=== PATIENT | female | born 1940 | race Caucasian/White ===

== ENCOUNTER 2018-10-03 09:32 | Emergency (ER) | payer MEDICARE, OTHER ==
[~2018-10-03] VITALS: Ht 157.5 cm; Wt 54.4 kg
[~2018-10-03 09:32] MED LIST: AC325T PO; ATEN-147 PO; Folic Acid PO; Gabapentin PO; HYDR-34 PO; Multivitamins/Minerals Therap PO; PNT40TEC PO; Tramadol Hcl PO
[2018-10-03] MEDS ORDERED: HYDROcodone/APAP 10 MG/325 MG (LORTAB) TAB PO ONE (10:15)
[2018-10-03 10:31] VITALS: BP_SYST 159; BP_SYST 163; BP_SYST 181; BP_DIAS 103; BP_DIAS 72; BP_DIAS 98
--- NOTE | 2018-10-03 10:31 | NUR ---
Pt reports no change in symptoms with ortho static vitals
--- NOTE | 2018-10-03 11:30 | Diagnostic Imaging Report ---
Indication: Shoulder pain. Back pain. Recent fall. Comparison: Chest ray graft dated 09/07/2014 Findings: Three radiographic views of the left shoulder were obtained. There is no radiographic evidence of acute fracture or dislocation of the left shoulder. Osseous structures of the left shoulder are intact. There is however advanced joint space narrowing of the glenohumeral and acromiohumeral joint spaces. Joint spaces are otherwise intact. Included portions of the left hemithorax show acute-appearing fractures of the posterior fourth through seventh ribs. There does appear to be mild displacement of the fourth and seventh rib fracture fragments. Impression: 1. No acute fracture or dislocation left shoulder. 2. Acute posterior left fourth through seventh rib fractures as described above. 3. Advanced narrowing of the acromiohumeral joint space. Findings can be seen with chronic rotator cuff tear. Dictated by: Dictated on workstation # [id number]
[2018-10-03 11:40] LABS: BASOPHILS % (AUTO) 0 % (0-10); EOSINOPHILS % (AUTO) 0 % (0-10); HEMATOCRIT 38 % (35-52); HEMOGLOBIN 12.6 G/DL (11.5-16.0); LYMPHOCYTES # (AUTO) 0.6 X 10^3 (1.0-4.0); LYMPHOCYTES % (AUTO) 4 % (12-44); MEAN CORPUSCULAR HEMOGLOBIN 31 PG (25-34); MEAN CORPUSCULAR HGB CONC 33 G/DL (32-36); MEAN CORPUSCULAR VOLUME 95 FL (80-99); MONOCYTES # (AUTO) 0.8 X 10^3 (0.0-1.0); MONOCYTES % (AUTO) 5 % (0-12); NEUTROPHILS % (AUTO) 90 % (42-75); PLATELET COUNT 265 10^3/uL (130-400); RED CELL DISTRIBUTION WIDTH 12.1 % (10.0-14.5); WHITE BLOOD COUNT 14.4 10^3/uL (4.3-11.0)
--- NOTE | 2018-10-03 11:50 | ED General ---
General Chief Complaint: Trauma-Non Activation Stated Complaint: FALL Nursing Triage Note: To ED via EMS. Pt reports falling last night against the bed. Pt reports feeling dizzy when pt fell. Pt reports multiple dizzy spells recently. Pt denies LOC or hitting head. Pt c/o L sided pain. EMS reports giving pt 50 mcg of fentanyl enroute to ED. Nursing Sepsis Screen: No Definite Risk History of Present Illness Date Seen by Provider: Oct 03, 2018 Time Seen by Provider: 11:00 Initial Comments This is a 78 y/o f who presents to the ED for evaluation. Pt reports GL fall last night. Got up to go to the bathroom was dizzy and fell, landing on Left side. History of RA and ambulates with a cane using LUE. Spouse helped her get up and she was able to go to the restroom and get back to bed. Today increased pain and trouble ambulating 2/2 pain. Reports Left upper back pain, constant, 9/ 10, worse with movement. no chest pain, no palpitations, denies any current dizziness/lightheadedness. No dysuria but history of recurrent UTIs. Allergies and Home Medications Allergies Uncoded Allergies: UNKNOWN BLADDER MED (Allergy, Unknown, 10/03/18) none (Adverse Reaction, Unknown, 08/20/14) Home Medications Acetaminophen 325 Mg Tab, 650 MG PO Q4H PRN for MILD PAIN Prescribed by: TERRY SEO on 09/06/14 143 Atenolol 25 Mg Tab, 25 MG PO DAILY Prescribed by: TERRY SEO on 09/06/14 143 Hydrocodone Bit/Acetaminophen 1 Ea Tablet, 1 EA PO Q4H PRN for SEVERE PAIN Prescribed by: TERRY SEO on 09/06/14 143 Pantoprazole Sod 40 Mg Tab, 40 MG PO DAILY@0700 Prescribed by: TERRY SEO on 09/06/14 143 [Folic Acid] 1 MG TAB, 1 MG PO DAILY Prescribed by: TERRY SEO on 09/06/14 143 [Gabapentin] 300 MG CAP, 300 MG PO HS Prescribed by: TERRY SEO on 09/06/14 143 [Multivitamins/Minerals Therap] 1 EA TABLET, 1 EA PO DAILY@0700 Prescribed by: TERRY SEO on 09/06/14 143 [Tramadol Hcl] 50 MG TAB, 50 MG PO TID PRN for MODERATE PAIN Prescribed by: TERRY SEO on 09/06/14 [id number] Patient Home Medication List Home Medication List Reviewed: Yes Review of Systems Review of Systems Constitutional: No chills, No fever; weakness Skin: no rash, no itching, no lesions Resp: no cough, no SOB, no wheezing Cards: no chest pain, no orthopnea, no LE edema, no palpitations GI: no abdominal pain, no nausea, no vomiting, no diarrhea : no dysuria Neurological: no headache, +dizziness, no numbness/tingling. Endo: no polyuria, no polyphagia, no polydipsia Psych: No depression, no substance abuse, No substance abuse MSK: +back pain, +joint pain Past Azmzuvb-Rbusgc-Bxddza Hx Patient Social History Recent Foreign Travel: No Contact w/Someone Who Travel: No Recent Infectious Disease Expo: No Immunizations Up To Date Tetanus Booster (TDap): More than 5yrs PED Vaccines UTD: No Date of Pneumonia Vaccine: Aug 20, 2013 Date of Influenza Vaccine: Apr 19, 2014 Past Medical History Eye Surgery, Neurological Pneumonia Reproductive Disorders: No Female Reproductive Disorders: Denies Sexually Transmitted Disease: No HIV/AIDS: No UTI-Chronic Arthritis, Rheumatoid Arthritis, Back Injury, Fractures Cataract Loss of Vision: Denies Hearing Impairment: Denies Adverse Reaction/Blood Tranf: No Family Medical History Patient reports no known family medical history. Physical Exam Vital Signs Vital Signs - First Documented 10/03/18 09:32 Temp 97.9 Pulse 94 Resp 17 B/P (MAP) 137/107 (117) Pulse Ox 94 O2 Delivery Room Air Capillary Refill : Less Than 3 Seconds Height, Weight, BMI Height: 5'2.00" Weight: 120lbs. oz. 54.940856vw; BMI Method:Stated General Appearance: WD/WN, Mild Distress Comments HEENT: NC/AT Skins: Chronic venous stasis changes to bilateral LE Neck: No JVD, Normal ROM, no midline spinal tenderness Respiratory: No respiratory distress, lungs clear to auscultation bilateral, no wheezing, Cardio: RRR, no rubs, no murmurs, no clicks, no gallops, Radial pulses +2/4 bilateral GI: Soft, non-distended, no masses, non-tender Back: limited ROM 2/2 pain, accentuated kyphosis, No midline spinal tenderness. Moderate tenderness to Mid-clavicular line on back approx T3-T8 Extremities: Chronic deformities of diffuse MCP of bilateral hands with some associated decreased ROM. No swelling, no deformities, pulses present in all 4 extremities Psych: Calm, Cooperative, Good judgement, Focused Exam Lactate Level 10/03/18 13:30: Lactic Acid Level 1.43 Lactic Acid Level Laboratory Tests Test 10/03/18 13:30 Lactic Acid Level 1.43 MMOL/L (0.50-2.00) Progress/Results/Core Measures Suspected Sepsis Recent Fever Within 48 Hours: No Infection Criteria Present: None New/Unexplained Altered Menta: No Sepsis Screen: No Definite Risk SIRS Temperature:97.9 Pulse: 94 Respiratory Rate: 17 Laboratory Tests 10/03/18 11:30: White Blood Count 14.4H Blood Pressure 137 /107 Mean: 117 10/03/18 13:30: Lactic Acid Level 1.43 Laboratory Tests 10/03/18 11:30: Creatinine 0.55L, Platelet Count 265 Results/Orders Lab Results Laboratory Tests Test 10/03/18 11:30 10/03/18 11:50 10/03/18 13:30 Range/Units White Blood Count 14.4 H 4.3-11.0 10^3/uL Red Blood Count 4.04 L 4.35-5.85 10^6/uL Hemoglobin 12.6 11.5-16.0 G/DL Hematocrit 38 35-52 % Mean Corpuscular Volume 95 80-99 FL Mean Corpuscular Hemoglobin 31 25-34 PG Mean Corpuscular Hemoglobin Concent 33 32-36 G/DL Red Cell Distribution Width 12.1 10.0-14.5 % Platelet Count 265 130-400 10^3/uL Mean Platelet Volume 9.0 7.4-10.4 FL Neutrophils (%) (Auto) 90 H 42-75 % Lymphocytes (%) (Auto) 4 L 12-44 % Monocytes (%) (Auto) 5 0-12 % Eosinophils (%) (Auto) 0 0-10 % Basophils (%) (Auto) 0 0-10 % Neutrophils # (Auto) 13.0 H 1.8-7.8 X 10^3 Lymphocytes # (Auto) 0.6 L 1.0-4.0 X 10^3 Monocytes # (Auto) 0.8 0.0-1.0 X 10^3 Eosinophils # (Auto) 0.0 0.0-0.3 10^3/uL Basophils # (Auto) 0.0 0.0-0.1 10^3/uL Neutrophils % (Manual) 92 % Lymphocytes % (Manual) 3 % Monocytes % (Manual) 2 % Eosinophils % (Manual) 0 % Basophils % (Manual) 0 % Band Neutrophils 3 % Blood Morphology Comment NORMAL Sodium Level 137 135-145 MMOL/L Potassium Level 4.6 3.6-5.0 MMOL/L Chloride Level 96 L 98-107 MMOL/L Carbon Dioxide Level 28 21-32 MMOL/L Anion Gap 13 5-14 MMOL/L Blood Urea Nitrogen 12 7-18 MG/DL Creatinine 0.55 L 0.60-1.30 MG/DL Estimat Glomerular Filtration Rate > 60 BUN/Creatinine Ratio 22 Glucose Level 246 H 70-105 MG/DL Calcium Level 9.7 8.5-10.1 MG/DL Troponin T 6 <=10 NG/L Urine Color YELLOW Urine Clarity CLEAR Urine pH 7.0 5-9 Urine Specific [place] 1.015 L 1.016-1.022 Urine Protein NEGATIVE NEGATIVE Urine Glucose (UA) 2+ H NEGATIVE Urine Ketones 3+ H NEGATIVE Urine Nitrite NEGATIVE NEGATIVE Urine Bilirubin NEGATIVE NEGATIVE Urine Urobilinogen 0.2 NORMAL MG/DL Urine Leukocyte Esterase NEGATIVE NEGATIVE Urine RBC (Auto) TRACE H NEGATIVE Urine RBC 5-10 H /HPF Urine WBC 10-25 H /HPF Urine Crystals NONE /LPF Urine Bacteria MODERATE H /HPF Urine Casts NONE /LPF Urine Mucus NEGATIVE /LPF Urine Culture Indicated YES Lactic Acid Level 1.43 0.50-2.00 MMOL/L My Orders Orders - SAHRA SMALLWOOD T DO Cbc With Automated Diff (10/03/18 10:09) Basic Metabolic Panel (10/03/18 10:09) Ua Culture If Indicated (10/03/18 10:09) Hydrocodone/Apap 10/325 Tablet (Lortab 1 (10/03/18 10:15) Troponin T (10/03/18 10:09) Ekg Tracing (10/03/18 10:09) Orthostatic Vital Signs (Adult (10/03/18 10:09) Shoulder 2 View Left (10/03/18 10:29) Thoracic Spine 2 View Only (10/03/18 10:29) Manual Differential (10/03/18 11:30) Urine Culture (10/03/18 11:50) Ns Iv 500 Ml (Sodium Chloride 0.9%) (10/03/18 12:15) Ns Iv 500 Ml (Sodium Chloride 0.9%) (10/03/18 12:13) Ceftriaxone For Iv Use (Rocephin For I (10/03/18 12:30) Lactic Acid Analyzer (10/03/18 12:19) Blood Culture (10/03/18 12:19) Chest Pa/Lat (2 View) (10/03/18 11:59) Medications Given in ED Current Medications Medications Dose Ordered Sig/Shae Route Start Time Stop Time Status Last Admin Dose Admin Acetaminophen/ Hydrocodone Bitart 1 ea ONCE ONCE PO 10/03/18 10:15 10/03/18 10:16 DC 10/03/18 10:29 1 EA Ceftriaxone Sodium 1000 mg/ Sterile Water 10 ml @ 200 mls/hr ONCE ONCE IV 10/03/18 12:30 10/03/18 12:32 DC 10/03/18 13:47 200 MLS/HR Vital Signs/I&O 10/03/18 10/03/18 09:32 10:31 Temp 97.9 Pulse 94 94 93 111 Resp 17 B/P (MAP) 137/107 (117) 159/72 (101) 181/103 (129) 163/98 (119) Pulse Ox 94 O2 Delivery Room Air Capillary Refill : Less Than 3 Seconds Blood Pressure Mean: 117 Progress Note : Time: 12:24 Progress Note Pt with UTI and multiple rib fractures seen on XR of L shoulder. T-spine with no acute fractures. No acute fractures of shoulder. will get 2View CXR to fully evaluate. Pt also with UTI. Will plan to admit. Has been hemodynamically stable while in the ED. [facility] is on diversion. Discussed with Dr. Luke, area field person for [facility] who is agreeable to admit. Blood culture /lactic acid drawn and Ceftriaxone started for UTI. 1425: CXR with small pleural effusion vs more likely small hemothorax. Remains comfortable. Is not requiring O2. Stable for transfer. Transportation arriving soon. ECG Initial ECG Impression Date: Oct 03, 2018 Initial ECG Impression Time: 10:19 Initial ECG Rhythm: Normal Sinus Initial ECG Comparisson: No Previous ECG Available Comment HR 96, no significant ST segment changes. Diagnostic Imaging Comments CXR 2 View IMPRESSION: 1. Small left-sided pleural fluid collection which again may be on the basis of hemothorax. 2. No pneumothorax. 3. The patient's known left-sided rib fractures are much less conspicuous on this exam when compared to the previous shoulder series. Left Shoulder Impression: 1. No acute fracture or dislocation left shoulder. 2. Acute posterior left fourth through seventh rib fractures as described above. 3. Advanced narrowing of the acromiohumeral joint space. Findings can be seen with chronic rotator cuff tear. Thoracic IMPRESSION: 1. No radiographic evidence of acute fracture or dislocation of the thoracic spine. 2. Mild multilevel degenerative changes. Dictated on workstation # [id number] Departure Impression Primary Impression: Multiple rib fractures involving four or more ribs Additional Impressions: Weakness Urinary tract infection Hemothorax, left Disposition: XFER SHT-TRM HOSP Condition: Improved Departure-Patient Inst. Referrals: ELIER REYNOLDS MD (PCP/Family) Primary Care Physician SAHRA SMALLWOOD DO Oct 03, 2018 11:50
--- NOTE | 2018-10-03 11:53 | Diagnostic Imaging Report ---
INDICATION: Fall. Back pain. COMPARISON: Shoulder radiograph from same day. FINDINGS: Frontal and lateral radiographic views of the thoracic spine were obtained. Superior portions of the thoracic spine are suboptimally visualized on the lateral view secondary to superimposition of overlying osseous and soft tissue structures. Note is made of partially visualized postsurgical changes of previous cervical thoracic spinal fusion. Static alignment of the thoracic spine is maintained. There is no significant anteroretrolisthesis. There is no evidence of jumped facets. Visualized vertebral body heights also appear preserved. Mild multilevel degenerative changes are noted. Included portions of the lungs are clear. Posterior left rib fracture seen on separately performed shoulder radiographs are inconspicuous on this exam. IMPRESSION: 1. No radiographic evidence of acute fracture or dislocation of the thoracic spine. 2. Mild multilevel degenerative changes. Dictated by: Dictated on workstation # [id number]
[2018-10-03 12:00] LABS: BACTERIA,URINE MODERATE /HPF; BILIRUBIN,URINE NEGATIVE (NEGATIVE); CLARITY,URINE CLEAR; COLOR,URINE YELLOW; GLUCOSE, URINE (UA) 2+ (NEGATIVE); KETONES,URINE 3+ (NEGATIVE); LEUKOCYTE ESTERASE ,URINE NEGATIVE (NEGATIVE); NITRITE,URINE NEGATIVE (NEGATIVE); PROTEIN,URINE NEGATIVE (NEGATIVE); UROBILINOGEN,URINE 0.2 MG/DL (NORMAL)
[2018-10-03 12:01] LABS: BUN/CREATININE RATIO 22; CALCIUM 9.7 MG/DL (8.5-10.1); CARBON DIOXIDE 28 MMOL/L (21-32); CHLORIDE 96 MMOL/L (98-107); CREATININE SERUM 0.55 MG/DL (0.60-1.30); GFR ESTIMATED > 60; GLUCOSE 246 MG/DL (70-105); POTASSIUM 4.6 MMOL/L (3.6-5.0); SODIUM 137 MMOL/L (135-145)
[2018-10-03 12:10] LABS: BAND NEUTROPHILS 3 %; LYMPHOCYTES % (MANUAL) 3 %; MONOCYTES % (MANUAL) 2 %; NEUTROPHILS % (MANUAL) 92 %
[2018-10-03 12:11] LABS: BASOPHILS % (MANUAL) 0 %; EOSINOPHILS % (MANUAL) 0 %; RBC MORPH NORMAL
[2018-10-03] MEDS ORDERED: NS IV 500 ML 500 ML ONE (12:13)
[2018-10-03] MEDS ORDERED: NS IV 500 ML 500 ML IV SCH (12:15)
[2018-10-03] MEDS ORDERED: cefTRIAXone FOR IV USE 1,000 MG in WATER (STERILE) FOR INJECTION 10 ML IV ONE (12:30)
--- NOTE | 2018-10-03 13:33 | Diagnostic Imaging Report ---
INDICATION: Recent fall. COMPARISON: 09/07/2014. FINDINGS: Frontal and lateral radiographic views of the chest were obtained and demonstrate interval development of a small amount of left-sided pleural fluid which may be on the basis of a hemothorax given the history of recent trauma and left-sided rib fractures. There is no large effusion on the right. No pneumothorax is seen on either side. The posterior rib fractures seen on the previous performed shoulder radiographic series are much less conspicuous on this exam. The cardiac silhouette and pulmonary vasculature are within normal limits. IMPRESSION: 1. Small left-sided pleural fluid collection which again may be on the basis of hemothorax. 2. No pneumothorax. 3. The patient's known left-sided rib fractures are much less conspicuous on this exam when compared to the previous shoulder series. Dictated by: Dictated on workstation # [id number]
[2018-10-03 14:54] VITALS: BP 148/77
== END 2018-10-03 14:54 | disposition short-term general hospital (02) ==
LOC: EDUNIT# 09:32 → ER FS 09:34
DX: S22.42XA Multiple fractures of ribs, left side, initial encounter for closed fracture (principal); N39.0 Urinary tract infection, site not specified; S27.1XXA Traumatic hemothorax, initial encounter; R53.1 Weakness; M06.9 Rheumatoid arthritis, unspecified; Z87.01 Personal history of pneumonia (recurrent); Z87.440 Personal history of urinary (tract) infections; W18.30XA Fall on same level, unspecified, initial encounter; Y92.002 Bathroom of unspecified non-institutional (private) residence as the place of occurrence of the external cause
CPT/HCPCS: 36415; 51702; 71046; 72070; 73030; 80048; 81000; 83605; 84484; 85007; 85027; 87040; 87077; 87088; 87186; 93005

== ENCOUNTER 2018-11-02 15:46 | Inpatient (IN) | payer MEDICARE, OTHER ==
[2018-11-02] VITALS (18 sets, daily range): BP systolic 95–121; BP diastolic 57–69
[~2018-11-02] VITALS: Ht 157.5 cm; Wt 83.1 kg
--- NOTE | 2018-11-02 15:51 | ED GI ---
General Chief Complaint: Bloody stool Stated Complaint: WEAK,SOB,VOMITING,BLOODY STOOL Source of Information: Patient, Family, Alf Records Exam Limitations: No Limitations History of Present Illness Date Seen by Provider: Nov 02, 2018 Time Seen by Provider: 15:52 78 y/o F with dizziness, fatigue, shortness of breath, hematemesis, hematochezia and tarry stools since yesterday. Had something similar many years ago when she was hospitalized for a "bad UTI" then had ulcers in her stomach. She has had a negative colonoscopy in the past but does not recall when that was done. No abdominal pain or nausea. Denies chest pain. Allergies and Home Medications Allergies Uncoded Allergies: UNKNOWN BLADDER MED (Allergy, Unknown, 10/03/18) none (Adverse Reaction, Unknown, 08/20/14) Home Medications Acetaminophen 325 Mg Tab, 650 MG PO Q4H PRN for MILD PAIN Prescribed by: TERRY SEO on 09/06/14 143 Atenolol 25 Mg Tab, 25 MG PO DAILY Prescribed by: TERRY SEO on 09/06/14 143 Hydrocodone Bit/Acetaminophen 1 Ea Tablet, 1 EA PO Q4H PRN for SEVERE PAIN Prescribed by: TERRY SEO on 09/06/14 143 Pantoprazole Sod 40 Mg Tab, 40 MG PO DAILY@0700 Prescribed by: TERRY SEO on 09/06/14 143 [Folic Acid] 1 MG TAB, 1 MG PO DAILY Prescribed by: TERRY SEO on 09/06/14 143 [Gabapentin] 300 MG CAP, 300 MG PO HS Prescribed by: TERRY SEO on 09/06/14 143 [Multivitamins/Minerals Therap] 1 EA TABLET, 1 EA PO DAILY@0700 Prescribed by: TERRY SEO on 09/06/14 143 [Tramadol Hcl] 50 MG TAB, 50 MG PO TID PRN for MODERATE PAIN Prescribed by: TERRY SEO on 09/06/14 143 Patient Home Medication List Home Medication List Reviewed: Yes Review of Systems Review of Systems Constitutional: No chills; dizziness; No fever; weakness EENTM: No Blurred Vision, No Double Vision Respiratory: Denies Cough; Shortness of Air, SOA With Exertion Cardiovascular: Denies Chest Pain, Denies Edema, Denies Irregular Heart Rate; Lightheadedness; Denies Syncope Gastrointestinal: Denies Abdominal Pain, Denies Nausea; Rectal Bleeding, Vomiting Genitourinary: Denies Burning, Denies Drainage, Denies Hematuria Musculoskeletal: No back pain, No joint pain, No muscle pain, No muscle stiffness Skin: No lesions, No rash Psychiatric/Neurological: Denies Numbness, Denies Tingling Past Wonxndj-Bvoahs-Ppisca Hx Past Med/Social Hx: Reviewed Nursing Past Med/Soc Hx Patient Social History 2nd Hand Smoke Exposure: No Recent Foreign Travel: No Contact w/Someone Who Travel: No Immunizations Up To Date Tetanus Booster (TDap): More than 5yrs PED Vaccines UTD: No Date of Pneumonia Vaccine: Aug 20, 2013 Date of Influenza Vaccine: Apr 19, 2014 Past Medical History Surgeries: Yes (cataracts, R hip replacement) Eye Surgery, Neurological, Orthopedic Respiratory: No Pneumonia Cardiac: Yes Neurological: No Reproductive Disorders: No Female Reproductive Disorders: Denies Sexually Transmitted Disease: No HIV/AIDS: No UTI-Chronic Gastrointestinal: No Musculoskeletal: Yes Arthritis, Rheumatoid Arthritis, Back Injury, Fractures Endocrine: No Cataract Loss of Vision: Denies Hearing Impairment: Denies Cancer: No Psychosocial: No Integumentary: No Blood Disorders: No Adverse Reaction/Blood Tranf: No Family Medical History Patient reports no known family medical history. Physical Exam Vital Signs Vital Signs - First Documented 11/02/18 15:56 Temp 98.3 Pulse 95 Resp 35 B/P (MAP) 121/81 (94) Pulse Ox 96 O2 Delivery Room Air Capillary Refill : Height/Weight/BMI Height: 5'2.00" Weight: 120lbs. oz. 54.776425do; BMI Method:Stated General Appearance: WD/WN, no apparent distress HEENT: PERRL/EOMI, pale conjunctivae (R), pale conjunctivae (L) Neck: non-tender, full range of motion, supple, normal inspection Respiratory: chest non-tender, lungs clear, normal breath sounds, no respiratory distress, no accessory muscle use Cardiovascular: regular rate, rhythm, no edema, no gallop, no JVD, no murmur Gastrointestinal: normal bowel sounds, non tender, soft, no organomegaly, no pulsatile mass Rectal: normal rectal tone, black stool, blood streaked stool, heme positive stool, hemorrhoids Back: normal inspection, no CVA tenderness Neurologic/Psychiatric: no motor/sensory deficits, alert, normal mood/affect, oriented x 3 Skin: normal color, warm/dry Progress/Results/Core Measures Results/Orders Lab Results Laboratory Tests Test 11/02/18 15:58 Range/Units White Blood Count 12.7 H 4.3-11.0 10^3/uL Red Blood Count 2.15 L 4.35-5.85 10^6/uL Hemoglobin 6.6 *L 11.5-16.0 G/DL Hematocrit 21 L 35-52 % Mean Corpuscular Volume 99 80-99 FL Mean Corpuscular Hemoglobin 31 25-34 PG Mean Corpuscular Hemoglobin Concent 31 L 32-36 G/DL Red Cell Distribution Width 13.5 10.0-14.5 % Platelet Count 404 H 130-400 10^3/uL Mean Platelet Volume 9.1 7.4-10.4 FL Neutrophils (%) (Auto) 77 H 42-75 % Lymphocytes (%) (Auto) 16 12-44 % Monocytes (%) (Auto) 6 0-12 % Eosinophils (%) (Auto) 0 0-10 % Basophils (%) (Auto) 0 0-10 % Neutrophils # (Auto) 9.8 H 1.8-7.8 X 10^3 Lymphocytes # (Auto) 2.0 1.0-4.0 X 10^3 Monocytes # (Auto) 0.8 0.0-1.0 X 10^3 Eosinophils # (Auto) 0.0 0.0-0.3 10^3/uL Basophils # (Auto) 0.0 0.0-0.1 10^3/uL Prothrombin Time 14.4 12.2-14.7 SEC INR Comment 1.1 0.8-1.4 Activated Partial Thromboplast Time 29 24-35 SEC Sodium Level 132 L 135-145 MMOL/L Potassium Level 4.9 3.6-5.0 MMOL/L Chloride Level 97 L 98-107 MMOL/L Carbon Dioxide Level 25 21-32 MMOL/L Anion Gap 10 5-14 MMOL/L Blood Urea Nitrogen 43 H 7-18 MG/DL Creatinine 0.62 0.60-1.30 MG/DL Estimat Glomerular Filtration Rate > 60 BUN/Creatinine Ratio 69 Glucose Level 495 *H 70-105 MG/DL Calcium Level 8.8 8.5-10.1 MG/DL Corrected Calcium 9.8 8.5-10.1 MG/DL Total Bilirubin 0.2 0.1-1.0 MG/DL Aspartate Amino Transf (AST/SGOT) 10 5-34 U/L Alanine Aminotransferase (ALT/SGPT) 9 0-55 U/L Alkaline Phosphatase 97 40-136 U/L Total Protein 6.6 6.4-8.2 GM/DL Albumin 2.8 L 3.2-4.5 GM/DL Lipase 53 8-78 U/L My Orders Orders - ALBERTO MATTA MD Comprehensive Metabolic Panel (11/02/18 15:59) Lipase (11/02/18 15:59) Ua Culture If Indicated (11/02/18 15:59) Cbc With Automated Diff (11/02/18 15:59) Type And Screen (11/02/18 15:59) Protime With Inr (11/02/18 15:59) Partial Thromboplastin Time (11/02/18 15:59) Vital Signs/I&O 11/02/18 15:56 Temp 98.3 Pulse 95 Resp 35 B/P (MAP) 121/81 (94) Pulse Ox 96 O2 Delivery Room Air Progress Progress Note #1: Progress Note hemeoccult + dark tarry stool with blood streaks. check labs, will likely need admission. Progress Note #2: Progress Note hgb 6.6. Not hypotensive, no signs of shock. Only uncrossmatched units available here. Departure Communication (Admissions) Time/Spoke to Admitting Phy: 17:[address] Mcdonald who will admit for continued care. ICU, inpatient for acute GIB. Impression Primary Impression: Acute GI bleeding Disposition: ADMITTED INPATIENT Condition: Stable Admissions Decision to Admit Reason: Admit from ER (General) Decision to Admit/Date: Nov 02, 2018 Time/Decision to Admit Time: 16:58 Departure-Patient Inst. Referrals: ELIER REYNOLDS MD (PCP/Family) Primary Care Physician ALBERTO MATTA MD Nov 02, 2018 15:51
[2018-11-02 16:21] LABS: WHITE BLOOD COUNT 12.7 10^3/uL (4.3-11.0)
[2018-11-02 16:22] LABS: HEMATOCRIT 21 % (35-52); HEMOGLOBIN 6.6 G/DL (11.5-16.0); MEAN CORPUSCULAR HEMOGLOBIN 31 PG (25-34)
[2018-11-02 16:25] LABS: BASOPHILS % (AUTO) 0 % (0-10); EOSINOPHILS % (AUTO) 0 % (0-10); LYMPHOCYTES % (AUTO) 16 % (12-44); MEAN CORPUSCULAR HGB CONC 31 G/DL (32-36); MEAN CORPUSCULAR VOLUME 99 FL (80-99); MEAN PLATELET VOLUME 9.1 FL (7.4-10.4); MONOCYTES % (AUTO) 6 % (0-12); NEUTROPHILS % (AUTO) 77 % (42-75); PLATELET COUNT 404 10^3/uL (130-400); RED CELL DISTRIBUTION WIDTH 13.5 % (10.0-14.5)
[2018-11-02 16:26] LABS: MONOCYTES # (AUTO) 0.8 X 10^3 (0.0-1.0); NEUTROPHILS # (AUTO) 9.8 X 10^3 (1.8-7.8)
--- NOTE | 2018-11-02 16:30 | NUR ---
Was going to attempt to get urine sample from patient, but patient notified staff that she was going in her brief.
[2018-11-02 16:33] LABS: INR 1.1 (0.8-1.4); PROTHROMBIN TIME PATIENT 14.4 SEC (12.2-14.7)
[2018-11-02 16:52] LABS: SODIUM 132 MMOL/L (135-145)
[2018-11-02 16:53] LABS: CARBON DIOXIDE 25 MMOL/L (21-32); CHLORIDE 97 MMOL/L (98-107); POTASSIUM 4.9 MMOL/L (3.6-5.0)
[2018-11-02 16:54] LABS: BUN/CREATININE RATIO 69; CREATININE SERUM 0.62 MG/DL (0.60-1.30); GFR ESTIMATED > 60
[2018-11-02 16:55] LABS: ALANINE AMINOTRANSFERASE 9 U/L (0-55); ALKALINE PHOSPHATASE 97 U/L (40-136); BILIRUBIN,TOTAL 0.2 MG/DL (0.1-1.0); CALCIUM 8.8 MG/DL (8.5-10.1); GLUCOSE 495 MG/DL (70-105)
[2018-11-02 16:56] LABS: ALBUMIN 2.8 GM/DL (3.2-4.5); LIPASE 53 U/L (8-78); TOTAL PROTEIN 6.6 GM/DL (6.4-8.2)
[2018-11-02] MEDS ORDERED: NS IV 500 ML 500 ML IV SCH (17:37)
[2018-11-02] MEDS ORDERED: ACETAMINOPHEN 650 MG SUPP (TYLENOL) PR PRN (17:45)
[2018-11-02] MEDS ORDERED: diphenhydrAMINE 25 MG TAB (BENADRYL) PO PRN (17:45)
[2018-11-02] MEDS ORDERED: CALCIUM CARBONATE 500 MG (TUMS) TAB.CHEW PO PRN (17:45)
[2018-11-02] MEDS ORDERED: MELATONIN 3 MG TABLET PO PRN (17:45)
[2018-11-02] MEDS ORDERED: ACETAMINOPHEN 500 MG TAB (TYLENOL) PO PRN (17:45)
--- NOTE | 2018-11-02 17:55 | NUR ---
EMS arrived at this time and report was given to MICAH Servin. Care was transferred at this time.
[2018-11-02] MEDS ORDERED: CATHETER FLUSH 10 ML SYR IV PRN (18:00)
[2018-11-02 19:25] LABS: BASOPHILS % (AUTO) 0 % (0-10); EOSINOPHILS % (AUTO) 0 % (0-10); LYMPHOCYTES # (AUTO) 1.8 X 10^3 (1.0-4.0); LYMPHOCYTES % (AUTO) 17 % (12-44); MEAN CORPUSCULAR HEMOGLOBIN 31 PG (25-34); MEAN CORPUSCULAR HGB CONC 31 G/DL (32-36); MEAN CORPUSCULAR VOLUME 98 FL (80-99); MEAN PLATELET VOLUME 8.4 FL (7.4-10.4); MONOCYTES # (AUTO) 0.8 X 10^3 (0.0-1.0); MONOCYTES % (AUTO) 8 % (0-12); NEUTROPHILS # (AUTO) 7.9 X 10^3 (1.8-7.8); NEUTROPHILS % (AUTO) 75 % (42-75); PLATELET COUNT 390 10^3/uL (130-400); RED CELL DISTRIBUTION WIDTH 13.4 % (10.0-14.5); WHITE BLOOD COUNT 10.5 10^3/uL (4.3-11.0)
[2018-11-02 19:27] LABS: HEMATOCRIT 19 % (35-52); HEMOGLOBIN 5.8 G/DL (11.5-16.0)
[2018-11-02 19:30] LABS: SMEAR SCAN COMMENT YES
--- NOTE | 2018-11-02 19:34 | NUR ---
[id number] Patient arrived on unit via cart with [employer] Staff. Patient in no apparent distress. Denies pain. Dressing looks good, no drainage noted. No hematoma or bruising. VSS. Lung sounds clear. Heart tones normal. Addendum: 11/02/18 at 1937 by ZELALEM SANCHES RN DISREGARD PREVIOUS NOTE. CHARTED IN ERROR ON WRONG PATIENT.
--- NOTE | 2018-11-02 19:37 | NUR ---
184 Patient arrived on unit per cart with EMS staff. VSS. Patient in no apparent distress. Complains of no pain. Lung Sounds clear. Pulses palpable in lower extremities. Pale in color.
[2018-11-02 19:51] LABS: ALANINE AMINOTRANSFERASE 14 U/L (0-55); ALBUMIN 2.8 GM/DL (3.2-4.5); ALKALINE PHOSPHATASE 82 U/L (40-136); BILIRUBIN,TOTAL 0.2 MG/DL (0.1-1.0); BUN/CREATININE RATIO 52; CALCIUM 8.5 MG/DL (8.5-10.1); CARBON DIOXIDE 25 MMOL/L (21-32); CHLORIDE 107 MMOL/L (98-107); CREATININE SERUM 0.75 MG/DL (0.60-1.30); GFR ESTIMATED > 60; GLUCOSE 352 MG/DL (70-105); POTASSIUM 4.3 MMOL/L (3.6-5.0); SODIUM 138 MMOL/L (135-145); TOTAL PROTEIN 5.9 GM/DL (6.4-8.2)
[2018-11-02 20:49] LABS: CLARITY,URINE CLEAR; COLOR,URINE YELLOW; PH,URINE 5 (5-9)
[2018-11-02 20:50] LABS: BILIRUBIN,URINE NEGATIVE (NEGATIVE); GLUCOSE, URINE (UA) 4+ (NEGATIVE); KETONES,URINE NEGATIVE (NEGATIVE); LEUKOCYTE ESTERASE ,URINE NEGATIVE (NEGATIVE); NITRITE,URINE NEGATIVE (NEGATIVE); PROTEIN,URINE NEGATIVE (NEGATIVE); RBC,URINE RARE /HPF; UROBILINOGEN,URINE NORMAL (NORMAL)
[2018-11-02 20:53] LABS: BACTERIA,URINE NEGATIVE /HPF
[2018-11-02 20:54] LABS: AMORPHOUS SEDIMENT,UR MOD AMOR URATES /LPF; SQUAMOUS EPITHELIAL CELL,UR 0-2 /HPF
[2018-11-02] MEDS ORDERED: inSUlin ASPART (NovoLOG) 1 UNIT/0.01 ML (CHARGE PER UNIT) SC SCH (21:00)
[2018-11-02] MEDS: PANTOPRAZOLE 40 MG (PROTONIX) VIAL IV SCH (21:29)
[2018-11-03] VITALS (23 sets, daily range): BP systolic 102–143; BP diastolic 56–97
[2018-11-03] MEDS: NS IV 1000 ML 1,000 ML IV SCH ×4 (01:48→17:49)
[2018-11-03] MEDS: inSUlin ASPART (NovoLOG) 1 UNIT/0.01 ML (CHARGE PER UNIT) SC SCH ×5 (01:48→21:51)
[2018-11-03 03:50] LABS: BASOPHILS % (AUTO) 0 % (0-10); EOSINOPHILS # (AUTO) 0.3 10^3/uL (0.0-0.3); EOSINOPHILS % (AUTO) 2 % (0-10); HEMATOCRIT 28 % (35-52); HEMOGLOBIN 9.2 G/DL (11.5-16.0); LYMPHOCYTES # (AUTO) 2.2 X 10^3 (1.0-4.0); LYMPHOCYTES % (AUTO) 18 % (12-44); MEAN CORPUSCULAR HEMOGLOBIN 30 PG (25-34); MEAN CORPUSCULAR HGB CONC 33 G/DL (32-36); MEAN CORPUSCULAR VOLUME 91 FL (80-99); MEAN PLATELET VOLUME 8.8 FL (7.4-10.4); MONOCYTES # (AUTO) 1.3 X 10^3 (0.0-1.0); MONOCYTES % (AUTO) 11 % (0-12); NEUTROPHILS # (AUTO) 8.5 X 10^3 (1.8-7.8); NEUTROPHILS % (AUTO) 69 % (42-75); PLATELET COUNT 304 10^3/uL (130-400); RED CELL DISTRIBUTION WIDTH 16.5 % (10.0-14.5); WHITE BLOOD COUNT 12.4 10^3/uL (4.3-11.0)
[2018-11-03 04:21] LABS: ALANINE AMINOTRANSFERASE 9 U/L (0-55); ALBUMIN 2.7 GM/DL (3.2-4.5); ALKALINE PHOSPHATASE 78 U/L (40-136); BILIRUBIN,TOTAL 0.9 MG/DL (0.1-1.0); BUN/CREATININE RATIO 57; CALCIUM 8.5 MG/DL (8.5-10.1); CARBON DIOXIDE 23 MMOL/L (21-32); CHLORIDE 110 MMOL/L (98-107); CREATININE SERUM 0.58 MG/DL (0.60-1.30); GFR ESTIMATED > 60; GLUCOSE 147 MG/DL (70-105); MAGNESIUM 1.9 MG/DL (1.8-2.4); PHOSPHORUS 2.6 MG/DL (2.3-4.7); POTASSIUM 4.3 MMOL/L (3.6-5.0); SODIUM 142 MMOL/L (135-145); TOTAL PROTEIN 5.6 GM/DL (6.4-8.2)
--- NOTE | 2018-11-03 05:04 | Pulmonary Consultation ---
History of Present Illness History of Present Illness Date of Consultation 11/03/18 04:58 Time Seen by Provider: 04:58 Date of Admission History of Present Illness 78yo with hx of PUD from ECF presented as direct admit from [facility] ED secondary to dizziness, fatigue, worsening SOB. Symptoms started yesterday. Surgery is consulted. She is s/p 2 units of PRBC. She has had a previous GIB before however that has been "years" ago. Denies abdominal pain or nausea. No F/ NS/C. NO CP. I am consulted for ICU management. Allergies and Home Medications Allergies Uncoded Allergies: UNKNOWN BLADDER MED (Allergy, Unknown, 10/03/18) none (Adverse Reaction, Unknown, 08/20/14) Home Medications Acetaminophen 325 Mg Tab, 650 MG PO Q4H PRN for MILD PAIN Prescribed by: TERRY SEO on 09/06/14 143 Atenolol 25 Mg Tab, 25 MG PO DAILY Prescribed by: TERRY SEO on 09/06/14 143 Hydrocodone Bit/Acetaminophen 1 Ea Tablet, 1 EA PO Q4H PRN for SEVERE PAIN Prescribed by: TERRY SEO on 09/06/14 143 Pantoprazole Sod 40 Mg Tab, 40 MG PO DAILY@0700 Prescribed by: TERRY SEO on 09/06/14 1432 [Folic Acid] 1 MG TAB, 1 MG PO DAILY Prescribed by: TERRY SEO on 09/06/14 143 [Gabapentin] 300 MG CAP, 300 MG PO HS Prescribed by: TERRY SEO on 09/06/14 1432 [Multivitamins/Minerals Therap] 1 EA TABLET, 1 EA PO DAILY@0700 Prescribed by: TERRY SEO on 09/06/14 1432 [Tramadol Hcl] 50 MG TAB, 50 MG PO TID PRN for MODERATE PAIN Prescribed by: TERRY SEO on 09/06/14 1432 Past Nolgkca-Ydigyb-Xbnoed Hx Past Med/Social Hx: Reviewed Nursing Past Med/Soc Hx Patient Social History Alcohol Use: Denies Use Recreational Drug Use: No Smoking Status: Never a Smoker 2nd Hand Smoke Exposure: No Recent Foreign Travel: No Contact w/Someone Who Travel: No Recent Infectious Disease Expo: No Recent Hopitalizations: No Physical Abuse: No Sexual Abuse: No Mistreated: No Fear: No Immunizations Up To Date Tetanus Booster (TDap): More than 5yrs PED Vaccines UTD: No Date of Pneumonia Vaccine: Aug 20, 2013 Date of Influenza Vaccine: Apr 19, 2014 Seasonal Allergies Seasonal Allergies: No Past Medical History Surgeries: Yes Joint Replacement Respiratory: No Pneumonia Cardiac: No Neurological: No Reproductive Disorders: No Female Reproductive Disorders: Denies Sexually Transmitted Disease: No HIV/AIDS: No Genitourinary: Yes UTI-Chronic Gastrointestinal: Yes Gastroesophageal Reflux, Gastrointestinal Bleed Musculoskeletal: Yes Rheumatoid Arthritis Endocrine: Yes Diabetes, Non-Insulin dep HEENT: No Cataract Loss of Vision: Denies Hearing Impairment: Denies Cancer: No Psychosocial: No Integumentary: No Blood Disorders: No Adverse Reaction/Blood Tranf: No Family Medical History Patient reports no known family medical history. Review of Systems Time Seen by Provider: 07:17 Constitutional: Sweats, Weakness, Malaise; No: Fever, Chills, Other Eyes: No: Pain, Vision change, Conjunctivae inflammation, Eyelid inflammation, Other, Redness ENT: No: Ear pain, Ear discharge, Nose pain, Nose discharge, Nose congestion, Mouth pain, Mouth swelling, Throat pain, Throat swelling, Other Respiratory: Shortness of breath, SOB with excertion; No: Cough, Dry, Wheezing , Hemoptysis, Pleuritic Pain, Sputum, Wheezing, Other Cardiovascular: No: Chest Pain, Palpitations, Orthopnea, Paroxysmal Noc. Dyspnea, Edema, Lt Headedness, Other Gastrointestinal: Hematochezia; No: Nausea, Vomiting, Abdominal Pain, Diarrhea , Constipation, Melena, Other Genitourinary: No Dysuria, No Frequency, No Incontinence, No Hematuria, No Retention, No Other Musculoskeletal: No: other, neck pain, shoulder pain, arm pain, back pain, hand pain, leg pain, foot pain Sepsis Event Evaluation Height, Weight, BMI Height: 5'2.00" Weight: 122lbs. 1.0oz. 55.307576hs; 22.3 BMI Method:Actual Exam Exam Vital Signs Date Time Temp Pulse Resp B/P (MAP) Pulse Ox O2 Delivery O2 Flow Rate FiO2 11/03/18 04:00 85 27 106/56 (73) 94 Room Air 11/03/18 04:00 Room Air 11/03/18 04:00 96.8 11/03/18 03:00 83 28 106/59 (75) 95 Room Air 11/03/18 02:00 84 27 102/62 (75) 95 Room Air 11/03/18 01:42 97.5 90 26 115/71 96 Room Air 11/03/18 01:00 87 27 118/66 (83) 96 Room Air 11/03/18 01:00 89 11/03/18 00:00 89 30 103/61 (75) 96 Room Air 11/03/18 00:00 Room Air 11/02/18 23:27 96.6 92 28 121/63 96 Room Air 11/02/18 23:22 97.5 92 29 103/63 95 11/02/18 23:02 97.7 92 29 110/60 94 Room Air 11/02/18 23:00 92 28 111/69 (83) 95 Room Air 11/02/18 22:50 Room Air 11/02/18 22:00 97 29 101/57 (72) 94 Room Air 11/02/18 21:00 101 30 99/65 (76) 96 Room Air 11/02/18 20:45 101 30 109/60 (76) 94 Room Air 11/02/18 20:35 98.0 105 30 108/68 95 Room Air 11/02/18 20:30 104 31 106/62 (77) 96 Room Air 11/02/18 20:20 97.7 103 30 103/62 95 Room Air 11/02/18 20:15 104 32 110/62 (78) 94 Room Air 11/02/18 20:00 109 25 112/63 (79) 96 Room Air 11/02/18 19:45 Room Air 11/02/18 19:45 104 29 101/57 (72) 94 Room Air 11/02/18 19:33 98.8 97 25 98/68 (78) 97 11/02/18 19:31 111 97 21 11/02/18 19:30 110 26 109/66 (80) 97 Room Air 11/02/18 19:15 105 29 95/57 (70) 96 Room Air 11/02/18 18:57 106 11/02/18 18:45 99.1 103 15 104/59 (74) 92 Room Air 11/02/18 17:14 98.8 97 25 98/68 (78) 97 11/02/18 15:56 98.3 95 35 121/81 (94) 96 Room Air I & O 11/03/18 07:00 Intake Total 0 ml Output Total 500 ml Balance -500 ml Height & Weight Height: 5'2.00" Weight: 122lbs. 1.0oz. 55.430700xm; 22.3 BMI Method:Actual General Appearance: No Apparent Distress, WD/WN HEENT: PERRL/EOMI, Normal ENT Inspection, Pharynx Normal Neck: Full Range of Motion, Normal Inspection, Supple Respiratory: Chest Non Tender, No Accessory Muscle Use, No Respiratory Distress , Decreased Breath Sounds Cardiovascular: Regular Rate, Rhythm, No Edema, No Gallop Capillary Refill: Less Than 3 Seconds Gastrointestinal: normal bowel sounds, non tender, soft, no organomegaly, no pulsatile mass Extremity: Normal Capillary Refill, Normal Inspection, No Pedal Edema Neurologic/Psychiatric: Alert, Oriented x3 Skin: Normal Color, Warm/Dry Lymphatic: No Adenopathy Results Lab Laboratory Tests 11/02/18 15:58 11/02/18 19:10 11/03/18 03:33 Assessment/Plan Assessment/Plan Acute GIB - Probably upper -Surgery consulted -Protonix BID 40mg -IVF 125cc/hr -H&H Q6 Anemia s/p 2 units PRBC -Monitor Left sided rib fractures s/p fall 2 mo ago -IS -Fall risk Pulmonary infiltrate -Monitor for now Small left pleural effusion -Monitor ARJUN MEADE DO Nov 03, 2018 05:04
[2018-11-03] MEDS ORDERED: POTASSIUM CL 10MEQ/50ML IVPB 50 ML IV SCH (06:00)
[2018-11-03] MEDS ORDERED: KCL 20 MEQ TAB (K-DUR) PO SCH (06:00)
[2018-11-03] MEDS ORDERED: MAGNESIUM 1 GM/100 ML IVPB 100 ML IV SCH (06:00)
[2018-11-03 06:18] LABS: HEMOGLOBIN 9.8 G/DL (11.5-16.0)
--- NOTE | 2018-11-03 07:04 | Diagnostic Imaging Report ---
Portable erect AP chest at 329 hours. INDICATION: GI bleeding. FINDINGS: The heart is borderline enlarged but stable when compared to 10/03/2018. The atelectasis/infiltrate and fluid involving the left lung base seen on the prior study has essentially resolved. The vague area of increased density has developed in the left midlung, however. This finding may in part be due to healing callus formation secondary to the rib fractures in this area. It would be less likely if there is an element of pneumonia/atelectasis, but clinical followup is recommended. The left apex and right lung are generally clear. The mediastinum is not widened. The osseous structures are intact. The orthopedic hardware overlying the cervicothoracic junction seen previously is again evident and no different. IMPRESSION: 1. The vague area of increased density in left midlung may be secondary to healing callus formation alone. The possibility that there is an element of mild pneumonia/atelectasis in this area should still be considered. Clinical followup is recommended. 2. There is no acute cardiopulmonary abnormality noted otherwise. Dictated by: Dictated on workstation # [id number]
[2018-11-03] MEDS: PANTOPRAZOLE 40 MG (PROTONIX) VIAL IV SCH ×2 (08:12→21:50)
[2018-11-03] MEDS: RT-ALBUTEROL SULF 2.5 MG/3 ML PRE-MIX VIAL INH PRN (08:41)
[2018-11-03] MEDS ORDERED: RANI150T11 PO (09:28)
[2018-11-03] MEDS ORDERED: ACET-2650 PO (09:28)
[2018-11-03] MEDS ORDERED: FOLI1TAB24 PO (09:28)
[2018-11-03] MEDS ORDERED: TRAM50TA2 PO (09:28)
[2018-11-03] MEDS ORDERED: CHOL10007 PO (09:28)
[2018-11-03] MEDS ORDERED: ATEN25TA PO (09:28)
[2018-11-03] MEDS ORDERED: CALC-654 PO (09:28)
[2018-11-03] MEDS ORDERED: MULT1TAB69 PO (09:28)
[2018-11-03] MEDS ORDERED: METH2.5T PO (09:28)
--- NOTE | 2018-11-03 09:30 | NUR ---
SPOKE WITH THE PATIENT ABOUT HER MEDICATIONS, WE WENT OVER THE EXT MED HX AND SHE VERIFIED HOW SHE TAKES THEM. SHE TAKES THE FOLLOWING OTC: 2 CALCIUM DAILY 2 VITAMIN D DAILY MTV DAILY TYLENOL ARTHRITIS PRN
--- NOTE | 2018-11-03 09:37 | History & Physical-Hospitalist ---
History of Present Illness HPI/Chief Complaint CC: GI Bleed HPI: This is a 78-year-old white female who sees Dr. Ruggiero who presented to the [place] ER with hematemesis and melena and hematochezia. She was not maintained on any blood thinners anticoagulation studies were normal and had never had a GI bleed before. Repeat hemoglobin was 5.8 patient was given 2 units of packed red blood cells and Dr. Bautista was consulted. Patient had no significant decompensation during the hospital stay in the ICU or she was admitted to due to severe GI bleed. Dr. Lozada was consulted. She will have EGD and colonoscopy tomorrow by Dr. Bautista. [place] but now I hear she's from [facility] in [place] where she was on skilled care so unsure if she is confused or just a temporary stay at [facility] but I would assume she would've told me she was from a [facility] where she lives currently. Source: patient Exam Limitations: no limitations Date Seen 11/03/18 Time Seen by a Provider: 10:30 Attending Physician Charito Suárez DO PCP Jw Ruggiero MD Referring Physician Date of Admission Nov 02, 2018 at 17:05 Home Medications & Allergies Home Medications Reviewed patient Home Medication Reconciliation performed by pharmacy medication reconciliations biometrics technician and/or nursing. Patients Allergies have been reviewed. Allergies Allergies Uncoded Allergies UNKNOWN BLADDER MED ( Allergy, Unknown, 10/03/18) none ( Adverse Reaction, Unknown, 08/20/14) Past Bteojcs-Udyrzb-Omzaqp Hx Past Med/Social Hx: Reviewed Nursing Past Med/Soc Hx, Reviewed and Corrections made Patient Social History Marrital Status: Employed/Student: retired Alcohol Use: Denies Use Recreational Drug Use: No Smoking Status: Never a Smoker 2nd Hand Smoke Exposure: No Physical Abuse Screen: No Sexual Abuse: No Recent Foreign Travel: No Contact w/other who traveled: No Recent Hopitalizations: No Recent Infectious Disease Expo: No Immunizations Up To Date Tetanus Booster (TDap): More than 5yrs Pediatric: No Date of Pneumonia Vaccine: Aug 20, 2013 Date of Influenza Vaccine: Apr 19, 2014 Seasonal Allergies Seasonal Allergies: No Past Medical History Surgeries: Joint Replacement Neurological: Dementia Reproductive: No Sexually Transmitted Disease: No HIV/AIDS: No Female Reproductive Disorders: Denies Genitourinary: UTI-Chronic Gastrointestinal: Gastroesophageal Reflux, Gastrointestinal Bleed Musculoskeletal: Rheumatoid Arthritis Endocrine: Diabetes, Non-Insulin dep HEENT: Cataract Loss of Vision: Denies Hearing Impairment: Denies History of Blood Disorders: No Adverse Reaction to Blood Ware: No Family History Patient reports no known family medical history. Review of Systems Constitutional: see HPI, malaise EENTM: no symptoms reported Respiratory: no symptoms reported Cardiovascular: no symptoms reported Gastrointestinal: diarrhea, heartburn, melena Genitourinary: no symptoms reported Musculoskeletal: no symptoms reported Skin: no symptoms reported Psychiatric/Neurological: No Symptoms Reported All Other Systems Reviewed Negative Unless Noted: Yes Physical Exam Physical Exam Vital Signs Vital Signs - First Documented 11/02/18 11/02/18 15:56 19:31 Temp 98.3 Pulse 95 Resp 35 B/P (MAP) 121/81 (94) Pulse Ox 96 O2 Delivery Room Air FiO2 21 Capillary Refill : Less Than 3 Seconds Height, Weight, BMI Height: 5'2.00" Weight: 122lbs. 14.0oz. 55.579135md; 22.3 BMI Method:Actual General Appearance: No Apparent Distress, WD/WN, Chronically ill, Thin Eyes: Right Eye Normal Inspection, Right Eye PERRL HEENT: PERRL/EOMI, Normal ENT Inspection, Pharynx Normal, Moist Mucous Membranes Neck: Full Range of Motion, Normal Inspection, Non Tender Respiratory: Chest Non Tender, Lungs Clear, Normal Breath Sounds, No Accessory Muscle Use, No Respiratory Distress Cardiovascular: Regular Rate, Rhythm, No Edema, No Gallop, No JVD, No Murmur, Normal Peripheral Pulses Gastrointestinal: Normal Bowel Sounds, No Organomegaly, No Pulsatile Mass, Non Tender, Soft Back: Normal Inspection, No CVA Tenderness, No Vertebral Tenderness Extremity: Normal Capillary Refill, Normal Inspection, Normal Range of Motion, Non Tender, No Calf Tenderness, No Pedal Edema Neurologic/Psychiatric: Alert, Oriented x3, No Motor/Sensory Deficits, Normal Mood/Affect, Disoriented (???) Skin: Normal Color, Warm/Dry Lymphatic: No Adenopathy Results Results/Procedures Labs Laboratory Tests 11/02/18 15:58 11/02/18 19:10 11/03/18 03:33 11/03/18 06:09 Patient resulted labs reviewed. Assessment/Plan Admission Diagnosis Assessment: Acute GI bleed GERD Dementia Plan: Monitor hemoglobin Transfer to fourth floor EGD and colonoscopy Dr. Bautista tomorrow [facility] Admission Status: Inpatient Order (span 2 midnights) Reason for Inpatient Admission: GI bleed will require endoscopy and transfusions Diagnosis/Problems Diagnosis/Problems (1) Anemia due to acute blood loss Status: Acute (2) GERD (gastroesophageal reflux disease) Status: Chronic Qualifiers: Esophagitis presence: without esophagitis Qualified Codes: K21.9 - Gastro- esophageal reflux disease without esophagitis (3) Dementia Status: Chronic Qualifiers: Dementia type: Alzheimer's disease Alzheimer's disease onset: unspecified onset Dementia behavioral disturbance: without behavioral disturbance Qualified Codes: G30.9 - Alzheimer's disease, unspecified; F02.80 - Dementia in other diseases classified elsewhere without behavioral disturbance (4) Acute GI bleeding Status: Acute (5) Weakness Status: Acute (6) Transfusion of blood during current hospitalization Status: Acute Clinical Quality Measures DVT/VTE Risk/Contraindication: Risk Factor Score Per Nursin RFS Level Per Nursing on Admit: 4+=Very High Contraindications-Pharm: Other *list below* Other: gi bleed CHARITO SUÁREZ DO Nov 03, 2018 09:37
[2018-11-03] MEDS ORDERED: ACETAMINOPHEN 325 MG TABLET PO PRN (10:30)
[2018-11-03] MEDS: FAMOTIDINE 20 MG (PEPCID) TABLET PO SCH (11:48)
[2018-11-03] MEDS: ONDANSETRON 4 MG/2 ML (SDV) Z0FRAN IVP PRN (12:54)
[2018-11-03 13:10] LABS: HEMOGLOBIN 7.9 G/DL (11.5-16.0)
--- NOTE | 2018-11-03 14:21 | Physical Therapy Evaluation ---
PT Evaluation-General Medical Diagnosis Admission Date Nov 02, 2018 at 17:05 Medical Diagnosis: GI bleed Onset Date: Nov 03, 2018 Therapy Diagnosis Therapy Diagnosis: weakness Height/Weight Height (Feet): 5 Height (Inches): 2.00 Weight (Pounds): 122 Weight (Ounces): 14.0 Precautions Precautions/Isolations: Fall Prevention, Standard Precautions Referral Physician: Tamara Reason for Referral: Evaluation/Treatment Medical History Pertinent Medical History: DM, Dementia, GERD Additional Medical History dementia, RA Current History Admitted to hospital with acute GI bleed. Reviewed History: Yes Social History Home: Jail Prior/Core FIM Prior Level of Function Therapy Code Descriptions/Definitions Functional Cuming Measure: 0=Not Assessed/NA 4=Minimal Assistance 1=Total Assistance 5=Supervision or Setup 2=Maximal Assistance 6=Modified Cuming 3=Moderate Assistance 7=Complete Cuming Therapy Quality Codes: 6 Independent with activity with or without an assistive device 5 Patient requires set up or clean up by helper. Patient completes activity by themselves 4 Supervision or touching assist (CGA). Moody provide cues , steadying assist 3 The helper provides less than half the effort to complete the activity 2 The helper provides more than half the effort to complete the activity 1 Dependent. The helper does all the effort to complete an activity 7 Patient refused to complete or attempt activity 9 The patient did not perform the activity before the current illness or injury 88 Not attempted due to Medical conditions or safety concerns Functional Abilities and Goals: Independent: Patient completed the activities by him/herself, with or without an assistive device, with no assistance from a helper. Needed Some Help: Patient needed partial assistance from another person to complete activities. Dependent: A helper completed the activities for the patient. Unknown: Not Applicable: Pt reprorts she was able to walk with a FWW; unsure of the specifics of her mobility; she was newly admitted to [facility]. PT Evaluation-Current Subjective Reports she does not feel well. Requests to toilet. Objective Patient Orientation: Person, Situation Problem Solving: Fair ROM/Strength ROM Lower Extremities WFL Strenght Lower Extremities WFL Integumentary/Posture Integumentary refer to nursing notes. Bowel Incontinence: No Bladder Incontinence: Griffith Cath Posture symmetrical Neuromuscular (Tone, Coordination, Reflexes) intact Sensory Vision: Functional Hearing: Functional Hand Dominance: Right Sensation Right Lower Extremit: Intact Sensation Left Lower Extremity: Intact Transfers Therapy Code Descriptions/Definitions Functional Cuming Measure: 0=Not Assessed/NA 4=Minimal Assistance 1=Total Assistance 5=Supervision or Setup 2=Maximal Assistance 6=Modified Cuming 3=Moderate Assistance 7=Complete Cuming Therapy Quality Codes: 6 Independent with activity with or without an assistive device 5 Patient requires set up or clean up by helper. Patient completes activity by themselves 4 Supervision or touching assist (CGA). Moody provide cues , steadying assist 3 The helper provides less than half the effort to complete the activity 2 The helper provides more than half the effort to complete the activity 1 Dependent. The helper does all the effort to complete an activity 7 Patient refused to complete or attempt activity 9 The patient did not perform the activity before the current illness or injury 88 Not attempted due to Medical conditions or safety concerns Transfers (B, C, W/C) (FIM): 3 Supine to/from Sit: 3 Sit to Stand (QC): 4 Chair/Glw-ld-Bvhjc Xfer(QC): 4 Pt able to take steps with FWW to transfer to the toilet. had large BM and became ill with vomiting. Cared for needs and cleaned pt. Pt back to bed post treatment with needs met. Treatment Transfers on/off the toilet; sit to stand transfers . Assessment/Needs Pt presents with acute GI bleed with functional weakness. She will beneift from skilled PT to address functional mobility to improve strength and mobility. Rehab Potential: Fair PT Correction Goals [employer] Specialist Goals PT Correction Goals Time Frame: Nov 10, 2018 Transfers (B,C,W/C) (FIM): 5 Gait (FIM): 4 PT Plan Problem List Problem List: Activity Tolerance, Functional Strength, Safety, Balance, Gait, Transfer, Bed Mobility Treatment/Plan Treatment Plan: Continue Plan of Care Treatment Plan: Bed Mobility, Education, Functional Activity Ralph, Functional Strength, Gait, Safety, Therapeutic Exercise, Transfers Treatment Duration: Nov 10, 2018 Frequency: 6 times per week Estimated Hrs Per Day: .25 hour per day Patient and/or Family Agrees t: Yes Safety Risks/Education Patient Education: Safety Issues Teaching Recipient: Patient Teaching Methods: Discussion Response to Teaching: Reinforcement Needed Time/GCodes Time In: 1330 Time Out: 1400 Total Billed Treatment Time: 30 Total Billed Treatment visit EVM 15 FA 15 SALLY CENTENO PT Nov 03, 2018 14:21
--- NOTE | 2018-11-03 14:43 | Occupational Therapy Eval ---
OT Evaluation-General/PLF Medical Diagnosis Admission Date Nov 02, 2018 at 17:05 Medical Diagnosis: GI bleed Onset Date: Nov 03, 2018 Therapy Diagnosis Therapy Diagnosis: impaired ADLS and mobility, weakness Height/Weight Height (Feet): 5 Height (Inches): 2.00 Weight (Pounds): 122 Weight (Ounces): 14.0 Precautions Precautions/Isolations: Fall Prevention, Standard Precautions Safety Interventions: None Weight Bear Status Weight Bearing Restriction: Full Weight Bearing Referral Physician: Tamara Referral Reason: Activity Tolerance, Evaluation/Treatment, Strengthening/ROM Medical History Pertinent Medical History: DM, Dementia, GERD Current History This is a 78-year-old white female who sees Dr. Ruggiero who presented to the [place] [facility] with hematemesis and melena and hematochezia. She was not maintained on any blood thinners anticoagulation studies were normal and had never had a GI bleed before. Repeat hemoglobin was 5.8 patient was given 2 units of packed red blood cells and Dr. Bautista was consulted. Patient had no significant decompensation during the hospital stay in the ICU or she was admitted to due to severe GI bleed. Dr. Lozada was consulted. She will have EGD and colonoscopy tomorrow by Dr. Bautista. [place] but now I hear she's from [facility] in [place] where she was on skilled care so unsure if she is confused or just a temporary stay at [facility] but I would assume she would've told me she was from a senior care where she lives currently. Reviewed History: Yes Social History Home: Single Level Current Living Status: Significant Other Entry Into Home: Stairs With Railing Steps Into Home: 5 pt stated she complete sponge baths PLOF ADL-Prior Level of Function Therapy Code Descriptions/Definitions Functional [place] Measure: 0=Not Assessed/NA 4=Minimal Assistance 1=Total Assistance 5=Supervision or Setup 2=Maximal Assistance 6=Modified [place] 3=Moderate Assistance 7=Complete [place] Therapy Quality Codes: 6 Independent with activity with or without an assistive device 5 Patient requires set up or clean up by helper. Patient completes activity by themselves 4 Supervision or touching assist (CGA). [place] provide cues , steadying assist 3 The helper provides less than half the effort to complete the activity 2 The helper provides more than half the effort to complete the activity 1 Dependent. The helper does all the effort to complete an activity 7 Patient refused to complete or attempt activity 9 The patient did not perform the activity before the current illness or injury 88 Not attempted due to Medical conditions or safety concerns Functional Abilities and Goals: Independent: Patient completed the activities by him/herself, with or without an assistive device, with no assistance from a helper. Needed Some Help: Patient needed partial assistance from another person to complete activities. Dependent: A helper completed the activities for the patient. Unknown: Not Applicable: Self Care: Independent Functional Cognition: Independent Drive Self: No OT Current Status Subjective pt agreed to OT evaluation session. pt stated she has been nauseous all day with emesis. Pain Numeric Pain Scale: 0-No Pain Mental Status/Objective Patient Orientation: Normal For Age Attachments: Griffith Catheter, IV Current Glasses/Contacts: Yes Hearing Aids: No Dentures/Partials: No Hand Dominance: Left Upper Extremity ROM WFL Upper Extremity Coordination WFL Upper Extremity Sensation WFL Upper Extremity Strength WFL ADL-Treatment Therapy Code Descriptions/Definitions Functional [place] Measure: 0=Not Assessed/NA 4=Minimal Assistance 1=Total Assistance 5=Supervision or Setup 2=Maximal Assistance 6=Modified [place] 3=Moderate Assistance 7=Complete [place] Therapy Quality Codes: 6 Independent with activity with or without an assistive device 5 Patient requires set up or clean up by helper. Patient completes activity by themselves 4 Supervision or touching assist (CGA). [place] provide cues , steadying assist 3 The helper provides less than half the effort to complete the activity 2 The helper provides more than half the effort to complete the activity 1 Dependent. The helper does all the effort to complete an activity 7 Patient refused to complete or attempt activity 9 The patient did not perform the activity before the current illness or injury 88 Not attempted due to Medical conditions or safety concerns Grooming (FIM): 4 (CGA forsafety/ balance) Toileting (FIM): 1 (DEp this date secondary to increase nausua when performing task. ) Transfers (B, C, W/C) (FIM): 4 (cga) Education OT Patient Education: Progress toward Goal/Update tx plan, Purpose of tx/ functional activities Teaching Recipient: Patient Teaching Methods: Discussion Response to Teaching: Verbalize Understanding OT Short Term Goals Short Term Goals Grooming(FIM): 7 Bathing(FIM): 4 Lower Body Dressing(FIM): 5 Toileting(FIM): 5 Transfers (B,C,W/C) (FIM): 5 Toilet/Commode Transfer(FIM): 5 1=Demonstrate adherence to instructed precautions during ADL tasks. 2=Patient will verbalize/demonstrate understanding of assistive devices/ modifications for ADL. 3=Patient will improve strength/tolerance for activity to enable patient to perform ADL's. OT Day Treatment Clinician/Art Therapist Goals Assisted Goals Bathing(FIM): 6 Lower Body Dressing(FIM): 6 Toileting(FIM): 6 Transfers (B,C,W/C) (FIM): 6 Toilet/Commode Transfer(FIM): 6 1=Demonstrate adherence to instructed precautions during ADL tasks. 2=Patient will verbalize/demonstrate understanding of assistive devices/ modifications for ADL. 3=Patient will improve strength/tolerance for activity to enable patient to perform ADL's. OT Education/Plan Problem List/Assessment Assessment: Decreased Activ Tolerance, Impaired Funct Balance, Impaired I ADL's , Impaired Self-Care Skills 78 year old female presents to OT services with dx of "GI bleed". chart review completed. pt presents with functional limitations affecting areas of ADLs and functional transfers with deficits in: decrease activity tolerance/ endurance, increase nausea with movement, decrease dyn standing balance, ADLs, and decrease safety with functional tasks in sitting and standing. pt would benefit from OT services to increase independence with ADLS and functional transfers and to address above mention deficits. Discharge Recommendations Plan/Recommendations: Continue POC Patient/Family Goals "to be able to do things for myself" Treatment Plan/Plan of Care Treatment,Training & Education: Yes Patient would benefit from OT for education, treatment and training to promote independence in ADL's, mobility, safety and/or upper extremity function for ADL' s. Plan of Care: ADL Retraining, Functional Mobility, Group Exercise/Act as Ind, UE Funct Exercise/Act Treatment Duration: Nov 10, 2018 Frequency: 5 times per week Estimated Hrs Per Day: .25 hour per day Rehab Potential: Fair Time/GCodes Start Time: 14:24 Stop Time: 14:40 Billed Treatment Time EVM 16 minutes ANGELY CHOUDHURY OT Nov 03, 2018 14:43
[2018-11-03] MEDS ORDERED: MAGNESIUM CITRATE 300 ML BTL PO NR (15:30)
--- NOTE | 2018-11-03 15:34 | Progress Note-Pre Operative ---
Pre-Operative Progress Note H&P Reviewed The H&P was reviewed, patient examined and no changes noted. Date Seen by Provider: Nov 03, 2018 Time Seen by Provider: 15:30 Date H&P Reviewed: Nov 03, 2018 Time H&P Reviewed: 15:25 Pre-Operative Diagnosis: Acute GI bleed JAGRUTI DILLARD GROUND LAYER Nov 03, 2018 15:34
[2018-11-03] MEDS ORDERED: NS IV 500 ML 500 ML IV SCH (16:16)
--- NOTE | 2018-11-03 16:16 | NUR ---
This RN called to room by Vijayprosthetic aides teacher. Dr. Bautista hears this RN be called into room and follows this RN into room. Patient is on bedside commode and Vijay and Angelica, [facility] state that patient had bowel movement with tory red blood and clots. Patient is tachy with pulse in the 120s and tachypneic with RR at 28 o2 is 85%. RT, Ruiz called and he starts patient on o2 at 4L per nasal cannula. Patient also appears pale and weak. Dr. Bautista verbally orders for this nurse to get a stat H&H and to give a 1L bolus of normal saline. Dr. Bautista also states to go ahead and order and transfuse 2 units of PRBcs. Will carry out orders and continue to monitor.
--- NOTE | 2018-11-03 16:31 | Conscious Sedation/ASA ---
Conscious Sedation Pre-Proced Time 15:25 ASA Score 3 For ASA 3 and 4: Consider anesthesia and medical clearance. Also, for patients with a history of failed moderate sedation consider anesthesia. Airway Lungs Heart ASA score ASA 1: a normal healthy patient ASA 2: a patient with a mild systemic disease (mid diabetes, controlled hypertension, obesity ASA 3: a patient with a severe systemic disease that limits activity (angina , COPD, prior Myocardial infarction) ASA 4: a patient with an incapacitating disease that is a constant threat to life (CHF, renal failure) ASA 5: a moribund patient not expected to survive 24 hrs. (ruptured aneurysm) ASA 6: a declared brain- patient whose organs are being harvested. For emergent operations, add the letter E after the classification Mallampati Classification Grade 2 Sedation Plan Analgesia, Amnesia, Plan communicated to team members, Discussed options with patient/fam, Discussed risks with patient/fam The patient is an appropriate candidate to undergo the planned procedure, sedation, and anesthesia. The patient immediately re-assessed prior to indication. PJ BHATT MD Nov 03, 2018 16:31
[2018-11-03 16:41] LABS: HEMOGLOBIN 6.8 G/DL (11.5-16.0)
--- NOTE | 2018-11-03 17:45 | NUR ---
Patient is now resting in bed with her eyes closed and vitals are stable BP-119/65 pulse-112, o2 at 100% on 7L per high flow NC. RR-22. temp-98.3 Will continue to monitor.
[2018-11-03] MEDS: ATENOLOL 25 MG (TENORMIN) TAB PO SCH (21:51)
[2018-11-04] VITALS (26 sets, daily range): BP systolic 82–128; BP diastolic 42–90
[2018-11-04 01:18] LABS: HEMOGLOBIN 9.3 G/DL (11.5-16.0)
[2018-11-04] MEDS: NS IV 1000 ML 1,000 ML IV SCH ×2 (02:25→13:57)
[2018-11-04] MEDS: fentaNYL INJECTION 100 MCG/2 ML AMP IVP PRN ×5 (02:26→23:59)
[2018-11-04 04:44] LABS: BASOPHILS % (AUTO) 0 % (0-10); EOSINOPHILS # (AUTO) 0.1 10^3/uL (0.0-0.3); EOSINOPHILS % (AUTO) 1 % (0-10); HEMATOCRIT 22 % (35-52); HEMOGLOBIN 7.1 G/DL (11.5-16.0); LYMPHOCYTES # (AUTO) 2.2 X 10^3 (1.0-4.0); LYMPHOCYTES % (AUTO) 11 % (12-44); MEAN CORPUSCULAR HEMOGLOBIN 29 PG (25-34); MEAN CORPUSCULAR HGB CONC 32 G/DL (32-36); MEAN CORPUSCULAR VOLUME 90 FL (80-99); MEAN PLATELET VOLUME 9.1 FL (7.4-10.4); MONOCYTES # (AUTO) 1.4 X 10^3 (0.0-1.0); MONOCYTES % (AUTO) 7 % (0-12); NEUTROPHILS # (AUTO) 16.3 X 10^3 (1.8-7.8); NEUTROPHILS % (AUTO) 81 % (42-75); PLATELET COUNT 212 10^3/uL (130-400); RED CELL DISTRIBUTION WIDTH 17.4 % (10.0-14.5)
[2018-11-04 05:02] LABS: BUN/CREATININE RATIO 57; CALCIUM 7.4 MG/DL (8.5-10.1); CARBON DIOXIDE 22 MMOL/L (21-32); CHLORIDE 119 MMOL/L (98-107); CREATININE SERUM 0.51 MG/DL (0.60-1.30); GFR ESTIMATED > 60; GLUCOSE 89 MG/DL (70-105); POTASSIUM 4.5 MMOL/L (3.6-5.0); SODIUM 146 MMOL/L (135-145)
--- NOTE | 2018-11-04 05:04 | NUR ---
PATIENT HAS HAD 6 300ML+ BLOODY STOOLS WITH CLOTS. BP IS AT 90/57 HGB AT MIDNIGHT WAS 9.3, AT [address] LLAMAS REGARDING PATIENT CONDITION. ORDER TO CHANGE FLUIDS TO 200ML/HR AND MONITOR BP.
[2018-11-04] MEDS ORDERED: NS IV 1000 ML 1,000 ML IV SCH (05:07)
[2018-11-04 05:11] LABS: ANISOCYTOSIS SLIGHT; BAND NEUTROPHILS 2 %; LYMPHOCYTES % (MANUAL) 6 %; MONOCYTES % (MANUAL) 5 %; NEUTROPHILS % (MANUAL) 87 %; NUCLEATED RED BLOOD CELLS 1; POLYCHROMASIA SLIGHT
[2018-11-04] MEDS: inSUlin ASPART (NovoLOG) 1 UNIT/0.01 ML (CHARGE PER UNIT) SC SCH ×4 (05:34→21:09)
--- NOTE | 2018-11-04 06:08 | Pulmonary Progress Note ---
Subjective Time Seen by a Provider: 06:07 Subjective/Events-last exam Pt is having multiple BRBPR stools. Sepsis Event Evaluation Height, Weight, BMI Height: 5'2.00" Weight: 122lbs. 14.0oz. [id number]; 22.3 BMI Method:Actual Exam Exam Vital Signs Date Time Temp Pulse Resp B/P (MAP) Pulse Ox O2 Delivery O2 Flow Rate FiO2 11/04/18 02:23 99 High Flow N/C 3.00 11/04/18 00:15 98.7 86 22 106/64 (78) 99 High Flow N/C 4.00 11/03/18 22:41 97.6 99 20 120/77 99 High Flow N/C 6.00 11/03/18 22:05 97 High Flow N/C 4.00 11/03/18 21:00 99 High Flow N/C 6.00 11/03/18 20:15 98.6 117 20 127/72 99 High Flow N/C 6.00 11/03/18 19:58 98.3 11/03/18 19:50 111 20 113/69 100 High Flow N/C 6.00 11/03/18 19:34 100 High Flow N/C 6.00 11/03/18 19:19 98.3 112 22 111/80 100 Nasal Cannula 6.00 11/03/18 19:05 98.3 112 24 111/80 (90) 100 High Flow N/C 7.00 11/03/18 17:30 98.3 121 24 119/65 (83) 100 High Flow N/C 10.00 11/03/18 17:23 98.3 121 22 110/71 100 OxyMask 10.00 11/03/18 16:59 98.2 120 26 124/79 94 OxyMask 10.00 11/03/18 16:40 98.2 67 28 124/79 (94) 94 OxyMask 10.00 11/03/18 12:30 Room Air 11/03/18 12:30 98.9 115 22 113/78 (90) 97 Room Air 11/03/18 11:00 93 21 137/97 (110) 100 Room Air 11/03/18 10:00 104 26 116/62 (80) 97 Room Air 11/03/18 09:00 109 26 130/63 (85) 96 Room Air 11/03/18 08:41 98 Room Air 11/03/18 08:00 96 20 143/70 (94) 97 Room Air 11/03/18 07:00 86 28 110/56 (74) 94 Room Air 11/03/18 07:00 87 11/03/18 07:00 Room Air I & O 11/04/18 07:00 Intake Total 2090 ml Output Total 1050 ml Balance 1040 ml Height & Weight Height: 5'2.00" Weight: 122lbs. 14.0oz. 55.146227vy; 22.3 BMI Method:Actual General Appearance: No Apparent Distress, WD/WN, Chronically ill, Thin HEENT: PERRL/EOMI, Normal ENT Inspection, Pharynx Normal, Moist Mucous Membranes Neck: Full Range of Motion, Normal Inspection, Non Tender Respiratory: Chest Non Tender, Lungs Clear, Normal Breath Sounds, No Accessory Muscle Use, No Respiratory Distress Cardiovascular: Regular Rate, Rhythm, No Edema, No Gallop, No JVD, No Murmur, Normal Peripheral Pulses Capillary Refill: Less Than 3 Seconds Gastrointestinal: normal bowel sounds, non tender, soft, no organomegaly, no pulsatile mass Extremity: Normal Capillary Refill, Normal Inspection, Normal Range of Motion, Non Tender, No Calf Tenderness, No Pedal Edema Neurologic/Psychiatric: Alert, Oriented x3, No Motor/Sensory Deficits, Normal Mood/Affect, Disoriented (???) Skin: Normal Color, Warm/Dry Lymphatic: No Adenopathy Results Lab Laboratory Tests 11/02/18 15:58 11/02/18 19:10 11/03/18 03:33 11/03/18 06:09 11/03/18 13:00 11/03/18 16:22 11/04/18 01:05 11/04/18 04:33 Assessment/Plan Assessment/Plan Acute GIB - -PT had BRBPR last night -Surgery following -Protonix BID 40mg -IVF 125cc/hr -H&H Q6 Anemia s/p 2 units PRBC -Monitor Left sided rib fractures s/p fall 2 mo ago -IS -Fall risk Pulmonary infiltrate -Monitor for now Small left pleural effusion -Monitor Pt is going to need 2 more units of PRBC and transfer to ICU. Dr. Bautista is consulted. Will move to ICU. Pt is scheduled for EGD today. UPDATE: pt has progressive hypotension PRBC is transfusing. Dr. Bautista at bedside placing central line. EGD is pending. Time spent with patient is 60min ARJUN MEADE DO Nov 04, 2018 06:08
[2018-11-04] MEDS: FOLIC ACID 1 MG TAB PO SCH (08:45)
[2018-11-04] MEDS: MULTIVIT W/MINERALS TAB (THERAGRAN M) PO SCH (08:45)
[2018-11-04] MEDS: VITAMIN D3 1,000 UNITS (CHOLECALCIFEROL) TABLET PO SCH (08:45)
[2018-11-04] MEDS: CALCIUM CARB + VIT D 600 MG (CALCARB + D) TAB PO SCH (08:45)
--- NOTE | 2018-11-04 08:49 | Physical Therapy Progress Note ---
Therapy Progress Note LOGGING TRACTOR OPERATOR SWAMP attempted treatment but pt declines reporting will be transferring to ICU soon. Nursing confirms this, siding increase GI bleed. 1, no treatment rendered PIERRE MOYER LOGGING TRACTOR OPERATOR SWAMP Nov 04, 2018 08:49
[2018-11-04] MEDS: FAMOTIDINE 20 MG (PEPCID) TABLET PO SCH (08:58)
[2018-11-04] MEDS: ONDANSETRON 4 MG/2 ML (SDV) Z0FRAN IVP PRN (09:03)
[2018-11-04] MEDS: PANTOPRAZOLE 40 MG (PROTONIX) VIAL IV SCH (09:03)
[2018-11-04] MEDS: LORazepam INJ 2 MG/ML (ATIVAN) VIAL IVP PRN (09:15)
--- NOTE | 2018-11-04 09:20 | NUR ---
NOTIFIED DR. BHATT AT THIS TIME THAT PATIENT IS HAVING INCREASED WORK OF BREATHING WITH RR AT 28 BREATHS/MIN. THIS RN STATES THAT ATIVAN 1MG IV WAS GIVEN AT 0915 PER EMR ORDERS R/T PATIENT ANXIOUSNESS AND PATIENT STATING SHE FELT LIKE SHE COULDN'T BREATHE HOWEVER SATS WERE STABLE IN THE MID 90S ON O2 HIGH FLOW NC AT 6L. THIS RN INFORMS THAT THE SOA INCREASED ONCE PATIENT HAD A BOWEL MOVEMENT THAT HAD EDIS BLOOD THAT WAS DARK RED IN COLOR. THIS RN ALSO INFORMED DR. BHATT THAT THERE ARE ORDERS FROM DR. MEADE TO TRANSFER PATIENT TO THE ICU. DR. BHATT ORDERS TO TRANSFUSE 1 UNIT PRBC. WILL GET PATIENT TO THE UNIT AND RETRIEVE BLOOD ONCE AVAILABLE.
--- NOTE | 2018-11-04 10:08 | Diagnostic Imaging Report ---
Indication: Dyspnea. Frontal chest obtained at 349 hours a.m., is compared to yesterday. There is cardiomegaly. Aorta is tortuous. There is no focal infiltrate or pneumothorax or pleural fluid. There are old left-sided rib fractures. There is a mild right basilar atelectasis. Impression: Cardiomegaly with tortuous aorta. Mild right basilar atelectasis. No overt consolidation or pleural fluid. Dictated by: Dictated on workstation # [id number]
[2018-11-04] MEDS ORDERED: NS (IVPB) 250 ML ONE (10:26)
[2018-11-04] MEDS ORDERED: NOREPINEPHRINE 4 MG/4 ML (LEVOPHED) AMP IV ONE (10:26)
--- NOTE | 2018-11-04 11:15 | NUR ---
Pt intubated by bedside, shared of pts illness history and his concerns. I offered support, prayer and encouragement.
--- NOTE | 2018-11-04 11:24 | Diagnostic Imaging Report ---
INDICATION: Line placement. Frontal chest obtained at 11:01 a.m. and is compared to 03:49 a.m. the same day. FINDINGS: There is a new left subclavian central catheter tip overlying the upper SVC. There is no pneumothorax. Cardiomegaly is again noted with unchanged right basilar atelectatic change. There is no new abnormality otherwise seen. IMPRESSION: Compared to the prior study earlier today, there is a new left subclavian central line with tip overlying the upper SVC. There is no pneumothorax or pleural fluid following line placement. Dictated by: Dictated on workstation # [id number]
--- NOTE | 2018-11-04 11:38 | Consultation-Cardiology ---
HPI-Cardiology Cardiology Consultation: Date of Consultation 11/04/18 Date of Admission Attending Physician Charito Mcdonald DO Admitting Physician Jw Ruggiero MD Consulting Physician Yan THRASHER MD HPI: Time Seen by a Provider: 11:00 Chief Complaint: Shortness of breath This is a 78-year-old lady who was seen in [facility] with hematemesis, melena and hematochezia. She had significantly low hemoglobin. She was given 2 units of PRBCs and transferred to the hospital. However she decompensated and started to have significant shortness of breath and was placed on BiPAP. Pulmonology is involved. Cardiology is consulted for severe shortness of breath. Review of Systems-Cardiology Review of Systems Constitutional: As described under HPI; No As described under HPI, No no symptoms reported, No chills, No fever, No lightheadedness Eyes: No As described under HPI, No no symptoms reported, No blindness, No blurred vision, No contact lenses, No drainage, No decreased acuity, No foreign body sensation, No pain, No vision change Ears/Nose/Throat: No As described under HPI, No no symptoms reported, No chronic hearing loss, No ear discharge, No ear pain, No nasal drainage, No ulcerations Respiratory: No no symptoms reported; As described under HPI; No As described under HPI, No cough; orthopnea; No shortness of breath, No SOB with excertion Cardiovascular: No no symptoms reported; As described under HPI; No As described under HPI, No chest pain, No edema, No irregular heart rate, No lightheadedness, No palpitations Gastrointestinal: No no symptoms reported; As described under HPI; No abdomen distended, No abdominal pain, No blood streaked bowels, No constipation, No diarrhea, No nausea, No vomiting, No stool coloration changes Genitourinary: No As described under HPI, No burning, No dysuria, No discharge , No frequency, No flank pain, No hematuria, No urgency : Yes : No Skin: No rash, No skin related problems, No ulcerations Psychiatric/Neurological: No anxiety, No depression, No seizure, No focal weakness, No syncope Hematologic: No bleeding abnormalities All Other Systems Reviewed Negative Unless Noted: Yes [id number] Hx Patient Social History Marrital Status: Employed/Student: retired Alcohol Use: Denies Use Recreational Drug Use: No Smoking Status: Never a Smoker 2nd Hand Smoke Exposure: No Recent Foreign Travel: No Recent Infectious Disease Expo: No Hospitalization with Isolation: Denies Physical Abuse Screen: No Sexual Abuse: No Immunizations Up To Date Tetanus Booster (TDap): More than 5yrs Date of Pneumonia Vaccine: Aug 20, 2013 Date of Influenza Vaccine: Apr 19, 2014 Past Medical History PMH As described under Assessment. Family Medical History Family History: Patient reports no known family medical history. Allergies and Home Medications Allergies Uncoded Allergies: UNKNOWN BLADDER MED (Allergy, Unknown, 10/03/18) none (Adverse Reaction, Unknown, 08/20/14) Home Medications Acetaminophen 650 Mg Tablet.er, 650 MG PO Q6H PRN for PAIN-MILD, (Reported) Atenolol 25 Mg Tablet, 25 MG PO HS, (Reported) Calcium Carbonate/Vitamin D3 1 Each Tablet, 2 TAB PO DAILY, (Reported) Cholecalciferol (Vitamin D3) 1,000 Unit Capsule, 2 CAP PO DAILY, (Reported) Folic Acid 1 Mg Tablet, 1 MG PO DAILY, (Reported) Methotrexate Sodium 2.5 Mg Tablet, 15 MG PO Fr, (Reported) TAKES 6 (2.5MG) TABLETS Multivitamin 1 Each Tablet, 1 TAB PO DAILY, (Reported) Ranitidine HCl 150 Mg Tablet, 150 MG PO BID, (Reported) Tramadol HCl 50 Mg Tablet, 100 MG PO Q6H PRN for PAIN-MODERATE, (Reported) Patient Home Medication List Home Medication List Reviewed: Yes Physical Exam-Cardiology Physical Exam Vital Signs/I&O 11/05/18 11/05/18 11/05/18 11/05/18 02:00 03:00 04:00 04:00 Temp 97.5 Pulse 82 80 Resp 21 26 B/P (MAP) 104/57 (73) 107/55 (72) Pulse Ox 100 100 95 O2 Delivery High Flow N/C High Flow N/C High Flow N/C O2 Flow Rate 6.00 6.00 5.00 11/05/18 11/05/18 11/05/18 11/05/18 04:00 05:00 06:00 07:00 Pulse 83 93 86 93 Resp 29 22 33 23 B/P (MAP) 119/63 (81) 96/63 (74) 94/58 (70) 96/53 (67) Pulse Ox 100 100 100 100 O2 Delivery High Flow N/C High Flow N/C High Flow N/C High Flow N/C O2 Flow Rate 6.00 6.00 6.00 6.00 11/05/18 11/05/18 11/05/18 11/05/18 07:00 08:00 08:15 08:21 Pulse 96 98 Resp 26 B/P (MAP) 102/74 (83) Pulse Ox 99 95 100 O2 Delivery High Flow N/C High Flow N/C Nasal Cannula O2 Flow Rate 6.00 3.00 5.00 11/05/18 11/05/18 11/05/18 11/05/18 10:00 10:05 10:34 11:00 Temp 97.2 97.4 Pulse 93 95 96 105 Resp 26 28 35 B/P (MAP) 95/56 (69) 95/56 93/68 98/62 (74) Pulse Ox 100 O2 Delivery High Flow N/C High Flow N/C O2 Flow Rate 6.00 6.00 11/05/18 12:30 Pulse 95 Resp 16 Pulse Ox 100 FiO2 100 11/05/18 00:00 Intake Total 490 ml Output Total 450 ml Balance 40 ml Capillary Refill : Less Than 3 Seconds Constitutional: appears stated age, apparent distress, well-developed, well- nourished HEENT: PERRL; No normal ENT inspection, No TMs normal, No pharynx normal, No scleral icterus (R), No scleral icterus (L), No pale conjunctivae (R), No pale conjunctivae (L), No photophobia, No TM abnormal (R), No TM abnormal (L), No pharyngeal erythema, No tonsillar exudate, No other, No discharge, No EOMI; hearing is well preserved; No hard of hearing; oral hygience is good; No ulceration, No xanthelasmas are seen Neck: No carotid bruit; carotid pulses are 2 + bilaterally Respiratory: accessory muscle use, respiratory distress, rhonchi Cardiovascular: regular rate-rhythm; No irregularly irregular, No extra beats, No parasternal heave is noted, No JVD, No edema, No bradycardia, No tachycardia , No point of maximal impulse, No cardiac thrills are palpable; S1 and S2; No gallop/S3, No gallop/S4, No diastolic murmur, No systolic murmur, No friction rub, No click, No other Gastrointestinal: No tender; soft; No round, No distended, No pulsatile mass, No organomegaly, No guarding, No rebound, No tenderness, No hernia, No mass, No audible bowel sounds, No abnormal bowel sounds, No abdominal bruits, No spleenomegaly, No other Rectal: No normal exam, No heme negative stool; deferred; No decreased tone, No mass, No tenderness, No other Extremities: No normal range of motion, No non-tender, No normal inspection, No pedal edema, No calf tenderness, No normal capillary refill, No pelvis stable , No calf tenderness, No inflammation, No pedal edema, No slow capillary refill , No swelling, No other, No abrasion, No clubbing, No cyanosis, No ecchymosis, No laceration, No no lower extremity edema bilateral, No significant edema, No tenderness, No wound Neurologic/Psychiatric: alert, oriented x 3, power is 5/5 both on sides Skin: pallor; No rash, No ulcerations Data Review Labs Laboratory Tests 11/04/18 15:15: Hemoglobin 11.0#L, Hematocrit 32L 11/04/18 17:36: Glucometer 256H 11/04/18 21:05: Glucometer 192H 11/05/18 00:26: Hemoglobin 8.5#L, Hematocrit 26L 11/05/18 03:07: White Blood Count 13.1H, Red Blood Count 2.86L, Hemoglobin 8.4L, Hematocrit 25L , Mean Corpuscular Volume 88, Mean Corpuscular Hemoglobin 29, Mean Corpuscular Hemoglobin Concent 34, Red Cell Distribution Width 17.6H, Platelet Count 155, Mean Platelet Volume 9.8, Neutrophils (%) (Auto) 75, Lymphocytes (%) (Auto) 15, Monocytes (%) (Auto) 7, Eosinophils (%) (Auto) 2, Basophils (%) (Auto) 0, Neutrophils # (Auto) 9.9H, Lymphocytes # (Auto) 2.0, Monocytes # (Auto) 1.0, Eosinophils # (Auto) 0.3, Basophils # (Auto) 0.0, Sodium Level 148H, Potassium Level 4.4, Chloride Level 122H, Carbon Dioxide Level 21, Anion Gap 5, Blood Urea Nitrogen 30H, Creatinine 0.54L, Estimat Glomerular Filtration Rate > 60, BUN/Creatinine Ratio 56, Glucose Level 125H, Calcium Level 7.4L, Phosphorus Level 2.3, Magnesium Level 1.7L 11/05/18 11:57: White Blood Count 10.9, Red Blood Count 2.47L, Hemoglobin 7.3L, Hematocrit 22L, Mean Corpuscular Volume 91, Mean Corpuscular Hemoglobin 30, Mean Corpuscular Hemoglobin Concent 33, Red Cell Distribution Width 16.6H, Platelet Count 127L, Mean Platelet Volume 9.9, Neutrophils (%) (Auto) 82H, Lymphocytes (%) (Auto) 10L , Monocytes (%) (Auto) 7, Eosinophils (%) (Auto) 1, Basophils (%) (Auto) 0, Neutrophils # (Auto) 9.0H, Lymphocytes # (Auto) 1.0, Monocytes # (Auto) 0.8, Eosinophils # (Auto) 0.1, Basophils # (Auto) 0.0, Prothrombin Time 19.0H, INR Comment 1.5H, Activated Partial Thromboplast Time 34 Microbiology 11/02/18 MRSA Screen - Final, Complete MRSA not isolated ECG Impression ECG Initial ECG Rhythm: Normal Sinus A/P-Cardiology Assessment/Admission Diagnosis Severe GI bleeding, anemia, Severe respiratory failure Plan Severe GI bleeding, transfusion with PRBCs, will require upper and lower GI endoscopy. Severe respiratory failure - Pulmonary on board. Echocardiogram done 11/04/2018 shows normal LV function with mild to moderate LVH , moderate to severe pulmonary hypertension. Collapsed IVC suggesting significant volume depletion. Thank you for your consultation. Please call me if you have any questions. Belinda Thrasher MD, FACP, FACC, FSCAI, FHRS, CCDS Interventional Cardiology Cardiac Electrophysiology Vascular Medicine and Endovascular Interventions Clinical Quality Measures DVT/VTE Risk/Contraindication: Risk Factor Score Per Nursin RFS Level Per Nursing on Admit: 4+=Very High Contraindications-Pharm: Other *list below* Other: gi bleYan Saavedra MD Nov 04, 2018 11:38 am
--- NOTE | 2018-11-04 11:39 | Progress Note-Hospitalist ---
Subjective HPI/CC On Admission Date Seen by Provider: Nov 04, 2018 Time Seen by Provider: 10:30 CC: GI Bleed HPI: This is a 78-year-old white female who sees Dr. Ruggiero who presented to the [place] ER with hematemesis and melena and hematochezia. She was not maintained on any blood thinners anticoagulation studies were normal and had never had a GI bleed before. Repeat hemoglobin was 5.8 patient was given 2 units of packed red blood cells and Dr. Bautista was consulted. Patient had no significant decompensation during the hospital stay in the ICU or she was admitted to due to severe GI bleed. Dr. Lozada was consulted. She will have EGD and colonoscopy tomorrow by Dr. Bautista. [place] but now I hear she's from [facility] in [place] where she was on skilled care so unsure if she is confused or just a temporary stay at [facility] but I would assume she would've told me she was from [facility] where she [facility] currently. Subjective/Events-last exam Transferred back to unit this morning due to tachypnea and wheezing Placed on biPAP Having more melena Dr Bautista placed central line EGD today Dr Lozada is appreciated Review of Systems Pulmonary: Dyspnea Objective Exam Vital Signs Vital Signs Date Time Temp Pulse Resp B/P (MAP) Pulse Ox O2 Delivery O2 Flow Rate FiO2 11/04/18 12:39 97.5 86 26 119/43 100 NIV Bilevel 11/04/18 12:16 100 11/04/18 11:27 100.00 Capillary Refill : Less Than 3 Seconds General Appearance: WD/WN, Chronically ill, Mild Distress, Thin, Other (on biPAP) HEENT: PERRL/EOMI, Normal ENT Inspection, Pharynx Normal, Moist Mucous Membranes Neck: Full Range of Motion, Normal Inspection, Non Tender Respiratory: Chest Non Tender, Accessory Muscle Use, Decreased Breath Sounds, Wheezing Cardiovascular: No Edema, No Gallop, No JVD, No Murmur, Normal Peripheral Pulses, Tachycardia Gastrointestinal: Normal Bowel Sounds, No Organomegaly, No Pulsatile Mass, Non Tender, Soft Back: Normal Inspection, No CVA Tenderness, No Vertebral Tenderness Extremity: Normal Capillary Refill, Normal Inspection, Normal Range of Motion, Non Tender, No Calf Tenderness, No Pedal Edema Neurologic/Psychiatric: Alert, Disoriented (???) Skin: Normal Color, Warm/Dry Lymphatic: No Adenopathy Results/Procedures Lab Laboratory Tests 11/03/18 16:22 11/04/18 01:05 11/04/18 04:33 11/04/18 06:15 Patient resulted labs reviewed. Assessment/Plan Assessment and Plan Assess & Plan/Chief Complaint Assessment: Acute respiratory failure needing ICU transfer and biPAP GI Bleed EGD today Dementia Debility Plan: ICU biPAP EGD Prognosis guarded Diagnosis/Problems Diagnosis/Problems (1) Respiratory failure Status: Acute Qualifiers: Chronicity: acute Respiratory failure complication: hypoxia Qualified Codes: J96.01 - Acute respiratory failure with hypoxia (2) BiPAP (biphasic positive airway pressure) dependence Status: Acute (3) Anemia due to acute blood loss Status: Acute (4) GERD (gastroesophageal reflux disease) Status: Chronic Qualifiers: Esophagitis presence: without esophagitis Qualified Codes: K21.9 - Gastro- esophageal reflux disease without esophagitis (5) Dementia Status: Chronic Qualifiers: Dementia type: Alzheimer's disease Alzheimer's disease onset: unspecified onset Dementia behavioral disturbance: without behavioral disturbance Qualified Codes: G30.9 - Alzheimer's disease, unspecified; F02.80 - Dementia in other diseases classified elsewhere without behavioral disturbance (6) Acute GI bleeding Status: Acute (7) Weakness Status: Acute (8) Transfusion of blood during current hospitalization Status: Acute Clinical Quality Measures DVT/VTE Risk/Contraindication: Risk Factor Score Per Nursin RFS Level Per Nursing on Admit: 4+=Very High Contraindications-Pharm: Other *list below* Other: gi bleed BO SUÁREZ DO Nov 04, 2018 11:39
[2018-11-04] MEDS: PANTOPRAZOLE INJECTION 200 MG in NS (IVPB) 100 ML IV SCH (13:49)
--- NOTE | 2018-11-04 14:14 | Occ Therapy Progress Note ---
Therapy Progress Note Pt was transferred from medical floor to ICU secondary to change in status. Will require new orders to continue OT services when medically appropriate. Discussed with PRISCILLA. SANGEETHA PAUL OT Nov 04, 2018 14:14
--- NOTE | 2018-11-04 14:34 | NUR ---
TIMELINE NOTE 1000 Patient brought up to ICU via cart with 4th Floor RN and other staff. Patient very pale in color. Patient O2 sats in 90's and on 4LNC but obvious labored breathing. Lung sounds clear/diminished. Only minimally responsive if tapped and shouting name. Bloody, Maroon liquid stool present. 4th FLoor RN retrieved blood from lab and began transfusion. Dr. Lozada, Chuck and Tamara all notified of patient's current status. 1015 Patient's BP soft: 80's systolic. Dr. Lozada Notified. 1017 Bipap treatment initiated for patient as she stated "I cant breath," O2 sats ok. 1030 Levophed started to keep Systolic greater than [address] Lozada verbal order. 1045 Dr. Woods Present and placing a Central Line now. Central Line placed without incident. Patient tolerated well. BP improved. Patient resting comfortably on Bipap. Still pale in color but VSS. See Blood Transfusion documentation for other 2 units Blood that were given during this time.
[2018-11-04] MEDS ORDERED: EPINEPHrine INJECTION 1 MG/ML AMP ONE (15:32)
[2018-11-04] MEDS ORDERED: MIDAZOLAM 5 MG/5 ML (VERSED) VIAL ONE (16:03)
--- NOTE | 2018-11-04 16:31 | Progress Note-Post Operative ---
Post-Operative Progess Note Surgeon (s)/Campaign Marketing Manager (s) Surgeon PJ BHATT MD Campaign Marketing Manager: none Pre-Operative Diagnosis Acute GI bleed Post-Operative Diagnosis reflux esophagitis(stage 2), small HH(1cm), mild gastritis, pyloric ulcer 2x(acute 1cm, chronic 1.5cm), no active bleed. Procedure & Operative Findings Date of Procedure 11/04/18 Procedure Performed/Findings EGD with bx. Anesthesia Type CS Estimated Blood Loss Estimated blood loss (mL): minimal Specimens/Packing Specimens Removed ge jxn, antrum PJ BHATT MD Nov 04, 2018 16:31
--- NOTE | 2018-11-04 16:47 | OPERATIVE REPORT ---
DATE OF SERVICE: 11/04/2018 ATTENDING PRIMARY CARE PHYSICIAN: Dr. Jw Ruggiero. ADMITTING PHYSICIAN: Dr. Mcdonald. PREOPERATIVE DIAGNOSIS: Gastrointestinal bleed. POSTOPERATIVE DIAGNOSES: Reflux esophagitis stage II, small hiatal hernia 1 cm in size. Two pyloric ulcers, one was deep with an overlying fibrin clot as well as a blood clot. There was no active bleeding identified. Just distal to this, was another what appeared to be chronic pyloric ulcer. PROCEDURE: EGD with biopsy. SURGEON: Pj Bhatt MD ANESTHESIA: Conscious sedation. ESTIMATED BLOOD LOSS: Minimal. FINDINGS: Reflux esophagitis stage II, small hiatal hernia 1 cm in size. Two pyloric ulcers, one was deep with an overlying fibrin clot as well as a blood clot. There was no active bleeding identified. Just distal to this, was another what appeared to be chronic pyloric ulcer. DISPOSITION: The patient tolerated the procedure well. INDICATIONS: The patient is a 78-year-old female, who presented to [facility] with melena as well as hematemesis. She was found to be anemic with a hemoglobin of 5.8 and then underwent 2 units of packed red blood cells. Her hemoglobin went up appropriately as she was monitored in the ICU and she was eventually transferred to the floor; however, she did have another episode of dark stools as well as signs of hypovolemic shock as well as respiratory insufficiency and was transferred back to the ICU. Her repeat lab work did show that she was anemic with a hemoglobin in the 6 range and she was transfused more blood. At this time, she appears to be stable. The characteristics of the blood appeared to be most likely secondary to an upper GI source. Upon further questioning the family, she does report a history of peptic ulcer disease. DESCRIPTION OF PROCEDURE: At the bedside in the ICU and under conscious sedation, the mouthpiece was applied as well as a ventilator mask. Endoscope was placed in the mouth, visualizing the pharynx and hypopharyngeal region. Vocal cords, epiglottis and vallecula were identified and appeared to be normal. Endoscope was gently intubated at the esophageal opening and esophagus was insufflated. The endoscope was then advanced to the first, second and third portion of the esophagus. At the level of GE junction, a reflux esophagitis stage II identified. There were no ulcers or strictures identified in this region. A biopsy was taken with forceps with visualization of good hemostasis. The endoscope was then advanced in the stomach and endoscope retroflexed, visualizing a small hiatal hernia, approximately 1 cm in size. There was a mild to moderate gastritis; however, no ulcerations within the antrum or body or fundus of the stomach. The endoscope was then advanced into the pylorus where a deep ulceration was identified with the overlying clot, which was both black in color as well as white fibrin material. This most likely was the cause of the gastrointestinal bleed; however, it was not actively bleeding. Further distally along the pylorus was another chronic appearing ulcer with an overlying fibrin clot as well as tissue granulation. No active bleeding was identified. Due to the nature of her recent copious bleeding, it was decided not to do anything that would aggravate potentially another bleed. Biopsies were taken of the antrum to rule out H. pylori. The endoscope was then slowly withdrawn while taking a second look and suctioning of residual air with no additional findings. The patient tolerated the procedure well. We will continue with medical management with monitoring her in ICU as well as serial hemoglobin and hematocrit checks. She is currently on a proton pump inhibitor drip and we will add Carafate 1 gram q.i.d. as well as a clear liquid diet. She will need a followup colonoscopy in approximately 8 weeks to see if there is resolution of the ulcers as well as a biopsy is appropriate to rule out any malignancy. Job ID: [id number] DocumentID: [id number] Dictated Date: 11/04/2018 16:29:18 [employer] Date: 11/04/2018 16:46:06 Dictated By: PJ BHATT MD
[2018-11-04] MEDS ORDERED: PANTOPRAZOLE 40 MG (PROTONIX) TAB PO SCH (17:00)
--- NOTE | 2018-11-04 17:11 | NUR ---
Timeline Note for EGD: 1605 Dr. Bautista and Endoscopy staff in room setting up for EGD. 1606 Bipap removed and Oxymask placed on patient for procedure 1608 Timeout 1610 2 mg Versed given per Dr. Bautista's verbal order 1610 50mcg Fentanyl given per Dr. Bautista's verbal order. 1612 EGD began 1618 procedure completed. Patient tolerated well. VSS during entire procedure. Bipap placed back on patient.
[2018-11-04] MEDS: ATENOLOL 25 MG (TENORMIN) TAB PO SCH (21:09)
[2018-11-04] MEDS: SUCRALFATE 1 GM (CARAFATE) TAB PO SCH (21:09)
[2018-11-05] VITALS (32 sets, daily range): BP systolic 93–162; BP diastolic 45–74
[2018-11-05 00:36] LABS: HEMOGLOBIN 8.5 G/DL (11.5-16.0)
[2018-11-05] MEDS: NS IV 1000 ML 1,000 ML IV SCH ×3 (01:48→22:01)
[2018-11-05 03:18] LABS: BASOPHILS % (AUTO) 0 % (0-10); EOSINOPHILS # (AUTO) 0.3 10^3/uL (0.0-0.3); EOSINOPHILS % (AUTO) 2 % (0-10); HEMATOCRIT 25 % (35-52); HEMOGLOBIN 8.4 G/DL (11.5-16.0); LYMPHOCYTES % (AUTO) 15 % (12-44); MEAN CORPUSCULAR HEMOGLOBIN 29 PG (25-34); MEAN CORPUSCULAR HGB CONC 34 G/DL (32-36); MEAN CORPUSCULAR VOLUME 88 FL (80-99); MEAN PLATELET VOLUME 9.8 FL (7.4-10.4); MONOCYTES % (AUTO) 7 % (0-12); NEUTROPHILS # (AUTO) 9.9 X 10^3 (1.8-7.8); NEUTROPHILS % (AUTO) 75 % (42-75); PLATELET COUNT 155 10^3/uL (130-400); RED CELL DISTRIBUTION WIDTH 17.6 % (10.0-14.5); WHITE BLOOD COUNT 13.1 10^3/uL (4.3-11.0)
[2018-11-05 03:38] LABS: BUN/CREATININE RATIO 56; CALCIUM 7.4 MG/DL (8.5-10.1); CARBON DIOXIDE 21 MMOL/L (21-32); CHLORIDE 122 MMOL/L (98-107); CREATININE SERUM 0.54 MG/DL (0.60-1.30); GFR ESTIMATED > 60; GLUCOSE 125 MG/DL (70-105); MAGNESIUM 1.7 MG/DL (1.8-2.4); PHOSPHORUS 2.3 MG/DL (2.3-4.7); POTASSIUM 4.4 MMOL/L (3.6-5.0); SODIUM 148 MMOL/L (135-145)
--- NOTE | 2018-11-05 06:33 | Pulmonary Progress Note ---
Subjective Time Seen by a Provider: 09:01 Subjective/Events-last exam No SOB or fever Sepsis Event Evaluation Height, Weight, BMI Height: 5'2.00" Weight: 115lbs. 15.0oz. 52.737432py; 22.3 BMI Method:Actual Exam Exam Vital Signs Date Time Temp Pulse Resp B/P (MAP) Pulse Ox O2 Delivery O2 Flow Rate FiO2 11/05/18 06:00 86 33 94/58 (70) 100 High Flow N/C 6.00 11/05/18 05:00 93 22 96/63 (74) 100 High Flow N/C 6.00 11/05/18 04:00 83 29 119/63 (81) 100 High Flow N/C 6.00 11/05/18 03:00 80 26 107/55 (72) 100 High Flow N/C 6.00 11/05/18 02:00 82 21 104/57 (73) 100 High Flow N/C 6.00 11/05/18 01:00 80 11/05/18 01:00 80 27 105/61 (76) 100 High Flow N/C 6.00 11/05/18 00:53 High Flow N/C 6.00 11/05/18 00:00 95 High Flow N/C 8.00 11/05/18 00:00 81 29 103/58 (73) 100 High Flow N/C 8.00 11/04/18 23:00 85 29 112/68 (83) 100 High Flow N/C 8.00 11/04/18 22:00 92 29 110/61 (77) 100 High Flow N/C 8.00 11/04/18 21:00 99 28 117/68 (84) 100 High Flow N/C 8.00 11/04/18 20:00 99 28 120/68 (85) 100 High Flow N/C 8.00 11/04/18 20:00 95 High Flow N/C 8.00 11/04/18 19:00 103 11/04/18 19:00 103 29 104/70 (81) 100 High Flow N/C 8.00 11/04/18 18:30 100 High Flow N/C 10.00 11/04/18 18:00 103 27 115/42 (66) 100 NIV Bilevel 80.00 11/04/18 17:00 103 28 126/79 (95) 100 NIV Bilevel 80.00 11/04/18 16:58 103 30 99 65.00 11/04/18 16:15 98.9 11/04/18 16:15 111 25 100 OxyMask 10 11/04/18 16:05 112 27 100 OxyMask 10 11/04/18 16:00 100 NIV Bilevel 100 11/04/18 16:00 112 28 103/61 (75) 100 NIV Bilevel 80.00 11/04/18 15:09 95 27 99 80.00 11/04/18 15:00 99 25 117/54 (75) 100 NIV Bilevel 80.00 11/04/18 14:39 NIV Bilevel 80.00 11/04/18 14:00 91 28 111/69 (83) 91 NIV Bilevel 100.00 11/04/18 13:00 93 26 121/64 (83) 100 NIV Bilevel 100.00 11/04/18 13:00 89 11/04/18 12:39 97.5 86 26 119/43 100 NIV Bilevel 11/04/18 12:16 97.4 89 23 108/63 100 NIV Bilevel 100 11/04/18 12:00 101 20 128/77 (94) 97 NIV Bilevel 100.00 11/04/18 12:00 100 NIV Bilevel 100 11/04/18 11:51 98.6 11/04/18 11:29 97.3 94 24 111/78 96 NIV Bilevel 100 11/04/18 11:27 95 25 100 100.00 11/04/18 11:00 95 30 118/90 (99) 100 NIV Bilevel 100.00 11/04/18 10:45 95 31 93/66 (75) 100 NIV Bilevel 100.00 11/04/18 10:35 97.2 96 33 115/60 100 NIV Bilevel 100 11/04/18 10:30 107 42 119/47 (71) 100 NIV Bilevel 100.00 11/04/18 10:21 NIV Bilevel 100.00 11/04/18 10:20 99.6 112 34 87/65 98 Non Rebreather 15.00 11/04/18 10:15 112 30 82/45 (57) 100 Non Rebreather 15.00 11/04/18 10:09 112 11/04/18 10:05 109 30 99/73 (82) 99 Non Rebreather 15.00 11/04/18 10:00 High Flow N/C 6.00 11/04/18 10:00 109 17 88/48 (61) 97 High Flow N/C 4.00 11/04/18 08:00 98.2 95 18 117/58 (77) 100 High Flow N/C 4.00 11/04/18 07:50 High Flow N/C 6.00 I & O 11/05/18 07:00 Intake Total 760 ml Output Total 450 ml Balance 310 ml Height & Weight Height: 5'2.00" Weight: 115lbs. 15.0oz. 52.380769ut; 22.3 BMI Method:Actual General Appearance: No Apparent Distress, WD/WN, Chronically ill, Thin HEENT: PERRL/EOMI, Normal ENT Inspection, Pharynx Normal, Moist Mucous Membranes Neck: Full Range of Motion, Normal Inspection, Non Tender Respiratory: Chest Non Tender, Lungs Clear, Normal Breath Sounds, No Accessory Muscle Use, No Respiratory Distress Cardiovascular: Regular Rate, Rhythm, No Edema, No Gallop, No JVD, No Murmur, Normal Peripheral Pulses Capillary Refill: Less Than 3 Seconds Gastrointestinal: normal bowel sounds, non tender, soft, no organomegaly, no pulsatile mass Extremity: Normal Capillary Refill, Normal Inspection, Normal Range of Motion, Non Tender, No Calf Tenderness, No Pedal Edema Neurologic/Psychiatric: Alert, Oriented x3, No Motor/Sensory Deficits, Normal Mood/Affect, Disoriented (???) Skin: Normal Color, Warm/Dry Lymphatic: No Adenopathy Results Lab Laboratory Tests 11/03/18 13:00 11/03/18 16:22 11/04/18 01:05 11/04/18 04:33 11/04/18 06:15 11/04/18 15:15 11/05/18 00:26 11/05/18 03:07 Assessment/Plan Assessment/Plan Acute GIB - with PUD - -S/p EGD - No active bleeding per EGD -Surgery following -Large melanotic stool this AM -Protonix gtt -IVF -H&H Q6 Anemia s/p 5 units PRBC -Monitor Hypotension -Monitor -IVF, PRBC Left sided rib fractures s/p fall 2 mo ago -IS -Fall risk Pulmonary infiltrate -Monitor for now Small left pleural effusion -Monitor ARJUN MEADE DO Nov 05, 2018 06:33
--- NOTE | 2018-11-05 07:44 | Diagnostic Imaging Report ---
INDICATION: Dyspnea. COMPARISON: 11/04/2018 FINDINGS: Single frontal radiographic view of the chest demonstrates stable cardiac silhouette and pulmonary vasculature. There is blunting of the bilateral lateral costophrenic angles suggestive of small effusions. There is no focal consolidation or pneumothorax on either side. Left-sided subclavian central venous catheter is in stable position. Bony structures show no acute adverse interval change. IMPRESSION: 1. Probable small bibasilar effusions. Dictated by: Dictated on workstation # [id number]
[2018-11-05] MEDS: inSUlin ASPART (NovoLOG) 1 UNIT/0.01 ML (CHARGE PER UNIT) SC SCH ×4 (07:50→21:13)
[2018-11-05] MEDS: VITAMIN D3 1,000 UNITS (CHOLECALCIFEROL) TABLET PO SCH (08:04)
[2018-11-05] MEDS: CALCIUM CARB + VIT D 600 MG (CALCARB + D) TAB PO SCH (08:04)
[2018-11-05] MEDS: FOLIC ACID 1 MG TAB PO SCH (08:04)
[2018-11-05] MEDS: MULTIVIT W/MINERALS TAB (THERAGRAN M) PO SCH (08:05)
[2018-11-05] MEDS: 1/2 NS IV SOLUTION 1,000 ML IV SCH ×2 (08:05→16:30)
[2018-11-05] MEDS: SUCRALFATE 1 GM (CARAFATE) TAB PO SCH ×4 (08:05→21:05)
[2018-11-05] MEDS: MAGNESIUM 1 GM/100 ML IVPB 100 ML IV SCH ×2 (08:15→09:21)
[2018-11-05] MEDS: RT-ALBUTEROL SULF 2.5 MG/3 ML PRE-MIX VIAL INH PRN (08:16)
[2018-11-05] MEDS: fentaNYL INJECTION 100 MCG/2 ML AMP IVP PRN (08:38)
--- NOTE | 2018-11-05 08:57 | NUR ---
DR MARSH IN ROOM TO SEE PATIENT, NEW VERBAL ORDERS RECEIVED TO GIVE 2 UNITS PRBC'S AND MAKE PT NPO. REPEAT H&H 6 HRS AFTER BLOOD TRANSFUSION.
--- NOTE | 2018-11-05 09:26 | Progress Note-Hospitalist ---
Subjective HPI/CC On Admission Date Seen by Provider: Nov 05, 2018 Time Seen by Provider: 09:00 CC: GI Bleed HPI: This is a 78-year-old white female who sees Dr. Ruggiero who presented to the [place] ER with hematemesis and melena and hematochezia. She was not maintained on any blood thinners anticoagulation studies were normal and had never had a GI bleed before. Repeat hemoglobin was 5.8 patient was given 2 units of packed red blood cells and Dr. Bautista was consulted. Patient had no significant decompensation during the hospital stay in the ICU or she was admitted to due to severe GI bleed. Dr. Lozada was consulted. She will have EGD and colonoscopy tomorrow by Dr. Bautista. [place] but now I hear she's from medical [place] in [place] where she was on skilled care so unsure if she is confused or just a temporary stay at [facility] but I would assume she would've told me she was from a senior living where she lives currently. Subjective/Events-last exam Patient appears to be somewhat depressed today. She denies having any pain but says she just had some morphine. She appears to be very pale but is lying there quietly otherwise. Systolic blood pressure is in the low 100s Review of Systems Pulmonary: Dyspnea Gastrointestinal: Melena Neurological: Weakness Objective Exam Vital Signs Vital Signs Date Time Temp Pulse Resp B/P (MAP) Pulse Ox O2 Delivery O2 Flow Rate FiO2 11/05/18 08:21 100 Nasal Cannula 5.00 11/05/18 08:00 98 26 102/74 (83) 11/05/18 04:00 97.5 11/04/18 16:00 100 Capillary Refill : Less Than 3 Seconds General Appearance: No Apparent Distress, WD/WN, Chronically ill, Thin HEENT: PERRL/EOMI, Normal ENT Inspection, Pharynx Normal, Moist Mucous Membranes, Pale Conjunctivae (R) Neck: Full Range of Motion, Normal Inspection, Non Tender Respiratory: Chest Non Tender, Lungs Clear, Normal Breath Sounds, No Accessory Muscle Use, No Respiratory Distress Cardiovascular: Regular Rate, Rhythm, No Edema, No Gallop, No JVD, No Murmur, Normal Peripheral Pulses Gastrointestinal: Normal Bowel Sounds, No Organomegaly, No Pulsatile Mass, Non Tender, Soft Back: Normal Inspection, No CVA Tenderness, No Vertebral Tenderness Extremity: Normal Capillary Refill, Normal Inspection, Normal Range of Motion, Non Tender, No Calf Tenderness, No Pedal Edema Neurologic/Psychiatric: Alert, Oriented x3, No Motor/Sensory Deficits, Normal Mood/Affect, Disoriented (???) Skin: Warm/Dry, Pallor Lymphatic: No Adenopathy Results/Procedures Lab Laboratory Tests 11/04/18 15:15 11/05/18 00:26 11/05/18 03:07 Patient resulted labs reviewed. Imaging: Reviewed Imaging Report Assessment/Plan Assessment and Plan Assess & Plan/Chief Complaint 1. Upper G I bleeding secondary to pyloric ulcers 2-still with active bleeding -on Protonix and Carafate. 2. Rheumatoid arthritis with a history of being on methotrexate-currently being held 3. Type II diabetes 4. Mild dementia 5. Anemia going to be transfused 2 units today. 6. Hypomagnesemia will replace 7. Pleural effusions on chest x-ray will need to monitor fluids and respiratory status closely. Clinical Quality Measures DVT/VTE Risk/Contraindication: Risk Factor Score Per Nursin RFS Level Per Nursing on Admit: 4+=Very High Contraindications-Pharm: Other *list below* Other: gi bleed KVNG HERNÁNDEZ MD Nov 05, 2018 09:26
[2018-11-05] MEDS: NS IV 500 ML 500 ML IV SCH (10:00)
[2018-11-05] MEDS: PANTOPRAZOLE INJECTION 200 MG in NS (IVPB) 100 ML IV SCH (10:35)
[2018-11-05] MEDS: LORazepam INJ 2 MG/ML (ATIVAN) VIAL IVP PRN (11:31)
[2018-11-05] MEDS ORDERED: NS IV 1000 ML 1,000 ML ONE (11:42)
[2018-11-05] MEDS ORDERED: EPINEPHrine INJECTION 1 MG/ML AMP ONE ×2 (11:50→16:42)
[2018-11-05] MEDS ORDERED: PROPOFOL DRIP (ICU) 100 ML IV ONE ×2 (11:59→19:58)
[2018-11-05] MEDS ORDERED: proPOfol 200 MG/20 ML (DIPRIVAN) VIAL IV ONE (12:10)
[2018-11-05 12:23] LABS: INR 1.5 (0.8-1.4)
[2018-11-05 12:25] LABS: BASOPHILS % (AUTO) 0 % (0-10); EOSINOPHILS # (AUTO) 0.1 10^3/uL (0.0-0.3); EOSINOPHILS % (AUTO) 1 % (0-10); HEMATOCRIT 22 % (35-52); HEMOGLOBIN 7.3 G/DL (11.5-16.0); LYMPHOCYTES % (AUTO) 10 % (12-44); MEAN CORPUSCULAR HEMOGLOBIN 30 PG (25-34); MEAN CORPUSCULAR HGB CONC 33 G/DL (32-36); MEAN CORPUSCULAR VOLUME 91 FL (80-99); MEAN PLATELET VOLUME 9.9 FL (7.4-10.4); MONOCYTES # (AUTO) 0.8 X 10^3 (0.0-1.0); MONOCYTES % (AUTO) 7 % (0-12); NEUTROPHILS % (AUTO) 82 % (42-75); PLATELET COUNT 127 10^3/uL (130-400); RED CELL DISTRIBUTION WIDTH 16.6 % (10.0-14.5); WHITE BLOOD COUNT 10.9 10^3/uL (4.3-11.0)
[2018-11-05] MEDS: OCTREOTIDE INJECTION 500 MCG in NS (IVPB) 99 ML IV SCH ×2 (12:53→22:49)
--- NOTE | 2018-11-05 12:56 | Anesthesia-Procedure Note ---
Procedures/Interventions Procedure Start/Stop/Diagnosis Date of Procedure: Nov 05, 2018 Start Time: 12:30 Stop Time: 12:55 Arterial Line Arterial Line Catheter: 20G Type: Radial Location: Left Procedure: prepped, draped in sterile fashion, good wave-form was obtained, patient tolerated procedure well, no immediate complications, post procedure area cleaned, post procedure dressing applied JUVENAL COOK CRNA Nov 05, 2018 12:56
--- NOTE | 2018-11-05 12:59 | Anesthesia-Procedure Note ---
Procedures/Interventions Procedure Start/Stop/Diagnosis Date of Procedure: Nov 05, 2018 Start Time: 12:25 Stop Time: 12:30 Intubation RSI: Yes 100% pre-Ox, [id number]: Yes Intubation Method: orotracheal Videoscope used: Yes Grade View: 2 Medications: Propofol, Succinylcholine Mask Ventilation: positive Positive End Tide CO2: Yes Breath Sounds after Intubation: bilateral-equal ETT Securred @ (cm): 23 Intubated with ease: Yes Intubation Complications: other (tooth extraction x2 by srna student agus brito) Post Intubation Xray-done: Yes JUVENAL COOK [employer]AY [employer] ASSEMBLER Nov 05, 2018 12:59
--- NOTE | 2018-11-05 13:49 | Cardiology Progress Note ---
Cardiology SOAP Progress Note Subjective: In distress. Objective: I&O/Vital Signs 11/05/18 11/05/18 11/05/18 11/05/18 02:00 03:00 04:00 04:00 Temp 97.5 Pulse 82 80 Resp 21 26 B/P (MAP) 104/57 (73) 107/55 (72) Pulse Ox 100 100 95 O2 Delivery High Flow N/C High Flow N/C High Flow N/C O2 Flow Rate 6.00 6.00 5.00 11/05/18 11/05/18 11/05/18 11/05/18 04:00 05:00 06:00 07:00 Pulse 83 93 86 93 Resp 29 22 33 23 B/P (MAP) 119/63 (81) 96/63 (74) 94/58 (70) 96/53 (67) Pulse Ox 100 100 100 100 O2 Delivery High Flow N/C High Flow N/C High Flow N/C High Flow N/C O2 Flow Rate 6.00 6.00 6.00 6.00 11/05/18 11/05/18 11/05/18 11/05/18 07:00 08:00 08:15 08:21 Pulse 96 98 Resp 26 B/P (MAP) 102/74 (83) Pulse Ox 99 95 100 O2 Delivery High Flow N/C High Flow N/C Nasal Cannula O2 Flow Rate 6.00 3.00 5.00 11/05/18 11/05/18 11/05/18 11/05/18 10:00 10:05 10:34 11:00 Temp 97.2 97.4 Pulse 93 95 96 105 Resp 26 28 35 B/P (MAP) 95/56 (69) 95/56 93/68 98/62 (74) Pulse Ox 100 O2 Delivery High Flow N/C High Flow N/C O2 Flow Rate 6.00 6.00 11/05/18 12:30 Pulse 95 Resp 16 Pulse Ox 100 FiO2 100 11/05/18 00:00 Intake Total 490 ml Output Total 450 ml Balance 40 ml Weight (Pounds): 114 Weight (Ounces): 15.0 Weight (Calculated Kilograms): 51.964136 Constitutional: appears stated age, apparent distress, well-developed, well- nourished Respiratory: accessory muscle use, respiratory distress, rhonchi Cardiovascular: regular rate-rhythm; No irregularly irregular, No extra beats, No parasternal heave is noted, No JVD, No edema, No bradycardia, No tachycardia , No point of maximal impulse, No cardiac thrills are palpable; S1 and S2; No gallop/S3, No gallop/S4, No diastolic murmur, No systolic murmur, No friction rub, No click, No other Gastrointestional: No tender; soft; No round, No distended, No pulsatile mass, No organomegaly, No guarding, No rebound, No tenderness, No hernia, No mass, No audible bowel sounds, No abnormal bowel sounds, No abdominal bruits, No spleenomegaly, No other Extremities: No normal range of motion, No non-tender, No normal inspection, No pedal edema, No calf tenderness, No normal capillary refill, No pelvis stable , No calf tenderness, No inflammation, No pedal edema, No slow capillary refill , No swelling, No other, No abrasion, No clubbing, No cyanosis, No ecchymosis, No laceration, No no lower extremity edema bilateral, No significant edema, No tenderness, No wound Neurologic/Psychiatric: alert, oriented x 3, power is 5/5 both on sides Skin: pallor; No rash, No ulcerations Results/Procedures: Labs Laboratory Tests 11/04/18 15:15: Hemoglobin 11.0#L, Hematocrit 32L 11/04/18 17:36: Glucometer 256H 11/04/18 21:05: Glucometer 192H 11/05/18 00:26: Hemoglobin 8.5#L, Hematocrit 26L 11/05/18 03:07: White Blood Count 13.1H, Red Blood Count 2.86L, Hemoglobin 8.4L, Hematocrit 25L , Mean Corpuscular Volume 88, Mean Corpuscular Hemoglobin 29, Mean Corpuscular Hemoglobin Concent 34, Red Cell Distribution Width 17.6H, Platelet Count 155, Mean Platelet Volume 9.8, Neutrophils (%) (Auto) 75, Lymphocytes (%) (Auto) 15, Monocytes (%) (Auto) 7, Eosinophils (%) (Auto) 2, Basophils (%) (Auto) 0, Neutrophils # (Auto) 9.9H, Lymphocytes # (Auto) 2.0, Monocytes # (Auto) 1.0, Eosinophils # (Auto) 0.3, Basophils # (Auto) 0.0, Sodium Level 148H, Potassium Level 4.4, Chloride Level 122H, Carbon Dioxide Level 21, Anion Gap 5, Blood Urea Nitrogen 30H, Creatinine 0.54L, Estimat Glomerular Filtration Rate > 60, BUN/Creatinine Ratio 56, Glucose Level 125H, Calcium Level 7.4L, Phosphorus Level 2.3, Magnesium Level 1.7L 11/05/18 11:57: White Blood Count 10.9, Red Blood Count 2.47L, Hemoglobin 7.3L, Hematocrit 22L, Mean Corpuscular Volume 91, Mean Corpuscular Hemoglobin 30, Mean Corpuscular Hemoglobin Concent 33, Red Cell Distribution Width 16.6H, Platelet Count 127L, Mean Platelet Volume 9.9, Neutrophils (%) (Auto) 82H, Lymphocytes (%) (Auto) 10L , Monocytes (%) (Auto) 7, Eosinophils (%) (Auto) 1, Basophils (%) (Auto) 0, Neutrophils # (Auto) 9.0H, Lymphocytes # (Auto) 1.0, Monocytes # (Auto) 0.8, Eosinophils # (Auto) 0.1, Basophils # (Auto) 0.0, Prothrombin Time 19.0H, INR Comment 1.5H, Activated Partial Thromboplast Time 34 Microbiology 11/02/18 MRSA Screen - Final, Complete MRSA not isolated A/P: Assessment/Dx: Severe GI bleeding, anemia, Severe respiratory failure Plan: Severe GI bleeding, transfusion with PRBCs, will require upper and lower GI endoscopy. Severe respiratory failure - Pulmonary on board. Will likely require intubation. Echocardiogram done 11/04/2018 shows normal LV function with mild to moderate LVH , moderate to severe pulmonary hypertension. Collapsed IVC suggesting significant volume depletion. Thank you for your consultation. Please call me if you have any questions. Belinda Thrasher MD, FACP, FACC, FSCAI, FHRS, CCDS Interventional Cardiology Cardiac Electrophysiology Vascular Medicine and Endovascular Interventions Yan THRASHER MD Nov 05, 2018 1:49 pm
[2018-11-05] MEDS ORDERED: ROCURONIUM 10 MG/ML 5 ML SYRINGE IV ONE (15:55)
[2018-11-05] MEDS ORDERED: SUCCINYLCHOLINE INJ 100 MG/5 ML SYR INJ ONE (15:55)
[2018-11-05 16:08] LABS: INR 1.4 (0.8-1.4); PROTHROMBIN TIME PATIENT 17.6 SEC (12.2-14.7)
--- NOTE | 2018-11-05 16:13 | NUR ---
1115 PT CONTINUES TO HAVE LOOSE BLOODY STOOLS, DR MARSH NOTIFIED AND ORDERS RECEIVED TO PLACE A FLEX SEAL. FLEX SEAL PLACED. 1140 DR MEADE NOTIFED OF Addendum: 11/05/18 at 1628 by EZIO MACDONALD RN 1140 DR MEADE NOTIFIED OF PT'S DECREASED BLOOD PRESSURE AND DECREASED OXYGEN SATURATION. PT SA02 ON 8 LITERS PER NC NOTED IN THE LOW 80'S. ORDERS TO PLACE PT ON VENTILATOR. DR MARSH NOTIFIED AND ORDERS TO OBTAIN CONSENT FOR EGD AT BEDSIDE. WOVEN PAPER HAT MENDER NOTIFIED OF ABOVE. PT'S AT BEDSIDE AND AGREES WITH NEEDS ABOVE CONSENT OBTAINED. 1224 ANESTHESIA HERE AND 150 OF PROP GIVEN AND 80 OF SUXX. PT INTUBATED AT 1225 WITH 8 PANAMANIAN WITH 23 AT LIP. 1226 JESSICA 40 GIVEN, OG PLACED AT 1229 ENDOSCOPY GIVEN AT 1256 AND ART LINE PLACED AT 1250 WITH 20 GAUGE PER ANESTHESIA 1315 1 LITER NS GIVEN WIDE OPEN FOR VERBAL ORDERS DR MARSH PT'S BLOOD PRESSURE NOTED AT 37/24 OCTEOTRIDE STARTED AT 10ML/HR AT 12:58, 1325 LEVOPHED STARTED 0.2 13:35 3RD UNIT OF BLOOD STARTED EGD COMPLETED AT 13:38 15:45 MASS TRANSFUSION PROTOCOL INITIATED.
[2018-11-05 16:16] LABS: ABG OXYGEN SATURATION 100 % (94-100); ABG PCO2 26 MMHG (35-45); ABG PO2 284 MMHG (79-93); ABG TCO2 11.8 MMOL/L (21.0-31.0)
[2018-11-05 16:31] LABS: ABG PH 7.25 (7.37-7.43)
[2018-11-05 16:32] LABS: ALLENS TEST YES-POS; INSPIRED O2 80%; PATIENT TEMP 97.6; VENTILATOR YES
[2018-11-05] MEDS ORDERED: SODIUM BICARB 8.4% 50 MEQ/50 ML (ABBOTT) SYR IV ONE (16:45)
--- NOTE | 2018-11-05 16:46 | NUR ---
DR MEADE NOTIFIED OF BICARB OF 11 ORDERS 2 AMPS BICARB GIVEN. BOTH AMPS ADMIND.
--- NOTE | 2018-11-05 16:55 | NUR ---
2ND EGD STARTED WITH ENDOSCOPY AND DR MARSH AT BEDSIDE. PT ISMAEL WELL. PROCEDURE ENDED AT 1839.
--- NOTE | 2018-11-05 17:03 | Diagnostic Imaging Report ---
EXAMINATION: Chest radiograph, portable AP view. DATE: November 05, 2018 at 1645 hours. INDICATION: 78-year-old female, endotracheal tube placement. COMPARISON: November 05, 2018 at 0417 hours. FINDINGS: There is cervical spine hardware. The endotracheal tube is approximately 3.2 cm above the maikel. The is a left-sided central venous line overlying the upper SVC. The nasogastric tube extends below the [id number]. The endotracheal tube and nasogastric tube are newly placed since comparison exam. Stable overall appearance of the cardiomediastinal silhouette. There is no identified pneumothorax. There is blunting of the left lateral costophrenic angle and nonspecific left basilar airspace consolidation. There is also mildly increasing streaky opacities within the right lung base. There are redemonstrated left-sided rib deformities. IMPRESSION: 1. Interval placement of endotracheal tube and nasogastric tube, as above. 2. Persistent nonspecific bibasilar airspace consolidation, mildly increasing in the right lung base since recent comparison exam. This may reflect small effusion, infiltrate and/or atelectasis. Dictated by: Dictated on workstation # [id number]
[2018-11-05] MEDS ORDERED: NOREPINEPHRINE 4 MG/4 ML (LEVOPHED) AMP IV ONE (17:06)
[2018-11-05] MEDS ORDERED: NS (IVPB) 250 ML ONE (17:06)
[2018-11-05] MEDS: NOREPINEPHRINE 4 MG in NS (IVPB) 250 ML IV SCH (18:40)
[2018-11-05] MEDS ORDERED: EPINEPHrine INJECTION 1 MG/ML AMP IV PRN (19:15)
[2018-11-05] MEDS: PROPOFOL DRIP (ICU) 100 ML IV SCH (20:03)
[2018-11-05] MEDS: ATENOLOL 25 MG (TENORMIN) TAB PO SCH (21:01)
--- NOTE | 2018-11-05 21:25 | Progress Note ---
Subjective Date Seen by a Provider: Nov 05, 2018 Time Seen by a Provider: 12:00 Subjective/Events-last exam Patient having emesis of bright red blood and black tarry stools. More hypotensive. Patient has been intubated after having bloody emesis. at bedside. Objective Exam Vital Signs Date Time Temp Pulse Resp B/P (MAP) Pulse Ox O2 Delivery O2 Flow Rate FiO2 11/05/18 21:00 108 26 101/45 (63) 96 Mechanical Ventilator 50.00 11/05/18 20:33 98.1 101 16 162/63 98 Mechanical Ventilator 50 11/05/18 20:03 Mechanical Ventilator 50.00 11/05/18 20:00 102 27 100/46 (64) 98 Mechanical Ventilator 50.00 11/05/18 20:00 98 Mechanical Ventilator 50 11/05/18 19:55 101 19 96 50 11/05/18 19:40 98.4 101 16 124/51 (75) 99 Mechanical Ventilator 50.00 11/05/18 19:00 105 23 106/48 (67) 97 Mechanical Ventilator 60.00 11/05/18 19:00 105 11/05/18 18:36 104 25 100 50 11/05/18 18:00 103 24 117/53 (74) 99 Mechanical Ventilator 60.00 11/05/18 17:00 101 14 116/53 (74) 98 Mechanical Ventilator 60.00 11/05/18 16:05 93 26 100 80 11/05/18 16:00 93 20 96/53 (67) 100 Mechanical Ventilator 90.00 11/05/18 16:00 100 Mechanical Ventilator 90 11/05/18 15:00 93 18 100/53 (69) 100 Mechanical Ventilator 100.00 11/05/18 14:57 95 16 100 80 11/05/18 14:55 96.9 95 12 100 Mechanical Ventilator 90 11/05/18 14:00 99 25 155/67 (96) 100 Mechanical Ventilator 100.00 11/05/18 13:00 102 11/05/18 13:00 101 16 104/60 (75) High Flow N/C 6.00 11/05/18 12:55 95 Mechanical Ventilator 100 11/05/18 12:30 95 16 100 100 11/05/18 12:00 94 31 105/54 (71) High Flow N/C 6.00 11/05/18 11:59 110 4/20/19 11:00 105 35 98/62 (74) High Flow N/C 6.00 11/05/18 10:34 97.4 96 93/68 11/05/18 10:05 97.2 95 28 95/56 11/05/18 10:00 93 26 95/56 (69) 100 High Flow N/C 6.00 11/05/18 08:21 100 Nasal Cannula 5.00 11/05/18 08:15 95 High Flow N/C 3.00 11/05/18 08:00 98 26 102/74 (83) 99 High Flow N/C 6.00 11/05/18 07:00 96 11/05/18 07:00 93 23 96/53 (67) 100 High Flow N/C 6.00 11/05/18 06:00 86 33 94/58 (70) 100 High Flow N/C 6.00 11/05/18 05:00 93 22 96/63 (74) 100 High Flow N/C 6.00 11/05/18 04:00 83 29 119/63 (81) 100 High Flow N/C 6.00 11/05/18 04:00 95 High Flow N/C 5.00 11/05/18 04:00 97.5 11/05/18 03:00 80 26 107/55 (72) 100 High Flow N/C 6.00 11/05/18 02:00 82 21 104/57 (73) 100 High Flow N/C 6.00 11/05/18 01:00 80 11/05/18 01:00 80 27 105/61 (76) 100 High Flow N/C 6.00 11/05/18 00:53 High Flow N/C 6.00 11/05/18 00:00 98.5 11/05/18 00:00 95 High Flow N/C 8.00 11/05/18 00:00 81 29 103/58 (73) 100 High Flow N/C 8.00 11/04/18 23:00 85 29 112/68 (83) 100 High Flow N/C 8.00 11/04/18 22:00 92 29 110/61 (77) 100 High Flow N/C 8.00 I & O 11/05/18 07:00 Intake Total 810 ml Output Total 675 ml Balance 135 ml Capillary Refill : Greater Than 3 SecondsGreater Than 3 Seconds General Appearance: Chronically ill, Thin, Other (intubated sedated) HEENT: PERRL/EOMI, Normal ENT Inspection, Pharynx Normal, Moist Mucous Membranes, Pale Conjunctivae (R) Neck: Full Range of Motion, Normal Inspection, Non Tender Respiratory: Normal Breath Sounds, No Accessory Muscle Use, No Respiratory Distress Cardiovascular: Regular Rate, Rhythm Gastrointestinal: soft, no organomegaly, no pulsatile mass Extremity: Normal Capillary Refill, Normal Inspection, Normal Range of Motion, Non Tender, No Calf Tenderness, No Pedal Edema Neurologic/Psychiatric: Alert, Oriented x3, No Motor/Sensory Deficits, Normal Mood/Affect, Disoriented (???) Skin: Warm/Dry, Pallor Lymphatic: No Adenopathy Results Lab Laboratory Tests 11/05/18 00:26: Hemoglobin 8.5#L, Hematocrit 26L 11/05/18 03:07: Hemoglobin 8.4L, Hematocrit 25L, White Blood Count 13.1H, Red Blood Count 2.86L , Mean Corpuscular Volume 88, Mean Corpuscular Hemoglobin 29, Mean Corpuscular Hemoglobin Concent 34, Red Cell Distribution Width 17.6H, Platelet Count 155, Mean Platelet Volume 9.8, Neutrophils (%) (Auto) 75, Lymphocytes (%) (Auto) 15, Monocytes (%) (Auto) 7, Eosinophils (%) (Auto) 2, Basophils (%) (Auto) 0, Neutrophils # (Auto) 9.9H, Lymphocytes # (Auto) 2.0, Monocytes # (Auto) 1.0, Eosinophils # (Auto) 0.3, Basophils # (Auto) 0.0, Sodium Level 148H, Potassium Level 4.4, Chloride Level 122H, Carbon Dioxide Level 21, Anion Gap 5, Blood Urea Nitrogen 30H, Creatinine 0.54L, Estimat Glomerular Filtration Rate > 60, BUN/Creatinine Ratio 56, Glucose Level 125H, Calcium Level 7.4L, Phosphorus Level 2.3, Magnesium Level 1.7L 11/05/18 11:57: Hemoglobin 7.3L, Hematocrit 22L, White Blood Count 10.9, Red Blood Count 2.47L, Mean Corpuscular Volume 91, Mean Corpuscular Hemoglobin 30, Mean Corpuscular Hemoglobin Concent 33, Red Cell Distribution Width 16.6H, Platelet Count 127L, Mean Platelet Volume 9.9, Neutrophils (%) (Auto) 82H, Lymphocytes (%) (Auto) 10L , Monocytes (%) (Auto) 7, Eosinophils (%) (Auto) 1, Basophils (%) (Auto) 0, Neutrophils # (Auto) 9.0H, Lymphocytes # (Auto) 1.0, Monocytes # (Auto) 0.8, Eosinophils # (Auto) 0.1, Basophils # (Auto) 0.0, Prothrombin Time 19.0H, INR Comment 1.5H, Activated Partial Thromboplast Time 34 11/05/18 15:54: Hemoglobin 13.0#, Hematocrit 38, Prothrombin Time 17.6H, INR Comment 1.4 11/05/18 16:13: Blood Gas Puncture Site ART LINE, Blood Gas Patient Temperature 97.6, Arterial Blood pH 7.25*L, Arterial Blood Partial Pressure CO2 26L, Arterial Blood Partial Pressure O2 284H, Arterial Blood HCO3 11*L, Arterial Blood Total CO2 11.8L, Arterial Blood Oxygen Saturation 100, Arterial Blood Base Excess -15.0L, Jackson Test YES-POS, Blood Gas Ventilator Setting YES, Blood Gas Inspired Oxygen 80% Microbiology 11/02/18 MRSA Screen - Final, Complete MRSA not isolated Assessment/Plan Assessment/Plan Assessment/Plan hematemesis melena upper gi bleed pyloric ulcers patient with pyloric ulcers had egd yesterday, now having hematemesis and tarry stools and blood pressures are decreasing plan egd to re-evaluate discussed risks and benefits with who agrees with plan. transfuse prn had 6 units prbc yesterday massive transfusion protocol Clinical Quality Measures DVT/VTE Risk/Contraindication: Risk Factor Score Per Nursin RFS Level Per Nursing on Admit: 4+=Very High Contraindications-Pharm: Other *list below* Other: gi bleed ROBERT MARSH DO Nov 05, 2018 21:25
--- NOTE | 2018-11-05 21:27 | Progress Note-Post Operative ---
Post-Operative Progess Note Surgeon (s)/Steerer (s) Surgeon ROBERT MARSH DO Steerer: none Pre-Operative Diagnosis Acute GI bleed Post-Operative Diagnosis pyloric ulcer and small hiatal hernia Procedure & Operative Findings Date of Procedure 11/05/18 Procedure Performed/Findings egd Anesthesia Type sedation Estimated Blood Loss Estimated blood loss (mL): significant clots in stomach Specimens/Packing Specimens Removed na ROBERT MARSH DO Nov 05, 2018 21:27
--- NOTE | 2018-11-05 21:28 | Progress Note-Post Operative ---
Post-Operative Progess Note Surgeon (s)/Pediatric Orthodontist (s) Surgeon ROBERT MARSH DO Pediatric Orthodontist: none Pre-Operative Diagnosis Acute GI bleed Post-Operative Diagnosis pyloric bleeding ulcer, small h/h Procedure & Operative Findings Date of Procedure 11/05/18 Procedure Performed/Findings egd c injection of epinephrine Anesthesia Type sedation Estimated Blood Loss Estimated blood loss (mL): minimal Specimens/Packing Specimens Removed na ROBERT MARSH DO Nov 05, 2018 21:28
[2018-11-06] VITALS (35 sets, daily range): BP systolic 90–137; BP diastolic 44–93
[2018-11-06] MEDS: NOREPINEPHRINE 4 MG in NS (IVPB) 250 ML IV SCH ×2 (00:36→12:24)
[2018-11-06] MEDS: 1/2 NS IV SOLUTION 1,000 ML IV SCH ×3 (00:47→22:51)
--- NOTE | 2018-11-06 00:54 | OPERATIVE REPORT ---
DATE OF SERVICE: 11/05/2018 PREOPERATIVE DIAGNOSES: Gastrointestinal bleed, hematemesis. POSTOPERATIVE DIAGNOSIS: Pyloric ulcer, small hiatal hernia. PROCEDURE: EGD. SURGEON: Robert Talamantes DO ANESTHESIA: Sedation. ESTIMATED BLOOD LOSS: None. COMPLICATIONS: None. INDICATIONS: The patient is 69-year-old female with upper GI bleed, has scope yesterday and found to have pyloric ulcers. The patient had an episode of hematemesis and has been intubated. The patient's blood pressures have been on the lower side and she has also had black tarry stools. The patient was discussed risks and benefits of repeating EGD and understands risks and benefits and wishes to proceed. DESCRIPTION OF PROCEDURE: Timeout was performed. Scope was inserted into the mouth, down the esophagus, stomach, which had a large clot burden. The scope was continued to be inserted through the stomach and into the duodenum, which noting too fairly significant pyloric ulcers. The proximal one was very deep ulceration, but no active bleeding. The second one had a large clot burden over. A copious amount of irrigation was used to irrigate the pylorus and duodenum. A significant clot was present, which was unable to be removed. Power telegraphic typewriter installer was used as well, which was unable to dislodge the clot. From inspection, no active bleeding at this time. Scope was then slowly retracted back into the stomach where loss of irrigation was used to irrigate the abdomen, still a significant clot burden in the stomach, which is difficult to visualize. Scope was then retroflexed noting just a small hiatal hernia, no other pathology noted. Scope was returned to its normal position, slowly withdrawn to the distal esophagus, which had no polyps, mass or ulcerations. The scope was then slowly retracted back to completely remove. The patient tolerated the procedure well without any complications. RECOMMENDATIONS: The patient to continue to be monitored closely. The clot was able to be removed, so we will continue to watch for evidence of continued bleeding. Family was discussed the possible need for repeating EGD or other intervention. Continue with medical management. Job ID: [id number] DocumentID: [id number] Dictated Date: 11/05/2018 23:53:04 Rpg Programmer Analyst Date: 11/06/2018 00:53:31 Dictated By: ROBERT TALAMANTES DO MTDD
[2018-11-06 00:55] LABS: HEMOGLOBIN 9.3 G/DL (11.5-16.0)
--- NOTE | 2018-11-06 01:04 | OPERATIVE REPORT ---
DATE OF SERVICE: 11/05/2018 PREOPERATIVE DIAGNOSIS: Upper GI bleed. POSTOPERATIVE DIAGNOSES: Bleeding pyloric ulcer, small hiatal hernia. PROCEDURE: EGD with injection of epinephrine, total of 8 mL of 1 mg per mL with 9 mL of saline. SURGEON: William Talamantes DO. ANESTHESIA: Sedation. ESTIMATED BLOOD LOSS: Minimal. COMPLICATIONS: None. INDICATIONS: The patient is a 78-year-old female who was scoped earlier. The patient continued to have hypotension despite blood products. She is having increasing tarry black stools. The patient has been more on the hypotensive side and requiring Levophed. The patient currently on octreotide and Protonix drips. Discussed risks and benefits of procedure with who wished to proceed with procedure. Consent was signed and on the chart. DESCRIPTION OF PROCEDURE: The patient is already intubated and sedated. Timeout was performed. Scope was inserted in mouth, down the esophagus, stomach and into the duodenum. There are ulcers were visualized. The distal portion of the duodenum had normal appearance. No active bleeding. Scope was slowly retracted back ulcers were visualized and more proximal ulcer had some generalized oozing from around the ulcer and also one area within the ulcer as well. Where the oozing was coming from, epinephrine was injected in multiple sites with a total of 8 mL being used. The area was irrigated again with copious amounts of irrigation. No active bleeding at this time after injections. Scope was then slowly retracted back into the stomach where Joshua net was used to evacuate all the clots in the stomach. This was also irrigated and suctioned multiple times. As clots were being removed., the scope was withdrawn with Joshua net removing the clots and then reinserting and continuing to do multiple retrievals. Once all the clot was evacuated, the stomach where it was further inspected noting no active bleeding within the stomach. Scope was retroflexed noting a small hiatal hernia, no other pathology. After this was all evacuated and suction, scope was reinserted to the pylorus and the ulcers were again visualized and hemostasis had been achieved at this time. Scope was then slowly retracted back into the stomach and then withdrawn to the distal esophagus, which had normal appearance, no polyps, mass or ulcerations. The scope was then slowly retracted back to completely remove. The patient tolerated procedure well without any complications. The patient continued in the ICU. We will continue with transfusion was needed. Continued follow up for any new signs of bleeding. Also discussed with the patient's , other options for intervention of endoscopic interventions not working. Job ID: [id number] DocumentID: [id number] Dictated Date: 11/05/2018 23:57:39 Health Unit Clerk Date: 11/06/2018 01:04:07 Dictated By: DO MELISSA PAINTING
[2018-11-06] MEDS: NS IV 500 ML 500 ML IV SCH (01:10)
[2018-11-06 03:37] LABS: BASOPHILS % (AUTO) 0 % (0-10); EOSINOPHILS % (AUTO) 0 % (0-10); HEMATOCRIT 26 % (35-52); HEMOGLOBIN 9.2 G/DL (11.5-16.0); LYMPHOCYTES # (AUTO) 1.5 X 10^3 (1.0-4.0); LYMPHOCYTES % (AUTO) 13 % (12-44); MEAN CORPUSCULAR HEMOGLOBIN 30 PG (25-34); MEAN CORPUSCULAR HGB CONC 35 G/DL (32-36); MEAN CORPUSCULAR VOLUME 87 FL (80-99); MEAN PLATELET VOLUME 10.1 FL (7.4-10.4); MONOCYTES # (AUTO) 0.9 X 10^3 (0.0-1.0); MONOCYTES % (AUTO) 8 % (0-12); NEUTROPHILS # (AUTO) 9.5 X 10^3 (1.8-7.8); NEUTROPHILS % (AUTO) 80 % (42-75); PLATELET COUNT 153 10^3/uL (130-400); RED CELL DISTRIBUTION WIDTH 14.8 % (10.0-14.5); WHITE BLOOD COUNT 11.9 10^3/uL (4.3-11.0)
[2018-11-06 03:39] LABS: ABG BASE EXCESS -6.2 MMOL/L (-2.5-2.5); ABG OXYGEN SATURATION 97 % (94-100); ABG PCO2 33 MMHG (35-45); ABG PH 7.36 (7.37-7.43); ABG PO2 70 MMHG (79-93)
[2018-11-06 03:40] LABS: ALLENS TEST ART LINE; INSPIRED O2 30%
[2018-11-06 03:41] LABS: PATIENT TEMP 99.3; VENTILATOR YES
[2018-11-06 03:52] LABS: BUN/CREATININE RATIO 34; CALCIUM 7.5 MG/DL (8.5-10.1); CARBON DIOXIDE 16 MMOL/L (21-32); CHLORIDE 116 MMOL/L (98-107); CREATININE SERUM 0.76 MG/DL (0.60-1.30); GFR ESTIMATED > 60; GLUCOSE 294 MG/DL (70-105); MAGNESIUM 1.8 MG/DL (1.8-2.4); PHOSPHORUS 2.5 MG/DL (2.3-4.7); SODIUM 141 MMOL/L (135-145)
[2018-11-06] MEDS: MAGNESIUM 1 GM/100 ML IVPB 100 ML IV SCH (04:15)
[2018-11-06] MEDS: POTASSIUM CL 10MEQ/50ML IVPB 50 ML IV SCH (04:15)
[2018-11-06] MEDS: KCL 20 MEQ TAB (K-DUR) PO SCH (04:16)
[2018-11-06] MEDS: VITAMIN D3 1,000 UNITS (CHOLECALCIFEROL) TABLET PO SCH (04:16)
[2018-11-06] MEDS: CALCIUM CARB + VIT D 600 MG (CALCARB + D) TAB PO SCH (04:16)
[2018-11-06] MEDS: MULTIVIT W/MINERALS TAB (THERAGRAN M) PO SCH (04:16)
[2018-11-06] MEDS: FOLIC ACID 1 MG TAB PO SCH (04:16)
[2018-11-06] MEDS: SUCRALFATE 1 GM (CARAFATE) TAB PO SCH ×4 (05:00→21:00)
[2018-11-06] MEDS: inSUlin ASPART (NovoLOG) 1 UNIT/0.01 ML (CHARGE PER UNIT) SC SCH ×4 (05:01→22:06)
[2018-11-06] MEDS: PROPOFOL DRIP (ICU) 100 ML IV SCH ×3 (05:14→22:07)
--- NOTE | 2018-11-06 05:47 | Pulmonary Progress Note ---
Subjective Time Seen by a Provider: 05:56 Subjective/Events-last exam Pt intubated and sedated on vent. She was intubated yesterday. Sepsis Event Evaluation Height, Weight, BMI Height: 5'2.00" Weight: 143lbs. 0.0oz. [id number]; 22.3 BMI Method:Actual Exam Exam Vital Signs Date Time Temp Pulse Resp B/P (MAP) Pulse Ox O2 Delivery O2 Flow Rate FiO2 11/06/18 05:14 117/58 Mechanical Ventilator 30.00 11/06/18 05:00 112 54 117/58 (77) 98 Mechanical Ventilator 30.00 11/06/18 04:09 113 19 97 30 11/06/18 04:00 113 25 134/57 (82) 97 Mechanical Ventilator 30.00 11/06/18 03:15 97 Mechanical Ventilator 30 11/06/18 03:10 99.8 112 18 98 Mechanical Ventilator 30.00 11/06/18 03:00 111 18 130/64 (86) 98 Mechanical Ventilator 30.00 11/06/18 02:00 114 18 110/57 (74) 97 Mechanical Ventilator 30.00 11/06/18 01:54 113 20 97 30 11/06/18 01:00 112 20 119/65 (83) 96 Mechanical Ventilator 30.00 11/06/18 01:00 112 11/06/18 00:54 103/54 (70) 11/06/18 00:12 Mechanical Ventilator 30.00 11/06/18 00:11 108 20 99 30 11/06/18 00:10 Mechanical Ventilator 30.00 11/06/18 00:00 99.7 110 19 114/46 (68) 99 Mechanical Ventilator 50.00 11/05/18 23:15 98 Mechanical Ventilator 50 11/05/18 23:00 111 19 114/48 (70) 99 Mechanical Ventilator 50.00 11/05/18 22:51 99.2 109 16 102/45 98 Mechanical Ventilator 50 11/05/18 22:18 109 24 99 50 11/05/18 22:00 107 21 118/52 (74) 98 Mechanical Ventilator 50.00 11/05/18 21:00 108 26 101/45 (63) 96 Mechanical Ventilator 50.00 11/05/18 20:50 98.2 108 22 106/50 98 Mechanical Ventilator 50 11/05/18 20:33 98.1 101 16 132/63 98 Mechanical Ventilator 50 11/05/18 20:03 Mechanical Ventilator 50.00 11/05/18 20:00 102 27 100/46 (64) 98 Mechanical Ventilator 50.00 11/05/18 20:00 98 Mechanical Ventilator 50 11/05/18 19:55 101 19 96 50 11/05/18 19:40 98.4 101 16 124/51 (75) 99 Mechanical Ventilator 50.00 11/05/18 19:00 105 23 106/48 (67) 97 Mechanical Ventilator 60.00 11/05/18 19:00 105 11/05/18 18:36 104 25 100 50 11/05/18 18:00 103 24 117/53 (74) 99 Mechanical Ventilator 60.00 11/05/18 17:00 101 14 116/53 (74) 98 Mechanical Ventilator 60.00 11/05/18 16:05 93 26 100 80 11/05/18 16:00 93 20 96/53 (67) 100 Mechanical Ventilator 90.00 11/05/18 16:00 100 Mechanical Ventilator 90 11/05/18 15:00 93 18 100/53 (69) 100 Mechanical Ventilator 100.00 11/05/18 14:57 95 16 100 80 11/05/18 14:55 96.9 95 12 100 Mechanical Ventilator 90 11/05/18 14:00 99 25 155/67 (96) 100 Mechanical Ventilator 100.00 11/05/18 13:00 102 11/05/18 13:00 101 16 104/60 (75) High Flow N/C 6.00 11/05/18 12:55 95 Mechanical Ventilator 100 11/05/18 12:30 95 16 100 100 11/05/18 12:00 94 31 105/54 (71) High Flow N/C 6.00 11/05/18 11:59 110 11/05/18 11:00 105 35 98/62 (74) High Flow N/C 6.00 11/05/18 10:34 97.4 96 93/68 11/05/18 10:05 97.2 95 28 95/56 11/05/18 10:00 93 26 95/56 (69) 100 High Flow N/C 6.00 11/05/18 08:21 100 Nasal Cannula 5.00 11/05/18 08:15 95 High Flow N/C 3.00 11/05/18 08:00 98 26 102/74 (83) 99 High Flow N/C 6.00 11/05/18 07:00 96 11/05/18 07:00 93 23 96/53 (67) 100 High Flow N/C 6.00 11/05/18 06:00 86 33 94/58 (70) 100 High Flow N/C 6.00 I & O 11/06/18 07:00 Intake Total 2024 ml Output Total 1375 ml Balance 649 ml Height & Weight Height: 5'2.00" Weight: 143lbs. 0.0oz. [id number]; 22.3 BMI Method:Actual General Appearance: Chronically ill, Thin, Other (intubated sedated) HEENT: PERRL/EOMI, Normal ENT Inspection, Pharynx Normal, Moist Mucous Membranes, Pale Conjunctivae (R) Neck: Full Range of Motion, Normal Inspection, Non Tender Respiratory: Normal Breath Sounds, No Accessory Muscle Use, No Respiratory Distress Cardiovascular: Regular Rate, Rhythm Capillary Refill: Less Than 3 Seconds Gastrointestinal: soft, no organomegaly, no pulsatile mass Extremity: Normal Capillary Refill, Normal Inspection, Normal Range of Motion, Non Tender, No Calf Tenderness, No Pedal Edema Neurologic/Psychiatric: No Motor/Sensory Deficits, Normal Mood/Affect Skin: Warm/Dry, Pallor Lymphatic: No Adenopathy Results Lab Laboratory Tests 11/04/18 06:15 11/04/18 15:15 11/05/18 00:26 11/05/18 03:07 11/05/18 11:57 11/05/18 15:54 11/06/18 00:08 11/06/18 03:25 Assessment/Plan Assessment/Plan Acute respiratory failure -Pt was intubated yesterday -Labs and CXR reviewed Metabolic acidosis -Give 2 amps of Bicarb Acute GIB - with PUD - -S/p EGD x 2 -Talamantes repeated EGD yesterday and injected sites of bleeding. -Surgery following -Protonix gtt, Octreotide gtt -IVF -H&H Q6 Anemia s/p 9 units PRBC, 1 unit of platelets and 2 FFP -Monitor -S/p EGD x2 Hypernatremia -monitor -improving Hypotension -Pt is still on levophed -Monitor -Give 1 liter of LR Left sided rib fractures s/p fall 2 mo ago -IS -Fall risk Pulmonary infiltrate -Monitor for now Small left pleural effusion -Monitor ARJUN MEADE DO Nov 06, 2018 05:47
[2018-11-06] MEDS ORDERED: LACTATED RINGERS 1,000 ML IV SCH (06:00)
[2018-11-06] MEDS ORDERED: SODIUM BICARB 8.4% 50 MEQ/50 ML (ABBOTT) SYR IV ONE (06:00)
[2018-11-06] MEDS: NS IV 1000 ML 1,000 ML IV SCH ×2 (08:45→18:47)
[2018-11-06] MEDS: OCTREOTIDE INJECTION 500 MCG in NS (IVPB) 99 ML IV SCH ×2 (08:46→18:54)
--- NOTE | 2018-11-06 09:07 | Diagnostic Imaging Report ---
INDICATION: Dyspnea. COMPARISON is made to prior examination of 11/05/2018. FINDINGS: There are bibasilar infiltrates and a left pleural effusion. Heart size is unchanged. No pneumothorax. The mediastinum is unremarkable. Lines and tubes are in satisfactory positions. IMPRESSION: Persistent bibasilar pulmonary infiltrates and a left pleural effusion. Dictated by: Dictated on workstation # [id number]
--- NOTE | 2018-11-06 09:44 | Progress Note-Hospitalist ---
Subjective HPI/CC On Admission Date Seen by Provider: Nov 06, 2018 Time Seen by Provider: 09:15 CC: GI Bleed HPI: This is a 78-year-old white female who sees Dr. Ruggiero who presented to the [place] ER with hematemesis and melena and hematochezia. She was not maintained on any blood thinners anticoagulation studies were normal and had never had a GI bleed before. Repeat hemoglobin was 5.8 patient was given 2 units of packed red blood cells and Dr. Bautista was consulted. Patient had no significant decompensation during the hospital stay in the ICU or she was admitted to due to severe GI bleed. Dr. Lozada was consulted. She will have EGD and colonoscopy tomorrow by Dr. Bautista. [place] but now I hear she's from medical [place] in [place] where she was on skilled care so unsure if she is confused or just a temporary stay at [facility] but I would assume she would've told me she was from a detention where she lives currently. Subjective/Events-last exam Patient had 2 upper endoscopies yesterday after bleeding had continued. The patient then became mottled and hypotensive and acidotic requiring intubation and pressor support. Dr. Talamantes was able to inject the pyloric ulcers with decreased bleeding. The patient is much more stable today is on minimum levofed , hemoglobin has stabilized and rate of bleeding has decreased. The patient is sedated and intubated. Objective Exam Vital Signs Vital Signs Date Time Temp Pulse Resp B/P (MAP) Pulse Ox O2 Delivery O2 Flow Rate FiO2 11/06/18 09:00 103 16 122/63 (82) 98 Mechanical Ventilator 30.00 11/06/18 06:23 30 11/06/18 03:10 99.8 Capillary Refill : Greater Than 3 SecondsLess Than 3 Seconds General Appearance: Chronically ill, Thin, Other (intubated sedated) HEENT: PERRL/EOMI, Normal ENT Inspection, Pharynx Normal, Moist Mucous Membranes, Pale Conjunctivae (R) Neck: Full Range of Motion, Normal Inspection, Non Tender Respiratory: Normal Breath Sounds, No Accessory Muscle Use, No Respiratory Distress Cardiovascular: Regular Rate, Rhythm Gastrointestinal: Normal Bowel Sounds, No Organomegaly, No Pulsatile Mass, Non Tender, Soft Back: Normal Inspection, No CVA Tenderness, No Vertebral Tenderness Extremity: Normal Capillary Refill, Normal Inspection, Normal Range of Motion, Non Tender, No Calf Tenderness, No Pedal Edema Neurologic/Psychiatric: No Motor/Sensory Deficits, Normal Mood/Affect Skin: Warm/Dry, Pallor Lymphatic: No Adenopathy Results/Procedures Lab Laboratory Tests 11/05/18 11:57 11/05/18 15:54 11/06/18 00:08 11/06/18 03:25 Patient resulted labs reviewed. Imaging: Reviewed Imaging Report Assessment/Plan Assessment and Plan Assess & Plan/Chief Complaint 1. Upper G I bleeding secondary to pyloric ulcers 2-still with active bleeding -on Protonix and octreotide-status post EGD and injection 2. Rheumatoid arthritis with a history of being on methotrexate-currently being held 3. Type II diabetes-with hyperglycemia 4. Mild dementia 5. Anemia secondary to rapid blood loss 6. Hypomagnesemia will replace 7. Respiratory failure secondary to massive blood transfusions currently intubated in stable 8. Acidosis most likely secondary to hypotension and critical illness Prognosis is improved today from yesterday but remains guarded and critical Critical Care Critically Ill Patient Clinical Quality Measures DVT/VTE Risk/Contraindication: Risk Factor Score Per Nursin RFS Level Per Nursing on Admit: 4+=Very High Contraindications-Pharm: Other *list below* Other: gi bleed KVNG HERNÁNDEZ MD Nov 06, 2018 09:44
[2018-11-06] MEDS: PANTOPRAZOLE INJECTION 200 MG in NS (IVPB) 100 ML IV SCH (10:16)
[2018-11-06 10:27] LABS: HEMOGLOBIN 8.8 G/DL (11.5-16.0)
--- NOTE | 2018-11-06 13:42 | NUR ---
PER DR MARSH, HE DOES NOT WANT TO START TUBE FEEDINGS TODAY.
--- NOTE | 2018-11-06 14:24 | Cardiology Progress Note ---
Cardiology SOAP Progress Note Subjective: Intubated/ventilated. Objective: I&O/Vital Signs 11/06/18 11/06/18 11/06/18 11/06/18 03:00 03:10 03:15 04:00 Temp 99.8 Pulse 111 112 113 Resp 18 18 25 B/P (MAP) 130/64 (86) 134/57 (82) Pulse Ox 98 98 97 97 O2 Delivery Mechanical Ventilator Mechanical Ventilator Mechanical Ventilator Mechanical Ventilator O2 Flow Rate 30.00 30.00 30.00 FiO2 30 11/06/18 11/06/18 11/06/18 11/06/18 04:09 05:00 05:14 06:00 Pulse 113 112 112 Resp 19 54 22 B/P (MAP) 117/58 (77) 117/58 127/63 (84) Pulse Ox 97 98 98 O2 Delivery Mechanical Ventilator Mechanical Ventilator Mechanical Ventilator O2 Flow Rate 30.00 30.00 30.00 FiO2 30 11/06/18 11/06/18 11/06/18 11/06/18 06:23 07:00 07:00 08:00 Temp 99.9 Pulse 102 96 96 Resp 16 15 B/P (MAP) 101/50 (67) Pulse Ox 98 98 O2 Delivery Mechanical Ventilator O2 Flow Rate 30.00 FiO2 30 11/06/18 11/06/18 11/06/18 11/06/18 08:00 08:15 09:00 09:59 Pulse 96 103 102 Resp 16 16 17 B/P (MAP) 128/60 (82) 122/63 (82) Pulse Ox 99 97 98 98 O2 Delivery Mechanical Ventilator Mechanical Ventilator Mechanical Ventilator O2 Flow Rate 30.00 30.00 FiO2 30 30 11/06/18 11/06/18 11/06/18 11/06/18 10:00 10:06 11:00 12:00 Temp 98.6 Pulse 103 96 92 Resp 15 16 16 B/P (MAP) 121/61 (81) 119/57 (77) 125/55 (78) Pulse Ox 98 97 99 O2 Delivery Mechanical Ventilator Mechanical Ventilator Mechanical Ventilator O2 Flow Rate 30.00 30.00 30.00 11/06/18 11/06/18 11/06/18 11/06/18 12:17 12:31 12:38 13:00 Temp 99.2 Pulse 92 92 Resp 16 Pulse Ox 98 O2 Delivery Mechanical Ventilator FiO2 24 24 11/06/18 11/06/18 11/06/18 11/06/18 13:00 13:42 14:00 14:17 Pulse 91 93 89 91 Resp 16 16 16 B/P (MAP) 106/50 (68) 113/56 127/54 (78) Pulse Ox 95 97 97 O2 Delivery Mechanical Ventilator Mechanical Ventilator O2 Flow Rate 24.00 24.00 FiO2 24 11/06/18 00:00 Intake Total 225 ml Output Total 835 ml Balance -610 ml Weight (Pounds): 143 Weight (Ounces): 0.0 Weight (Calculated Kilograms): 64.771011 Constitutional: appears stated age, well-developed, well-nourished, other ( intubated/ventilated.) Respiratory: rhonchi, other (ventilated.) Cardiovascular: regular rate-rhythm; No irregularly irregular, No extra beats, No parasternal heave is noted, No JVD, No edema, No bradycardia, No tachycardia , No point of maximal impulse, No cardiac thrills are palpable; S1 and S2; No gallop/S3, No gallop/S4, No diastolic murmur, No systolic murmur, No friction rub, No click, No other Gastrointestional: No tender; soft; No round, No distended, No pulsatile mass, No organomegaly, No guarding, No rebound, No tenderness, No hernia, No mass, No audible bowel sounds, No abnormal bowel sounds, No abdominal bruits, No spleenomegaly, No other Extremities: No normal range of motion, No non-tender, No normal inspection, No pedal edema, No calf tenderness, No normal capillary refill, No pelvis stable , No calf tenderness, No inflammation, No pedal edema, No slow capillary refill , No swelling, No other, No abrasion, No clubbing, No cyanosis, No ecchymosis, No laceration, No no lower extremity edema bilateral, No significant edema, No tenderness, No wound Neurologic/Psychiatric: alert, oriented x 3, power is 5/5 both on sides Skin: pallor; No rash, No ulcerations Results/Procedures: Labs Laboratory Tests 11/05/18 15:54: Hemoglobin 13.0#, Hematocrit 38, Prothrombin Time 17.6H, INR Comment 1.4 11/05/18 16:13: Blood Gas Puncture Site ART LINE, Blood Gas Patient Temperature 97.6, Arterial Blood pH 7.25*L, Arterial Blood Partial Pressure CO2 26L, Arterial Blood Partial Pressure O2 284H, Arterial Blood HCO3 11*L, Arterial Blood Total CO2 11.8L, Arterial Blood Oxygen Saturation 100, Arterial Blood Base Excess -15.0L, Jackson Test YES-POS, Blood Gas Ventilator Setting YES, Blood Gas Inspired Oxygen 80% 11/05/18 21:05: Glucometer 200H 11/06/18 00:08: Hemoglobin 9.3L, Hematocrit 27L 11/06/18 03:25: White Blood Count 11.9H, Red Blood Count 3.04L, Hemoglobin 9.2L, Hematocrit 26L , Mean Corpuscular Volume 87, Mean Corpuscular Hemoglobin 30, Mean Corpuscular Hemoglobin Concent 35, Red Cell Distribution Width 14.8H, Platelet Count 153, Mean Platelet Volume 10.1, Neutrophils (%) (Auto) 80H, Lymphocytes (%) (Auto) 13 , Monocytes (%) (Auto) 8, Eosinophils (%) (Auto) 0, Basophils (%) (Auto) 0, Neutrophils # (Auto) 9.5H, Lymphocytes # (Auto) 1.5, Monocytes # (Auto) 0.9, Eosinophils # (Auto) 0.0, Basophils # (Auto) 0.0, Sodium Level 141, Potassium Level 4.0, Chloride Level 116H, Carbon Dioxide Level 16L, Anion Gap 9, Blood Urea Nitrogen 26H, Creatinine 0.76, Estimat Glomerular Filtration Rate > 60, BUN /Creatinine Ratio 34, Glucose Level 294H, Calcium Level 7.5L, Phosphorus Level 2.5, Magnesium Level 1.8 11/06/18 03:33: Blood Gas Puncture Site RIGHT RADIAL, Blood Gas Patient Temperature 99.3, Arterial Blood pH 7.36L, Arterial Blood Partial Pressure CO2 33L, Arterial Blood Partial Pressure O2 70L, Arterial Blood HCO3 18L, Arterial Blood Total CO2 19.0L, Arterial Blood Oxygen Saturation 97, Arterial Blood Base Excess -6.2L , Jackson Test ART LINE, Blood Gas Ventilator Setting YES, Blood Gas Inspired Oxygen 30% 11/06/18 10:11: Hemoglobin 8.8L, Hematocrit 25L 11/06/18 11:25: Glucose Level 196H Microbiology 11/02/18 MRSA Screen - Final, Complete MRSA not isolated A/P: Assessment/Dx: Severe GI bleeding, anemia, Severe respiratory failure Plan: Severe GI bleeding, transfusion with PRBCs, will require upper and lower GI endoscopy. Severe respiratory failure -intubated/ventilated. Echocardiogram done 11/04/2018 shows normal LV function with mild to moderate LVH , moderate to severe pulmonary hypertension. Collapsed IVC suggesting significant volume depletion. Thank you for your consultation. Please call me if you have any questions. Belinda Thrasher MD, FACP, FACC, FSCAI, FHRS, CCDS Interventional Cardiology Cardiac Electrophysiology Vascular Medicine and Endovascular Interventions Yan THRASHER MD Nov 06, 2018 2:24 pm
[2018-11-06 16:51] LABS: HEMOGLOBIN 10.5 G/DL (11.5-16.0)
--- NOTE | 2018-11-06 21:16 | Progress Note ---
Subjective Date Seen by a Provider: Nov 06, 2018 Time Seen by a Provider: 10:33 Subjective/Events-last exam Patient intubated and sedated. Minimal Levophed. Hgb minimal drop now 8.8. at bedside. Objective Exam Vital Signs Date Time Temp Pulse Resp B/P (MAP) Pulse Ox O2 Delivery O2 Flow Rate FiO2 11/06/18 19:00 104 11/06/18 18:40 104 20 96 24 11/06/18 18:00 103 16 120/64 (82) 91 Mechanical Ventilator 24.00 11/06/18 17:00 98 15 121/66 (84) 91 Mechanical Ventilator 24.00 11/06/18 16:28 Mechanical Ventilator 24 11/06/18 16:03 96 16 95 24 11/06/18 16:00 96 16 111/56 (74) 95 Mechanical Ventilator 24.00 11/06/18 15:10 98.3 11/06/18 15:00 92 16 125/57 (79) 97 Mechanical Ventilator 24.00 11/06/18 14:17 91 16 97 24 11/06/18 14:00 89 16 127/54 (78) 97 Mechanical Ventilator 24.00 11/06/18 13:42 93 113/56 11/06/18 13:00 91 16 106/50 (68) 95 Mechanical Ventilator 24.00 11/06/18 13:00 92 11/06/18 12:38 Mechanical Ventilator 24 11/06/18 12:31 92 16 98 24 11/06/18 12:17 99.2 11/06/18 12:00 92 16 125/55 (78) 99 Mechanical Ventilator 30.00 11/06/18 11:00 96 16 119/57 (77) 97 Mechanical Ventilator 30.00 11/06/18 10:06 98.6 11/06/18 10:00 103 15 121/61 (81) 98 Mechanical Ventilator 30.00 11/06/18 09:59 102 17 98 30 11/06/18 09:00 103 16 122/63 (82) 98 Mechanical Ventilator 30.00 11/06/18 08:15 97 Mechanical Ventilator 30 11/06/18 08:00 96 16 128/60 (82) 99 Mechanical Ventilator 30.00 11/06/18 08:00 99.9 11/06/18 07:00 96 11/06/18 07:00 96 15 101/50 (67) 98 Mechanical Ventilator 30.00 11/06/18 06:23 102 16 98 30 11/06/18 06:00 112 22 127/63 (84) 98 Mechanical Ventilator 30.00 11/06/18 05:14 117/58 Mechanical Ventilator 30.00 11/06/18 05:00 112 54 117/58 (77) 98 Mechanical Ventilator 30.00 11/06/18 04:09 113 19 97 30 11/06/18 04:00 113 25 134/57 (82) 97 Mechanical Ventilator 30.00 11/06/18 03:15 97 Mechanical Ventilator 30 11/06/18 03:10 99.8 112 18 98 Mechanical Ventilator 30.00 11/06/18 03:00 111 18 130/64 (86) 98 Mechanical Ventilator 30.00 11/06/18 02:00 114 18 110/57 (74) 97 Mechanical Ventilator 30.00 11/06/18 01:54 113 20 97 30 11/06/18 01:00 112 20 119/65 (83) 96 Mechanical Ventilator 30.00 11/06/18 01:00 112 11/06/18 00:54 103/54 (70) 11/06/18 00:12 Mechanical Ventilator 30.00 11/06/18 00:11 108 20 99 30 11/06/18 00:10 Mechanical Ventilator 30.00 11/06/18 00:00 99.7 110 19 114/46 (68) 99 Mechanical Ventilator 50.00 11/05/18 23:15 98 Mechanical Ventilator 50 11/05/18 23:00 111 19 114/48 (70) 99 Mechanical Ventilator 50.00 11/05/18 22:51 99.2 109 16 102/45 98 Mechanical Ventilator 50 11/05/18 22:18 109 24 99 50 11/05/18 22:00 107 21 118/52 (74) 98 Mechanical Ventilator 50.00 I & O 11/06/18 07:00 Intake Total 2024 ml Output Total 1375 ml Balance 649 ml Capillary Refill : Greater Than 3 SecondsLess Than 3 Seconds General Appearance: Chronically ill, Thin, Other (intubated sedated) HEENT: PERRL/EOMI, Normal ENT Inspection, Pharynx Normal, Moist Mucous Membranes, Pale Conjunctivae (R) Neck: Normal Inspection Respiratory: Normal Breath Sounds Cardiovascular: Regular Rate, Rhythm Gastrointestinal: soft, no organomegaly, no pulsatile mass Extremity: Normal Capillary Refill, Normal Inspection, Normal Range of Motion, Non Tender, No Calf Tenderness, No Pedal Edema Neurologic/Psychiatric: No Alert (sedated) Skin: Warm/Dry, Pallor Lymphatic: No Adenopathy Results Lab Laboratory Tests 11/06/18 00:08: Hemoglobin 9.3L, Hematocrit 27L 11/06/18 03:25: Hemoglobin 9.2L, Hematocrit 26L, White Blood Count 11.9H, Red Blood Count 3.04L , Mean Corpuscular Volume 87, Mean Corpuscular Hemoglobin 30, Mean Corpuscular Hemoglobin Concent 35, Red Cell Distribution Width 14.8H, Platelet Count 153, Mean Platelet Volume 10.1, Neutrophils (%) (Auto) 80H, Lymphocytes (%) (Auto) 13 , Monocytes (%) (Auto) 8, Eosinophils (%) (Auto) 0, Basophils (%) (Auto) 0, Neutrophils # (Auto) 9.5H, Lymphocytes # (Auto) 1.5, Monocytes # (Auto) 0.9, Eosinophils # (Auto) 0.0, Basophils # (Auto) 0.0, Sodium Level 141, Potassium Level 4.0, Chloride Level 116H, Carbon Dioxide Level 16L, Anion Gap 9, Blood Urea Nitrogen 26H, Creatinine 0.76, Estimat Glomerular Filtration Rate > 60, BUN /Creatinine Ratio 34, Glucose Level 294H, Calcium Level 7.5L, Phosphorus Level 2.5, Magnesium Level 1.8 11/06/18 03:33: Blood Gas Puncture Site RIGHT RADIAL, Blood Gas Patient Temperature 99.3, Arterial Blood pH 7.36L, Arterial Blood Partial Pressure CO2 33L, Arterial Blood Partial Pressure O2 70L, Arterial Blood HCO3 18L, Arterial Blood Total CO2 19.0L, Arterial Blood Oxygen Saturation 97, Arterial Blood Base Excess -6.2L , Jackson Test ART LINE, Blood Gas Ventilator Setting YES, Blood Gas Inspired Oxygen 30% 11/06/18 10:11: Hemoglobin 8.8L, Hematocrit 25L 11/06/18 11:25: Glucose Level 196H 11/06/18 15:11: Glucometer 160H 11/06/18 16:47: Hemoglobin 10.5L, Hematocrit 30L Microbiology 11/02/18 MRSA Screen - Final, Complete MRSA not isolated Assessment/Plan Assessment/Plan Assessment/Plan hematemesis melena upper gi bleed pyloric ulcers patient with pyloric ulcers had 2 egd and last one with injections of epinephrine to pyloric bleeding areas she is intubated and sedated at this time on protonix and octreotide follow hgb transfuse as needed by massive transfusion protocol don't feel need to reexamine area at this time endoscopically, continue medical management still critical Clinical Quality Measures DVT/VTE Risk/Contraindication: Risk Factor Score Per Nursin RFS Level Per Nursing on Admit: 4+=Very High Contraindications-Pharm: Other *list below* Other: gi bleed ROBERT MARSH DO Nov 06, 2018 21:16
[2018-11-06 22:01] LABS: HEMOGLOBIN 9.4 G/DL (11.5-16.0)
[2018-11-06] MEDS: ATENOLOL 25 MG (TENORMIN) TAB PO SCH (22:06)
[2018-11-07] VITALS (30 sets, daily range): BP systolic 71–163; BP diastolic 45–86
[2018-11-07] MEDS: NOREPINEPHRINE 4 MG in NS (IVPB) 250 ML IV SCH (01:04)
[2018-11-07 03:59] LABS: ABG BASE EXCESS -2.6 MMOL/L (-2.5-2.5); ABG OXYGEN SATURATION 96 % (94-100); ABG PCO2 35 MMHG (35-45); ABG PH 7.41 (7.37-7.43); ABG PO2 75 MMHG (79-93); ABG TCO2 22.3 MMOL/L (21.0-31.0)
[2018-11-07 04:00] LABS: ALLENS TEST YES-POS; INSPIRED O2 30%; PATIENT TEMP 99.3; VENTILATOR YES
[2018-11-07] MEDS: NS IV 1000 ML 1,000 ML IV SCH ×2 (04:30→21:40)
[2018-11-07 04:41] LABS: BASOPHILS % (AUTO) 0 % (0-10); EOSINOPHILS # (AUTO) 0.1 10^3/uL (0.0-0.3); EOSINOPHILS % (AUTO) 1 % (0-10); HEMATOCRIT 24 % (35-52); HEMOGLOBIN 7.9 G/DL (11.5-16.0); LYMPHOCYTES # (AUTO) 0.8 X 10^3 (1.0-4.0); LYMPHOCYTES % (AUTO) 7 % (12-44); MEAN CORPUSCULAR HEMOGLOBIN 30 PG (25-34); MEAN CORPUSCULAR HGB CONC 33 G/DL (32-36); MEAN CORPUSCULAR VOLUME 91 FL (80-99); MEAN PLATELET VOLUME 9.3 FL (7.4-10.4); MONOCYTES # (AUTO) 0.8 X 10^3 (0.0-1.0); MONOCYTES % (AUTO) 7 % (0-12); NEUTROPHILS # (AUTO) 9.4 X 10^3 (1.8-7.8); NEUTROPHILS % (AUTO) 85 % (42-75); PLATELET COUNT 137 10^3/uL (130-400); RED CELL DISTRIBUTION WIDTH 17.9 % (10.0-14.5); WHITE BLOOD COUNT 11.1 10^3/uL (4.3-11.0)
[2018-11-07 05:03] LABS: BUN/CREATININE RATIO 28; CALCIUM 7.5 MG/DL (8.5-10.1); CARBON DIOXIDE 21 MMOL/L (21-32); CHLORIDE 113 MMOL/L (98-107); CREATININE SERUM 0.57 MG/DL (0.60-1.30); GFR ESTIMATED > 60; GLUCOSE 117 MG/DL (70-105); MAGNESIUM 1.5 MG/DL (1.8-2.4); PHOSPHORUS 2.4 MG/DL (2.3-4.7); POTASSIUM 3.5 MMOL/L (3.6-5.0); SODIUM 143 MMOL/L (135-145)
[2018-11-07] MEDS: OCTREOTIDE INJECTION 500 MCG in NS (IVPB) 99 ML IV SCH ×2 (05:09→23:50)
[2018-11-07] MEDS: POTASSIUM CL 10MEQ/50ML IVPB 50 ML IV SCH ×3 (05:10→05:29)
[2018-11-07] MEDS: MAGNESIUM 1 GM/100 ML IVPB 100 ML IV SCH ×3 (05:10→05:29)
[2018-11-07] MEDS: KCL 20 MEQ TAB (K-DUR) PO SCH (05:10)
[2018-11-07] MEDS: SUCRALFATE 1 GM (CARAFATE) TAB PO SCH ×4 (05:11→22:25)
[2018-11-07] MEDS: inSUlin ASPART (NovoLOG) 1 UNIT/0.01 ML (CHARGE PER UNIT) SC SCH ×4 (05:29→22:31)
[2018-11-07] MEDS: FOLIC ACID 1 MG TAB PO SCH (05:29)
[2018-11-07] MEDS: CALCIUM CARB + VIT D 600 MG (CALCARB + D) TAB PO SCH (05:29)
[2018-11-07] MEDS: VITAMIN D3 1,000 UNITS (CHOLECALCIFEROL) TABLET PO SCH (05:29)
[2018-11-07] MEDS: MULTIVIT W/MINERALS TAB (THERAGRAN M) PO SCH (05:30)
[2018-11-07] MEDS: 1/2 NS IV SOLUTION 1,000 ML IV SCH (05:37)
[2018-11-07] MEDS: PROPOFOL DRIP (ICU) 100 ML IV SCH ×3 (05:38→23:13)
[2018-11-07] MEDS ORDERED: FUROSEMIDE 40 MG/4 ML INJ (LASIX) IVP NR (07:00)
[2018-11-07] MEDS ORDERED: POTASSIUM CL 10MEQ/50ML IVPB 50 ML IV SCH (07:00)
[2018-11-07] MEDS ORDERED: ALBUMIN 25% 25 GM/100 ML 100 ML IV NR (07:03)
[2018-11-07] MEDS ORDERED: 1/2 NS W/KCL 20 MEQ/L 1,000 ML IV SCH (07:15)
--- NOTE | 2018-11-07 07:54 | Diagnostic Imaging Report ---
INDICATION: Dyspnea. COMPARISON: 11/06/2018 FINDINGS: Single frontal radiographic view of the chest was obtained and demonstrates indwelling endotracheal tube with tip below the clavicular heads and above the maikel. Gastric tube is seen and extends inferiorly beyond the [id number]. Lungs continue to show small bibasilar effusions, left greater than right. There is also associated patchy and confluent bibasilar airspace disease. Overall, aeration has not significantly changed when compared to prior exam. No pneumothorax is seen on either side. Left-sided subclavian central line is also noted in stable position. Cardiac silhouette and pulmonary vasculature unchanged. IMPRESSION: 1. Stable exam of the chest showing small bibasilar effusions with associated atelectasis and/or infiltrate, left greater than right. 2. Lines and tubes as above. Dictated by: Dictated on workstation # [id number]
--- NOTE | 2018-11-07 09:10 | Physical Therapy Progress Note ---
Therapy Progress Note Pt is currently intubated. Will check pt tomorrow. SALLY CENTENO PT Nov 07, 2018 09:10
--- NOTE | 2018-11-07 11:20 | NUR ---
Pt still on vent, contacted at bedside, talked at length sharing much of his life story and his life journey with pt. provided listening and support and prayer.
[2018-11-07] MEDS: PANTOPRAZOLE INJECTION 200 MG in NS (IVPB) 100 ML IV SCH ×2 (12:47→21:28)
[2018-11-07 12:48] LABS: HEMOGLOBIN 7.4 G/DL (11.5-16.0)
--- NOTE | 2018-11-07 14:06 | Occ Therapy Progress Note ---
Therapy Progress Note Pt is currently intubated. OT will need new orders to see patient secondary to change in status. NSG notified. ANGELY CHOUDHURY OT Nov 07, 2018 14:06
[2018-11-07 14:56] LABS: HEMOGLOBIN 4.7 G/DL (11.5-16.0)
[2018-11-07] MEDS ORDERED: NS (IVPB) 100 ML ONE ×3 (15:41→23:41)
[2018-11-07] MEDS ORDERED: VASOPRESSIN INJECTION 20 UNIT/ML VIAL ONE (15:41)
[2018-11-07] MEDS: LACTATED RINGERS 1,000 ML IV PRN ×2 (16:08→17:00)
--- NOTE | 2018-11-07 16:08 | Pulmonary Progress Note ---
Standard Progress Note Progress Notes Date Seen by Provider: Nov 07, 2018 Time Seen by Provider: 03:00 Called to Bedside by RN secondary to hypotension, tachycardia and BRB per OG. RN Called Dr. Bautista however he is in [place] today. I called Dr. Talamantes who responded to bedside. PT has 2 units of blood pending. Assessment & Plan Acute respiratory failure -Pt was intubated yesterday -Labs and CXR reviewed Metabolic acidosis -Give 2 amps of Bicarb Acute severe GIB - with PUD - -Dr. Talamantes is taking pt to surgery. -He repeat EGD at bedside however there is to much blood. He is going to take pt to surgery. -S/p EGD x 2 -Albin repeated EGD yesterday and injected sites of bleeding. -Surgery following -Protonix gtt -H&H Q6 Anemia s/p 9 units PRBC, 1 unit of platelets and 2 FFP -Monitor -S/p EGD x2 Hypernatremia -monitor -improving Hypotension -Pt is still on levophed -Monitor -Give 1 liter of LR Left sided rib fractures s/p fall 2 mo ago -IS -Fall risk Pulmonary infiltrate -Monitor for now Small left pleural effusion -Monitor I have discussed pt's treatment plan with RN, Dr. Bautista, and Dr. Talamantes. Time spent with patient not including this morning's exam is 60min ICU time. Critical Care: Critically Ill Patient Time spent with patient (mins): 60 ARJUN MEADE DO Nov 07, 2018 16:08
--- NOTE | 2018-11-07 16:21 | NUR ---
TIME LINE NOTE 1425 CALLED TO PATIENT ROOM D/T TACHYCARDIA, NOTED BRIGHT RED BLOOD IN PT OG TUBE, SUCTION TURNED OFF AT THIS TIME [address] BHATT NEW ORDER FOR 2L NS BOLUS 2UNITS PRBC 1434 LEVO INCREASED TO 0.3 1434 BLOOD BANK CALLED 1445 HALINA STAT H&H, DRAWN AT THIS TIME VIA CENTRAL LINE 1450 BLOOD ARRIVED FROM BLOOD BANK 1457 BLOOD INITIATED, HGB RESULTS 4.7 1500 MASS TRANSFUSION PROTOCOL INITIATED, RECEIVED TELEPHONE CONSENT FROM FOR EGD 1505 LEVO INCREASED TO 0.5 1511 ANESTHESIA AT BEDSIDE, ENDO SETTING UP FOR PROCEDURE 1515 EGD STARTED 1522 EGD ENDED PT TO GO TO OR 1535 2ND UNIT STARTED 1546 2ND UNIT ENDED 1550 PATIENT TRANSPORTED TO OR
[2018-11-07] MEDS ORDERED: PHENYLEPHRINE 100 MCG/ML 10 ML (ANESTHESIA) SYR ONE ×2 (16:29→19:58)
[2018-11-07] MEDS ORDERED: ceFAZolin INJECTION 1,000 MG ONE (16:31)
--- NOTE | 2018-11-07 16:59 | Cardiology Progress Note ---
Cardiology SOAP Progress Note Subjective: Intubated/ventilated. Objective: I&O/Vital Signs 11/07/18 11/07/18 11/07/18 11/07/18 05:00 05:38 06:00 06:37 Pulse 100 93 92 Resp 17 16 16 B/P (MAP) 106/55 (72) 123/68 123/59 (80) Pulse Ox 94 95 94 O2 Delivery Mechanical Ventilator Mechanical Ventilator O2 Flow Rate 30.00 30.00 FiO2 30 11/07/18 11/07/18 11/07/18 11/07/18 07:00 07:00 07:35 08:00 Temp 99.2 Pulse 92 92 101 Resp 16 20 B/P (MAP) 130/59 (82) 127/66 (86) Pulse Ox 96 96 O2 Delivery Mechanical Ventilator Mechanical Ventilator O2 Flow Rate 30.00 30.00 11/07/18 11/07/18 11/07/18 11/07/18 08:11 11:16 12:45 12:46 Temp 98.7 Pulse 101 Resp 23 Pulse Ox 95 100 95 O2 Delivery Mechanical Ventilator Mechanical Ventilator FiO2 30 30 30 11/07/18 11/07/18 13:39 13:52 Pulse 110 103 Resp 28 Pulse Ox 100 FiO2 30 11/07/18 00:00 Intake Total 454 ml Output Total 645 ml Balance -191 ml Weight (Pounds): 153 Weight (Ounces): 0.0 Weight (Calculated Kilograms): 69.447625 Constitutional: appears stated age, well-developed, well-nourished, other ( intubated/ventilated.) Respiratory: rhonchi, other (ventilated.) Cardiovascular: regular rate-rhythm; No irregularly irregular, No extra beats, No parasternal heave is noted, No JVD, No edema, No bradycardia, No tachycardia , No point of maximal impulse, No cardiac thrills are palpable; S1 and S2; No gallop/S3, No gallop/S4, No diastolic murmur, No systolic murmur, No friction rub, No click, No other Gastrointestional: No tender; soft; No round, No distended, No pulsatile mass, No organomegaly, No guarding, No rebound, No tenderness, No hernia, No mass, No audible bowel sounds, No abnormal bowel sounds, No abdominal bruits, No spleenomegaly, No other Extremities: No normal range of motion, No non-tender, No normal inspection, No pedal edema, No calf tenderness, No normal capillary refill, No pelvis stable , No calf tenderness, No inflammation, No pedal edema, No slow capillary refill , No swelling, No other, No abrasion, No clubbing, No cyanosis, No ecchymosis, No laceration, No no lower extremity edema bilateral, No significant edema, No tenderness, No wound Neurologic/Psychiatric: alert, oriented x 3, power is 5/5 both on sides Skin: pallor; No rash, No ulcerations Results/Procedures: Labs Laboratory Tests 11/06/18 21:58: Hemoglobin 9.4L, Hematocrit 28L 11/06/18 23:33: Glucometer 117H 11/07/18 03:50: Blood Gas Puncture Site RIGHT RADIAL, Blood Gas Patient Temperature 99.3, Arterial Blood pH 7.41, Arterial Blood Partial Pressure CO2 35, Arterial Blood Partial Pressure O2 75L, Arterial Blood HCO3 21L, Arterial Blood Total CO2 22.3 , Arterial Blood Oxygen Saturation 96, Arterial Blood Base Excess -2.6L, Jackson Test YES-POS, Blood Gas Ventilator Setting YES, Blood Gas Inspired Oxygen 30% 11/07/18 04:35: Hemoglobin 7.9L, Hematocrit 24L, White Blood Count 11.1H, Red Blood Count 2.66L , Mean Corpuscular Volume 91, Mean Corpuscular Hemoglobin 30, Mean Corpuscular Hemoglobin Concent 33, Red Cell Distribution Width 17.9H, Platelet Count 137, Mean Platelet Volume 9.3, Neutrophils (%) (Auto) 85H, Lymphocytes (%) (Auto) 7L , Monocytes (%) (Auto) 7, Eosinophils (%) (Auto) 1, Basophils (%) (Auto) 0, Neutrophils # (Auto) 9.4H, Lymphocytes # (Auto) 0.8L, Monocytes # (Auto) 0.8, Eosinophils # (Auto) 0.1, Basophils # (Auto) 0.0, Sodium Level 143, Potassium Level 3.5L, Chloride Level 113H, Carbon Dioxide Level 21, Anion Gap 9, Blood Urea Nitrogen 16, Creatinine 0.57L, Estimat Glomerular Filtration Rate > 60, BUN /Creatinine Ratio 28, Glucose Level 117H, Calcium Level 7.5L, Phosphorus Level 2.4, Magnesium Level 1.5L 11/07/18 11:43: Glucometer 165H 11/07/18 12:35: Hemoglobin 7.4L, Hematocrit 23L 11/07/18 12:47: Lab Scanned Report Transfusion Reaction Form 11/07/18 14:45: Hemoglobin 4.7#*L, Hematocrit 15*L Microbiology 11/02/18 MRSA Screen - Final, Complete MRSA not isolated A/P: Assessment/Dx: Severe GI bleeding, anemia, Severe respiratory failure Plan: Severe GI bleeding, transfusion with PRBCs, status post upper and lower GI endoscopy. Severe respiratory failure -intubated/ventilated. Echocardiogram done 11/04/2018 shows normal LV function with mild to moderate LVH , moderate to severe pulmonary hypertension. Collapsed IVC suggesting significant volume depletion. Sinus tachycardia Thank you for your consultation. Please call me if you have any questions. Belinda Thrasher MD, FACP, FACC, FSCAI, FHRS, CCDS Interventional Cardiology Cardiac Electrophysiology Vascular Medicine and Endovascular Interventions Yan THRASHER MD Nov 07, 2018 4:59 pm
[2018-11-07] MEDS ORDERED: morphine INJ 10 MG/ML 1ML (SYR OR VIAL) ONE (17:13)
--- NOTE | 2018-11-07 17:34 | Progress Note ---
Subjective Date Seen by a Provider: Nov 07, 2018 Time Seen by a Provider: 15:00 Subjective/Events-last exam Called to evaluate patient in ICU. Patient hyptensive, tachycardic and began having bright red blood out NG. Patient being optimized currently in the ICU. Hgb in 4 range. Objective Exam Vital Signs Date Time Temp Pulse Resp B/P (MAP) Pulse Ox O2 Delivery O2 Flow Rate FiO2 11/07/18 13:52 103 28 100 30 11/07/18 13:39 110 11/07/18 12:46 98.7 11/07/18 12:45 95 Mechanical Ventilator 30 11/07/18 11:16 101 23 100 30 11/07/18 08:11 95 Mechanical Ventilator 30 11/07/18 08:00 101 20 127/66 (86) 96 Mechanical Ventilator 30.00 11/07/18 07:35 99.2 11/07/18 07:00 92 16 130/59 (82) 96 Mechanical Ventilator 30.00 11/07/18 07:00 92 11/07/18 06:37 92 16 94 30 11/07/18 06:00 93 16 123/59 (80) 95 Mechanical Ventilator 30.00 11/07/18 05:38 123/68 11/07/18 05:00 100 17 106/55 (72) 94 Mechanical Ventilator 30.00 11/07/18 04:00 Mechanical Ventilator 30 11/07/18 04:00 99.3 11/07/18 04:00 105 17 125/62 (83) 94 Mechanical Ventilator 30.00 11/07/18 03:00 105 17 114/54 (74) 94 Mechanical Ventilator 30.00 11/07/18 02:00 105 18 135/65 (88) 95 Mechanical Ventilator 30.00 11/07/18 01:32 107 17 94 30 11/07/18 01:00 107 18 104/54 (71) 94 Mechanical Ventilator 30.00 11/07/18 01:00 107 11/07/18 00:00 114 17 129/58 (81) 93 Mechanical Ventilator 30.00 11/07/18 00:00 98.6 11/07/18 00:00 Mechanical Ventilator 30 11/06/18 23:00 116 23 126/53 (77) 91 Mechanical Ventilator 30.00 11/06/18 22:07 115 137/78 11/06/18 22:00 121 15 137/93 (108) 98 Mechanical Ventilator 30.00 11/06/18 21:55 125 37 97 30 11/06/18 21:00 103 15 101/59 (73) 90 Mechanical Ventilator 30.00 11/06/18 20:00 Mechanical Ventilator 30 11/06/18 20:00 103 16 131/64 (86) 91 Mechanical Ventilator 30.00 11/06/18 20:00 98.9 Mechanical Ventilator 30.00 11/06/18 19:00 105 15 135/64 (87) 92 Mechanical Ventilator 30.00 11/06/18 19:00 104 11/06/18 18:40 104 20 96 24 11/06/18 18:00 103 16 120/64 (82) 91 Mechanical Ventilator 24.00 I & O 11/07/18 07:00 Intake Total 2854 ml Output Total 1355 ml Balance 1499 ml Capillary Refill : Greater Than 3 SecondsLess Than 3 Seconds General Appearance: Chronically ill, Thin, Other (intubated sedated) HEENT: PERRL/EOMI, Normal ENT Inspection, Pharynx Normal, Moist Mucous Membranes, Pale Conjunctivae (R) Neck: Full Range of Motion, Normal Inspection, Non Tender Respiratory: Normal Breath Sounds, No Accessory Muscle Use, No Respiratory Distress Cardiovascular: Tachycardia Gastrointestinal: soft, no organomegaly, no pulsatile mass Extremity: Normal Capillary Refill, Normal Inspection, Normal Range of Motion, Non Tender, No Calf Tenderness, No Pedal Edema Neurologic/Psychiatric: No Alert (intubated/sedate) Skin: Cool, Pallor Lymphatic: No Adenopathy Results Lab Laboratory Tests 11/06/18 21:58: Hemoglobin 9.4L, Hematocrit 28L 11/06/18 23:33: Glucometer 117H 11/07/18 03:50: Blood Gas Puncture Site RIGHT RADIAL, Blood Gas Patient Temperature 99.3, Arterial Blood pH 7.41, Arterial Blood Partial Pressure CO2 35, Arterial Blood Partial Pressure O2 75L, Arterial Blood HCO3 21L, Arterial Blood Total CO2 22.3 , Arterial Blood Oxygen Saturation 96, Arterial Blood Base Excess -2.6L, Jackson Test YES-POS, Blood Gas Ventilator Setting YES, Blood Gas Inspired Oxygen 30% 11/07/18 04:35: Hemoglobin 7.9L, Hematocrit 24L, White Blood Count 11.1H, Red Blood Count 2.66L , Mean Corpuscular Volume 91, Mean Corpuscular Hemoglobin 30, Mean Corpuscular Hemoglobin Concent 33, Red Cell Distribution Width 17.9H, Platelet Count 137, Mean Platelet Volume 9.3, Neutrophils (%) (Auto) 85H, Lymphocytes (%) (Auto) 7L , Monocytes (%) (Auto) 7, Eosinophils (%) (Auto) 1, Basophils (%) (Auto) 0, Neutrophils # (Auto) 9.4H, Lymphocytes # (Auto) 0.8L, Monocytes # (Auto) 0.8, Eosinophils # (Auto) 0.1, Basophils # (Auto) 0.0, Sodium Level 143, Potassium Level 3.5L, Chloride Level 113H, Carbon Dioxide Level 21, Anion Gap 9, Blood Urea Nitrogen 16, Creatinine 0.57L, Estimat Glomerular Filtration Rate > 60, BUN /Creatinine Ratio 28, Glucose Level 117H, Calcium Level 7.5L, Phosphorus Level 2.4, Magnesium Level 1.5L 11/07/18 11:43: Glucometer 165H 11/07/18 12:35: Hemoglobin 7.4L, Hematocrit 23L 11/07/18 12:47: Lab Scanned Report Transfusion Reaction Form 11/07/18 14:45: Hemoglobin 4.7#*L, Hematocrit 15*L Microbiology 11/02/18 MRSA Screen - Final, Complete MRSA not isolated Assessment/Plan Assessment/Plan Assessment/Plan hematemesis melena upper gi bleed pyloric ulcers severe anemia Patient with acute bleeding from likely pyloric ulcers. Will emergently do EGD. If unable to control will need to go to OR for surgical intervention. This was communicated with the patient's who understands and wishes to proceed with EGD and Exploratory laparotomy and control of bleeding and all other indicated procedures if needed. Patient critical. Massive transfusion protocol. Protonix/Octreotide drip. Clinical Quality Measures DVT/VTE Risk/Contraindication: Risk Factor Score Per Nursin RFS Level Per Nursing on Admit: 4+=Very High Contraindications-Pharm: Other *list below* Other: gi bleed ROBERT MARSH DO Nov 07, 2018 17:34
--- NOTE | 2018-11-07 17:37 | Progress Note-Post Operative ---
Post-Operative Progess Note Surgeon (s)/Weathercaster (s) Surgeon ROBERT MARSH DO Weathercaster: none Pre-Operative Diagnosis Acute GI bleed Post-Operative Diagnosis pyloric ulcers with bleeding Procedure & Operative Findings Date of Procedure 11/07/18 Procedure Performed/Findings egd Anesthesia Type sedation Estimated Blood Loss Estimated blood loss (mL): none Specimens/Packing Specimens Removed na ROBERT MARSH DO Nov 07, 2018 17:37
[2018-11-07 17:41] LABS: HEMOGLOBIN 6.7 G/DL (11.5-16.0)
--- NOTE | 2018-11-07 17:43 | Progress Note-Post Operative ---
Post-Operative Progess Note Surgeon (s)/Utilization Specialist (s) Surgeon ROBERT MARSH DO Utilization Specialist: none Pre-Operative Diagnosis Acute GI bleed upper Post-Operative Diagnosis duodenal ulcer bleed, perforated duodenal ulcer, pyloric ulcers Procedure & Operative Findings Date of Procedure 11/07/18 Procedure Performed/Findings exploratory laparotomy, pyloromyotomy, ligation gastroduodenal artery, repair of pyloric perforation Anesthesia Type gen Estimated Blood Loss Estimated blood loss (mL): 200 mL from surgery and 1500 mL suctioned old blood Specimens/Packing Specimens Removed na Packin Fr milind drain. ROBERT MARSH DO Nov 07, 2018 17:43
[2018-11-07 17:49] LABS: PROTHROMBIN TIME PATIENT 23.2 SEC (12.2-14.7)
[2018-11-07] MEDS ORDERED: NS IV 1000 ML 1,000 ML IV PRN (18:45)
[2018-11-07] MEDS ORDERED: ROCURONIUM 10 MG/ML 5 ML SYRINGE IV ONE ×2 (19:58)
[2018-11-07] MEDS ORDERED: VASOPRESSIN 20 UNITS/NS 100 ML DRIP IV SCH ×2 (20:15)
--- NOTE | 2018-11-07 20:24 | Diagnostic Imaging Report ---
Portable chest compared to prior study from November 07, 2018 at 3:31 a.m. INDICATION: Post code with OG tube placement. FINDINGS: An enteric tube extends to the stomach. Endotracheal tube is above the maikel. A left subclavian line is unchanged. There are prior operative changes of cervical fusion. When compared to the prior study, lung volumes are diminished with increased prominence of the central pulmonary vascularity and bilateral pleural effusions. Heart size appears unchanged. Mediastinal contours appear stable with some tortuosity of the thoracic aorta. IMPRESSION: 1. Endotracheal tube is above the maikel, and the enteric tube extends to the left upper quadrant to the stomach. 2. Low lung volumes with increased central pulmonary vascular congestion and pleural effusions compared to the prior exam. Dictated by: Dictated on workstation # [id number]
[2018-11-07] MEDS: ATENOLOL 25 MG (TENORMIN) TAB PO SCH (21:26)
[2018-11-07] MEDS: fentaNYL INJECTION 100 MCG/2 ML AMP IVP PRN (21:27)
[2018-11-07 21:47] LABS: INR 1.5 (0.8-1.4); PROTHROMBIN TIME PATIENT 18.8 SEC (12.2-14.7)
[2018-11-07] MEDS ORDERED: fentaNYL (OMNICELL DRIP KIT ONLY) 250 MCG/5 ML AMP ONE (22:34)
[2018-11-07] MEDS: ceFAZolin INJECTION 1,000 MG in WATER (STERILE) FOR INJECTION 10 ML IV SCH (22:39)
[2018-11-07 23:07] LABS: HEMOGLOBIN 9.7 G/DL (11.5-16.0)
[2018-11-07 23:10] LABS: ABG BASE EXCESS -10.9 MMOL/L (-2.5-2.5); ABG OXYGEN SATURATION 93 % (94-100); ABG PCO2 31 MMHG (35-45); ABG PO2 56 MMHG (79-93); ABG TCO2 15.6 MMOL/L (21.0-31.0)
[2018-11-07 23:13] LABS: ABG PH 7.29 (7.37-7.43); ALLENS TEST YES-POS; INSPIRED O2 40%; VENTILATOR YES
[2018-11-07] MEDS: NOREPINEPHRINE 8 MG in NS (IVPB) 250 ML IV SCH (23:14)
[2018-11-07] MEDS: metroNIDAZOLE 500MG/100ML IVPB 100 ML IV SCH (23:38)
[2018-11-08] VITALS (32 sets, daily range): BP systolic 79–154; BP diastolic 49–101
[2018-11-08] MEDS: NS IV 1000 ML 1,000 ML IV SCH ×3 (00:01→20:00)
[2018-11-08] MEDS: fentaNYL 1,250 MCG/NS 250 ML DRIP IV SCH ×4 (00:09→13:32)
[2018-11-08] MEDS: inSUlin ASPART (NovoLOG) 1 UNIT/0.01 ML (CHARGE PER UNIT) SC SCH ×7 (00:14→23:48)
[2018-11-08] MEDS ORDERED: LACTATED RINGERS 500 ML IV ONE (00:15)
[2018-11-08] MEDS: OCTREOTIDE INJECTION 500 MCG in NS (IVPB) 99 ML IV SCH ×3 (00:18→17:03)
--- NOTE | 2018-11-08 00:19 | Anesthesia-Procedure Note ---
Procedures/Interventions Procedure Start/Stop/Diagnosis Date of Procedure: Nov 07, 2018 Start Time: 23:10 Referring Physician: Kierra Preprocedural Diagnosis: Needs additional IV access Brief History This patient is known to me from a recent OR visit earlier this evening. RN approached me and requested I attempt a peripheral IV. The patient has a left central line; however, due to the multiple IV gtts, she needs another line. I placed a 20g IV in her right AC prior to going to the OR around 1545. That IV has since infiltrated as patient is edematous and oozing from all extremities. I utilized ultrasound to assist in IV placement, but was unsuccessful x4 ( bilateral arms) before aborting the procedure. RN present and aware that I was unsuccessful. Stop Time: 23:59 JENNIFFER ARAMBULA CRNA Nov 08, 2018 00:19
[2018-11-08] MEDS ORDERED: NOREPINEPHRINE 4 MG/4 ML (LEVOPHED) AMP IV ONE ×2 (01:12→09:43)
[2018-11-08] MEDS: NOREPINEPHRINE 8 MG in NS (IVPB) 250 ML IV SCH ×4 (01:45→23:19)
[2018-11-08 03:21] LABS: BASOPHILS % (AUTO) 0 % (0-10); EOSINOPHILS # (AUTO) 0.4 10^3/uL (0.0-0.3); EOSINOPHILS % (AUTO) 3 % (0-10); HEMATOCRIT 28 % (35-52); HEMOGLOBIN 9.6 G/DL (11.5-16.0); LYMPHOCYTES # (AUTO) 0.6 X 10^3 (1.0-4.0); LYMPHOCYTES % (AUTO) 5 % (12-44); MEAN CORPUSCULAR HEMOGLOBIN 30 PG (25-34); MEAN CORPUSCULAR HGB CONC 35 G/DL (32-36); MEAN CORPUSCULAR VOLUME 87 FL (80-99); MEAN PLATELET VOLUME 9.7 FL (7.4-10.4); MONOCYTES # (AUTO) 0.7 X 10^3 (0.0-1.0); MONOCYTES % (AUTO) 5 % (0-12); NEUTROPHILS % (AUTO) 87 % (42-75); PLATELET COUNT 122 10^3/uL (130-400); RED CELL DISTRIBUTION WIDTH 14.5 % (10.0-14.5); WHITE BLOOD COUNT 12.7 10^3/uL (4.3-11.0)
[2018-11-08 03:22] LABS: ABG BASE EXCESS -8.6 MMOL/L (-2.5-2.5); ABG OXYGEN SATURATION 98 % (94-100); ABG PCO2 39 MMHG (35-45); ABG PO2 115 MMHG (79-93); ABG TCO2 18.4 MMOL/L (21.0-31.0)
[2018-11-08 03:23] LABS: ABG PH 7.26 (7.37-7.43); ALLENS TEST YES-POS; INSPIRED O2 45%; PATIENT TEMP 97.5; VENTILATOR YES
[2018-11-08 03:36] LABS: BUN/CREATININE RATIO 20; CARBON DIOXIDE 18 MMOL/L (21-32); CHLORIDE 116 MMOL/L (98-107); CREATININE SERUM 0.61 MG/DL (0.60-1.30); GFR ESTIMATED > 60; GLUCOSE 221 MG/DL (70-105); MAGNESIUM 1.4 MG/DL (1.8-2.4); PHOSPHORUS 2.1 MG/DL (2.3-4.7); POTASSIUM 3.4 MMOL/L (3.6-5.0); SODIUM 143 MMOL/L (135-145)
[2018-11-08] MEDS: POTASSIUM CL 10MEQ/50ML IVPB 50 ML IV SCH ×3 (03:49→04:27)
[2018-11-08] MEDS: MAGNESIUM 1 GM/100 ML IVPB 100 ML IV SCH ×3 (03:56→05:00)
[2018-11-08] MEDS: KCL 20 MEQ TAB (K-DUR) PO SCH (03:57)
[2018-11-08] MEDS: PROPOFOL DRIP (ICU) 100 ML IV SCH ×3 (03:57→14:41)
[2018-11-08] MEDS: VITAMIN D3 1,000 UNITS (CHOLECALCIFEROL) TABLET PO SCH (03:58)
[2018-11-08] MEDS: CALCIUM CARB + VIT D 600 MG (CALCARB + D) TAB PO SCH (03:58)
[2018-11-08] MEDS: MULTIVIT W/MINERALS TAB (THERAGRAN M) PO SCH (03:58)
[2018-11-08] MEDS: FOLIC ACID 1 MG TAB PO SCH (03:58)
[2018-11-08] MEDS ORDERED: D5 NS 1000 ML IV SOLUTION 1,000 ML IV ONE (04:03)
[2018-11-08] MEDS ORDERED: SODIUM BICARB 8.4% 50 MEQ/50 ML (ABBOTT) SYR ONE ×2 (04:03→04:14)
[2018-11-08] MEDS ORDERED: D5W 1000 ML IV SOLUTION 1,000 ML ONE (04:13)
[2018-11-08] MEDS: SUCRALFATE 1 GM (CARAFATE) TAB PO SCH ×4 (05:02→22:39)
[2018-11-08] MEDS ORDERED: D5W IV SCH (05:30)
[2018-11-08] MEDS ORDERED: SODIUM BICARBONATE IV SCH (05:30)
--- NOTE | 2018-11-08 05:37 | Pulmonary Progress Note ---
Subjective Time Seen by a Provider: 05:44 Subjective/Events-last exam S/P emergent surgery. Sepsis Event Evaluation Height, Weight, BMI Height: 5'2.00" Weight: 153lbs. 0.0oz. 69.240740cv; 22.3 BMI Method:Actual Focused Exam Lactate Level 11/07/18 20:20: Lactic Acid Level 5.24*H 11/07/18 22:58: Lactic Acid Level 3.20*H 11/08/18 03:00: Lactic Acid Level 2.33*H Lactic Acid Level Laboratory Tests Test 11/08/18 03:00 Lactic Acid Level 2.33 MMOL/L (0.50-2.00) *H Exam Exam Vital Signs Date Time Temp Pulse Resp B/P (MAP) Pulse Ox O2 Delivery O2 Flow Rate FiO2 11/08/18 04:40 40 11/08/18 04:35 90 15 116/58 (77) 100 Mechanical Ventilator 40.00 11/08/18 04:00 96 Mechanical Ventilator 45 11/08/18 04:00 93 16 123/60 (81) 99 Mechanical Ventilator 45.00 11/08/18 03:57 96.9 95 14 102/54 99 Mechanical Ventilator 45.00 11/08/18 03:00 95 14 102/54 (70) 99 Mechanical Ventilator 45.00 11/08/18 02:39 98 19 99 45 11/08/18 02:00 101 21 120/58 (78) 99 Mechanical Ventilator 45.00 11/08/18 01:00 112 16 132/64 (86) 97 Mechanical Ventilator 45.00 11/08/18 01:00 112 11/08/18 00:01 105 19 122/61 (81) 94 Mechanical Ventilator 45.00 11/08/18 00:00 94 Mechanical Ventilator 40 11/08/18 00:00 45.00 11/07/18 23:57 118 18 94 45 11/07/18 23:47 96.9 11/07/18 23:13 96.0 170 22 94/57 94 Mechanical Ventilator 40.00 11/07/18 23:00 110 22 146/59 (88) 94 Mechanical Ventilator 40.00 11/07/18 22:46 96.0 170 22 94/57 94 Mechanical Ventilator 40 11/07/18 22:43 174 21 94 40 11/07/18 22:00 105 21 139/67 (91) 98 Mechanical Ventilator 40.00 11/07/18 21:59 96.0 103 20 137/65 98 Mechanical Ventilator 40 11/07/18 21:17 95.9 105 24 137/68 98 Mechanical Ventilator 40 11/07/18 21:01 96.0 105 24 161/80 98 Nasal Cannula 40.00 11/07/18 21:00 109 35 163/82 (109) 98 Mechanical Ventilator 40.00 11/07/18 21:00 95.0 11/07/18 20:53 95.6 110 28 154/78 98 Mechanical Ventilator 40 11/07/18 20:44 96.9 113 26 142/70 98 Mechanical Ventilator 40 11/07/18 20:38 96.9 115 28 137/69 98 Mechanical Ventilator 40 11/07/18 20:00 117 31 144/69 (94) 98 Mechanical Ventilator 40.00 11/07/18 20:00 93 Mechanical Ventilator 40 11/07/18 19:58 96.6 117 20 140/68 (92) 98 Mechanical Ventilator 40.00 11/07/18 19:18 122 36 158/66 (96) 95 Mechanical Ventilator 40.00 11/07/18 19:10 97.3 34 93 Mechanical Ventilator 11/07/18 19:00 122 11/07/18 19:00 92 122/86 (98) 93 Mechanical Ventilator 40.00 11/07/18 19:00 31 93 Mechanical Ventilator 11/07/18 18:50 30 92 Mechanical Ventilator 11/07/18 18:40 26 93 Mechanical Ventilator 11/07/18 18:30 26 93 Mechanical Ventilator 11/07/18 18:20 19 94 Mechanical Ventilator 11/07/18 18:17 113 20 93 40 11/07/18 18:10 97.2 16 94 Mechanical Ventilator 11/07/18 13:52 103 28 100 30 11/07/18 13:39 110 11/07/18 13:02 111 11/07/18 12:46 98.7 11/07/18 12:45 95 Mechanical Ventilator 30 11/07/18 11:16 101 23 100 30 11/07/18 08:11 95 Mechanical Ventilator 30 11/07/18 08:00 101 20 127/66 (86) 96 Mechanical Ventilator 30.00 11/07/18 07:35 99.2 11/07/18 07:00 92 16 130/59 (82) 96 Mechanical Ventilator 30.00 11/07/18 07:00 92 11/07/18 06:37 92 16 94 30 11/07/18 06:00 93 16 123/59 (80) 95 Mechanical Ventilator 30.00 11/07/18 05:38 123/68 I & O 11/08/18 07:00 Intake Total 3216 ml Output Total 2045 ml Balance 1171 ml Height & Weight Height: 5'2.00" Weight: 153lbs. 0.0oz. 69.782421ch; 22.3 BMI Method:Actual General Appearance: Chronically ill, Thin, Other (intubated sedated) HEENT: PERRL/EOMI, Normal ENT Inspection, Pharynx Normal, Moist Mucous Membranes, Pale Conjunctivae (R) Neck: Full Range of Motion, Normal Inspection, Non Tender Respiratory: Normal Breath Sounds, No Accessory Muscle Use, No Respiratory Distress Cardiovascular: Tachycardia Capillary Refill: Less Than 3 Seconds Gastrointestinal: soft, no organomegaly, no pulsatile mass Extremity: Normal Capillary Refill, Normal Inspection, Normal Range of Motion, Non Tender, No Calf Tenderness, No Pedal Edema Neurologic/Psychiatric: No Alert (intubated/sedate) Skin: Cool, Pallor Lymphatic: No Adenopathy Results Lab Laboratory Tests 11/06/18 10:11 11/06/18 11:25 11/06/18 16:47 11/06/18 21:58 11/07/18 04:35 11/07/18 12:35 11/07/18 14:45 11/07/18 17:25 11/07/18 22:58 11/08/18 03:00 Assessment/Plan Assessment/Plan Acute respiratory failure -Continue ventilator care -PEEP is at 8 -Labs and CXR reviewed -Propofol, Fentanyl gtt Metabolic acidosis -Give 2 amps of Bicarb Acute severe GIB - with PUD - s/p ex lap with ligation off gastroduodenal artery and repair of pyloric perforation. -S/P mass transfusion 6 units PRBC on 11/07, 4 units of FFP and 1 unit of Platelets -I believe pt has had a total of 15units of PRBC, 6units of FFP, and 2 units of Platelets this admission -S/p EGD x 3 -Surgery following -Protonix gtt, Octreotide -H&H Q6 Tachycardia -Monitor Anemia -Monitor Metabolic lactic acidosis -Pt is no on D5W with 3 amps of bicarb at 100cc/hr -Monitor Hypernatremia -monitor -improving Hypotension -Pt is still on levophed, and Vasopressin -Monitor Left sided rib fractures s/p fall 2 mo ago -IS -Fall risk Pulmonary infiltrate -Monitor for now Small left pleural effusion -Monitor ARJUN MEADE DO Nov 08, 2018 05:37
[2018-11-08] MEDS ORDERED: POTASSIUM PHOSPHATE INJ 30 MM in NS (IVPB) 250 ML IV ONE (05:45)
[2018-11-08] MEDS: metroNIDAZOLE 500MG/100ML IVPB 100 ML IV SCH ×3 (05:59→22:40)
[2018-11-08] MEDS: ceFAZolin INJECTION 1,000 MG in WATER (STERILE) FOR INJECTION 10 ML IV SCH ×3 (05:59→22:39)
--- NOTE | 2018-11-08 07:24 | Diagnostic Imaging Report ---
EXAM: CHEST 1 VIEW, AP/PA ONLY INDICATION: Dyspnea. COMPARISON: Chest radiograph 11/07/2018. FINDINGS: Low lung volumes. Heart size is obscured. Dense consolidation in the lung bases. Bilateral pleural effusions. ETT tip approximately 1 cm from the maikel. Left PICC tip in the upper SVC. Postoperative changes in the cervical spine. NG tube tip and side port overlying the stomach. Surgical clips in the upper abdomen. IMPRESSION: 1. Low lung volumes with dense consolidation in the lung bases and bilateral pleural effusions. 2. Support lines in stable position including ETT tip approximately 1 cm from the maikel. Dictated by: Dictated on workstation # [id number]
--- NOTE | 2018-11-08 09:18 | Physical Therapy Progress Note ---
Therapy Progress Note Discontinue PT services at this time. Pt remains on the ventilator. Nursing notified. SALLY CENTENO PT Nov 08, 2018 09:18
--- NOTE | 2018-11-08 09:24 | CONSULTATION REPORT ---
DATE OF SERVICE: 11/03/2018 PRIMARY CARE PHYSICIAN: Dr. Jw Ruggiero. HISTORY OF PRESENT ILLNESS: The patient is a 78-year-old female who was seen in consultation with Dr. Bautista. She presented to [facility] yesterday evening with complaints of dizziness, fatigue as well as shortness of breath. The patient reports that she did not feel very well yesterday and reports that the night before that she did have an episode of vomiting bright or coffee-ground emesis as well as had a bowel movement that was dark tarry looking stool. She reports that she had only had one episode. She reports that in the ER she was found to have hemoglobin of 6.6 as well as Hemoccult positive stools. She reports that she has had ulcers before that were discovered on EGD and reports this was around 2014. She reports that she has not had any nausea, abdominal pain or any reflux, but does report that she does take Protonix 40 mg daily. She also reports that she has had a colonoscopy in the past. Reports this was years ago and reports as far she can remember this was normal. PAST MEDICAL HISTORY: Hypertension, peptic ulcer disease. PAST SURGICAL HISTORY: Cataract surgery, right hip replacement. ALLERGIES: UNKNOWN BLADDER MEDICATION. MEDICATIONS: Tylenol 325 mg 2 tablets q.4 hours p.r.n., atenolol 25 mg daily, hydrocodone q.4 hours p.r.n., Protonix 40 mg daily, folic acid 1 mg daily, gabapentin 300 mg at bedtime, multivitamin daily, tramadol 50 mg t.i.d. p.r.n. SOCIAL HISTORY: Negative for smoking, negative for alcohol. FAMILY HISTORY: Noncontributory. VITAL SIGNS: Temperature 98.9, pulse 93, respirations 20, blood pressure is 113/78, O2 is 97% on room air. LABORATORY DATA: WBC 12.4, RBC 3.09, hemoglobin 7.9, hematocrit 24. PT 14.4, INR is 1.1. REVIEW OF SYSTEMS: Well-nourished female in no acute distress. She is not experiencing any shortness of breath or difficulty breathing. No chest pain, palpitations. No diaphoresis. No nausea, but did report episodes of amount of emesis. No abdominal pain. No diarrhea or constipation. She does report dark tarry stools. No recent weight gain or loss. All other review of systems negative. PHYSICAL EXAMINATION: CHEST: Clear. Good breath sounds bilaterally. HEART: Regular. No murmurs. EXTREMITIES: No lower extremity edema. Negative Homans sign. HEENT: No scleral icterus. No cervical adenopathy. ABDOMEN: Soft, nontender, nondistended. No palpable masses. No organomegaly. SKIN: Warm, dry and pink. NEUROLOGIC: Awake, alert, oriented x3. ASSESSMENT AND PLAN: A 78-year-old female with acute GI bleed, who also has a history of peptic ulcer disease as well as gastroesophageal reflux disease. At this time, she has been admitted and did receive 2 units of packed red blood cells. We will proceed with starting her on clear liquids as well as colonic prep and will proceed with scheduling her for EGD and a colonoscopy during this admission. The patient verbalized understanding of instructions and agrees to this plan. Job ID: [id number] DocumentID: [id number] Dictated Date: 11/03/2018 15:28:57 Mission Manager Date: 11/03/2018 16:21:17 Dictated By: JAGRUTI DILLARD APRN MONTEFIORE HEALTH SYSTEMJeremy
[2018-11-08] MEDS ORDERED: NS (IVPB) 250 ML ONE (09:43)
--- NOTE | 2018-11-08 10:30 | NUR ---
HELD 4MG LEVOPHED AT THIS TIME, RESTARTED 8MG LEVOPHED PHARMACY WAS ABLE TO SEND UP A NEW BAG, PATIENT IS MORE RESPONSIVE TO 8MG.
--- NOTE | 2018-11-08 11:10 | NUR ---
Pastoral care visit.
--- NOTE | 2018-11-08 11:57 | NUR ---
Palliative Care RN asked to see patient's regarding CODE status. Arrived to the room and Dr. Talamantes was there. I stepped in and and nga Talamantes was discussion patient medical condition and the hurdles she will need to get over. He educated the family on CODE status and the trauma she would/could incur during CODE. In the end the has elected to make the patient a DNR. The patient and her are nearing there 59 year Anniversary. The has expressed his mental and emotional fatigue. He has also expressed his appreciation for her medical team including the doctors and nurses.
[2018-11-08 12:26] LABS: HEMOGLOBIN 9.5 G/DL (11.5-16.0)
--- NOTE | 2018-11-08 13:31 | OPERATIVE REPORT ---
DATE OF SERVICE: 11/07/2018 PREOPERATIVE DIAGNOSIS: Acute GI bleed. POSTOPERATIVE DIAGNOSIS: Pyloric ulcers with bleeding. PROCEDURE: EGD. ANESTHESIA: Sedation. ESTIMATED BLOOD LOSS: None. SURGEON: Robert Talamantes DO. INDICATIONS: The patient is a 78-year-old female, who has become hypotensive, tachycardic and had significant bright red bleeding from OG tube. The patient was scoped yesterday with pyloric ulcers with control of bleeding. The family understands risks and benefits of procedure and wished to proceed. PROCEDURE: The patient was intubated already and sedated. A timeout was performed. Scope was inserted in mouth, down the esophagus and into the stomach where large clot burden was present. No evidence of any active bleeding within the stomach. The scope was continued to be slowly inserted through the pylorus and into the first portion of the duodenum. Significant clot burden with some active bleeding was present, unable to get this to be stopped with endoscopic procedures. The clot burden was too extensive and the patient too critical; therefore, the scope was then slowly retracted until completely removed. The patient to be taken to the OR for further surgical intervention. Job ID: [id number] DocumentID: [id number] Dictated Date: 11/08/2018 09:01:59 Platform Mill Supervisor Date: 11/08/2018 13:31:03 Dictated By: ROBERT TALAMANTES DO [facility]
--- NOTE | 2018-11-08 14:06 | OPERATIVE REPORT ---
DATE OF SERVICE: 11/07/2018 PREOPERATIVE DIAGNOSIS: Acute gastrointestinal, bleed, upper. POSTOPERATIVE DIAGNOSES: Duodenal ulcer bleed, perforated duodenal ulcer, pyloric ulcers. PROCEDURE: Exploratory laparotomy, pyloromyotomy, ligation of gastroduodenal artery, repair of pyloric perforation. SURGEON: William Talamantes DO BREAKER BOSS: Dr. Acuña, assisted in retraction, dissection and closure. ANESTHESIA: General. ESTIMATED BLOOD LOSS: 200 mL from surgical intervention and 1500 mL of suctional blood. SPECIMENS: None. INDICATIONS: The patient is a 78-year-old female, who has had an upper GI bleed. She has required significant transfusions. She has had multiple attempts of control with endoscopic procedure. She just underwent a EGD at bedside, just prior to surgery, which demonstrated a significant amount of bleeding, which was unable to be controlled endoscopically. The patient's family understands risks and benefits of procedure and wished to proceed. Consent was signed in the chart. DESCRIPTION OF PROCEDURE: The patient was taken to the operating suite. She was prepped and draped in sterile fashion. Surgical pause was performed. Midline incision was made in the upper abdomen and the stomach was distended and the rest of this bowel appeared to be blood filled. Cautery was used to make a longitudinal incision along the stomach, pylorus and duodenum. A significant amount of clot was evacuated. On the pylorus just to the superior side, there was some omentum that was stuck to this. There was also a small amount of air coming from this consistent with a pyloric perforation. All the clot blood was evacuated and irrigated. There was still bleeding that was fresh bleeding from just distal, so the incision on the duodenum had to be slightly lengthened. At this time, the gastroduodenal artery was visualized bleeding into the duodenum through ulcer. This was then ligated and hemostasis was achieved. The area was irrigated and continued to be monitored and no further active bleeding present. At this time, the attention was placed to the ulcer that had perforated. This was at the pylorus to which a 3-0 Vicryl was used to close the ulceration using a [id number] fashion. At this time, the pyloromyotomy was then closed in the apex to apex fashion and then closing the remainder of the defect in simple interrupted sutures using 3-0 Vicryls. The abdomen was then irrigated with copious amounts of irrigation and suctioned. The abdomen was inspected noting no other pathology. The fascia was then closed using 1-0 looped PDS and the skin was then closed with eduardo. Prior to closure, a 19 blade drain was placed where the pyloromyotomy was present. The skin was then closed with eduardo. The drain was secured with 3-0 Vicryl. The abdomen was then washed and dried. Sterile bandages were applied. The patient was still in critical condition and taken back to intensive care unit. Job ID: [id number] DocumentID: [id number] Dictated Date: 11/08/2018 09:35:19 Associate Professor Computer Science Date: 11/08/2018 14:05:30 Dictated By: DO MELISSA PAINTING
--- NOTE | 2018-11-08 14:07 | Progress Note-Hospitalist ---
Progress Note Progress Notes/Assess & Plan Date Seen 11/08/18 Time Seen by Provider: 14:04 Assessment & Plan The patient underwent emergency surgery last evening with a pyloromyotomy, ligation of the gastroduodenal artery and a repair of a duodenal perforation. She is sedated and on the ventilator but looks much better today. Her vital signs are excellent. After a low hemoglobin of 4.7 immediately prior to surgery today she is stable in the nines. Physical exam: she is deeply sedated. She is on the ventilator at an FiO2 of 40 percent. Lungs are clear to auscultation. CV is 80 and regular. Lungs are clear. Impression: Persistent upper GI bleeding in much improved condition postop day 1 Focused Exam Lactate Level 11/07/18 22:58: Lactic Acid Level 3.20*H 11/08/18 03:00: Lactic Acid Level 2.33*H 11/08/18 06:15: Lactic Acid Level 1.92 PEYTON DIETZ MD Nov 08, 2018 14:07
--- NOTE | 2018-11-08 14:38 | Anesthesia-General Post-Op ---
General Patient Condition Mental Status/LOC: Unreactive (currently sedated) Cardiovascular: Satisfactory (BP much better now with a stable hemoglobin) Nausea/Vomiting: Absent (intubated so unable to assess) Respiratory: Satisfactory (no ventilatory issues, but unresponsive on vent) Pain: Controlled (unresponsive on vent so unable to assess) Complications: Absent Post Op Complications Complications None Follow Up Care/Instructions Patient Instructions None needed. Anesthesia/Patient Condition Patient Condition Patient is currently unresponsive on ventilator but appears much more stable today. We will continue to be available as needed. SHARON RASCON DO Nov 08, 2018 14:38
[2018-11-08] MEDS: SODIUM BICARBONATE IV SCH ×2 (14:41→23:48)
[2018-11-08] MEDS: D5W IV SCH ×2 (14:41→23:48)
--- NOTE | 2018-11-08 15:15 | Occ Therapy Progress Note ---
Therapy Progress Note Discontinue OT services at this time. Pt remains on the ventilator. Nursing notified. ANGELY CHOUDHURY OT Nov 08, 2018 15:15
--- NOTE | 2018-11-08 17:41 | Cardiology Progress Note ---
Cardiology SOAP Progress Note Subjective: Intubated/ventilated. Objective: I&O/Vital Signs 11/08/18 11/08/18 11/08/18 11/08/18 05:53 06:00 06:54 07:00 Pulse 84 84 85 85 Resp 16 16 15 B/P (MAP) 118/58 (78) 98/49 (65) Pulse Ox 99 99 99 O2 Delivery Mechanical Ventilator Mechanical Ventilator O2 Flow Rate 40.00 40.00 FiO2 40 11/08/18 11/08/18 11/08/18 11/08/18 07:38 07:44 08:00 09:00 Temp 98.7 Pulse 87 87 88 Resp 16 15 16 B/P (MAP) 107/53 (71) 113/55 (74) 120/58 (78) Pulse Ox 98 98 99 99 O2 Delivery Mechanical Ventilator Mechanical Ventilator Mechanical Ventilator Mechanical Ventilator O2 Flow Rate 40.00 40.00 40.00 FiO2 40 11/08/18 11/08/18 11/08/18 11/08/18 09:33 10:00 10:00 10:24 Temp 98.8 Pulse 86 87 87 Resp 15 16 B/P (MAP) 117/82 (94) Pulse Ox 100 100 O2 Delivery Mechanical Ventilator O2 Flow Rate 40.00 FiO2 40 11/08/18 11/08/18 11/08/18 11/08/18 11:00 12:00 12:00 12:24 Pulse 89 89 89 Resp 16 16 B/P (MAP) 98/88 (91) 128/101 (110) Pulse Ox 100 99 98 O2 Delivery Mechanical Ventilator Mechanical Ventilator Mechanical Ventilator O2 Flow Rate 40.00 40.00 FiO2 40 11/08/18 11/08/18 11/08/18 11/08/18 13:00 14:00 14:08 14:41 Pulse 88 89 90 86 Resp 17 15 16 B/P (MAP) 149/64 (92) 148/85 (106) Pulse Ox 99 100 100 O2 Delivery Mechanical Ventilator Mechanical Ventilator O2 Flow Rate 40.00 40.00 FiO2 40 11/08/18 11/08/18 11/08/18 11/08/18 15:00 15:38 16:00 16:00 Temp 97.8 Pulse 82 83 Resp 16 16 B/P (MAP) 99/62 (74) 154/89 (110) Pulse Ox 99 98 100 O2 Delivery Mechanical Ventilator Mechanical Ventilator Mechanical Ventilator O2 Flow Rate 40.00 40.00 FiO2 30 11/08/18 17:00 Pulse 82 Resp 16 B/P (MAP) 151/89 (109) Pulse Ox 100 O2 Delivery Mechanical Ventilator O2 Flow Rate 40.00 11/08/18 00:00 Intake Total 2458 ml Output Total 1655 ml Balance 803 ml Weight (Pounds): 201 Weight (Ounces): 3.0 Weight (Calculated Kilograms): 91.323824 Constitutional: appears stated age, well-developed, well-nourished, other ( intubated/ventilated.) Respiratory: rhonchi, other (ventilated.) Cardiovascular: regular rate-rhythm; No irregularly irregular, No extra beats, No parasternal heave is noted, No JVD, No edema, No bradycardia, No tachycardia , No point of maximal impulse, No cardiac thrills are palpable; S1 and S2; No gallop/S3, No gallop/S4, No diastolic murmur, No systolic murmur, No friction rub, No click, No other Gastrointestional: No tender; soft; No round, No distended, No pulsatile mass, No organomegaly, No guarding, No rebound, No tenderness, No hernia, No mass, No audible bowel sounds, No abnormal bowel sounds, No abdominal bruits, No spleenomegaly, No other Extremities: No normal range of motion, No non-tender, No normal inspection, No pedal edema, No calf tenderness, No normal capillary refill, No pelvis stable , No calf tenderness, No inflammation, No pedal edema, No slow capillary refill , No swelling, No other, No abrasion, No clubbing, No cyanosis, No ecchymosis, No laceration, No no lower extremity edema bilateral, No significant edema, No tenderness, No wound Neurologic/Psychiatric: alert, oriented x 3, power is 5/5 both on sides Skin: pallor; No rash, No ulcerations Results/Procedures: Labs Laboratory Tests 11/07/18 20:20: Lactic Acid Level 5.24*H 11/07/18 21:22: Prothrombin Time 18.8H, INR Comment 1.5H, Activated Partial Thromboplast Time 38H, Fibrinogen 246 11/07/18 22:24: Glucometer 307H 11/07/18 22:58: Lactic Acid Level 3.20*H, Hemoglobin 9.7#L, Hematocrit 28L, Blood Gas Puncture Site RIGHT RADIAL, Blood Gas Patient Temperature 96.0, Arterial Blood pH 7.29*L , Arterial Blood Partial Pressure CO2 31L, Arterial Blood Partial Pressure O2 56L, Arterial Blood HCO3 15*L, Arterial Blood Total CO2 15.6L, Arterial Blood Oxygen Saturation 93L, Arterial Blood Base Excess -10.9L, Jackson Test YES-POS, Blood Gas Ventilator Setting YES, Blood Gas Inspired Oxygen 40% 11/08/18 00:07: Glucometer 269H 11/08/18 03:00: White Blood Count 12.7H, Red Blood Count 3.18L, Hemoglobin 9.6L, Hematocrit 28L , Mean Corpuscular Volume 87, Mean Corpuscular Hemoglobin 30, Mean Corpuscular Hemoglobin Concent 35, Red Cell Distribution Width 14.5, Platelet Count 122L, Mean Platelet Volume 9.7, Neutrophils (%) (Auto) 87H, Lymphocytes (%) (Auto) 5L , Monocytes (%) (Auto) 5, Eosinophils (%) (Auto) 3, Basophils (%) (Auto) 0, Neutrophils # (Auto) 11.0H, Lymphocytes # (Auto) 0.6L, Monocytes # (Auto) 0.7, Eosinophils # (Auto) 0.4H, Basophils # (Auto) 0.0, Blood Gas Puncture Site RIGHT RADIAL, Blood Gas Patient Temperature 97.5, Arterial Blood pH 7.26*L, Arterial Blood Partial Pressure CO2 39, Arterial Blood Partial Pressure O2 115H , Arterial Blood HCO3 17*L, Arterial Blood Total CO2 18.4L, Arterial Blood Oxygen Saturation 98, Arterial Blood Base Excess -8.6L, Jackson Test YES-POS, Blood Gas Ventilator Setting YES, Blood Gas Inspired Oxygen 45%, Sodium Level 143, Potassium Level 3.4L, Chloride Level 116H, Carbon Dioxide Level 18L, Anion Gap 9, Blood Urea Nitrogen 12, Creatinine 0.61, Estimat Glomerular Filtration Rate > 60, BUN/Creatinine Ratio 20, Glucose Level 221H, Lactic Acid Level 2.33*H , Calcium Level 7.0L, Phosphorus Level 2.1L, Magnesium Level 1.4L 11/08/18 06:15: Hemoglobin 9.0L, Hematocrit 26L, Lactic Acid Level 1.92 11/08/18 07:59: Glucometer 226H 11/08/18 12:20: Glucometer 141H 11/08/18 12:21: Hemoglobin 9.5L, Hematocrit 27L 11/08/18 13:22: Lab Scanned Report Transfusion Reaction Form 11/08/18 16:23: Glucometer 129H Microbiology 11/02/18 MRSA Screen - Final, Complete MRSA not isolated A/P: Assessment/Dx: Severe GI bleeding, anemia, Severe respiratory failure Plan: Severe GI bleeding, transfusion with PRBCs, status post upper and lower GI endoscopy. Severe respiratory failure -intubated/ventilated. Echocardiogram done 11/04/2018 shows normal LV function with mild to moderate LVH , moderate to severe pulmonary hypertension. Collapsed IVC suggesting significant volume depletion. Sinus tachycardia Thank you for your consultation. Please call me if you have any questions. Belinda Thrasher MD, FACP, FACC, FSCAI, FHRS, CCDS Interventional Cardiology Cardiac Electrophysiology Vascular Medicine and Endovascular Interventions Focused Exam Lactate Level 11/07/18 22:58: Lactic Acid Level 3.20*H 11/08/18 03:00: Lactic Acid Level 2.33*H 11/08/18 06:15: Lactic Acid Level 1.92 Yan THRASHER MD Nov 08, 2018 5:40 pm
--- NOTE | 2018-11-08 18:23 | Progress Note ---
Subjective Date Seen by a Provider: Nov 08, 2018 Time Seen by a Provider: 11:09 Subjective/Events-last exam Patient intubated and sedated. Patient hemoglobin stable in the 9 range. Her is bedside along with their son. Still on the Levophed to maintain adequate blood pressure but decreasing requirement. Overnight heart rate significantly elevated but now controlled. Focused Exam Lactate Level 11/07/18 22:58: Lactic Acid Level 3.20*H 11/08/18 03:00: Lactic Acid Level 2.33*H 11/08/18 06:15: Lactic Acid Level 1.92 Objective Exam Vital Signs Date Time Temp Pulse Resp B/P (MAP) Pulse Ox O2 Delivery O2 Flow Rate FiO2 11/08/18 18:00 80 16 147/86 (106) 100 Mechanical Ventilator 40.00 11/08/18 17:00 82 16 151/89 (109) 100 Mechanical Ventilator 40.00 11/08/18 16:00 83 16 154/89 (110) 100 Mechanical Ventilator 40.00 11/08/18 16:00 98 Mechanical Ventilator 30 11/08/18 15:38 97.8 11/08/18 15:00 82 16 99/62 (74) 99 Mechanical Ventilator 40.00 11/08/18 14:41 86 11/08/18 14:08 90 16 100 40 11/08/18 14:00 89 15 148/85 (106) 100 Mechanical Ventilator 40.00 11/08/18 13:00 88 17 149/64 (92) 99 Mechanical Ventilator 40.00 11/08/18 12:24 89 11/08/18 12:00 98 Mechanical Ventilator 40 11/08/18 12:00 89 16 128/101 (110) 99 Mechanical Ventilator 40.00 11/08/18 11:00 89 16 98/88 (91) 100 Mechanical Ventilator 40.00 11/08/18 10:24 87 16 100 40 11/08/18 10:00 87 15 117/82 (94) 100 Mechanical Ventilator 40.00 11/08/18 10:00 86 11/08/18 09:33 98.8 11/08/18 09:00 88 16 120/58 (78) 99 Mechanical Ventilator 40.00 11/08/18 08:00 87 15 113/55 (74) 99 Mechanical Ventilator 40.00 11/08/18 07:44 98 Mechanical Ventilator 40 11/08/18 07:38 98.7 87 16 107/53 (71) 98 Mechanical Ventilator 40.00 11/08/18 07:00 85 15 98/49 (65) 99 Mechanical Ventilator 40.00 11/08/18 06:54 85 11/08/18 06:00 84 16 118/58 (78) 99 Mechanical Ventilator 40.00 11/08/18 05:53 84 16 99 40 11/08/18 04:40 40 11/08/18 04:35 90 15 116/58 (77) 100 Mechanical Ventilator 40.00 11/08/18 04:00 96 Mechanical Ventilator 45 11/08/18 04:00 93 16 123/60 (81) 99 Mechanical Ventilator 45.00 11/08/18 03:57 96.9 95 14 102/54 99 Mechanical Ventilator 45.00 11/08/18 03:00 95 14 102/54 (70) 99 Mechanical Ventilator 45.00 11/08/18 02:39 98 19 99 45 11/08/18 02:00 101 21 120/58 (78) 99 Mechanical Ventilator 45.00 11/08/18 01:00 112 16 132/64 (86) 97 Mechanical Ventilator 45.00 11/08/18 01:00 112 11/08/18 00:01 105 19 122/61 (81) 94 Mechanical Ventilator 45.00 11/08/18 00:00 94 Mechanical Ventilator 40 11/08/18 00:00 45.00 11/07/18 23:57 118 18 94 45 11/07/18 23:47 96.9 11/07/18 23:13 96.0 170 22 94/57 94 Mechanical Ventilator 40.00 11/07/18 23:00 110 22 146/59 (88) 94 Mechanical Ventilator 40.00 11/07/18 22:46 96.0 170 22 94/57 94 Mechanical Ventilator 40 11/07/18 22:43 174 21 94 40 11/07/18 22:00 105 21 139/67 (91) 98 Mechanical Ventilator 40.00 11/07/18 21:59 96.0 103 20 137/65 98 Mechanical Ventilator 40 11/07/18 21:17 95.9 105 24 137/68 98 Mechanical Ventilator 40 11/07/18 21:01 96.0 105 24 161/80 98 Nasal Cannula 40.00 11/07/18 21:00 109 35 163/82 (109) 98 Mechanical Ventilator 40.00 11/07/18 21:00 95.0 11/07/18 20:53 95.6 110 28 154/78 98 Mechanical Ventilator 40 11/07/18 20:44 96.9 113 26 142/70 98 Mechanical Ventilator 40 11/07/18 20:38 96.9 115 28 137/69 98 Mechanical Ventilator 40 11/07/18 20:00 117 31 144/69 (94) 98 Mechanical Ventilator 40.00 11/07/18 20:00 93 Mechanical Ventilator 40 11/07/18 19:58 96.6 117 20 140/68 (92) 98 Mechanical Ventilator 40.00 11/07/18 19:18 122 36 158/66 (96) 95 Mechanical Ventilator 40.00 11/07/18 19:10 97.3 34 93 Mechanical Ventilator 11/07/18 19:00 122 11/07/18 19:00 92 122/86 (98) 93 Mechanical Ventilator 40.00 11/07/18 19:00 31 93 Mechanical Ventilator 11/07/18 18:50 30 92 Mechanical Ventilator 11/07/18 18:40 26 93 Mechanical Ventilator 11/07/18 18:30 26 93 Mechanical Ventilator 11/07/18 18:20 19 94 Mechanical Ventilator I & O 11/08/18 07:00 Intake Total 3616 ml Output Total 2045 ml Balance 1571 ml Capillary Refill : Greater Than 3 SecondsLess Than 3 Seconds General Appearance: Chronically ill, Thin, Other (intubated and sedated) HEENT: Normal ENT Inspection Neck: Normal Inspection, Non Tender Respiratory: Lungs Clear Cardiovascular: Regular Rate, Rhythm Gastrointestinal: soft (drain serosanguineous) Extremity: Normal Inspection, No Pedal Edema Neurologic/Psychiatric: No Alert (intubated and sedated) Skin: Pallor Lymphatic: No Adenopathy Results Lab Laboratory Tests 11/07/18 20:20: Lactic Acid Level 5.24*H 11/07/18 21:22: Prothrombin Time 18.8H, INR Comment 1.5H, Activated Partial Thromboplast Time 38H, Fibrinogen 246 11/07/18 22:24: Glucometer 307H 11/07/18 22:58: Lactic Acid Level 3.20*H, Hemoglobin 9.7#L, Hematocrit 28L, Blood Gas Puncture Site RIGHT RADIAL, Blood Gas Patient Temperature 96.0, Arterial Blood pH 7.29*L , Arterial Blood Partial Pressure CO2 31L, Arterial Blood Partial Pressure O2 56L, Arterial Blood HCO3 15*L, Arterial Blood Total CO2 15.6L, Arterial Blood Oxygen Saturation 93L, Arterial Blood Base Excess -10.9L, Jackson Test YES-POS, Blood Gas Ventilator Setting YES, Blood Gas Inspired Oxygen 40% 11/08/18 00:07: Glucometer 269H 11/08/18 03:00: White Blood Count 12.7H, Red Blood Count 3.18L, Hemoglobin 9.6L, Hematocrit 28L , Mean Corpuscular Volume 87, Mean Corpuscular Hemoglobin 30, Mean Corpuscular Hemoglobin Concent 35, Red Cell Distribution Width 14.5, Platelet Count 122L, Mean Platelet Volume 9.7, Neutrophils (%) (Auto) 87H, Lymphocytes (%) (Auto) 5L , Monocytes (%) (Auto) 5, Eosinophils (%) (Auto) 3, Basophils (%) (Auto) 0, Neutrophils # (Auto) 11.0H, Lymphocytes # (Auto) 0.6L, Monocytes # (Auto) 0.7, Eosinophils # (Auto) 0.4H, Basophils # (Auto) 0.0, Blood Gas Puncture Site RIGHT RADIAL, Blood Gas Patient Temperature 97.5, Arterial Blood pH 7.26*L, Arterial Blood Partial Pressure CO2 39, Arterial Blood Partial Pressure O2 115H , Arterial Blood HCO3 17*L, Arterial Blood Total CO2 18.4L, Arterial Blood Oxygen Saturation 98, Arterial Blood Base Excess -8.6L, Jackson Test YES-POS, Blood Gas Ventilator Setting YES, Blood Gas Inspired Oxygen 45%, Sodium Level 143, Potassium Level 3.4L, Chloride Level 116H, Carbon Dioxide Level 18L, Anion Gap 9, Blood Urea Nitrogen 12, Creatinine 0.61, Estimat Glomerular Filtration Rate > 60, BUN/Creatinine Ratio 20, Glucose Level 221H, Lactic Acid Level 2.33*H , Calcium Level 7.0L, Phosphorus Level 2.1L, Magnesium Level 1.4L 11/08/18 06:15: Hemoglobin 9.0L, Hematocrit 26L, Lactic Acid Level 1.92 11/08/18 07:59: Glucometer 226H 11/08/18 12:20: Glucometer 141H 11/08/18 12:21: Hemoglobin 9.5L, Hematocrit 27L 11/08/18 13:22: Lab Scanned Report Transfusion Reaction Form 11/08/18 16:23: Glucometer 129H Microbiology 11/02/18 MRSA Screen - Final, Complete MRSA not isolated Assessment/Plan Assessment/Plan Assessment/Plan hematemesis melena upper gi bleed pyloric ulcers severe anemia Status post exploratory laparotomy pyloromyotomy controlled gastroduodenal artery closure of perforated pyloric ulcer postop day 1 Patient hemoglobin has stabilized in the 9 range. She still intubated and sedated. Nothing by mouth Griffith for accurate I's and O's Patient critical. Massive transfusion protocol used. Protonix/Octreotide drip. On Ancef and Flagyl since the bowels were opened and concern for contamination when opened bowel. Had discussion with her and son about the critical state that she is in currently. After discussion the do not wish to have chest compressions performed if her heart stops but can continue with medical management. Clinical Quality Measures DVT/VTE Risk/Contraindication: Risk Factor Score Per Nursin RFS Level Per Nursing on Admit: 4+=Very High Contraindications-Pharm: Other *list below* Other: gi bleed ROBERT MARSH DO Nov 08, 2018 18:23
[2018-11-08] MEDS: ATENOLOL 25 MG (TENORMIN) TAB PO SCH (20:00)
[2018-11-08] MEDS: PANTOPRAZOLE INJECTION 200 MG in NS (IVPB) 100 ML IV SCH (23:43)
[2018-11-08 23:58] LABS: HEMOGLOBIN 8.2 G/DL (11.5-16.0)
[2018-11-09] VITALS (37 sets, daily range): BP systolic 83–129; BP diastolic 47–92
[2018-11-09] MEDS: PROPOFOL DRIP (ICU) 100 ML IV SCH ×4 (01:14→18:21)
[2018-11-09] MEDS: MAGNESIUM 1 GM/100 ML IVPB 100 ML IV SCH ×3 (01:59→09:30)
[2018-11-09] MEDS: NS IV 1000 ML 1,000 ML IV SCH ×2 (01:59→13:10)
[2018-11-09] MEDS: POTASSIUM CL 10MEQ/50ML IVPB 50 ML IV SCH ×5 (01:59→11:16)
[2018-11-09] MEDS: MULTIVIT W/MINERALS TAB (THERAGRAN M) PO SCH (02:00)
[2018-11-09] MEDS: KCL 20 MEQ TAB (K-DUR) PO SCH (02:00)
[2018-11-09] MEDS: CALCIUM CARB + VIT D 600 MG (CALCARB + D) TAB PO SCH (02:00)
[2018-11-09] MEDS: FOLIC ACID 1 MG TAB PO SCH (02:00)
[2018-11-09] MEDS: VITAMIN D3 1,000 UNITS (CHOLECALCIFEROL) TABLET PO SCH (02:00)
[2018-11-09] MEDS: D5W IV SCH ×2 (02:23→12:57)
[2018-11-09] MEDS: SODIUM BICARBONATE IV SCH ×2 (02:23→12:57)
[2018-11-09 03:28] LABS: BASOPHILS % (AUTO) 0 % (0-10); EOSINOPHILS # (AUTO) 0.6 10^3/uL (0.0-0.3); EOSINOPHILS % (AUTO) 6 % (0-10); HEMATOCRIT 24 % (35-52); HEMOGLOBIN 8.2 G/DL (11.5-16.0); LYMPHOCYTES # (AUTO) 0.6 X 10^3 (1.0-4.0); LYMPHOCYTES % (AUTO) 6 % (12-44); MEAN CORPUSCULAR HEMOGLOBIN 30 PG (25-34); MEAN CORPUSCULAR HGB CONC 34 G/DL (32-36); MEAN CORPUSCULAR VOLUME 87 FL (80-99); MEAN PLATELET VOLUME 10.1 FL (7.4-10.4); MONOCYTES # (AUTO) 0.7 X 10^3 (0.0-1.0); MONOCYTES % (AUTO) 7 % (0-12); NEUTROPHILS # (AUTO) 8.5 X 10^3 (1.8-7.8); NEUTROPHILS % (AUTO) 82 % (42-75); PLATELET COUNT 125 10^3/uL (130-400); RED CELL DISTRIBUTION WIDTH 16.6 % (10.0-14.5); WHITE BLOOD COUNT 10.5 10^3/uL (4.3-11.0)
[2018-11-09 03:45] LABS: BUN/CREATININE RATIO 15; CALCIUM 6.9 MG/DL (8.5-10.1); CARBON DIOXIDE 26 MMOL/L (21-32); CHLORIDE 113 MMOL/L (98-107); CREATININE SERUM 0.47 MG/DL (0.60-1.30); GFR ESTIMATED > 60; GLUCOSE 123 MG/DL (70-105); MAGNESIUM 1.6 MG/DL (1.8-2.4); PHOSPHORUS 1.5 MG/DL (2.3-4.7); POTASSIUM 3.1 MMOL/L (3.6-5.0); SODIUM 145 MMOL/L (135-145)
[2018-11-09 03:51] LABS: ABG BASE EXCESS 4.1 MMOL/L (-2.5-2.5); ABG OXYGEN SATURATION 83 % (94-100); ABG PCO2 39 MMHG (35-45); ABG PH 7.47 (7.37-7.43); ABG PO2 44 MMHG (79-93)
[2018-11-09 03:52] LABS: INSPIRED O2 25%; PATIENT TEMP 98.4; VENTILATOR YES
[2018-11-09] MEDS: inSUlin ASPART (NovoLOG) 1 UNIT/0.01 ML (CHARGE PER UNIT) SC SCH ×5 (04:12→20:05)
[2018-11-09] MEDS: OCTREOTIDE INJECTION 500 MCG in NS (IVPB) 99 ML IV SCH ×2 (04:49→14:16)
[2018-11-09] MEDS: metroNIDAZOLE 500MG/100ML IVPB 100 ML IV SCH ×3 (05:48→21:44)
[2018-11-09] MEDS: ceFAZolin INJECTION 1,000 MG in WATER (STERILE) FOR INJECTION 10 ML IV SCH ×3 (05:48→21:44)
[2018-11-09] MEDS: SUCRALFATE 1 GM (CARAFATE) TAB PO SCH ×4 (05:48→20:05)
[2018-11-09] MEDS ORDERED: LACTATED RINGERS 1,000 ML IV ONE (06:45)
[2018-11-09] MEDS: NOREPINEPHRINE 8 MG in NS (IVPB) 250 ML IV SCH (08:00)
--- NOTE | 2018-11-09 08:51 | Diagnostic Imaging Report ---
INDICATION: Shortness of breath. EXAMINATION: Portable chest at 3:03 AM. FINDINGS: There is an ET tube projecting over the trachea. The NG tube projects over the stomach. The left subclavian central line tip is at the innominate confluence. The heart size and pulmonary vascularity are within normal limits. There is bilateral basilar infiltrate or atelectasis with small effusions. IMPRESSION: Bilateral basilar infiltrates and/or atelectasis with effusions. No change compared to the previous day. Dictated by: Dictated on workstation # [id number]
--- NOTE | 2018-11-09 09:41 | Anesthesia-General Post-Op ---
General Patient Condition Mental Status/LOC: Same as Preop Cardiovascular: Satisfactory Nausea/Vomiting: Absent Respiratory: Satisfactory Pain: Controlled Complications: Absent Post Op Complications Complications None Follow Up Care/Instructions Patient Instructions None needed. Anesthesia/Patient Condition Patient Condition Patient is doing well, no complaints, stable vital signs, no apparent adverse anesthesia problems. No complications reported per nursing. JUVENAL COOK CRNA Nov 09, 2018 09:41
[2018-11-09] MEDS: fentaNYL 1,250 MCG/NS 250 ML DRIP IV SCH ×2 (09:53)
--- NOTE | 2018-11-09 10:50 | Progress Note-Hospitalist ---
Subjective HPI/CC On Admission Date Seen by Provider: Nov 09, 2018 Time Seen by Provider: 10:30 CC: GI Bleed HPI: This is a 78-year-old white female who sees Dr. Ruggiero who presented to the [place] ER with hematemesis and melena and hematochezia. She was not maintained on any blood thinners anticoagulation studies were normal and had never had a GI bleed before. Repeat hemoglobin was 5.8 patient was given 2 units of packed red blood cells and Dr. Bautista was consulted. Patient had no significant decompensation during the hospital stay in the ICU or she was admitted to due to severe GI bleed. Dr. Lozada was consulted. She will have EGD and colonoscopy tomorrow by Dr. Bautista. [place] but now I hear she's from [facility] in [place] where she was on skilled care so unsure if she is confused or just a temporary stay at [facility] but I would assume she would've told me she was from a [facility] where she lives currently. Subjective/Events-last exam Pt remains intubated Major GI bleed noted and it was a pyloric ulcer that was the same ulcer that she had a couple of years ago. Dr. Ruggiero diagnosed on EGD at the bedside and I visited a great deal Checked meds and labs Focused Exam Lactate Level 11/07/18 22:58: Lactic Acid Level 3.20*H 11/08/18 03:00: Lactic Acid Level 2.33*H 11/08/18 06:15: Lactic Acid Level 1.92 Objective Exam Vital Signs Vital Signs Date Time Temp Pulse Resp B/P (MAP) Pulse Ox O2 Delivery O2 Flow Rate FiO2 11/09/18 17:14 96.1 11/09/18 16:12 71 16 97 25 11/09/18 16:00 95/68 (77) Mechanical Ventilator 25.00 Capillary Refill : Greater Than 3 SecondsLess Than 3 Seconds General Appearance: Chronically ill, Thin, Other (intubated and sedated) HEENT: Normal ENT Inspection Neck: Normal Inspection, Non Tender Respiratory: Lungs Clear Cardiovascular: Regular Rate, Rhythm Gastrointestinal: Normal Bowel Sounds, No Organomegaly, No Pulsatile Mass, Non Tender, Soft Back: Normal Inspection, No CVA Tenderness, No Vertebral Tenderness Extremity: Normal Inspection, Pedal Edema Neurologic/Psychiatric: No Alert (intubated and sedated) Skin: Pallor Lymphatic: No Adenopathy Results/Procedures Lab Laboratory Tests 11/08/18 18:25 11/08/18 23:45 11/09/18 03:15 11/09/18 11:53 11/09/18 16:48 Patient resulted labs reviewed. Imaging: Reviewed Imaging Report Assessment/Plan Assessment and Plan Assess & Plan/Chief Complaint Assessment: Acute respiratory failure needing ICU transfer and intubation GI Bleed EGD x 4 total then s/p surgical repair Pyloric ulcer actively bleeding Dementia Debility Plan: ICU Intubation EGD Prognosis guarded Critical Care Critically Ill Patient Diagnosis/Problems Diagnosis/Problems (1) Ventilator dependence Status: Acute (2) Respiratory failure Status: Acute Qualifiers: Chronicity: acute Respiratory failure complication: hypoxia Qualified Codes: J96.01 - Acute respiratory failure with hypoxia (3) Anemia due to acute blood loss Status: Acute (4) GERD (gastroesophageal reflux disease) Status: Chronic Qualifiers: Esophagitis presence: without esophagitis Qualified Codes: K21.9 - Gastro- esophageal reflux disease without esophagitis (5) Dementia Status: Chronic Qualifiers: Dementia type: Alzheimer's disease Alzheimer's disease onset: unspecified onset Dementia behavioral disturbance: without behavioral disturbance Qualified Codes: G30.9 - Alzheimer's disease, unspecified; F02.80 - Dementia in other diseases classified elsewhere without behavioral disturbance (6) Acute GI bleeding Status: Acute (7) Weakness Status: Acute (8) Transfusion of blood during current hospitalization Status: Acute (9) Pyloric ulcer Status: Acute Qualifiers: Gastric ulcer chronicity: acute Qualified Codes: K25.3 - Acute gastric ulcer without hemorrhage or perforation Clinical Quality Measures DVT/VTE Risk/Contraindication: Risk Factor Score Per Nursin RFS Level Per Nursing on Admit: 4+=Very High Contraindications-Pharm: Other *list below* Other: gi bleed BO SUÁREZ DO Nov 09, 2018 10:50
--- NOTE | 2018-11-09 11:20 | Progress Note ---
Subjective Date Seen by a Provider: Nov 09, 2018 Time Seen by a Provider: 08:56 Subjective/Events-last exam Patient intubated and sedated. Bloody bm's have slowed down drastically. Levophed titrating down. Hgb slight drop. No family at bedside. Focused Exam Lactate Level 11/07/18 22:58: Lactic Acid Level 3.20*H 11/08/18 03:00: Lactic Acid Level 2.33*H 11/08/18 06:15: Lactic Acid Level 1.92 Objective Exam Vital Signs Date Time Temp Pulse Resp B/P (MAP) Pulse Ox O2 Delivery O2 Flow Rate FiO2 11/09/18 10:00 70 15 102/66 (78) 95 Mechanical Ventilator 25.00 11/09/18 09:38 73 16 94 25 11/09/18 09:00 75 15 113/47 (69) 93 Mechanical Ventilator 25.00 11/09/18 08:00 70 15 108/80 (89) 98 Mechanical Ventilator 25.00 11/09/18 08:00 95 Mechanical Ventilator 25 11/09/18 08:00 97.5 11/09/18 07:08 82 11/09/18 07:00 82 15 117/58 (77) 96 Mechanical Ventilator 25.00 11/09/18 06:33 98.1 82 16 121/68 95 Mechanical Ventilator 25.00 11/09/18 06:10 82 16 95 25 11/09/18 06:00 84 16 121/68 (85) 95 Mechanical Ventilator 25.00 11/09/18 05:00 85 16 119/61 (80) 95 Mechanical Ventilator 25.00 11/09/18 04:00 98 Mechanical Ventilator 25 11/09/18 04:00 98.1 11/09/18 04:00 85 16 120/64 (82) 95 Mechanical Ventilator 25.00 11/09/18 03:00 87 16 106/55 (72) 95 Mechanical Ventilator 25.00 11/09/18 02:00 88 16 105/56 (72) 93 Mechanical Ventilator 25.00 11/09/18 01:56 89 16 94 25 11/09/18 01:14 95.0 83 15 102/51 98 Mechanical Ventilator 45.00 11/09/18 01:00 87 16 93/54 (67) 94 Mechanical Ventilator 25.00 11/09/18 01:00 87 11/09/18 00:00 98 Mechanical Ventilator 25 11/09/18 00:00 86 16 103/55 (71) 94 Mechanical Ventilator 25.00 11/08/18 23:00 83 15 102/51 (68) 94 Mechanical Ventilator 25.00 11/08/18 22:02 83 16 96 25 11/08/18 22:00 84 15 108/56 (73) 96 Mechanical Ventilator 25.00 11/08/18 21:00 80 16 112/64 (80) 97 Mechanical Ventilator 25.00 11/08/18 20:00 77 16 122/62 (82) 98 Mechanical Ventilator 25.00 11/08/18 20:00 97 Mechanical Ventilator 25 11/08/18 19:27 95.0 79 16 123/68 (86) 98 Mechanical Ventilator 25.00 11/08/18 19:23 79 11/08/18 19:00 80 19 133/69 (90) 100 Mechanical Ventilator 25.00 11/08/18 18:55 79 16 100 40 11/08/18 18:00 80 16 147/86 (106) 100 Mechanical Ventilator 40.00 11/08/18 17:00 82 16 151/89 (109) 100 Mechanical Ventilator 40.00 11/08/18 16:00 83 16 154/89 (110) 100 Mechanical Ventilator 40.00 11/08/18 16:00 98 Mechanical Ventilator 30 11/08/18 15:38 97.8 11/08/18 15:00 82 16 99/62 (74) 99 Mechanical Ventilator 40.00 11/08/18 14:41 86 11/08/18 14:08 90 16 100 40 11/08/18 14:00 89 15 148/85 (106) 100 Mechanical Ventilator 40.00 11/08/18 13:00 88 17 149/64 (92) 99 Mechanical Ventilator 40.00 11/08/18 12:24 89 11/08/18 12:00 98 Mechanical Ventilator 40 11/08/18 12:00 89 16 128/101 (110) 99 Mechanical Ventilator 40.00 I & O 11/09/18 07:00 Intake Total 2853 ml Output Total 1660 ml Balance 1193 ml Capillary Refill : Greater Than 3 SecondsLess Than 3 Seconds General Appearance: Chronically ill, Thin, Other (intubated and sedated) HEENT: Normal ENT Inspection Neck: Normal Inspection, Non Tender Respiratory: Lungs Clear Cardiovascular: Regular Rate, Rhythm Gastrointestinal: soft (drain serosanguineous) Extremity: Normal Inspection, No Pedal Edema Neurologic/Psychiatric: No Alert (intubated and sedated) Skin: Pallor Lymphatic: No Adenopathy Results Lab Laboratory Tests 11/08/18 12:20: Glucometer 141H 11/08/18 12:21: Hemoglobin 9.5L, Hematocrit 27L 11/08/18 13:22: Lab Scanned Report Transfusion Reaction Form 11/08/18 16:23: Glucometer 129H 11/08/18 18:25: Hemoglobin 9.0L, Hematocrit 26L 11/08/18 20:05: Glucometer 125H 11/08/18 23:45: Hemoglobin 8.2L, Hematocrit 24L 11/08/18 23:47: Glucometer 121H 11/09/18 03:15: White Blood Count 10.5, Red Blood Count 2.75L, Hemoglobin 8.2L, Hematocrit 24L, Mean Corpuscular Volume 87, Mean Corpuscular Hemoglobin 30, Mean Corpuscular Hemoglobin Concent 34, Red Cell Distribution Width 16.6H, Platelet Count 125L, Mean Platelet Volume 10.1, Neutrophils (%) (Auto) 82H, Lymphocytes (%) (Auto) 6L , Monocytes (%) (Auto) 7, Eosinophils (%) (Auto) 6, Basophils (%) (Auto) 0, Neutrophils # (Auto) 8.5H, Lymphocytes # (Auto) 0.6L, Monocytes # (Auto) 0.7, Eosinophils # (Auto) 0.6H, Basophils # (Auto) 0.0, Sodium Level 145, Potassium Level 3.1L, Chloride Level 113H, Carbon Dioxide Level 26, Anion Gap 6, Blood Urea Nitrogen 7, Creatinine 0.47L, Estimat Glomerular Filtration Rate > 60, BUN/ Creatinine Ratio 15, Glucose Level 123H, Calcium Level 6.9L, Phosphorus Level 1.5L, Magnesium Level 1.6L 11/09/18 03:40: Blood Gas Puncture Site RT BRACHIAL, Blood Gas Patient Temperature 98.4, Arterial Blood pH 7.47H, Arterial Blood Partial Pressure CO2 39, Arterial Blood Partial Pressure O2 44L, Arterial Blood HCO3 28H, Arterial Blood Total CO2 29.0 , Arterial Blood Oxygen Saturation 83L, Arterial Blood Base Excess 4.1H, Jackson Test NA, Blood Gas Ventilator Setting YES, Blood Gas Inspired Oxygen 25% 11/09/18 08:19: Glucometer 140H Microbiology 11/02/18 MRSA Screen - Final, Complete MRSA not isolated Assessment/Plan Assessment/Plan Assessment/Plan hematemesis melena upper gi bleed pyloric ulcers severe anemia Status post exploratory laparotomy pyloromyotomy controlled gastroduodenal artery closure of perforated pyloric ulcer postop day 2 Patient hemoglobin slight drop continue to follow. She still intubated and sedated. Nothing by mouth Griffith for accurate I's and O's Patient critical. Massive transfusion protocol used. Protonix/Octreotide drip. On Ancef and Flagyl since the bowels were opened and concern for contamination when opened bowel. Weaning Levophed. Continue medical management. Clinical Quality Measures DVT/VTE Risk/Contraindication: Risk Factor Score Per Nursin RFS Level Per Nursing on Admit: 4+=Very High Contraindications-Pharm: Other *list below* Other: gi bleed ROBERT MARSH DO Nov 09, 2018 11:20
--- NOTE | 2018-11-09 11:22 | NUR ---
Pastoral care visit.
[2018-11-09 12:01] LABS: HEMOGLOBIN 7.4 G/DL (11.5-16.0)
--- NOTE | 2018-11-09 13:21 | Cardiology Progress Note ---
Cardiology SOAP Progress Note Subjective: Intubated/ventilated. Objective: I&O/Vital Signs 11/09/18 11/09/18 11/09/18 11/09/18 01:56 02:00 03:00 04:00 Pulse 89 88 87 85 Resp 16 16 16 16 B/P (MAP) 105/56 (72) 106/55 (72) 120/64 (82) Pulse Ox 94 93 95 95 O2 Delivery Mechanical Ventilator Mechanical Ventilator Mechanical Ventilator O2 Flow Rate 25.00 25.00 25.00 FiO2 25 11/09/18 11/09/18 11/09/18 11/09/18 04:00 04:00 05:00 06:00 Temp 98.1 Pulse 85 84 Resp 16 16 B/P (MAP) 119/61 (80) 121/68 (85) Pulse Ox 98 95 95 O2 Delivery Mechanical Ventilator Mechanical Ventilator Mechanical Ventilator O2 Flow Rate 25.00 25.00 FiO2 25 11/09/18 11/09/18 11/09/18 11/09/18 06:10 06:33 07:00 07:08 Temp 98.1 Pulse 82 82 82 82 Resp 16 16 15 B/P (MAP) 121/68 117/58 (77) Pulse Ox 95 95 96 O2 Delivery Mechanical Ventilator Mechanical Ventilator O2 Flow Rate 25.00 25.00 FiO2 25 11/09/18 11/09/18 11/09/18 11/09/18 08:00 08:00 08:00 09:00 Temp 97.5 Pulse 70 75 Resp 15 15 B/P (MAP) 108/80 (89) 113/47 (69) Pulse Ox 95 98 93 O2 Delivery Mechanical Ventilator Mechanical Ventilator Mechanical Ventilator O2 Flow Rate 25.00 25.00 FiO2 25 11/09/18 11/09/18 11/09/18 11/09/18 09:38 10:00 11:00 11:23 Pulse 73 70 76 75 Resp 16 15 21 B/P (MAP) 102/66 (78) 83/59 (67) 104/55 Pulse Ox 94 95 100 O2 Delivery Mechanical Ventilator Mechanical Ventilator Mechanical Ventilator O2 Flow Rate 25.00 25.00 FiO2 25 11/09/18 11/09/18 11/09/18 11:35 11:40 12:00 Temp 96.5 Pulse 75 77 Resp 16 17 B/P (MAP) 85/61 (69) Pulse Ox 100 100 O2 Delivery Mechanical Ventilator O2 Flow Rate 25.00 FiO2 25 11/09/18 00:00 Intake Total 1095 ml Output Total 780 ml Balance 315 ml Weight (Pounds): 199 Weight (Ounces): 3.0 Weight (Calculated Kilograms): 90.444299 Constitutional: appears stated age, well-developed, well-nourished, other ( intubated/ventilated.) Respiratory: rhonchi, other (ventilated.) Cardiovascular: regular rate-rhythm; No irregularly irregular, No extra beats, No parasternal heave is noted, No JVD, No edema, No bradycardia, No tachycardia , No point of maximal impulse, No cardiac thrills are palpable; S1 and S2; No gallop/S3, No gallop/S4, No diastolic murmur, No systolic murmur, No friction rub, No click, No other Gastrointestional: No tender; soft; No round, No distended, No pulsatile mass, No organomegaly, No guarding, No rebound, No tenderness, No hernia, No mass, No audible bowel sounds, No abnormal bowel sounds, No abdominal bruits, No spleenomegaly, No other Extremities: No normal range of motion, No non-tender, No normal inspection, No pedal edema, No calf tenderness, No normal capillary refill, No pelvis stable , No calf tenderness, No inflammation, No pedal edema, No slow capillary refill , No swelling, No other, No abrasion, No clubbing, No cyanosis, No ecchymosis, No laceration, No no lower extremity edema bilateral, No significant edema, No tenderness, No wound Neurologic/Psychiatric: alert, oriented x 3, power is 5/5 both on sides Skin: pallor; No rash, No ulcerations Results/Procedures: Labs Laboratory Tests 11/08/18 13:22: Lab Scanned Report Transfusion Reaction Form 11/08/18 16:23: Glucometer 129H 11/08/18 18:25: Hemoglobin 9.0L, Hematocrit 26L 11/08/18 20:05: Glucometer 125H 11/08/18 23:45: Hemoglobin 8.2L, Hematocrit 24L 11/08/18 23:47: Glucometer 121H 11/09/18 03:15: Hemoglobin 8.2L, Hematocrit 24L, White Blood Count 10.5, Red Blood Count 2.75L, Mean Corpuscular Volume 87, Mean Corpuscular Hemoglobin 30, Mean Corpuscular Hemoglobin Concent 34, Red Cell Distribution Width 16.6H, Platelet Count 125L, Mean Platelet Volume 10.1, Neutrophils (%) (Auto) 82H, Lymphocytes (%) (Auto) 6L , Monocytes (%) (Auto) 7, Eosinophils (%) (Auto) 6, Basophils (%) (Auto) 0, Neutrophils # (Auto) 8.5H, Lymphocytes # (Auto) 0.6L, Monocytes # (Auto) 0.7, Eosinophils # (Auto) 0.6H, Basophils # (Auto) 0.0, Sodium Level 145, Potassium Level 3.1L, Chloride Level 113H, Carbon Dioxide Level 26, Anion Gap 6, Blood Urea Nitrogen 7, Creatinine 0.47L, Estimat Glomerular Filtration Rate > 60, BUN/ Creatinine Ratio 15, Glucose Level 123H, Calcium Level 6.9L, Phosphorus Level 1.5L, Magnesium Level 1.6L 11/09/18 03:40: Blood Gas Puncture Site RT BRACHIAL, Blood Gas Patient Temperature 98.4, Arterial Blood pH 7.47H, Arterial Blood Partial Pressure CO2 39, Arterial Blood Partial Pressure O2 44L, Arterial Blood HCO3 28H, Arterial Blood Total CO2 29.0 , Arterial Blood Oxygen Saturation 83L, Arterial Blood Base Excess 4.1H, Jackson Test NA, Blood Gas Ventilator Setting YES, Blood Gas Inspired Oxygen 25% 11/09/18 08:19: Glucometer 140H 11/09/18 11:14: Glucometer 175H 11/09/18 11:53: Hemoglobin 7.4L, Hematocrit 22L Microbiology 11/02/18 MRSA Screen - Final, Complete MRSA not isolated A/P: Assessment/Dx: Severe GI bleeding, anemia, Severe respiratory failure Plan: Severe GI bleeding, transfusion with PRBCs, status post upper and lower GI endoscopy. Severe respiratory failure -intubated/ventilated. Echocardiogram done 11/04/2018 shows normal LV function with mild to moderate LVH , moderate to severe pulmonary hypertension. Collapsed IVC suggesting significant volume depletion. Sinus tachycardia, resolved. Thank you for your consultation. Please call me if you have any questions. Belinda Thrasher MD, FACP, FACC, FSCAI, FHRS, CCDS Interventional Cardiology Cardiac Electrophysiology Vascular Medicine and Endovascular Interventions Focused Exam Lactate Level 11/07/18 22:58: Lactic Acid Level 3.20*H 11/08/18 03:00: Lactic Acid Level 2.33*H 11/08/18 06:15: Lactic Acid Level 1.92 Yan THRASHER MD Nov 09, 2018 13:21
[2018-11-09] MEDS: PANTOPRAZOLE INJECTION 200 MG in NS (IVPB) 100 ML IV SCH (14:16)
[2018-11-09 16:54] LABS: HEMOGLOBIN 8.7 G/DL (11.5-16.0)
[2018-11-09] MEDS: ATENOLOL 25 MG (TENORMIN) TAB PO SCH (19:54)
[2018-11-10] VITALS (32 sets, daily range): BP systolic 80–135; BP diastolic 22–90
[2018-11-10] MEDS: inSUlin ASPART (NovoLOG) 1 UNIT/0.01 ML (CHARGE PER UNIT) SC SCH ×6 (00:26→22:13)
[2018-11-10] MEDS: NS IV 1000 ML 1,000 ML IV SCH (00:27)
[2018-11-10] MEDS: OCTREOTIDE INJECTION 500 MCG in NS (IVPB) 99 ML IV SCH ×3 (00:27→20:05)
[2018-11-10] MEDS: PANTOPRAZOLE INJECTION 200 MG in NS (IVPB) 100 ML IV SCH (00:28)
[2018-11-10] MEDS: PROPOFOL DRIP (ICU) 100 ML IV SCH (00:28)
[2018-11-10 00:39] LABS: HEMOGLOBIN 9.8 G/DL (11.5-16.0)
[2018-11-10] MEDS: SODIUM BICARBONATE IV SCH (04:00)
[2018-11-10] MEDS: D5W IV SCH (04:00)
[2018-11-10 04:02] LABS: BASOPHILS % (AUTO) 0 % (0-10); EOSINOPHILS # (AUTO) 0.6 10^3/uL (0.0-0.3); EOSINOPHILS % (AUTO) 7 % (0-10); HEMATOCRIT 29 % (35-52); LYMPHOCYTES # (AUTO) 0.6 X 10^3 (1.0-4.0); LYMPHOCYTES % (AUTO) 7 % (12-44); MEAN CORPUSCULAR HEMOGLOBIN 30 PG (25-34); MEAN CORPUSCULAR HGB CONC 34 G/DL (32-36); MEAN CORPUSCULAR VOLUME 88 FL (80-99); MEAN PLATELET VOLUME 10.4 FL (7.4-10.4); MONOCYTES # (AUTO) 0.6 X 10^3 (0.0-1.0); MONOCYTES % (AUTO) 7 % (0-12); NEUTROPHILS # (AUTO) 6.8 X 10^3 (1.8-7.8); NEUTROPHILS % (AUTO) 80 % (42-75); PLATELET COUNT 167 10^3/uL (130-400); RED CELL DISTRIBUTION WIDTH 16.4 % (10.0-14.5); WHITE BLOOD COUNT 8.5 10^3/uL (4.3-11.0)
[2018-11-10 04:21] LABS: BUN/CREATININE RATIO 14; CALCIUM 6.7 MG/DL (8.5-10.1); CARBON DIOXIDE 27 MMOL/L (21-32); CHLORIDE 107 MMOL/L (98-107); CREATININE SERUM 0.49 MG/DL (0.60-1.30); GFR ESTIMATED > 60; GLUCOSE 136 MG/DL (70-105); MAGNESIUM 1.7 MG/DL (1.8-2.4); PHOSPHORUS 1.7 MG/DL (2.3-4.7); POTASSIUM 3.1 MMOL/L (3.6-5.0); SODIUM 143 MMOL/L (135-145)
[2018-11-10] MEDS ORDERED: NS IV 500 ML 500 ML ONE (04:25)
[2018-11-10 04:29] LABS: ABG BASE EXCESS 7.6 MMOL/L (-2.5-2.5); ABG OXYGEN SATURATION 95 % (94-100); ABG PCO2 37 MMHG (35-45); ABG PH 7.53 (7.37-7.43); ABG PO2 66 MMHG (79-93); ABG TCO2 32.1 MMOL/L (21.0-31.0)
[2018-11-10 04:32] LABS: ALLENS TEST POSITIVE; INSPIRED O2 25% FIO2; PATIENT TEMP 97.5; VENTILATOR YES
[2018-11-10] MEDS: fentaNYL 1,250 MCG/NS 250 ML DRIP IV SCH ×2 (04:53)
[2018-11-10] MEDS ORDERED: NS IV 500 ML 500 ML IV SCH (05:15)
--- NOTE | 2018-11-10 05:31 | Pulmonary Progress Note ---
Subjective Date Seen by a Provider: Nov 09, 2018 (Late note for 11/09 today is 11/10. ) Time Seen by a Provider: 07:32 Subjective/Events-last exam Sedated on vent Sepsis Event Evaluation Height, Weight, BMI Height: 5'2.00" Weight: 199lbs. 3.0oz. 90.647387tx; 22.3 BMI Method:Actual Focused Exam Lactate Level 11/07/18 22:58: Lactic Acid Level 3.20*H 11/08/18 03:00: Lactic Acid Level 2.33*H 11/08/18 06:15: Lactic Acid Level 1.92 Exam Exam Vital Signs Date Time Temp Pulse Resp B/P (MAP) Pulse Ox O2 Delivery O2 Flow Rate FiO2 11/10/18 05:00 76 16 113/69 (84) 95 Mechanical Ventilator 25.00 11/10/18 04:00 96 Mechanical Ventilator 25 11/10/18 04:00 75 15 133/75 (94) 97 Mechanical Ventilator 25.00 11/10/18 03:00 78 15 100/60 (73) 92 Mechanical Ventilator 25.00 11/10/18 02:15 76 16 94 25 11/10/18 02:00 75 16 98/64 (75) 94 Mechanical Ventilator 25.00 11/10/18 01:50 76 11/10/18 01:00 76 16 100/61 (74) 94 Mechanical Ventilator 25.00 11/10/18 00:28 96.1 76 16 128/66 95 Mechanical Ventilator 25.00 11/10/18 00:24 79 16 95 25 11/10/18 00:00 95 Mechanical Ventilator 25 11/10/18 00:00 74 15 120/64 (82) 95 Mechanical Ventilator 25.00 11/09/18 23:00 70 16 116/69 (85) 94 Mechanical Ventilator 25.00 11/09/18 22:10 66 16 94 25 11/09/18 22:00 66 15 129/79 (96) 94 Mechanical Ventilator 25.00 11/09/18 21:00 76 16 128/66 (86) 95 Mechanical Ventilator 25.00 11/09/18 20:20 67 16 96 25 11/09/18 20:00 67 16 94/52 (66) 96 Mechanical Ventilator 25.00 11/09/18 20:00 95 Mechanical Ventilator 25 11/09/18 19:51 96.1 67 16 91/69 (76) 96 Mechanical Ventilator 25.00 11/09/18 19:00 68 11/09/18 19:00 69 16 99/65 (76) 94 Mechanical Ventilator 25.00 11/09/18 18:43 69 16 94 25 11/09/18 18:21 69 99/53 11/09/18 18:00 67 16 94/57 (69) 96 Mechanical Ventilator 25.00 11/09/18 17:14 96.1 11/09/18 17:00 68 15 101/69 (80) 95 Mechanical Ventilator 25.00 11/09/18 16:12 71 16 97 25 11/09/18 16:00 71 15 95/68 (77) 98 Mechanical Ventilator 25.00 11/09/18 16:00 97 Mechanical Ventilator 25 11/09/18 15:00 73 15 92/55 (67) Mechanical Ventilator 25.00 11/09/18 14:14 95.9 71 16 106/54 99 Mechanical Ventilator 25 11/09/18 14:00 73 15 106/54 (71) 99 Mechanical Ventilator 25.00 11/09/18 13:52 96.2 74 16 104/66 98 Mechanical Ventilator 25 11/09/18 13:43 75 18 98 25 11/09/18 13:42 96.3 75 16 100/49 98 Mechanical Ventilator 25 11/09/18 13:23 78 11/09/18 13:00 77 13 105/80 (88) 98 Mechanical Ventilator 25.00 11/09/18 13:00 96.5 11/09/18 12:00 99 Mechanical Ventilator 25 11/09/18 12:00 77 17 85/61 (69) 100 Mechanical Ventilator 25.00 11/09/18 11:40 96.5 11/09/18 11:35 75 16 100 25 11/09/18 11:23 75 104/55 Mechanical Ventilator 11/09/18 11:00 76 21 83/59 (67) 100 Mechanical Ventilator 25.00 11/09/18 10:00 70 15 102/66 (78) 95 Mechanical Ventilator 25.00 11/09/18 09:38 73 16 94 25 11/09/18 09:00 75 15 113/47 (69) 93 Mechanical Ventilator 25.00 11/09/18 08:00 70 15 108/80 (89) 98 Mechanical Ventilator 25.00 11/09/18 08:00 95 Mechanical Ventilator 25 11/09/18 08:00 97.5 11/09/18 07:08 82 11/09/18 07:00 82 15 117/58 (77) 96 Mechanical Ventilator 25.00 11/09/18 06:33 98.1 82 16 121/68 95 Mechanical Ventilator 25.00 11/09/18 06:10 82 16 95 25 11/09/18 06:00 84 16 121/68 (85) 95 Mechanical Ventilator 25.00 I & O 11/10/18 07:00 Intake Total 1830 ml Output Total 1550 ml Balance 280 ml Height & Weight Height: 5'2.00" Weight: 199lbs. 3.0oz. 90.495821ng; 22.3 BMI Method:Actual General Appearance: Chronically ill, Thin, Other (intubated and sedated) HEENT: Normal ENT Inspection Neck: Normal Inspection, Non Tender Respiratory: Lungs Clear Cardiovascular: Regular Rate, Rhythm Capillary Refill: Less Than 3 Seconds Gastrointestinal: soft (drain serosanguineous) Extremity: Normal Inspection, Pedal Edema Neurologic/Psychiatric: No Alert (intubated and sedated) Skin: Pallor Lymphatic: No Adenopathy Results Lab Laboratory Tests 11/08/18 06:15 11/08/18 12:21 11/08/18 18:25 11/08/18 23:45 11/09/18 03:15 11/09/18 11:53 11/09/18 16:48 11/10/18 00:25 11/10/18 03:40 Assessment/Plan Assessment/Plan Acute respiratory failure -Continue ventilator care -Labs and CXR reviewed -Propofol, Fentanyl gtt Acute severe GIB - with PUD - s/p ex lap with ligation off gastroduodenal artery and repair of pyloric perforation. -I believe pt has had a total of 15units of PRBC, 6units of FFP, and 2 units of Platelets this admission -S/p EGD x 3 -Surgery following -Protonix gtt, Octreotide -H&H Q6 Tachycardia -Monitor Anemia -Monitor Metabolic lactic acidosis -Pt is no on D5W with 3 amps of bicarb at 100cc/hr -Monitor Hypernatremia -monitor -improving Hypotension -Pt is still on levophed, and Vasopressin -Monitor Left sided rib fractures s/p fall 2 mo ago -IS -Fall risk Pulmonary infiltrate -Monitor for now Small left pleural effusion -Monitor ARJUN MEADE DO Nov 10, 2018 05:31
--- NOTE | 2018-11-10 05:36 | Pulmonary Progress Note ---
Subjective Time Seen by a Provider: 05:41 Subjective/Events-last exam Pt sedated on vent. Sepsis Event Evaluation Height, Weight, BMI Height: 5'2.00" Weight: 199lbs. 3.0oz. 90.204922bp; 22.3 BMI Method:Actual Focused Exam Lactate Level 11/07/18 22:58: Lactic Acid Level 3.20*H 11/08/18 03:00: Lactic Acid Level 2.33*H 11/08/18 06:15: Lactic Acid Level 1.92 Exam Exam Vital Signs Date Time Temp Pulse Resp B/P (MAP) Pulse Ox O2 Delivery O2 Flow Rate FiO2 11/10/18 05:00 76 16 113/69 (84) 95 Mechanical Ventilator 25.00 11/10/18 04:00 96 Mechanical Ventilator 25 11/10/18 04:00 75 15 133/75 (94) 97 Mechanical Ventilator 25.00 11/10/18 03:00 78 15 100/60 (73) 92 Mechanical Ventilator 25.00 11/10/18 02:15 76 16 94 25 11/10/18 02:00 75 16 98/64 (75) 94 Mechanical Ventilator 25.00 11/10/18 01:50 76 11/10/18 01:00 76 16 100/61 (74) 94 Mechanical Ventilator 25.00 11/10/18 00:28 96.1 76 16 128/66 95 Mechanical Ventilator 25.00 11/10/18 00:24 79 16 95 25 11/10/18 00:00 95 Mechanical Ventilator 25 11/10/18 00:00 74 15 120/64 (82) 95 Mechanical Ventilator 25.00 11/09/18 23:00 70 16 116/69 (85) 94 Mechanical Ventilator 25.00 11/09/18 22:10 66 16 94 25 11/09/18 22:00 66 15 129/79 (96) 94 Mechanical Ventilator 25.00 11/09/18 21:00 76 16 128/66 (86) 95 Mechanical Ventilator 25.00 11/09/18 20:20 67 16 96 25 11/09/18 20:00 67 16 94/52 (66) 96 Mechanical Ventilator 25.00 11/09/18 20:00 95 Mechanical Ventilator 25 11/09/18 19:51 96.1 67 16 91/69 (76) 96 Mechanical Ventilator 25.00 11/09/18 19:00 68 4/24/19 19:00 69 16 99/65 (76) 94 Mechanical Ventilator 25.00 11/09/18 18:43 69 16 94 25 11/09/18 18:21 69 99/53 11/09/18 18:00 67 16 94/57 (69) 96 Mechanical Ventilator 25.00 11/09/18 17:14 96.1 11/09/18 17:00 68 15 101/69 (80) 95 Mechanical Ventilator 25.00 11/09/18 16:12 71 16 97 25 11/09/18 16:00 71 15 95/68 (77) 98 Mechanical Ventilator 25.00 11/09/18 16:00 97 Mechanical Ventilator 25 11/09/18 15:00 73 15 92/55 (67) Mechanical Ventilator 25.00 11/09/18 14:14 95.9 71 16 106/54 99 Mechanical Ventilator 25 11/09/18 14:00 73 15 106/54 (71) 99 Mechanical Ventilator 25.00 11/09/18 13:52 96.2 74 16 104/66 98 Mechanical Ventilator 25 11/09/18 13:43 75 18 98 25 11/09/18 13:42 96.3 75 16 100/49 98 Mechanical Ventilator 25 11/09/18 13:23 78 11/09/18 13:00 77 13 105/80 (88) 98 Mechanical Ventilator 25.00 11/09/18 13:00 96.5 11/09/18 12:00 99 Mechanical Ventilator 25 11/09/18 12:00 77 17 85/61 (69) 100 Mechanical Ventilator 25.00 11/09/18 11:40 96.5 11/09/18 11:35 75 16 100 25 11/09/18 11:23 75 104/55 Mechanical Ventilator 11/09/18 11:00 76 21 83/59 (67) 100 Mechanical Ventilator 25.00 11/09/18 10:00 70 15 102/66 (78) 95 Mechanical Ventilator 25.00 11/09/18 09:38 73 16 94 25 11/09/18 09:00 75 15 113/47 (69) 93 Mechanical Ventilator 25.00 11/09/18 08:00 70 15 108/80 (89) 98 Mechanical Ventilator 25.00 11/09/18 08:00 95 Mechanical Ventilator 25 4/24/19 08:00 97.5 11/09/18 07:08 82 11/09/18 07:00 82 15 117/58 (77) 96 Mechanical Ventilator 25.00 11/09/18 06:33 98.1 82 16 121/68 95 Mechanical Ventilator 25.00 11/09/18 06:10 82 16 95 25 11/09/18 06:00 84 16 121/68 (85) 95 Mechanical Ventilator 25.00 I & O 11/10/18 07:00 Intake Total 1830 ml Output Total 1550 ml Balance 280 ml Height & Weight Height: 5'2.00" Weight: 199lbs. 3.0oz. 90.949340hj; 22.3 BMI Method:Actual General Appearance: Chronically ill, Thin, Other (intubated and sedated) HEENT: Normal ENT Inspection Neck: Normal Inspection, Non Tender Respiratory: Lungs Clear Cardiovascular: Regular Rate, Rhythm Capillary Refill: Less Than 3 Seconds Gastrointestinal: soft (drain serosanguineous) Extremity: Normal Inspection, Pedal Edema Neurologic/Psychiatric: No Alert (intubated and sedated) Skin: Pallor Lymphatic: No Adenopathy Results Lab Laboratory Tests 11/08/18 06:15 11/08/18 12:21 11/08/18 18:25 11/08/18 23:45 11/09/18 03:15 11/09/18 11:53 11/09/18 16:48 11/10/18 00:25 11/10/18 03:40 Assessment/Plan Assessment/Plan Acute respiratory failure -Continue ventilator care -Will attempt weaning today. Start precedex and wean propofol down -Labs and CXR reviewed -Propofol, Fentanyl gtt Acute severe GIB - with PUD - s/p ex lap with ligation off gastroduodenal artery and repair of pyloric perforation. -Repeat PT/INR, PTT - total of 16units of PRBC, 6units of FFP, and 2 units of Platelets this admission -S/p EGD x 3 -Surgery following -Protonix gtt, Octreotide -H&H Q6 Tachycardia -Monitor Anemia -Monitor Metabolic lactic acidosis- resolved - change Bicarb gtt to LR -Monitor Hypokalemia, hypomag, hypophos -replace Hypernatremia -monitor -improving Hypotension -Pt is still on levophed-- wean -Monitor Left sided rib fractures s/p fall 2 mo ago -IS -Fall risk Pulmonary infiltrate -Monitor for now Small left pleural effusion -Monitor ARJUN MEADE DO Nov 10, 2018 05:36
[2018-11-10] MEDS ORDERED: POTASSIUM PHOSPHATE INJ 30 MM in NS (IVPB) 250 ML IV ONE (05:45)
[2018-11-10] MEDS: POTASSIUM CL 10MEQ/50ML IVPB 50 ML IV SCH ×5 (06:16→09:05)
[2018-11-10] MEDS: KCL 20 MEQ TAB (K-DUR) PO SCH (06:17)
[2018-11-10] MEDS: FOLIC ACID 1 MG TAB PO SCH (06:17)
[2018-11-10] MEDS: CALCIUM CARB + VIT D 600 MG (CALCARB + D) TAB PO SCH (06:17)
[2018-11-10] MEDS: MULTIVIT W/MINERALS TAB (THERAGRAN M) PO SCH (06:17)
[2018-11-10] MEDS: MAGNESIUM 1 GM/100 ML IVPB 100 ML IV SCH ×4 (06:17→10:17)
[2018-11-10] MEDS: VITAMIN D3 1,000 UNITS (CHOLECALCIFEROL) TABLET PO SCH (06:17)
[2018-11-10] MEDS ORDERED: LACTATED RINGERS 1,000 ML IV SCH (06:30)
[2018-11-10] MEDS ORDERED: POTASSIUM CL 10MEQ/50ML IVPB 50 ML IV SCH (06:30)
[2018-11-10] MEDS: ceFAZolin INJECTION 1,000 MG in WATER (STERILE) FOR INJECTION 10 ML IV SCH ×3 (06:56→21:35)
[2018-11-10] MEDS: metroNIDAZOLE 500MG/100ML IVPB 100 ML IV SCH ×3 (06:56→21:35)
[2018-11-10] MEDS: SUCRALFATE 1 GM (CARAFATE) TAB PO SCH ×4 (06:57→21:35)
[2018-11-10] MEDS: DEXMEDETOMIDINE INJECTION 200 MCG in NS (IVPB) 50 ML IV SCH ×2 (07:03→10:24)
[2018-11-10] MEDS: POTASSIUM CHLORIDE IV SCH ×4 (07:24→16:44)
[2018-11-10] MEDS: LACTATED RINGERS IV SCH ×4 (07:24→16:44)
--- NOTE | 2018-11-10 07:49 | Diagnostic Imaging Report ---
Indication: Dyspnea. Comparison made with prior examination from 11/09/2018. Findings: There is cardiomegaly. There is some venous congestion. There is bilateral airspace disease. There are bilateral pleural effusions. There is no pneumothorax. ET and NG tubes remain in place. Impression: Persistent bilateral airspace disease with bilateral pleural effusions. Cardiomegaly and some central pulmonary venous congestion. Dictated by: Dictated on workstation # [id number]
--- NOTE | 2018-11-10 08:28 | Cardiology Progress Note ---
Cardiology SOAP Progress Note Subjective: Intubated/ventilated Objective: I&O/Vital Signs 11/09/18 11/09/18 11/09/18 11/09/18 21:00 22:00 22:10 23:00 Pulse 76 66 66 70 Resp 16 15 16 16 B/P (MAP) 128/66 (86) 129/79 (96) 116/69 (85) Pulse Ox 95 94 94 94 O2 Delivery Mechanical Ventilator Mechanical Ventilator Mechanical Ventilator O2 Flow Rate 25.00 25.00 25.00 FiO2 25 11/10/18 11/10/18 11/10/18 11/10/18 00:00 00:00 00:24 00:28 Temp 96.1 Pulse 74 79 76 Resp 15 16 16 B/P (MAP) 120/64 (82) 128/66 Pulse Ox 95 95 95 95 O2 Delivery Mechanical Ventilator Mechanical Ventilator Mechanical Ventilator O2 Flow Rate 25.00 25.00 FiO2 25 25 11/10/18 11/10/18 11/10/18 11/10/18 01:00 01:50 02:00 02:15 Pulse 76 76 75 76 Resp 16 16 16 B/P (MAP) 100/61 (74) 98/64 (75) Pulse Ox 94 94 94 O2 Delivery Mechanical Ventilator Mechanical Ventilator O2 Flow Rate 25.00 25.00 FiO2 25 11/10/18 11/10/18 11/10/18 11/10/18 03:00 04:00 04:00 05:00 Pulse 78 75 76 Resp 15 15 16 B/P (MAP) 100/60 (73) 133/75 (94) 113/69 (84) Pulse Ox 92 97 96 95 O2 Delivery Mechanical Ventilator Mechanical Ventilator Mechanical Ventilator Mechanical Ventilator O2 Flow Rate 25.00 25.00 25.00 FiO2 25 11/10/18 11/10/18 11/10/18 11/10/18 06:00 06:31 07:00 07:00 Pulse 76 77 74 75 Resp 15 16 16 B/P (MAP) 103/84 (90) 135/90 (105) Pulse Ox 96 96 95 O2 Delivery Mechanical Ventilator Mechanical Ventilator O2 Flow Rate 25.00 25.00 FiO2 25 11/10/18 08:00 Pulse 75 Resp 15 B/P (MAP) 121/69 (86) Pulse Ox 95 O2 Delivery Mechanical Ventilator O2 Flow Rate 25.00 11/10/18 00:00 Intake Total 580 ml Output Total 675 ml Balance -95 ml Weight (Pounds): 203 Weight (Ounces): 3.0 Weight (Calculated Kilograms): 92.630999 Constitutional: appears stated age, well-developed, well-nourished, other ( intubated/ventilated.) Respiratory: rhonchi, other (ventilated.) Cardiovascular: regular rate-rhythm; No irregularly irregular, No extra beats, No parasternal heave is noted, No JVD, No edema, No bradycardia, No tachycardia , No point of maximal impulse, No cardiac thrills are palpable; S1 and S2; No gallop/S3, No gallop/S4, No diastolic murmur, No systolic murmur, No friction rub, No click, No other Gastrointestional: No tender; soft; No round, No distended, No pulsatile mass, No organomegaly, No guarding, No rebound, No tenderness, No hernia, No mass, No audible bowel sounds, No abnormal bowel sounds, No abdominal bruits, No spleenomegaly, No other Extremities: No normal range of motion, No non-tender, No normal inspection, No pedal edema, No calf tenderness, No normal capillary refill, No pelvis stable , No calf tenderness, No inflammation, No pedal edema, No slow capillary refill , No swelling, No other, No abrasion, No clubbing, No cyanosis, No ecchymosis, No laceration, No no lower extremity edema bilateral, No significant edema, No tenderness, No wound Neurologic/Psychiatric: alert, oriented x 3, power is 5/5 both on sides Skin: pallor; No rash, No ulcerations Results/Procedures: Labs Laboratory Tests 11/09/18 11:14: Glucometer 175H 11/09/18 11:53: Hemoglobin 7.4L, Hematocrit 22L 11/09/18 16:45: Glucometer 204H 11/09/18 16:48: Hemoglobin 8.7L, Hematocrit 26L 11/09/18 20:03: Glucometer 182H 11/10/18 00:20: Glucometer 97 11/10/18 00:25: Hemoglobin 9.8L, Hematocrit 29L 11/10/18 03:40: Hemoglobin 10.0L, Hematocrit 29L, White Blood Count 8.5, Red Blood Count 3.35L, Mean Corpuscular Volume 88, Mean Corpuscular Hemoglobin 30, Mean Corpuscular Hemoglobin Concent 34, Red Cell Distribution Width 16.4H, Platelet Count 167, Mean Platelet Volume 10.4, Neutrophils (%) (Auto) 80H, Lymphocytes (%) (Auto) 7L , Monocytes (%) (Auto) 7, Eosinophils (%) (Auto) 7, Basophils (%) (Auto) 0, Neutrophils # (Auto) 6.8, Lymphocytes # (Auto) 0.6L, Monocytes # (Auto) 0.6, Eosinophils # (Auto) 0.6H, Basophils # (Auto) 0.0, Sodium Level 143, Potassium Level 3.1L, Chloride Level 107, Carbon Dioxide Level 27, Anion Gap 9, Blood Urea Nitrogen 7, Creatinine 0.49L, Estimat Glomerular Filtration Rate > 60, BUN/ Creatinine Ratio 14, Glucose Level 136H, Calcium Level 6.7L, Phosphorus Level 1.7L, Magnesium Level 1.7L 11/10/18 04:25: Blood Gas Puncture Site RIGHT BRACHIAL, Blood Gas Patient Temperature 97.5, Arterial Blood pH 7.53H, Arterial Blood Partial Pressure CO2 37, Arterial Blood Partial Pressure O2 66L, Arterial Blood HCO3 31H, Arterial Blood Total CO2 32.1H , Arterial Blood Oxygen Saturation 95, Arterial Blood Base Excess 7.6H, Jackson Test POSITIVE, Blood Gas Ventilator Setting YES, Blood Gas Inspired Oxygen 25% FIO2 Microbiology 11/02/18 MRSA Screen - Final, Complete MRSA not isolated A/P: Assessment/Dx: Severe GI bleeding, anemia, Severe respiratory failure Plan: Severe GI bleeding, transfusion with PRBCs, status post upper and lower GI endoscopy. Severe respiratory failure -intubated/ventilated. Likely extubation today. Echocardiogram done 11/04/2018 shows normal LV function with mild to moderate LVH , moderate to severe pulmonary hypertension. Collapsed IVC suggesting significant volume depletion. Sinus tachycardia, resolved. Thank you for your consultation. Please call me if you have any questions. Belinda Thrasher MD, FACP, FACC, FSCAI, FHRS, CCDS Interventional Cardiology Cardiac Electrophysiology Vascular Medicine and Endovascular Interventions Focused Exam Lactate Level 11/07/18 22:58: Lactic Acid Level 3.20*H 11/08/18 03:00: Lactic Acid Level 2.33*H 11/08/18 06:15: Lactic Acid Level 1.92 Yan THRASHER MD Nov 10, 2018 8:28 am
[2018-11-10 09:27] LABS: INR 1.3 (0.8-1.4); PROTHROMBIN TIME PATIENT 17.1 SEC (12.2-14.7)
--- NOTE | 2018-11-10 10:00 | Progress Note-Hospitalist ---
Subjective HPI/CC On Admission Date Seen by Provider: Nov 10, 2018 Time Seen by Provider: 09:00 CC: GI Bleed HPI: This is a 78-year-old white female who sees Dr. Ruggiero who presented to the [place] ER with hematemesis and melena and hematochezia. She was not maintained on any blood thinners anticoagulation studies were normal and had never had a GI bleed before. Repeat hemoglobin was 5.8 patient was given 2 units of packed red blood cells and Dr. Bautista was consulted. Patient had no significant decompensation during the hospital stay in the ICU or she was admitted to due to severe GI bleed. Dr. Lozada was consulted. She will have EGD and colonoscopy tomorrow by Dr. Bautista. [place] but now I hear she's from [facility] in [place] where she was on skilled care so unsure if she is confused or just a temporary stay at [facility] but I would assume she would've told me she was from a care home where she lives currently. Subjective/Events-last exam Placed back on Levophed pressor therapy. Gave one unit of blood yesterday Hgb 10 and stable. Anasarca noted with volume overload. Pt maintains intubation. Poor prognosis senior care. Focused Exam Lactate Level 11/07/18 22:58: Lactic Acid Level 3.20*H 11/08/18 03:00: Lactic Acid Level 2.33*H 11/08/18 06:15: Lactic Acid Level 1.92 Objective Exam Vital Signs Vital Signs Date Time Temp Pulse Resp B/P (MAP) Pulse Ox O2 Delivery O2 Flow Rate FiO2 11/10/18 18:00 75 15 91/54 (66) 94 Mechanical Ventilator 25.00 11/10/18 16:03 25 11/10/18 16:02 96.7 Capillary Refill : Greater Than 3 SecondsLess Than 3 Seconds General Appearance: Chronically ill, Thin, Other (intubated and sedated) HEENT: Normal ENT Inspection Neck: Normal Inspection, Non Tender Respiratory: Lungs Clear Cardiovascular: Regular Rate, Rhythm Gastrointestinal: Normal Bowel Sounds, No Organomegaly, No Pulsatile Mass, Non Tender, Soft Back: Normal Inspection, No CVA Tenderness, No Vertebral Tenderness Extremity: Normal Inspection, Pedal Edema Neurologic/Psychiatric: No Alert (intubated and sedated) Skin: Pallor Lymphatic: No Adenopathy Results/Procedures Lab Laboratory Tests 11/10/18 00:25 11/10/18 03:40 Patient resulted labs reviewed. Imaging: Reviewed Imaging Report Assessment/Plan Assessment and Plan Assess & Plan/Chief Complaint Assessment: Acute respiratory failure needing ICU transfer and intubation GI Bleed EGD x 4 total then s/p surgical repair Pyloric ulcer actively bleeding Dementia Debility Plan: ICU Intubation EGD Prognosis guarded Critical Care Critically Ill Patient Diagnosis/Problems Diagnosis/Problems (1) Ventilator dependence Status: Acute (2) Respiratory failure Status: Acute Qualifiers: Chronicity: acute Respiratory failure complication: hypoxia Qualified Codes: J96.01 - Acute respiratory failure with hypoxia (3) Anemia due to acute blood loss Status: Acute (4) GERD (gastroesophageal reflux disease) Status: Chronic Qualifiers: Esophagitis presence: without esophagitis Qualified Codes: K21.9 - Gastro- esophageal reflux disease without esophagitis (5) Dementia Status: Chronic Qualifiers: Dementia type: Alzheimer's disease Alzheimer's disease onset: unspecified onset Dementia behavioral disturbance: without behavioral disturbance Qualified Codes: G30.9 - Alzheimer's disease, unspecified; F02.80 - Dementia in other diseases classified elsewhere without behavioral disturbance (6) Acute GI bleeding Status: Acute (7) Weakness Status: Acute (8) Transfusion of blood during current hospitalization Status: Acute (9) Pyloric ulcer Status: Acute Qualifiers: Gastric ulcer chronicity: acute Qualified Codes: K25.3 - Acute gastric ulcer without hemorrhage or perforation Clinical Quality Measures DVT/VTE Risk/Contraindication: Risk Factor Score Per Nursin RFS Level Per Nursing on Admit: 4+=Very High Contraindications-Pharm: Other *list below* Other: gi bleed BO SUÁREZ DO Nov 10, 2018 10:00
--- NOTE | 2018-11-10 10:46 | NUR ---
Dr. Talamantes at bedside at this time. Updates provided to Aubrey () also at bedside during this time. VSS. IVs continuing to infuse. Pt shows no signs of waking up at this time. Will continue to decrease sedation.
[2018-11-10] MEDS: NOREPINEPHRINE 8 MG in NS (IVPB) 250 ML IV SCH (11:49)
--- NOTE | 2018-11-10 15:24 | Progress Note ---
Subjective Date Seen by a Provider: Nov 10, 2018 Time Seen by a Provider: 09:12 Subjective/Events-last exam intubated and sedated. transfuse 1 units prbc. Minimal Levophed. Urine output increasing. Family at bedside. Hgb 10. Focused Exam Lactate Level 11/07/18 22:58: Lactic Acid Level 3.20*H 11/08/18 03:00: Lactic Acid Level 2.33*H 11/08/18 06:15: Lactic Acid Level 1.92 Objective Exam Vital Signs Date Time Temp Pulse Resp B/P (MAP) Pulse Ox O2 Delivery O2 Flow Rate FiO2 11/10/18 15:00 72 15 84/22 (42) 95 Mechanical Ventilator 25.00 11/10/18 14:42 71 16 95 25 11/10/18 14:00 68 16 88/63 (71) 99 Mechanical Ventilator 25.00 11/10/18 13:00 66 12 90/63 (72) 98 Mechanical Ventilator 25.00 11/10/18 12:46 65 11/10/18 12:00 63 16 97/70 (79) 98 Mechanical Ventilator 25.00 11/10/18 12:00 99 Mechanical Ventilator 25 11/10/18 11:49 95.7 11/10/18 11:00 65 16 97/63 (74) 98 Mechanical Ventilator 25.00 11/10/18 10:35 65 16 98 25 11/10/18 10:00 64 35 95/66 (76) 94 Mechanical Ventilator 25.00 11/10/18 09:00 96.3 11/10/18 09:00 67 16 104/80 (88) 98 Mechanical Ventilator 25.00 11/10/18 08:00 99 Mechanical Ventilator 25 11/10/18 08:00 75 15 121/69 (86) 95 Mechanical Ventilator 25.00 11/10/18 07:00 75 16 135/90 (105) 95 Mechanical Ventilator 25.00 11/10/18 07:00 74 11/10/18 06:31 77 16 96 25 11/10/18 06:00 76 15 103/84 (90) 96 Mechanical Ventilator 25.00 11/10/18 05:00 76 16 113/69 (84) 95 Mechanical Ventilator 25.00 11/10/18 04:00 96 Mechanical Ventilator 25 11/10/18 04:00 75 15 133/75 (94) 97 Mechanical Ventilator 25.00 11/10/18 03:00 78 15 100/60 (73) 92 Mechanical Ventilator 25.00 11/10/18 02:15 76 16 94 25 11/10/18 02:00 75 16 98/64 (75) 94 Mechanical Ventilator 25.00 11/10/18 01:50 76 11/10/18 01:00 76 16 100/61 (74) 94 Mechanical Ventilator 25.00 11/10/18 00:28 96.1 76 16 128/66 95 Mechanical Ventilator 25.00 11/10/18 00:24 79 16 95 25 11/10/18 00:00 95 Mechanical Ventilator 25 11/10/18 00:00 74 15 120/64 (82) 95 Mechanical Ventilator 25.00 11/09/18 23:00 70 16 116/69 (85) 94 Mechanical Ventilator 25.00 11/09/18 22:10 66 16 94 25 11/09/18 22:00 66 15 129/79 (96) 94 Mechanical Ventilator 25.00 11/09/18 21:00 76 16 128/66 (86) 95 Mechanical Ventilator 25.00 11/09/18 20:20 67 16 96 25 11/09/18 20:00 67 16 94/52 (66) 96 Mechanical Ventilator 25.00 11/09/18 20:00 95 Mechanical Ventilator 25 11/09/18 19:51 96.1 67 16 91/69 (76) 96 Mechanical Ventilator 25.00 11/09/18 19:00 68 11/09/18 19:00 69 16 99/65 (76) 94 Mechanical Ventilator 25.00 11/09/18 18:43 69 16 94 25 11/09/18 18:21 69 99/53 11/09/18 18:00 67 16 94/57 (69) 96 Mechanical Ventilator 25.00 11/09/18 17:14 96.1 11/09/18 17:00 68 15 101/69 (80) 95 Mechanical Ventilator 25.00 11/09/18 16:12 71 16 97 25 11/09/18 16:00 71 15 95/68 (77) 98 Mechanical Ventilator 25.00 11/09/18 16:00 97 Mechanical Ventilator 25 I & O 11/10/18 07:00 Intake Total 4255 ml Output Total 1750 ml Balance 2505 ml Capillary Refill : Greater Than 3 SecondsLess Than 3 Seconds General Appearance: Chronically ill, Thin, Other (intubated and sedated) HEENT: Normal ENT Inspection Neck: Normal Inspection, Non Tender Respiratory: Lungs Clear Cardiovascular: Regular Rate, Rhythm Gastrointestinal: soft (drain serosanguineous incisions no signs of infection) Extremity: Normal Inspection, Pedal Edema Neurologic/Psychiatric: No Alert (intubated and sedated) Skin: Pallor Lymphatic: No Adenopathy Results Lab Laboratory Tests 11/09/18 16:45: Glucometer 204H 11/09/18 16:48: Hemoglobin 8.7L, Hematocrit 26L 11/09/18 20:03: Glucometer 182H 11/10/18 00:20: Glucometer 97 11/10/18 00:25: Hemoglobin 9.8L, Hematocrit 29L 11/10/18 03:40: Hemoglobin 10.0L, Hematocrit 29L, White Blood Count 8.5, Red Blood Count 3.35L, Mean Corpuscular Volume 88, Mean Corpuscular Hemoglobin 30, Mean Corpuscular Hemoglobin Concent 34, Red Cell Distribution Width 16.4H, Platelet Count 167, Mean Platelet Volume 10.4, Neutrophils (%) (Auto) 80H, Lymphocytes (%) (Auto) 7L , Monocytes (%) (Auto) 7, Eosinophils (%) (Auto) 7, Basophils (%) (Auto) 0, Neutrophils # (Auto) 6.8, Lymphocytes # (Auto) 0.6L, Monocytes # (Auto) 0.6, Eosinophils # (Auto) 0.6H, Basophils # (Auto) 0.0, Sodium Level 143, Potassium Level 3.1L, Chloride Level 107, Carbon Dioxide Level 27, Anion Gap 9, Blood Urea Nitrogen 7, Creatinine 0.49L, Estimat Glomerular Filtration Rate > 60, BUN/ Creatinine Ratio 14, Glucose Level 136H, Calcium Level 6.7L, Phosphorus Level 1.7L, Magnesium Level 1.7L 11/10/18 04:25: Blood Gas Puncture Site RIGHT BRACHIAL, Blood Gas Patient Temperature 97.5, Arterial Blood pH 7.53H, Arterial Blood Partial Pressure CO2 37, Arterial Blood Partial Pressure O2 66L, Arterial Blood HCO3 31H, Arterial Blood Total CO2 32.1H , Arterial Blood Oxygen Saturation 95, Arterial Blood Base Excess 7.6H, Jackson Test POSITIVE, Blood Gas Ventilator Setting YES, Blood Gas Inspired Oxygen 25% FIO2 11/10/18 08:23: Glucometer 125H 11/10/18 09:09: Prothrombin Time 17.1H, INR Comment 1.3, Activated Partial Thromboplast Time 43H 11/10/18 12:46: Glucometer 135H Microbiology 11/02/18 MRSA Screen - Final, Complete MRSA not isolated Assessment/Plan Assessment/Plan Assessment/Plan hematemesis melena upper gi bleed pyloric ulcers severe anemia Status post exploratory laparotomy pyloromyotomy controlled gastroduodenal artery closure of perforated pyloric ulcer Patient transfused 1 units prbc hgb 10. She still intubated and sedated trying to wean. Nothing by mouth Griffith for accurate I's and O's Patient critical. Massive transfusion protocol used. Protonix/Octreotide drip. On Ancef and Flagyl since the bowels were opened and concern for contamination when opened bowel. Weaning Levophed as tolerates. Continue medical management. Clinical Quality Measures DVT/VTE Risk/Contraindication: Risk Factor Score Per Nursin RFS Level Per Nursing on Admit: 4+=Very High Contraindications-Pharm: Other *list below* Other: gi bleed ROBERT MARSH DO Nov 10, 2018 15:24
[2018-11-10] MEDS: ATENOLOL 25 MG (TENORMIN) TAB PO SCH (20:01)
[2018-11-11] VITALS (33 sets, daily range): BP systolic 80–130; BP diastolic 40–89
[2018-11-11] MEDS: inSUlin ASPART (NovoLOG) 1 UNIT/0.01 ML (CHARGE PER UNIT) SC SCH ×6 (00:17→20:24)
[2018-11-11] MEDS: PANTOPRAZOLE INJECTION 200 MG in NS (IVPB) 100 ML IV SCH (00:57)
[2018-11-11] MEDS: DEXMEDETOMIDINE INJECTION 200 MCG in NS (IVPB) 50 ML IV SCH (01:02)
[2018-11-11] MEDS: NOREPINEPHRINE 8 MG in NS (IVPB) 250 ML IV SCH ×2 (02:40→15:40)
[2018-11-11 03:25] LABS: BASOPHILS % (AUTO) 0 % (0-10); EOSINOPHILS # (AUTO) 0.1 10^3/uL (0.0-0.3); EOSINOPHILS % (AUTO) 1 % (0-10); HEMATOCRIT 32 % (35-52); HEMOGLOBIN 10.8 G/DL (11.5-16.0); LYMPHOCYTES # (AUTO) 0.8 X 10^3 (1.0-4.0); LYMPHOCYTES % (AUTO) 9 % (12-44); MEAN CORPUSCULAR HEMOGLOBIN 30 PG (25-34); MEAN CORPUSCULAR HGB CONC 34 G/DL (32-36); MEAN CORPUSCULAR VOLUME 89 FL (80-99); MEAN PLATELET VOLUME 10.2 FL (7.4-10.4); MONOCYTES # (AUTO) 0.9 X 10^3 (0.0-1.0); MONOCYTES % (AUTO) 10 % (0-12); NEUTROPHILS # (AUTO) 7.1 X 10^3 (1.8-7.8); NEUTROPHILS % (AUTO) 80 % (42-75); PLATELET COUNT 207 10^3/uL (130-400); RED CELL DISTRIBUTION WIDTH 16.4 % (10.0-14.5); WHITE BLOOD COUNT 8.9 10^3/uL (4.3-11.0)
[2018-11-11 03:42] LABS: BUN/CREATININE RATIO 17; CALCIUM 6.9 MG/DL (8.5-10.1); CARBON DIOXIDE 26 MMOL/L (21-32); CHLORIDE 108 MMOL/L (98-107); CREATININE SERUM 0.52 MG/DL (0.60-1.30); GFR ESTIMATED > 60; GLUCOSE 154 MG/DL (70-105); MAGNESIUM 1.9 MG/DL (1.8-2.4); PHOSPHORUS 2.8 MG/DL (2.3-4.7); POTASSIUM 4.6 MMOL/L (3.6-5.0); SODIUM 142 MMOL/L (135-145)
[2018-11-11] MEDS: LACTATED RINGERS IV SCH ×2 (04:17)
[2018-11-11] MEDS: POTASSIUM CHLORIDE IV SCH ×2 (04:17)
[2018-11-11] MEDS: POTASSIUM CL 10MEQ/50ML IVPB 50 ML IV SCH (04:20)
[2018-11-11] MEDS: KCL 20 MEQ TAB (K-DUR) PO SCH (04:20)
[2018-11-11] MEDS: MAGNESIUM 1 GM/100 ML IVPB 100 ML IV SCH (04:20)
[2018-11-11] MEDS: MULTIVIT W/MINERALS TAB (THERAGRAN M) PO SCH (04:21)
[2018-11-11 04:25] LABS: ABG BASE EXCESS 4.6 MMOL/L (-2.5-2.5); ABG OXYGEN SATURATION 96 % (94-100); ABG PCO2 35 MMHG (35-45); ABG PH 7.51 (7.37-7.43); ABG PO2 78 MMHG (79-93); ABG TCO2 28.8 MMOL/L (21.0-31.0)
[2018-11-11 04:26] LABS: ALLENS TEST POSITIVE; INSPIRED O2 30% FIO2; PATIENT TEMP 98.9; VENTILATOR YES
[2018-11-11 04:57] LABS: ATYPICAL LYMPHOCYTES 4 %; EOSINOPHILS % (MANUAL) 2 %; LYMPHOCYTES % (MANUAL) 2 %; MONOCYTES % (MANUAL) 9 %; NEUTROPHILS % (MANUAL) 83 %
--- NOTE | 2018-11-11 05:50 | Pulmonary Progress Note ---
Subjective Time Seen by a Provider: 08:19 Subjective/Events-last exam Pt is still sedated on vent. Sepsis Event Evaluation Height, Weight, BMI Height: 5'2.00" Weight: 203lbs. 3.0oz. 92.366493ir; 22.3 BMI Method:Actual Focused Exam Lactate Level 11/08/18 06:15: Lactic Acid Level 1.92 Exam Exam Vital Signs Date Time Temp Pulse Resp B/P (MAP) Pulse Ox O2 Delivery O2 Flow Rate FiO2 11/11/18 05:00 80 15 92/47 (62) 97 Mechanical Ventilator 35.00 11/11/18 04:36 82 16 97 35 11/11/18 04:25 84 12 94 35 11/11/18 04:00 98.9 81 16 90/48 (62) 97 Mechanical Ventilator 35.00 11/11/18 04:00 97 Mechanical Ventilator 35 11/11/18 03:00 84 15 100/52 (68) 96 Mechanical Ventilator 25.00 11/11/18 02:15 82 16 107/52 (70) 96 Mechanical Ventilator 25.00 11/11/18 01:45 84 16 99/50 (66) 96 Mechanical Ventilator 25.00 11/11/18 01:00 84 15 99/53 (68) 96 Mechanical Ventilator 25.00 11/11/18 01:00 84 11/11/18 00:07 98 16 92 35 11/11/18 00:00 79 16 108/55 (72) 100 Mechanical Ventilator 25.00 11/11/18 00:00 99.1 11/11/18 00:00 93 Mechanical Ventilator 35 11/10/18 23:00 77 15 100/49 (66) 96 Mechanical Ventilator 25.00 11/10/18 22:00 105 13 100/47 (64) 94 Mechanical Ventilator 25.00 11/10/18 21:49 87 18 93 25 11/10/18 21:00 89 18 118/69 (85) 91 Mechanical Ventilator 25.00 11/10/18 20:00 96 Mechanical Ventilator 25 11/10/18 20:00 80 15 91/56 (68) 92 Mechanical Ventilator 25.00 11/10/18 20:00 98.7 11/10/18 19:19 77 16 92 25 11/10/18 19:00 77 11/10/18 19:00 77 16 91/51 (64) 93 Mechanical Ventilator 25.00 11/10/18 18:00 75 15 91/54 (66) 94 Mechanical Ventilator 25.00 11/10/18 17:00 76 16 92/49 (63) 95 Mechanical Ventilator 25.00 11/10/18 16:03 73 16 95 25 11/10/18 16:02 96.7 11/10/18 16:00 96 Mechanical Ventilator 25 11/10/18 16:00 73 15 91/45 (60) 95 Mechanical Ventilator 25.00 11/10/18 15:00 72 15 84/22 (42) 95 Mechanical Ventilator 25.00 11/10/18 14:42 71 16 95 25 11/10/18 14:00 68 16 88/63 (71) 99 Mechanical Ventilator 25.00 11/10/18 13:00 66 12 90/63 (72) 98 Mechanical Ventilator 25.00 11/10/18 12:46 65 11/10/18 12:00 63 16 97/70 (79) 98 Mechanical Ventilator 25.00 11/10/18 12:00 99 Mechanical Ventilator 25 11/10/18 11:49 95.7 11/10/18 11:00 65 16 97/63 (74) 98 Mechanical Ventilator 25.00 11/10/18 10:35 65 16 98 25 11/10/18 10:00 64 35 95/66 (76) 94 Mechanical Ventilator 25.00 11/10/18 09:00 96.3 11/10/18 09:00 67 16 104/80 (88) 98 Mechanical Ventilator 25.00 11/10/18 08:00 99 Mechanical Ventilator 25 11/10/18 08:00 75 15 121/69 (86) 95 Mechanical Ventilator 25.00 11/10/18 07:00 75 16 135/90 (105) 95 Mechanical Ventilator 25.00 11/10/18 07:00 74 11/10/18 06:31 77 16 96 25 11/10/18 06:00 76 15 103/84 (90) 96 Mechanical Ventilator 25.00 I & O 11/11/18 07:00 Intake Total 1198 ml Output Total 1935 ml Balance -737 ml Height & Weight Height: 5'2.00" Weight: 203lbs. 3.0oz. 92.693668zd; 22.3 BMI Method:Actual General Appearance: Chronically ill, Thin, Other (intubated and sedated) HEENT: Normal ENT Inspection Neck: Normal Inspection, Non Tender Respiratory: Lungs Clear Cardiovascular: Regular Rate, Rhythm Capillary Refill: Less Than 3 Seconds Gastrointestinal: soft (drain serosanguineous incisions no signs of infection) Extremity: Normal Inspection, Pedal Edema Neurologic/Psychiatric: No Alert (intubated and sedated) Skin: Pallor Lymphatic: No Adenopathy Results Lab Laboratory Tests 11/09/18 11:53 11/09/18 16:48 11/10/18 00:25 11/10/18 03:40 11/11/18 03:15 Assessment/Plan Assessment/Plan Acute respiratory failure -Continue ventilator care -Will attempt weaning today.- doubtful pt will extubate today -Decrease RR to 12 -Start TF at slow rate -Labs and CXR reviewed -D/C Propofol, Fentanyl gtt, Precedex and await pt to wake up. Acute severe GIB - with PUD - s/p ex lap with ligation off gastroduodenal artery and repair of pyloric perforation. - total of 16units of PRBC, 6units of FFP, and 2 units of Platelets this admission -S/p EGD x 3 -Surgery following -Protonix gtt, Octreotide -H&H Q6 Atelectasis -Monitor Anasarca - multifactorial -Will give albumin Q8 x 3 Protein dilan malnutrition -check albumin and prealbumin -Start TF when ok with surgery Tachycardia -Monitor Anemia -Monitor Metabolic lactic acidosis- resolved - change Bicarb gtt to LR -Monitor Hypokalemia, hypomag, hypophos -replace Hypernatremia -monitor -improving Hypotension -Pt is still on levophed-- wean -Monitor Left sided rib fractures s/p fall 2 mo ago -IS -Fall risk Pulmonary infiltrate -Monitor for now Small left pleural effusion -Monitor ARJUN MEADE DO Nov 11, 2018 05:50
[2018-11-11] MEDS: ceFAZolin INJECTION 1,000 MG in WATER (STERILE) FOR INJECTION 10 ML IV SCH ×3 (06:00→22:58)
[2018-11-11] MEDS: metroNIDAZOLE 500MG/100ML IVPB 100 ML IV SCH ×3 (06:00→22:58)
[2018-11-11] MEDS: SUCRALFATE 1 GM (CARAFATE) TAB PO SCH ×4 (06:01→20:24)
[2018-11-11] MEDS ORDERED: ALBUMIN IV ONE (06:10)
[2018-11-11] MEDS: ALBUMIN 25% 25 GM/100 ML 100 ML IV SCH ×3 (06:18→22:58)
[2018-11-11 07:00] LABS: ALANINE AMINOTRANSFERASE 17 U/L (0-55); ALBUMIN 1.4 GM/DL (3.2-4.5); ALKALINE PHOSPHATASE 96 U/L (40-136); AMMONIA 22 UMOL/L (11-32); BILIRUBIN,TOTAL 3.3 MG/DL (0.1-1.0); BUN/CREATININE RATIO 19; CALCIUM 6.8 MG/DL (8.5-10.1); CARBON DIOXIDE 25 MMOL/L (21-32); CHLORIDE 106 MMOL/L (98-107); CREATININE SERUM 0.53 MG/DL (0.60-1.30); GFR ESTIMATED > 60; GLUCOSE 161 MG/DL (70-105); POTASSIUM 4.5 MMOL/L (3.6-5.0); SODIUM 141 MMOL/L (135-145); TOTAL PROTEIN 3.5 GM/DL (6.4-8.2)
[2018-11-11] MEDS: OCTREOTIDE INJECTION 500 MCG in NS (IVPB) 99 ML IV SCH ×2 (07:04→17:21)
--- NOTE | 2018-11-11 07:51 | Diagnostic Imaging Report ---
Clinical indication: Followup exam. Patient on ventilator. Acute GI bleed. Exam: Portable chest x-ray upright view. Comparisons: Chest x-ray dated 11/10/2018. Findings: ET tube seen in stable position with tip grossly 8 mm from the expected region of the maikel. This tube should be withdrawn at least 3 cm to ensure appropriate positioning. Orogastric feeding tube again seen with its distal portion incompletely visualized, but is below the level of the diaphragm. Left central line again seen with tip overlying the proximal superior vena cava. Again seen bilateral pleural effusions. There are bilateral patchy lung infiltrates and areas of consolidation which has slightly improved in the left midlung field and progressed in the right upper lobe. Pulmonary vasculature and cardiac silhouettes within normal limits. The remainder of this exam shows no significant interval change compared to the prior study of comparison. Impression: 1: ET tube is again seen close to the maikel. This tube should be withdrawn at least 3 cm to ensure good position. Remainder the lines and tubes in good position. 2: Bilateral lung infiltrates which has progressed in the right upper lobe and has improved in the left midlung field. 3: Bilateral pleural effusions. Dictated by: Dictated on workstation # [id number]
--- NOTE | 2018-11-11 08:05 | Progress Note ---
Subjective Date Seen by a Provider: Nov 11, 2018 Time Seen by a Provider: 08:00 Subjective/Events-last exam Intubated and sedated. Hgb stable. Hypotension requiring more Levophed. Receiving albumin. On Octreotide and Protonix. No family at bedside. Objective Exam Vital Signs Date Time Temp Pulse Resp B/P (MAP) Pulse Ox O2 Delivery O2 Flow Rate FiO2 11/11/18 07:07 85 16 96 35 11/11/18 07:00 83 19 80/40 (53) 97 Mechanical Ventilator 35.00 11/11/18 07:00 80 11/11/18 06:00 85 15 94/49 (64) 97 Mechanical Ventilator 35.00 11/11/18 05:00 80 15 92/47 (62) 97 Mechanical Ventilator 35.00 11/11/18 04:36 82 16 97 35 11/11/18 04:25 84 12 94 35 11/11/18 04:00 98.9 81 16 90/48 (62) 97 Mechanical Ventilator 35.00 11/11/18 04:00 97 Mechanical Ventilator 35 11/11/18 03:00 84 15 100/52 (68) 96 Mechanical Ventilator 25.00 11/11/18 02:15 82 16 107/52 (70) 96 Mechanical Ventilator 25.00 11/11/18 01:45 84 16 99/50 (66) 96 Mechanical Ventilator 25.00 11/11/18 01:00 84 15 99/53 (68) 96 Mechanical Ventilator 25.00 11/11/18 01:00 84 11/11/18 00:07 98 16 92 35 11/11/18 00:00 79 16 108/55 (72) 100 Mechanical Ventilator 25.00 11/11/18 00:00 99.1 11/11/18 00:00 93 Mechanical Ventilator 35 11/10/18 23:00 77 15 100/49 (66) 96 Mechanical Ventilator 25.00 11/10/18 22:00 105 13 100/47 (64) 94 Mechanical Ventilator 25.00 11/10/18 21:49 87 18 93 25 11/10/18 21:00 89 18 118/69 (85) 91 Mechanical Ventilator 25.00 11/10/18 20:00 96 Mechanical Ventilator 25 11/10/18 20:00 80 15 91/56 (68) 92 Mechanical Ventilator 25.00 11/10/18 20:00 98.7 4/25/19 19:19 77 16 92 25 11/10/18 19:00 77 11/10/18 19:00 77 16 91/51 (64) 93 Mechanical Ventilator 25.00 11/10/18 18:00 75 15 91/54 (66) 94 Mechanical Ventilator 25.00 11/10/18 17:00 76 16 92/49 (63) 95 Mechanical Ventilator 25.00 11/10/18 16:03 73 16 95 25 11/10/18 16:02 96.7 11/10/18 16:00 96 Mechanical Ventilator 25 11/10/18 16:00 73 15 91/45 (60) 95 Mechanical Ventilator 25.00 11/10/18 15:00 72 15 84/22 (42) 95 Mechanical Ventilator 25.00 11/10/18 14:42 71 16 95 25 11/10/18 14:00 68 16 88/63 (71) 99 Mechanical Ventilator 25.00 11/10/18 13:00 66 12 90/63 (72) 98 Mechanical Ventilator 25.00 11/10/18 12:46 65 11/10/18 12:00 63 16 97/70 (79) 98 Mechanical Ventilator 25.00 11/10/18 12:00 99 Mechanical Ventilator 25 11/10/18 11:49 95.7 11/10/18 11:00 65 16 97/63 (74) 98 Mechanical Ventilator 25.00 11/10/18 10:35 65 16 98 25 11/10/18 10:00 64 35 95/66 (76) 94 Mechanical Ventilator 25.00 11/10/18 09:00 96.3 11/10/18 09:00 67 16 104/80 (88) 98 Mechanical Ventilator 25.00 I & O 11/11/18 07:00 Intake Total 1258 ml Output Total 2160 ml Balance -902 ml Capillary Refill : Greater Than 3 SecondsLess Than 3 Seconds General Appearance: Chronically ill, Thin, Other (intubated and sedated) HEENT: Normal ENT Inspection Neck: Normal Inspection, Non Tender Respiratory: Lungs Clear Cardiovascular: Regular Rate, Rhythm Gastrointestinal: soft (drain serosanguineous incisions no signs of infection) Extremity: Normal Inspection, Pedal Edema Neurologic/Psychiatric: No Alert (intubated and sedated) Skin: Pallor Lymphatic: No Adenopathy Results Lab Laboratory Tests 11/10/18 08:23: Glucometer 125H 11/10/18 09:09: Prothrombin Time 17.1H, INR Comment 1.3, Activated Partial Thromboplast Time 43H 11/10/18 12:46: Glucometer 135H 11/10/18 15:35: Glucometer 132H 11/10/18 22:13: Glucometer 155H 11/11/18 03:15: White Blood Count 8.9, Red Blood Count 3.59L, Hemoglobin 10.8L, Hematocrit 32L, Mean Corpuscular Volume 89, Mean Corpuscular Hemoglobin 30, Mean Corpuscular Hemoglobin Concent 34, Red Cell Distribution Width 16.4H, Platelet Count 207, Mean Platelet Volume 10.2, Neutrophils (%) (Auto) 80H, Lymphocytes (%) (Auto) 9L , Monocytes (%) (Auto) 10, Eosinophils (%) (Auto) 1, Basophils (%) (Auto) 0, Neutrophils # (Auto) 7.1, Lymphocytes # (Auto) 0.8L, Monocytes # (Auto) 0.9, Eosinophils # (Auto) 0.1, Basophils # (Auto) 0.0, Neutrophils % (Manual) 83, Lymphocytes % (Manual) 2, Monocytes % (Manual) 9, Eosinophils % (Manual) 2, Atypical Lymphocytes 4, Sodium Level 142, Potassium Level 4.6, Chloride Level 108H, Carbon Dioxide Level 26, Anion Gap 8, Blood Urea Nitrogen 9, Creatinine 0.52L, Estimat Glomerular Filtration Rate > 60, BUN/Creatinine Ratio 17, Glucose Level 154H, Calcium Level 6.9L, Phosphorus Level 2.8, Magnesium Level 1.9, B-Type Natriuretic Peptide 91.5 11/11/18 04:20: Blood Gas Puncture Site RIGHT BRACHAIL, Blood Gas Patient Temperature 98.9, Arterial Blood pH 7.51H, Arterial Blood Partial Pressure CO2 35, Arterial Blood Partial Pressure O2 78L, Arterial Blood HCO3 28H, Arterial Blood Total CO2 28.8 , Arterial Blood Oxygen Saturation 96, Arterial Blood Base Excess 4.6H, Jackson Test POSITIVE, Blood Gas Ventilator Setting YES, Blood Gas Inspired Oxygen 30% FIO2 11/11/18 06:25: Sodium Level 141, Potassium Level 4.5, Chloride Level 106, Carbon Dioxide Level 25, Anion Gap 10, Blood Urea Nitrogen 10, Creatinine 0.53L, Estimat Glomerular Filtration Rate > 60, BUN/Creatinine Ratio 19, Glucose Level 161H, Calcium Level 6.8L, Corrected Calcium 8.9, Total Bilirubin 3.3H, Aspartate Amino Transf (AST/SGOT) 39H, Alanine Aminotransferase (ALT/SGPT) 17, Alkaline Phosphatase 96 , Ammonia 22, Total Protein 3.5L, Albumin 1.4L 11/11/18 07:52: Glucometer 162H Microbiology 11/02/18 MRSA Screen - Final, Complete MRSA not isolated Assessment/Plan Assessment/Plan Assessment/Plan hematemesis melena upper gi bleed pyloric ulcers severe anemia Status post exploratory laparotomy pyloromyotomy controlled gastroduodenal artery closure of perforated pyloric ulcer Patient transfused per massive transfusion protocol. hgb 10.8 She still intubated and sedated trying to wean. She is 3rd spacing and needs intravascular fluid getting Albumin. Nothing by mouth Griffith for accurate I's and O's Patient critical. Protonix/Octreotide drip. On Ancef and Flagyl since the bowels were opened and concern for contamination when opened bowel. Weaning Levophed as tolerates. Continue medical management. Clinical Quality Measures DVT/VTE Risk/Contraindication: Risk Factor Score Per Nursin RFS Level Per Nursing on Admit: 4+=Very High Contraindications-Pharm: Other *list below* Other: gi bleed ROBERT MARSH DO Nov 11, 2018 08:05
[2018-11-11] MEDS ORDERED: METHOTREXATE 2.5 MG TAB PO SCH (09:00)
--- NOTE | 2018-11-11 10:03 | Cardiology Progress Note ---
Cardiology SOAP Progress Note Subjective: Intubated/ventilated. Objective: I&O/Vital Signs 11/10/18 11/11/18 11/11/18 11/11/18 23:00 00:00 00:00 00:00 Temp 99.1 Pulse 77 79 Resp 15 16 B/P (MAP) 100/49 (66) 108/55 (72) Pulse Ox 96 93 100 O2 Delivery Mechanical Ventilator Mechanical Ventilator Mechanical Ventilator O2 Flow Rate 25.00 25.00 FiO2 35 11/11/18 11/11/18 11/11/18 11/11/18 00:07 01:00 01:00 01:45 Pulse 98 84 84 84 Resp 16 15 16 B/P (MAP) 99/53 (68) 99/50 (66) Pulse Ox 92 96 96 O2 Delivery Mechanical Ventilator Mechanical Ventilator O2 Flow Rate 25.00 25.00 FiO2 35 11/11/18 11/11/18 11/11/18 11/11/18 02:15 03:00 04:00 04:00 Temp 98.9 Pulse 82 84 81 Resp 16 15 16 B/P (MAP) 107/52 (70) 100/52 (68) 90/48 (62) Pulse Ox 96 96 97 97 O2 Delivery Mechanical Ventilator Mechanical Ventilator Mechanical Ventilator Mechanical Ventilator O2 Flow Rate 25.00 25.00 35.00 FiO2 35 11/11/18 11/11/18 11/11/18 11/11/18 04:25 04:36 05:00 06:00 Pulse 84 82 80 85 Resp 12 16 15 15 B/P (MAP) 92/47 (62) 94/49 (64) Pulse Ox 94 97 97 97 O2 Delivery Mechanical Ventilator Mechanical Ventilator O2 Flow Rate 35.00 35.00 FiO2 35 35 11/11/18 11/11/18 11/11/18 11/11/18 07:00 07:00 07:07 08:00 Pulse 80 83 85 Resp 19 16 B/P (MAP) 80/40 (53) Pulse Ox 97 96 93 O2 Delivery Mechanical Ventilator Mechanical Ventilator O2 Flow Rate 35.00 FiO2 35 35 11/11/18 11/11/18 08:00 09:00 Pulse 102 89 Resp 40 15 B/P (MAP) 107/70 (82) 102/50 (67) Pulse Ox 94 96 O2 Delivery Mechanical Ventilator Mechanical Ventilator O2 Flow Rate 35.00 35.00 11/11/18 00:00 Intake Total 820 ml Output Total 875 ml Balance -55 ml Weight (Pounds): 202 Weight (Ounces): 3.0 Weight (Calculated Kilograms): 91.959371 Constitutional: appears stated age, well-developed, well-nourished, other ( intubated/ventilated.) Respiratory: rhonchi, other (ventilated.) Cardiovascular: regular rate-rhythm; No irregularly irregular, No extra beats, No parasternal heave is noted, No JVD, No edema, No bradycardia, No tachycardia , No point of maximal impulse, No cardiac thrills are palpable; S1 and S2; No gallop/S3, No gallop/S4, No diastolic murmur, No systolic murmur, No friction rub, No click, No other Gastrointestional: No tender; soft; No round, No distended, No pulsatile mass, No organomegaly, No guarding, No rebound, No tenderness, No hernia, No mass, No audible bowel sounds, No abnormal bowel sounds, No abdominal bruits, No spleenomegaly, No other Extremities: No normal range of motion, No non-tender, No normal inspection, No pedal edema, No calf tenderness, No normal capillary refill, No pelvis stable , No calf tenderness, No inflammation, No pedal edema, No slow capillary refill , No swelling, No other, No abrasion, No clubbing, No cyanosis, No ecchymosis, No laceration, No no lower extremity edema bilateral, No significant edema, No tenderness, No wound Neurologic/Psychiatric: alert, oriented x 3, power is 5/5 both on sides Skin: pallor; No rash, No ulcerations Results/Procedures: Labs Laboratory Tests 11/10/18 12:46: Glucometer 135H 11/10/18 15:35: Glucometer 132H 11/10/18 22:13: Glucometer 155H 11/11/18 03:15: White Blood Count 8.9, Red Blood Count 3.59L, Hemoglobin 10.8L, Hematocrit 32L, Mean Corpuscular Volume 89, Mean Corpuscular Hemoglobin 30, Mean Corpuscular Hemoglobin Concent 34, Red Cell Distribution Width 16.4H, Platelet Count 207, Mean Platelet Volume 10.2, Neutrophils (%) (Auto) 80H, Lymphocytes (%) (Auto) 9L , Monocytes (%) (Auto) 10, Eosinophils (%) (Auto) 1, Basophils (%) (Auto) 0, Neutrophils # (Auto) 7.1, Lymphocytes # (Auto) 0.8L, Monocytes # (Auto) 0.9, Eosinophils # (Auto) 0.1, Basophils # (Auto) 0.0, Neutrophils % (Manual) 83, Lymphocytes % (Manual) 2, Monocytes % (Manual) 9, Eosinophils % (Manual) 2, Atypical Lymphocytes 4, Sodium Level 142, Potassium Level 4.6, Chloride Level 108H, Carbon Dioxide Level 26, Anion Gap 8, Blood Urea Nitrogen 9, Creatinine 0.52L, Estimat Glomerular Filtration Rate > 60, BUN/Creatinine Ratio 17, Glucose Level 154H, Calcium Level 6.9L, Phosphorus Level 2.8, Magnesium Level 1.9, B-Type Natriuretic Peptide 91.5 11/11/18 04:20: Blood Gas Puncture Site RIGHT BRACHAIL, Blood Gas Patient Temperature 98.9, Arterial Blood pH 7.51H, Arterial Blood Partial Pressure CO2 35, Arterial Blood Partial Pressure O2 78L, Arterial Blood HCO3 28H, Arterial Blood Total CO2 28.8 , Arterial Blood Oxygen Saturation 96, Arterial Blood Base Excess 4.6H, Jackson Test POSITIVE, Blood Gas Ventilator Setting YES, Blood Gas Inspired Oxygen 30% FIO2 11/11/18 06:25: Sodium Level 141, Potassium Level 4.5, Chloride Level 106, Carbon Dioxide Level 25, Anion Gap 10, Blood Urea Nitrogen 10, Creatinine 0.53L, Estimat Glomerular Filtration Rate > 60, BUN/Creatinine Ratio 19, Glucose Level 161H, Calcium Level 6.8L, Corrected Calcium 8.9, Total Bilirubin 3.3H, Aspartate Amino Transf (AST/SGOT) 39H, Alanine Aminotransferase (ALT/SGPT) 17, Alkaline Phosphatase 96 , Ammonia 22, Total Protein 3.5L, Albumin 1.4L 11/11/18 07:52: Glucometer 162H Microbiology 11/02/18 MRSA Screen - Final, Complete MRSA not isolated A/P: Assessment/Dx: Severe GI bleeding, anemia, Severe respiratory failure Plan: Severe GI bleeding, transfusion with PRBCs, status post upper and lower GI endoscopy. Severe respiratory failure -intubated/ventilated. Likely extubation soon. Echocardiogram done 11/04/2018 shows normal LV function with mild to moderate LVH , moderate to severe pulmonary hypertension. Collapsed IVC suggesting significant volume depletion. Sinus tachycardia, resolved. Stable cardiac-valenzuela. Dr. Mcfadden covering cardiology services over the weekend. Thank you for your consultation. Please call me if you have any questions. Belinda Harley MD, FACP, FACC, FSCAI, FHRS, CCDS Interventional Cardiology Cardiac Electrophysiology Vascular Medicine and Endovascular Interventions Yan HARLEY MD Nov 11, 2018 10:03 am
--- NOTE | 2018-11-11 10:05 | Progress Note-Hospitalist ---
Subjective HPI/CC On Admission Date Seen by Provider: Nov 11, 2018 Time Seen by Provider: 09:45 CC: GI Bleed HPI: This is a 78-year-old white female who sees Dr. Ruggiero who presented to the [place] ER with hematemesis and melena and hematochezia. She was not maintained on any blood thinners anticoagulation studies were normal and had never had a GI bleed before. Repeat hemoglobin was 5.8 patient was given 2 units of packed red blood cells and Dr. Bautista was consulted. Patient had no significant decompensation during the hospital stay in the ICU or she was admitted to due to severe GI bleed. Dr. Lozada was consulted. She will have EGD and colonoscopy tomorrow by Dr. Bautista. [place] with her [place] but now I hear she's from [facility] in [place] where she was on skilled care so unsure if she is confused or just a temporary stay at [facility] but I would assume she would've told me she was from a custodial where she lives currently. Subjective/Events-last exam Pt still intubated but pt will receive Albumin IV in order to facilitate excess fluid in Anasarca Pt still sedated Will set weaning parameters per Dr. Lozada Objective Exam Vital Signs Vital Signs Date Time Temp Pulse Resp B/P (MAP) Pulse Ox O2 Delivery O2 Flow Rate FiO2 11/11/18 18:00 101 18 125/66 (85) 97 Mechanical Ventilator 35.00 11/11/18 16:00 35 11/11/18 04:00 98.9 Capillary Refill : Greater Than 3 SecondsLess Than 3 Seconds General Appearance: Chronically ill, Thin, Other (intubated and sedated) HEENT: Normal ENT Inspection Neck: Normal Inspection, Non Tender Respiratory: Lungs Clear Cardiovascular: Regular Rate, Rhythm Gastrointestinal: Normal Bowel Sounds, No Organomegaly, No Pulsatile Mass, Non Tender, Soft Back: Normal Inspection, No CVA Tenderness, No Vertebral Tenderness Extremity: Normal Inspection, Pedal Edema Neurologic/Psychiatric: No Alert (intubated and sedated) Skin: Pallor Lymphatic: No Adenopathy Results/Procedures Lab Laboratory Tests 11/11/18 03:15 11/11/18 06:25 Patient resulted labs reviewed. Imaging: Reviewed Imaging Report Assessment/Plan Assessment and Plan Assess & Plan/Chief Complaint Assessment: Acute respiratory failure needing ICU transfer and intubation GI Bleed EGD x 4 total then s/p surgical repair Pyloric ulcer actively bleeding Dementia Debility Anasarca Plan: ICU Intubation EGD Prognosis guarded Albumin Critical Care Critically Ill Patient Diagnosis/Problems Diagnosis/Problems (1) Ventilator dependence Status: Acute (2) Respiratory failure Status: Acute Qualifiers: Chronicity: acute Respiratory failure complication: hypoxia Qualified Codes: J96.01 - Acute respiratory failure with hypoxia (3) Anemia due to acute blood loss Status: Acute (4) GERD (gastroesophageal reflux disease) Status: Chronic Qualifiers: Esophagitis presence: without esophagitis Qualified Codes: K21.9 - Gastro- esophageal reflux disease without esophagitis (5) Dementia Status: Chronic Qualifiers: Dementia type: Alzheimer's disease Alzheimer's disease onset: unspecified onset Dementia behavioral disturbance: without behavioral disturbance Qualified Codes: G30.9 - Alzheimer's disease, unspecified; F02.80 - Dementia in other diseases classified elsewhere without behavioral disturbance (6) Acute GI bleeding Status: Acute (7) Weakness Status: Acute (8) Transfusion of blood during current hospitalization Status: Acute (9) Pyloric ulcer Status: Acute Qualifiers: Gastric ulcer chronicity: acute Qualified Codes: K25.3 - Acute gastric ulcer without hemorrhage or perforation Clinical Quality Measures DVT/VTE Risk/Contraindication: Risk Factor Score Per Nursin RFS Level Per Nursing on Admit: 4+=Very High Contraindications-Pharm: Other *list below* Other: gi bleed BO SUÁREZ DO Nov 11, 2018 10:05
--- NOTE | 2018-11-11 15:15 | NUR ---
notified dr fitzgerald of urine output around 28ml/hr. orders to continue to monitor and notify if bp or hr change.
[2018-11-11 19:22] LABS: HEMOGLOBIN 8.6 G/DL (11.5-16.0)
[2018-11-11] MEDS: ATENOLOL 25 MG (TENORMIN) TAB PO SCH (20:17)
[2018-11-12] VITALS (36 sets, daily range): BP systolic 82–124; BP diastolic 46–69
[2018-11-12] MEDS: fentaNYL 1,250 MCG/NS 250 ML DRIP IV SCH ×4 (00:44→23:45)
[2018-11-12] MEDS: PANTOPRAZOLE INJECTION 200 MG in NS (IVPB) 100 ML IV SCH ×2 (00:44→23:45)
[2018-11-12] MEDS: inSUlin ASPART (NovoLOG) 1 UNIT/0.01 ML (CHARGE PER UNIT) SC SCH ×6 (00:44→20:17)
--- NOTE | 2018-11-12 01:12 | NUR ---
50 ML OF FENTANYL WASTED BY THIS RN, WITNESSED BY PRISCILLA KWAN
[2018-11-12 03:13] LABS: BASOPHILS % (AUTO) 0 % (0-10); EOSINOPHILS # (AUTO) 0.1 10^3/uL (0.0-0.3); EOSINOPHILS % (AUTO) 1 % (0-10); HEMATOCRIT 27 % (35-52); HEMOGLOBIN 8.6 G/DL (11.5-16.0); LYMPHOCYTES # (AUTO) 0.5 X 10^3 (1.0-4.0); LYMPHOCYTES % (AUTO) 6 % (12-44); MEAN CORPUSCULAR HEMOGLOBIN 30 PG (25-34); MEAN CORPUSCULAR HGB CONC 32 G/DL (32-36); MEAN CORPUSCULAR VOLUME 93 FL (80-99); MEAN PLATELET VOLUME 9.6 FL (7.4-10.4); MONOCYTES # (AUTO) 0.8 X 10^3 (0.0-1.0); MONOCYTES % (AUTO) 8 % (0-12); NEUTROPHILS # (AUTO) 7.7 X 10^3 (1.8-7.8); NEUTROPHILS % (AUTO) 85 % (42-75); PLATELET COUNT 191 10^3/uL (130-400); RED CELL DISTRIBUTION WIDTH 16.7 % (10.0-14.5)
[2018-11-12 03:30] LABS: BUN/CREATININE RATIO 17; CALCIUM 7.7 MG/DL (8.5-10.1); CARBON DIOXIDE 20 MMOL/L (21-32); CHLORIDE 107 MMOL/L (98-107); GFR ESTIMATED > 60; GLUCOSE 155 MG/DL (70-105); MAGNESIUM 1.9 MG/DL (1.8-2.4); PHOSPHORUS 2.4 MG/DL (2.3-4.7); POTASSIUM 4.1 MMOL/L (3.6-5.0); SODIUM 142 MMOL/L (135-145)
[2018-11-12 04:40] LABS: ABG BASE EXCESS 0.5 MMOL/L (-2.5-2.5); ABG OXYGEN SATURATION 82 % (94-100); ABG PCO2 40 MMHG (35-45); ABG PO2 48 MMHG (79-93)
[2018-11-12 04:41] LABS: ALLENS TEST YES-POS; INSPIRED O2 35%; PATIENT TEMP 98.3; VENTILATOR YES
[2018-11-12] MEDS: OCTREOTIDE INJECTION 500 MCG in NS (IVPB) 99 ML IV SCH ×3 (04:45→23:45)
[2018-11-12] MEDS: MAGNESIUM 1 GM/100 ML IVPB 100 ML IV SCH (05:20)
[2018-11-12] MEDS: POTASSIUM CL 10MEQ/50ML IVPB 50 ML IV SCH (05:20)
[2018-11-12] MEDS: LACTATED RINGERS IV SCH ×6 (05:20→22:08)
[2018-11-12] MEDS: POTASSIUM CHLORIDE IV SCH ×6 (05:20→22:08)
[2018-11-12] MEDS: MULTIVIT W/MINERALS TAB (THERAGRAN M) PO SCH (05:21)
[2018-11-12] MEDS: KCL 20 MEQ TAB (K-DUR) PO SCH (05:21)
[2018-11-12] MEDS: ceFAZolin INJECTION 1,000 MG in WATER (STERILE) FOR INJECTION 10 ML IV SCH (05:45)
[2018-11-12] MEDS: SUCRALFATE 1 GM (CARAFATE) TAB PO SCH ×4 (05:45→20:40)
[2018-11-12] MEDS: metroNIDAZOLE 500MG/100ML IVPB 100 ML IV SCH ×3 (05:45→20:41)
[2018-11-12] MEDS ORDERED: PHARMACY TO DOSE IV SCH (06:00)
--- NOTE | 2018-11-12 06:01 | Pulmonary Progress Note ---
Subjective Time Seen by a Provider: 06:09 Subjective/Events-last exam Pt appears comfortable on vent. NO sedation is going. Sepsis Event Evaluation Height, Weight, BMI Height: 5'2.00" Weight: 189lbs. 3.0oz. 85.558199sc; 22.3 BMI Method:Actual Exam Exam Vital Signs Date Time Temp Pulse Resp B/P (MAP) Pulse Ox O2 Delivery O2 Flow Rate FiO2 11/12/18 05:00 122 21 124/64 (84) 96 Mechanical Ventilator 35.00 11/12/18 04:00 94 Mechanical Ventilator 35 11/12/18 04:00 112 24 115/58 (77) 95 Mechanical Ventilator 35.00 11/12/18 03:00 107 18 105/58 (74) 94 Mechanical Ventilator 35.00 11/12/18 02:10 106 20 98 30 11/12/18 02:00 108 19 113/62 (79) 96 Mechanical Ventilator 35.00 11/12/18 02:00 103 24 113/62 (79) 97 Mechanical Ventilator 35.00 11/12/18 01:00 103 11/12/18 01:00 103 19 111/57 (75) 97 Mechanical Ventilator 35.00 11/12/18 00:35 101 18 97 35 11/12/18 00:00 94 Mechanical Ventilator 35 11/12/18 00:00 107 23 117/64 (81) 94 Mechanical Ventilator 35.00 11/11/18 23:59 98.4 11/11/18 23:00 107 19 106/59 (75) 96 Mechanical Ventilator 35.00 11/11/18 22:15 105 19 96 35 11/11/18 22:00 105 26 113/63 (80) 96 Mechanical Ventilator 35.00 11/11/18 21:00 110 28 114/63 (80) 96 Mechanical Ventilator 35.00 11/11/18 20:30 111 21 100 35 11/11/18 20:19 98.0 11/11/18 20:00 111 23 100/63 (75) 95 Mechanical Ventilator 35.00 11/11/18 20:00 94 Mechanical Ventilator 35 11/11/18 19:15 130/71 (90) 11/11/18 19:00 151 11/11/18 19:00 151 27 93 Mechanical Ventilator 35.00 11/11/18 18:45 112 20 95 35 11/11/18 18:00 101 18 125/66 (85) 97 Mechanical Ventilator 35.00 11/11/18 17:00 99 17 116/68 (84) 96 Mechanical Ventilator 35.00 11/11/18 16:00 94 Mechanical Ventilator 35 11/11/18 16:00 98.6 11/11/18 16:00 109 21 112/65 (81) 94 Mechanical Ventilator 35.00 11/11/18 15:00 110 18 95/55 (68) 95 Mechanical Ventilator 35.00 11/11/18 14:35 123 17 93 35 11/11/18 14:00 98 21 108/51 (70) 94 Mechanical Ventilator 35.00 11/11/18 13:00 100 11/11/18 13:00 100 40 111/54 (73) 95 Mechanical Ventilator 35.00 11/11/18 12:00 118 26 104/89 (94) 94 Mechanical Ventilator 35.00 11/11/18 12:00 94 Mechanical Ventilator 35 11/11/18 12:00 97.8 11/11/18 11:28 92 14 97 35 11/11/18 11:00 96 14 103/58 (73) 96 Mechanical Ventilator 35.00 11/11/18 10:00 93 21 114/51 (72) 96 Mechanical Ventilator 35.00 11/11/18 09:00 89 15 102/50 (67) 96 Mechanical Ventilator 35.00 11/11/18 08:00 102 40 107/70 (82) 94 Mechanical Ventilator 35.00 11/11/18 08:00 93 Mechanical Ventilator 35 11/11/18 07:07 85 16 96 35 11/11/18 07:00 83 19 80/40 (53) 97 Mechanical Ventilator 35.00 11/11/18 07:00 98.9 11/11/18 07:00 80 11/11/18 06:00 85 15 94/49 (64) 97 Mechanical Ventilator 35.00 I & O 11/12/18 07:00 Intake Total 520 ml Output Total 1260 ml Balance -740 ml Height & Weight Height: 5'2.00" Weight: 189lbs. 3.0oz. 85.023740yx; 22.3 BMI Method:Actual General Appearance: Chronically ill, Thin, Other (intubated and sedated) HEENT: Normal ENT Inspection Neck: Normal Inspection, Non Tender Respiratory: Lungs Clear Cardiovascular: Regular Rate, Rhythm Capillary Refill: Less Than 3 Seconds Gastrointestinal: soft (drain serosanguineous incisions no signs of infection) Extremity: Normal Inspection, Pedal Edema Neurologic/Psychiatric: No Alert (intubated and sedated) Skin: Pallor Lymphatic: No Adenopathy Results Lab Laboratory Tests 11/11/18 03:15 11/11/18 06:25 11/11/18 18:40 11/12/18 03:05 Assessment/Plan Assessment/Plan Acute respiratory failure -Continue ventilator care -Change to SIMV/PS and repeat ABG in 1hr. -ABG this AM is a mixed venous gas. - TF -Labs and CXR reviewed -D/C Propofol, Fentanyl gtt, Precedex and await pt to wake up. Bilateral pulmonary infiltrates Acute severe GIB - with PUD - s/p ex lap with ligation off gastroduodenal artery and repair of pyloric perforation. - total of 16units of PRBC, 6units of FFP, and 2 units of Platelets this admission -S/p EGD x 3 -Surgery following -Protonix gtt, Octreotide -H&H Q6 Atelectasis -Monitor Anasarca - multifactorial -Will give albumin Q8 x 3 Protein dilan malnutrition -check albumin and prealbumin Tachycardia -Monitor Anemia -Monitor Metabolic lactic acidosis- resolved - change Bicarb gtt to LR -Monitor Hypokalemia, hypomag, hypophos -replace Hypernatremia -monitor -improving Hypotension -Pt is still on levophed-- wean -Monitor Left sided rib fractures s/p fall 2 mo ago -IS -Fall risk Pulmonary infiltrate -Monitor for now Small left pleural effusion -Monitor ARJUN MEADE DO Nov 12, 2018 06:00
[2018-11-12] MEDS ORDERED: NS (IVPB) 100 ML ONE (06:26)
[2018-11-12] MEDS ORDERED: PIPERACILLIN/TAZO 4.5 GM VIAL (ZOSYN) IV ONE (06:26)
[2018-11-12] MEDS: PIPERACILLIN/TAZOBACTAM (BULK) 4.5 GM in NS (IVPB) 100 ML IV SCH ×3 (06:35→20:41)
--- NOTE | 2018-11-12 07:15 | NUR ---
CR 0.6; CR CL ~46; WT 85 KG; VANCO 1750 MG IV BOLUS, THEN 1500 MG Q24H; TROUGH AFTER 2ND DOSE
[2018-11-12] MEDS ORDERED: VANCOMYCIN 1,750 MG/NS 500 ML IVPB IV NR ×2 (07:30)
[2018-11-12 08:18] LABS: ABG OXYGEN SATURATION 97 % (94-100); ABG PCO2 31 MMHG (35-45); ABG PH 7.45 (7.37-7.43); ABG PO2 73 MMHG (79-93); ABG TCO2 22.5 MMOL/L (21.0-31.0)
[2018-11-12 08:21] LABS: ALLENS TEST YES-POS
[2018-11-12 08:22] LABS: INSPIRED O2 35%; PATIENT TEMP 97.5; VENTILATOR YES
--- NOTE | 2018-11-12 08:33 | Diagnostic Imaging Report ---
Indication: Dyspnea, acute GI bleed. Comparison: 11/11/2018. Discussion: Single portable upright view of the chest was obtained. Endotracheal tube and enteric tube are stable. Left-sided central venous catheter stable. Small bilateral pleural effusions are stable. Alveolar infiltrates are significantly increased from the prior exam, likely worsening edema or pneumonia. Impression: 1. Worsening diffuse alveolar infiltrates. 2. Bilateral pleural effusions are stable. Dictated by: Dictated on workstation # [id number]
--- NOTE | 2018-11-12 08:36 | Progress Note-Hospitalist ---
Subjective HPI/CC On Admission Date Seen by Provider: Nov 12, 2018 Time Seen by Provider: 08:10 CC: GI Bleed HPI: This is a 78-year-old white female who sees Dr. Ruggiero who presented to the [place] ER with hematemesis and melena and hematochezia. She was not maintained on any blood thinners anticoagulation studies were normal and had never had a GI bleed before. Repeat hemoglobin was 5.8 patient was given 2 units of packed red blood cells and Dr. Bautista was consulted. Patient had no significant decompensation during the hospital stay in the ICU or she was admitted to due to severe GI bleed. Dr. Lozada was consulted. She will have EGD and colonoscopy tomorrow by Dr. Bautista. She [place] she [place] a farm with her [place] but now I hear she's from [facility] in [place] where she was on skilled care so unsure if she is confused or just a temporary stay at [facility] but I would assume she would've told me she was from a alf where she lives currently. Subjective/Events-last exam Anasarca improved Hemoglobin stable Set at SIMV intending to extubate in the next day or 2 Suctioning a lot Patient very critically ill Unsure the recoverability due to advanced age at 78 years old Objective Exam Vital Signs Vital Signs Date Time Temp Pulse Resp B/P (MAP) Pulse Ox O2 Delivery O2 Flow Rate FiO2 11/12/18 16:31 107 27 108/55 (72) 95 Mechanical Ventilator 35.00 11/12/18 15:40 99.0 11/12/18 14:19 35 Capillary Refill : Greater Than 3 SecondsLess Than 3 Seconds General Appearance: Chronically ill, Thin, Other (intubated and sedated) HEENT: Normal ENT Inspection Neck: Normal Inspection, Non Tender Respiratory: Lungs Clear Cardiovascular: Regular Rate, Rhythm Gastrointestinal: Normal Bowel Sounds, No Organomegaly, No Pulsatile Mass, Non Tender, Soft Back: Normal Inspection, No CVA Tenderness, No Vertebral Tenderness Extremity: Normal Inspection, Pedal Edema Neurologic/Psychiatric: No Alert (intubated and sedated) Skin: Pallor Lymphatic: No Adenopathy Results/Procedures Lab Laboratory Tests 11/11/18 18:40 11/12/18 03:05 11/12/18 16:47 Patient resulted labs reviewed. Imaging: Reviewed Imaging Report Assessment/Plan Assessment and Plan Assess & Plan/Chief Complaint Assessment: Acute respiratory failure needing ICU transfer and intubation GI Bleed EGD x 4 total then s/p surgical repair Pyloric ulcer actively bleeding Dementia Debility Anasarca Plan: ICU Intubation EGD Prognosis guarded Albumin Critical Care Critically Ill Patient Diagnosis/Problems Diagnosis/Problems (1) Ventilator dependence Status: Acute (2) Respiratory failure Status: Acute Qualifiers: Chronicity: acute Respiratory failure complication: hypoxia Qualified Codes: J96.01 - Acute respiratory failure with hypoxia (3) Anemia due to acute blood loss Status: Acute (4) GERD (gastroesophageal reflux disease) Status: Chronic Qualifiers: Esophagitis presence: without esophagitis Qualified Codes: K21.9 - Gastro- esophageal reflux disease without esophagitis (5) Dementia Status: Chronic Qualifiers: Dementia type: Alzheimer's disease Alzheimer's disease onset: unspecified onset Dementia behavioral disturbance: without behavioral disturbance Qualified Codes: G30.9 - Alzheimer's disease, unspecified; F02.80 - Dementia in other diseases classified elsewhere without behavioral disturbance (6) Acute GI bleeding Status: Acute (7) Weakness Status: Acute (8) Transfusion of blood during current hospitalization Status: Acute (9) Pyloric ulcer Status: Acute Qualifiers: Gastric ulcer chronicity: acute Qualified Codes: K25.3 - Acute gastric ulcer without hemorrhage or perforation Clinical Quality Measures DVT/VTE Risk/Contraindication: Risk Factor Score Per Nursin RFS Level Per Nursing on Admit: 4+=Very High Contraindications-Pharm: Other *list below* Other: gi bleed BO SUÁREZ DO Nov 12, 2018 08:36
--- NOTE | 2018-11-12 09:07 | NUR ---
ABG RESULTS SENT TO DR MEADE AT 1079
--- NOTE | 2018-11-12 11:51 | Progress Note (SOAP) ---
Subjective Date Seen by a Provider: Nov 12, 2018 Time Seen by a Provider: 11:00 Subjective/Events-last exam on vent and sedated. on SIMV today and responsive to voice. BP stable and not on any pressors, slight decrease in hb however likely dilutional Objective Exam Vital Signs Date Time Temp Pulse Resp B/P (MAP) Pulse Ox O2 Delivery O2 Flow Rate FiO2 11/12/18 10:47 113 29 98 35 11/12/18 09:00 126 36 88/48 (61) 92 Mechanical Ventilator 35.00 11/12/18 08:00 Mechanical Ventilator 35 11/12/18 08:00 115 34 97 35 11/12/18 08:00 121 35 99/52 (68) 97 Mechanical Ventilator 35.00 11/12/18 07:00 118 34 100/51 (67) 98 Mechanical Ventilator 35.00 11/12/18 07:00 99 11/12/18 06:23 117 36 97 35 11/12/18 06:17 116 30 98 35 11/12/18 06:00 111 24 104/56 (72) 98 Mechanical Ventilator 35.00 11/12/18 05:00 122 21 124/64 (84) 96 Mechanical Ventilator 35.00 11/12/18 04:00 94 Mechanical Ventilator 35 11/12/18 04:00 112 24 115/58 (77) 95 Mechanical Ventilator 35.00 11/12/18 03:00 107 18 105/58 (74) 94 Mechanical Ventilator 35.00 11/12/18 02:10 106 20 98 30 11/12/18 02:00 108 19 113/62 (79) 96 Mechanical Ventilator 35.00 11/12/18 02:00 103 24 113/62 (79) 97 Mechanical Ventilator 35.00 11/12/18 01:00 103 11/12/18 01:00 103 19 111/57 (75) 97 Mechanical Ventilator 35.00 11/12/18 00:35 101 18 97 35 11/12/18 00:00 94 Mechanical Ventilator 35 11/12/18 00:00 107 23 117/64 (81) 94 Mechanical Ventilator 35.00 11/11/18 23:59 98.4 11/11/18 23:00 107 19 106/59 (75) 96 Mechanical Ventilator 35.00 11/11/18 22:15 105 19 96 35 11/11/18 22:00 105 26 113/63 (80) 96 Mechanical Ventilator 35.00 11/11/18 21:00 110 28 114/63 (80) 96 Mechanical Ventilator 35.00 11/11/18 20:30 111 21 100 35 11/11/18 20:19 98.0 11/11/18 20:00 111 23 100/63 (75) 95 Mechanical Ventilator 35.00 11/11/18 20:00 94 Mechanical Ventilator 35 11/11/18 19:15 130/71 (90) 11/11/18 19:00 151 11/11/18 19:00 151 27 93 Mechanical Ventilator 35.00 11/11/18 18:45 112 20 95 35 11/11/18 18:00 101 18 125/66 (85) 97 Mechanical Ventilator 35.00 11/11/18 17:00 99 17 116/68 (84) 96 Mechanical Ventilator 35.00 11/11/18 16:00 94 Mechanical Ventilator 35 11/11/18 16:00 98.6 11/11/18 16:00 109 21 112/65 (81) 94 Mechanical Ventilator 35.00 11/11/18 15:00 110 18 95/55 (68) 95 Mechanical Ventilator 35.00 11/11/18 14:35 123 17 93 35 11/11/18 14:00 98 21 108/51 (70) 94 Mechanical Ventilator 35.00 11/11/18 13:00 100 11/11/18 13:00 100 40 111/54 (73) 95 Mechanical Ventilator 35.00 11/11/18 12:00 118 26 104/89 (94) 94 Mechanical Ventilator 35.00 11/11/18 12:00 94 Mechanical Ventilator 35 11/11/18 12:00 97.8 I & O 11/12/18 07:00 Intake Total 520 ml Output Total 1260 ml Balance -740 ml Capillary Refill : Greater Than 3 SecondsLess Than 3 Seconds General Appearance: No Apparent Distress HEENT: PERRL/EOMI Neck: Full Range of Motion Respiratory: Chest Non Tender, Normal Breath Sounds Cardiovascular: Regular Rate, Rhythm Gastrointestinal: soft, other (incision clean/dry) Extremity: Normal Capillary Refill Neurologic/Psychiatric: Alert Skin: Normal Color Lymphatic: No Adenopathy Results Lab Laboratory Tests 11/11/18 13:06: Glucometer 198H 11/11/18 15:47: Glucometer 147H 11/11/18 18:40: Hemoglobin 8.6#L, Hematocrit 27L 11/11/18 20:23: Glucometer 161H 11/12/18 03:05: White Blood Count 9.0, Red Blood Count 2.87L, Hemoglobin 8.6L, Hematocrit 27L, Mean Corpuscular Volume 93, Mean Corpuscular Hemoglobin 30, Mean Corpuscular Hemoglobin Concent 32, Red Cell Distribution Width 16.7H, Platelet Count 191, Mean Platelet Volume 9.6, Neutrophils (%) (Auto) 85H, Lymphocytes (%) (Auto) 6L , Monocytes (%) (Auto) 8, Eosinophils (%) (Auto) 1, Basophils (%) (Auto) 0, Neutrophils # (Auto) 7.7, Lymphocytes # (Auto) 0.5L, Monocytes # (Auto) 0.8, Eosinophils # (Auto) 0.1, Basophils # (Auto) 0.0, Sodium Level 142, Potassium Level 4.1, Chloride Level 107, Carbon Dioxide Level 20L, Anion Gap 15H, Blood Urea Nitrogen 10, Creatinine 0.60, Estimat Glomerular Filtration Rate > 60, BUN/ Creatinine Ratio 17, Glucose Level 155H, Calcium Level 7.7L, Phosphorus Level 2.4, Magnesium Level 1.9 11/12/18 04:29: Blood Gas Puncture Site R BRACH, Blood Gas Patient Temperature 98.3, Arterial Blood pH 7.40, Arterial Blood Partial Pressure CO2 40, Arterial Blood Partial Pressure O2 48L, Arterial Blood HCO3 25, Arterial Blood Total CO2 26.0, Arterial Blood Oxygen Saturation 82L, Arterial Blood Base Excess 0.5, Jackson Test YES-POS, Blood Gas Ventilator Setting YES, Blood Gas Inspired Oxygen 35% 11/12/18 08:10: Blood Gas Puncture Site RT BRACHIAL, Blood Gas Patient Temperature 97.5, Arterial Blood pH 7.45H, Arterial Blood Partial Pressure CO2 31L, Arterial Blood Partial Pressure O2 73L, Arterial Blood HCO3 22L, Arterial Blood Total CO2 22.5, Arterial Blood Oxygen Saturation 97, Arterial Blood Base Excess -2.0, Jackson Test YES-POS, Blood Gas Ventilator Setting YES, Blood Gas Inspired Oxygen 35% 11/12/18 08:28: Glucometer 163H Microbiology 11/02/18 MRSA Screen - Final, Complete MRSA not isolated Assessment/Plan Assessment/Plan Assess & Plan/Chief Complaint bleeding pyloric ulcer s/p oversew and pyloroplasty. continue vent ween per pulm. cont PPI and sandostatin gtt. tolerating trickle tube feeds for now. Clinical Quality Measures DVT/VTE Risk/Contraindication: Risk Factor Score Per Nursin RFS Level Per Nursing on Admit: 4+=Very High Contraindications-Pharm: Other *list below* Other: gi bleed PJ BHATT MD Nov 12, 2018 11:51
--- NOTE | 2018-11-12 15:12 | Progress Note-Cardiology ---
Cardiology SOAP Progress Note [facility] Not able to provide any history Objective: I&O/Vital Signs 11/12/18 11/12/18 11/12/18 11/12/18 04:00 04:00 05:00 06:00 Pulse 112 122 111 Resp 24 21 24 B/P (MAP) 115/58 (77) 124/64 (84) 104/56 (72) Pulse Ox 95 94 96 98 O2 Delivery Mechanical Ventilator Mechanical Ventilator Mechanical Ventilator Mechanical Ventilator O2 Flow Rate 35.00 35.00 35.00 FiO2 35 11/12/18 11/12/18 11/12/18 11/12/18 06:17 06:23 07:00 07:00 Pulse 116 117 99 118 Resp 30 36 34 B/P (MAP) 100/51 (67) Pulse Ox 98 97 98 O2 Delivery Mechanical Ventilator O2 Flow Rate 35.00 FiO2 35 35 11/12/18 11/12/18 11/12/18 11/12/18 08:00 08:00 08:00 09:00 Pulse 121 115 126 Resp 35 34 36 B/P (MAP) 99/52 (68) 88/48 (61) Pulse Ox 97 97 92 O2 Delivery Mechanical Ventilator Mechanical Ventilator Mechanical Ventilator O2 Flow Rate 35.00 35.00 FiO2 35 35 11/12/18 11/12/18 11/12/18 11/12/18 10:00 10:47 11:00 11:30 Temp 98.2 Pulse 121 113 115 Resp 31 29 32 B/P (MAP) 89/55 (66) 97/55 (69) Pulse Ox 95 98 94 O2 Delivery Mechanical Ventilator Mechanical Ventilator O2 Flow Rate 35.00 35.00 FiO2 35 11/12/18 11/12/18 11/12/18 11/12/18 12:00 12:00 13:00 13:00 Pulse 121 110 109 Resp 36 28 B/P (MAP) 97/51 (66) 92/47 (62) Pulse Ox 95 98 O2 Delivery Mechanical Ventilator Mechanical Ventilator Mechanical Ventilator O2 Flow Rate 35.00 35.00 FiO2 35 11/12/18 14:19 Pulse 110 Resp 30 Pulse Ox 95 FiO2 35 11/12/18 00:00 Intake Total 70 ml Output Total 505 ml Balance -435 ml Weight (Pounds): 189 Weight (Ounces): 3.0 Weight (Calculated Kilograms): 85.614762 Constitutional: appears stated age, well-developed, well-nourished, other ( intubated/ventilated.) Respiratory: other (intubated and on mec vent; good bilat air entry) Cardiovascular: regular rate-rhythm, S1 and S2 Gastrointestional: soft; No guarding, No rebound; audible bowel sounds Extremities: No clubbing, No cyanosis, No significant edema Neurologic/Psychiatric: other (On mech vent; unable to cooperate with any neuro exam) Skin: No diaphoresis; pallor; No rash on exposed areas, No ulcerations on exposed areas Results/Procedures: Labs Laboratory Tests 11/11/18 15:47: Glucometer 147H 11/11/18 18:40: Hemoglobin 8.6#L, Hematocrit 27L 11/11/18 20:23: Glucometer 161H 11/12/18 03:05: Hemoglobin 8.6L, Hematocrit 27L, White Blood Count 9.0, Red Blood Count 2.87L, Mean Corpuscular Volume 93, Mean Corpuscular Hemoglobin 30, Mean Corpuscular Hemoglobin Concent 32, Red Cell Distribution Width 16.7H, Platelet Count 191, Mean Platelet Volume 9.6, Neutrophils (%) (Auto) 85H, Lymphocytes (%) (Auto) 6L , Monocytes (%) (Auto) 8, Eosinophils (%) (Auto) 1, Basophils (%) (Auto) 0, Neutrophils # (Auto) 7.7, Lymphocytes # (Auto) 0.5L, Monocytes # (Auto) 0.8, Eosinophils # (Auto) 0.1, Basophils # (Auto) 0.0, Sodium Level 142, Potassium Level 4.1, Chloride Level 107, Carbon Dioxide Level 20L, Anion Gap 15H, Blood Urea Nitrogen 10, Creatinine 0.60, Estimat Glomerular Filtration Rate > 60, BUN/ Creatinine Ratio 17, Glucose Level 155H, Calcium Level 7.7L, Phosphorus Level 2.4, Magnesium Level 1.9 11/12/18 04:29: Blood Gas Puncture Site R BRACH, Blood Gas Patient Temperature 98.3, Arterial Blood pH 7.40, Arterial Blood Partial Pressure CO2 40, Arterial Blood Partial Pressure O2 48L, Arterial Blood HCO3 25, Arterial Blood Total CO2 26.0, Arterial Blood Oxygen Saturation 82L, Arterial Blood Base Excess 0.5, Jackson Test YES-POS, Blood Gas Ventilator Setting YES, Blood Gas Inspired Oxygen 35% 11/12/18 08:10: Blood Gas Puncture Site RT BRACHIAL, Blood Gas Patient Temperature 97.5, Arterial Blood pH 7.45H, Arterial Blood Partial Pressure CO2 31L, Arterial Blood Partial Pressure O2 73L, Arterial Blood HCO3 22L, Arterial Blood Total CO2 22.5, Arterial Blood Oxygen Saturation 97, Arterial Blood Base Excess -2.0, Jackson Test YES-POS, Blood Gas Ventilator Setting YES, Blood Gas Inspired Oxygen 35% 11/12/18 08:28: Glucometer 163H 11/12/18 12:17: Glucometer 189H Microbiology 11/02/18 MRSA Screen - Final, Complete MRSA not isolated Laboratory Tests 11/11/18 03:15 11/11/18 06:25 11/11/18 18:40 11/12/18 03:05 A/P: Assessment: Large GI bleed; s/p exploratory laparotomy, pyloromyotomy, ligation gastroduodenal artery, repair of perforated pyloric ulcer Transient shock due to blood loss Acute resp failure. Currently with pulmonary infiltrates: ARDS vs pneumonia vs atelectasis Echocardiogram done 11/04/2018 shows normal LV function with mild to moderate LVH , moderate to severe pulmonary hypertension. Collapsed IVC suggesting significant volume depletion. Sinus tachycardia, likely due systemic illness Plan: * I reviewed her records and examined her * She remains very ill and still on mech vent * No further cardiac recs at this time * Monitor labs MARGARITA CHAMBERLAIN MD FACP FAC CCDS Nov 12, 2018 15:12
[2018-11-12] MEDS: ATENOLOL 25 MG (TENORMIN) TAB PO SCH (19:25)
[2018-11-13] VITALS (32 sets, daily range): BP systolic 75–134; BP diastolic 51–98
[2018-11-13] MEDS: inSUlin ASPART (NovoLOG) 1 UNIT/0.01 ML (CHARGE PER UNIT) SC SCH ×6 (00:37→19:59)
[2018-11-13 03:39] LABS: BASOPHILS % (AUTO) 0 % (0-10); EOSINOPHILS # (AUTO) 0.2 10^3/uL (0.0-0.3); EOSINOPHILS % (AUTO) 2 % (0-10); HEMATOCRIT 28 % (35-52); HEMOGLOBIN 8.9 G/DL (11.5-16.0); LYMPHOCYTES # (AUTO) 0.6 X 10^3 (1.0-4.0); LYMPHOCYTES % (AUTO) 6 % (12-44); MEAN CORPUSCULAR HEMOGLOBIN 30 PG (25-34); MEAN CORPUSCULAR HGB CONC 32 G/DL (32-36); MEAN CORPUSCULAR VOLUME 93 FL (80-99); MEAN PLATELET VOLUME 10.1 FL (7.4-10.4); MONOCYTES # (AUTO) 0.9 X 10^3 (0.0-1.0); MONOCYTES % (AUTO) 9 % (0-12); NEUTROPHILS # (AUTO) 8.3 X 10^3 (1.8-7.8); NEUTROPHILS % (AUTO) 83 % (42-75); PLATELET COUNT 254 10^3/uL (130-400); RED CELL DISTRIBUTION WIDTH 16.3 % (10.0-14.5); WHITE BLOOD COUNT 10.1 10^3/uL (4.3-11.0)
[2018-11-13 04:05] LABS: BUN/CREATININE RATIO 21; CALCIUM 7.6 MG/DL (8.5-10.1); CARBON DIOXIDE 23 MMOL/L (21-32); CHLORIDE 110 MMOL/L (98-107); CREATININE SERUM 0.58 MG/DL (0.60-1.30); GFR ESTIMATED > 60; GLUCOSE 183 MG/DL (70-105); MAGNESIUM 1.7 MG/DL (1.8-2.4); PHOSPHORUS 1.8 MG/DL (2.3-4.7); POTASSIUM 3.9 MMOL/L (3.6-5.0); SODIUM 144 MMOL/L (135-145)
[2018-11-13 04:22] LABS: ABG BASE EXCESS -0.1 MMOL/L (-2.5-2.5); ABG OXYGEN SATURATION 94 % (94-100); ABG PCO2 31 MMHG (35-45); ABG PH 7.48 (7.37-7.43); ABG PO2 58 MMHG (79-93); ABG TCO2 24.1 MMOL/L (21.0-31.0); ALLENS TEST YES-POS; INSPIRED O2 30%; VENTILATOR YES
[2018-11-13 04:23] LABS: PATIENT TEMP 97.7
[2018-11-13] MEDS: KCL 20 MEQ TAB (K-DUR) PO SCH (04:43)
[2018-11-13] MEDS: MAGNESIUM 1 GM/100 ML IVPB 100 ML IV SCH ×3 (04:43→05:45)
[2018-11-13] MEDS: MULTIVIT W/MINERALS TAB (THERAGRAN M) PO SCH (04:43)
[2018-11-13] MEDS: POTASSIUM CL 10MEQ/50ML IVPB 50 ML IV SCH (04:43)
[2018-11-13] MEDS: PIPERACILLIN/TAZOBACTAM (BULK) 4.5 GM in NS (IVPB) 100 ML IV SCH ×3 (05:17→22:15)
[2018-11-13] MEDS: metroNIDAZOLE 500MG/100ML IVPB 100 ML IV SCH ×3 (05:17→22:14)
[2018-11-13] MEDS: SUCRALFATE 1 GM (CARAFATE) TAB PO SCH ×4 (05:22→21:19)
--- NOTE | 2018-11-13 06:00 | Pulmonary Progress Note ---
Subjective Time Seen by a Provider: 08:05 Subjective/Events-last exam PT awake on vent. Sepsis Event Evaluation Height, Weight, BMI Height: 5'2.00" Weight: 189lbs. 3.0oz. 85.986627mo; 22.3 BMI Method:Actual Exam Exam Vital Signs Date Time Temp Pulse Resp B/P (MAP) Pulse Ox O2 Delivery O2 Flow Rate FiO2 11/13/18 05:00 98 26 106/59 (75) 99 Mechanical Ventilator 30.00 11/13/18 04:13 122 38 95 30 11/13/18 04:00 Mechanical Ventilator 30 11/13/18 04:00 114 25 134/69 (90) 95 Mechanical Ventilator 30.00 11/13/18 04:00 97.7 11/13/18 03:00 101 23 119/65 (83) 99 Mechanical Ventilator 30.00 11/13/18 02:26 93 20 100 30 11/13/18 02:00 95 20 129/70 (89) 98 Mechanical Ventilator 35.00 11/13/18 01:00 98 11/13/18 01:00 98 15 117/71 (86) 98 Mechanical Ventilator 35.00 11/13/18 00:33 94 20 99 30 11/13/18 00:00 98 16 113/63 (80) 96 Mechanical Ventilator 35.00 11/13/18 00:00 97.7 11/13/18 00:00 Mechanical Ventilator 35 11/12/18 23:00 105 22 112/60 (77) 92 Mechanical Ventilator 35.00 11/12/18 22:20 102 29 96 30 11/12/18 22:00 102 19 111/54 (73) 96 Mechanical Ventilator 35.00 11/12/18 21:00 108 29 104/58 (73) 97 Mechanical Ventilator 35.00 11/12/18 20:05 101 33 97 30 11/12/18 20:00 Mechanical Ventilator 35 11/12/18 20:00 85 26 95/55 (68) 100 Mechanical Ventilator 35.00 11/12/18 19:50 98.6 11/12/18 19:08 101 24 98 30 11/12/18 19:00 98 21 106/56 (73) 99 Mechanical Ventilator 35.00 11/12/18 19:00 100 11/12/18 18:00 101 19 102/58 (73) 97 Mechanical Ventilator 35.00 11/12/18 17:21 113 31 97 30 11/12/18 17:11 109 27 100 30 11/12/18 17:00 110 27 105/61 (76) Mechanical Ventilator 11/12/18 16:31 107 27 108/55 (72) 95 Mechanical Ventilator 35.00 11/12/18 16:00 107 25 118/69 (85) Mechanical Ventilator 35.00 11/12/18 16:00 Mechanical Ventilator 35 11/12/18 15:40 99.0 11/12/18 15:00 114 28 98/46 (63) 94 Mechanical Ventilator 35.00 11/12/18 14:19 110 30 95 35 11/12/18 14:00 110 26 103/54 (70) 86 Mechanical Ventilator 35.00 11/12/18 13:00 109 28 92/47 (62) 98 Mechanical Ventilator 35.00 11/12/18 13:00 110 11/12/18 12:00 Mechanical Ventilator 35 11/12/18 12:00 121 36 97/51 (66) 95 Mechanical Ventilator 35.00 11/12/18 11:30 98.2 11/12/18 11:00 115 32 97/55 (69) 94 Mechanical Ventilator 35.00 11/12/18 10:47 113 29 98 35 11/12/18 10:00 121 31 89/55 (66) 95 Mechanical Ventilator 35.00 11/12/18 09:00 126 36 88/48 (61) 92 Mechanical Ventilator 35.00 11/12/18 08:00 Mechanical Ventilator 35 11/12/18 08:00 115 34 97 35 11/12/18 08:00 121 35 99/52 (68) 97 Mechanical Ventilator 35.00 11/12/18 07:00 118 34 100/51 (67) 98 Mechanical Ventilator 35.00 11/12/18 07:00 99 11/12/18 06:23 117 36 97 35 11/12/18 06:17 116 30 98 35 11/12/18 06:00 111 24 104/56 (72) 98 Mechanical Ventilator 35.00 I & O 11/13/18 07:00 Intake Total 441 ml Output Total 1315 ml Balance -874 ml Height & Weight Height: 5'2.00" Weight: 189lbs. 3.0oz. 85.911194vn; 22.3 BMI Method:Actual General Appearance: Chronically ill, Thin, Other (intubated ) HEENT: Normal ENT Inspection Neck: Normal Inspection, Non Tender Respiratory: Lungs Clear Cardiovascular: Regular Rate, Rhythm Capillary Refill: Less Than 3 Seconds Gastrointestinal: soft, other (incision clean/dry) Extremity: Normal Inspection, Pedal Edema Neurologic/Psychiatric: Alert Skin: Pallor Lymphatic: No Adenopathy Results Lab Laboratory Tests 11/11/18 06:25 11/11/18 18:40 11/12/18 03:05 11/12/18 16:47 11/13/18 03:05 Assessment/Plan Assessment/Plan Acute respiratory failure -Continue ventilator care -Will start weaning vent - TF -Labs and CXR reviewed -D/C Propofol, Fentanyl gtt, Precedex and await pt to wake up. Bilateral pulmonary infiltrates Acute severe GIB - with PUD - s/p ex lap with ligation off gastroduodenal artery and repair of pyloric perforation. - total of 16units of PRBC, 6units of FFP, and 2 units of Platelets this admission -S/p EGD x 3 -Surgery following -Protonix gtt, Octreotide -H&H Q6 Atelectasis -Monitor Anasarca - multifactorial -Will give albumin Q8 x 3 Protein dilan malnutrition -check albumin and prealbumin Tachycardia -Monitor Anemia -Monitor Metabolic lactic acidosis- resolved - change Bicarb gtt to LR -Monitor Hypokalemia, hypomag, hypophos -replace Hypernatremia -monitor -improving Hypotension -Pt is still on levophed-- wean -Monitor Left sided rib fractures s/p fall 2 mo ago -IS -Fall risk Pulmonary infiltrate -Monitor for now Small left pleural effusion -Monitor ARJUN MEADE DO Nov 13, 2018 06:00
[2018-11-13 06:44] LABS: CLARITY,URINE SLIGHTLY CLOUDY; COLOR,URINE AMBER; GLUCOSE, URINE (UA) 1+ (NEGATIVE); KETONES,URINE 4+ (NEGATIVE); LEUKOCYTE ESTERASE ,URINE 2+ (NEGATIVE); NITRITE,URINE POSITIVE (NEGATIVE); PH,URINE 5 (5-9); PROTEIN,URINE 2+ (NEGATIVE); UROBILINOGEN,URINE 1 MG/DL (NORMAL)
[2018-11-13 06:51] LABS: BACTERIA,URINE MODERATE /HPF; BILIRUBIN,URINE 2+ (NEGATIVE); HYALINE CASTS, URINE RARE /LPF; RBC,URINE 0-2 /HPF
--- NOTE | 2018-11-13 07:25 | Progress Note-Hospitalist ---
Subjective HPI/CC On Admission Date Seen by Provider: Nov 13, 2018 Time Seen by Provider: 07:00 CC: GI Bleed HPI: This is a 78-year-old white female who sees Dr. Ruggiero who presented to the [place] ER with hematemesis and melena and hematochezia. She was not maintained on any blood thinners anticoagulation studies were normal and had never had a GI bleed before. Repeat hemoglobin was 5.8 patient was given 2 units of packed red blood cells and Dr. Bautista was consulted. Patient had no significant decompensation during the hospital stay in the ICU or she was admitted to due to severe GI bleed. Dr. Lozada was consulted. She will have EGD and colonoscopy tomorrow by Dr. Bautista. [place] but now I hear she's from [facility] in [place] where she was on skilled care so unsure if she is confused or just a temporary stay at [facility] but I would assume she would've told me she was from a alf where she lives currently. Subjective/Events-last exam Patient experiencing dark urine Elevated total bilirubin noted Still having some bloody stools but does not appear to be an active bleed Weaning attempt from intubation Objective Exam Vital Signs Vital Signs Date Time Temp Pulse Resp B/P (MAP) Pulse Ox O2 Delivery O2 Flow Rate FiO2 11/13/18 17:00 103 11 125/69 (87) 100 Mechanical Ventilator 30.00 11/13/18 16:14 30 11/13/18 15:45 98.0 Capillary Refill : Greater Than 3 SecondsLess Than 3 Seconds General Appearance: Chronically ill, Thin, Other (intubated and sedated) HEENT: Normal ENT Inspection Neck: Normal Inspection, Non Tender Respiratory: Lungs Clear Cardiovascular: Regular Rate, Rhythm Gastrointestinal: Normal Bowel Sounds, No Organomegaly, No Pulsatile Mass, Non Tender, Soft Back: Normal Inspection, No CVA Tenderness, No Vertebral Tenderness Extremity: Normal Inspection, Pedal Edema Neurologic/Psychiatric: No Alert (intubated and sedated) Skin: Pallor Lymphatic: No Adenopathy Results/Procedures Lab Laboratory Tests 11/13/18 03:05 Patient resulted labs reviewed. Imaging: Reviewed Imaging Report Assessment/Plan Assessment and Plan Assess & Plan/Chief Complaint Assessment: Acute respiratory failure needing ICU transfer and intubation GI Bleed EGD x 4 total then s/p surgical repair Pyloric ulcer actively bleeding Dementia Debility Anasarca Plan: ICU Intubation EGD Prognosis guarded Albumin Critical Care Critically Ill Patient Diagnosis/Problems Diagnosis/Problems (1) Ventilator dependence Status: Acute (2) Respiratory failure Status: Acute Qualifiers: Chronicity: acute Respiratory failure complication: hypoxia Qualified Codes: J96.01 - Acute respiratory failure with hypoxia (3) Anemia due to acute blood loss Status: Acute (4) GERD (gastroesophageal reflux disease) Status: Chronic Qualifiers: Esophagitis presence: without esophagitis Qualified Codes: K21.9 - Gastro- esophageal reflux disease without esophagitis (5) Dementia Status: Chronic Qualifiers: Dementia type: Alzheimer's disease Alzheimer's disease onset: unspecified onset Dementia behavioral disturbance: without behavioral disturbance Qualified Codes: G30.9 - Alzheimer's disease, unspecified; F02.80 - Dementia in other diseases classified elsewhere without behavioral disturbance (6) Acute GI bleeding Status: Acute (7) Weakness Status: Acute (8) Transfusion of blood during current hospitalization Status: Acute (9) Pyloric ulcer Status: Acute Qualifiers: Gastric ulcer chronicity: acute Qualified Codes: K25.3 - Acute gastric ulcer without hemorrhage or perforation Clinical Quality Measures DVT/VTE Risk/Contraindication: Risk Factor Score Per Nursin RFS Level Per Nursing on Admit: 4+=Very High Contraindications-Pharm: Other *list below* Other: gi bleed BO SUÁREZ DO Nov 13, 2018 07:25
[2018-11-13] MEDS: VANCOMYCIN 1500 MG/NS 500 ML IVPB IV SCH ×2 (08:41)
[2018-11-13] MEDS: OCTREOTIDE INJECTION 500 MCG in NS (IVPB) 99 ML IV SCH ×2 (08:42→20:00)
--- NOTE | 2018-11-13 09:48 | Diagnostic Imaging Report ---
INDICATION: Mechanical ventilation, acute gastrointestinal bleed, dyspnea. TECHNIQUE: Single view chest 3:33 AM. CORRELATION STUDY: 11/12/2018 FINDINGS: Endotracheal tube, gastric tube and left-sided central line all remain in place. Heart size and mediastinum are generally stable. Scattered areas of pulmonary infiltrate and/or edema do persist but overall perhaps minimally improved. Bilateral pleural effusions. IMPRESSION: 1. Scattered bilateral pulmonary infiltrates and or edema persisting but overall perhaps minimally improved. Bilateral pleural effusions. Dictated by: Dictated on workstation # [id number]
--- NOTE | 2018-11-13 10:24 | Progress Note (SOAP) ---
Subjective Date Seen by a Provider: Nov 13, 2018 Time Seen by a Provider: 10:00 Subjective/Events-last exam patient stable. on vent yet arousable. pulm infiltrate on cxr and diffuse third space edema at this time. Hb stable. Objective Exam Vital Signs Date Time Temp Pulse Resp B/P (MAP) Pulse Ox O2 Delivery O2 Flow Rate FiO2 11/13/18 10:00 106 20 106/64 (78) 97 Mechanical Ventilator 30.00 11/13/18 09:00 105 19 115/63 (80) 99 Mechanical Ventilator 30.00 11/13/18 08:00 97.8 11/13/18 08:00 105 27 75/51 (59) 97 Mechanical Ventilator 30.00 11/13/18 08:00 Mechanical Ventilator 30 11/13/18 07:00 106 28 97/55 (69) 96 Mechanical Ventilator 30.00 11/13/18 07:00 106 11/13/18 06:46 112 30 95 30 11/13/18 05:00 98 26 106/59 (75) 99 Mechanical Ventilator 30.00 11/13/18 04:13 122 38 95 30 11/13/18 04:00 Mechanical Ventilator 30 11/13/18 04:00 114 25 134/69 (90) 95 Mechanical Ventilator 30.00 11/13/18 04:00 97.7 11/13/18 03:00 101 23 119/65 (83) 99 Mechanical Ventilator 30.00 11/13/18 02:26 93 20 100 30 11/13/18 02:00 95 20 129/70 (89) 98 Mechanical Ventilator 35.00 11/13/18 01:00 98 11/13/18 01:00 98 15 117/71 (86) 98 Mechanical Ventilator 35.00 11/13/18 00:33 94 20 99 30 11/13/18 00:00 98 16 113/63 (80) 96 Mechanical Ventilator 35.00 11/13/18 00:00 97.7 11/13/18 00:00 Mechanical Ventilator 35 11/12/18 23:00 105 22 112/60 (77) 92 Mechanical Ventilator 35.00 11/12/18 22:20 102 29 96 30 11/12/18 22:00 102 19 111/54 (73) 96 Mechanical Ventilator 35.00 11/12/18 21:00 108 29 104/58 (73) 97 Mechanical Ventilator 35.00 11/12/18 20:05 101 33 97 30 11/12/18 20:00 Mechanical Ventilator 35 11/12/18 20:00 85 26 95/55 (68) 100 Mechanical Ventilator 35.00 11/12/18 19:50 98.6 11/12/18 19:08 101 24 98 30 11/12/18 19:00 98 21 106/56 (73) 99 Mechanical Ventilator 35.00 11/12/18 19:00 100 11/12/18 18:00 101 19 102/58 (73) 97 Mechanical Ventilator 35.00 11/12/18 17:21 113 31 97 30 11/12/18 17:11 109 27 100 30 11/12/18 17:00 110 27 105/61 (76) Mechanical Ventilator 11/12/18 16:31 107 27 108/55 (72) 95 Mechanical Ventilator 35.00 11/12/18 16:00 107 25 118/69 (85) Mechanical Ventilator 35.00 11/12/18 16:00 Mechanical Ventilator 35 11/12/18 15:40 99.0 11/12/18 15:00 114 28 98/46 (63) 94 Mechanical Ventilator 35.00 11/12/18 14:19 110 30 95 35 11/12/18 14:00 110 26 103/54 (70) 86 Mechanical Ventilator 35.00 11/12/18 13:00 109 28 92/47 (62) 98 Mechanical Ventilator 35.00 11/12/18 13:00 110 11/12/18 12:00 Mechanical Ventilator 35 11/12/18 12:00 121 36 97/51 (66) 95 Mechanical Ventilator 35.00 11/12/18 11:30 98.2 11/12/18 11:00 115 32 97/55 (69) 94 Mechanical Ventilator 35.00 11/12/18 10:47 113 29 98 35 I & O 11/13/18 07:00 Intake Total 601 ml Output Total 1585 ml Balance -984 ml Capillary Refill : Greater Than 3 SecondsLess Than 3 Seconds General Appearance: No Apparent Distress HEENT: PERRL/EOMI Neck: Full Range of Motion Respiratory: Decreased Breath Sounds Cardiovascular: Regular Rate, Rhythm Gastrointestinal: soft, other (inc clean/dry) Extremity: Normal Capillary Refill Neurologic/Psychiatric: Alert Skin: Normal Color Lymphatic: No Adenopathy Results Lab Laboratory Tests 11/12/18 12:17: Glucometer 189H 11/12/18 15:56: Glucometer 202H 11/12/18 16:47: Hemoglobin 9.0L, Hematocrit 29L 11/12/18 20:02: Glucometer 163H 11/13/18 00:36: Glucometer 156H 11/13/18 03:05: White Blood Count 10.1, Red Blood Count 2.99L, Hemoglobin 8.9L, Hematocrit 28L, Mean Corpuscular Volume 93, Mean Corpuscular Hemoglobin 30, Mean Corpuscular Hemoglobin Concent 32, Red Cell Distribution Width 16.3H, Platelet Count 254, Mean Platelet Volume 10.1, Neutrophils (%) (Auto) 83H, Lymphocytes (%) (Auto) 6L , Monocytes (%) (Auto) 9, Eosinophils (%) (Auto) 2, Basophils (%) (Auto) 0, Neutrophils # (Auto) 8.3H, Lymphocytes # (Auto) 0.6L, Monocytes # (Auto) 0.9, Eosinophils # (Auto) 0.2, Basophils # (Auto) 0.0, Sodium Level 144, Potassium Level 3.9, Chloride Level 110H, Carbon Dioxide Level 23, Anion Gap 11, Blood Urea Nitrogen 12, Creatinine 0.58L, Estimat Glomerular Filtration Rate > 60, BUN /Creatinine Ratio 21, Glucose Level 183H, Calcium Level 7.6L, Phosphorus Level 1.8L, Magnesium Level 1.7L, B-Type Natriuretic Peptide 175.6H 11/13/18 04:15: Blood Gas Puncture Site L [facility], Blood Gas Patient Temperature 97.7, Arterial Blood pH 7.48H, Arterial Blood Partial Pressure CO2 31L, Arterial Blood Partial Pressure O2 58L, Arterial Blood HCO3 23, Arterial Blood Total CO2 24.1, Arterial Blood Oxygen Saturation 94, Arterial Blood Base Excess -0.1, Jackson Test YES-POS, Blood Gas Ventilator Setting YES, Blood Gas Inspired Oxygen 30% 11/13/18 06:35: Urine Color AMBERH, Urine Clarity SLIGHTLY CLOUDY, Urine pH 5, Urine Specific [place] 1.020, Urine Protein 2+H, Urine Glucose (UA) 1+H, Urine Ketones 4+H, Urine Nitrite POSITIVEH, Urine Bilirubin 2+H, Urine Urobilinogen 1, Urine Leukocyte Esterase 2+H, Urine RBC (Auto) 1+H, Urine RBC 0-2, Urine WBC 5-10H, Urine Squamous Epithelial Cells 2-5, Urine Crystals NONE, Urine Bacteria MODERATEH, Urine Casts PRESENT, Urine Hyaline Casts RARE, Urine Mucus NEGATIVE, Urine Culture Indicated YES 11/13/18 08:36: Glucometer 194H Microbiology 11/12/18 Gram Stain - Final, Complete 11/12/18 Sputum Culture - Final, Complete Usual upper respiratory mandy Assessment/Plan Assessment/Plan Assess & Plan/Chief Complaint bleeding pyloric ulcer s/p oversew and pyloroplasty. continue vent ween per pulm. cont PPI and sandostatin gtt. tube feeds held due to increased residual. may need TPN. pulm infiltrate and anasarca. renal gfr good. will start lasix. Clinical Quality Measures DVT/VTE Risk/Contraindication: Risk Factor Score Per Nursin RFS Level Per Nursing on Admit: 4+=Very High Contraindications-Pharm: Other *list below* Other: gi bleed PJ BHATT MD Nov 13, 2018 10:24
[2018-11-13] MEDS ORDERED: FUROSEMIDE 40 MG/4 ML INJ (LASIX) IVP NR (10:30)
--- NOTE | 2018-11-13 13:29 | Progress Note-Cardiology ---
Cardiology SOAP Progress Note Subjective: Intubated, on mech vent, not able to provide any history Objective: I&O/Vital Signs 11/13/18 11/13/18 11/13/18 11/13/18 02:00 02:26 03:00 04:00 Temp 97.7 Pulse 95 93 101 Resp 20 20 23 B/P (MAP) 129/70 (89) 119/65 (83) Pulse Ox 98 100 99 O2 Delivery Mechanical Ventilator Mechanical Ventilator O2 Flow Rate 35.00 30.00 FiO2 30 11/13/18 11/13/18 11/13/18 11/13/18 04:00 04:00 04:13 05:00 Pulse 114 122 98 Resp 25 38 26 B/P (MAP) 134/69 (90) 106/59 (75) Pulse Ox 95 95 99 O2 Delivery Mechanical Ventilator Mechanical Ventilator Mechanical Ventilator O2 Flow Rate 30.00 30.00 FiO2 30 30 11/13/18 11/13/18 11/13/18 11/13/18 06:46 07:00 07:00 08:00 Pulse 112 106 106 Resp 30 28 B/P (MAP) 97/55 (69) Pulse Ox 95 96 O2 Delivery Mechanical Ventilator Mechanical Ventilator O2 Flow Rate 30.00 FiO2 30 30 11/13/18 11/13/18 11/13/18 11/13/18 08:00 08:00 09:00 10:00 Temp 97.8 Pulse 105 105 106 Resp 27 19 20 B/P (MAP) 75/51 (59) 115/63 (80) 106/64 (78) Pulse Ox 97 99 97 O2 Delivery Mechanical Ventilator Mechanical Ventilator Mechanical Ventilator O2 Flow Rate 30.00 30.00 30.00 11/13/18 11/13/18 11/13/18 11/13/18 10:17 11:00 11:40 12:00 Temp 98.7 Pulse 105 102 112 Resp 24 20 34 B/P (MAP) 115/58 (77) 120/98 (105) Pulse Ox 97 98 97 O2 Delivery Mechanical Ventilator Mechanical Ventilator O2 Flow Rate 30.00 30.00 FiO2 30 11/13/18 00:00 Intake Total 381 ml Output Total 710 ml Balance -329 ml Weight (Pounds): 187 Weight (Ounces): 4.0 Weight (Calculated Kilograms): 84.121208 Constitutional: appears stated age, well-developed, well-nourished, other ( intubated/ventilated.) Respiratory: other (intubated and on mec vent; good bilat air entry) Cardiovascular: regular rate-rhythm, S1 and S2 Gastrointestional: soft; No guarding, No rebound; audible bowel sounds Extremities: No clubbing, No cyanosis; significant edema (involving upper and lower limbs) Neurologic/Psychiatric: other (On mech vent; unable to cooperate with any neuro exam) Skin: No diaphoresis; pallor; No rash on exposed areas, No ulcerations on exposed areas Results/Procedures: Labs Laboratory Tests 11/12/18 15:56: Glucometer 202H 11/12/18 16:47: Hemoglobin 9.0L, Hematocrit 29L 11/12/18 20:02: Glucometer 163H 11/13/18 00:36: Glucometer 156H 11/13/18 03:05: White Blood Count 10.1, Red Blood Count 2.99L, Hemoglobin 8.9L, Hematocrit 28L, Mean Corpuscular Volume 93, Mean Corpuscular Hemoglobin 30, Mean Corpuscular Hemoglobin Concent 32, Red Cell Distribution Width 16.3H, Platelet Count 254, Mean Platelet Volume 10.1, Neutrophils (%) (Auto) 83H, Lymphocytes (%) (Auto) 6L , Monocytes (%) (Auto) 9, Eosinophils (%) (Auto) 2, Basophils (%) (Auto) 0, Neutrophils # (Auto) 8.3H, Lymphocytes # (Auto) 0.6L, Monocytes # (Auto) 0.9, Eosinophils # (Auto) 0.2, Basophils # (Auto) 0.0, Sodium Level 144, Potassium Level 3.9, Chloride Level 110H, Carbon Dioxide Level 23, Anion Gap 11, Blood Urea Nitrogen 12, Creatinine 0.58L, Estimat Glomerular Filtration Rate > 60, BUN /Creatinine Ratio 21, Glucose Level 183H, Calcium Level 7.6L, Phosphorus Level 1.8L, Magnesium Level 1.7L, B-Type Natriuretic Peptide 175.6H 11/13/18 04:15: Blood Gas Puncture Site L [facility], Blood Gas Patient Temperature 97.7, Arterial Blood pH 7.48H, Arterial Blood Partial Pressure CO2 31L, Arterial Blood Partial Pressure O2 58L, Arterial Blood HCO3 23, Arterial Blood Total CO2 24.1, Arterial Blood Oxygen Saturation 94, Arterial Blood Base Excess -0.1, Jackson Test YES-POS, Blood Gas Ventilator Setting YES, Blood Gas Inspired Oxygen 30% 11/13/18 06:35: Urine Color AMBERH, Urine Clarity SLIGHTLY CLOUDY, Urine pH 5, Urine Specific [place] 1.020, Urine Protein 2+H, Urine Glucose (UA) 1+H, Urine Ketones 4+H, Urine Nitrite POSITIVEH, Urine Bilirubin 2+H, Urine Urobilinogen 1, Urine Leukocyte Esterase 2+H, Urine RBC (Auto) 1+H, Urine RBC 0-2, Urine WBC 5-10H, Urine Squamous Epithelial Cells 2-5, Urine Crystals NONE, Urine Bacteria MODERATEH, Urine Casts PRESENT, Urine Hyaline Casts RARE, Urine Mucus NEGATIVE, Urine Culture Indicated YES 11/13/18 08:36: Glucometer 194H 11/13/18 11:48: Glucometer 166H Microbiology 11/12/18 Gram Stain - Final, Complete 11/12/18 Sputum Culture - Final, Complete Usual upper respiratory mandy Laboratory Tests 11/11/18 18:40 11/12/18 03:05 11/12/18 16:47 11/13/18 03:05 A/P: Assessment: Large GI bleed; s/p exploratory laparotomy, pyloromyotomy, ligation of gastroduodenal artery, repair of perforated pyloric ulcer Transient shock due to blood loss Acute resp failure. Currently with pulmonary infiltrates: ARDS vs pneumonia vs atelectasis Echocardiogram done 11/04/2018 shows normal LV function with mild to moderate LVH , moderate to severe pulmonary hypertension. Collapsed IVC suggesting significant volume depletion. Sinus tachycardia, likely due systemic illness Generalized edema, likely due marked hypoalbuminemia Plan: * She remains critically ill and still on mech vent * Management of resp failure and hypoalbuminemia and nutritional status is with the Med and ICU services * Diuretics as needed and as tolerated * Monitor labs MARGARITA CHAMBERLAIN MD FACP FAC CCDS Nov 13, 2018 13:29
[2018-11-13] MEDS: LACTATED RINGERS IV SCH ×2 (20:39)
[2018-11-13] MEDS: POTASSIUM CHLORIDE IV SCH ×2 (20:39)
[2018-11-13] MEDS: ATENOLOL 25 MG (TENORMIN) TAB PO SCH (21:20)
[2018-11-13] MEDS: PANTOPRAZOLE INJECTION 200 MG in NS (IVPB) 100 ML IV SCH (22:18)
[2018-11-14] VITALS (38 sets, daily range): BP systolic 64–154; BP diastolic 32–73
[2018-11-14] MEDS: inSUlin ASPART (NovoLOG) 1 UNIT/0.01 ML (CHARGE PER UNIT) SC SCH ×5 (00:09→18:36)
[2018-11-14] MEDS: fentaNYL 1,250 MCG/NS 250 ML DRIP IV SCH ×2 (00:23)
[2018-11-14 03:08] LABS: BASOPHILS % (AUTO) 0 % (0-10); EOSINOPHILS # (AUTO) 0.1 10^3/uL (0.0-0.3); EOSINOPHILS % (AUTO) 1 % (0-10); HEMATOCRIT 28 % (35-52); LYMPHOCYTES # (AUTO) 0.7 X 10^3 (1.0-4.0); LYMPHOCYTES % (AUTO) 7 % (12-44); MEAN CORPUSCULAR HEMOGLOBIN 30 PG (25-34); MEAN CORPUSCULAR HGB CONC 32 G/DL (32-36); MEAN CORPUSCULAR VOLUME 92 FL (80-99); MEAN PLATELET VOLUME 10.1 FL (7.4-10.4); MONOCYTES # (AUTO) 0.5 X 10^3 (0.0-1.0); MONOCYTES % (AUTO) 5 % (0-12); NEUTROPHILS # (AUTO) 8.7 X 10^3 (1.8-7.8); NEUTROPHILS % (AUTO) 88 % (42-75); PLATELET COUNT 288 10^3/uL (130-400); RED CELL DISTRIBUTION WIDTH 16.2 % (10.0-14.5)
[2018-11-14 03:28] LABS: BUN/CREATININE RATIO 17; CALCIUM 7.3 MG/DL (8.5-10.1); CARBON DIOXIDE 23 MMOL/L (21-32); CHLORIDE 107 MMOL/L (98-107); CREATININE SERUM 0.53 MG/DL (0.60-1.30); GFR ESTIMATED > 60; GLUCOSE 144 MG/DL (70-105); MAGNESIUM 1.5 MG/DL (1.8-2.4); PHOSPHORUS 1.7 MG/DL (2.3-4.7); POTASSIUM 3.1 MMOL/L (3.6-5.0); SODIUM 141 MMOL/L (135-145)
[2018-11-14] MEDS: POTASSIUM CL 10MEQ/50ML IVPB 50 ML IV SCH ×5 (05:07→07:06)
[2018-11-14] MEDS: MAGNESIUM 1 GM/100 ML IVPB 100 ML IV SCH ×3 (05:10→06:06)
[2018-11-14] MEDS: KCL 20 MEQ TAB (K-DUR) PO SCH (05:11)
[2018-11-14 05:33] LABS: ABG BASE EXCESS 3.5 MMOL/L (-2.5-2.5); ABG OXYGEN SATURATION 95 % (94-100); ABG PCO2 31 MMHG (35-45); ABG PH 7.54 (7.37-7.43); ABG PO2 61 MMHG (79-93); ABG TCO2 27.2 MMOL/L (21.0-31.0)
[2018-11-14 05:34] LABS: ALLENS TEST YES-POS; INSPIRED O2 25%; PATIENT TEMP 98.1; VENTILATOR YES
[2018-11-14] MEDS: metroNIDAZOLE 500MG/100ML IVPB 100 ML IV SCH (06:06)
--- NOTE | 2018-11-14 06:20 | Pulmonary Progress Note ---
Subjective Time Seen by a Provider: 06:27 Subjective/Events-last exam Pt is awake alert on vent. Sepsis Event Evaluation Height, Weight, BMI Height: 5'2.00" Weight: 187lbs. 4.0oz. 84.250603yc; 22.3 BMI Method:Actual Exam Exam Vital Signs Date Time Temp Pulse Resp B/P (MAP) Pulse Ox O2 Delivery O2 Flow Rate FiO2 11/14/18 04:00 86 15 94/58 (70) 99 Mechanical Ventilator 25.00 11/14/18 03:58 86 16 98 25 11/14/18 03:00 97 21 110/71 (84) 95 Mechanical Ventilator 25.00 11/14/18 02:40 99 17 95 25 11/14/18 02:00 89 15 111/61 (78) 98 Mechanical Ventilator 25.00 11/14/18 01:00 92 11/14/18 01:00 92 17 113/63 (80) 97 Mechanical Ventilator 25.00 11/14/18 00:26 98.4 11/14/18 00:15 101 17 96 25 11/14/18 00:00 Mechanical Ventilator 30 11/14/18 00:00 97 25 122/66 (84) 97 Mechanical Ventilator 25.00 11/13/18 23:00 88 20 110/71 (84) 98 Mechanical Ventilator 25.00 11/13/18 22:00 93 25 117/72 (87) 96 Mechanical Ventilator 25.00 11/13/18 21:45 92 17 95 25 11/13/18 21:00 86 15 107/60 (76) 95 Mechanical Ventilator 25.00 11/13/18 20:22 96 16 94 25 11/13/18 20:00 Mechanical Ventilator 30 11/13/18 20:00 101 35 123/69 (87) 93 Mechanical Ventilator 25.00 11/13/18 19:45 97.6 11/13/18 19:00 97 16 106/58 (74) 97 Mechanical Ventilator 25.00 11/13/18 19:00 97 11/13/18 18:35 98 16 99 25 11/13/18 18:00 99 20 107/61 (76) 99 Mechanical Ventilator 30.00 11/13/18 17:00 103 11 125/69 (87) 100 Mechanical Ventilator 30.00 11/13/18 16:14 Mechanical Ventilator 30 11/13/18 16:00 103 24 120/91 (101) 100 Mechanical Ventilator 30.00 11/13/18 15:45 98.0 11/13/18 15:00 112 20 120/63 (82) 98 Mechanical Ventilator 30.00 11/13/18 14:21 114 25 99 30 11/13/18 14:00 113 19 113/72 (86) 98 Mechanical Ventilator 30.00 11/13/18 13:00 110 22 119/71 (87) 92 Mechanical Ventilator 30.00 11/13/18 13:00 115 11/13/18 12:00 Mechanical Ventilator 30 11/13/18 12:00 112 34 120/98 (105) 97 Mechanical Ventilator 30.00 11/13/18 11:40 98.7 11/13/18 11:00 102 20 115/58 (77) 98 Mechanical Ventilator 30.00 11/13/18 10:17 105 24 97 30 11/13/18 10:00 106 20 106/64 (78) 97 Mechanical Ventilator 30.00 11/13/18 09:00 105 19 115/63 (80) 99 Mechanical Ventilator 30.00 11/13/18 08:00 97.8 11/13/18 08:00 105 27 75/51 (59) 97 Mechanical Ventilator 30.00 11/13/18 08:00 Mechanical Ventilator 30 11/13/18 07:00 106 28 97/55 (69) 96 Mechanical Ventilator 30.00 11/13/18 07:00 106 11/13/18 06:46 112 30 95 30 I & O 11/14/18 07:00 Intake Total 1840 ml Output Total 3740 ml Balance -1900 ml Height & Weight Height: 5'2.00" Weight: 187lbs. 4.0oz. 84.419584jz; 22.3 BMI Method:Actual General Appearance: Chronically ill, Thin, Other (intubated and sedated) HEENT: Normal ENT Inspection Neck: Normal Inspection, Non Tender Respiratory: Lungs Clear Cardiovascular: Regular Rate, Rhythm Capillary Refill: Less Than 3 Seconds Gastrointestinal: soft, other (inc clean/dry) Extremity: Normal Inspection, Pedal Edema Neurologic/Psychiatric: No Alert (intubated and sedated) Skin: Pallor Lymphatic: No Adenopathy Results Lab Laboratory Tests 11/12/18 16:47 11/13/18 03:05 11/14/18 03:00 Assessment/Plan Assessment/Plan Acute respiratory failure -Continue ventilator care -Will start weaning vent. failed weaning through the weekend. -Will attempt weaning again today. IF she does not do well consider tracheostomy tomorrow if ok with family. - TF -Labs and CXR reviewed -D/C Propofol, Fentanyl gtt, Precedex and await pt to wake up. Bilateral pulmonary infiltrates Acute severe GIB - with PUD - s/p ex lap with ligation off gastroduodenal artery and repair of pyloric perforation. - total of 16units of PRBC, 6units of FFP, and 2 units of Platelets this admission -S/p EGD x 3 -Surgery following -D/C Protonix gtt, Octreotide hypomag/hypophos/hypokalemia -replace Cellulitis -continue abx Atelectasis -Monitor Anasarca - multifactorial -Will give albumin Q8 x 3 Protein dilan malnutrition -check albumin and prealbumin Tachycardia -Monitor Anemia -Monitor Metabolic lactic acidosis- resolved - change Bicarb gtt to LR -Monitor Hypokalemia, hypomag, hypophos -replace Hypernatremia -monitor -improving Left sided rib fractures s/p fall 2 mo ago -IS -Fall risk Pulmonary infiltrate -Monitor for now Small left pleural effusion -Monitor prognosis is poor. Will attempt weaning today ARJUN MEADE DO Nov 14, 2018 06:20
[2018-11-14] MEDS ORDERED: TROUGH ORDER-PHARMACY XX NR (06:30)
[2018-11-14] MEDS ORDERED: MAGNESIUM 1 GM/100 ML IVPB 100 ML IV ONE (06:30)
[2018-11-14] MEDS ORDERED: POTASSIUM PHOSPHATE INJ 30 MM in NS (IVPB) 250 ML IV ONE (06:30)
[2018-11-14] MEDS: SUCRALFATE 1 GM (CARAFATE) TAB PO SCH ×4 (06:55→21:02)
[2018-11-14] MEDS: PIPERACILLIN/TAZOBACTAM (BULK) 4.5 GM in NS (IVPB) 100 ML IV SCH ×3 (06:55→21:02)
[2018-11-14] MEDS: MULTIVIT W/MINERALS TAB (THERAGRAN M) PO SCH (07:50)
--- NOTE | 2018-11-14 07:54 | Diagnostic Imaging Report ---
INDICATION: Intubation. COMPARISON: 11/13/2018. FINDINGS: Stable ET and enteric tubes. Multifocal pulmonary opacities are unchanged. Potential small bilateral pleural effusions are unchanged. No pneumothorax. Grossly stable cardiomediastinal silhouette. Stable position of left subclavian central venous catheter. IMPRESSION: 1. Stable support devices. 2. No change in multifocal pulmonary opacities and small pleural effusions. Dictated by: Dictated on workstation # [id number]
--- NOTE | 2018-11-14 08:26 | NUR ---
VANCOMYCIN DOSING TROUGH LEVEL 8.5; GIVE SCHEDULED AM DOSE THEN CHANGE TO VANC 1 GM Q12H CHECK TROUGH LEVEL 11/15 AT 1900
[2018-11-14] MEDS: PANTOPRAZOLE 40 MG (PROTONIX) VIAL IV SCH ×2 (10:38→21:02)
[2018-11-14] MEDS: VANCOMYCIN 1500 MG/NS 500 ML IVPB IV SCH ×2 (10:38)
[2018-11-14] MEDS: POTASSIUM CHLORIDE IV SCH ×4 (10:40→23:04)
[2018-11-14] MEDS: LACTATED RINGERS IV SCH ×4 (10:40→23:04)
--- NOTE | 2018-11-14 13:33 | Progress Note-Hospitalist ---
Progress Note Progress Notes/Assess & Plan Date Seen 11/14/18 Time Seen by Provider: 13:30 Assessment & Plan The patient remains on the ventilator and sedated. AN attempt is to be made today to extubate. She went to the OR one week ago today with a bowel perforation continued bleeding and anemia and hypotension. Blood pressure and kidney function have been satisfactory since then. Hemoglobin is now 9. Potassium is slightly low at 3.1. Physical exam: She is sedated. She is on the ventilator her lungs are clear. CV is regular. Impression: Status 7 days postop bleeding duodenal ulcer with perforation. Plan: As above attempt at discontinuation of ventilator PEYTON DIETZ MD Nov 14, 2018 13:33
--- NOTE | 2018-11-14 13:49 | NUR ---
Patient placed on 04/22 for a weaning trial. RR 40-50, HR 121, SpO2 87-88%, Vt 249. called Dr. Lozada and switched patient back to A/C mode.
--- NOTE | 2018-11-14 15:36 | Cardiology Progress Note ---
Cardiology SOAP Progress Note Subjective: Intubated/ventilated. Objective: I&O/Vital Signs 11/14/18 11/14/18 11/14/18 11/14/18 03:58 04:00 04:00 04:00 Temp 98.1 Pulse 86 86 Resp 16 15 B/P (MAP) 94/58 (70) Pulse Ox 98 99 O2 Delivery Mechanical Ventilator Mechanical Ventilator O2 Flow Rate 25.00 FiO2 25 30 11/14/18 11/14/18 11/14/18 11/14/18 05:00 06:00 06:19 06:39 Pulse 99 93 93 102 Resp 12 16 18 35 B/P (MAP) 118/73 (88) 100/66 (77) Pulse Ox 98 99 99 97 O2 Delivery Mechanical Ventilator Mechanical Ventilator O2 Flow Rate 25.00 25.00 FiO2 25 11/14/18 11/14/18 11/14/18 11/14/18 07:00 07:00 08:00 08:04 Temp 97.8 Pulse 101 107 103 Resp 21 18 B/P (MAP) 118/65 (82) 105/53 (70) Pulse Ox 94 95 95 O2 Delivery Mechanical Ventilator Mechanical Ventilator Mechanical Ventilator O2 Flow Rate 25.00 25.00 FiO2 25 11/14/18 11/14/18 11/14/18 11/14/18 08:36 09:00 10:00 10:45 Pulse 92 103 101 96 Resp 19 35 15 28 B/P (MAP) 107/55 (72) 97/58 (71) Pulse Ox 99 98 99 98 O2 Delivery Mechanical Ventilator Mechanical Ventilator O2 Flow Rate 25.00 25.00 FiO2 25 25 11/14/18 11/14/18 11/14/18 11/14/18 11:00 12:00 12:00 12:00 Temp 97.2 Pulse 106 99 Resp 13 14 B/P (MAP) 103/57 (72) 108/39 (62) Pulse Ox 98 97 95 O2 Delivery Mechanical Ventilator Mechanical Ventilator Mechanical Ventilator O2 Flow Rate 25.00 25.00 FiO2 25 11/14/18 11/14/18 11/14/18 11/14/18 12:26 13:00 13:00 13:51 Pulse 101 104 101 123 Resp 33 28 23 B/P (MAP) 97/54 (68) Pulse Ox 99 99 96 O2 Delivery Mechanical Ventilator O2 Flow Rate 25.00 FiO2 25 30 11/14/18 14:00 Pulse 124 Resp 49 B/P (MAP) 88/53 (65) Pulse Ox 96 O2 Delivery Mechanical Ventilator O2 Flow Rate 25.00 11/14/18 00:00 Intake Total 1520 ml Output Total 3280 ml Balance -1760 ml Weight (Pounds): 185 Weight (Ounces): 5.0 Weight (Calculated Kilograms): 84.481177 Constitutional: appears stated age; No AAO x 3, No apparent distress, No PERRL ; well-developed, well-nourished, other (intubated/ventilated.) Respiratory: No accessory muscle use, No respiratory distress, No chest tender , No chest expansion is symmetric; chest is bilaterally symmetric; No lungs clear to percussion; lungs clear to auscultation; No crackles, No rhonchi, No rales, No stridor, No wheezing, No pleural rub; other (intubated and on mec vent ; good bilat air entry) Cardiovascular: regular rate-rhythm; No irregularly irregular, No extra beats, No parasternal heave is noted, No JVD, No edema, No bradycardia, No tachycardia , No point of maximal impulse, No cardiac thrills are palpable; S1 and S2; No gallop/S3, No gallop/S4, No diastolic murmur, No systolic murmur, No friction rub, No click, No other Gastrointestional: No tender; soft; No round, No distended, No pulsatile mass, No organomegaly, No guarding, No rebound, No tenderness, No hernia, No mass; audible bowel sounds; No abnormal bowel sounds, No abdominal bruits, No spleenomegaly, No other Extremities: No clubbing, No cyanosis; significant edema (involving upper and lower limbs) Neurologic/Psychiatric: other (On mech vent; unable to cooperate with any neuro exam) Skin: No diaphoresis; pallor; No rash on exposed areas, No ulcerations on exposed areas Results/Procedures: Labs Laboratory Tests 11/13/18 15:57: Glucometer 146H 11/13/18 19:44: Glucometer 151H 11/13/18 23:57: Glucometer 194H 11/14/18 03:00: White Blood Count 10.0, Red Blood Count 3.03L, Hemoglobin 9.0L, Hematocrit 28L, Mean Corpuscular Volume 92, Mean Corpuscular Hemoglobin 30, Mean Corpuscular Hemoglobin Concent 32, Red Cell Distribution Width 16.2H, Platelet Count 288, Mean Platelet Volume 10.1, Neutrophils (%) (Auto) 88H, Lymphocytes (%) (Auto) 7L , Monocytes (%) (Auto) 5, Eosinophils (%) (Auto) 1, Basophils (%) (Auto) 0, Neutrophils # (Auto) 8.7H, Lymphocytes # (Auto) 0.7L, Monocytes # (Auto) 0.5, Eosinophils # (Auto) 0.1, Basophils # (Auto) 0.0, Sodium Level 141, Potassium Level 3.1L, Chloride Level 107, Carbon Dioxide Level 23, Anion Gap 11, Blood Urea Nitrogen 9, Creatinine 0.53L, Estimat Glomerular Filtration Rate > 60, BUN/ Creatinine Ratio 17, Glucose Level 144H, Calcium Level 7.3L, Phosphorus Level 1.7L, Magnesium Level 1.5L 11/14/18 05:25: Blood Gas Puncture Site L [facility], Blood Gas Patient Temperature 98.1, Arterial Blood pH 7.54H, Arterial Blood Partial Pressure CO2 31L, Arterial Blood Partial Pressure O2 61L, Arterial Blood HCO3 26, Arterial Blood Total CO2 27.2, Arterial Blood Oxygen Saturation 95, Arterial Blood Base Excess 3.5H, Jackson Test YES-POS, Blood Gas Ventilator Setting YES, Blood Gas Inspired Oxygen 25% 11/14/18 07:40: Glucometer 171H, Vancomycin Level Trough 8.5L Microbiology 11/12/18 Gram Stain - Final, Complete 11/12/18 Sputum Culture - Final, Complete Usual upper respiratory mandy 11/13/18 Urine Culture - Final, Complete NO GROWTH A/P: Assessment/Dx: Severe GI bleeding, anemia, Severe respiratory failure Plan: Severe GI bleeding, transfusion with PRBCs, status post upper and lower GI endoscopy. s/p exploratory laparotomy, pyloromyotomy, ligation of gastroduodenal artery, repair of perforated pyloric ulcer. Transient shock due to blood loss Acute resp failure. Currently with pulmonary infiltrates: ARDS vs pneumonia vs atelectasis Echocardiogram done 11/04/2018 shows normal LV function with mild to moderate LVH , moderate to severe pulmonary hypertension. Collapsed IVC suggesting significant volume depletion. Sinus tachycardia, resolved. Stable cardiac-valenzuela. Thank you for your consultation. Please call me if you have any questions. Belinda Harley MD, FACP, FACC, FSCAI, FHRS, CCDS Interventional Cardiology Cardiac Electrophysiology Vascular Medicine and Endovascular Interventions Yan HARLEY MD Nov 14, 2018 15:36
[2018-11-14] MEDS: fentaNYL INJECTION 100 MCG/2 ML AMP IVP PRN ×2 (17:08→20:55)
--- NOTE | 2018-11-14 17:55 | Progress Note ---
Subjective Date Seen by a Provider: Nov 14, 2018 Time Seen by a Provider: 11:51 Subjective/Events-last exam patient intubated. Hemoglobin stable trying to wean. Patient follows basic commands. at bedside. Objective Exam Vital Signs Date Time Temp Pulse Resp B/P (MAP) Pulse Ox O2 Delivery O2 Flow Rate FiO2 11/14/18 17:00 101 22 154/73 (100) 95 Mechanical Ventilator 25.00 11/14/18 16:54 115 19 100 30 11/14/18 16:00 114 32 87/54 (65) 100 Mechanical Ventilator 25.00 11/14/18 16:00 95 Mechanical Ventilator 25 11/14/18 15:00 115 51 91/56 (68) 100 Mechanical Ventilator 25.00 11/14/18 14:00 124 49 88/53 (65) 96 Mechanical Ventilator 25.00 11/14/18 13:51 123 23 96 30 11/14/18 13:00 101 28 97/54 (68) 99 Mechanical Ventilator 25.00 11/14/18 13:00 104 11/14/18 12:26 101 33 99 25 11/14/18 12:00 95 Mechanical Ventilator 25 11/14/18 12:00 97.2 11/14/18 12:00 99 14 108/39 (62) 97 Mechanical Ventilator 25.00 11/14/18 11:00 106 13 103/57 (72) 98 Mechanical Ventilator 25.00 11/14/18 10:45 96 28 98 25 11/14/18 10:00 101 15 97/58 (71) 99 Mechanical Ventilator 25.00 11/14/18 09:00 103 35 107/55 (72) 98 Mechanical Ventilator 25.00 11/14/18 08:36 92 19 99 25 11/14/18 08:04 95 Mechanical Ventilator 25 11/14/18 08:00 97.8 103 18 105/53 (70) 95 Mechanical Ventilator 25.00 11/14/18 07:00 107 21 118/65 (82) 94 Mechanical Ventilator 25.00 11/14/18 07:00 101 11/14/18 06:39 102 35 97 11/14/18 06:19 93 18 99 25 11/14/18 06:00 93 16 100/66 (77) 99 Mechanical Ventilator 25.00 11/14/18 05:00 99 12 118/73 (88) 98 Mechanical Ventilator 25.00 11/14/18 04:00 Mechanical Ventilator 30 11/14/18 04:00 98.1 11/14/18 04:00 86 15 94/58 (70) 99 Mechanical Ventilator 25.00 11/14/18 03:58 86 16 98 25 11/14/18 03:00 97 21 110/71 (84) 95 Mechanical Ventilator 25.00 11/14/18 02:40 99 17 95 25 11/14/18 02:00 89 15 111/61 (78) 98 Mechanical Ventilator 25.00 11/14/18 01:00 92 11/14/18 01:00 92 17 113/63 (80) 97 Mechanical Ventilator 25.00 11/14/18 00:26 98.4 11/14/18 00:15 101 17 96 25 11/14/18 00:00 Mechanical Ventilator 30 11/14/18 00:00 97 25 122/66 (84) 97 Mechanical Ventilator 25.00 11/13/18 23:00 88 20 110/71 (84) 98 Mechanical Ventilator 25.00 11/13/18 22:00 93 25 117/72 (87) 96 Mechanical Ventilator 25.00 11/13/18 21:45 92 17 95 25 11/13/18 21:00 86 15 107/60 (76) 95 Mechanical Ventilator 25.00 11/13/18 20:22 96 16 94 25 11/13/18 20:00 Mechanical Ventilator 30 11/13/18 20:00 101 35 123/69 (87) 93 Mechanical Ventilator 25.00 11/13/18 19:45 97.6 11/13/18 19:00 97 16 106/58 (74) 97 Mechanical Ventilator 25.00 11/13/18 19:00 97 11/13/18 18:35 98 16 99 25 11/13/18 18:00 99 20 107/61 (76) 99 Mechanical Ventilator 30.00 I & O 11/14/18 07:00 Intake Total 1840 ml Output Total 3920 ml Balance -2080 ml Capillary Refill : Greater Than 3 SecondsLess Than 3 Seconds General Appearance: Chronically ill, Thin, Other (intubated ) HEENT: Normal ENT Inspection Neck: Normal Inspection, Non Tender Respiratory: Lungs Clear Cardiovascular: Regular Rate, Rhythm Gastrointestinal: soft, other (inc clean/dry/intact) Extremity: Normal Inspection, Pedal Edema Neurologic/Psychiatric: No Alert (intubated and sedated) Skin: Pallor Lymphatic: No Adenopathy Results Lab Laboratory Tests 11/13/18 19:44: Glucometer 151H 11/13/18 23:57: Glucometer 194H 11/14/18 03:00: White Blood Count 10.0, Red Blood Count 3.03L, Hemoglobin 9.0L, Hematocrit 28L, Mean Corpuscular Volume 92, Mean Corpuscular Hemoglobin 30, Mean Corpuscular Hemoglobin Concent 32, Red Cell Distribution Width 16.2H, Platelet Count 288, Mean Platelet Volume 10.1, Neutrophils (%) (Auto) 88H, Lymphocytes (%) (Auto) 7L , Monocytes (%) (Auto) 5, Eosinophils (%) (Auto) 1, Basophils (%) (Auto) 0, Neutrophils # (Auto) 8.7H, Lymphocytes # (Auto) 0.7L, Monocytes # (Auto) 0.5, Eosinophils # (Auto) 0.1, Basophils # (Auto) 0.0, Sodium Level 141, Potassium Level 3.1L, Chloride Level 107, Carbon Dioxide Level 23, Anion Gap 11, Blood Urea Nitrogen 9, Creatinine 0.53L, Estimat Glomerular Filtration Rate > 60, BUN/ Creatinine Ratio 17, Glucose Level 144H, Calcium Level 7.3L, Phosphorus Level 1.7L, Magnesium Level 1.5L 11/14/18 05:25: Blood Gas Puncture Site L BRACH, Blood Gas Patient Temperature 98.1, Arterial Blood pH 7.54H, Arterial Blood Partial Pressure CO2 31L, Arterial Blood Partial Pressure O2 61L, Arterial Blood HCO3 26, Arterial Blood Total CO2 27.2, Arterial Blood Oxygen Saturation 95, Arterial Blood Base Excess 3.5H, Jackson Test YES-POS, Blood Gas Ventilator Setting YES, Blood Gas Inspired Oxygen 25% 11/14/18 07:40: Glucometer 171H, Vancomycin Level Trough 8.5L 11/14/18 17:19: Glucometer 210H Microbiology 11/12/18 Gram Stain - Final, Complete 11/12/18 Sputum Culture - Final, Complete Usual upper respiratory mandy 11/13/18 Urine Culture - Final, Complete NO GROWTH Assessment/Plan Assessment/Plan Assessment/Plan hematemesis melena upper gi bleed pyloric ulcers severe anemia Status post exploratory laparotomy pyloromyotomy controlled gastroduodenal artery closure of perforated pyloric ulcer ventilator dependent respiratory failure patient continue on Protonix 40 mg twice a day. Patient discussed with Dr. Lozada which feels patient would benefit from tracheostomy. I discussed tracheostomy Risk and benefits with the who understands and wishes to proceed. will also get landmark eval. NPO After midnight. Clinical Quality Measures DVT/VTE Risk/Contraindication: Risk Factor Score Per Nursin RFS Level Per Nursing on Admit: 4+=Very High Contraindications-Pharm: Other *list below* Other: gi bleed ROBERT MARSH DO Nov 14, 2018 17:55
[2018-11-14] MEDS: ATENOLOL 25 MG (TENORMIN) TAB PO SCH (19:26)
[2018-11-14] MEDS: VANCOMYCIN INJECTION 1,000 MG in NS (IVPB) 250 ML IV SCH (21:02)
[2018-11-14] MEDS: DEXMEDETOMIDINE INJECTION 200 MCG in NS (IVPB) 50 ML IV SCH (21:03)
[2018-11-14] MEDS ORDERED: NS IV 500 ML 500 ML ONE (21:51)
[2018-11-14] MEDS ORDERED: NS IV 500 ML 500 ML IV SCH (22:15)
[2018-11-14] MEDS ORDERED: NS IV 1000 ML 1,000 ML IV SCH (23:30)
[2018-11-15] VITALS (36 sets, daily range): BP systolic 61–142; BP diastolic 34–90
[2018-11-15] MEDS ORDERED: NOREPINEPHRINE 4 MG/4 ML (LEVOPHED) AMP IV ONE (00:44)
[2018-11-15] MEDS ORDERED: NS (IVPB) 250 ML ONE (00:44)
[2018-11-15] MEDS: NOREPINEPHRINE 4 MG in NS (IVPB) 250 ML IV SCH ×3 (00:56→21:33)
[2018-11-15] MEDS: inSUlin ASPART (NovoLOG) 1 UNIT/0.01 ML (CHARGE PER UNIT) SC SCH ×4 (01:08→19:35)
[2018-11-15 03:42] LABS: BASOPHILS % (AUTO) 0 % (0-10); EOSINOPHILS # (AUTO) 0.1 10^3/uL (0.0-0.3); EOSINOPHILS % (AUTO) 1 % (0-10); HEMATOCRIT 31 % (35-52); HEMOGLOBIN 9.5 G/DL (11.5-16.0); LYMPHOCYTES # (AUTO) 0.8 X 10^3 (1.0-4.0); LYMPHOCYTES % (AUTO) 6 % (12-44); MEAN CORPUSCULAR HEMOGLOBIN 29 PG (25-34); MEAN CORPUSCULAR HGB CONC 31 G/DL (32-36); MEAN CORPUSCULAR VOLUME 94 FL (80-99); MEAN PLATELET VOLUME 9.8 FL (7.4-10.4); MONOCYTES # (AUTO) 0.6 X 10^3 (0.0-1.0); MONOCYTES % (AUTO) 5 % (0-12); NEUTROPHILS # (AUTO) 10.9 X 10^3 (1.8-7.8); NEUTROPHILS % (AUTO) 89 % (42-75); PLATELET COUNT 411 10^3/uL (130-400); RED CELL DISTRIBUTION WIDTH 16.7 % (10.0-14.5); WHITE BLOOD COUNT 12.3 10^3/uL (4.3-11.0)
[2018-11-15] MEDS: fentaNYL INJECTION 100 MCG/2 ML AMP IVP PRN ×2 (03:52→21:10)
[2018-11-15 04:24] LABS: BUN/CREATININE RATIO 20; CALCIUM 7.4 MG/DL (8.5-10.1); CARBON DIOXIDE 16 MMOL/L (21-32); CHLORIDE 109 MMOL/L (98-107); CREATININE SERUM 0.65 MG/DL (0.60-1.30); GFR ESTIMATED > 60; GLUCOSE 260 MG/DL (70-105); MAGNESIUM 1.7 MG/DL (1.8-2.4); PHOSPHORUS 2.5 MG/DL (2.3-4.7); POTASSIUM 4.2 MMOL/L (3.6-5.0); SODIUM 141 MMOL/L (135-145)
[2018-11-15 04:42] LABS: ABG BASE EXCESS -5.7 MMOL/L (-2.5-2.5); ABG OXYGEN SATURATION 91 % (94-100); ABG PCO2 29 MMHG (35-45); ABG PH 7.41 (7.37-7.43); ABG PO2 58 MMHG (79-93); ABG TCO2 19.1 MMOL/L (21.0-31.0)
[2018-11-15 04:45] LABS: INSPIRED O2 25% FI02; PATIENT TEMP 97.8; VENTILATOR YES
[2018-11-15] MEDS: POTASSIUM CL 10MEQ/50ML IVPB 50 ML IV SCH (04:50)
[2018-11-15] MEDS: KCL 20 MEQ TAB (K-DUR) PO SCH (04:51)
[2018-11-15] MEDS: MAGNESIUM 1 GM/100 ML IVPB 100 ML IV SCH ×3 (04:51→06:37)
[2018-11-15] MEDS: SUCRALFATE 1 GM (CARAFATE) TAB PO SCH ×4 (05:10→21:31)
[2018-11-15] MEDS: MULTIVIT W/MINERALS TAB (THERAGRAN M) PO SCH (05:10)
[2018-11-15] MEDS: PIPERACILLIN/TAZOBACTAM (BULK) 4.5 GM in NS (IVPB) 100 ML IV SCH ×3 (05:29→23:31)
--- NOTE | 2018-11-15 06:26 | Pulmonary Progress Note ---
Subjective Time Seen by a Provider: 06:00 Subjective/Events-last exam Plan is for tracheostomy today . Sepsis Event Evaluation Height, Weight, BMI Height: 5'2.00" Weight: 192lbs. 5.0oz. [id number]; 22.3 BMI Method:Actual Exam Exam Vital Signs Date Time Temp Pulse Resp B/P (MAP) Pulse Ox O2 Delivery O2 Flow Rate FiO2 11/15/18 06:00 71 16 107/79 (88) 99 Mechanical Ventilator 25.00 11/15/18 05:00 75 13 99/62 (74) 97 Mechanical Ventilator 25.00 11/15/18 04:42 95 23 96 25 11/15/18 04:00 85 20 105/77 (86) 93 Mechanical Ventilator 25.00 11/15/18 04:00 95 Mechanical Ventilator 25 11/15/18 03:00 72 18 109/49 (69) 98 Mechanical Ventilator 25.00 11/15/18 02:33 60 16 98 25 11/15/18 02:00 59 15 93/61 (72) 98 Mechanical Ventilator 25.00 11/15/18 01:00 80 18 97/59 (72) 100 Mechanical Ventilator 25.00 11/15/18 01:00 80 11/15/18 00:46 92 21 98 25 11/15/18 00:37 78 18 98/54 (69) 100 Mechanical Ventilator 25.00 11/15/18 00:00 86 18 113/55 (74) 100 Mechanical Ventilator 25.00 11/15/18 00:00 94 Mechanical Ventilator 25 11/14/18 23:00 67 16 106/67 (80) 99 Mechanical Ventilator 25.00 11/14/18 22:57 71 16 100 25 11/14/18 22:00 75 16 64/32 (43) 99 Mechanical Ventilator 25.00 11/14/18 21:00 101 15 106/53 (70) 100 Mechanical Ventilator 25.00 11/14/18 20:43 95 16 100 25 11/14/18 20:02 96 16 91/46 (61) 100 Mechanical Ventilator 25.00 11/14/18 20:00 93 Mechanical Ventilator 25 11/14/18 19:24 98.1 107 16 99/65 (76) 99 Mechanical Ventilator 25.00 11/14/18 19:00 104 11/14/18 19:00 104 17 82/53 (63) 100 Mechanical Ventilator 25.00 11/14/18 18:45 104 19 99 25 11/14/18 18:00 107 19 91/60 (70) 98 Mechanical Ventilator 25.00 11/14/18 17:00 101 22 154/73 (100) 95 Mechanical Ventilator 25.00 11/14/18 16:54 115 19 100 30 11/14/18 16:00 114 32 87/54 (65) 100 Mechanical Ventilator 25.00 11/14/18 16:00 95 Mechanical Ventilator 25 11/14/18 15:00 115 51 91/56 (68) 100 Mechanical Ventilator 25.00 11/14/18 14:00 124 49 88/53 (65) 96 Mechanical Ventilator 25.00 11/14/18 13:51 123 23 96 30 11/14/18 13:00 101 28 97/54 (68) 99 Mechanical Ventilator 25.00 11/14/18 13:00 104 11/14/18 12:26 101 33 99 25 11/14/18 12:00 95 Mechanical Ventilator 25 11/14/18 12:00 97.2 11/14/18 12:00 99 14 108/39 (62) 97 Mechanical Ventilator 25.00 11/14/18 11:00 106 13 103/57 (72) 98 Mechanical Ventilator 25.00 11/14/18 10:45 96 28 98 25 11/14/18 10:00 101 15 97/58 (71) 99 Mechanical Ventilator 25.00 11/14/18 09:00 103 35 107/55 (72) 98 Mechanical Ventilator 25.00 11/14/18 08:36 92 19 99 25 11/14/18 08:04 95 Mechanical Ventilator 25 11/14/18 08:00 97.8 103 18 105/53 (70) 95 Mechanical Ventilator 25.00 11/14/18 07:00 107 21 118/65 (82) 94 Mechanical Ventilator 25.00 11/14/18 07:00 101 11/14/18 06:39 102 35 97 I & O 11/15/18 07:00 Intake Total 1500 ml Output Total 1185 ml Balance 315 ml Height & Weight Height: 5'2.00" Weight: 192lbs. 5.0oz. 87.754474xo; 22.3 BMI Method:Actual General Appearance: Chronically ill, Thin, Other (intubated ) HEENT: Normal ENT Inspection Neck: Normal Inspection, Non Tender Respiratory: Lungs Clear Cardiovascular: Regular Rate, Rhythm Capillary Refill: Less Than 3 Seconds Gastrointestinal: soft, other (inc clean/dry/intact) Extremity: Normal Inspection, Pedal Edema Neurologic/Psychiatric: No Alert (intubated and sedated) Skin: Pallor Lymphatic: No Adenopathy Results Lab Laboratory Tests 11/14/18 03:00 11/15/18 03:30 Assessment/Plan Assessment/Plan Acute respiratory failure - Plan for tracheostomy today -Continue ventilator care -Will start weaning vent. failed weaning again yesterday -Will consult [facility] for possible transfer this week after tracheostomy. - TF -Labs and CXR reviewed -D/C Propofol, Fentanyl gtt, Precedex and await pt to wake up. leukocytosis and hypotension -Repan culture -Zosyn and Vanco Acute severe GIB - with PUD - s/p ex lap with ligation off gastroduodenal artery and repair of pyloric perforation. - total of 16units of PRBC, 6units of FFP, and 2 units of Platelets this admission -S/p EGD x 3 -Surgery following hypomag -replace Cellulitis -continue abx Atelectasis -Monitor Anasarca - multifactorial Protein dilan malnutrition -check albumin and prealbumin -TF Tachycardia -Monitor Anemia -Monitor Metabolic lactic acidosis- hypomag, -replace Left sided rib fractures s/p fall 2 mo ago -IS -Fall risk pleural effusion -Monitor ARJUN MEADE DO Nov 15, 2018 06:26
[2018-11-15] MEDS ORDERED: LACTATED RINGERS 1,000 ML IV SCH (06:30)
[2018-11-15] MEDS: PANTOPRAZOLE 40 MG (PROTONIX) VIAL IV SCH ×2 (08:59→21:31)
[2018-11-15] MEDS: VANCOMYCIN INJECTION 1,000 MG in NS (IVPB) 250 ML IV SCH (08:59)
--- NOTE | 2018-11-15 09:08 | Diagnostic Imaging Report ---
INDICATION: GI bleed. FINDINGS: The ET tube tip is in the lower trachea. There are post operative changes to the cervical spine. A gastric catheter is in the stomach. Central congestion, perihilar infiltrates or edema, and bilateral pleural effusions with basilar atelectasis are present. The central congestion and perihilar interstitial opacities have improved. The left subclavian catheter tip is near the junction of the innominates with the tip right of midline. No pneumothorax. IMPRESSION: Mild improvements in perihilar opacity. Stable support apparatus. No other significant change. Dictated by: Dictated on workstation # [id number]
--- NOTE | 2018-11-15 09:42 | NUR ---
CM/SS spoke with and sent information to [facility] for referral. Nikolai with [facility] will be out to assess.
--- NOTE | 2018-11-15 10:44 | Cardiology Progress Note ---
Cardiology SOAP Progress Note Subjective: Intubated/ventilated. In sinus rhythm with controlled ventricular rate. Objective: I&O/Vital Signs 11/15/18 11/15/18 11/15/18 11/15/18 02:00 02:33 03:00 04:00 Pulse 59 60 72 Resp 15 16 18 B/P (MAP) 93/61 (72) 109/49 (69) Pulse Ox 98 98 98 95 O2 Delivery Mechanical Ventilator Mechanical Ventilator Mechanical Ventilator O2 Flow Rate 25.00 25.00 FiO2 25 25 11/15/18 11/15/18 11/15/18 11/15/18 04:00 04:42 05:00 06:00 Pulse 85 95 75 71 Resp 20 23 13 16 B/P (MAP) 105/77 (86) 99/62 (74) 107/79 (88) Pulse Ox 93 96 97 99 O2 Delivery Mechanical Ventilator Mechanical Ventilator Mechanical Ventilator O2 Flow Rate 25.00 25.00 25.00 FiO2 25 11/15/18 11/15/18 11/15/18 11/15/18 06:19 07:00 07:00 08:00 Temp 97.4 Pulse 71 65 71 Resp 16 7 B/P (MAP) 142/90 (107) Pulse Ox 99 99 O2 Delivery Mechanical Ventilator O2 Flow Rate 25.00 FiO2 25 11/15/18 11/15/18 11/15/18 11/15/18 08:00 08:00 08:12 09:00 Pulse 57 60 55 Resp 32 16 31 B/P (MAP) 105/62 (76) 70/45 (53) Pulse Ox 100 97 100 100 O2 Delivery Mechanical Ventilator Mechanical Ventilator Mechanical Ventilator O2 Flow Rate 25.00 25.00 FiO2 25 25 11/15/18 11/15/18 11/15/18 11/15/18 10:00 10:35 11:00 11:31 Temp 97.4 Pulse 60 66 59 Resp 17 9 B/P (MAP) 73/45 (54) 101/54 (70) Pulse Ox 100 95 99 O2 Delivery Mechanical Ventilator Mechanical Ventilator O2 Flow Rate 25.00 25.00 FiO2 25 11/15/18 11/15/18 12:24 12:44 Pulse 73 71 Resp 18 Pulse Ox 96 FiO2 25 11/15/18 00:00 Intake Total 2570 ml Output Total 765 ml Balance 1805 ml Weight (Pounds): 192 Weight (Ounces): 5.0 Weight (Calculated Kilograms): 87.393873 Constitutional: appears stated age; No AAO x 3, No apparent distress, No PERRL ; well-developed, well-nourished, other (intubated/ventilated.) Respiratory: No accessory muscle use, No respiratory distress, No chest tender , No chest expansion is symmetric; chest is bilaterally symmetric; No lungs clear to percussion; lungs clear to auscultation; No crackles, No rhonchi, No rales, No stridor, No wheezing, No pleural rub; other (intubated and on mec vent ; good bilat air entry) Cardiovascular: regular rate-rhythm; No irregularly irregular, No extra beats, No parasternal heave is noted, No JVD, No edema, No bradycardia, No tachycardia , No point of maximal impulse, No cardiac thrills are palpable; S1 and S2; No gallop/S3, No gallop/S4, No diastolic murmur, No systolic murmur, No friction rub, No click, No other Gastrointestional: No tender; soft; No round, No distended, No pulsatile mass, No organomegaly, No guarding, No rebound, No tenderness, No hernia, No mass; audible bowel sounds; No abnormal bowel sounds, No abdominal bruits, No spleenomegaly, No other Extremities: No clubbing, No cyanosis; significant edema (involving upper and lower limbs) Neurologic/Psychiatric: other (On mech vent; unable to cooperate with any neuro exam) Skin: No diaphoresis; pallor; No rash on exposed areas, No ulcerations on exposed areas Results/Procedures: Labs Laboratory Tests 11/14/18 17:19: Glucometer 210H 11/15/18 01:03: Glucometer 301H 11/15/18 03:30: White Blood Count 12.3H, Red Blood Count 3.23L, Hemoglobin 9.5L, Hematocrit 31L , Mean Corpuscular Volume 94, Mean Corpuscular Hemoglobin 29, Mean Corpuscular Hemoglobin Concent 31L, Red Cell Distribution Width 16.7H, Platelet Count 411H, Mean Platelet Volume 9.8, Neutrophils (%) (Auto) 89H, Lymphocytes (%) (Auto) 6L , Monocytes (%) (Auto) 5, Eosinophils (%) (Auto) 1, Basophils (%) (Auto) 0, Neutrophils # (Auto) 10.9H, Lymphocytes # (Auto) 0.8L, Monocytes # (Auto) 0.6, Eosinophils # (Auto) 0.1, Basophils # (Auto) 0.0, Sodium Level 141, Potassium Level 4.2, Chloride Level 109H, Carbon Dioxide Level 16L, Anion Gap 16H, Blood Urea Nitrogen 13, Creatinine 0.65, Estimat Glomerular Filtration Rate > 60, BUN/ Creatinine Ratio 20, Glucose Level 260H, Calcium Level 7.4L, Phosphorus Level 2.5, Magnesium Level 1.7L 11/15/18 04:30: Blood Gas Puncture Site R ULNAR, Blood Gas Patient Temperature 97.8, Arterial Blood pH 7.41, Arterial Blood Partial Pressure CO2 29L, Arterial Blood Partial Pressure O2 58L, Arterial Blood HCO3 18L, Arterial Blood Total CO2 19.1L, Arterial Blood Oxygen Saturation 91L, Arterial Blood Base Excess -5.7L, Jackson Test NA, Blood Gas Ventilator Setting YES, Blood Gas Inspired Oxygen 25% FI02 11/15/18 11:58: Glucometer 177H Microbiology 11/12/18 Gram Stain - Final, Complete 11/12/18 Sputum Culture - Final, Complete Usual upper respiratory mandy 11/13/18 Urine Culture - Final, Complete NO GROWTH A/P: Assessment/Dx: Severe GI bleeding, anemia, Severe respiratory failure Plan: Severe GI bleeding, transfusion with PRBCs, status post upper and lower GI endoscopy. s/p exploratory laparotomy, pyloromyotomy, ligation of gastroduodenal artery, repair of perforated pyloric ulcer. Transient shock due to blood loss Acute resp failure. Currently with pulmonary infiltrates: ARDS vs pneumonia vs atelectasis Echocardiogram done 11/04/2018 shows normal LV function with mild to moderate LVH , moderate to severe pulmonary hypertension. Collapsed IVC suggesting significant volume depletion. Sinus tachycardia, resolved. Hypotensive, on low dose levophed. Thank you for your consultation. Please call me if you have any questions. Belinda Thrasher MD, FACP, FACC, FSCAI, FHRS, CCDS Interventional Cardiology Cardiac Electrophysiology Vascular Medicine and Endovascular Interventions Yan THRASHER MD Nov 15, 2018 10:44
[2018-11-15] MEDS: POTASSIUM CHLORIDE IV SCH ×2 (12:50)
[2018-11-15] MEDS: LACTATED RINGERS IV SCH ×2 (12:50)
[2018-11-15] MEDS ORDERED: LACTATED RINGERS 1,000 ML IV PRN (13:19)
--- NOTE | 2018-11-15 13:51 | Progress Note ---
Subjective Date Seen by a Provider: Nov 15, 2018 Time Seen by a Provider: 11:51 Subjective/Events-last exam Back on some pressors after started bck on Precedex. Hgb stable. Urine output slightly low. No family at bedside. Planning for tracheostomy today. Objective Exam Vital Signs Date Time Temp Pulse Resp B/P (MAP) Pulse Ox O2 Delivery O2 Flow Rate FiO2 11/15/18 13:00 67 9 100 Mechanical Ventilator 25.00 11/15/18 12:44 71 11/15/18 12:24 73 18 96 25 11/15/18 12:00 68 15 98/75 (83) 97 Mechanical Ventilator 25.00 11/15/18 11:31 97.4 11/15/18 11:00 59 9 101/54 (70) 99 Mechanical Ventilator 25.00 11/15/18 10:35 66 17 95 25 11/15/18 10:00 60 73/45 (54) 100 Mechanical Ventilator 25.00 11/15/18 09:00 55 31 70/45 (53) 100 Mechanical Ventilator 25.00 11/15/18 08:12 60 16 100 25 11/15/18 08:00 97 Mechanical Ventilator 25 11/15/18 08:00 57 32 105/62 (76) 100 Mechanical Ventilator 25.00 11/15/18 08:00 97.4 11/15/18 07:00 71 7 142/90 (107) 99 Mechanical Ventilator 25.00 11/15/18 07:00 65 11/15/18 06:19 71 16 99 25 11/15/18 06:00 71 16 107/79 (88) 99 Mechanical Ventilator 25.00 11/15/18 05:00 75 13 99/62 (74) 97 Mechanical Ventilator 25.00 11/15/18 04:42 95 23 96 25 11/15/18 04:00 85 20 105/77 (86) 93 Mechanical Ventilator 25.00 11/15/18 04:00 95 Mechanical Ventilator 25 11/15/18 03:00 72 18 109/49 (69) 98 Mechanical Ventilator 25.00 11/15/18 02:33 60 16 98 25 11/15/18 02:00 59 15 93/61 (72) 98 Mechanical Ventilator 25.00 11/15/18 01:00 80 18 97/59 (72) 100 Mechanical Ventilator 25.00 11/15/18 01:00 80 11/15/18 00:46 92 21 98 25 11/15/18 00:37 78 18 98/54 (69) 100 Mechanical Ventilator 25.00 11/15/18 00:00 86 18 113/55 (74) 100 Mechanical Ventilator 25.00 11/15/18 00:00 94 Mechanical Ventilator 25 11/14/18 23:00 67 16 106/67 (80) 99 Mechanical Ventilator 25.00 11/14/18 22:57 71 16 100 25 11/14/18 22:00 75 16 64/32 (43) 99 Mechanical Ventilator 25.00 11/14/18 21:00 101 15 106/53 (70) 100 Mechanical Ventilator 25.00 11/14/18 20:43 95 16 100 25 11/14/18 20:02 96 16 91/46 (61) 100 Mechanical Ventilator 25.00 11/14/18 20:00 93 Mechanical Ventilator 25 11/14/18 19:24 98.1 107 16 99/65 (76) 99 Mechanical Ventilator 25.00 11/14/18 19:00 104 11/14/18 19:00 104 17 82/53 (63) 100 Mechanical Ventilator 25.00 11/14/18 18:45 104 19 99 25 11/14/18 18:00 107 19 91/60 (70) 98 Mechanical Ventilator 25.00 11/14/18 17:00 101 22 154/73 (100) 95 Mechanical Ventilator 25.00 11/14/18 16:54 115 19 100 30 11/14/18 16:00 114 32 87/54 (65) 100 Mechanical Ventilator 25.00 11/14/18 16:00 95 Mechanical Ventilator 25 11/14/18 15:00 115 51 91/56 (68) 100 Mechanical Ventilator 25.00 11/14/18 14:00 124 49 88/53 (65) 96 Mechanical Ventilator 25.00 11/14/18 13:51 123 23 96 30 I & O 11/15/18 07:00 Intake Total 3720 ml Output Total 1185 ml Balance 2535 ml Capillary Refill : Greater Than 3 SecondsLess Than 3 Seconds General Appearance: Chronically ill, Thin, Other (intubated ) HEENT: Normal ENT Inspection Neck: Normal Inspection, Non Tender Respiratory: Lungs Clear Cardiovascular: Regular Rate, Rhythm Gastrointestinal: soft, other (inc clean/dry/intact hugo drain serous) Extremity: Normal Inspection, Pedal Edema Neurologic/Psychiatric: No Alert (intubated and sedated) Skin: Pallor Lymphatic: No Adenopathy Results Lab Laboratory Tests 11/14/18 17:19: Glucometer 210H 11/15/18 01:03: Glucometer 301H 11/15/18 03:30: White Blood Count 12.3H, Red Blood Count 3.23L, Hemoglobin 9.5L, Hematocrit 31L , Mean Corpuscular Volume 94, Mean Corpuscular Hemoglobin 29, Mean Corpuscular Hemoglobin Concent 31L, Red Cell Distribution Width 16.7H, Platelet Count 411H, Mean Platelet Volume 9.8, Neutrophils (%) (Auto) 89H, Lymphocytes (%) (Auto) 6L , Monocytes (%) (Auto) 5, Eosinophils (%) (Auto) 1, Basophils (%) (Auto) 0, Neutrophils # (Auto) 10.9H, Lymphocytes # (Auto) 0.8L, Monocytes # (Auto) 0.6, Eosinophils # (Auto) 0.1, Basophils # (Auto) 0.0, Sodium Level 141, Potassium Level 4.2, Chloride Level 109H, Carbon Dioxide Level 16L, Anion Gap 16H, Blood Urea Nitrogen 13, Creatinine 0.65, Estimat Glomerular Filtration Rate > 60, BUN/ Creatinine Ratio 20, Glucose Level 260H, Calcium Level 7.4L, Phosphorus Level 2.5, Magnesium Level 1.7L 11/15/18 04:30: Blood Gas Puncture Site R ULNAR, Blood Gas Patient Temperature 97.8, Arterial Blood pH 7.41, Arterial Blood Partial Pressure CO2 29L, Arterial Blood Partial Pressure O2 58L, Arterial Blood HCO3 18L, Arterial Blood Total CO2 19.1L, Arterial Blood Oxygen Saturation 91L, Arterial Blood Base Excess -5.7L, Jackson Test NA, Blood Gas Ventilator Setting YES, Blood Gas Inspired Oxygen 25% FI02 11/15/18 11:58: Glucometer 177H Microbiology 11/12/18 Gram Stain - Final, Complete 11/12/18 Sputum Culture - Final, Complete Usual upper respiratory mandy 11/13/18 Urine Culture - Final, Complete NO GROWTH Assessment/Plan Assessment/Plan Assessment/Plan hematemesis melena upper gi bleed pyloric ulcers severe anemia Status post exploratory laparotomy pyloromyotomy controlled gastroduodenal artery closure of perforated pyloric ulcer ventilator dependent respiratory failure patient continue on Protonix 40 mg twice a day. Patient discussed with Dr. Lozada which feels patient would benefit from tracheostomy. I discussed tracheostomy Risk and benefits yesterday with the who understands and wishes to proceed. will also get landmark eval. NPO Plan tracheostomy today. Clinical Quality Measures DVT/VTE Risk/Contraindication: Risk Factor Score Per Nursin RFS Level Per Nursing on Admit: 4+=Very High Contraindications-Pharm: Other *list below* Other: gi bleed ROBERT MARSH DO Nov 15, 2018 13:51
[2018-11-15] MEDS ORDERED: MIDAZOLAM 2 MG/2 ML (VERSED) VIAL ONE (14:22)
[2018-11-15] MEDS ORDERED: SEVOFLURANE (ULTANE) 15 ML INHAL SOLN ONE ×3 (14:23→17:04)
[2018-11-15] MEDS ORDERED: ROCURONIUM 10 MG/ML 5 ML SYRINGE IV ONE (14:23)
--- NOTE | 2018-11-15 17:14 | Progress Note-Post Operative ---
Post-Operative Progess Note Surgeon (s)/Performance Management Consultant (s) Surgeon ROBERT MARSH DO Performance Management Consultant: Dr. Acuña Pre-Operative Diagnosis ventilator dependent respiratory failure Post-Operative Diagnosis same Procedure & Operative Findings Date of Procedure 11/15/18 Procedure Performed/Findings tracheostomy Anesthesia Type gen Estimated Blood Loss Estimated blood loss (mL): min Specimens/Packing Specimens Removed na ROBERT MARSH DO Nov 15, 2018 17:14
--- NOTE | 2018-11-15 17:38 | NUR ---
Pt returned from OR post Tracheotomy at this time. VSS. Will continue to monitor.
[2018-11-15] MEDS ORDERED: TROUGH ORDER-PHARMACY XX NR (19:00)
[2018-11-15] MEDS: ATENOLOL 25 MG (TENORMIN) TAB PO SCH (21:11)
[2018-11-15 21:28] LABS: BILIRUBIN,URINE NEGATIVE (NEGATIVE); CLARITY,URINE VERY CLOUDY; COLOR,URINE YELLOW; GLUCOSE, URINE (UA) NEGATIVE (NEGATIVE); KETONES,URINE 3+ (NEGATIVE); LEUKOCYTE ESTERASE ,URINE 2+ (NEGATIVE); NITRITE,URINE NEGATIVE (NEGATIVE); PH,URINE 5 (5-9); PROTEIN,URINE 2+ (NEGATIVE); UROBILINOGEN,URINE NORMAL (NORMAL)
[2018-11-15] MEDS: VANCOMYCIN INJECTION 750 MG in NS (IVPB) 250 ML IV SCH (21:31)
[2018-11-15 21:37] LABS: AMORPHOUS SEDIMENT,UR MOD AMOR URATES /LPF; BACTERIA,URINE FEW /HPF
--- NOTE | 2018-11-15 21:39 | NUR ---
10 ML OF URINE OUTPUT SINCE 7PM, E-ICU NOTIFIED OF LOW UOP AND INCREASE IN LEVOPHED NEEDS FOR WORSENING HYPOTENSION.
--- NOTE | 2018-11-15 21:45 | NUR ---
NEW ORDERS RECEIVED FROM E-ICU, SEE ORDER HISTORY.
[2018-11-15] MEDS ORDERED: ALBUMIN 25% 25 GM/100 ML 200 ML IV ONE (21:55)
[2018-11-15] MEDS ORDERED: ALBUMIN 5% 12.5 GM/250 ML 500 ML IV ONE ×2 (21:55→22:00)
[2018-11-15] MEDS: ALBUMIN 25% 25 GM/100 ML 200 ML IV SCH (22:00)
[2018-11-15 23:21] LABS: HEMOGLOBIN 8.6 G/DL (11.5-16.0)
[2018-11-15 23:39] LABS: BUN/CREATININE RATIO 18; CALCIUM 8.1 MG/DL (8.5-10.1); CARBON DIOXIDE 15 MMOL/L (21-32); CHLORIDE 109 MMOL/L (98-107); CREATININE SERUM 0.62 MG/DL (0.60-1.30); GFR ESTIMATED > 60; GLUCOSE 186 MG/DL (70-105); POTASSIUM 4.5 MMOL/L (3.6-5.0); SODIUM 141 MMOL/L (135-145)
[2018-11-16] VITALS (21 sets, daily range): BP systolic 95–153; BP diastolic 46–101
[2018-11-16] MEDS: inSUlin ASPART (NovoLOG) 1 UNIT/0.01 ML (CHARGE PER UNIT) SC SCH ×3 (01:05→11:41)
[2018-11-16] MEDS: fentaNYL INJECTION 100 MCG/2 ML AMP IVP PRN ×2 (01:07→04:54)
[2018-11-16] MEDS: LACTATED RINGERS IV SCH ×2 (02:05)
[2018-11-16] MEDS: POTASSIUM CHLORIDE IV SCH ×2 (02:05)
[2018-11-16] MEDS: NOREPINEPHRINE 4 MG in NS (IVPB) 250 ML IV SCH (02:05)
--- NOTE | 2018-11-16 02:17 | OPERATIVE REPORT ---
DATE OF SERVICE: 11/15/2018 PREOPERATIVE DIAGNOSIS: Ventilator dependent respiratory failure. POSTOPERATIVE DIAGNOSIS: Ventilator dependent respiratory failure. PROCEDURE: Tracheostomy. SURGEON: Robert Talamantes DO. FACILITY SERVICE ASSOCIATE: Dr. Acuña, assisted in retraction, dissection and closure. ANESTHESIA: General. ESTIMATED BLOOD LOSS: Minimal. COMPLICATIONS: None. INDICATIONS: The patient is a 78-year-old female who had acute gastrointestinal bleed, exploratory laparotomy. She has been on the ventilator and unable to be weaned at this time. It is recommended that a tracheostomy will be placed. Risks and benefits were discussed with the patient's family who understood risks and benefits and wished to proceed with the procedure. Consent was signed in the chart. DESCRIPTION OF PROCEDURE: The patient was taken to the operating suite. She was prepped and draped in sterile fashion. Surgical pause was performed. Incision was made just above the sternal notch. Dissection was taken down to the trachea. A U-shaped window was created at the third cartilage ring, elevated and the endotracheal tube was then slid back where the #8 Shiley tracheostomy tube was able to be inserted. This was then converted over to the circuit after the inner cannula was placed. The balloon was insufflated and good tidal volumes were returned. The #8 Shiley was then secured in four places to the skin and the collar tie was placed around the neck. A bronchoscope was inserted through the #8 Shiley and confirmed proper placement. The patient tolerated the procedure well without any complications. The patient was taken back to the intensive care unit. Job ID: [id number] DocumentID: [id number] Dictated Date: 11/15/2018 17:20:31 Switch Box Installer Date: 11/16/2018 02:17:16 Dictated By: ROBERT TALAMANTES DO
[2018-11-16] MEDS: POTASSIUM CL 10MEQ/50ML IVPB 50 ML IV SCH (03:16)
[2018-11-16] MEDS: KCL 20 MEQ TAB (K-DUR) PO SCH (03:17)
[2018-11-16] MEDS: MAGNESIUM 1 GM/100 ML IVPB 100 ML IV SCH (03:17)
[2018-11-16] MEDS: MULTIVIT W/MINERALS TAB (THERAGRAN M) PO SCH (03:17)
[2018-11-16 03:44] LABS: BASOPHILS % (AUTO) 0 % (0-10); EOSINOPHILS # (AUTO) 0.1 10^3/uL (0.0-0.3); EOSINOPHILS % (AUTO) 1 % (0-10); HEMATOCRIT 26 % (35-52); HEMOGLOBIN 8.3 G/DL (11.5-16.0); LYMPHOCYTES # (AUTO) 0.7 X 10^3 (1.0-4.0); LYMPHOCYTES % (AUTO) 5 % (12-44); MEAN CORPUSCULAR HEMOGLOBIN 30 PG (25-34); MEAN CORPUSCULAR HGB CONC 32 G/DL (32-36); MEAN CORPUSCULAR VOLUME 94 FL (80-99); MEAN PLATELET VOLUME 10.1 FL (7.4-10.4); MONOCYTES # (AUTO) 0.6 X 10^3 (0.0-1.0); MONOCYTES % (AUTO) 4 % (0-12); NEUTROPHILS # (AUTO) 12.9 X 10^3 (1.8-7.8); NEUTROPHILS % (AUTO) 90 % (42-75); PLATELET COUNT 361 10^3/uL (130-400); RED CELL DISTRIBUTION WIDTH 16.3 % (10.0-14.5); WHITE BLOOD COUNT 14.4 10^3/uL (4.3-11.0)
[2018-11-16 04:01] LABS: BUN/CREATININE RATIO 17; CARBON DIOXIDE 13 MMOL/L (21-32); CHLORIDE 109 MMOL/L (98-107); GFR ESTIMATED > 60; GLUCOSE 199 MG/DL (70-105); MAGNESIUM 1.8 MG/DL (1.8-2.4); PHOSPHORUS 2.1 MG/DL (2.3-4.7); POTASSIUM 4.5 MMOL/L (3.6-5.0); SODIUM 141 MMOL/L (135-145)
[2018-11-16 04:02] LABS: ABG OXYGEN SATURATION 77 % (94-100); ABG PCO2 28 MMHG (35-45); ABG PH 7.42 (7.37-7.43); ABG PO2 41 MMHG (79-93); ABG TCO2 18.7 MMOL/L (21.0-31.0); ALLENS TEST YES-POS; INSPIRED O2 25% FIO2; PATIENT TEMP 97.7; VENTILATOR YES
[2018-11-16] MEDS: ALBUMIN 25% 25 GM/100 ML 200 ML IV SCH ×2 (04:07→10:19)
[2018-11-16] MEDS ORDERED: SODIUM PHOSPHATE INJ 30 MM in NS (IVPB) 250 ML IV ONE (06:15)
[2018-11-16] MEDS ORDERED: LACTATED RINGERS 1,000 ML IV SCH (06:15)
--- NOTE | 2018-11-16 06:17 | Pulmonary Progress Note ---
Subjective Time Seen by a Provider: 11:23 Subjective/Events-last exam PT is on vent s/p tracheostomy. Sepsis Event Evaluation Height, Weight, BMI Height: 5'2.00" Weight: 192lbs. 5.0oz. [id number]; 22.3 BMI Method:Actual Focused Exam Lactate Level 11/15/18 23:15: Lactic Acid Level 1.38 Exam Exam Vital Signs Date Time Temp Pulse Resp B/P (MAP) Pulse Ox O2 Delivery O2 Flow Rate FiO2 11/16/18 05:00 101 19 132/79 (96) 95 Mechanical Ventilator 25.00 11/16/18 04:00 98.8 11/16/18 04:00 105 28 132/52 (78) 96 Mechanical Ventilator 25.00 11/16/18 04:00 98 Mechanical Ventilator 25 11/16/18 03:08 133 23 94 25 11/16/18 03:00 105 38 114/51 (72) 96 Mechanical Ventilator 25.00 11/16/18 02:00 112 28 95/58 (70) 95 Mechanical Ventilator 25.00 11/16/18 01:00 97 11/16/18 01:00 97 14 127/60 (82) 95 Mechanical Ventilator 25.00 11/16/18 00:45 97 21 97 25 11/16/18 00:00 98 Mechanical Ventilator 25 11/16/18 00:00 101 14 124/67 (86) 97 Mechanical Ventilator 25.00 11/16/18 00:00 97.8 11/15/18 23:00 94 20 104/65 (78) 98 Mechanical Ventilator 25.00 11/15/18 22:10 104 22 97 25 11/15/18 22:00 93 33 102/69 (80) 99 Mechanical Ventilator 25.00 11/15/18 21:07 92 17 105/60 (75) 98 Mechanical Ventilator 25.00 11/15/18 20:30 97 32 105/69 (81) 98 Mechanical Ventilator 25.00 11/15/18 20:04 90 17 98 25 11/15/18 20:00 98 Mechanical Ventilator 25 11/15/18 20:00 92 16 95/34 (54) 98 Mechanical Ventilator 25.00 11/15/18 19:26 97.5 93 16 123/55 (77) 98 Mechanical Ventilator 25.00 11/15/18 19:00 94 16 92/63 (73) 98 Mechanical Ventilator 25.00 11/15/18 19:00 94 11/15/18 18:19 99 20 95 25 11/15/18 18:00 102 19 92/63 (73) 93 Mechanical Ventilator 25.00 11/15/18 17:35 98.4 11/15/18 16:00 75 16 110/51 (70) 97 Mechanical Ventilator 25.00 11/15/18 16:00 97 Mechanical Ventilator 25 11/15/18 15:03 78 17 96 25 11/15/18 15:00 93 30 128/79 (95) 96 Mechanical Ventilator 25.00 11/15/18 14:00 63 11 117/52 (73) 100 Mechanical Ventilator 25.00 11/15/18 13:00 67 9 100 Mechanical Ventilator 25.00 11/15/18 12:44 71 11/15/18 12:24 73 18 96 25 11/15/18 12:00 97 Mechanical Ventilator 25 11/15/18 12:00 68 15 98/75 (83) 97 Mechanical Ventilator 25.00 11/15/18 11:31 97.4 11/15/18 11:00 59 9 101/54 (70) 99 Mechanical Ventilator 25.00 11/15/18 10:35 66 17 95 25 11/15/18 10:00 60 73/45 (54) 100 Mechanical Ventilator 25.00 11/15/18 09:00 55 31 70/45 (53) 100 Mechanical Ventilator 25.00 11/15/18 08:12 60 16 100 25 11/15/18 08:00 97 Mechanical Ventilator 25 11/15/18 08:00 57 32 105/62 (76) 100 Mechanical Ventilator 25.00 11/15/18 08:00 97.4 11/15/18 07:00 71 7 142/90 (107) 99 Mechanical Ventilator 25.00 11/15/18 07:00 65 11/15/18 06:19 71 16 99 25 I & O 11/16/18 07:00 Output Total 995 ml Balance -995 ml Height & Weight Height: 5'2.00" Weight: 192lbs. 5.0oz. 87.847276bl; 22.3 BMI Method:Actual General Appearance: Chronically ill, Thin, Other (trached) HEENT: Other (trach tube in place ) Neck: Normal Inspection, Non Tender Respiratory: Lungs Clear Cardiovascular: Regular Rate, Rhythm Capillary Refill: Less Than 3 Seconds Gastrointestinal: soft, other (inc clean/dry/intact hugo drain serous) Extremity: Normal Inspection, Pedal Edema Neurologic/Psychiatric: No Alert (intubated and sedated) Skin: Pallor Lymphatic: No Adenopathy Results Lab Laboratory Tests 11/15/18 03:30 11/15/18 23:15 11/16/18 03:00 Assessment/Plan Assessment/Plan Acute respiratory failure - Plan for tracheostomy today -Continue ventilator care -Will start weaning vent. failed weaning again yesterday -Will consult [facility] for possible transfer this week after tracheostomy. - TF-- restart -Labs and CXR reviewed -Will restart propofol gtt and Fentanyl pushes for transfer leukocytosis and hypotension -Repan culture -pt is on Levophed currently -Will give a liter of LR and increase IVF to 150cc/hr -Albumen was started per EICU last night -Zosyn and Vanco Day # 5 -- cultures are negative thus far -Cefepime and Flagyl x 3 days then switched to Zosyn, and Vanco. Acute severe GIB - with PUD - s/p ex lap with ligation off gastroduodenal artery and repair of pyloric perforation. - total of 16units of PRBC, 6units of FFP, and 2 units of Platelets this admission -S/p EGD x 3 -Surgery following hypomag -replace Cellulitis -continue abx Atelectasis -Monitor Anasarca - multifactorial Protein dilan malnutrition -TF Tachycardia -Monitor Anemia -Monitor Metabolic lactic acidosis- -IVF hypomag, -replace Left sided rib fractures s/p fall 2 mo ago -IS -Fall risk pleural effusion -Monitor PT will transfer to [facility]. ARJUN MEADE DO November 16, 2018 06:17
[2018-11-16] MEDS: LACTATED RINGERS 1,000 ML IV SCH ×2 (06:33→11:42)
[2018-11-16] MEDS: PIPERACILLIN/TAZOBACTAM (BULK) 4.5 GM in NS (IVPB) 100 ML IV SCH ×2 (06:41→14:33)
[2018-11-16] MEDS: SUCRALFATE 1 GM (CARAFATE) TAB PO SCH ×2 (06:41→10:20)
[2018-11-16] MEDS: PANTOPRAZOLE 40 MG (PROTONIX) VIAL IV SCH (07:54)
--- NOTE | 2018-11-16 07:54 | Diagnostic Imaging Report ---
Indication: GI bleed COMPARISON: 11/15/2018. Trach tube tip above the maikel. OG catheter extends beneath the diaphragm beyond the [id number]. Catheter via left subclavian crosses the midline the tip near the expected junction of the innominates. There are bilateral pleural effusions unchanged. Mediastinal prominence at the level of the aortic knob noted. The heart size itself is stable. There is no pneumothorax. IMPRESSION: Trach tube tip midtrachea. Bilateral pleural effusions not substantially changed. Subclavian line unchanged. No pneumothorax. Some conspicuousness to the aortic shadow either ectatic and/or tortuous. Dictated by: Dictated on workstation # [id number]
[2018-11-16] MEDS: VANCOMYCIN INJECTION 750 MG in NS (IVPB) 250 ML IV SCH (07:55)
--- NOTE | 2018-11-16 07:56 | Anesthesia-General Post-Op ---
General Patient Condition Mental Status/LOC: Same as Preop Cardiovascular: Satisfactory Nausea/Vomiting: Absent Respiratory: Satisfactory Pain: Controlled Complications: Absent Post Op Complications Complications None Follow Up Care/Instructions Patient Instructions None needed. Anesthesia/Patient Condition Patient Condition Patient is doing well, no complaints, stable vital signs, no apparent adverse anesthesia problems. No complications reported per nursing. JUVENAL COOK CRNA November 16, 2018 07:56
--- NOTE | 2018-11-16 10:52 | Progress Note ---
Subjective Date Seen by a Provider: November 16, 2018 Time Seen by a Provider: 10:47 Subjective/Events-last exam Patient s/p trach, no issues with trach. Patient on pressors. Patient HUGO drain serous fluid. Patient follows some demands. No family at bedside. Focused Exam Lactate Level 11/15/18 23:15: Lactic Acid Level 1.38 Objective Exam Vital Signs Date Time Temp Pulse Resp B/P (MAP) Pulse Ox O2 Delivery O2 Flow Rate FiO2 11/16/18 09:06 99 22 96 25 11/16/18 08:00 99.6 11/16/18 08:00 93 19 145/73 (97) 97 Mechanical Ventilator 25.00 11/16/18 08:00 98 Mechanical Ventilator 25 11/16/18 07:45 192 11/16/18 07:07 108 11/16/18 07:00 110 35 141/78 (99) 95 Mechanical Ventilator 25.00 11/16/18 06:50 106 25 96 25 11/16/18 06:00 97 26 140/92 (108) 98 Mechanical Ventilator 25.00 11/16/18 05:00 101 19 132/79 (96) 95 Mechanical Ventilator 25.00 11/16/18 04:00 98.8 11/16/18 04:00 105 28 132/52 (78) 96 Mechanical Ventilator 25.00 11/16/18 04:00 98 Mechanical Ventilator 25 11/16/18 03:08 133 23 94 25 11/16/18 03:00 105 38 114/51 (72) 96 Mechanical Ventilator 25.00 11/16/18 02:00 112 28 95/58 (70) 95 Mechanical Ventilator 25.00 11/16/18 01:00 97 11/16/18 01:00 97 14 127/60 (82) 95 Mechanical Ventilator 25.00 11/16/18 00:45 97 21 97 25 11/16/18 00:00 98 Mechanical Ventilator 25 11/16/18 00:00 101 14 124/67 (86) 97 Mechanical Ventilator 25.00 11/16/18 00:00 97.8 11/15/18 23:00 94 20 104/65 (78) 98 Mechanical Ventilator 25.00 11/15/18 22:10 104 22 97 25 11/15/18 22:00 93 33 102/69 (80) 99 Mechanical Ventilator 25.00 11/15/18 21:07 92 17 105/60 (75) 98 Mechanical Ventilator 25.00 11/15/18 20:30 97 32 105/69 (81) 98 Mechanical Ventilator 25.00 11/15/18 20:04 90 17 98 25 11/15/18 20:00 98 Mechanical Ventilator 25 11/15/18 20:00 92 16 95/34 (54) 98 Mechanical Ventilator 25.00 11/15/18 19:26 97.5 93 16 123/55 (77) 98 Mechanical Ventilator 25.00 11/15/18 19:00 94 16 92/63 (73) 98 Mechanical Ventilator 25.00 11/15/18 19:00 94 11/15/18 18:19 99 20 95 25 11/15/18 18:00 102 19 92/63 (73) 93 Mechanical Ventilator 25.00 11/15/18 17:35 98.4 11/15/18 16:00 75 16 110/51 (70) 97 Mechanical Ventilator 25.00 11/15/18 16:00 97 Mechanical Ventilator 25 11/15/18 15:03 78 17 96 25 11/15/18 15:00 93 30 128/79 (95) 96 Mechanical Ventilator 25.00 11/15/18 14:00 63 11 117/52 (73) 100 Mechanical Ventilator 25.00 11/15/18 13:00 67 9 100 Mechanical Ventilator 25.00 11/15/18 12:44 71 11/15/18 12:24 73 18 96 25 11/15/18 12:00 97 Mechanical Ventilator 25 11/15/18 12:00 68 15 98/75 (83) 97 Mechanical Ventilator 25.00 11/15/18 11:31 97.4 11/15/18 11:00 59 9 101/54 (70) 99 Mechanical Ventilator 25.00 I & O 11/16/18 07:00 Intake Total 2550 ml Output Total 1245 ml Balance 1305 ml Capillary Refill : Greater Than 3 SecondsLess Than 3 Seconds General Appearance: Chronically ill, Thin, Other (on ventilator) HEENT: PERRL/EOMI, Normal ENT Inspection (trach) Neck: Normal Inspection, Non Tender Respiratory: Lungs Clear Cardiovascular: Regular Rate, Rhythm Gastrointestinal: soft, other (inc clean/dry/intact hugo drain serous) Extremity: Normal Inspection, Pedal Edema Neurologic/Psychiatric: Alert (trach and follow some commands) Skin: Pallor Lymphatic: No Adenopathy Results Lab Laboratory Tests 11/15/18 11:58: Glucometer 177H 11/15/18 18:02: Glucometer 169H 11/15/18 19:30: Vancomycin Level Trough 20.1H 11/15/18 19:34: Glucometer 174H 11/15/18 21:20: Urine Color YELLOW, Urine Clarity VERY CLOUDYH, Urine pH 5, Urine Specific [place] 1.025H, Urine Protein 2+H, Urine Glucose (UA) NEGATIVE, Urine Ketones 3+ H, Urine Nitrite NEGATIVE, Urine Bilirubin NEGATIVE, Urine Urobilinogen NORMAL, Urine Leukocyte Esterase 2+H, Urine RBC (Auto) 4+H, Urine RBC 10-25H, Urine WBC 2-5, Urine Squamous Epithelial Cells 2-5, Urine Crystals PRESENTH, Urine Amorphous Sediment MOD NORY URATESH, Urine Bacteria FEWH, Urine Casts NONE, Urine Mucus NEGATIVE, Urine Culture Indicated YES 11/15/18 23:15: Hemoglobin 8.6L, Hematocrit 27L, Sodium Level 141, Potassium Level 4.5, Chloride Level 109H, Carbon Dioxide Level 15L, Anion Gap 17H, Blood Urea Nitrogen 11, Creatinine 0.62, Estimat Glomerular Filtration Rate > 60, BUN/ Creatinine Ratio 18, Glucose Level 186H, Lactic Acid Level 1.38, Calcium Level 8.1L 11/16/18 03:00: Hemoglobin 8.3L, Hematocrit 26L, Sodium Level 141, Potassium Level 4.5, Chloride Level 109H, Carbon Dioxide Level 13L, Anion Gap 19H, Blood Urea Nitrogen 10, Creatinine 0.60, Estimat Glomerular Filtration Rate > 60, BUN/ Creatinine Ratio 17, Glucose Level 199H, Calcium Level 8.0L, White Blood Count 14.4H, Red Blood Count 2.75L, Mean Corpuscular Volume 94, Mean Corpuscular Hemoglobin 30, Mean Corpuscular Hemoglobin Concent 32, Red Cell Distribution Width 16.3H, Platelet Count 361, Mean Platelet Volume 10.1, Neutrophils (%) ( Auto) 90H, Lymphocytes (%) (Auto) 5L, Monocytes (%) (Auto) 4, Eosinophils (%) ( Auto) 1, Basophils (%) (Auto) 0, Neutrophils # (Auto) 12.9H, Lymphocytes # (Auto ) 0.7L, Monocytes # (Auto) 0.6, Eosinophils # (Auto) 0.1, Basophils # (Auto) 0.0 , Phosphorus Level 2.1L, Magnesium Level 1.8 11/16/18 04:00: Blood Gas Puncture Site RT RAD, Blood Gas Patient Temperature 97.7, Arterial Blood pH 7.42, Arterial Blood Partial Pressure CO2 28L, Arterial Blood Partial Pressure O2 41L, Arterial Blood HCO3 18L, Arterial Blood Total CO2 18.7L, Arterial Blood Oxygen Saturation 77L, Arterial Blood Base Excess -6.0L, Jackson Test YES-POS, Blood Gas Ventilator Setting YES, Blood Gas Inspired Oxygen 25% FIO2 Microbiology 11/12/18 Gram Stain - Final, Complete 11/12/18 Sputum Culture - Final, Complete Usual upper respiratory mandy 11/13/18 Urine Culture - Final, Complete NO GROWTH Assessment/Plan Assessment/Plan Assessment/Plan hematemesis melena upper gi bleed pyloric ulcers severe anemia Status post exploratory laparotomy pyloromyotomy controlled gastroduodenal artery closure of perforated pyloric ulcer ventilator dependent respiratory failure Status post tracheostomy patient continue on Protonix 40 mg twice a day. Patient is ventilating well with tracheostomy plan for landmark evaluation Dr. Lozada arranging. Clinical Quality Measures DVT/VTE Risk/Contraindication: Risk Factor Score Per Nursin RFS Level Per Nursing on Admit: 4+=Very High Contraindications-Pharm: Other *list below* Other: gi bleed ROEBRT MARSH DO November 16, 2018 10:52
--- NOTE | 2018-11-16 10:55 | Discharge Summary-Hospitalist ---
Diagnosis/Chief Complaint Date of Admission Nov 02, 2018 at 17:05 Date of Discharge Discharge Date: November 16, 2018 Admission Diagnosis Assessment: Acute GI bleed GERD Dementia Plan: Monitor hemoglobin Transfer to fourth floor EGD and colonoscopy Dr. Bautista tomorrow Home med Discharge Diagnosis (1) Ventilator dependence Status: Acute (2) Respiratory failure Status: Acute (3) Anemia due to acute blood loss Status: Acute (4) GERD (gastroesophageal reflux disease) Status: Chronic (5) Dementia Status: Chronic (6) Acute GI bleeding Status: Acute (7) Weakness Status: Acute (8) Transfusion of blood during current hospitalization Status: Acute (9) Pyloric ulcer Status: Acute Discharge Summary Discharge Physical Exam Allergies: Uncoded Allergies: UNKNOWN BLADDER MED (Allergy, Unknown, 10/03/18) none (Adverse Reaction, Unknown, 08/20/14) Vitals & I&Os Vital Signs Date Time Temp Pulse Resp B/P (MAP) Pulse Ox O2 Delivery O2 Flow Rate FiO2 11/16/18 12:00 98 Mechanical Ventilator 25 11/16/18 11:00 99.0 11/16/18 10:40 109 27 11/16/18 08:00 145/73 (97) 25.00 General Appearance: No Apparent Distress, Other (awake, on vent, trach in place ) Respiratory: Lungs Clear, Normal Breath Sounds Neurologic/Psychiatric: Alert Hospital Course Was the Problem List Reviewed?: Yes Hospital course: patient had a lengthy hospital course for 15 days at [facility] prior to transferring to [facility] due to VDRF with trach placement POD # 1. Patient was admitted for GI bleed underwent multiple EGDs and required surgical corrected procedure. Patient received multiple units of blood during hospital stay along with aggressive IV fluid resuscitation for severe hypotension. Patient ultimately required ventilator dependence it was assessed that she would need trach placement which was completed by Dr. Talamantes in an uncomplicated manner on 11/15/18. Patient was deemed stable for discharge to [facility] long-term [facility] facility for vent dependent patient's and Dr. Lozada arranged everything for placement. Labs (last 24 hrs) Laboratory Tests 11/15/18 18:02: Glucometer 169H 11/15/18 19:30: Vancomycin Level Trough 20.1H 11/15/18 19:34: Glucometer 174H 11/15/18 21:20: Urine Color YELLOW, Urine Clarity VERY CLOUDYH, Urine pH 5, Urine Specific [place] 1.025H, Urine Protein 2+H, Urine Glucose (UA) NEGATIVE, Urine Ketones 3+ H, Urine Nitrite NEGATIVE, Urine Bilirubin NEGATIVE, Urine Urobilinogen NORMAL, Urine Leukocyte Esterase 2+H, Urine RBC (Auto) 4+H, Urine RBC 10-25H, Urine WBC 2-5, Urine Squamous Epithelial Cells 2-5, Urine Crystals PRESENTH, Urine Amorphous Sediment MOD NORY URATESH, Urine Bacteria FEWH, Urine Casts NONE, Urine Mucus NEGATIVE, Urine Culture Indicated YES 11/15/18 23:15: Hemoglobin 8.6L, Hematocrit 27L, Sodium Level 141, Potassium Level 4.5, Chloride Level 109H, Carbon Dioxide Level 15L, Anion Gap 17H, Blood Urea Nitrogen 11, Creatinine 0.62, Estimat Glomerular Filtration Rate > 60, BUN/ Creatinine Ratio 18, Glucose Level 186H, Lactic Acid Level 1.38, Calcium Level 8.1L 11/16/18 03:00: Hemoglobin 8.3L, Hematocrit 26L, Sodium Level 141, Potassium Level 4.5, Chloride Level 109H, Carbon Dioxide Level 13L, Anion Gap 19H, Blood Urea Nitrogen 10, Creatinine 0.60, Estimat Glomerular Filtration Rate > 60, BUN/ Creatinine Ratio 17, Glucose Level 199H, Calcium Level 8.0L, White Blood Count 14.4H, Red Blood Count 2.75L, Mean Corpuscular Volume 94, Mean Corpuscular Hemoglobin 30, Mean Corpuscular Hemoglobin Concent 32, Red Cell Distribution Width 16.3H, Platelet Count 361, Mean Platelet Volume 10.1, Neutrophils (%) ( Auto) 90H, Lymphocytes (%) (Auto) 5L, Monocytes (%) (Auto) 4, Eosinophils (%) ( Auto) 1, Basophils (%) (Auto) 0, Neutrophils # (Auto) 12.9H, Lymphocytes # (Auto ) 0.7L, Monocytes # (Auto) 0.6, Eosinophils # (Auto) 0.1, Basophils # (Auto) 0.0 , Phosphorus Level 2.1L, Magnesium Level 1.8 11/16/18 04:00: Blood Gas Puncture Site RT RAD, Blood Gas Patient Temperature 97.7, Arterial Blood pH 7.42, Arterial Blood Partial Pressure CO2 28L, Arterial Blood Partial Pressure O2 41L, Arterial Blood HCO3 18L, Arterial Blood Total CO2 18.7L, Arterial Blood Oxygen Saturation 77L, Arterial Blood Base Excess -6.0L, Jackson Test YES-POS, Blood Gas Ventilator Setting YES, Blood Gas Inspired Oxygen 25% FIO2 11/16/18 11:26: Glucometer 222H Microbiology 11/12/18 Gram Stain - Final, Complete 11/12/18 Sputum Culture - Final, Complete Usual upper respiratory mandy 11/13/18 Urine Culture - Final, Complete NO GROWTH Patient resulted labs reviewed. Pending Labs Laboratory Tests 11/16/18 11:26: Glucometer 222 Imaging: Reviewed Imaging Report Discussion & Recommendations Discharge Planning: <30 minutes discharge planning Discharge Home Medications: Active Scripts Active Reported Vitamin D3 (Cholecalciferol (Vitamin D3)) 1,000 Unit Capsule 2 Cap PO DAILY Calcium 500 + D Tablet (Calcium Carbonate/Vitamin D3) 1 Each Tablet 2 Tab PO DAILY Multivitamins (Multivitamin) 1 Each Tablet 1 Tab PO DAILY Tylenol Arthritis (Acetaminophen) 650 Mg Tablet.er 650 Mg PO Q6H PRN Ranitidine HCl 150 Mg Tablet 150 Mg PO BID Tramadol HCl 50 Mg Tablet 100 Mg PO Q6H PRN Folic Acid 1 Mg Tablet 1 Mg PO DAILY Atenolol 25 Mg Tablet 25 Mg PO HS Methotrexate (Methotrexate Sodium) 2.5 Mg Tablet 15 Mg PO FR TAKES 6 (2.5MG) TABLETS Instructions to patient/family Please see electronic discharge instructions given to patient. Clinical Quality Measures DVT/VTE Risk/Contraindication: Risk Factor Score Per Nursin RFS Level Per Nursing on Admit: 4+=Very High Contraindications-Pharm: Other *list below* Other: gi bleed Problem Qualifiers (1) Respiratory failure: Chronicity: acute Respiratory failure complication: hypoxia Qualified Codes : J96.01 - Acute respiratory failure with hypoxia (2) GERD (gastroesophageal reflux disease): Esophagitis presence: without esophagitis Qualified Codes: K21.9 - Gastro- esophageal reflux disease without esophagitis (3) Dementia: Dementia type: Alzheimer's disease Alzheimer's disease onset: unspecified onset Dementia behavioral disturbance: without behavioral disturbance Qualified Codes: G30.9 - Alzheimer's disease, unspecified; F02.80 - Dementia in other diseases classified elsewhere without behavioral disturbance (4) Pyloric ulcer: Gastric ulcer chronicity: acute Qualified Codes: K25.3 - Acute gastric ulcer without hemorrhage or perforation BO SUÁREZ DO November 16, 2018 10:55
[2018-11-16] MEDS ORDERED: PROPOFOL DRIP (ICU) 100 ML IV SCH (11:30)
[2018-11-16] MEDS ORDERED: fentaNYL INJECTION 100 MCG/2 ML AMP IVP PRN (11:30)
--- NOTE | 2018-11-16 11:38 | NUR ---
CM/SS patient accepted to [facility] and will transfer this day. EMS transfer form filled out and supplied to RN[facility], [facility] will call when ready.
--- NOTE | 2018-11-16 13:33 | NUR ---
Report called to PRISCILLA Singleton who will assume pt care at [place] [facility] on pt arrival. EMS notified at this time for transportation. Will await EMS arrival for discharge of pt.
--- NOTE | 2018-11-16 13:36 | Cardiology Progress Note ---
Cardiology SOAP Progress Note Subjective: Status post tracheostomy, ventilated Objective: I&O/Vital Signs 11/16/18 11/16/18 11/16/18 11/16/18 02:00 03:00 03:08 04:00 Pulse 112 105 133 Resp 28 38 23 B/P (MAP) 95/58 (70) 114/51 (72) Pulse Ox 95 96 94 98 O2 Delivery Mechanical Ventilator Mechanical Ventilator Mechanical Ventilator O2 Flow Rate 25.00 25.00 FiO2 25 25 11/16/18 11/16/18 11/16/18 11/16/18 04:00 04:00 05:00 06:00 Temp 98.8 Pulse 105 101 97 Resp 28 19 26 B/P (MAP) 132/52 (78) 132/79 (96) 140/92 (108) Pulse Ox 96 95 98 O2 Delivery Mechanical Ventilator Mechanical Ventilator Mechanical Ventilator O2 Flow Rate 25.00 25.00 25.00 11/16/18 11/16/18 11/16/18 11/16/18 06:50 07:00 07:07 07:45 Pulse 106 110 108 192 Resp 25 35 B/P (MAP) 141/78 (99) Pulse Ox 96 95 O2 Delivery Mechanical Ventilator O2 Flow Rate 25.00 FiO2 25 11/16/18 11/16/18 11/16/18 11/16/18 08:00 08:00 08:00 09:06 Temp 99.6 Pulse 93 99 Resp 19 22 B/P (MAP) 145/73 (97) Pulse Ox 98 97 96 O2 Delivery Mechanical Ventilator Mechanical Ventilator O2 Flow Rate 25.00 FiO2 25 25 11/16/18 11/16/18 11/16/18 10:40 11:00 12:00 Temp 99.0 Pulse 109 Resp 27 Pulse Ox 95 98 O2 Delivery Mechanical Ventilator FiO2 25 25 11/16/18 00:00 Intake Total 250 ml Output Total 395 ml Balance -145 ml Weight (Pounds): 183 Weight (Ounces): 5.0 Weight (Calculated Kilograms): 83.970883 Constitutional: appears stated age; No AAO x 3, No apparent distress, No PERRL ; well-developed, well-nourished, other (intubated/ventilated.) Respiratory: No accessory muscle use, No respiratory distress, No chest tender , No chest expansion is symmetric; chest is bilaterally symmetric; No lungs clear to percussion; lungs clear to auscultation; No crackles, No rhonchi, No rales, No stridor, No wheezing, No pleural rub; other (intubated and on mec vent ; good bilat air entry) Cardiovascular: regular rate-rhythm; No irregularly irregular, No extra beats, No parasternal heave is noted, No JVD, No edema, No bradycardia, No tachycardia , No point of maximal impulse, No cardiac thrills are palpable; S1 and S2; No gallop/S3, No gallop/S4, No diastolic murmur, No systolic murmur, No friction rub, No click, No other Gastrointestional: No tender; soft; No round, No distended, No pulsatile mass, No organomegaly, No guarding, No rebound, No tenderness, No hernia, No mass; audible bowel sounds; No abnormal bowel sounds, No abdominal bruits, No spleenomegaly, No other Extremities: No clubbing, No cyanosis; significant edema (involving upper and lower limbs) Neurologic/Psychiatric: other (On mech vent; unable to cooperate with any neuro exam) Skin: No diaphoresis; pallor; No rash on exposed areas, No ulcerations on exposed areas Results/Procedures: Labs Laboratory Tests 11/15/18 18:02: Glucometer 169H 11/15/18 19:30: Vancomycin Level Trough 20.1H 11/15/18 19:34: Glucometer 174H 11/15/18 21:20: Urine Color YELLOW, Urine Clarity VERY CLOUDYH, Urine pH 5, Urine Specific [place] 1.025H, Urine Protein 2+H, Urine Glucose (UA) NEGATIVE, Urine Ketones 3+ H, Urine Nitrite NEGATIVE, Urine Bilirubin NEGATIVE, Urine Urobilinogen NORMAL, Urine Leukocyte Esterase 2+H, Urine RBC (Auto) 4+H, Urine RBC 10-25H, Urine WBC 2-5, Urine Squamous Epithelial Cells 2-5, Urine Crystals PRESENTH, Urine Amorphous Sediment MOD NORY URATESH, Urine Bacteria FEWH, Urine Casts NONE, Urine Mucus NEGATIVE, Urine Culture Indicated YES 11/15/18 23:15: Hemoglobin 8.6L, Hematocrit 27L, Sodium Level 141, Potassium Level 4.5, Chloride Level 109H, Carbon Dioxide Level 15L, Anion Gap 17H, Blood Urea Nitrogen 11, Creatinine 0.62, Estimat Glomerular Filtration Rate > 60, BUN/ Creatinine Ratio 18, Glucose Level 186H, Lactic Acid Level 1.38, Calcium Level 8.1L 11/16/18 03:00: Hemoglobin 8.3L, Hematocrit 26L, Sodium Level 141, Potassium Level 4.5, Chloride Level 109H, Carbon Dioxide Level 13L, Anion Gap 19H, Blood Urea Nitrogen 10, Creatinine 0.60, Estimat Glomerular Filtration Rate > 60, BUN/ Creatinine Ratio 17, Glucose Level 199H, Calcium Level 8.0L, White Blood Count 14.4H, Red Blood Count 2.75L, Mean Corpuscular Volume 94, Mean Corpuscular Hemoglobin 30, Mean Corpuscular Hemoglobin Concent 32, Red Cell Distribution Width 16.3H, Platelet Count 361, Mean Platelet Volume 10.1, Neutrophils (%) ( Auto) 90H, Lymphocytes (%) (Auto) 5L, Monocytes (%) (Auto) 4, Eosinophils (%) ( Auto) 1, Basophils (%) (Auto) 0, Neutrophils # (Auto) 12.9H, Lymphocytes # (Auto ) 0.7L, Monocytes # (Auto) 0.6, Eosinophils # (Auto) 0.1, Basophils # (Auto) 0.0 , Phosphorus Level 2.1L, Magnesium Level 1.8 11/16/18 04:00: Blood Gas Puncture Site RT RAD, Blood Gas Patient Temperature 97.7, Arterial Blood pH 7.42, Arterial Blood Partial Pressure CO2 28L, Arterial Blood Partial Pressure O2 41L, Arterial Blood HCO3 18L, Arterial Blood Total CO2 18.7L, Arterial Blood Oxygen Saturation 77L, Arterial Blood Base Excess -6.0L, Jackson Test YES-POS, Blood Gas Ventilator Setting YES, Blood Gas Inspired Oxygen 25% FIO2 11/16/18 11:26: Glucometer 222H Microbiology 11/12/18 Gram Stain - Final, Complete 11/12/18 Sputum Culture - Final, Complete Usual upper respiratory mandy 11/13/18 Urine Culture - Final, Complete NO GROWTH A/P: Assessment/Dx: Severe GI bleeding, anemia, Severe respiratory failure Plan: Severe GI bleeding, transfusion with PRBCs, status post upper and lower GI endoscopy. s/p exploratory laparotomy, pyloromyotomy, ligation of gastroduodenal artery, repair of perforated pyloric ulcer. Transient shock due to blood loss Acute resp failure. Currently with pulmonary infiltrates: ARDS vs pneumonia vs atelectasis Echocardiogram done 11/04/2018 shows normal LV function with mild to moderate LVH , moderate to severe pulmonary hypertension. Collapsed IVC suggesting significant volume depletion. Sinus tachycardia, resolved. Hypotensive, on low dose levophed. Thank you for your consultation. Please call me if you have any questions. Belinda Thrasher MD, FACP, FACC, FSCAI, FHRS, CCDS Interventional Cardiology Cardiac Electrophysiology Vascular Medicine and Endovascular Interventions Focused Exam Lactate Level 11/15/18 23:15: Lactic Acid Level 1.38 Yan THRASHER MD November 16, 2018 13:36
--- NOTE | 2018-11-16 15:10 | NUR ---
EMS at bedside to transfer pt at this time. [place] notified of pt's departure. No personal belongings with pt at this time. obtained all prior to transfer.
--- NOTE | 2018-11-18 17:01 | Physician Query-Final Dx ---
Final Diagnosis Give Final Diagnosis Dr Talamantes, Can you clarify on your EGD reports for 11/05, were these both done during the same EGD. 1. 1 EGD done on 11/05, two OP reports 2. 2 separate EGD's done on 11/05 Thank you, COBY CHAVEZ November 18, 2018 17:01
== END 2018-11-16 15:10 | DRG 3 ==
LOC: EDUNIT# 15:46 → ER FS 15:48 → ICU 17:05 → 4TH 11-03 12:15 → ICU 11-04 09:55
PROVIDERS: ADMIT Internal Medicine; ATTEND Internal Medicine
PROC: 0DB48ZX Excision of Esophagogastric Junction, Via Natural or Artificial Opening Endoscopic, Diagnostic (ICD-10-PCS; 2018-11-04)
PROC: 0DB78ZX Excision of Stomach, Pylorus, Via Natural or Artificial Opening Endoscopic, Diagnostic (ICD-10-PCS; 2018-11-04)
PROC: 0BH17EZ Insertion of Endotracheal Airway into Trachea, Via Natural or Artificial Opening (ICD-10-PCS; 2018-11-05)
PROC: 5A1955Z Respiratory Ventilation, Greater than 96 Consecutive Hours (ICD-10-PCS; 2018-11-05)
PROC: 0DC78ZZ Extirpation of Matter from Stomach, Pylorus, Via Natural or Artificial Opening Endoscopic (ICD-10-PCS; 2018-11-05)
PROC: 0DC98ZZ Extirpation of Matter from Duodenum, Via Natural or Artificial Opening Endoscopic (ICD-10-PCS; 2018-11-05)
PROC: 3E0G8GC Introduction of Other Therapeutic Substance into Upper GI, Via Natural or Artificial Opening Endoscopic (ICD-10-PCS; 2018-11-05)
PROC: 0DJ08ZZ Inspection of Upper Intestinal Tract, Via Natural or Artificial Opening Endoscopic (ICD-10-PCS; 2018-11-05)
PROC: 0DQ70ZZ Repair Stomach, Pylorus, Open Approach (ICD-10-PCS; 2018-11-07)
PROC: 04L20ZZ Occlusion of Gastric Artery, Open Approach (ICD-10-PCS; 2018-11-07)
PROC: 0DJ08ZZ Inspection of Upper Intestinal Tract, Via Natural or Artificial Opening Endoscopic (ICD-10-PCS; 2018-11-07)
PROC: 0D870ZZ Division of Stomach, Pylorus, Open Approach (ICD-10-PCS; principal; 2018-11-07 15:57)
PROC: 0B110F4 Bypass Trachea to Cutaneous with Tracheostomy Device, Open Approach (ICD-10-PCS; 2018-11-15)
DX: K25.6 Chronic or unspecified gastric ulcer with both hemorrhage and perforation (principal); D62 Acute posthemorrhagic anemia; J96.01 Acute respiratory failure with hypoxia; R57.1 Hypovolemic shock; J90 Pleural effusion, not elsewhere classified; E87.2 Acidosis; E87.0 Hyperosmolality and hypernatremia; J98.11 Atelectasis; K26.6 Chronic or unspecified duodenal ulcer with both hemorrhage and perforation; K29.70 Gastritis, unspecified, without bleeding; E11.65 Type 2 diabetes mellitus with hyperglycemia; I27.20 Pulmonary hypertension, unspecified; G30.9 Alzheimer's disease, unspecified; F02.80 Dementia in other diseases classified elsewhere, unspecified severity, without behavioral disturbance, psychotic disturbance, mood disturbance, and anxiety; E46 Unspecified protein-calorie malnutrition; M06.9 Rheumatoid arthritis, unspecified; R91.8 Other nonspecific abnormal finding of lung field; K21.0 Gastro-esophageal reflux disease with esophagitis; K44.9 Diaphragmatic hernia without obstruction or gangrene; F32.9 Major depressive disorder, single episode, unspecified; E83.42 Hypomagnesemia; I95.9 Hypotension, unspecified; E87.6 Hypokalemia; E83.39 Other disorders of phosphorus metabolism; R60.1 Generalized edema; S22.42XD Multiple fractures of ribs, left side, subsequent encounter for fracture with routine healing; W19.XXXD Unspecified fall, subsequent encounter; Z87.11 Personal history of peptic ulcer disease; Z96.641 Presence of right artificial hip joint; Z79.52 Long term (current) use of systemic steroids
CPT/HCPCS: 36415; 36600; 71045; 80048; 80053; 80202; 81000; 82140; 82330; 82805; 82947; 82962; 83605; 83690; 83735; 83880; 84100; 84134; 85007; 85014; 85018; 85025; 85027; 85384; 85610; 85730; 86850; 86900; 86901; 86920; 87040; 87070; 87081; 87088; 87205; 88305; 93306; 94002; 94003; 94640; 94660; 94664; 94760; 94799

== ENCOUNTER 2019-01-05 10:35 | Inpatient (IN) | payer MEDICARE, OTHER ==
[~2019-01-05] VITALS: Ht 157.5 cm; Wt 53.2 kg
[2019-01-05 10:30] VITALS: BP 116/66
[~2019-01-05 10:35] MED LIST changes: +ACET-2650 PO; +ATEN25TA PO; +CALC-654 PO; +CHOL10007 PO; +FOLI1TAB24 PO; +METH2.5T PO; +MULT1TAB69 PO; +RANI150T11 PO; +TRAM50TA2 PO
[2019-01-05] MEDS ORDERED: CALCIUM CARBONATE 500 MG (TUMS) TAB.CHEW PO PRN (11:00)
[2019-01-05] MEDS ORDERED: DOCUSATE SODIUM 100 MG (COLACE) CAP PO PRN (11:00)
[2019-01-05] MEDS ORDERED: ACETAMINOPHEN 500 MG TAB (TYLENOL) PO PRN (11:00)
[2019-01-05] MEDS ORDERED: MELATONIN 3 MG TABLET PO PRN (11:00)
[2019-01-05] MEDS ORDERED: diphenhydrAMINE 25 MG TAB (BENADRYL) PO PRN (11:00)
--- NOTE | 2019-01-05 11:30 | Physical Therapy Evaluation ---
PT Evaluation-General Medical Diagnosis Admission Date Jan 05, 2019 at 10:35 Medical Diagnosis: critical illness myopathy Onset Date: Jan 05, 2019 Therapy Diagnosis Therapy Diagnosis: abnormal gait Height/Weight Height (Feet): 5 Height (Inches): 2.00 Weight (Pounds): 183 Weight (Ounces): 5.0 Precautions Precautions/Isolations: Standard Precautions Weight Bear Status Right Lower Extremity: Right Full Weight Bearing Left Lower Extremity: Left Full Weight Bearing Referral Physician: Tamara Reason for Referral: Evaluation/Treatment Medical History Pertinent Medical History: Atrial Fib, DM, Dementia, GERD Current History Hospital courseprior to return to this facility: patient had a lengthy hospital course for 15 days at [facility] prior to transferring to [facility] due to VDRF with trach placement POD # 1. Patient was admitted for GI bleed underwent m ultiple EGDs and required surgical corrected procedure. Patient received multiple units of blood during hospital stay along with aggressive IV fluid resuscitation for severe hypotension. Patient ultimately required ventilator dependence it was assessed that she would need trach placement which was completed by Dr. Talamantes in an uncomplicated manner on 11/15/18. Patient was deemed stable for discharge to [facility] long-term care facility. Pt has returned to this facility to ARU for continued medical management and aggressive therapy services. Reviewed History: Yes Social History Home: Single Level Current Living Status: Spouse Entry Into Home: Stairs With Railing PT Steps Into Home: 1 (with a handrail) PT Steps Inside Home: 3 (pt reports she has a rail) Prior/Core FIM Prior Level of Function Therapy Code Descriptions/Definitions Functional [place] Measure: 0=Not Assessed/NA 4=Minimal Assistance 1=Total Assistance 5=Supervision or Setup 2=Maximal Assistance 6=Modified [place] 3=Moderate Assistance 7=Complete [place] Therapy Quality Codes: 6 Independent with activity with or without an assistive device 5 Patient requires set up or clean up by helper. Patient completes activity by themselves 4 Supervision or touching assist (CGA). Nara Visa provide cues , steadying assist 3 The helper provides less than half the effort to complete the activity 2 The helper provides more than half the effort to complete the activity 1 Dependent. The helper does all the effort to complete an activity 7 Patient refused to complete or attempt activity 9 The patient did not perform the activity before the current illness or injury 88 Not attempted due to Medical conditions or safety concerns Functional Abilities and Goals: Independent: Patient completed the activities by him/herself, with or without an assistive device, with no assistance from a helper. Needed Some Help: Patient needed partial assistance from another person to complete activities. Dependent: A helper completed the activities for the patient. Unknown: Not Applicable: Bed Mobility: 7 Transfers (B,C,W/C) (FIM): 7 Gait: 6 (pt reports she was indep in her home, furniture walking but used a cane outside of her home. ) Stairs: 6 Indoor Mobility (Ambulation): Independent Prior Devices Use: Walker, Other-see list below (cane) Pt reports she stays home primarily, leaves infrequently for doctor visits and such. PT Evaluation-Current Subjective Pt reports she knows what to expect here as she has been on this unit before, reports she was here in 2015 post hip fracture. Reports she is hoping to get stronger so she can return home. Pain Numeric Pain Scale: 7 Location: Soft Tissue Pain Description: Ache Comment: pt reports generalized pain all over. Pt/Family Goals return home with her as a 'stronger person' Objective Patient Orientation: Person, Place, Time, Situation Problem Solving: Fair Attachments: Oxygen (trach), PEG Tube ROM/Strength ROM Lower Extremities AAROM WFL Strenght Lower Extremities B LE strength is grossly 2/5 throughout; left LE seems to be a bit stronger than the right. Integumentary/Posture Bowel Incontinence: Yes Bladder Incontinence: Yes Sensory Vision: Functional Hearing: Functional Hand Dominance: Left Sensation Right Lower Extremit: Intact Sensation Left Lower Extremity: Intact Transfers Therapy Code Descriptions/Definitions Functional [place] Measure: 0=Not Assessed/NA 4=Minimal Assistance 1=Total Assistance 5=Supervision or Setup 2=Maximal Assistance 6=Modified [place] 3=Moderate Assistance 7=Complete [place] Therapy Quality Codes: 6 Independent with activity with or without an assistive device 5 Patient requires set up or clean up by helper. Patient completes activity by themselves 4 Supervision or touching assist (CGA). Nara Visa provide cues , steadying assist 3 The helper provides less than half the effort to complete the activity 2 The helper provides more than half the effort to complete the activity 1 Dependent. The helper does all the effort to complete an activity 7 Patient refused to complete or attempt activity 9 The patient did not perform the activity before the current illness or injury 88 Not attempted due to Medical conditions or safety concerns Transfers (B, C, W/C) (FIM): 1 (dependent) Scootin (assist of 2) Rollin Roll Left to Right (QC): 2 Sit to Lying (QC): 1 Lying to Sitting/Side of Bed(Q: 1 Sit to Stand (QC): 1 Chair/Fav-gr-Livwa Xfer(QC): 1 Car Transfer (QC): 88 radha transfer Gait Does the Patient Walk?: No and Walking Goal IS indicated Mode of Locomotion: Walk Anticipated Mode of Locomotion: Walk Gait (FIM): 0 (unable to stand at this time. ) Distance (FIM): 0=does not occure Walk 10 feet (QC): 88 Walk 50 ft with 2 Turns(QC): 88 Walk 150 ft (QC): 88 Walking 10ft/uneven surface-QC: 88 Comments/Gait Description unable to come to a stand to attempt ambulation Wheelchair Training Does the Pt Use a Wheelchair?: No Stairs Stairs (FIM): 0 1 Step (curb) (QC): 88 4 Steps (QC): 88 12 Steps (QC): 88 If not tested on admit;explain unable to stand up Balance Sitting Static: Poor Sitting Dynamic: Poor Picking up an Object (QC): 88 Special Test Comments constant assist to maintain sitting balance; pt able to attempt toright herself but needs assist. Treatment Functional bed mobility, LE ther ex for functional strengthening and education on ARU Assessment/Needs Pt has faced a lengthy hospital course with multiple complications. She presents with significant functional weakness that impairs all transfers, core balance and ability to stand; she requires max to dep assist for all mobility currently. Her PLOF was mod indep to indep and she is motivated to return to at capacity. She will benefit from aggressive skilled intervention with possible co treating with OT initially to improve her ability to mobilize and to strengthen to a level of indep that she can manage at home. Rehab Potential: Fair PT Short Term Goals Short Term Goals Time Frame: Jan 19, 2019 Transfers (B,C,W/C) (FIM): 3 Gait (FIM): 2 Distance (FIM): 4=080-19 ft Gait Assistive Device: FWW PT [facility] Goals [facility] Goals PT [facility] Goals Time Frame: Feb 02, 2019 Transfers (B,C,W/C) (FIM): 6 Sit to Lying (QC): 6 Lying-Sitting on Side/Bed(QC): 6 Sit to Stand (QC): 6 Roll Left to Right (QC): 6 Chair/Xom-rh-Lktpg Xfer(QC): 6 Car Transfer (QC): 5 Does the Patient Walk: No and Walking Goal IS indicated Gait (FIM): 5 Gait distance (FIM): 3=482-19 ft Walk 10 feet (QC): 5 Walk 10ft-Uneven Surface(QC): 5 Walk 50ft with 2 Turns (QC): 5 Walk 150 ft (QC): 4 Gait Assistive Device: FWW Does the Pt use WC or Scooter?: No Stairs (FIM): 2 # of Steps: 4 1 Step (curb) (QC): 5 4 Steps (QC): 4 12 Steps (QC): 88 Picking up an Object (QC): 88 PT Plan Problem List Problem List: Activity Tolerance, Functional Strength, Safety, Balance, Gait, Transfer, Bed Mobility Treatment/Plan Treatment Plan: Continue Plan of Care Treatment Plan: Bed Mobility, Education, Functional Activity Ralph, Functional Strength, Group Therapy, Gait, Safety, Therapeutic Exercise, Transfers Treatment Duration: Feb 02, 2019 Frequency: At least 5 of 7 days/Wk (IRF) Estimated Hrs Per Day: 1.5 hours per day Patient and/or Family Agrees t: Yes Safety Risks/Education Patient Education: Transfer Techniques, Safety Issues Teaching Recipient: Patient Teaching Methods: Discussion Response to Teaching: Reinforcement Needed Discharge Recommendations Therapy D/C Recommendations: Physical Therapy Home Care Time/GCodes Time In: 1035 Time Out: 1205 Total Billed Treatment Time: 90 Total Billed Treatment visit EVM 30 FA 60 SALLY CENTENO PT Jan 05, 2019 11:30
--- NOTE | 2019-01-05 13:02 | Occupational Therapy Eval ---
OT Evaluation-General/PLF Medical Diagnosis Admission Date Jan 05, 2019 at 10:35 Medical Diagnosis: critical illness myopathy Onset Date: Jan 05, 2019 Therapy Diagnosis Therapy Diagnosis: IMPAIRED ADLS AND MOBILITY Height/Weight Height (Feet): 5 Height (Inches): 2.00 Weight (Pounds): 114 Weight (Ounces): 0.0 Precautions Precautions/Isolations: Fall Prevention, Standard Precautions Weight Bear Status Weight Bearing Restriction: Weight Bearing/Tolerated Referral Physician: Tamara Referral Reason: Activity Tolerance, Self Care, Evaluation/Treatment, Strengthening/ROM Medical History Pertinent Medical History: Atrial Fib, DM, Dementia, GERD Current History Hospital courseprior to return to this facility: patient had a lengthy hospital course for 15 days at [facility] prior to transferring to [facility] due to VDRF with trach placement POD # 1. Patient was admitted for GI bleed underwent multiple EGDs and required surgical corrected procedure. Patient received multiple units of blood during hospital stay along with aggressive IV fluid resuscitation for severe hypotension. Patient ultimately required ventilator dependence it was assessed that she would need trach placement which was completed by Dr. Talamantes in an uncomplicated manner on 11/15/18. Patient was deemed stable for discharge to [facility] long-term [facility] facility. Pt has returned to this facility to ARU for continued medical management and aggressive therapy services. Reviewed History: Yes Social History Home: Single Level Steps Into Home: 1 (with a handrail) Steps Inside Home: 3 (pt reports she has a rail) ADL-Prior Level of Function Therapy Code Descriptions/Definitions Functional [place] Measure: 0=Not Assessed/NA 4=Minimal Assistance 1=Total Assistance 5=Supervision or Setup 2=Maximal Assistance 6=Modified [place] 3=Moderate Assistance 7=Complete [place] Therapy Quality Codes: 6 Independent with activity with or without an assistive device 5 Patient requires set up or clean up by helper. Patient completes activity by themselves 4 Supervision or touching assist (CGA). Gary provide cues , steadying assist 3 The helper provides less than half the effort to complete the activity 2 The helper provides more than half the effort to complete the activity 1 Dependent. The helper does all the effort to complete an activity 7 Patient refused to complete or attempt activity 9 The patient did not perform the activity before the current illness or injury 88 Not attempted due to Medical conditions or safety concerns Functional Abilities and Goals: Independent: Patient completed the activities by him/herself, with or without an assistive device, with no assistance from a helper. Needed Some Help: Patient needed partial assistance from another person to complete activities. Dependent: A helper completed the activities for the patient. Unknown: Not Applicable: ADL PLOF Comments pt reports she was mobile 6 months ago and was received help from her for her ADLS PRN Self Care: Needed Some Help Functional Cognition: Needed Some Help DME/Equipment: Bath Chair, Tub/Shower Drive Self: No OT Current Status Subjective pt laying in bed upon OT arrival with HOB elevated to 40 degrees. pt agreed to OT evaluation./ treatment session. pt c/o of pain "all over" 11/25. Appearance trach Mental Status/Objective Patient Orientation: Person, Place, Time, Situation Attachments: Oxygen (10 L when on wall O2 with moisture; or 2L mask when out of room accord. to resp. ), PEG Tube Current Glasses/Contacts: Yes Hearing Aids: No Dentures/Partials: No Hand Dominance: Left Upper Extremity ROM WFL noted ulnar deviation with ayush hands Upper Extremity Coordination decrease overall coordination due to ayush UE tremors. pt stated trimmers started 6 months ago. Upper Extremity Sensation WFL Upper Extremity Strength /5 MMT Edema: noted increase in ayush hand joints ADL-Treatment Eating (FIM): 1 (secondary to tremmors ) Eating (QC): 1 Grooming (FIM): 2 Oral Hygiene (QC): 2 Bathing (FIM): 2 (required assist with 7/10 body parts ) Bathing Location: L Arm, R Arm, Chest Shower/Bathe Self (QC): 1 Upper Body Dressing (FIM): 1 (required TA to apply jacket. ) Upper Body Dressing (QC): 1 Lower Body Dressing (FIM): 1 (dep. for all LB activity) Lower Body Dressing (QC): 1 On/Off Footwear (QC): 1 Toileting (FIM): 1 (dina lift ) Toileting Hygiene (QC): 1 Transfers (B, C, W/C) (FIM): 1 (dina lift ) Toilet/Commode Transfer (FIM): 1 (dina lift ) Toilet Transfer (QC): 1 (dina lift ) Shower Transfer (FIM): 0 (NT secodanry to safety. pt is dina lift ) noted limited activity tolerance and SOB with all tasks. pt required frequent rest breaks and cuing to activity participate in TX session. pt is incontinent and required TA for hygiene. pt required MAX A to perform rolling R<>L in bed, and TA/ Dina lift for functional transfers. noted pt is unable to bearweight through UE secondary to extreme weakness but is able to complete full ROM. Education OT Patient Education: Modified ADL techniques, Progress toward Goal/Update tx plan, Purpose of tx/functional activities, Safety issues, Transfer techniques Teaching Recipient: Patient Teaching Methods: Demonstration, Discussion Response to Teaching: Verbalize Understanding, Reinforcement Needed OT Short Term Goals Short Term Goals Eating(FIM): 3 Grooming(FIM): 3 Bathing(FIM): 3 Upper Body Dressing(FIM): 3 Lower Body Dressing(FIM): 3 Toileting(FIM): 3 Transfers (B,C,W/C) (FIM): 3 Toilet/Commode Transfer(FIM): 3 Shower Transfer(FIM): 3 1=Demonstrate adherence to instructed precautions during ADL tasks. 2=Patient will verbalize/demonstrate understanding of assistive devices/modifications for ADL. 3=Patient will improve strength/tolerance for activity to enable patient to perform ADL's. OT [employer] Goals Residential Goals Eating (FIM): 6 Eating (QC): 6 Groomin Oral Hygiene (QC): 6 Bathing(FIM): 5 Bathing Location: L Arm, R Arm, L Upper Leg, R Upper Leg, L Lower Leg (including foot), R Lower Leg (including foot), Chest, Abdomen, Buttocks, Perineal Area Shower/Bathe Self (QC): 5 Upper Body Dressing(FIM): 5 Upper Body Dressing (QC): 5 Lower Body Dressing(FIM): 5 Lower Body Dressing (QC): 5 On/Off Footwear (QC): 5 Toileting(FIM): 5 Toileting Hygiene (QC): 5 Transfers (B,C,W/C) (FIM): 5 Toilet/Commode Transfer(FIM): 5 Toilet/Commode Transfer (QC): 5 Shower Transfer(FIM): 5 Additional Goals: 1-Demonstrate ADL Tasks, 2-Verbalize Understanding, 3- ImproveStrength/Ralph 1=Demonstrate adherence to instructed precautions during ADL tasks. 2=Patient will verbalize/demonstrate understanding of assistive devices/modifications for ADL. 3=Patient will improve strength/tolerance for activity to enable patient to perform ADL's. OT Education/Plan Problem List/Assessment Assessment: Decreased Activ Tolerance, Decreased Safety Aware, Decreased UE Strength, Dependent Transfers, Edema, Impaired Bed Mobility, Impaired Coordination, Impaired Funct Balance, Impaired I ADL's, Impaired Self-Care Skills, Restricted Funct UE ROM pt presents with functional limitations affecting areas of ADLs and functional transfers with the above mention. pt would benefit from skilled OT services to address above mention deficits and to increase independence with ADLs and functional transfers. Discharge Recommendations Plan/Recommendations: Continue POC Barriers to Progress UE weakness, limited activity tolerance, decrease overall balance Treatment Plan/Plan of Care Treatment,Training & Education: Yes Patient would benefit from OT for education, treatment and training to promote independence in ADL's, mobility, safety and/or upper extremity function for ADL's. Plan of Care: ADL Retraining, Caregiver Training, Cognitive Retraining, Concurrent Therapy, Functional Mobility, Group Exercise/Act as Ind, UE Funct Exercise/Act Treatment Duration: Feb 09, 2019 Frequency: At least 5 of 7 days/Wk (IRF) Estimated Hrs Per Day: 1 hour per day (60-90 minutes per day ) Agreement: Yes Rehab Potential: Fair Time/GCodes Start Time: 13:50 Stop Time: 14:20 Billed Treatment Time EVM 15 minutes, ADL 75 minutes, 5 units ANGELY CHOUDHURY OT Jan 05, 2019 13:02
[2019-01-05 13:40] LABS: MEAN PLATELET VOLUME 8.5 FL (7.4-10.4); RED CELL DISTRIBUTION WIDTH 16.4 % (10.0-14.5); WHITE BLOOD COUNT 8.5 10^3/uL (4.3-11.0)
[2019-01-05 13:57] LABS: BUN/CREATININE RATIO 33; CALCIUM 9.9 MG/DL (8.5-10.1); CARBON DIOXIDE 28 MMOL/L (21-32); CHLORIDE 101 MMOL/L (98-107); GFR ESTIMATED > 60; GLUCOSE 204 MG/DL (70-105); MAGNESIUM 1.6 MG/DL (1.8-2.4); PHOSPHORUS 2.6 MG/DL (2.3-4.7); POTASSIUM 5.2 MMOL/L (3.6-5.0); SODIUM 138 MMOL/L (135-145)
[2019-01-05] MEDS ORDERED: HYDR-3816 PEG (14:46)
[2019-01-05] MEDS ORDERED: METO-333 PEG (14:46)
[2019-01-05] MEDS ORDERED: LIPA1CAP26 PEG (14:46)
[2019-01-05] MEDS ORDERED: OMEG1CAP PEG (14:46)
[2019-01-05] MEDS ORDERED: LIDO1ADH41 TP (14:46)
[2019-01-05] MEDS ORDERED: MULT-166 PEG (14:46)
[2019-01-05] MEDS ORDERED: ALBU2.5V4 NEB (14:46)
[2019-01-05] MEDS ORDERED: POTA40LI11 PEG (14:46)
[2019-01-05] MEDS ORDERED: IPRA3AMP31 NEB (14:46)
[2019-01-05] MEDS ORDERED: PHEN30SP8 MM (14:46)
[2019-01-05] MEDS ORDERED: MIDO10TA PEG (14:46)
[2019-01-05] MEDS ORDERED: SILD20TA PEG (14:46)
[2019-01-05] MEDS ORDERED: ASPI325T32 PO (14:46)
[2019-01-05] MEDS ORDERED: ENOX40DI13 SQ (14:46)
[2019-01-05] MEDS ORDERED: INSU100V SQ (14:46)
[2019-01-05] MEDS ORDERED: THEO100T16 PEG (14:46)
[2019-01-05] MEDS ORDERED: ASCO500T6 PEG (14:46)
[2019-01-05] MEDS ORDERED: NIAC250T8 PEG (14:46)
[2019-01-05] MEDS ORDERED: LANS30CA43 PEG (14:46)
[2019-01-05] MEDS ORDERED: NUT.237L23 PEG (14:46)
[2019-01-05] MEDS ORDERED: SODI325T PEG (14:46)
[2019-01-05] MEDS ORDERED: ACET325T38 PEG (14:46)
[2019-01-05] MEDS ORDERED: ROFL250T PEG (14:46)
[2019-01-05] MEDS ORDERED: FERR300L PEG (14:46)
[2019-01-05] MEDS ORDERED: SUCR1ORA5 PEG (14:46)
[2019-01-05] MEDS ORDERED: LACT1CAP8 PEG (14:46)
[2019-01-05] MEDS ORDERED: THIA100T66 PEG (14:46)
[2019-01-05] MEDS ORDERED: SCOP1PAT11 TD (14:46)
--- NOTE | 2019-01-05 14:51 | Diagnostic Imaging Report ---
EXAMINATION: Portable erect AP chest at 02:21 p.m. INDICATION: Shortness of breath. FINDINGS: The heart is mildly enlarged and similar to the prior exam of 11/16/2018. The previous study did show that both lung bases were obscured by pneumonia/atelectasis and fluid. On this exam, both lungs appear much better aerated. There is only minimal if any residual atelectasis/infiltrate and fluid still present. The interstitial densities in both lungs are somewhat prominent, but there is no evidence for overt failure. The mediastinum is not widened. The osseous structures are intact. Numerous healed rib fractures are again seen on the left. The tracheostomy tube seen previously is again evident and remains in good position. The left-sided PICC line noted on the prior exam has been removed. The orthopedic hardware overlying the cervicothoracic junction is unchanged. IMPRESSION: The appearance of the chest has improved considerably since the prior exam as both lungs are much better aerated. There is still cardiomegaly, but there is little if any residual atelectasis/infiltrate and fluid still present. Clinical follow-up is recommended. Dictated by: Dictated on workstation # [id number]
[2019-01-05] MEDS ORDERED: DEXT50IV12 IV (14:58)
--- NOTE | 2019-01-05 14:59 | NUR ---
UPDATED MED REC WITH THE ORDERS MARKED YES ON SEP FROM [facility]. Addendum: 01/06/19 at 0928 by VERONICA ROSS [facility] REMOVED THE ORDERS FROM [facility] FROM THE MED REC AT THIS TIME. I UPDATED THE MED REC TO THE MEDICATIONS THE PATIENT WAS TAKING PRIOR TO ADMISSION TO [facility] TO THE BEST OF MY ABILITY. I USED THE EXT MED HX AND THE LIST OF MEDICATIONS THE PATIENT REPORTED TAKING UPON ADMISSION HERE AT [facility] IN OCTOBER TO ICU.
--- NOTE | 2019-01-05 15:14 | Pulmonary Consultation ---
History of Present Illness History of Present Illness Date of Consultation 01/05/19 15:09 Time Seen by Provider: 15:09 Date of Admission History of Present Illness 78yo with hx of severe GIB resulting in recent hospitalization here s/p surgery and mechanical ventilation. Pt was transferred to [place] after tracheostomy. Pt is returning for rehabilitation in inpt. 3 wks was required to wean pt off of ventilator. Pt now is much improved she still has a tracheostomy with speaking valve in place. I am consulted for pulmonary management. Allergies and Home Medications Allergies Uncoded Allergies: UNKNOWN BLADDER MED (Allergy, Unknown, 10/03/18) none (Adverse Reaction, Unknown, 08/20/14) Home Medications Acetaminophen 650 Mg Tablet.er, 650 MG PO Q6H PRN for PAIN-MILD, (Reported) Atenolol 25 Mg Tablet, 25 MG PO HS, (Reported) Calcium Carbonate/Vitamin D3 1 Each Tablet, 2 TAB PO DAILY, (Reported) Cholecalciferol (Vitamin D3) 1,000 Unit Capsule, 2,000 UNIT PO DAILY, (Reported) Folic Acid 1 Mg Tablet, 1 MG PO DAILY, (Reported) Methotrexate Sodium 2.5 Mg Tablet, 15 MG PO Fr, (Reported) TAKES 6 (2.5MG) TABLETS Multivitamin 1 Each Tablet, 1 TAB PO DAILY, (Reported) Ranitidine HCl 150 Mg Tablet, 150 MG PO BID, (Reported) Tramadol HCl 50 Mg Tablet, 100 MG PO Q6H PRN for PAIN-MODERATE, (Reported) Past Zujnyju-Xaubkn-Ppvlhn Hx Patient Social History Alcohol Use: Denies Use Recreational Drug Use: No 2nd Hand Smoke Exposure: No Recent Foreign Travel: No Contact w/Someone Who Travel: No Recent Infectious Disease Expo: No Recent Hopitalizations: No Immunizations Up To Date Tetanus Booster (TDap): More than 5yrs PED Vaccines UTD: No Date of Pneumonia Vaccine: Aug 20, 2013 Date of Influenza Vaccine: Apr 19, 2014 Seasonal Allergies Seasonal Allergies: No Past Medical History Surgeries: Yes (RIGHT HIP REPLACEMENT, NECK SURGERY, EXPLORATORY ABD SURGERY) Joint Replacement Respiratory: Yes (RESPIRATORY DISTRESS WITH CURRENT TRACH) Pneumonia Currently Using CPAP: No Currently Using BIPAP: No Cardiac: Yes Neurological: No Dementia Reproductive Disorders: No Female Reproductive Disorders: Denies Sexually Transmitted Disease: No HIV/AIDS: No Genitourinary: Yes UTI-Chronic Gastrointestinal: Yes Gastroesophageal Reflux, Gastrointestinal Bleed Musculoskeletal: Yes Degenerate Disk Disease, Rheumatoid Arthritis Endocrine: Yes Diabetes, Non-Insulin dep HEENT: Yes Cataract Loss of Vision: Denies Hearing Impairment: Denies Cancer: No Psychosocial: No Integumentary: No Blood Disorders: No Adverse Reaction/Blood Tranf: No Family Medical History Patient reports no known family medical history. Review of Systems Time Seen by Provider: 10:31 Constitutional: Weakness, Malaise; No: Fever, Chills, Sweats, Other Eyes: No: Pain, Vision change, Conjunctivae inflammation, Eyelid inflammation, Other, Redness ENT: No: Ear pain, Ear discharge, Nose pain, Nose discharge, Nose congestion, Mouth pain, Mouth swelling, Throat pain, Throat swelling, Other Respiratory: Cough, Shortness of breath, Wheezing, Sputum; No: Hemoptysis Cardiovascular: Paroxysmal Noc. Dyspnea Sepsis Event Evaluation Height, Weight, BMI Height: 5'2.00" Weight: 114lbs. 0.0oz. [id number]; 20.9 BMI Method:Actual Exam Exam Vital Signs Date Time Temp Pulse Resp B/P (MAP) Pulse Ox O2 Delivery O2 Flow Rate FiO2 01/05/19 11:15 Trach Collar 8.50 01/05/19 10:30 98.1 67 20 116/66 (83) 97 Trach Collar Height & Weight Height: 5'2.00" Weight: 114lbs. 0.0oz. 51.018128tk; 20.9 BMI Method:Actual General Appearance: No Apparent Distress, Anxious HEENT: PERRL/EOMI, Pharynx Normal Neck: Full Range of Motion, Non Tender, Supple Respiratory: No Accessory Muscle Use, No Respiratory Distress, Crackles, Decreased Breath Sounds Cardiovascular: Regular Rate, Rhythm, No Edema, No Gallop Capillary Refill: Less Than 3 Seconds Gastrointestinal: normal bowel sounds, non tender, soft Extremity: Normal Capillary Refill, Normal Inspection, No Pedal Edema Neurologic/Psychiatric: Alert, Oriented x3 Skin: Normal Color, Warm/Dry Lymphatic: No Adenopathy Results Lab Laboratory Tests 01/05/19 13:32 Assessment/Plan Assessment/Plan Chronic respiratory failure s/p tracheostomy -PT is not ready for discontinuation of tracheostomy yet. -SVNS -CHeck labs and CXR -Monitor Hyperkalemia -Hold KCL -Give 30grms of Kayexalate and repeat AM labs Anemia with hx of GIB -Monitor -Repeat labs in AM ARJUN MEADE DO Jan 05, 2019 15:14
[2019-01-05] MEDS ORDERED: CHLORASEPTIC SPRAY 177 ML LIQUID MC PRN (15:15)
[2019-01-05] MEDS ORDERED: NON-FORMULARY MEDICATION 1 EA EA (Hydrocodone/Acetaminophen (Hydrocodone-Acetamin 7.5-325) PEG PRN (15:15)
[2019-01-05] MEDS ORDERED: PROTEASE PEG PRN (15:15)
[2019-01-05] MEDS ORDERED: SCOPOLAMINE TD SCH (15:15)
[2019-01-05] MEDS ORDERED: [UNRECOGNIZED DRUG - OTHER] PEG PRN (15:15)
[2019-01-05] MEDS ORDERED: AMYLASE PEG PRN (15:15)
[2019-01-05] MEDS ORDERED: D5W 250 ML (EXCEL) BAG IV PRN (15:15)
[2019-01-05] MEDS ORDERED: ACETAMINOPHEN 325 MG TABLET PEG PRN (15:15)
[2019-01-05] MEDS ORDERED: MIDODRINE 10 MG (PROAMATINE) TAB PO PRN (15:15)
[2019-01-05] MEDS ORDERED: RT-ALBUTEROL SULF 2.5 MG/3 ML PRE-MIX VIAL IH PRN (15:15)
[2019-01-05] MEDS ORDERED: NON-FORMULARY MEDICATION 1 EA EA (Sucralfate (Carafate) 1 GM) PEG SCH (15:15)
[2019-01-05] MEDS ORDERED: SODIUM BICARBONATE 325 MG PEG PRN (15:15)
[2019-01-05] MEDS ORDERED: LIPASE PEG PRN (15:15)
[2019-01-05] MEDS ORDERED: HYDROcodone/APAP 7.5MG-325 MG/15 ML (LORTAB) UDC PO PRN (15:30)
[2019-01-05] MEDS ORDERED: DEXTROSE 50% 50 ML (IMS) SYR IV PRN (15:30)
[2019-01-05] MEDS ORDERED: SOD POLYSTERENE 15 GM/60 ML (KAYEXALATE) UNIT DOSE PR NR (15:30)
[2019-01-05] MEDS ORDERED: SODIUM BICARBONATE 650 MG TABLET (NON-FORMULARY) PEG PRN (15:45)
[2019-01-05] MEDS ORDERED: LIPASE/AMYLASE/PROTEASE (PANCRELIPASE) 5,000 UNITS CAP PEG PRN (15:45)
[2019-01-05] MEDS ORDERED: INSULIN LISPRO 5 UNIT SQ SCH (16:30)
[2019-01-05] MEDS: MAGNESIUM 1 GM/100 ML IVPB 100 ML IV SCH ×2 (16:50→18:07)
[2019-01-05] MEDS: inSUlin ASPART (NovoLOG) 1 UNIT/0.01 ML (CHARGE PER UNIT) SC SCH ×2 (16:56→21:21)
[2019-01-05] MEDS ORDERED: FERROUS SULFATE ORAL LIQUID 44 MG/ML ML PEG SCH (17:00)
[2019-01-05] MEDS ORDERED: NON-FORMULARY MEDICATION 1 EA EA (Enoxaparin Sodium (Lovenox) 40 MG) SQ SCH (17:00)
--- NOTE | 2019-01-05 17:00 | NUR ---
DR. SUÁREZ NOTIFIED THAT PHARMACY SAYS MIDODRINE, REVATIO, AND THEOPHYLLINE ARE NONFORMULARY AND NO SUBSTITUTES.
[2019-01-05] MEDS: SUCRALFATE 1 GM (CARAFATE) TAB PEG SCH (18:08)
[2019-01-05] MEDS: ENOXAPARIN 40 MG/0.4 ML (LOVENOX) SYR SC SCH (18:08)
[2019-01-05] MEDS: NIACIN 500 MG TABLET PO SCH (18:09)
[2019-01-05] MEDS: FERROUS SULFATE ORAL LIQUID 44 MG/ML ML PEG SCH (18:09)
[2019-01-05] MEDS ORDERED: SOD POLYSTERENE 15 GM/60 ML (KAYEXALATE) UNIT DOSE PEG NR (18:15)
[2019-01-05] MEDS: HYDROcodone/APAP 7.5MG-325 MG/15 ML (LORTAB) UDC PEG PRN (18:22)
[2019-01-05 18:24] VITALS: BP 117/82
--- NOTE | 2019-01-05 18:30 | NUR ---
TUBE FEEDING OF GLUCERNA STARTED AT 70 CC/HR. NO RESIDUAL PRIOR. ALL MEDS GIVEN THROUGH PEG. NURSE AIDE STAYED WITH HER WHILE EATING DINNER TRAY. DID FEED SELF SOME, BUT ALSO NEEDED ASSISTANCE.
[2019-01-05] MEDS: SENNA W/DOCUSATE (SENOKOT S) TABLET PO SCH (20:47)
[2019-01-05] MEDS: THIAMINE 100 MG (VITAMIN B-1) TAB PEG SCH (20:47)
[2019-01-05] MEDS: OMEGA 3 (FISH OIL) 1000 MG CAP PO SCH (20:48)
[2019-01-05] MEDS: meTOprolol TARTRATE 25 MG (LOPRESSOR) TABLET PEG SCH (20:48)
[2019-01-05] MEDS: LACTOBACILLUS ACIDOPHILUS (PROBIOTIC) CAPSULE PEG SCH (20:48)
[2019-01-05] MEDS ORDERED: OMEGA ACID ETHYL ESTERS PEG SCH (21:00)
[2019-01-05] MEDS ORDERED: NIACIN 500 MG PEG SCH (21:00)
[2019-01-05] MEDS ORDERED: FERROUS SULFATE 300 MG PEG SCH (21:00)
[2019-01-05] MEDS ORDERED: NON-FORMULARY MEDICATION 1 EA EA (Lactobacillus Acidophilus (Acidophilus) 1 CAP) PEG SCH (21:00)
[2019-01-05] MEDS ORDERED: THIAMINE HCL 100 MG PEG SCH (21:00)
[2019-01-05] MEDS: LIDOCAINE PATCH REMOVAL TP SCH (21:15)
--- NOTE | 2019-01-05 21:36 | PM&R H&P / Post Admit Assess ---
History of Present Illness HPI/Chief Complaint Chief complaint: Critical illness myopathy HPI: This is a 78yoWF known to me from ICU 9 hospital stay after a massive GI b leed requiring surgery by Dr. Talamantes who was ultimately transferred to [place] on a ventilator, took three weeks to wean off, had trach placed peg tube for tube feedings and has resulted in severe weakness in need of inpatient rehab, she is doing very well, having a speaking valve on her trach and is not capped at this point because she is so fatigued. Dr. Ding is the ortho assistant who is working with her and is not comfortable capping the trach right now. She is eating 25-50% of the meals, she is receiving nocturnal tube feedings to supplement and overall she has severe weakness and will ultimately return home with her to continue recovery after inpatient rehab works on her Kik. Source: patient, family, RN/MD, old records Exam Limitations: no limitations Date Seen 01/05/19 Time Seen by a Provider: 17:15 Attending Physician Charito Suárez John M MD Referring Physician Date of Admission Jan 05, 2019 at 10:35 Home Medications & Allergies Home Medications Reviewed patient Home Medication Reconciliation performed by pharmacy medication reconciliations fire protection equipment technician and/or nursing. Patients Allergies have been reviewed. Allergies Allergies Uncoded Allergies UNKNOWN BLADDER MED ( Allergy, Unknown, 10/03/18) none ( Adverse Reaction, Unknown, 08/20/14) Past Rkldmiu-Cworhi-Wxtoac Hx Past Med/Social Hx: Reviewed Nursing Past Med/Soc Hx, Reviewed and Corrections made Patient Social History Marrital Status: Employed/Student: retired Alcohol Use: Denies Use Recreational Drug Use: No Smoking Status: Never a Smoker 2nd Hand Smoke Exposure: No Physical Abuse Screen: No Sexual Abuse: No Recent Foreign Travel: No Contact w/other who traveled: No Recent Hopitalizations: No Recent Infectious Disease Expo: No Immunizations Up To Date Tetanus Booster (TDap): More than 5yrs Pediatric: No Date of Pneumonia Vaccine: Aug 20, 2013 Date of Influenza Vaccine: Apr 19, 2014 Seasonal Allergies Seasonal Allergies: No Past Medical History Surgeries: Joint Replacement Currently Using CPAP: No Currently Using BIPAP: No Neurological: Dementia Reproductive: No Sexually Transmitted Disease: No HIV/AIDS: No Female Reproductive Disorders: Denies Genitourinary: UTI-Chronic Gastrointestinal: Gastroesophageal Reflux, Gastrointestinal Bleed Musculoskeletal: Degenerate Disk Disease, Rheumatoid Arthritis Endocrine: Diabetes, Non-Insulin dep HEENT: Cataract Loss of Vision: Denies Hearing Impairment: Denies History of Blood Disorders: No Adverse Reaction to Blood Ware: No Family History Patient reports no known family medical history. Review of Systems Constitutional: see HPI, dizziness, malaise, weakness EENTM: no symptoms reported Respiratory: no symptoms reported Cardiovascular: no symptoms reported Gastrointestinal: no symptoms reported Genitourinary: no symptoms reported Musculoskeletal: no symptoms reported Skin: no symptoms reported Psychiatric/Neurological: Depressed All Other Systems Reviewed Negative Unless Noted: Yes Physical Exam Exam Vital Signs Vital Signs Date Time Temp Pulse Resp B/P (MAP) Pulse Ox O2 Delivery O2 Flow Rate FiO2 01/05/19 18:24 98.6 98 22 117/82 (94) 99 Trach Collar 01/05/19 15:19 6.00 Capillary Refill : General Appearance: No Apparent Distress, WD/WN, Chronically ill, Thin HEENT: PERRL/EOMI, Normal ENT Inspection, Pharynx Normal, Moist Mucous Membrane s, Other (trach in place) Neck: Full Range of Motion, Normal Inspection, Non Tender, Supple Respiratory: Chest Non Tender, Lungs Clear, No Accessory Muscle Use, No Respiratory Distress, Decreased Breath Sounds Cardiovascular: Regular Rate, Rhythm, No Edema, No Gallop, No JVD, No Murmur Gastrointestinal: Normal Bowel Sounds, No Organomegaly, No Pulsatile Mass, Non Tender, Soft, Other (PEG in place) Back: Normal Inspection, No CVA Tenderness, No Vertebral Tenderness Extremity: Normal Capillary Refill, Normal Inspection, Normal Range of Motion, Non Tender, No Calf Tenderness, No Pedal Edema Neurologic/Psychiatric: Alert, Oriented x3, Normal Mood/Affect, neck band setter II-XII Norm as Tested, Motor Weakness (3/5 all extremities) Skin: Normal Color, Warm/Dry Lymphatic: No Adenopathy Results Results/Procedures Labs Laboratory Tests 01/05/19 13:32 Patient resulted labs reviewed. Assessment/Plan Assessment and Plan Assess & Plan/Chief Complaint Assessment: Myopathy (1) s/p Ventilator dependence Status: Acute (2) s/p Respiratory failure Status: Acute (3) Anemia due to acute blood loss Status: Acute (4) GERD (gastroesophageal reflux disease) Status: Chronic (5) Dementia Status: Chronic (6) s/p Acute GI bleeding Status: Acute (7) Weakness Status: Acute (8) s/p Transfusion of blood during current hospitalization Status: Acute (9) h/o Pyloric ulcer Status: Acute (10) Trach in place (11) PEG in place with TF at night Plan: Monitor closely TF at night Continue all meds as ordered Check labs in am Appreciate Dr Kierra Selby ulcer consulting Dr Javier (1) Myopathy (2) Tracheostomy in place (3) PEG (percutaneous endoscopic gastrostomy) status (4) Hyperkalemia (5) Pyloric ulcer (6) Dementia (7) Transfusion history (8) Weakness Post Admission Physician Asses Date seen by provider: Jan 05, 2019 Time seen by provider: 17:15 Admisison Dx: (1) Myopathy The preadmission screen agrees with the post admission assessment that the patient is a good candidate for inpatient rehabilitation. The patient will have a comprehensive program of inpatient rehabilitation with a goal of maximizing level of functional independence prior to discharge home with family. The patient will have PT/OT ninety minutes per day, each discipline, five days a week for gait, strengthening, conditioning, balance, ADLs, any patient/family/caregiver training as necessary. Speech therapy to do cognitive assessment and treat as indicated. Rehabilitation nursing to assist with bowel, bladder, skin, wound care, medication administration, pain management. Barrel Washer to assist with discharge planning, community reentry. SCD's for DVT prophylaxis. She appears to be well motivated to participate in three hours of therapy a day. She should be able to tolerate three hours of therapy a day from a medical standpoint. She should benefit from the three hours of therapy a day. She has a reasonable discharge plan, reasonable discharge rehabilitation goals and a supportive family. She has various comorbidities that need to be closely monitored with medications and treatments adjusted on a daily basis as needed. These include: see list Barriers to discharge for this patient who had been independent prior to this are for her to be modified independent to supervision for ADLs and mobility skills prior to discharge home with family, so as to lessen the burden of the caregivers. Risks for this patient include: 1. Fall 2. Fracture 3. DVT 4. Pulmonary embolism 5. Wound infection 6. Skin breakdown 7. Contractures 8. Poorly controlled pain 9. Urinary retention 10. UTI 11. Respiratory infection 12. Aspiration Estimated Length of Stay: 14 days Prognosis: Rehab prognosis appears good for goal of discharge home with family modified independent to supervision for ADLs and mobility skills. CHARITO SUÁREZ DO Jan 05, 2019 21:36
[2019-01-06] MEDS: SUCRALFATE 1 GM (CARAFATE) TAB PEG SCH ×4 (00:15→17:32)
[2019-01-06 05:45] LABS: HEMOGLOBIN 9.1 G/DL (11.5-16.0); MEAN PLATELET VOLUME 8.6 FL (7.4-10.4); RED CELL DISTRIBUTION WIDTH 16.5 % (10.0-14.5); WHITE BLOOD COUNT 7.8 10^3/uL (4.3-11.0)
[2019-01-06 06:25] VITALS: BP 129/77
[2019-01-06] MEDS: inSUlin ASPART (NovoLOG) 1 UNIT/0.01 ML (CHARGE PER UNIT) SC SCH ×4 (06:32→22:18)
[2019-01-06] MEDS: FERROUS SULFATE ORAL LIQUID 44 MG/ML ML PEG SCH ×2 (06:32→17:32)
[2019-01-06] MEDS: NIACIN 500 MG TABLET PO SCH ×2 (06:32→17:32)
[2019-01-06] MEDS: PANTOPRAZOLE 2 MG/ML LIQUID 200 ML (PROTONIX) PEG SCH ×3 (06:43)
--- NOTE | 2019-01-06 06:52 | Pulmonary Progress Note ---
Subjective Time Seen by a Provider: 10:38 Subjective/Events-last exam No complications noted. Sepsis Event Evaluation Height, Weight, BMI Height: 5'2.00" Weight: 114lbs. 0.0oz. 51.143227ri; 20.9 BMI Method:Actual Exam Exam Vital Signs Date Time Temp Pulse Resp B/P (MAP) Pulse Ox O2 Delivery O2 Flow Rate FiO2 01/06/19 06:25 98.9 108 16 129/77 (94) 97 Trach Collar 01/05/19 21:00 99 Trach Collar 6.00 01/05/19 18:24 98.6 98 22 117/82 (94) 99 Trach Collar 01/05/19 15:19 95 Trach Collar 6.00 01/05/19 11:15 Trach Collar 8.50 01/05/19 10:30 98.1 67 20 116/66 (83) 97 Trach Collar I & O 01/06/19 07:00 Intake Total 600 ml Balance 600 ml Height & Weight Height: 5'2.00" Weight: 114lbs. 0.0oz. 51.330668il; 20.9 BMI Method:Actual General Appearance: No Apparent Distress, WD/WN, Chronically ill, Thin HEENT: PERRL/EOMI, Normal ENT Inspection, Pharynx Normal, Moist Mucous Membranes, Other (trach in place) Neck: Full Range of Motion, Normal Inspection, Non Tender, Supple Respiratory: Chest Non Tender, Lungs Clear, No Accessory Muscle Use, No Respiratory Distress, Decreased Breath Sounds Cardiovascular: Regular Rate, Rhythm, No Edema, No Gallop, No JVD, No Murmur Extremity: Normal Capillary Refill, Normal Inspection, Normal Range of Motion, Non Tender, No Calf Tenderness, No Pedal Edema Neurologic/Psychiatric: Alert, Oriented x3, Normal Mood/Affect, coremaker bench II-XII Norm as Tested, Motor Weakness (3/5 all extremities) Skin: Normal Color, Warm/Dry Lymphatic: No Adenopathy Results Lab Laboratory Tests 01/05/19 13:32 01/06/19 05:31 Assessment/Plan Assessment/Plan Chronic respiratory failure s/p tracheostomy -SVNS -Repeat labs -Monitor Hyperkalemia -Hold KCL -Give 30grms of Kayexalate and repeat AM labs Anemia with hx of GIB -Monitor -Repeat labs in AM ARJUN MEADE DO Jan 06, 2019 06:51
[2019-01-06 07:10] LABS: BUN/CREATININE RATIO 34; CALCIUM 9.5 MG/DL (8.5-10.1); CARBON DIOXIDE 25 MMOL/L (21-32); CHLORIDE 100 MMOL/L (98-107); CREATININE SERUM 0.65 MG/DL (0.60-1.30); GFR ESTIMATED > 60; GLUCOSE 177 MG/DL (70-105); PHOSPHORUS 3.5 MG/DL (2.3-4.7); POTASSIUM 4.3 MMOL/L (3.6-5.0); SODIUM 137 MMOL/L (135-145)
[2019-01-06] MEDS ORDERED: NON-FORMULARY MEDICATION 1 EA EA (Potassium Chloride 40 MEQ) PEG SCH (09:00)
[2019-01-06] MEDS ORDERED: NON-FORMULARY MEDICATION 1 EA EA (Lansoprazole (Prevacid) 30 MG) PEG SCH (09:00)
[2019-01-06] MEDS ORDERED: LIDOCAINE TP SCH (09:00)
[2019-01-06] MEDS ORDERED: THEOPHYLLINE ANHYDROUS 200 MG PEG SCH (09:00)
[2019-01-06] MEDS ORDERED: ATEN25TA PO (09:25)
[2019-01-06] MEDS ORDERED: MULT1TAB69 PO (09:25)
[2019-01-06] MEDS ORDERED: CALC-654 PO (09:25)
[2019-01-06] MEDS ORDERED: RANI150T11 PO (09:25)
[2019-01-06] MEDS ORDERED: CHOL10007 PO (09:25)
[2019-01-06] MEDS ORDERED: METH2.5T PO (09:25)
[2019-01-06] MEDS ORDERED: ACET-2650 PO (09:25)
[2019-01-06] MEDS ORDERED: TRAM50TA2 PO (09:25)
[2019-01-06] MEDS: FOLIC ACID 1 MG TAB PO SCH (09:46)
[2019-01-06] MEDS: ASCORBIC ACID (VIT C) 500 MG TABLET PEG SCH (09:46)
[2019-01-06] MEDS: OMEGA 3 (FISH OIL) 1000 MG CAP PO SCH ×2 (09:46→21:56)
[2019-01-06] MEDS: meTOprolol TARTRATE 25 MG (LOPRESSOR) TABLET PEG SCH ×2 (09:46→21:57)
[2019-01-06] MEDS: LIDOCAINE 4% (SALONPAS) PATCH TOP SCH (09:46)
[2019-01-06] MEDS: SCOPOLAMINE PATCH REMOVAL TP SCH (09:47)
[2019-01-06] MEDS: ASPIRIN E.C. 325 MG (ECOTRIN) TABLET PO SCH (09:47)
[2019-01-06] MEDS: LACTOBACILLUS ACIDOPHILUS (PROBIOTIC) CAPSULE PEG SCH ×2 (09:47→21:57)
[2019-01-06] MEDS: MULTIVIT W/MINERALS TAB (THERAGRAN M) PEG SCH (09:47)
[2019-01-06] MEDS: THIAMINE 100 MG (VITAMIN B-1) TAB PEG SCH ×2 (09:47→21:58)
[2019-01-06] MEDS: SENNA W/DOCUSATE (SENOKOT S) TABLET PO SCH ×2 (09:48→21:45)
--- NOTE | 2019-01-06 11:23 | PM&R Progress Note ---
Subjective HPI/CC On Admission Date Seen by Provider: Jan 06, 2019 Time Seen by Provider: 09:30 Chief complaint: Critical illness myopathy HPI: This is a 78yoWF known to me from ICU 9 hospital stay after a massive GI bleed requiring surgery by Dr. Talamantes who was ultimately transferred to [place] on a ventilator, took three weeks to wean off, had trach placed peg tube for tube feedings and has resulted in severe weakness in need of inpatient rehab, she is doing very well, having a speaking valve on her trach and is not capped at this point because she is so fatigued. Dr. Ding is the golf club maker who is working with her and is not comfortable capping the trach right now. She is eating 25-50% of the meals, she is receiving nocturnal tube feedings to supplement and overall she has severe weakness and will ultimately return home with her to continue recovery after inpatient rehab works on her strength. Subjective/Events-last exam Patient doing very well Appears to be depressed Psychiatric evaluation will be ordered Magnesium good at 4.3 after Kayexalate and magnesium is 2.0 Speech therapy will be working with the patient like tube feedings at night are tolerated well and she is eating better through the day Left hip decubitus ulcer and right calf wound is being managed by Dr. Javier Conferred with RN Reviewed therapy notes Review of Systems General: Fatigue Neurological: Weakness Objective Exam Vital Signs Vital Signs Date Time Temp Pulse Resp B/P (MAP) Pulse Ox O2 Delivery O2 Flow Rate FiO2 01/06/19 09:00 99 Trach Collar 6.00 01/06/19 06:25 98.9 108 16 129/77 (94) Capillary Refill : General Appearance: No Apparent Distress, WD/WN, Chronically ill, Thin HEENT: PERRL/EOMI, Normal ENT Inspection, Pharynx Normal, Moist Mucous Membranes, Other Neck: Full Range of Motion, Normal Inspection, Non Tender, Supple Respiratory: Chest Non Tender, Lungs Clear, No Accessory Muscle Use, No Respiratory Distress, Decreased Breath Sounds Cardiovascular: Regular Rate, Rhythm, No Edema, No Gallop, No JVD, No Murmur Gastrointestinal: Normal Bowel Sounds, No Organomegaly, No Pulsatile Mass, Non Tender, Soft, Other (PEG in place) Back: Normal Inspection, No CVA Tenderness, No Vertebral Tenderness Extremity: Normal Capillary Refill, Normal Inspection, Normal Range of Motion, Non Tender, No Calf Tenderness, No Pedal Edema Neurologic/Psychiatric: Alert, Oriented x3, Normal Mood/Affect, traffic expert II-XII Norm as Tested, Motor Weakness Skin: Normal Color, Warm/Dry Lymphatic: No Adenopathy Results/Procedures Lab Laboratory Tests 01/05/19 13:32 01/06/19 05:31 Patient resulted labs reviewed. FIM Transfers Therapy Code Descriptions/Definitions Functional [place] Measure: 0=Not Assessed/NA 4=Minimal Assistance 1=Total Assistance 5=Supervision or Setup 2=Maximal Assistance 6=Modified [place] 3=Moderate Assistance 7=Complete [place] Therapy Quality Codes: 6 Independent with activity with or without an assistive device 5 Patient requires set up or clean up by helper. Patient completes activity by themselves 4 Supervision or touching assist (CGA). [place] provide cues , steadying assist 3 The helper provides less than half the effort to complete the activity 2 The helper provides more than half the effort to complete the activity 1 Dependent. The helper does all the effort to complete an activity 7 Patient refused to complete or attempt activity 9 The patient did not perform the activity before the current illness or injury 88 Not attempted due to Medical conditions or safety concerns Transfers (B, C, W/C) (FIM): 1 (radha lift ) Scootin (assist of 2) Rollin Roll Left to Right (QC): 2 Sit to Lying (QC): 1 Sit to Stand (QC): 1 Chair/Cuq-pv-Dqexv Xfer(QC): 1 Car Transfer (QC): 88 Gait Training Does the Patient Walk?: No and Walking Goal IS indicated Gait (FIM): 0 (unable to stand at this time. ) Distance (FIM): 0=does not occure Walk 10 feet (QC): 88 Walk 50 ft with 2 Turns(QC): 88 Walk 150 ft (QC): 88 Walking 10ft/uneven surface-QC: 88 Wheelchair Training Does the Pt Use a Wheelchair?: No Stair Training Stairs (FIM): 0 1 Step (curb) (QC): 88 4 Steps (QC): 88 12 Steps (QC): 88 Balance Picking up an Object (QC): 88 ADL-Treatment Feedin (secondary to tremmors ) Eating (QC): 1 Groomin Oral Hygiene (QC): 2 Bathin (required assist with 7/10 body parts ) Bathing Location: L Arm, R Arm, Chest Shower/Bathe Self (QC): 1 Upper Extremity Dressin (required TA to apply jacket. ) Upper Body Dressing (QC): 1 Lower Extremity Dressin (dep. for all LB activity) Lower Body Dressing (QC): 1 On/Off Footwear (QC): 1 Toiletin (radha lift ) Toileting Hygiene (QC): 1 Toilet/Commode Transfer: 1 (radha lift ) Toilet Transfer (QC): 1 (radha lift ) Shower: 0 (NT secodanry to safety. pt is radha lift ) Assessment/Plan Assessment and Plan Assess & Plan/Chief Complaint Assessment: Myopathy (1) s/p Ventilator dependence Status: Acute (2) s/p Respiratory failure Status: Acute (3) Anemia due to acute blood loss Status: Acute (4) GERD (gastroesophageal reflux disease) Status: Chronic (5) Dementia Status: Chronic (6) s/p Acute GI bleeding Status: Acute (7) Weakness Status: Acute (8) s/p Transfusion of blood during current hospitalization Status: Acute (9) h/o Pyloric ulcer Status: Acute (10) Trach in place (11) PEG in place with TF at night Plan: Monitor closely TF at night Continue all meds as ordered Reviewed labs Appreciate Dr Kierra Selby ulcer consulting Dr Javier (1) Myopathy (2) GERD (gastroesophageal reflux disease) (3) Ventilator dependence (4) Hyperkalemia (5) Dementia (6) Pyloric ulcer (7) Tracheostomy in place (8) Transfusion history BO SUÁREZ DO Jan 06, 2019 11:23
--- NOTE | 2019-01-06 11:58 | Physical Therapy Daily Note ---
PT Daily Note-Current Subjective Pt laying Supine in bed upon arrival. Pt agrees to PT/OT co-treat. Pain Location: No Pain Reported Mental Status Patient Orientation: Person, Place, Situation Attachments: Oxygen (2L during tx) Transfers Therapy Code Descriptions/Definitions Functional [place] Measure: 0=Not Assessed/NA 4=Minimal Assistance 1=Total Assistance 5=Supervision or Setup 2=Maximal Assistance 6=Modified [place] 3=Moderate Assistance 7=Complete [place] Therapy Quality Codes: 6 Independent with activity with or without an assistive device 5 Patient requires set up or clean up by helper. Patient completes activity by themselves 4 Supervision or touching assist (CGA). [place] provide cues , steadying assist 3 The helper provides less than half the effort to complete the activity 2 The helper provides more than half the effort to complete the activity 1 Dependent. The helper does all the effort to complete an activity 7 Patient refused to complete or attempt activity 9 The patient did not perform the activity before the current illness or injury 88 Not attempted due to Medical conditions or safety concerns Scootin Rollin Roll Left to Right (QC): 1 Supine to/from Sit: 1 Sit to/from Stand: 1 Sit to Lying (QC): 1 Sit to Stand (QC): 1 Chair/Ure-ln-Htwde Xfer(QC): 1 Bed to/from Chair: 1 Pt uses Dina at this time. Weight Bearing Right Lower Extremity: Right Full Weight Bearing Left Lower Extremity: Left Full Weight Bearing Gait Training Does the Patient Walk?: No and Walking Goal IS indicated Exercises Seated Therapy Exercises: Ankle pumps, Long arc quads, Hip flexion, Kicking activity Seated Reps: 15 Treatments PT/OT co-treat completed due to complexity of pt and requiring skills of two both disciplines for gain for TX session and safety of pt due to lack of strength at this time. pt required dina lift secondary to decrease truck contr ol an decrease safety with using SB at this time. pt transported to TX gym and transferred to Mat table( TA). while sitting EOB one therapist behind pt for truck control/ balance and second therapist in front of pt working on coordination/ sequencing. pt required MOD - TA to maintain static seated balance. pt complete straight / diagonal movement. noted decrease balance with arm movements required TA to maintain balance. pt then transferred back to w/c with TA and completed UE/ LE ROM ex to increase activity tolerance required MAX tactile cuing. pt education on functional use of SB. noted SB transfer noted completed this date secondary to overall weakness and safety of patient. PT worked on B LE strengthening through Seated EX and assistance with dynamic/ static Seated Balance & core strengthening as well as instruction for use of slide board for transfer. Slide board transfer not completed this date secondary to safety of patient. will attept to complete SB ransfer next TX session. .. OT worked UE placement/ sequencing and OT focused on movement during transfers and proper positioning. Pt seated in recliner resting at end of tx with all needs met, call light in hand Assessment Current Status: Fair Progress Pt requires frequent and extended RB due to decreased activity tolerance and fatigue. PT Short Term Goals Short Term Goals Time Frame: Jan 19, 2019 Transfers (B,C,W/C) (FIM): 3 Gait (FIM): 2 Distance (FIM): 0=315-03 ft Gait Assistive Device: FWW PT Long-Term Goals Technical Manager Goals PT Long-Term Goals Time Frame: Feb 02, 2019 Transfers (B,C,W/C) (FIM): 6 Sit to Lying (QC): 6 Lying-Sitting on Side/Bed(QC): 6 Sit to Stand (QC): 6 Rollin Roll Left to Right (QC): 6 Chair/Ujh-tu-Oezsb Xfer(QC): 6 Car Transfer (QC): 5 Does the Patient Walk: No and Walking Goal IS indicated Gait (FIM): 5 Gait distance (FIM): 0=594-32 ft Walk 10 feet (QC): 5 Walk 10ft-Uneven Surface(QC): 5 Walk 50ft with 2 Turns (QC): 5 Walk 150 ft (QC): 4 Gait Assistive Device: FWW Does the Pt use WC or Scooter?: No Stairs (FIM): 2 # of Steps: 4 1 Step (curb) (QC): 5 4 Steps (QC): 4 12 Steps (QC): 88 Picking up an Object (QC): 88 PT Plan Problem List Problem List: Activity Tolerance, Functional Strength, Safety, Balance, Transfer Treatment/Plan Treatment Plan: Continue Plan of Care Treatment Plan: Bed Mobility, Education, Functional Activity Ralph, Functional Strength, Group Therapy, Gait, Safety, Therapeutic Exercise, Transfers Treatment Duration: Feb 02, 2019 Frequency: At least 5 of 7 days/Wk (IRF) Estimated Hrs Per Day: 1.5 hours per day Patient and/or Family Agrees t: Yes Safety Risks/Education Patient Education: Transfer Techniques, Correct Positioning, Safety Issues Teaching Recipient: Patient Teaching Methods: Discussion Response to Teaching: Verbalize Understanding Time/GCodes Time In: 1015 Time Out: 1140 Total Billed Treatment Time: 85 Total Billed Treatment 1, FA x3 (45m) & EX x3 (40m) G Codes Necessary: PIERRE Arboleda SAMPLE PASTER Jan 06, 2019 11:58
[2019-01-06] MEDS: SCOPOLAMINE 1.5 MG (TRANSDERM-SCOP) PATCH TOP SCH (12:54)
[2019-01-06] MEDS: SILDENAFIL 20 MG (REVATIO) TAB NON-FORMULARY PEG SCH ×2 (12:54→21:57)
[2019-01-06] MEDS: ROFLUMILAST 500 MCG TAB (DALIRESP) PEG SCH (13:16)
--- NOTE | 2019-01-06 13:49 | Occupational Ther Daily Note ---
OT Current Status-Daily Note Subjective pt laying in bed upon OT arrival. pt agreed to OT/ PT tx session with focus on increase UE/ LE use, static/ dyn sitting balance, functional transfers, and activity tolerance. pt reports 09/25 pian "all over" Mental Status/Objective Therapy Code Descriptions/Definitions Functional [place] Measure: 0=Not Assessed/NA 4=Minimal Assistance 1=Total Assistance 5=Supervision or Setup 2=Maximal Assistance 6=Modified R[place] 3=Moderate Assistance 7=Complete [place] Attachments: Oxygen (2L ) ADL-Treatment Therapy Code Descriptions/Definitions Functional [place] Measure: 0=Not Assessed/NA 4=Minimal Assistance 1=Total Assistance 5=Supervision or Setup 2=Maximal Assistance 6=Modified [place] 3=Moderate Assistance 7=Complete [place] Therapy Quality Codes: 6 Independent with activity with or without an assistive device 5 Patient requires set up or clean up by helper. Patient completes activity by themselves 4 Supervision or touching assist (CGA). [place] provide cues , steadying assist 3 The helper provides less than half the effort to complete the activity 2 The helper provides more than half the effort to complete the activity 1 Dependent. The helper does all the effort to complete an activity 7 Patient refused to complete or attempt activity 9 The patient did not perform the activity before the current illness or injury 88 Not attempted due to Medical conditions or safety concerns Transfers (B, C, W/C) (FIM): 1 Other Treatment PT/OT co-treat completed due to complexity of pt and requiring skills of two both disciplines for gain for TX session and safety of pt due to lack of strength at this time. pt required radha lift secondary to decrease truck control an decrease safety with using SB at this time. pt transported to TX gym and transferred to Mat table( TA). while sitting EOB one therapist behind pt for truck control/ balance and second therapist in front of pt working on coordination/ sequencing. pt required MOD - TA to maintain static seated balance. pt complete straight / diagonal movement. noted decrease balance with arm movements required TA to maintain balance. pt then transferred back to w/c with TA and completed UE/ LE ROM ex to increase activity tolerance required MAX tactile cuing. pt education on functional use of SB. noted SB transfer noted completed this date secondary to overall weakness and safety of patient. PT worked on B LE strengthening through Seated EX and assistance with dynamic/static Seated Balance & core strengthening as well as instruction for use of slide board for transfer. Slide board transfer not completed this date secondary to safety of patient. will attept to complete SB ransfer next TX session. .. OT worked UE placement/ sequencing and OT focused on movement during transfers and proper positioning. Pt seated in recliner resting at end of tx with all needs met, call light in hand. Education OT Patient Education: Energy conservation, Purpose of tx/functional activities, Reviewed precautions, Rehab process, Safety issues, Transfer techniques Teaching Recipient: Patient Teaching Methods: Demonstration, Discussion Response to Teaching: Verbalize Understanding, Return Demonstration OT Short Term Goals Short Term Goals Eating(FIM): 3 Grooming(FIM): 3 Bathing(FIM): 3 Upper Body Dressing(FIM): 3 Lower Body Dressing(FIM): 3 Toileting(FIM): 3 Transfers (B,C,W/C) (FIM): 3 Toilet/Commode Transfer(FIM): 3 Shower Transfer(FIM): 3 1=Demonstrate adherence to instructed precautions during ADL tasks. 2=Patient will verbalize/demonstrate understanding of assistive devices/modifications for ADL. 3=Patient will improve strength/tolerance for activity to enable patient to perform ADL's. OT Global Process Owner Goals Global Process Owner Goals Eating (FIM): 6 Eating (QC): 6 Groomin Oral Hygiene (QC): 6 Bathing(FIM): 5 Bathing Location: L Arm, R Arm, L Upper Leg, R Upper Leg, L Lower Leg (including foot), R Lower Leg (including foot), Chest, Abdomen, Buttocks, Perineal Area Shower/Bathe Self (QC): 5 Upper Body Dressing(FIM): 5 Upper Body Dressing (QC): 5 Lower Body Dressing(FIM): 5 Lower Body Dressing (QC): 5 On/Off Footwear (QC): 5 Toileting(FIM): 5 Toileting Hygiene (QC): 5 Transfers (B,C,W/C) (FIM): 5 Toilet/Commode Transfer(FIM): 5 Toilet/Commode Transfer (QC): 5 Shower Transfer(FIM): 5 Additional Goals: 1-Demonstrate ADL Tasks, 2-Verbalize Understanding, 3- ImproveStrength/Ralph 1=Demonstrate adherence to instructed precautions during ADL tasks. 2=Patient will verbalize/demonstrate understanding of assistive devices/modifications for ADL. 3=Patient will improve strength/tolerance for activity to enable patient to perform ADL's. OT Education/Plan Problem List/Assessment Assessment: Decreased Activ Tolerance, Decreased Safety Aware, Decreased UE Strength, Dependent Transfers, Edema, Impaired Bed Mobility, Impaired Cognition, Impaired Coordination, Impaired Funct Balance, Impaired I ADL's, Impaired Self- Care Skills pt presents with functional limitations affecting areas of ADLs and functional transfers with the above mention. pt would benefit from skilled OT services to address above mention deficits and to increase independence with ADLs and functional transfers. Discharge Recommendations Plan/Recommendations: Continue POC Barriers to Progress activity endurance/ tolerance Treatment Plan/Plan of Care Treatment,Training & Education: Yes Patient would benefit from OT for education, treatment and training to promote independence in ADL's, mobility, safety and/or upper extremity function for ADL's. Plan of Care: ADL Retraining, Caregiver Training, Cognitive Retraining, Concurrent Therapy, Functional Mobility, Group Exercise/Act as Ind, UE Funct Exercise/Act Treatment Duration: Feb 09, 2019 Frequency: At least 5 of 7 days/Wk (IRF) Estimated Hrs Per Day: 1 hour per day (60-90 minutes per day ) Agreement: Yes Rehab Potential: Fair Time/GCodes Start Time: 10:15 Stop Time: 11:40 Billed Treatment Time FA 85 minutes, 6 units ANGELY CHOUDHURY OT Jan 06, 2019 13:49
[2019-01-06] MEDS ORDERED: ROFLUMILAST 500 MCG PEG SCH (14:00)
--- NOTE | 2019-01-06 15:37 | ST Cognitive Linguistic Eval ---
Speech Evaluation-General Medical Diagnosis critical illness myopathy Onset Date: Jan 05, 2019 Therapy Diagnosis Therapy Diagnosis: Cognitive-communication Precautions Precautions/Isolations: Fall Prevention, Standard Precautions Referral Referring Physician: Dr. Mcdonald Medical History Pertinent Medical History: Atrial Fib, DM, Dementia, GERD Reviewed History: Yes Social History Current Living Status: Spouse Speech PLF-Current Status Prior Level of Function The patient lived at home with her and was independent with her daily needs. Subjective The patient was compliant with completion of the cognitive evaluation. Language Eval: Auditory Comprehends Simple Yes/No Ques: Functional Indent/Objects Multiple [place]: Functional Ident/Pics in Multiple [place]: Functional Follows 1-Step Commands: Functional Follows Complex Directions: Mild Follows General Conversations: Functional Language Eval: Verbal Language Completes Spontaneous Greeting: Functional Produces Auto, Serial Info: Functional Imitates Simple Words/Phrases: Functional Word Finding: Functional Requests Basic Needs: Functional States Basic Personal Info: Functional Expresses Complex Ideas: Functional Objective Cognitive Domain Attention: WNL Memory: WNL Problem Solving: Functional Executive Functions: WNL Visuospatial Skills: Mild Composite Severity Rating: Mild Clock Drawing Severity Rating: Mild Objective Formal/Standardized Tests [facility] Status ([facility]) Results The patient scored within normal range for cognitive function at 27/30. Oral Motor/Speech Production Within Functional Limits with trach Impression The patient is a pleasant 78 year old woman who was admitted to the ARU s/p GI bleed and debility. She also currently has a trach and a PEG tube. She will receive skilled services for medical monitoring and strengthening in order to safely return home. She completed the UMS at bedside with the normal range scored. She does not require skilled ST for cognitive function at this time. Communication/Social Cognition Comprehension: 7 Expression: 7 Social Interaction: 7 Problem Solvin Memory: 7 Speech Patient Assess Expression of Ideas/Wants: Expression (4) Understanding Verbal Content: Understands (4) Brief Interview-Mental Status: Yes Repetition of Three Words: Three (3) Temporal Orientation: Year: Correct (3) Temporal Orientation: Month: Accurate within 5 days(2) Temporal Orientation: Day: Correct (1) Recall : Wear to say "Sock": Yes,after cueing (1) Recall : Color: Yes, no cue required (2) Recall : Bed: Yes,after cueing (1) Memory/Recall Ability: Current season, That he or she is in a hsp/hsp unit Speech-Plan Patient/Family Goals Patient/Family Goals: The patient plans on returning home with her post rehab. Treatment Plan Speech Therapy Treatment Plan: Discontinue ST The patient will not receive skilled services for cognitive at this time. Treatment Duration: Jan 06, 2019 Frequency: 1 time per week Estimated Hrs Per Day: .25 hour per day Rehab Potential: Fair Barriers to Learning: Patient has a complex medical status Pt/Family Agrees to Plan: Yes Safety Risks/Education Teaching Recipient: Patient Teaching Methods: Discussion Response to Teaching: Verbalize Understanding Education Topics Provided: Utilization of the call light as needed. Time Speech Therapy Time In: 08:15 Speech Therapy Time Out: 08:30 Total Billed Time: 15 Billed Treatment Time 1, SHIRLENE Mcintosh Jan 06, 2019 15:37
--- NOTE | 2019-01-06 15:49 | ST Dysphagia Evaluation ---
Speech Evaluation-General Medical Diagnosis critical illness myopathy Onset Date: Jan 05, 2019 Therapy Diagnosis Therapy Diagnosis: Oropharyngeal Dysphagia Precautions Precautions: Aspiration Precautions/Isolations: Fall Prevention, Standard Precautions Referral Referring Physician: Dr. Mcdonald Medical History Pertinent Medical History: Atrial Fib, DM, Dementia, GERD Reviewed History: Yes Social History Current Living Status: Spouse Speech PLF/Current-Dysphagia Prior Level of Function The patient lived at home with her and was independent for her daily needs. Subjective The patient was pleasant and cooperative with the Bedside Dysphagia Evaluation. Cognitive Status Patient Orientation: Person, Place, Time, Situation Oral Motor Skills Dentition: Natural Current Food Consistancy: Mechanical Soft, Thin Liquids Ability to Follow Directions: Good Oral Expression Ability: No Impairment Tracheostomy Type: Uncuffed Other Contributing Factors: PEG Tube Voice Voice Phonatory-Based Quality: Breathy Voice Pitch: Moderately Low Voice Loudness: Mildly Soft/Quiet Face Facial Symmetry: Symmetrical Oral-Facial Assessment Oral-Facial Dentition: Normal Labial Seal Description: Normal Smile: Normal Lingual Protrusion: Normal Lingual ROM: Normal Lingual Strength: Normal Pharynx Velopharyngeal Move.: Volitional Dry Swallow: Yes Dysphagia Evaluation Consistencies Presented: Mechanical Soft, Pureed Patient exhibits normal oral phase. Pharyngeal Phase: Reduced Laryngeal Elevation Dietary Recommendations: Mechanical Soft Liquid Recommendations: Thin Patient was admitted to the ARU with these consistencies ordered which are the least restrictive at this time. Swallowing Precautions: Alternate Liquids/Solids, Decreased Bolus 1/2 Tsp, Liquids from Straw, Small Bites and Sips, Sitting Upright 90 Degrees, Sitting 90 Degrees 30 Post Intake Dysphagia Evaluation Summary The patient is a 78 year old female who was admitted to the ARU for rehab and medical monitoring in order to return home safely. She has been hospitalized for the past few weeks and is weak. She was noted to have swallowing deficits during the previous hospital admit at [place] and was placed on a Dysphagia II diet level at that time. She is also placed with a cuffless trach at this time as wel l as a PEG tube for night feedings. She was evaluated with the BDE today with results continuing on a Dysphagia II diet level with thin liquids. She was able to feed herself with minimal assist. No overt s/s of aspiration were noted. Barriers to Learning Patient has a very complex medical status. Speech Short Term Goals Short Term Goals Short Term Goals 1) The patient will tolerate the least restrictive diet level without s/s of aspiration at 90% with minimal verbal cues. 2) The patient will utilize compensatory strategies as trained for safe oral intake at 90% or greater with minimal verbal cues. Speech Electrical Engineering Drafting Officer Goals Penitentiary Goals The patient will maintain adequate nutrition/hydration via safe effective swallow function with PEG tube as needed. Speech-Plan Patient/Family Goals Patient/Family Goals: The patient plans on returning home with her post rehab. Treatment Plan Speech Therapy Treatment Plan: Continue Plan of Care The patient will receive skilled dysphagia therapy. Treatment Duration: Jan 13, 2019 Frequency: 5 times per week Estimated Hrs Per Day: .5 hour per day Rehab Potential: Fair Barriers to Learning: The patient has a complex medical status. Pt/Family Agrees to Plan: Yes Safety Risks/Education Teaching Recipient: Patient Teaching Methods: Demonstration, Discussion Response to Teaching: Verbalize Understanding, Return Demonstration Education Topics Provided: Safety of oral intake Time Speech Therapy Time In: 08:00 Speech Therapy Time Out: 08:15 Total Billed Time: 15 Billed Treatment Time 1, SHIRLENE Isaacs Jan 06, 2019 15:49
--- NOTE | 2019-01-06 16:15 | NUR ---
RADIOLOGY SCHEDULER attempted to meet with him to complete initial assessment; however she was sleeping. RADIOLOGY SCHEDULER then contacted patient's spouse to obtained assessment information. Patient has an extensive history of hospitalizations since September 2018. Patient admitted to ARU from [facility] with critical illness myopathy. Per timeline provided by patient's spouse, patient admitted to [facility] ER in mid September with UTI and broken ribs from a fall at home, was then transferred to [facility] for further intervention, following hospital discharge patient admitted to [facility] for approximately 3 weeks, upon scheduled discharge home, patient began vomiting blood and was found to have a GI bleed. At that time Dr. Talamantes performed surgery to repair discovered ulcers; consequently, patient entered into acute respiratory failure. Patient was then transferred to [facility] for vent weaning and now presents to ARU. Prior to hospitalization patient resided with spouse, Zac in a split-level home in [place], [place]. The home has 4 steps within the home with railing, patient will need the strength to navigate those upon discharge. Patient possesses a walker and cane at home; however, she primary utilized the walker. The home has that both a walk in shower and tub shower; however, patient preferred to sponge bathing. Primary contact identified as spouse, Zac at [phone] and son Gilmer at [phone]. Secondary contact identified as uncle, Maximiliano at [phone]. PCP identified as Dr. Jw Ruggiero. Insurance confirmed of Medicare and [employer] fidelity with prescription coverage and preferred pharmacy as [facility]. Patient spouse is familiar with ARU program as patient previously completed ARU stay in 2014. RADIOLOGY SCHEDULER reviewed typical ARU length of stay and weekly team conferences, Spouse expresses no concerns or questions at this time. RADIOLOGY SCHEDULER will continue to follow.
[2019-01-06] MEDS: ENOXAPARIN 40 MG/0.4 ML (LOVENOX) SYR SC SCH (17:32)
[2019-01-06 18:58] VITALS: BP 116/81
--- NOTE | 2019-01-06 19:38 | NUR ---
bedside report received from BHARATHI WELLS, assume care of pt
--- NOTE | 2019-01-06 21:00 | NUR ---
assessments & interventions completed, gastric residual 3ml, tube feeding fs Glucerna 1.5 infusing at 70ml/hr with 100ml water flush q 4hrs pt has had 2 liq brown stools
--- NOTE | 2019-01-06 21:40 | NUR ---
fsbs 164 NovoLog 2 units given, refused Senokot
[2019-01-06 21:50] VITALS: BP 121/73
[2019-01-06] MEDS: LIDOCAINE PATCH REMOVAL TP SCH (21:50)
[2019-01-06] MEDS: RT-ALBUTEROL/IPRATROPIUM 3 ML (DUONEB) VIAL IH PRN (23:01)
[2019-01-07] MEDS: SUCRALFATE 1 GM (CARAFATE) TAB PEG SCH ×4 (00:23→17:40)
[2019-01-07 05:57] LABS: MEAN PLATELET VOLUME 8.9 FL (7.4-10.4); RED CELL DISTRIBUTION WIDTH 16.7 % (10.0-14.5); WHITE BLOOD COUNT 7.7 10^3/uL (4.3-11.0)
--- NOTE | 2019-01-07 06:10 | NUR ---
peg tube flushed with crushed meds then stopped
[2019-01-07 06:27] VITALS: BP 107/69
--- NOTE | 2019-01-07 06:30 | NUR ---
RT called to switch pt over so can eat breakfast
[2019-01-07] MEDS: FERROUS SULFATE ORAL LIQUID 44 MG/ML ML PEG SCH ×2 (06:33→17:40)
[2019-01-07] MEDS: NIACIN 500 MG TABLET PO SCH ×2 (06:33→17:40)
[2019-01-07] MEDS: inSUlin ASPART (NovoLOG) 1 UNIT/0.01 ML (CHARGE PER UNIT) SC SCH ×4 (06:34→21:12)
[2019-01-07] MEDS: PANTOPRAZOLE 2 MG/ML LIQUID 200 ML (PROTONIX) PEG SCH ×3 (06:42)
--- NOTE | 2019-01-07 07:28 | NUR ---
bedside report given to SUZANNA WELLS
[2019-01-07 08:00] VITALS: BP 110/72
[2019-01-07] MEDS: SILDENAFIL 20 MG (REVATIO) TAB NON-FORMULARY PEG SCH ×3 (09:43→20:51)
[2019-01-07] MEDS: ASPIRIN E.C. 325 MG (ECOTRIN) TABLET PO SCH (09:43)
[2019-01-07] MEDS: LIDOCAINE 4% (SALONPAS) PATCH TOP SCH (09:43)
[2019-01-07] MEDS: FOLIC ACID 1 MG TAB PO SCH (09:43)
[2019-01-07] MEDS: MULTIVIT W/MINERALS TAB (THERAGRAN M) PEG SCH (09:44)
[2019-01-07] MEDS: ASCORBIC ACID (VIT C) 500 MG TABLET PEG SCH (09:44)
[2019-01-07] MEDS: THIAMINE 100 MG (VITAMIN B-1) TAB PEG SCH ×2 (09:44→20:52)
[2019-01-07] MEDS: LACTOBACILLUS ACIDOPHILUS (PROBIOTIC) CAPSULE PEG SCH ×2 (09:44→20:51)
[2019-01-07] MEDS: OMEGA 3 (FISH OIL) 1000 MG CAP PO SCH ×2 (09:45→20:51)
[2019-01-07] MEDS: SENNA W/DOCUSATE (SENOKOT S) TABLET PO SCH ×2 (09:45→20:52)
[2019-01-07] MEDS: meTOprolol TARTRATE 25 MG (LOPRESSOR) TABLET PEG SCH ×2 (09:45→20:51)
--- NOTE | 2019-01-07 10:08 | Individualized Plan of Care ---
Individualized Plan of Care Rehab Nursing IPOC Order Admission Date Jan 05, 2019 at 10:35 Current Orders Orders Admission Order(Inpt,Obs,Sdc) (01/05/19 10:52) Vital Signs: Per Unit Policy ( 08,16,00 (01/05/19 10:52) Formation Testing Operator-Inpt Rehab Con (01/05/19 10:52) Rehab Nursing Orders-Ipoc (01/05/19 10:52) Physical Therapy Rehab Orders (01/05/19 10:52) Occupational Therapy Rehab Ord (01/05/19 10:52) Speech Therapy Rehab Orders (01/05/19 10:52) Precautions (Aru) (01/05/19 10:52) Weekly Weight (Lbs) WEEK (01/05/19 10:52) Rehab-Intensity Of Therapy (01/05/19 10:52) Initiate Admission Nursing Pro .admission (01/05/19 10:52) Acetaminophen Tablet (Tylenol Tablet) (01/05/19 11:00) Calcium Carbonate Chew Tablet (Antacid C (01/05/19 11:00) Diphenhydramine Tablet (Benadryl Tablet) (01/05/19 11:00) Docusate Sodium Capsule (Colace Capsule) (01/05/19 11:00) Loperamide Tablet (Imodium Tablet) (01/05/19 11:00) Melatonin Tablet (Melatonin Tablet) (01/05/19 11:00) Ondansetron Injection (Zofran Injectio (01/05/19 11:00) Senna S Tablet (Senokot S Tablet) (01/05/19 21:00) Rt Request For Service (01/05/19 11:06) Consult Pulmonology (01/05/19 11:06) Admission Arrival Bed Request (01/05/19 11:09) Request Ot Evaluate & Treat (01/05/19 11:40) Ambulate , (01/05/19 11:40) Sequential Compression Device (01/05/19 11:40) Dvt/Vte Risk - Notifiy Physici 08 (01/05/19 11:40) Dietary Consult (01/05/19 11:40) Dys2 Mechanically Altered (01/05/19 Lunch) Accucheck Achs ACHS (01/05/19 12:01) BNP (01/05/19 13:19) Basic Metabolic Panel (01/05/19 13:19) Cbc No Diff (01/05/19 13:19) Cbc No Diff (01/06/19 05:00) Magnesium (01/05/19 13:19) Magnesium (01/06/19 05:00) Phosphorus (01/05/19 13:19) Advanced Wound Care Dressing O (01/05/19 13:55) Chest 1 View, Ap/Pa Only (01/05/19 14:03) Consult Wound Care Physician (01/05/19 14:20) Tube Feeding (Diet) (01/05/19 14:27) Patient Visit (01/05/19 ) Pt Eval Moderate Complexity (01/05/19 ) Functional Activities, Ea 15 (01/05/19 ) Acetaminophen Tablet/Caplet (Tylenol T (01/05/19 15:15) Albuterol Pre-Mix Nebs (Rt) (Proventil (01/05/19 15:15) Ascorbic Acid Tablet (Vitamin C Tablet) (01/06/19 09:00) Aspirin Enteric Coated Tablet (Ecotrin T (01/06/19 09:00) D5w Iv Solution (Shelley) (Dextrose 5% Raúl (01/05/19 15:15) Folic Acid Tablet (Folic Acid Tablet) (01/06/19 09:00) Albuterol/Ipra Inhalation Soln (Duoneb I (01/05/19 15:15) Metoprolol Tartrate (Ir) Tab (Lopressor (01/05/19 21:00) Midodrine (Non-Formulary) (Proamatine) (01/05/19 15:15) Therapeutic Multivitamin Tab (Vitamins, (01/06/19 09:00) (Nf) Enoxaparin Sodium (Lovenox) (01/05/19 17:00) (Nf) Ferrous Sulfate (01/05/19 21:00) (Nf) Hydrocodone/Acetaminophen (Hydrocod (01/05/19 15:15) (Nf) Insulin Lispro (Humalog) (01/05/19 16:30) (Nf) Lactobacillus Acidophilus (Acidophi (01/05/19 21:00) (Nf) Lansoprazole (Prevacid) (01/06/19 09:00) (Nf) Lidocaine (Lidocare) (01/06/19 09:00) (Nf) Lipase/Protease/Amylase (Zenpep Dr (01/05/19 15:15) (Nf) Niacin (01/05/19 21:00) (Nf) [place]-3 Acid Ethyl Esters (Lovaza) (01/05/19 21:00) (Nf) Potassium Chloride (01/06/19 09:00) (Nf) Roflumilast (Daliresp) (01/06/19 14:00) (Nf) Scopolamine (Transderm-Scop) (01/05/19 15:15) (Nf) Sodium Bicarbonate (01/05/19 15:15) (Nf) Sucralfate (Carafate) (01/05/19 15:15) (Nf) Theophylline Anhydrous (01/06/19 09:00) (Nf) Thiamine Hcl (B-1) (01/05/19 21:00) Phenol Throat [place] (Chloraseptic [place]) (01/05/19 15:15) D50w (Emergency) Syringe (Dextrose 50% 5 (01/05/19 15:30) Sodium Polystyrene Sulfonate (Kayexalate (01/05/19 15:30) Magnesium 1 Gm/100 Ml Ivpb (Magnesium [place] (01/05/19 15:30) Enoxaparin Injection (Lovenox Injection) (01/05/19 17:00) Ferrous Sulfate Oral Liquid (Feosol Oral (01/05/19 17:00) Hydrocodone/Apap Oral Solution (Lortab 7 (01/05/19 15:30) Hydrocodone/Apap Oral Solution (Lortab 7 (01/05/19 15:30) Lactobacillus Acidophilus Cap (Acidophil (01/05/19 21:00) Insulin Aspart (Novolog) (Novolog (Charg (01/05/19 16:30) Water, Sterile For Irrigation (Sterile W (01/06/19 07:00) Roflumilast Tablet (Daliresp Tablet) (01/06/19 14:00) Sucralfate Tablet (Carafate Tablet) (01/05/19 18:00) Thiamine Tablet (Vitamin B-1 Tablet) (01/05/19 21:00) Sodium Bicarbonate Tablet (Nf) (Sodium B (01/05/19 15:45) Lipase/Amylase/Protease Caps (Pancrelipa (01/05/19 15:45) Lidocaine 4% Patch (Salonpas 4% Patch) (01/06/19 09:00) Patch Removal (Patch Removal) (01/05/19 21:00) [place] 3 Capsule (Fish Oil Capsule) (01/05/19 21:00) Niacin Tablet (Niacin Tablet) (01/05/19 17:00) Scopolamine Patch (Transderm-Scop Patch) (01/06/19 09:00) Patch Removal (Patch Removal) (01/06/19 08:59) Sodium Polystyrene Sulfonate (Kayexalate (01/05/19 18:15) Nursing Communication (Order) (01/06/19 04:24) Basic Metabolic Panel (01/06/19 06:47) Phosphorus (01/06/19 06:47) Sildenafil Tablet (Non-Form) (Revatio Ta (01/06/19 13:00) Patient Visit (01/06/19 ) Functional Activities, Ea 15 (01/06/19 ) Exercise Therap, Ea 15 Min (01/06/19 ) Patient Visit (01/06/19 ) Patient Visit (01/06/19 ) Dysphagia Evaluation Std (01/06/19 ) Speech Sound Lang Comp (01/06/19 ) Code/Resuscitation (01/06/19 19:44) Cbc No Diff (01/07/19 05:00) Magnesium (01/07/19 05:00) Phosphorus (01/07/19 13:19) Patient Visit (01/07/19 ) Exercise Therap, Ea 15 Min (01/07/19 ) Rehab Nursing Orders: Ongoing Assess. of Cognitive Status, Ongoing Assess. of Function Status, Bladder Management, Bladder Scan, Bladder Training, Bowel Management, Bowel Training, Disease Management & Educaiton, DVT Prophylaxis, Fall Prevention, Fluid/Electrolyte/Nutrition Mgmt, Infection Prevention, Medication Management & Education, Management of Risks & Complications, Management of Skin Intergrity, Nutrition Management, Pain Management, Patient /Family Support, Safety Management, Swallow Precautions Intensity of Therapy to be met Patient to be seen: Min.3h per day/5 of 7d PT IPOC Problem List: Activity Tolerance, Functional Strength, Safety, Balance, Transfer Treatment Plan: Continue Plan of Care Bed Mobility, Education, Functional Activity Ralph, Functional Strength, Group Therapy, Gait, Safety, Therapeutic Exercise, Transfers Treatment Duration: Feb 02, 2019 Frequency: At least 5 of 7 days/Wk (IRF) Estimated Hrs Per Day: 1.5 hours per day OT IPOC Problems: Decreased Activ Tolerance, Decreased Safety Aware, Decreased UE Strength, Dependent Transfers, Edema, Impaired Bed Mobility, Impaired Cognition, Impaired Coordination, Impaired Funct Balance, Impaired I ADL's, Impaired Self- Care Skills OT Treatment, Training and Edu: Yes OT Problems pt presents with functional limitations affecting areas of ADLs and functional transfers with the above mention. pt would benefit from skilled OT services to address above mention deficits and to increase independence with ADLs and functional transfers. Plan of Care: ADL Retraining, Caregiver Training, Cognitive Retraining, Concurrent Therapy, Functional Mobility, Group Exercise/Act as Ind, UE Funct Exercise/Act Treatment Duration: Feb 09, 2019 Frequency: At least 5 of 7 days/Wk (IRF) Estimated Hrs Per Day: 1 hour per day (60-90 minutes per day ) ST IPOC Speech Therapy Treatment Plan: Continue Plan of Care Treatment Duration: Jan 13, 2019 Frequency: 5 times per week Estimated Hrs Per Day: .5 hour per day Formation Testing Operator/Case Mgmt Formation Testing Operator/Case Managemen: Discharge Planning Dietitian/Extension Work Instructor Dietitian/Extension Work Instructor to monitor nutritional status and make changes and/or recommendations as needed and work with speech pathology on dietary upgrades as the occur. Physician IPOC Medical Issues being managed closely and that require the 24 hour availability of a physician: Extensive and lengthy critical illness with trach dependence and TF at night will require close monitoring for any type of dysfunction of trach or PEG Medical Issues: Bowel/Bladder Function, DVT Prophylaxis, Falls Precautions, Fluid/Electrolyte/Nutrition Balance, Pain Management, Swallowing Precautions Brief Synthesis of Preadmission Screen, Post-Admission Evaluation, and Therapy Evaluations: PT will focus on strengthening due to severe weakness and inability to ambulate OT will focus on ADL independence and safety awareness ST will work on cognition Medical Prognosis: Good Anticipated Length of Stay: 14 days BO SUÁREZ DO Jan 07, 2019 10:08
--- NOTE | 2019-01-07 10:08 | PM&R Progress Note ---
Subjective HPI/CC On Admission Date Seen by Provider: Jan 07, 2019 Time Seen by Provider: 10:00 Chief complaint: Critical illness myopathy HPI: This is a 78yoWF known to me from ICU 9 hospital stay after a massive GI bleed requiring surgery by Dr. Talamantes who was ultimately transferred to [place] on a ventilator, took three weeks to wean off, had trach placed peg tube for tube feedings and has resulted in severe weakness in need of inpatient rehab, she is doing very well, having a speaking valve on her trach and is not capped at this point because she is so fatigued. Dr. Ding is the customer care assistant who is working with her and is not comfortable capping the trach right now. She is eating 25-50% of the meals, she is receiving nocturnal tube feedings to supplement and overall she has severe weakness and will ultimately return home with her to continue recovery after inpatient rehab works on her strength. Subjective/Events-last exam Patient doing well today wanted her changed to full code last night so I changed it Appears to be depressed overall in addition to the dementia component Psychiatric evaluation will be ordered Speech therapy will be working with the patient like tube feedings at night are tolerated well and she is eating better through the day Left hip decubitus ulcer and right calf wound is being managed by Dr. Javier who is appreciated Loose stools noted from TF at night Conferred with RN Reviewed therapy notes Review of Systems General: Fatigue Pulmonary: Dyspnea Objective Exam Vital Signs Vital Signs Date Time Temp Pulse Resp B/P (MAP) Pulse Ox O2 Delivery O2 Flow Rate FiO2 01/07/19 17:12 Room Air 01/07/19 16:31 97.2 95 16 123/72 (89) 94 01/07/19 06:27 28.00 01/06/19 21:00 28 Capillary Refill : General Appearance: No Apparent Distress, WD/WN, Chronically ill, Thin HEENT: PERRL/EOMI, Normal ENT Inspection, Pharynx Normal, Moist Mucous Membranes, Other Neck: Full Range of Motion, Normal Inspection, Non Tender, Supple Respiratory: Chest Non Tender, Lungs Clear, No Accessory Muscle Use, No Respiratory Distress, Decreased Breath Sounds Cardiovascular: Regular Rate, Rhythm, No Edema, No Gallop, No JVD, No Murmur Gastrointestinal: Normal Bowel Sounds, No Organomegaly, No Pulsatile Mass, Non Tender, Soft, Other (PEG in place) Back: Normal Inspection, No CVA Tenderness, No Vertebral Tenderness Extremity: Normal Capillary Refill, Normal Inspection, Normal Range of Motion, Non Tender, No Calf Tenderness, No Pedal Edema Neurologic/Psychiatric: Alert, Oriented x3, cattle dehorner II-XII Norm as Tested, Depressed Affect, Motor Weakness Skin: Normal Color, Warm/Dry Lymphatic: No Adenopathy Results/Procedures Lab Laboratory Tests 01/07/19 05:37 Patient resulted labs reviewed. FIM Transfers Therapy Code Descriptions/Definitions Functional [place] Measure: 0=Not Assessed/NA 4=Minimal Assistance 1=Total Assistance 5=Supervision or Setup 2=Maximal Assistance 6=Modified [place] 3=Moderate Assistance 7=Complete [place] Therapy Quality Codes: 6 Independent with activity with or without an assistive device 5 Patient requires set up or clean up by helper. Patient completes activity by themselves 4 Supervision or touching assist (CGA). Parthenon provide cues , steadying assist 3 The helper provides less than half the effort to complete the activity 2 The helper provides more than half the effort to complete the activity 1 Dependent. The helper does all the effort to complete an activity 7 Patient refused to complete or attempt activity 9 The patient did not perform the activity before the current illness or injury 88 Not attempted due to Medical conditions or safety concerns Transfers (B, C, W/C) (FIM): 1 Scootin Rollin Roll Left to Right (QC): 1 Supine to/from Sit: 1 Sit to/from Stand: 1 Sit to Lying (QC): 1 Sit to Stand (QC): 1 Chair/Tyq-gc-Gkvmy Xfer(QC): 1 Bed to/from Chair: 1 Car Transfer (QC): 88 Gait Training Does the Patient Walk?: No and Walking Goal IS indicated Gait (FIM): 0 (unable to stand at this time. ) Distance (FIM): 0=does not occure Walk 10 feet (QC): 88 Walk 50 ft with 2 Turns(QC): 88 Walk 150 ft (QC): 88 Walking 10ft/uneven surface-QC: 88 Wheelchair Training Does the Pt Use a Wheelchair?: No Stair Training Stairs (FIM): 0 1 Step (curb) (QC): 88 4 Steps (QC): 88 12 Steps (QC): 88 Balance Picking up an Object (QC): 88 Mental Status/Objective Comprehension: 7 Expression: 7 Social Interaction: 7 Problem Solvin Memory: 7 ADL-Treatment Feedin (secondary to tremmors ) Eating (QC): 1 Groomin Oral Hygiene (QC): 2 Bathin (required assist with 7/10 body parts ) Bathing Location: L Arm, R Arm, Chest Shower/Bathe Self (QC): 1 Upper Extremity Dressin (required TA to apply jacket. ) Upper Body Dressing (QC): 1 Lower Extremity Dressin (dep. for all LB activity) Lower Body Dressing (QC): 1 On/Off Footwear (QC): 1 Toiletin (radha lift ) Toileting Hygiene (QC): 1 Toilet/Commode Transfer: 1 (radha lift ) Toilet Transfer (QC): 1 (radha lift ) Shower: 0 (NT secodanry to safety. pt is radha lift ) Assessment/Plan Assessment and Plan Assess & Plan/Chief Complaint Assessment: Myopathy (1) s/p Ventilator dependence Status: Acute (2) s/p Respiratory failure Status: Acute (3) Anemia due to acute blood loss Status: Acute (4) GERD (gastroesophageal reflux disease) Status: Chronic (5) Dementia Status: Chronic (6) s/p Acute GI bleeding Status: Acute (7) Weakness Status: Acute (8) s/p Transfusion of blood during current hospitalization Status: Acute (9) h/o Pyloric ulcer Status: Acute (10) Trach in place (11) PEG in place with TF at night Plan: Monitor closely TF at night Continue all meds as ordered Reviewed labs Appreciate Dr Kierra Alvarezitus ulcer consulting Dr Javier Full code at 's request Unsure of the recoverability of this patient may ultimately need NHP (1) Myopathy (2) GERD (gastroesophageal reflux disease) (3) Ventilator dependence (4) Hyperkalemia (5) Dementia (6) Pyloric ulcer (7) Tracheostomy in place (8) Transfusion history BO SUÁREZ DO Jan 07, 2019 10:08
--- NOTE | 2019-01-07 12:04 | Physical Therapy Daily Note ---
PT Daily Note-Current Subjective Pt agreeable to PT session if she can do it in bed due to feeling very tired and just finished bath and cleanup with nursing. Pain Comment: Pt denies pain as long as lying still in bed Appearance Pt in bed at beginning of and end of therapy session, call light, phone and bedside table within reach Mental Status Patient Orientation: Person, Eyes Open Transfers Therapy Code Descriptions/Definitions Functional [place] Measure: 0=Not Assessed/NA 4=Minimal Assistance 1=Total Assistance 5=Supervision or Setup 2=Maximal Assistance 6=Modified [place] 3=Moderate Assistance 7=Complete [place] Therapy Quality Codes: 6 Independent with activity with or without an assistive device 5 Patient requires set up or clean up by helper. Patient completes activity by themselves 4 Supervision or touching assist (CGA). [place] provide cues , steadying assist 3 The helper provides less than half the effort to complete the activity 2 The helper provides more than half the effort to complete the activity 1 Dependent. The helper does all the effort to complete an activity 7 Patient refused to complete or attempt activity 9 The patient did not perform the activity before the current illness or injury 88 Not attempted due to Medical conditions or safety concerns Weight Bearing Right Lower Extremity: Right Full Weight Bearing Left Lower Extremity: Left Full Weight Bearing Exercises Supine Ex: Ankle pumps ((+) inv/ev), Quad Set, Heel Slides, Short Arc Quads, Straight leg raise, Hip abd/add Supine Reps: 20 (AAROM required with RLE) Treatments strengthening, ROM, bed mobility, ex Assessment Pt very fatigued after bath with nursing, only able to tolerate bed exercises this am PT Short Term Goals Short Term Goals Time Frame: Jan 19, 2019 Transfers (B,C,W/C) (FIM): 3 Gait (FIM): 2 Distance (FIM): 5=739-69 ft Gait Assistive Device: FWW PT Psychology Instructor Goals Psychology Instructor Goals PT Fci Goals Time Frame: Feb 02, 2019 Transfers (B,C,W/C) (FIM): 6 Sit to Lying (QC): 6 Lying-Sitting on Side/Bed(QC): 6 Sit to Stand (QC): 6 Rollin Roll Left to Right (QC): 6 Chair/Scv-lw-Vnsnf Xfer(QC): 6 Car Transfer (QC): 5 Does the Patient Walk: No and Walking Goal IS indicated Gait (FIM): 5 Gait distance (FIM): 1=839-64 ft Walk 10 feet (QC): 5 Walk 10ft-Uneven Surface(QC): 5 Walk 50ft with 2 Turns (QC): 5 Walk 150 ft (QC): 4 Gait Assistive Device: FWW Does the Pt use WC or Scooter?: No Stairs (FIM): 2 # of Steps: 4 1 Step (curb) (QC): 5 4 Steps (QC): 4 12 Steps (QC): 88 Picking up an Object (QC): 88 PT Plan Treatment/Plan Treatment Plan: Continue Plan of Care Treatment Plan: Bed Mobility, Education, Functional Activity Ralph, Functional Strength, Group Therapy, Gait, Safety, Therapeutic Exercise, Transfers Treatment Duration: Feb 02, 2019 Frequency: At least 5 of 7 days/Wk (IRF) Estimated Hrs Per Day: 1.5 hours per day Patient and/or Family Agrees t: Yes Time/GCodes Time In: 1010 Time Out: 1025 Total Billed Treatment Time: 15 Total Billed Treatment 1 visit, EX x1 unit ADOLFO MILLIGAN ROPE TIER Jan 07, 2019 12:04
--- NOTE | 2019-01-07 13:00 | NUR ---
WITH 'S ENCOURAGEMENT, ATE 100% OF LUNCH (SALMON AND MAC/CHEESE). STATES POOR APPETITE, BUT TRYING TO EAT IT. ALL MEDICATIONS GIVEN PER PEG AND TOLERATING WELL.
[2019-01-07] MEDS: ROFLUMILAST 500 MCG TAB (DALIRESP) PEG SCH (13:48)
--- NOTE | 2019-01-07 15:00 | NUR ---
ATTEMPTED TO GET UP IN CHAIR PER FELIPA LIFT, BUT RAN OUT OF POWER OF LIFT EVEN THOUGH CHARGED. REPOSITIONED EVERY 2 HOURS.
[2019-01-07 16:31] VITALS: BP 123/72
[2019-01-07] MEDS: ENOXAPARIN 40 MG/0.4 ML (LOVENOX) SYR SC SCH (16:56)
[2019-01-07] MEDS ORDERED: CATHETER FLUSH 10 ML SYR IV PRN (17:45)
[2019-01-07] MEDS: HYDROcodone/APAP 7.5MG-325 MG/15 ML (LORTAB) UDC PEG PRN (17:45)
--- NOTE | 2019-01-07 19:29 | NUR ---
bedside report received from SUZANNA WELLS, assume care of pt
[2019-01-07 20:45] VITALS: BP 108/68
--- NOTE | 2019-01-07 20:50 | NUR ---
assessments & interventions completed, see assessments & interventions, gastric residual 3ml tube feeding Glucerna 1.5 fs at 70ml/hr continues fsbs 176 NovoLog 2 units given, pt refused Jesus
[2019-01-07] MEDS: LIDOCAINE PATCH REMOVAL TP SCH (20:52)
[2019-01-07] MEDS: CATHETER FLUSH 10 ML SYR IV SCH (22:30)
[2019-01-08] MEDS: SUCRALFATE 1 GM (CARAFATE) TAB PEG SCH ×4 (00:03→17:41)
[2019-01-08] MEDS: HYDROcodone/APAP 7.5MG-325 MG/15 ML (LORTAB) UDC PEG PRN ×3 (00:04→21:35)
--- NOTE | 2019-01-08 00:04 | NUR ---
gastric residual 5ml, c/o pain level 5/10 on numeric scale, Lortab 7.5 liq given
--- NOTE | 2019-01-08 00:40 | NUR ---
resting quietly in bed, pain level 0/10 on flacc scale
[2019-01-08 05:52] VITALS: BP 97/50
[2019-01-08] MEDS: FERROUS SULFATE ORAL LIQUID 44 MG/ML ML PEG SCH ×2 (06:14→17:41)
[2019-01-08] MEDS: NIACIN 500 MG TABLET PO SCH ×2 (06:14→17:41)
[2019-01-08] MEDS: PANTOPRAZOLE 2 MG/ML LIQUID 200 ML (PROTONIX) PEG SCH ×3 (06:15)
[2019-01-08] MEDS: CATHETER FLUSH 10 ML SYR IV SCH ×3 (06:22→22:45)
[2019-01-08 06:28] LABS: HEMOGLOBIN 8.9 G/DL (11.5-16.0); MEAN PLATELET VOLUME 8.7 FL (7.4-10.4); RED CELL DISTRIBUTION WIDTH 16.7 % (10.0-14.5); WHITE BLOOD COUNT 5.7 10^3/uL (4.3-11.0)
[2019-01-08] MEDS: inSUlin ASPART (NovoLOG) 1 UNIT/0.01 ML (CHARGE PER UNIT) SC SCH ×4 (07:01→20:40)
--- NOTE | 2019-01-08 07:32 | NUR ---
bedside report given to VENECIA WELLS
[2019-01-08] MEDS: OMEGA 3 (FISH OIL) 1000 MG CAP PO SCH ×2 (09:22→21:36)
[2019-01-08] MEDS: ASPIRIN E.C. 325 MG (ECOTRIN) TABLET PO SCH (09:22)
[2019-01-08] MEDS: LACTOBACILLUS ACIDOPHILUS (PROBIOTIC) CAPSULE PEG SCH ×2 (09:22→21:35)
[2019-01-08] MEDS: FOLIC ACID 1 MG TAB PO SCH (09:22)
[2019-01-08] MEDS: ASCORBIC ACID (VIT C) 500 MG TABLET PEG SCH (09:22)
[2019-01-08] MEDS: THIAMINE 100 MG (VITAMIN B-1) TAB PEG SCH ×2 (09:22→21:35)
[2019-01-08] MEDS: meTOprolol TARTRATE 25 MG (LOPRESSOR) TABLET PEG SCH ×2 (09:22→21:36)
[2019-01-08] MEDS: LIDOCAINE 4% (SALONPAS) PATCH TOP SCH (09:23)
[2019-01-08] MEDS: SENNA W/DOCUSATE (SENOKOT S) TABLET PO SCH ×2 (09:23→21:30)
[2019-01-08] MEDS: MULTIVIT W/MINERALS TAB (THERAGRAN M) PEG SCH (09:23)
[2019-01-08] MEDS: SILDENAFIL 20 MG (REVATIO) TAB NON-FORMULARY PEG SCH ×3 (09:28→21:36)
--- NOTE | 2019-01-08 10:48 | PM&R Progress Note ---
Subjective HPI/CC On Admission Date Seen by Provider: Jan 08, 2019 Time Seen by Provider: 10:45 Chief complaint: Critical illness myopathy HPI: This is a 78yoWF known to me from ICU 9 hospital stay after a massive GI bleed requiring surgery by Dr. Talamantes who was ultimately transferred to [place] on a ventilator, took three weeks to wean off, had trach placed peg tube for tube feedings and has resulted in severe weakness in need of inpatient rehab, she is doing very well, having a speaking valve on her trach and is not capped at this point because she is so fatigued. Dr. Ding is the physician surgeon who is working with her and is not comfortable capping the trach right now. She is eating 25-50% of the meals, she is receiving nocturnal tube feedings to supplement and overall she has severe weakness and will ultimately return home with her to continue recovery after inpatient rehab works on her strength. Subjective/Events-last exam Patient doing well today Will discontinue daily labs since everything is stable Calorie count will be started since she appears to be eating very well in order to ultimately stop tube feedings and discontinue the PEG tube Oral intake of fluid is not the best without will be stressed by the nurse today On room air and maintained so Appears to be depressed overall in addition to the dementia component Psychiatric evaluation will be ordered Speech therapy will be working with the patient like tube feedings at night are tolerated well and she is eating better through the day Loose stools noted from TF at night Conferred with RN Reviewed therapy notes Review of Systems General: Fatigue Objective Exam Vital Signs Vital Signs Date Time Temp Pulse Resp B/P (MAP) Pulse Ox O2 Delivery O2 Flow Rate FiO2 01/08/19 05:52 99.2 102 18 97/50 (66) 96 Trach Collar 28.00 01/07/19 22:20 28 Capillary Refill : General Appearance: No Apparent Distress, WD/WN, Chronically ill, Thin HEENT: PERRL/EOMI, Normal ENT Inspection, Pharynx Normal, Moist Mucous Membranes, Other Neck: Full Range of Motion, Normal Inspection, Non Tender, Supple Respiratory: Chest Non Tender, Lungs Clear, No Accessory Muscle Use, No Respiratory Distress, Decreased Breath Sounds Cardiovascular: Regular Rate, Rhythm, No Edema, No Gallop, No JVD, No Murmur Gastrointestinal: Normal Bowel Sounds, No Organomegaly, No Pulsatile Mass, Non Tender, Soft, Other (PEG in place) Back: Normal Inspection, No CVA Tenderness, No Vertebral Tenderness Extremity: Normal Capillary Refill, Normal Inspection, Normal Range of Motion, Non Tender, No Calf Tenderness, No Pedal Edema Neurologic/Psychiatric: Alert, Oriented x3, power digger operator II-XII Norm as Tested, Depressed Affect, Motor Weakness Skin: Normal Color, Warm/Dry Lymphatic: No Adenopathy Results/Procedures Lab Laboratory Tests 01/08/19 06:10 Patient resulted labs reviewed. FIM Transfers Therapy Code Descriptions/Definitions Functional [place] Measure: 0=Not Assessed/NA 4=Minimal Assistance 1=Total Assistance 5=Supervision or Setup 2=Maximal Assistance 6=Modified [place] 3=Moderate Assistance 7=Complete [place] Therapy Quality Codes: 6 Independent with activity with or without an assistive device 5 Patient requires set up or clean up by helper. Patient completes activity by themselves 4 Supervision or touching assist (CGA). [place] provide cues , steadying assist 3 The helper provides less than half the effort to complete the activity 2 The helper provides more than half the effort to complete the activity 1 Dependent. The helper does all the effort to complete an activity 7 Patient refused to complete or attempt activity 9 The patient did not perform the activity before the current illness or injury 88 Not attempted due to Medical conditions or safety concerns Transfers (B, C, W/C) (FIM): 1 Scootin Rollin Roll Left to Right (QC): 1 Supine to/from Sit: 1 Sit to/from Stand: 1 Sit to Lying (QC): 1 Sit to Stand (QC): 1 Chair/Afq-xj-Drbph Xfer(QC): 1 Bed to/from Chair: 1 Car Transfer (QC): 88 Gait Training Does the Patient Walk?: No and Walking Goal IS indicated Gait (FIM): 0 (unable to stand at this time. ) Distance (FIM): 0=does not occure Walk 10 feet (QC): 88 Walk 50 ft with 2 Turns(QC): 88 Walk 150 ft (QC): 88 Walking 10ft/uneven surface-QC: 88 Wheelchair Training Does the Pt Use a Wheelchair?: No Stair Training Stairs (FIM): 0 1 Step (curb) (QC): 88 4 Steps (QC): 88 12 Steps (QC): 88 Balance Picking up an Object (QC): 88 Mental Status/Objective Comprehension: 7 Expression: 7 Social Interaction: 7 Problem Solvin Memory: 7 ADL-Treatment Feedin (secondary to tremmors ) Eating (QC): 1 Groomin Oral Hygiene (QC): 2 Bathin (required assist with 7/10 body parts ) Bathing Location: L Arm, R Arm, Chest Shower/Bathe Self (QC): 1 Upper Extremity Dressin (required TA to apply jacket. ) Upper Body Dressing (QC): 1 Lower Extremity Dressin (dep. for all LB activity) Lower Body Dressing (QC): 1 On/Off Footwear (QC): 1 Toiletin (radha lift ) Toileting Hygiene (QC): 1 Toilet/Commode Transfer: 1 (radha lift ) Toilet Transfer (QC): 1 (radha lift ) Shower: 0 (NT secodanry to safety. pt is radha lift ) Assessment/Plan Assessment and Plan Assess & Plan/Chief Complaint Assessment: Myopathy (1) s/p Ventilator dependence Status: Acute (2) s/p Respiratory failure Status: Acute (3) Anemia due to acute blood loss Status: Acute (4) GERD (gastroesophageal reflux disease) Status: Chronic (5) Dementia Status: Chronic (6) s/p Acute GI bleeding Status: Acute (7) Weakness Status: Acute (8) s/p Transfusion of blood during current hospitalization Status: Acute (9) h/o Pyloric ulcer Status: Acute (10) Trach in place (11) PEG in place with TF at night Plan: Monitor closely TF at night but calorie count will be started in order to DC TF and PEG Continue all meds as ordered Reviewed labs Appreciate Dr Lozada Full code at 's request Unsure of the recoverability of this patient may ultimately need NHP (1) Myopathy (2) GERD (gastroesophageal reflux disease) (3) Ventilator dependence (4) Hyperkalemia (5) Dementia (6) Pyloric ulcer (7) Tracheostomy in place (8) Transfusion history BO SUÁREZ DO Jan 08, 2019 10:48
--- NOTE | 2019-01-08 11:00 | NUR ---
HAS BEEN EATING VERY WELL. STARTING ON CALORIE COUNT TODAY.
[2019-01-08] MEDS: ROFLUMILAST 500 MCG TAB (DALIRESP) PEG SCH (13:01)
[2019-01-08 15:41] VITALS: BP 113/64
--- NOTE | 2019-01-08 16:00 | NUR ---
UP TO CHAIR PER FELIPA LIFT. VISITED.
[2019-01-08] MEDS: ENOXAPARIN 40 MG/0.4 ML (LOVENOX) SYR SC SCH (17:41)
--- NOTE | 2019-01-08 18:00 | NUR ---
UP IN CHAIR X 2 HOURS. A FAIRLY GOOD DAY.
--- NOTE | 2019-01-08 19:26 | NUR ---
bedside report recieved from SUZANNA WELLS, assume care of pt
--- NOTE | 2019-01-08 21:00 | NUR ---
assessments & interventions completed, see assessments & interventions, gastric residual 2ml, tube feeding fs Glucerna 1.5 at 70ml/hr, has medium soft brown stool, fsbs 136 no ss insulin req
[2019-01-08 21:20] VITALS: BP 122/73
--- NOTE | 2019-01-08 21:35 | NUR ---
pt refused Senokot, c/o pain level 5/10 on numeric scale, given Lortab 7.5 15ml per g-tube
[2019-01-08] MEDS: LIDOCAINE PATCH REMOVAL TP SCH (21:49)
--- NOTE | 2019-01-08 22:15 | NUR ---
resting quietly in bed, pain level 0/10 on flacc scale
--- NOTE | 2019-01-09 | NUR ---
gastric residual 10ml
[2019-01-09] MEDS: SUCRALFATE 1 GM (CARAFATE) TAB PEG SCH ×5 (00:16→21:38)
[2019-01-09 05:55] VITALS: BP 110/65
[2019-01-09] MEDS: FERROUS SULFATE ORAL LIQUID 44 MG/ML ML PEG SCH ×2 (06:24→17:56)
[2019-01-09] MEDS: NIACIN 500 MG TABLET PO SCH ×2 (06:24→17:55)
[2019-01-09] MEDS: CATHETER FLUSH 10 ML SYR IV SCH ×3 (06:24→21:38)
[2019-01-09] MEDS: PANTOPRAZOLE 2 MG/ML LIQUID 200 ML (PROTONIX) PEG SCH ×3 (06:31)
--- NOTE | 2019-01-09 07:25 | NUR ---
bedside report given to BHARATHI WELLS
[2019-01-09] MEDS: inSUlin ASPART (NovoLOG) 1 UNIT/0.01 ML (CHARGE PER UNIT) SC SCH ×4 (07:28→21:29)
[2019-01-09] MEDS: SENNA W/DOCUSATE (SENOKOT S) TABLET PO SCH ×2 (08:49→21:38)
[2019-01-09] MEDS: THIAMINE 100 MG (VITAMIN B-1) TAB PEG SCH ×2 (08:49→21:30)
[2019-01-09] MEDS: LIDOCAINE 4% (SALONPAS) PATCH TOP SCH (08:49)
[2019-01-09] MEDS: FOLIC ACID 1 MG TAB PO SCH (08:50)
[2019-01-09] MEDS: ASPIRIN E.C. 325 MG (ECOTRIN) TABLET PO SCH (08:50)
[2019-01-09] MEDS: MULTIVIT W/MINERALS TAB (THERAGRAN M) PEG SCH (08:50)
[2019-01-09] MEDS: meTOprolol TARTRATE 25 MG (LOPRESSOR) TABLET PEG SCH ×2 (08:50→21:30)
[2019-01-09] MEDS: ASCORBIC ACID (VIT C) 500 MG TABLET PEG SCH (08:50)
[2019-01-09] MEDS: LACTOBACILLUS ACIDOPHILUS (PROBIOTIC) CAPSULE PEG SCH ×2 (08:50→21:29)
--- NOTE | 2019-01-09 09:17 | PM&R Progress Note ---
Subjective HPI/CC On Admission Date Seen by Provider: Jan 09, 2019 Time Seen by Provider: 09:15 Chief complaint: Critical illness myopathy HPI: This is a 78yoWF known to me from ICU 9 hospital stay after a massive GI bleed requiring surgery by Dr. Talamantes who was ultimately transferred to [place] on a ventilator, took three weeks to wean off, had trach placed peg tube for tube feedings and has resulted in severe weakness in need of inpatient rehab, she is doing very well, having a speaking valve on her trach and is not capped at this point because she is so fatigued. Dr. Ding is the dough puncher who is working with her and is not comfortable capping the trach right now. She is eating 25-50% of the meals, she is receiving nocturnal tube feedings to supplement and overall she has severe weakness and will ultimately return home with her to continue recovery after inpatient rehab works on her strength. Subjective/Events-last exam No major issues except for loose stools. Calorie count in place to be able to discontinue tube feedings at night and hopefully discontinue peg tube. Overall doing much better and gaining strength with therapy. Very frail status, unsure if she will be able to go home with but that's the intention. Speaking valve is in place and doing very well with that via trach. Reviewed therapy notes. Conferred with RN. Review of Systems General: Fatigue Gastrointestinal: Diarrhea Objective Exam Vital Signs Vital Signs Date Time Temp Pulse Resp B/P (MAP) Pulse Ox O2 Delivery O2 Flow Rate FiO2 01/09/19 17:31 99.0 93 26 112/68 (83) 97 Room Air 01/09/19 07:48 6.00 28 Capillary Refill : General Appearance: No Apparent Distress, WD/WN, Chronically ill, Thin HEENT: PERRL/EOMI, Normal ENT Inspection, Pharynx Normal, Moist Mucous Membranes, Other Neck: Full Range of Motion, Normal Inspection, Non Tender, Supple Respiratory: Chest Non Tender, Lungs Clear, No Accessory Muscle Use, No Respiratory Distress, Decreased Breath Sounds Cardiovascular: Regular Rate, Rhythm, No Edema, No Gallop, No JVD, No Murmur Gastrointestinal: Normal Bowel Sounds, No Organomegaly, No Pulsatile Mass, Non Tender, Soft, Other (PEG in place) Back: Normal Inspection, No CVA Tenderness, No Vertebral Tenderness Extremity: Normal Capillary Refill, Normal Inspection, Normal Range of Motion, Non Tender, No Calf Tenderness, No Pedal Edema Neurologic/Psychiatric: Alert, Oriented x3, shellfish weigher II-XII Norm as Tested, Depressed Affect, Motor Weakness Skin: Normal Color, Warm/Dry Lymphatic: No Adenopathy Results/Procedures Lab Patient resulted labs reviewed. FIM Transfers Therapy Code Descriptions/Definitions Functional [place] Measure: 0=Not Assessed/NA 4=Minimal Assistance 1=Total Assistance 5=Supervision or Setup 2=Maximal Assistance 6=Modified [place] 3=Moderate Assistance 7=Complete [place] Therapy Quality Codes: 6 Independent with activity with or without an assistive device 5 Patient requires set up or clean up by helper. Patient completes activity by themselves 4 Supervision or touching assist (CGA). [place] provide cues , steadying assist 3 The helper provides less than half the effort to complete the activity 2 The helper provides more than half the effort to complete the activity 1 Dependent. The helper does all the effort to complete an activity 7 Patient refused to complete or attempt activity 9 The patient did not perform the activity before the current illness or injury 88 Not attempted due to Medical conditions or safety concerns Transfers (B, C, W/C) (FIM): 1 Scootin Rollin Roll Left to Right (QC): 1 Supine to/from Sit: 1 Sit to/from Stand: 1 Sit to Lying (QC): 1 Sit to Stand (QC): 1 Chair/Cvt-sv-Fdabx Xfer(QC): 1 Bed to/from Chair: 1 Car Transfer (QC): 88 Gait Training Does the Patient Walk?: No and Walking Goal IS indicated Gait (FIM): 0 (unable to stand at this time. ) Distance (FIM): 0=does not occure Walk 10 feet (QC): 88 Walk 50 ft with 2 Turns(QC): 88 Walk 150 ft (QC): 88 Walking 10ft/uneven surface-QC: 88 Wheelchair Training Does the Pt Use a Wheelchair?: No Stair Training Stairs (FIM): 0 1 Step (curb) (QC): 88 4 Steps (QC): 88 12 Steps (QC): 88 Balance Picking up an Object (QC): 88 Mental Status/Objective Comprehension: 7 Expression: 7 Social Interaction: 7 Problem Solvin Memory: 7 ADL-Treatment Feedin (secondary to tremmors ) Eating (QC): 1 Groomin Oral Hygiene (QC): 2 Bathin (required assist with 7/10 body parts ) Bathing Location: L Arm, R Arm, Chest Shower/Bathe Self (QC): 1 Upper Extremity Dressin (required TA to apply jacket. ) Upper Body Dressing (QC): 1 Lower Extremity Dressin (dep. for all LB activity) Lower Body Dressing (QC): 1 On/Off Footwear (QC): 1 Toiletin (radha lift ) Toileting Hygiene (QC): 1 Toilet/Commode Transfer: 1 (radha lift ) Toilet Transfer (QC): 1 (radha lift ) Shower: 0 (NT secodanry to safety. pt is radha lift ) Assessment/Plan Assessment and Plan Assess & Plan/Chief Complaint Assessment: Myopathy (1) s/p Ventilator dependence Status: Acute (2) s/p Respiratory failure Status: Acute (3) Anemia due to acute blood loss Status: Acute (4) GERD (gastroesophageal reflux disease) Status: Chronic (5) Dementia Status: Chronic (6) s/p Acute GI bleeding Status: Acute (7) Weakness Status: Acute (8) s/p Transfusion of blood during current hospitalization Status: Acute (9) h/o Pyloric ulcer Status: Acute (10) Trach in place (11) PEG in place with TF at night Plan: Monitor closely TF at night but calorie count will be started in order to DC TF and PEG Continue all meds as ordered Reviewed labs Appreciate Dr Lozada Full code at 's request Unsure of the recoverability of this patient may ultimately need NHP Patient slow to improve but appears to be motivated Stop daily labs (1) Myopathy (2) GERD (gastroesophageal reflux disease) (3) Ventilator dependence (4) Hyperkalemia (5) Dementia (6) Pyloric ulcer (7) Tracheostomy in place (8) Transfusion history BO SUÁREZ DO Jan 09, 2019 09:17
[2019-01-09] MEDS: SILDENAFIL 20 MG (REVATIO) TAB NON-FORMULARY PEG SCH ×3 (09:32→21:30)
[2019-01-09] MEDS: SCOPOLAMINE 1.5 MG (TRANSDERM-SCOP) PATCH TOP SCH (09:32)
[2019-01-09] MEDS: SCOPOLAMINE PATCH REMOVAL TP SCH (09:33)
[2019-01-09] MEDS: OMEGA 3 (FISH OIL) 1000 MG CAP PO SCH ×2 (09:33→21:38)
--- NOTE | 2019-01-09 10:35 | NUR ---
Pastoral care visit.
--- NOTE | 2019-01-09 11:26 | Occupational Ther Daily Note ---
OT Current Status-Daily Note Subjective pt laying in bed upon OT arrival. pt agreed to OT / PT TX session with focus on increasing activity tolernace, truck control, static/ syn sitting balance. pt complains of pain " all over" 02/25. nsg aware. pt Appearance noted pt is no longer on O2. pt toe nails are long and starting to curl inward toward feet. NSG is aware. Mental Status/Objective Therapy Code Descriptions/Definitions Functional [place] Measure: 0=Not Assessed/NA 4=Minimal Assistance 1=Total Assistance 5=Supervision or Setup 2=Maximal Assistance 6=Modified [place] 3=Moderate Assistance 7=Complete [place] ADL-Treatment Therapy Code Descriptions/Definitions Functional [place] Measure: 0=Not Assessed/NA 4=Minimal Assistance 1=Total Assistance 5=Supervision or Setup 2=Maximal Assistance 6=Modified [place] 3=Moderate Assistance 7=Complete [place] Therapy Quality Codes: 6 Independent with activity with or without an assistive device 5 Patient requires set up or clean up by helper. Patient completes activity by themselves 4 Supervision or touching assist (CGA). [place] provide cues , steadying assist 3 The helper provides less than half the effort to complete the activity 2 The helper provides more than half the effort to complete the activity 1 Dependent. The helper does all the effort to complete an activity 7 Patient refused to complete or attempt activity 9 The patient did not perform the activity before the current illness or i njury 88 Not attempted due to Medical conditions or safety concerns Grooming (FIM): 3 (pt demo ability to wash face while seated in chair. pt also demo abiltiy to brush half of hair and rquird assist to complete task seocndary to decrease activity tolenrace. ) Lower Body Dressing (FIM): 2 Lower Body Dressing (QC): 1 (underpants, pants) Toileting (FIM): 1 (pt inconstant. required TA ) Toileting Hygiene (QC): 1 Transfers (B, C, W/C) (FIM): 1 (radha secondary to decrease safety for SB bored ) PT/OT co-treat completed due to complexity of pt deficits requiring skills of both disciplines for TX session and safety of pt due to lack of strength at this time. PT focus on dynamic/static Seated Balance & core strengthening.. OT focus on UE placement/ sequencing/ ADLS. pt demo incontinence at time of therapy arrival. pt required TA for toilet hygiene and LB dressing. pt required MAX A to perform rolling R<> L. OT provided tactile cuing/ hand position while PT focused on gross movement/ LE positioning. pt required radha lift secondary to decrease truck control. pt is not safe to use SB at this time. pt education on use of W/C. OT provided hand over hand placement to increase UE strength for self propelling while PT focused on gross movement/ stirring of w/c. pt demo ability to self propel 5 ft then required rest break secondary to poor activity tolerance. pt transported to TX gym and transferred to Mat table( TA). while sitting EOB one therapist behind pt for truck control/ balance and second therapist in front of pt working on coordination/ sequencing. pt required CGA - TA to maintain static seated balance. pt demo ability to maintain unsupported static seated balance for 50 secondary using [place]und UE for support on mat table. pt perform truck control tasks and dyn movement by tossing ball into bin. noted with dyn movement ed pt required TA to seated support. pt then transferred back to recliner chair with TA. pt transported back to room resting at end of tx with all needs met, call light in hand. Education OT Patient Education: Energy conservation, Modified ADL techniques, Progress toward Goal/Update tx plan, Purpose of tx/functional activities, Reviewed precautions, Rehab process, Safety issues, Transfer techniques Teaching Recipient: Patient Teaching Methods: Demonstration, Discussion Response to Teaching: Verbalize Understanding, Return Demonstration OT Short Term Goals Short Term Goals Eating(FIM): 3 Grooming(FIM): 3 Bathing(FIM): 3 Upper Body Dressing(FIM): 3 Lower Body Dressing(FIM): 3 Toileting(FIM): 3 Transfers (B,C,W/C) (FIM): 3 Toilet/Commode Transfer(FIM): 3 Shower Transfer(FIM): 3 1=Demonstrate adherence to instructed precautions during ADL tasks. 2=Patient will verbalize/demonstrate understanding of assistive devices/modifications for ADL. 3=Patient will improve strength/tolerance for activity to enable patient to perform ADL's. OT Nursing Home Goals Fork Lift Technician Goals Eating (FIM): 6 Eating (QC): 6 Groomin Oral Hygiene (QC): 6 Bathing(FIM): 5 Bathing Location: L Arm, R Arm, L Upper Leg, R Upper Leg, L Lower Leg (including foot), R Lower Leg (including foot), Chest, Abdomen, Buttocks, Perineal Area Shower/Bathe Self (QC): 5 Upper Body Dressing(FIM): 5 Upper Body Dressing (QC): 5 Lower Body Dressing(FIM): 5 Lower Body Dressing (QC): 5 On/Off Footwear (QC): 5 Toileting(FIM): 5 Toileting Hygiene (QC): 5 Transfers (B,C,W/C) (FIM): 5 Toilet/Commode Transfer(FIM): 5 Toilet/Commode Transfer (QC): 5 Shower Transfer(FIM): 5 Additional Goals: 1-Demonstrate ADL Tasks, 2-Verbalize Understanding, 3- ImproveStrength/Ralph 1=Demonstrate adherence to instructed precautions during ADL tasks. 2=Patient will verbalize/demonstrate understanding of assistive devices/modifications for ADL. 3=Patient will improve strength/tolerance for activity to enable patient to perform ADL's. OT Education/Plan Problem List/Assessment Assessment: Decreased Activ Tolerance, Decreased Safety Aware, Decreased UE Strength, Dependent Transfers, Impaired Bed Mobility, Impaired Cognition, Impaired Coordination, Impaired Funct Balance, Impaired I ADL's, Impaired Self- Care Skills pt presents with functional limitations affecting areas of ADLs and functional transfers with the above mention. pt would benefit from skilled OT services to address above mention deficits and to increase independence with ADLs and functional transfers. Discharge Recommendations Plan/Recommendations: Continue POC Barriers to Progress generalized weakness Treatment Plan/Plan of Care Treatment,Training & Education: Yes Patient would benefit from OT for education, treatment and training to promote independence in ADL's, mobility, safety and/or upper extremity function for ADL's. Plan of Care: ADL Retraining, Caregiver Training, Cognitive Retraining, Concurrent Therapy, Functional Mobility, Group Exercise/Act as Ind, UE Funct Exercise/Act Treatment Duration: Feb 09, 2019 Frequency: At least 5 of 7 days/Wk (IRF) Estimated Hrs Per Day: 1 hour per day (60-90 minutes per day ) Agreement: Yes Rehab Potential: Fair Time/GCodes Start Time: 09:45 Stop Time: 11:00 Billed Treatment Time ADL 25 minutes, 2 units FA 50 minutes, 3 units ANGELY CHOUDHURY OT Jan 09, 2019 11:26
--- NOTE | 2019-01-09 12:01 | Physical Therapy Daily Note ---
PT Daily Note-Current Subjective Pt in bed upon PT arrival. Pt agreed to OT / PT TX session with focus on increasing activity tolerance, trunk control, static and dynamic sitting balance. Pt complains of pain " all over" 02/25. Nsg aware. Pain Numeric Pain Scale: 9 Pain Description: Ache Comment: all over per pt. Mental Status Patient Orientation: Normal For Age Attachments: PEG Tube Transfers Therapy Code Descriptions/Definitions Functional [place] Measure: 0=Not Assessed/NA 4=Minimal Assistance 1=Total Assistance 5=Supervision or Setup 2=Maximal Assistance 6=Modified [place] 3=Moderate Assistance 7=Complete [place] Therapy Quality Codes: 6 Independent with activity with or without an assistive device 5 Patient requires set up or clean up by helper. Patient completes activity by themselves 4 Supervision or touching assist (CGA). [place] provide cues , steadying assist 3 The helper provides less than half the effort to complete the activity 2 The helper provides more than half the effort to complete the activity 1 Dependent. The helper does all the effort to complete an activity 7 Patient refused to complete or attempt activity 9 The patient did not perform the activity before the current illness or injury 88 Not attempted due to Medical conditions or safety concerns Transfers (B, C, W/C) (FIM): 1 Scootin Rollin Supine to/from Sit: 1 Bed to/from Chair: 1 dina lift all TRFs bed to chair, sup to sit as well Weight Bearing Right Lower Extremity: Right Full Weight Bearing Left Lower Extremity: Left Full Weight Bearing Wheelchair Training Does the Pt Use a Wheelchair?: Yes Wheelchair (FIM): 1 Wheelchair Distance: 1=up to 49 ft (15ftx4) Wheelchair Level of Assist: 3 Type of Wheelchair: Manual pt. was instructed by demonstration as well as hand over hand with rest breaks required as pt. fatigued easily, O2 sats taken on room air throughout Rx all >90% Exercises Supine Ex: Ankle pumps (PROM, HC stretches gentle x 5 bilat), Rolling (assisted x 6 ea side), Heel Slides (assisted), Straight leg raise (assisted bilat), Hip abd/add (assisted bilat) Supine Reps: 12 seated wt shifting, seated abd sets all x 12 each during perching on high low table in gym for co Rx with OT secondary to pts. high level of dependence, OT focus on UE coord and strength as well as trunk and PT on LE stablilization and trunk control etc. Treatments pt. initially with brief and incont of BM required mod to max assist for rolling as well as max for cleaning and rolling again to neli clean brief and pants. Dina used with 2 assist bed to w/c, w/c mobility training , dina to high low table for perching and trunk work as well as UE reaching ,mirror used for feedback as pt. manuevered across body, tossing etc with lateral trunk movement and for back movement with assist front and back as needed provided by co Rx OT PT. Dina to recliner and positioned with pillows etc for comfort and support Assessment Current Status: Good Progress PT Short Term Goals Short Term Goals Time Frame: Jan 19, 2019 Transfers (B,C,W/C) (FIM): 3 Gait (FIM): 2 Distance (FIM): 8=137-26 ft Gait Assistive Device: FWW PT [place] Goals [facility] Goals PT [place] Goals Time Frame: Feb 02, 2019 Transfers (B,C,W/C) (FIM): 6 Sit to Lying (QC): 6 Lying-Sitting on Side/Bed(QC): 6 Sit to Stand (QC): 6 Rollin Roll Left to Right (QC): 6 Chair/Qfo-zm-Jrkoq Xfer(QC): 6 Car Transfer (QC): 5 Does the Patient Walk: No and Walking Goal IS indicated Gait (FIM): 5 Gait distance (FIM): 7=852-90 ft Walk 10 feet (QC): 5 Walk 10ft-Uneven Surface(QC): 5 Walk 50ft with 2 Turns (QC): 5 Walk 150 ft (QC): 4 Gait Assistive Device: FWW Does the Pt use WC or Scooter?: No Stairs (FIM): 2 # of Steps: 4 1 Step (curb) (QC): 5 4 Steps (QC): 4 12 Steps (QC): 88 Picking up an Object (QC): 88 PT Plan Treatment/Plan Treatment Plan: Continue Plan of Care Treatment Plan: Bed Mobility, Education, Functional Activity Ralph, Functional Strength, Group Therapy, Gait, Safety, Therapeutic Exercise, Transfers Treatment Duration: Feb 02, 2019 Frequency: At least 5 of 7 days/Wk (IRF) Estimated Hrs Per Day: 1.5 hours per day Patient and/or Family Agrees t: Yes Safety Risks/Education Patient Education: Transfer Techniques, Correct Positioning, W/C Management, Disease Process, Safety Issues Teaching Recipient: Patient Teaching Methods: Demonstration, Discussion Response to Teaching: Verbalize Understanding, Return Demonstration, Reinforcement Needed Time/GCodes Time In: 945 Time Out: 1100 Total Billed Treatment Time: 75 Total Billed Treatment 1, FA30m,wch15m,NM30 co Rx with OT G Codes Necessary: GARTH Fonseca HEAD BANQUET WAITER/WAITRESS Jan 09, 2019 12:01
[2019-01-09] MEDS: ROFLUMILAST 500 MCG TAB (DALIRESP) PEG SCH (13:37)
--- NOTE | 2019-01-09 14:59 | Pulmonary Progress Note ---
Subjective Time Seen by a Provider: 14:59 Subjective/Events-last exam No complications noted. Sepsis Event Evaluation Height, Weight, BMI Height: 5'2.00" Weight: 114lbs. 0.0oz. 51.614296om; 20.9 BMI Method:Actual Exam Exam Vital Signs Date Time Temp Pulse Resp B/P (MAP) Pulse Ox O2 Delivery O2 Flow Rate FiO2 01/09/19 09:00 Room Air 01/09/19 07:48 95 Trach Collar 6.00 28 01/09/19 05:55 98.5 94 18 110/65 (80) 98 Trach Collar 28.00 01/08/19 21:20 105 18 122/73 (89) 98 Trach Collar 28.00 01/08/19 21:00 Room Air 01/08/19 20:25 94 Trach Collar 6.00 28 01/08/19 17:06 Room Air 01/08/19 15:41 97.2 103 16 113/64 (80) 93 Room Air I & O 01/09/19 07:00 Intake Total 2260 ml Balance 2260 ml Height & Weight Height: 5'2.00" Weight: 114lbs. 0.0oz. 51.814760wu; 20.9 BMI Method:Actual General Appearance: No Apparent Distress, WD/WN, Chronically ill, Thin HEENT: PERRL/EOMI, Normal ENT Inspection, Pharynx Normal, Moist Mucous Membranes, Other Neck: Full Range of Motion, Normal Inspection, Non Tender, Supple Respiratory: Chest Non Tender, Lungs Clear, No Accessory Muscle Use, No Respiratory Distress, Decreased Breath Sounds Cardiovascular: Regular Rate, Rhythm, No Edema, No Gallop, No JVD, No Murmur Extremity: Normal Capillary Refill, Normal Inspection, Normal Range of Motion, Non Tender, No Calf Tenderness, No Pedal Edema Neurologic/Psychiatric: Alert, Oriented x3, residential monitor II-XII Norm as Tested, Depressed Affect, Motor Weakness Skin: Normal Color, Warm/Dry Lymphatic: No Adenopathy Results Lab Laboratory Tests 01/08/19 06:10 Assessment/Plan Assessment/Plan Chronic respiratory failure s/p tracheostomy -SVNS -Monitor - Anemia with hx of GIB -Monitor -Repeat labs in ARJUN AGUILAR DO Jan 09, 2019 14:59
--- NOTE | 2019-01-09 16:09 | Speech Therapy Daily Note ---
Speech Daily Progress Note Subjective Date Seen by Provider: Jan 09, 2019 Time Seen by Provider: 00:30 The patient states she is feeling a little better every day. Objective Patient utilized compensatory strategies as trained with 80% accuracy given min to mod verbal and/or visual cues. Assessment Assessment Current Status: Good Progress Treatment Plan Continue Plan of Care Communication Comprehension: 7 Expression: 7 Social Cognition Social Interaction: 7 Problem Solvin Memory: 7 Speech Short Term Goals Short Term Goals Short Term Goals 1) The patient will tolerate the least restrictive diet level without s/s of aspiration at 90% with minimal verbal cues. 2) The patient will utilize compensatory strategies as trained for safe oral intake at 90% or greater with minimal verbal cues. Speech Security Researcher Goals Security Researcher Goals The patient will maintain adequate nutrition/hydration via safe effective swallow function with PEG tube as needed. Speech-Plan Patient/Family Goals Patient/Family Goals: The patient plans on returning home with her post rehab. Treatment Plan Speech Therapy Treatment Plan: Continue Plan of Care The patient is anxious to get her trach out. Treatment Duration: Jan 20, 2019 Frequency: 5 times per week Estimated Hrs Per Day: .5 hour per day Rehab Potential: Fair Barriers to Learning: The patient has a complex medical status. Pt/Family Agrees to Plan: Yes Safety Risks/Education Teaching Recipient: Patient Teaching Methods: Demonstration, Discussion Response to Teaching: Verbalize Understanding, Return Demonstration Education Topics Provided: Safety of oral intake. Time Speech Therapy Time In: 12:00 Speech Therapy Time Out: 12:30 Total Billed Time: 30 Billed Treatment Time 1LACHO SHIRLENE Gunn Jan 09, 2019 16:09
--- NOTE | 2019-01-09 16:29 | NUR ---
KCAL COUNT (01/08) PT CONSUMED 840 KCAL, 50 GRAMS PROTEIN BY MOUTH. ENTERAL FEEDINGS PROVIDE 1260 KCAL, 69 GRAMS PROTEIN, 638 ML FREE WATER. PT TOTAL INTAKE WAS 2100 KCAL, 119 GRAMS PROTEIN. PO INTAKE AND ENTERAL FEEDINGS EXCEED HER NEEDS. IF PO INTAKE MAINTAINS AT THIS LEVEL, NOCTURNAL FEEDS MAY BE DECREASED. WILL CONT TO FOLLOW.
[2019-01-09 17:31] VITALS: BP 112/68
[2019-01-09] MEDS: ENOXAPARIN 40 MG/0.4 ML (LOVENOX) SYR SC SCH (17:56)
[2019-01-09] MEDS: HYDROcodone/APAP 7.5MG-325 MG/15 ML (LORTAB) UDC PEG PRN (21:31)
[2019-01-09] MEDS: LIDOCAINE PATCH REMOVAL TP SCH (21:38)
[2019-01-10 06:09] VITALS: BP 111/57
[2019-01-10] MEDS: NIACIN 500 MG TABLET PO SCH ×2 (06:29→17:34)
[2019-01-10] MEDS: SUCRALFATE 1 GM (CARAFATE) TAB PEG SCH ×2 (06:29→11:44)
[2019-01-10] MEDS: PANTOPRAZOLE 2 MG/ML LIQUID 200 ML (PROTONIX) PEG SCH ×3 (06:30)
[2019-01-10] MEDS: inSUlin ASPART (NovoLOG) 1 UNIT/0.01 ML (CHARGE PER UNIT) SC SCH ×4 (06:32→21:05)
[2019-01-10] MEDS: CATHETER FLUSH 10 ML SYR IV SCH ×3 (06:32→22:42)
[2019-01-10] MEDS: FERROUS SULFATE ORAL LIQUID 44 MG/ML ML PEG SCH (06:41)
[2019-01-10 08:00] VITALS: BP 127/74
--- NOTE | 2019-01-10 08:00 | NUR ---
NEEDED ET SUCTIONED. REMAINS ON CALORIE COUNT. STATES FOOD "JUST DOESN'T LOOK APPETIZING - DON'T LIKE GROUND UP MEAT". OKAY'D BY DHARA, SPEECH THERAPIST, TO TRY MEDS CRUSHED AND PUT IN PUDDING INSTEAD OF PER PEG. DR. SUÁREZ OKAYS THIS. PATIENT DID VERY WELL. NO CHOKING OR DIFFICULTY IN SWALLOWING. WILL ALSO DECREASE NIGHT TIME FEEDINGS TO 35 CC/HR.
--- NOTE | 2019-01-10 09:12 | PM&R Progress Note ---
Subjective HPI/CC On Admission Date Seen by Provider: Jan 10, 2019 Time Seen by Provider: 09:00 Chief complaint: Critical illness myopathy HPI: This is a 78yoWF known to me from ICU 9 hospital stay after a massive GI bleed requiring surgery by Dr. Talamantes who was ultimately transferred to [place] on a ventilator, took three weeks to wean off, had trach placed peg tube for tube feedings and has resulted in severe weakness in need of inpatient rehab, she is doing very well, having a speaking valve on her trach and is not capped at this point because she is so fatigued. Dr. Ding is the channel marketing manager who is working with her and is not comfortable capping the trach right now. She is eating 25-50% of the meals, she is receiving nocturnal tube feedings to supplement and overall she has severe weakness and will ultimately return home with her to continue recovery after inpatient rehab works on her strength. Subjective/Events-last exam No major issues except for loose stools but they are a bit improved the more solid food she eats Calorie count in place to be able to discontinue tube feedings at night and hopefully discontinue peg tube but will decrease TF from 2929-1050 from 75cc/hr to 35cc/hr in prep for DC Overall doing much better and gaining strength with therapy. Very frail status, unsure if she will be able to go home with but that's the intention. Speaking valve is in place and doing very well with that via trach. Reviewed therapy notes. Conferred with RN. Review of Systems General: Fatigue, Malaise Objective Exam Vital Signs Vital Signs Date Time Temp Pulse Resp B/P (MAP) Pulse Ox O2 Delivery O2 Flow Rate FiO2 01/10/19 06:09 98.6 100 20 111/57 (75) 98 Room Air 01/09/19 21:54 6.00 28 Capillary Refill : General Appearance: No Apparent Distress, WD/WN, Chronically ill, Thin HEENT: PERRL/EOMI, Normal ENT Inspection, Pharynx Normal, Moist Mucous Membranes, Other Neck: Full Range of Motion, Normal Inspection, Non Tender, Supple Respiratory: Chest Non Tender, Lungs Clear, No Accessory Muscle Use, No Respiratory Distress, Decreased Breath Sounds Cardiovascular: Regular Rate, Rhythm, No Edema, No Gallop, No JVD, No Murmur Gastrointestinal: Normal Bowel Sounds, No Organomegaly, No Pulsatile Mass, Non Tender, Soft, Other (PEG in place) Back: Normal Inspection, No CVA Tenderness, No Vertebral Tenderness Extremity: Normal Capillary Refill, Normal Inspection, Normal Range of Motion, Non Tender, No Calf Tenderness, No Pedal Edema Neurologic/Psychiatric: Alert, Oriented x3, weatherization coordinator II-XII Norm as Tested, Depressed Affect, Motor Weakness Skin: Normal Color, Warm/Dry Lymphatic: No Adenopathy Results/Procedures Lab Patient resulted labs reviewed. FIM Transfers Therapy Code Descriptions/Definitions Functional [place] Measure: 0=Not Assessed/NA 4=Minimal Assistance 1=Total Assistance 5=Supervision or Setup 2=Maximal Assistance 6=Modified [place] 3=Moderate Assistance 7=Complete [place] Therapy Quality Codes: 6 Independent with activity with or without an assistive device 5 Patient requires set up or clean up by helper. Patient completes activity by themselves 4 Supervision or touching assist (CGA). Cornelia provide cues , steadying assi st 3 The helper provides less than half the effort to complete the activity 2 The helper provides more than half the effort to complete the activity 1 Dependent. The helper does all the effort to complete an activity 7 Patient refused to complete or attempt activity 9 The patient did not perform the activity before the current illness or injury 88 Not attempted due to Medical conditions or safety concerns Transfers (B, C, W/C) (FIM): 1 Scootin Rollin Roll Left to Right (QC): 1 Supine to/from Sit: 1 Sit to/from Stand: 1 Sit to Lying (QC): 1 Sit to Stand (QC): 1 Chair/Kgb-rp-Rdcnx Xfer(QC): 1 Bed to/from Chair: 1 Car Transfer (QC): 88 Gait Training Does the Patient Walk?: No and Walking Goal IS indicated Gait (FIM): 0 (unable to stand at this time. ) Distance (FIM): 0=does not occure Walk 10 feet (QC): 88 Walk 50 ft with 2 Turns(QC): 88 Walk 150 ft (QC): 88 Walking 10ft/uneven surface-QC: 88 Wheelchair Training Does the Pt Use a Wheelchair?: Yes Wheelchair (FIM): 1 Wheelchair Distance: 1=up to 49 ft (15ftx4) Wheelchair Level of Assist: 3 Type of Wheelchair: Manual Stair Training Stairs (FIM): 0 1 Step (curb) (QC): 88 4 Steps (QC): 88 12 Steps (QC): 88 Balance Picking up an Object (QC): 88 Mental Status/Objective Comprehension: 7 Expression: 7 Social Interaction: 7 Problem Solvin Memory: 7 ADL-Treatment Feedin (secondary to tremmors ) Eating (QC): 1 Groomin (pt demo ability to wash face while seated in chair. pt also demo abiltiy to brush half of hair and rquird assist to complete task seocndary to decrease activity tolenrace. ) Oral Hygiene (QC): 2 Bathin (required assist with 7/10 body parts ) Bathing Location: L Arm, R Arm, Chest Shower/Bathe Self (QC): 1 Upper Extremity Dressin (required TA to apply jacket. ) Upper Body Dressing (QC): 1 Lower Extremity Dressin Lower Body Dressing (QC): 1 (underpants, pants) On/Off Footwear (QC): 1 Toiletin (pt inconstant. required TA ) Toileting Hygiene (QC): 1 Toilet/Commode Transfer: 1 (radha lift ) Toilet Transfer (QC): 1 (radha lift ) Shower: 0 (NT secodanry to safety. pt is radha lift ) Assessment/Plan Assessment and Plan Assess & Plan/Chief Complaint Assessment: Myopathy (1) s/p Ventilator dependence Status: Acute (2) s/p Respiratory failure Status: Acute (3) Anemia due to acute blood loss Status: Acute (4) GERD (gastroesophageal reflux disease) Status: Chronic (5) Dementia Status: Chronic (6) s/p Acute GI bleeding Status: Acute (7) Weakness Status: Acute (8) s/p Transfusion of blood during current hospitalization Status: Acute (9) h/o Pyloric ulcer Status: Acute (10) Trach in place (11) PEG in place with TF at night Plan: Monitor closely TF at night but calorie count will be started in order to DC TF and PEG and will decrease rate today from 70 to 35 Continue all meds as ordered Reviewed labs Appreciate Dr Lozada Full code at 's request Unsure of the recoverability of this patient may ultimately need NHP Patient slow to improve but appears to be motivated Stop daily labs (1) Myopathy (2) GERD (gastroesophageal reflux disease) (3) Ventilator dependence (4) Hyperkalemia (5) Dementia (6) Pyloric ulcer (7) Tracheostomy in place (8) Transfusion history BO SUÁREZ DO Jan 10, 2019 09:12
[2019-01-10] MEDS: LIDOCAINE 4% (SALONPAS) PATCH TOP SCH (09:44)
[2019-01-10] MEDS: FOLIC ACID 1 MG TAB PO SCH (09:44)
[2019-01-10] MEDS: ASPIRIN E.C. 325 MG (ECOTRIN) TABLET PO SCH (09:44)
[2019-01-10] MEDS: MULTIVIT W/MINERALS TAB (THERAGRAN M) PEG SCH (09:45)
[2019-01-10] MEDS: THIAMINE 100 MG (VITAMIN B-1) TAB PEG SCH (09:45)
[2019-01-10] MEDS: ASCORBIC ACID (VIT C) 500 MG TABLET PEG SCH (09:45)
[2019-01-10] MEDS: LACTOBACILLUS ACIDOPHILUS (PROBIOTIC) CAPSULE PEG SCH (09:45)
[2019-01-10] MEDS: meTOprolol TARTRATE 25 MG (LOPRESSOR) TABLET PEG SCH (09:45)
[2019-01-10] MEDS: OMEGA 3 (FISH OIL) 1000 MG CAP PO SCH ×2 (09:45→21:05)
[2019-01-10] MEDS: SILDENAFIL 20 MG (REVATIO) TAB NON-FORMULARY PEG SCH ×2 (09:48→12:41)
[2019-01-10] MEDS: SENNA W/DOCUSATE (SENOKOT S) TABLET PO SCH ×2 (09:49→21:20)
[2019-01-10] MEDS: HYDROcodone/APAP 7.5MG-325 MG/15 ML (LORTAB) UDC PEG PRN (10:47)
--- NOTE | 2019-01-10 10:47 | Physical Therapy Daily Note ---
PT Daily Note-Current Subjective Pt laying Supine in bed with HOB raised. Pt agrees to PT/OT co-treat for showering. Pt demonstrates anxiousness with transfers. Transfers Therapy Code Descriptions/Definitions Functional [place] Measure: 0=Not Assessed/NA 4=Minimal Assistance 1=Total Assistance 5=Supervision or Setup 2=Maximal Assistance 6=Modified [place] 3=Moderate Assistance 7=Complete [place] Therapy Quality Codes: 6 Independent with activity with or without an assistive device 5 Patient requires set up or clean up by helper. Patient completes activity by themselves 4 Supervision or touching assist (CGA). [place] provide cues , steadying assist 3 The helper provides less than half the effort to complete the activity 2 The helper provides more than half the effort to complete the activity 1 Dependent. The helper does all the effort to complete an activity 7 Patient refused to complete or attempt activity 9 The patient did not perform the activity before the current illness or injury 88 Not attempted due to Medical conditions or safety concerns Scootin Rollin Roll Left to Right (QC): 1 Supine to/from Sit: 1 Sit to Lying (QC): 1 Chair/Znz-zm-Dhzic Xfer(QC): 1 Bed to/from Chair: 1 Weight Bearing Right Lower Extremity: Right Full Weight Bearing Left Lower Extremity: Left Full Weight Bearing Exercises Supine Ex: Rolling, Scooting Treatments Pt agreed to OT/ PT TX session with focus in increasing independence with ADLS/ functional transfers. Pt c/o no pain. PT/OT co-treat completed due to complexity of pt deficits requiring skills of both disciplines for TX session and safety of pt due to lack of strength at this time. PT focus on gross movement/ functional transfers, and seated balance while OT focus on UE placement, sequencing, and ADLs. Pt demo incontinence at time of therapy arrival. Pt required TA for toilet hygiene pt required MAX A to perform rolling R<> L. OT provided tactile cuing/ hand position while PT focused on gross movement/ LE positioning. pt required TA X 2 person to perform supine sit an TA X 2 person for SB from bed to shower chair.. noted pt limited by fear for transfers. Pt transported into shower. while in shower OT focused on ADL/ bathing task while PT focus on sitting balance. trach, and IV covered secondary to water. NSG present in room for covering. post shower pt required TA X 2 person assist to transfer back to bed and TA for rolling. while in bed pt demo incontinence of bowl and bladder X 2 requiring TA for clean up. post OT Session by laying in bed. noted limited activity tolerance. Pt stated she will sit up in recliner chair for lunch. NSG aware. Pt left in NSG care post OT/ PT session. Pt c/o no pain. all needs met, call light in hand. Assessment Current Status: Fair Progress Decreased Activ Tolerance, Decreased Safety Aware, Decreased UE Strength, Dependent Transfers, Impaired Bed Mobility, Impaired Coordination, Impaired Funct Balance, Impaired I ADL's, Impaired Self-Care Skills Pt presents with functional limitations affecting areas of ADLs and functional transfers with the above mention. Pt would benefit from skilled OT services to address above mention deficits and to increase independence with ADLs and functional transfers. PT Short Term Goals Short Term Goals Time Frame: Jan 19, 2019 Transfers (B,C,W/C) (FIM): 3 Gait (FIM): 2 Distance (FIM): 2=576-65 ft Gait Assistive Device: FWW PT [facility] Goals Editor Map Goals PT Editor Map Goals Time Frame: Feb 02, 2019 Transfers (B,C,W/C) (FIM): 6 Sit to Lying (QC): 6 Lying-Sitting on Side/Bed(QC): 6 Sit to Stand (QC): 6 Rollin Roll Left to Right (QC): 6 Chair/Oxe-ur-Ndloc Xfer(QC): 6 Car Transfer (QC): 5 Does the Patient Walk: No and Walking Goal IS indicated Gait (FIM): 5 Gait distance (FIM): 0=050-53 ft Walk 10 feet (QC): 5 Walk 10ft-Uneven Surface(QC): 5 Walk 50ft with 2 Turns (QC): 5 Walk 150 ft (QC): 4 Gait Assistive Device: FWW Does the Pt use WC or Scooter?: No Stairs (FIM): 2 # of Steps: 4 1 Step (curb) (QC): 5 4 Steps (QC): 4 12 Steps (QC): 88 Picking up an Object (QC): 88 PT Plan Problem List Problem List: Activity Tolerance, Functional Strength, Safety, Balance, Transfer, Bed Mobility Treatment/Plan Treatment Plan: Continue Plan of Care Treatment Plan: Bed Mobility, Education, Functional Activity Ralph, Functional Strength, Group Therapy, Gait, Safety, Therapeutic Exercise, Transfers Treatment Duration: Feb 02, 2019 Frequency: At least 5 of 7 days/Wk (IRF) Estimated Hrs Per Day: 1.5 hours per day Patient and/or Family Agrees t: Yes Safety Risks/Education Patient Education: Transfer Techniques, Correct Positioning, Safety Issues Teaching Recipient: Patient Teaching Methods: Discussion Response to Teaching: Verbalize Understanding Time/GCodes Time In: 915 Time Out: 1040 Total Billed Treatment Time: 85 Total Billed Treatment 1, FA x6 (85m) G Codes Necessary: PIERRE Arboleda FLEXIBLE MACHINING SYSTEM MACHINIST Jan 10, 2019 10:47
--- NOTE | 2019-01-10 11:13 | Occupational Ther Daily Note ---
OT Current Status-Daily Note Subjective pt laying in bed. pt agreed ot OT/ PT TX session with focus in increasing independence with ADLS/ functional transfers. pt c/o no pain. Mental Status/Objective Therapy Code Descriptions/Definitions Functional [place] Measure: 0=Not Assessed/NA 4=Minimal Assistance 1=Total Assistance 5=Supervision or Setup 2=Maximal Assistance 6=Modified [place] 3=Moderate Assistance 7=Complete [place] Attachments: PEG Tube ADL-Treatment Therapy Code Descriptions/Definitions Functional [place] Measure: 0=Not Assessed/NA 4=Minimal Assistance 1=Total Assistance 5=Supervision or Setup 2=Maximal Assistance 6=Modified [place] 3=Moderate Assistance 7=Complete [place] Therapy Quality Codes: 6 Independent with activity with or without an assistive device 5 Patient requires set up or clean up by helper. Patient completes activity by themselves 4 Supervision or touching assist (CGA). [facility] provide cues , steadying assist 3 The helper provides less than half the effort to complete the activity 2 The helper provides more than half the effort to complete the activity 1 Dependent. The helper does all the effort to complete an activity 7 Patient refused to complete or attempt activity 9 The patient did not perform the activity before the current illness or injury 88 Not attempted due to Medical conditions or safety concerns Eating (FIM): 4 Eating (QC): 4 Grooming (FIM): 3 (pt demo ability to wash face. pt required assist to wash hair and comb hair ) Bathing (FIM): 3 Bathing Location: L Arm, R Arm, Chest, Abdomen Shower/Bathe Self (QC): 2 On/Off Footwear (QC): 1 (ayush socks ) Toileting (FIM): 1 Toileting Hygiene (QC): 1 Transfers (B, C, W/C) (FIM): 1 (SB X 2 person assist ) Toilet/Commode Transfer (FIM): 1 (SB X 2 person assist ) Toilet Transfer (QC): 1 (SB X 2 person assist ) Shower Transfer(FIM): 1 (SB X 2 person assist ) PT/OT co-treat completed due to complexity of pt deficits requiring skills of both disciplines for TX session and safety of pt due to lack of strength at this time. PT focus on gross movement/ functional transfers, and seated balance while OT focus on UE placement, sequencing, and ADLs. pt demo incontinence at time of therapy arrival. pt required TA for toilet hygiene pt required MAX A to perform rolling R<> L. OT provided tactile cuing/ hand position while PT focused on gross movement/ LE positioning. pt required TA X 2 person to perform supine sit an TA X 2 person for SB from bed to shower chair.. noted pt limited by fear for transfers. pt transported into shower. while in shower OT focused on ADL/ bathing task while PT focus on sitting balance. trach, and IV covered secondary to water. NSG present in room for covering. post shower pt required TA X 2 person assist to transfer back to bed and TA for rolling. while in bed pt demo incontinence of bowl and bladder X 2 requiring TA for clean up. post OT Session by laying in bed. noted limited activity tolerance. pt stated she will sit up in recliner chair for lunch. NSG aware. pt left in NSG care post OT/ PT session. pt c/o no pain. all needs met, call light in hand. Education OT Patient Education: Energy conservation, Modified ADL techniques, Progress toward Goal/Update tx plan, Purpose of tx/functional activities, Reviewed precautions, Rehab process, Safety issues, Transfer techniques Teaching Recipient: Patient Teaching Methods: Demonstration, Discussion Response to Teaching: Verbalize Understanding, Return Demonstration OT Short Term Goals Short Term Goals Eating(FIM): 3 Grooming(FIM): 3 Bathing(FIM): 3 Upper Body Dressing(FIM): 3 Lower Body Dressing(FIM): 3 Toileting(FIM): 3 Transfers (B,C,W/C) (FIM): 3 Toilet/Commode Transfer(FIM): 3 Shower Transfer(FIM): 3 1=Demonstrate adherence to instructed precautions during ADL tasks. 2=Patient will verbalize/demonstrate understanding of assistive devices/modifications for ADL. 3=Patient will improve strength/tolerance for activity to enable patient to perform ADL's. OT Detention Goals Court Crier Goals Eating (FIM): 6 Eating (QC): 6 Groomin Oral Hygiene (QC): 6 Bathing(FIM): 5 Bathing Location: L Arm, R Arm, L Upper Leg, R Upper Leg, L Lower Leg (including foot), R Lower Leg (including foot), Chest, Abdomen, Buttocks, Perineal Area Shower/Bathe Self (QC): 5 Upper Body Dressing(FIM): 5 Upper Body Dressing (QC): 5 Lower Body Dressing(FIM): 5 Lower Body Dressing (QC): 5 On/Off Footwear (QC): 5 Toileting(FIM): 5 Toileting Hygiene (QC): 5 Transfers (B,C,W/C) (FIM): 5 Toilet/Commode Transfer(FIM): 5 Toilet/Commode Transfer (QC): 5 Shower Transfer(FIM): 5 Additional Goals: 1-Demonstrate ADL Tasks, 2-Verbalize Understanding, 3- ImproveStrength/Ralph 1=Demonstrate adherence to instructed precautions during ADL tasks. 2=Patient will verbalize/demonstrate understanding of assistive devices/modifications for ADL. 3=Patient will improve strength/tolerance for activity to enable patient to perform ADL's. OT Education/Plan Problem List/Assessment Assessment: Decreased Activ Tolerance, Decreased Safety Aware, Decreased UE Strength, Dependent Transfers, Impaired Bed Mobility, Impaired Coordination, Impaired Funct Balance, Impaired I ADL's, Impaired Self-Care Skills pt presents with functional limitations affecting areas of ADLs and functional transfers with the above mention. pt would benefit from skilled OT services to address above mention deficits and to increase independence with ADLs and functional transfers. Discharge Recommendations Plan/Recommendations: Continue POC Treatment Plan/Plan of Care Treatment,Training & Education: Yes Patient would benefit from OT for education, treatment and training to promote independence in ADL's, mobility, safety and/or upper extremity function for ADL's. Plan of Care: ADL Retraining, Caregiver Training, Cognitive Retraining, Concurrent Therapy, Functional Mobility, Group Exercise/Act as Ind, UE Funct Exercise/Act Treatment Duration: Feb 09, 2019 Frequency: At least 5 of 7 days/Wk (IRF) Estimated Hrs Per Day: 1 hour per day (60-90 minutes per day ) Agreement: Yes Rehab Potential: Fair Time/GCodes Start Time: 09:15 Stop Time: 10:40 Billed Treatment Time ADL 85 minutes, 6 units ANGELY CHOUDHURY OT Jan 10, 2019 11:13
--- NOTE | 2019-01-10 11:46 | NUR ---
LEFT MESSAGE WITH DR. BECKMAN'S OFFICE TO TRIM TOEANILS. MESSAGE SAID THEY WERE OUT OF OFFICE TODAY.
[2019-01-10] MEDS: ROFLUMILAST 500 MCG TAB (DALIRESP) PEG SCH (12:41)
[2019-01-10] MEDS ORDERED: LIPASE/AMYLASE/PROTEASE (PANCRELIPASE) 5,000 UNITS CAP PO PRN (13:30)
[2019-01-10] MEDS ORDERED: SODIUM BICARBONATE 650 MG TABLET (NON-FORMULARY) PEG PRN (13:30)
[2019-01-10] MEDS: ROFLUMILAST 500 MCG TAB (DALIRESP) PO SCH (13:40)
[2019-01-10] MEDS ORDERED: LIPASE/AMYLASE/PROTEASE (PANCRELIPASE) 5,000 UNITS CAP PEG PRN (13:45)
--- NOTE | 2019-01-10 14:30 | NUR ---
SAT UP IN CHAIR FOR 2.5 HOURS. BACK TO BED PER FELIPA LIFT.
[2019-01-10] MEDS ORDERED: ACETAMINOPHEN 325 MG TABLET PO PRN (15:15)
--- NOTE | 2019-01-10 16:00 | Speech Therapy Daily Note ---
Speech Daily Progress Note Subjective Date Seen by Provider: Jan 10, 2019 Time Seen by Provider: 00:30 The patient was just finishing up her breakfast when I entered her room. Objective The patient demonstrated utilization of compensatory strategies as trained with 80% accuracy given min to mod verbal cues. Assessment Assessment Current Status: Good Progress Treatment Plan Continue Plan of Care Communication Comprehension: 7 Expression: 7 Social Cognition Social Interaction: 7 Problem Solvin Memory: 7 Speech Short Term Goals Short Term Goals Short Term Goals 1) The patient will tolerate the least restrictive diet level without s/s of aspiration at 90% with minimal verbal cues. 2) The patient will utilize compensatory strategies as trained for safe oral intake at 90% or greater with minimal verbal cues. Speech Shelter Goals Diamond Wheel Edger Goals The patient will maintain adequate nutrition/hydration via safe effective swallow function with PEG tube as needed. Speech-Plan Patient/Family Goals Patient/Family Goals: The patient plans on returning home with her post rehab. Treatment Plan Speech Therapy Treatment Plan: Continue Plan of Care The patient is making progress with therapy. Treatment Duration: Jan 20, 2019 Frequency: 5 times per week Estimated Hrs Per Day: .5 hour per day Rehab Potential: Fair Barriers to Learning: Patient has a complex medical status. Safety Risks/Education Teaching Recipient: Patient Teaching Methods: Discussion Response to Teaching: Verbalize Understanding Education Topics Provided: Continued safety with oral intake. Time Speech Therapy Time In: 08:00 Speech Therapy Time Out: 08:30 Total Billed Time: 30 Billed Treatment Time LACHO Jarvis SHIRLENE Gunn Jan 10, 2019 16:00
[2019-01-10 16:35] VITALS: BP 116/74
--- NOTE | 2019-01-10 17:28 | Podiatry Progress Note ---
Standard Progress Note Progress Notes/Assess & Plan Date Seen by a Provider: Jan 10, 2019 Time Seen by a Provider: 17:27 Progress/Assessment & Plan Consult dictated and foot care given. Final Diagnosis Onychomycosis, Hallux Valgus, Hammertoes, Footdrop KAYLA BECKMAN DPM Jan 10, 2019 17:28
[2019-01-10] MEDS: ENOXAPARIN 40 MG/0.4 ML (LOVENOX) SYR SC SCH (17:34)
[2019-01-10] MEDS: SUCRALFATE 1 GM (CARAFATE) TAB PO SCH (17:34)
[2019-01-10] MEDS: FERROUS SULFATE ORAL LIQUID 44 MG/ML ML PO SCH (17:34)
--- NOTE | 2019-01-10 18:00 | NUR ---
DR. BECKMAN AND NURSE HERE TO CUT TOENAILS.
--- NOTE | 2019-01-10 19:17 | NUR ---
bedside report received from SUZANNA WELLS, assume care of pt
--- NOTE | 2019-01-10 20:08 | CONSULTATION REPORT ---
DATE OF SERVICE: REASON FOR CONSULTATION: Continuation of foot care. HISTORY OF PRESENT ILLNESS: This patient is known to our clinic, but has not visited for some time. She had difficulty reaching for and caring for her feet. She is complaining of extremely long and problematic toenails bilaterally. She has difficulty walking. She is currently admitted to [facility] for rehabilitation purposes. Apparently, she had a massive GI bleed requiring surgical intervention and was ultimately transferred to another facility for ventilation. The result was a significant wasting and weakness for the patient. PAST MEDICAL HISTORY: Includes joint replacement, dementia, chronic UTI, gastro reflux and GI bleed, degenerative joint disease, rheumatoid arthritis, diabetes with insulin-dependent and cataract surgery. CURRENT MEDICATIONS: Listed on the patient's chart. ALLERGIES: She is allergic to some unknown bladder medication. SOCIAL HISTORY: The patient denies tobacco, alcohol or illicit drug use. PHYSICAL EXAMINATION: GENERAL: This is a well-developed female, in no apparent distress. She is currently afebrile. EXTREMITIES: She has 2/4 dorsalis pedis pulses bilaterally, 2/4 posterior tibial pulse bilaterally. Cap refill time is less than 3 seconds. NEUROLOGIC: The patient has intact protective sensation per 10 gram monofilament wire examination bilaterally. She has diminished vibratory sensation to the forefoot bilaterally. DERMATOLOGIC: The patient has thick, yellow, dystrophic toenails with subungual debris associated with the hallux bilaterally, but also to the lesser degree to the right fourth and fifth and left third digits. The right hallux toenail is so long, it has grown around and underneath the right hallux. No open wounds are identified at this time. MUSCULOSKELETAL FINDINGS: The patient has lateral deviation to the hallux with overlapping second and third digits bilaterally. Contracted toes are noted 2 through 5 bilaterally. The patient has decreased muscle strength for dorsiflexion and eversion bilaterally. She also has decreased muscle strength for plantarflexion and inversion, but not as significant as her lack of dorsiflexion strength to the ankle joint bilaterally. ASSESSMENT: 1. Onychomycosis. 2. Idiopathic neuropathy. 3. Hallux valgus with Hammer digit syndrome bilaterally. 4. Footdrop bilaterally. PLAN: Various treatment options were discussed with the patient today. She will continue with her physical therapy and strengthening protocol. Her toenails were debrided manually mechanically. Betadine applied. We discussed appropriate shoegear and she is welcome to follow up in our office upon discharge as necessary. Job ID: [id number] DocumentID: [id number] Dictated Date: 01/10/2019 17:34:52 Corrosion Control Engineer Date: 01/10/2019 20:07:30 Dictated By: LESA DEVLIN
[2019-01-10 21:00] VITALS: BP 112/54
[2019-01-10] MEDS: SILDENAFIL 20 MG (REVATIO) TAB NON-FORMULARY PO SCH (21:06)
[2019-01-10] MEDS: LACTOBACILLUS ACIDOPHILUS (PROBIOTIC) CAPSULE PO SCH (21:06)
[2019-01-10] MEDS: THIAMINE 100 MG (VITAMIN B-1) TAB PO SCH (21:06)
[2019-01-10] MEDS: meTOprolol TARTRATE 25 MG (LOPRESSOR) TABLET PO SCH (21:06)
--- NOTE | 2019-01-10 21:06 | NUR ---
pt refused Jesus, b/p 112/54 Lopressor 12.5 given all meds crushed & given oral in pudding
--- NOTE | 2019-01-10 21:06 | NUR ---
lortab 7.5mg liq given for pain level 6/10 on numeric scale
[2019-01-10] MEDS: HYDROcodone/APAP 7.5MG-325 MG/15 ML (LORTAB) UDC PO PRN (21:09)
--- NOTE | 2019-01-10 21:15 | NUR ---
assessments & interventions completed, see assessments & interventions, gastric residual 2ml, tube feeding fs Glucerna 1.5 at 35ml/hr with 100ml water flush q 4hrs
[2019-01-10] MEDS: LIDOCAINE PATCH REMOVAL TP SCH (21:20)
[2019-01-11] MEDS: SUCRALFATE 1 GM (CARAFATE) TAB PO SCH ×4 (00:03→17:10)
[2019-01-11 05:50] VITALS: BP 135/71
[2019-01-11] MEDS: FERROUS SULFATE ORAL LIQUID 44 MG/ML ML PO SCH (06:21)
[2019-01-11] MEDS: NIACIN 500 MG TABLET PO SCH ×2 (06:21→17:10)
[2019-01-11] MEDS: CATHETER FLUSH 10 ML SYR IV SCH ×3 (06:24→20:54)
[2019-01-11] MEDS: WATER PO SCH ×3 (06:38)
[2019-01-11] MEDS: [UNRECOGNIZED DRUG - OTHER] PO SCH ×3 (06:38)
[2019-01-11] MEDS: SODIUM BICARBONATE PO SCH ×3 (06:38)
[2019-01-11] MEDS: STERILE FOR IRRIGATION PO SCH ×3 (06:38)
[2019-01-11] MEDS: inSUlin ASPART (NovoLOG) 1 UNIT/0.01 ML (CHARGE PER UNIT) SC SCH ×4 (07:10→20:53)
--- NOTE | 2019-01-11 07:15 | NUR ---
bedside report given to SUZANNA WELLS
[2019-01-11] MEDS: LACTOBACILLUS ACIDOPHILUS (PROBIOTIC) CAPSULE PO SCH ×2 (09:06→20:35)
[2019-01-11] MEDS: FOLIC ACID 1 MG TAB PO SCH (09:06)
[2019-01-11] MEDS: meTOprolol TARTRATE 25 MG (LOPRESSOR) TABLET PO SCH ×2 (09:06→20:35)
[2019-01-11] MEDS: LIDOCAINE 4% (SALONPAS) PATCH TOP SCH (09:06)
[2019-01-11] MEDS: SILDENAFIL 20 MG (REVATIO) TAB NON-FORMULARY PO SCH ×3 (09:06→20:36)
[2019-01-11] MEDS: OMEGA 3 (FISH OIL) 1000 MG CAP PO SCH ×2 (09:06→20:35)
[2019-01-11] MEDS: ASPIRIN E.C. 325 MG (ECOTRIN) TABLET PO SCH (09:06)
[2019-01-11] MEDS: MULTIVIT W/MINERALS TAB (THERAGRAN M) PO SCH (09:07)
[2019-01-11] MEDS: SENNA W/DOCUSATE (SENOKOT S) TABLET PO SCH ×2 (09:07→19:55)
[2019-01-11] MEDS: ASCORBIC ACID (VIT C) 500 MG TABLET PO SCH (09:07)
[2019-01-11] MEDS: THIAMINE 100 MG (VITAMIN B-1) TAB PO SCH ×2 (09:07→20:35)
--- NOTE | 2019-01-11 09:09 | PM&R Progress Note ---
Subjective HPI/CC On Admission Date Seen by Provider: Jan 11, 2019 Time Seen by Provider: 09:15 Chief complaint: Critical illness myopathy HPI: This is a 78yoWF known to me from ICU 9 hospital stay after a massive GI bleed requiring surgery by Dr. Talamantes who was ultimately transferred to [place] on a ventilator, took three weeks to wean off, had trach placed peg tube for tube feedings and has resulted in severe weakness in need of inpatient rehab, she is doing very well, having a speaking valve on her trach and is not capped at this point because she is so fatigued. Dr. Ding is the car dumper operator helper who is working with her and is not comfortable capping the trach right now. She is eating 25-50% of the meals, she is receiving nocturnal tube feedings to supplement and overall she has severe weakness and will ultimately return home with her to continue recovery after inpatient rehab works on her strength. Subjective/Events-last exam Pt was switched to oral pills instead of peg tube. Tube feeding has been decreased to 35 and I likely will discontinue that tomorrow. Dietary consult will continue calorie count. Dina lift is helping her since she is max assist. Will need to continue working with intensive therapy, hopefully will remove the trach and the peg tube prior to discharge but we will talk to the to evaluate what his thoughts are prior to discharge planning. Reviewed therapy notes. Conferred with RN. Review of Systems General: Fatigue, Malaise Objective Exam Vital Signs Vital Signs Date Time Temp Pulse Resp B/P (MAP) Pulse Ox O2 Delivery O2 Flow Rate FiO2 01/11/19 17:38 98.2 94 16 130/73 (92) 97 Room Air 01/11/19 08:24 6.00 28 Capillary Refill : Less Than 3 Seconds General Appearance: No Apparent Distress, WD/WN, Chronically ill, Thin HEENT: PERRL/EOMI, Normal ENT Inspection, Pharynx Normal, Moist Mucous Membranes, Other (trach in place) Neck: Full Range of Motion, Normal Inspection, Non Tender, Supple Respiratory: Chest Non Tender, Lungs Clear, No Accessory Muscle Use, No Respiratory Distress, Decreased Breath Sounds Cardiovascular: Regular Rate, Rhythm, No Edema, No Gallop, No JVD, No Murmur Gastrointestinal: Normal Bowel Sounds, No Organomegaly, No Pulsatile Mass, Non Tender, Soft, Other (PEG in place) Back: Normal Inspection, No CVA Tenderness, No Vertebral Tenderness Extremity: Normal Capillary Refill, Normal Inspection, Normal Range of Motion, Non Tender, No Calf Tenderness, No Pedal Edema Neurologic/Psychiatric: Alert, Oriented x3, Normal Mood/Affect, assistant general manager II-XII Norm as Tested, Motor Weakness (3/5 all extremities) Skin: Normal Color, Warm/Dry Lymphatic: No Adenopathy Results/Procedures Lab Patient resulted labs reviewed. FIM Transfers Therapy Code Descriptions/Definitions Functional [place] Measure: 0=Not Assessed/NA 4=Minimal Assistance 1=Total Assistance 5=Supervision or Setup 2=Maximal Assistance 6=Modified [place] 3=Moderate Assistance 7=Complete [place] Therapy Quality Codes: 6 Independent with activity with or without an assistive device 5 Patient requires set up or clean up by helper. Patient completes activity by themselves 4 Supervision or touching assist (CGA). [place] provide cues , steadying assist 3 The helper provides less than half the effort to complete the activity 2 The helper provides more than half the effort to complete the activity 1 Dependent. The helper does all the effort to complete an activity 7 Patient refused to complete or attempt activity 9 The patient did not perform the activity before the current illness or injury 88 Not attempted due to Medical conditions or safety concerns Transfers (B, C, W/C) (FIM): 1 (SB X 2 person assist ) Scootin Rollin Roll Left to Right (QC): 1 Supine to/from Sit: 1 Sit to/from Stand: 1 Sit to Lying (QC): 1 Sit to Stand (QC): 1 Chair/[id number] Xfer(QC): 1 Bed to/from Chair: 1 Car Transfer (QC): 88 Gait Training Does the Patient Walk?: No and Walking Goal IS indicated Gait (FIM): 0 (unable to stand at this time. ) Distance (FIM): 0=does not occure Walk 10 feet (QC): 88 Walk 50 ft with 2 Turns(QC): 88 Walk 150 ft (QC): 88 Walking 10ft/uneven surface-QC: 88 Wheelchair Training Does the Pt Use a Wheelchair?: Yes Wheelchair (FIM): 1 Wheelchair Distance: 1=up to 49 ft (15ftx4) Wheelchair Level of Assist: 3 Type of Wheelchair: Manual Stair Training Stairs (FIM): 0 1 Step (curb) (QC): 88 4 Steps (QC): 88 12 Steps (QC): 88 Balance Picking up an Object (QC): 88 Mental Status/Objective Comprehension: 7 Expression: 7 Social Interaction: 7 Problem Solvin Memory: 7 ADL-Treatment Feedin Eating (QC): 4 Groomin (pt demo ability to wash face. pt required assist to wash hair and comb hair ) Oral Hygiene (QC): 2 Bathin Bathing Location: L Arm, R Arm, Chest, Abdomen Shower/Bathe Self (QC): 2 Upper Extremity Dressin (required TA to apply jacket. ) Upper Body Dressing (QC): 1 Lower Extremity Dressin Lower Body Dressing (QC): 1 (underpants, pants) On/Off Footwear (QC): 1 (ayush socks ) Toiletin Toileting Hygiene (QC): 1 Toilet/Commode Transfer: 1 (SB X 2 person assist ) Toilet Transfer (QC): 1 (SB X 2 person assist ) Shower: 1 (SB X 2 person assist ) Assessment/Plan Assessment and Plan Assess & Plan/Chief Complaint Assessment: Myopathy (1) s/p Ventilator dependence Status: Acute (2) s/p Respiratory failure Status: Acute (3) Anemia due to acute blood loss Status: Acute (4) GERD (gastroesophageal reflux disease) Status: Chronic (5) Dementia Status: Chronic (6) s/p Acute GI bleeding Status: Acute (7) Weakness Status: Acute (8) s/p Transfusion of blood during current hospitalization Status: Acute (9) h/o Pyloric ulcer Status: Acute (10) Trach in place (11) PEG in place with TF at night Plan: Monitor closely TF at night but calorie count will be started in order to DC TF and PEG and will decrease rate today from 70 to 35 and likely DC tomorrow completely Continue all meds as ordered Reviewed labs Appreciate Dr Lozada Full code at 's request Unsure of the recoverability of this patient may ultimately need NHP Patient slow to improve but appears to be motivated Stop daily labs (1) Myopathy (2) GERD (gastroesophageal reflux disease) (3) Ventilator dependence (4) Hyperkalemia (5) Dementia (6) Pyloric ulcer (7) Tracheostomy in place (8) Transfusion history BO SUÁREZ DO Jan 11, 2019 09:09
[2019-01-11] MEDS ORDERED: HYDROCORTISONE 2.5% CREAM (ANUSOL-HC) 30 GM TOP PRN (09:15)
--- NOTE | 2019-01-11 11:03 | Occupational Ther Daily Note ---
OT Current Status-Daily Note Subjective pt laying in bed upon O T arrival. pt agreed to OT/ PT tx session with focus on increase functional transfers, sitting balance, UE reaching, and overall activity tolerance for daily activities. pt reports neck in "popping" pt this was PLOF Mental Status/Objective Therapy Code Descriptions/Definitions Functional [place] Measure: 0=Not Assessed/NA 4=Minimal Assistance 1=Total Assistance 5=Supervision or Setup 2=Maximal Assistance 6=Modified [place] 3=Moderate Assistance 7=Complete [place] ADL-Treatment Therapy Code Descriptions/Definitions Functional [place] Measure: 0=Not Assessed/NA 4=Minimal Assistance 1=Total Assistance 5=Supervision or Setup 2=Maximal Assistance 6=Modified [place] 3=Moderate Assistance 7=Complete [place] Therapy Quality Codes: 6 Independent with activity with or without an assistive device 5 Patient requires set up or clean up by helper. Patient completes activity by themselves 4 Supervision or touching assist (CGA). [place] provide cues , steadying assist 3 The helper provides less than half the effort to complete the activity 2 The helper provides more than half the effort to complete the activity 1 Dependent. The helper does all the effort to complete an activity 7 Patient refused to complete or attempt activity 9 The patient did not perform the activity before the current illness or injury 88 Not attempted due to Medical conditions or safety concerns Lower Body Dressing (FIM): 1 (mukund sokc,s brief, and pants ) Lower Body Dressing (QC): 1 On/Off Footwear (QC): 1 Toileting (FIM): 1 Transfers (B, C, W/C) (FIM): 1 (scoot pivot ) Other Treatment PT/OT co-treat completed due to complexity of pt deficits requiring skills of both disciplines for TX session and safety of pt due to lack of strength/ coordination and activity tolerance at this time. PT focus on dynamic/static Seated Balance & core strengthening.. OT focus on UE placement/ sequencing, and reaching activity. pt demo incontinence at time of therapy arrival. pt required TA for toilet hygiene and LB dressing. pt required MAX A to perform rolling R<> L. OT provided tactile cuing/ hand position while PT focused on gross movement/ LE positioning. noted increase use of UE placement during rolling. pt required TA for R LE placement and MIN A for LLE placement during functional rolling. pt required MAX A to perform supine to sit with HOB elevated to approx 85 degrees. pt demo ability to move LLE toward EOB but required T for RLE movement and truck control. scoot pivot transfer from bed to w/c completed TA. pt education on use of W/C/ proper hand placement. OT provided hand over hand placement to increase UE strength for self propelling while PT focused on gross movement/ stirring of w/c. pt demo ability to propel w/c 25 ft in 4 minutes 35 seconds and 30 ft 3 minutes, 50 seconds. pt then transported to TX gym and transferred to MAT table TA. pt maintain bale to static sit with CGA for 1 minutes 35 seconds then required TA. pt perform truck control tasks and lateral cross by witting on mirror with left hand and maintaining balance. . pt then transferred back to re cliner chair with TA. pt education on standing/ proper hand placement while in parallel bars. pt demo stand with TA X2 noted Mukund knee buckling. pt transported back to room resting at end of tx with all needs met, call light in hand. Education OT Patient Education: Correct positioning, Energy conservation, Progress toward Goal/Update tx plan, Purpose of tx/functional activities, Reviewed precautions, Safety issues, Transfer techniques Teaching Recipient: Patient Teaching Methods: Demonstration, Discussion Response to Teaching: Verbalize Understanding, Return Demonstration OT Short Term Goals Short Term Goals Eating(FIM): 3 Grooming(FIM): 3 Bathing(FIM): 3 Upper Body Dressing(FIM): 3 Lower Body Dressing(FIM): 3 Toileting(FIM): 3 Transfers (B,C,W/C) (FIM): 3 Toilet/Commode Transfer(FIM): 3 Shower Transfer(FIM): 3 1=Demonstrate adherence to instructed precautions during ADL tasks. 2=Patient will verbalize/demonstrate understanding of assistive de vices/modifications for ADL. 3=Patient will improve strength/tolerance for activity to enable patient to perform ADL's. OT Recruiting Specialist Goals Recruiting Specialist Goals Eating (FIM): 6 Eating (QC): 6 Groomin Oral Hygiene (QC): 6 Bathing(FIM): 5 Bathing Location: L Arm, R Arm, L Upper Leg, R Upper Leg, L Lower Leg (including foot), R Lower Leg (including foot), Chest, Abdomen, Buttocks, Perineal Area Shower/Bathe Self (QC): 5 Upper Body Dressing(FIM): 5 Upper Body Dressing (QC): 5 Lower Body Dressing(FIM): 5 Lower Body Dressing (QC): 5 On/Off Footwear (QC): 5 Toileting(FIM): 5 Toileting Hygiene (QC): 5 Transfers (B,C,W/C) (FIM): 5 Toilet/Commode Transfer(FIM): 5 Toilet/Commode Transfer (QC): 5 Shower Transfer(FIM): 5 Additional Goals: 1-Demonstrate ADL Tasks, 2-Verbalize Understanding, 3- ImproveStrength/Ralph 1=Demonstrate adherence to instructed precautions during ADL tasks. 2=Patient will verbalize/demonstrate understanding of assistive devices/modifications for ADL. 3=Patient will improve strength/tolerance for activity to enable patient to perform ADL's. OT Education/Plan Problem List/Assessment Assessment: Decreased Activ Tolerance, Decreased Safety Aware, Decreased UE Strength, Dependent Transfers, Impaired Bed Mobility, Impaired Cognition, Impaired Coordination, Impaired Funct Balance, Impaired I ADL's, Impaired Self- Care Skills pt presents with functional limitations affecting areas of ADLs and functional transfers with the above mention. pt would benefit from skilled OT services to address above mention deficits and to increase independence with ADLs and functional transfers. Discharge Recommendations Plan/Recommendations: Continue POC Barriers to Progress incontinence, Treatment Plan/Plan of Care Treatment,Training & Education: Yes Patient would benefit from OT for education, treatment and training to promote independence in ADL's, mobility, safety and/or upper extremity function for ADL's. Plan of Care: ADL Retraining, Caregiver Training, Cognitive Retraining, Concurrent Therapy, Functional Mobility, Group Exercise/Act as Ind, UE Funct Exercise/Act Treatment Duration: Feb 09, 2019 Frequency: At least 5 of 7 days/Wk (IRF) Estimated Hrs Per Day: 1 hour per day (60-90 minutes per day ) Agreement: Yes Rehab Potential: Fair Time/GCodes Start Time: 09:15 Stop Time: 10:45 Billed Treatment Time ADL 25 minutes, 2 units FA 65 minutes 4 units ANGELY CHOUDHURY OT Jan 11, 2019 11:03
--- NOTE | 2019-01-11 11:07 | Physical Therapy Daily Note ---
PT Daily Note-Current Subjective Pt laying Supine in bed upon arrival. Pt agrees to PT/OT co-treat. Pain Comment: Pt doesn't rate but reports generalized pain, neck popping which is PLOF. Mental Status Patient Orientation: Person, Place, Situation Attachments: PEG Tube Transfers Therapy Code Descriptions/Definitions Functional [place] Measure: 0=Not Assessed/NA 4=Minimal Assistance 1=Total Assistance 5=Supervision or Setup 2=Maximal Assistance 6=Modified [place] 3=Moderate Assistance 7=Complete [place] Therapy Quality Codes: 6 Independent with activity with or without an assistive device 5 Patient requires set up or clean up by helper. Patient completes activity by themselves 4 Supervision or touching assist (CGA). [place] provide cues , steadying assist 3 The helper provides less than half the effort to complete the activity 2 The helper provides more than half the effort to complete the activity 1 Dependent. The helper does all the effort to complete an activity 7 Patient refused to complete or attempt activity 9 The patient did not perform the activity before the current illness or injury 88 Not attempted due to Medical conditions or safety concerns Scootin Rollin Roll Left to Right (QC): 2 Supine to/from Sit: 2 Sit to/from Stand: 2 Sit to Lying (QC): 2 Sit to Stand (QC): 2 Chair/Inu-cb-Xdadv Xfer(QC): 2 Bed to/from Chair: 2 Weight Bearing Right Lower Extremity: Right Full Weight Bearing Left Lower Extremity: Left Full Weight Bearing Wheelchair Training Does the Pt Use a Wheelchair?: Yes Wheelchair (FIM): 1 Wheelchair Distance: 1=352-56 ft Distance: 25', 30' Wheelchair Level of Assist: 1 Type of Wheelchair: Manual Pt needs stearing assistance throughout W/C mobility. Pt is given instruction but is unable to complete it. Exercises Supine Ex: Bridging, Rolling, Scooting Seated Therapy Exercises: Sit to stand Treatments PT/OT co-treat completed due to complexity of pt deficits requiring skills of both disciplines for TX session and safety of pt due to lack of strength/ coordination and activity tolerance at this time. PT focus on dynamic/static Seated Balance & core strengthening. OT focus on UE placement/ sequencing, and reaching activity. Pt demo incontinence at time of therapy arrival. Pt required TA for toilet hygiene and LB dressing. Pt required MAX A to perform rolling R<> L. OT provided tactile cuing/ hand position while PT focused on gross movement/ LE positioning. noted increase use of UE placement during rolling. Pt required TA for R LE placement and MIN A for LLE placement during functional rolling. Pt required MAX A to perform supine to sit with HOB elevated to approx 85 degrees. Pt demo ab ility to move LLE toward EOB but required T for RLE movement and truck control. scoot pivot transfer from bed to w/c completed TA. Pt education on use of W/C/ proper hand placement. OT provided hand over hand placement to increase UE strength for self propelling while PT focused on gross movement/ stirring of w/c. Pt demo ability to propel w/c 25 ft in 4 minutes 35 seconds and 30 ft 3 minutes, 50 seconds. Pt then transported to TX gym and transferred to MAT table TA. Pt maintain bale to static sit with CGA for 1 minutes 35 seconds then required TA. Pt perform truck control tasks and lateral cross by witting on mirror with left hand and maintaining balance. Pt then transferred back to recliner chair with TA. Pt education on standing/proper hand placement while in //bars. Pt demo stand with TA X2 noted Mukund knee buckling. Pt transported back to room resting at end of tx with all needs met, call light in hand. Assessment Current Status: Good Progress Pt demonstrated improved core strength and sitting balance. Pt still remains weak and Max A with transfers. Pt is anxious and sometimes fearful during transfers, better w/o slide board & using SPT instead. PT Short Term Goals Short Term Goals Time Frame: Jan 19, 2019 Transfers (B,C,W/C) (FIM): 3 Gait (FIM): 2 Distance (FIM): 2=565-50 ft Gait Assistive Device: FWW PT Halfway Goals Halfway Goals PT Halfway Goals Time Frame: Feb 02, 2019 Transfers (B,C,W/C) (FIM): 6 Sit to Lying (QC): 6 Lying-Sitting on Side/Bed(QC): 6 Sit to Stand (QC): 6 Rollin Roll Left to Right (QC): 6 Chair/Fca-ee-Qvbdc Xfer(QC): 6 Car Transfer (QC): 5 Does the Patient Walk: No and Walking Goal IS indicated Gait (FIM): 5 Gait distance (FIM): 8=659-24 ft Walk 10 feet (QC): 5 Walk 10ft-Uneven Surface(QC): 5 Walk 50ft with 2 Turns (QC): 5 Walk 150 ft (QC): 4 Gait Assistive Device: FWW Does the Pt use WC or Scooter?: No Stairs (FIM): 2 # of Steps: 4 1 Step (curb) (QC): 5 4 Steps (QC): 4 12 Steps (QC): 88 Picking up an Object (QC): 88 PT Plan Problem List Problem List: Activity Tolerance, Functional Strength, Safety, Balance, Transfer Treatment/Plan Treatment Plan: Continue Plan of Care Treatment Plan: Bed Mobility, Education, Functional Activity Ralph, Functional Strength, Group Therapy, Gait, Safety, Therapeutic Exercise, Transfers Treatment Duration: Feb 02, 2019 Frequency: At least 5 of 7 days/Wk (IRF) Estimated Hrs Per Day: 1.5 hours per day Patient and/or Family Agrees t: Yes Safety Risks/Education Patient Education: Transfer Techniques, Correct Positioning, W/C Management, Safety Issues Teaching Recipient: Patient Teaching Methods: Discussion Response to Teaching: Verbalize Understanding Time/GCodes Time In: 915 Time Out: 1045 Total Billed Treatment Time: 90 Total Billed Treatment 1, FA x6 (90m) G Codes Necessary: PIERRE Arboleda CORPORATE REAL ESTATE MANAGER Jan 11, 2019 11:07
[2019-01-11] MEDS: ROFLUMILAST 500 MCG TAB (DALIRESP) PO SCH (14:27)
[2019-01-11] MEDS: HYDROcodone/APAP 7.5MG-325 MG/15 ML (LORTAB) UDC PO PRN ×2 (14:31→20:38)
--- NOTE | 2019-01-11 15:04 | Pulmonary Progress Note ---
Sepsis Event Evaluation Height, Weight, BMI Height: 5'2.00" Weight: 114lbs. 0.0oz. 51.279367jq; 20.9 BMI Method:Actual Exam Exam Vital Signs Date Time Temp Pulse Resp B/P (MAP) Pulse Ox O2 Delivery O2 Flow Rate FiO2 01/11/19 09:00 Room Air 01/11/19 08:24 99 Trach Collar 6.00 28 01/11/19 05:50 97.9 94 18 135/71 (92) 99 Trach Collar 28.00 01/10/19 21:15 100 Trach Collar 28 01/10/19 21:00 96 18 112/54 (73) 100 Trach Collar 28.00 01/10/19 20:54 Trach Collar 6.00 28 01/10/19 17:17 Room Air 01/10/19 16:35 96.2 92 14 116/74 (88) 95 Room Air I & O 01/11/19 07:00 Intake Total 2030 ml Balance 2030 ml Height & Weight Height: 5'2.00" Weight: 114lbs. 0.0oz. 51.232489hk; 20.9 BMI Method:Actual General Appearance: No Apparent Distress, WD/WN, Chronically ill, Thin HEENT: PERRL/EOMI, Normal ENT Inspection, Pharynx Normal, Moist Mucous Membranes, Other (trach in place) Neck: Full Range of Motion, Normal Inspection, Non Tender, Supple Respiratory: Chest Non Tender, Lungs Clear, No Accessory Muscle Use, No Respiratory Distress, Decreased Breath Sounds Cardiovascular: Regular Rate, Rhythm, No Edema, No Gallop, No JVD, No Murmur Capillary Refill: Less Than 3 Seconds Gastrointestinal: normal bowel sounds, non tender, soft Extremity: Normal Capillary Refill, Normal Inspection, Normal Range of Motion, Non Tender, No Calf Tenderness, No Pedal Edema Neurologic/Psychiatric: Alert, Oriented x3, Normal Mood/Affect, wigs salesperson II-XII Norm as Tested, Motor Weakness (3/5 all extremities) Skin: Normal Color, Warm/Dry Lymphatic: No Adenopathy ARJUN MEADE DO Jan 11, 2019 15:04
--- NOTE | 2019-01-11 15:31 | Speech Therapy Daily Note ---
Speech Daily Progress Note Subjective Date Seen by Provider: Jan 11, 2019 Time Seen by Provider: 00:30 The patient was resting in her bed when I entered her room. She participated well with therapy today. Objective The patient utilized compensatory strategies for safe intake at 90% with minimal cues. Assessment Assessment Current Status: Good Progress Treatment Plan Continue Plan of Care Communication Comprehension: 7 Expression: 7 Social Cognition Social Interaction: 7 Problem Solvin Memory: 7 Speech Short Term Goals Short Term Goals Short Term Goals 1) The patient will tolerate the least restrictive diet level without s/s of aspiration at 90% with minimal verbal cues. 2) The patient will utilize compensatory strategies as trained for safe oral intake at 90% or greater with minimal verbal cues. Speech Halfway Goals School Superintendent Goals The patient will maintain adequate nutrition/hydration via safe effective swallow function with PEG tube as needed. Speech-Plan Patient/Family Goals Patient/Family Goals: The patient plans on returning home with her post rehab. Treatment Plan Speech Therapy Treatment Plan: Continue Plan of Care The patient is progressing well with safe oral intake. Her night time PEG feedings have been reduced to 1/2. Treatment Duration: Jan 27, 2019 Frequency: 5 times per week Estimated Hrs Per Day: .5 hour per day Rehab Potential: Fair Barriers to Learning: Patient has a complex medical status. Pt/Family Agrees to Plan: Yes Safety Risks/Education Teaching Recipient: Patient Teaching Methods: Discussion Response to Teaching: Verbalize Understanding Education Topics Provided: Continued safety of oral intake. Time Speech Therapy Time In: 14:30 Speech Therapy Time Out: 15:00 Total Billed Time: 30 Billed Treatment Time 1, LACHO SHIRLENE Gunn Jan 11, 2019 15:31
--- NOTE | 2019-01-11 16:30 | NUR ---
HAND IRONER met with patient to review team conference summary. Patient remains to be incontinent of bowel and bladder and continues to require max assist with all activity. Patient has been upgraded to a mechanical soft with thin liquid diet and nocturnal tube feeding rate have been decreased as patient's oral intake has improved. Patient is now able to take crushed meds, orally. Due to continual need for improvement,Team is recommended patient be reevaluated at next team conference on 01/18. Patient is agreeable to this. HAND IRONER will continue to follow for additional needs.
[2019-01-11] MEDS: ENOXAPARIN 40 MG/0.4 ML (LOVENOX) SYR SC SCH (16:52)
[2019-01-11 17:38] VITALS: BP 130/73
--- NOTE | 2019-01-11 18:00 | NUR ---
CONTINUES TO DO WELL TAKING PO MEDS CRUSHED IN PUDDING. 4 DIARRHEA STOOLS TODAY - WILL START ON IMODIUM. TOLERATING TUBE FEEDING WELL. EATING NEARLY 100% OF MEALS AND CALORIE COUNT CONTINUES. DRINKING BETTER TODAY, BUT WATER BOLUS' CONTINUE PER PEG.
[2019-01-11] MEDS: LOPERAMIDE 2 MG (IMODIUM) TABLET PO PRN (20:35)
[2019-01-11] MEDS: LIDOCAINE PATCH REMOVAL TP SCH (20:53)
[2019-01-12] MEDS: SUCRALFATE 1 GM (CARAFATE) TAB PO SCH ×5 (00:55→23:43)
[2019-01-12] MEDS: CATHETER FLUSH 10 ML SYR IV SCH ×3 (05:16→20:26)
[2019-01-12 05:21] VITALS: BP 129/76
[2019-01-12] MEDS: [UNRECOGNIZED DRUG - OTHER] PO SCH ×3 (05:49)
[2019-01-12] MEDS: STERILE FOR IRRIGATION PO SCH ×3 (05:49)
[2019-01-12] MEDS: NIACIN 500 MG TABLET PO SCH ×2 (05:49→17:37)
[2019-01-12] MEDS: inSUlin ASPART (NovoLOG) 1 UNIT/0.01 ML (CHARGE PER UNIT) SC SCH ×4 (05:49→20:44)
[2019-01-12] MEDS: SODIUM BICARBONATE PO SCH ×3 (05:49)
[2019-01-12] MEDS: WATER PO SCH ×3 (05:49)
--- NOTE | 2019-01-12 08:04 | PM&R Progress Note ---
Subjective HPI/CC On Admission Date Seen by Provider: Jan 12, 2019 Time Seen by Provider: 07:30 Chief complaint: Critical illness myopathy HPI: This is a 78yoWF known to me from ICU 9 hospital stay after a massive GI bleed requiring surgery by Dr. Talamantes who was ultimately transferred to [place] on a ventilator, took three weeks to wean off, had trach placed peg tube for tube feedings and has resulted in severe weakness in need of inpatient rehab, she is doing very well, having a speaking valve on her trach and is not capped at this point because she is so fatigued. Dr. Ding is the print support specialist who is working with her and is not comfortable capping the trach right now. She is eating 25-50% of the meals, she is receiving nocturnal tube feedings to supplement and overall she has severe weakness and will ultimately return home with her to continue recovery after inpatient rehab works on her strength. Subjective/Events-last exam We will discontinue tube feedings tonight which is a big step for her. Feeding herself. Eating and drinking well. Pain is minimal. Bowels continue to be loose from the tube feedings. Denies any other significant SOB or chest pain. Dramatic improvement, slowly recovering. Reviewed therapy notes. Conferred with RN. Review of Systems General: Fatigue Objective Exam Vital Signs Vital Signs Date Time Temp Pulse Resp B/P (MAP) Pulse Ox O2 Delivery O2 Flow Rate FiO2 01/12/19 20:00 Room Air 01/12/19 16:20 97.5 93 16 101/60 (74) 100 01/11/19 23:33 6.00 28 Capillary Refill : Less Than 3 Seconds General Appearance: No Apparent Distress, WD/WN, Chronically ill, Thin HEENT: PERRL/EOMI, Normal ENT Inspection, Pharynx Normal, Moist Mucous Membranes, Other (trach in place) Neck: Full Range of Motion, Normal Inspection, Non Tender, Supple Respiratory: Chest Non Tender, Lungs Clear, No Accessory Muscle Use, No Respiratory Distress, Decreased Breath Sounds Cardiovascular: Regular Rate, Rhythm, No Edema, No Gallop, No JVD, No Murmur Gastrointestinal: Normal Bowel Sounds, No Organomegaly, No Pulsatile Mass, Non Tender, Soft, Other (PEG in place) Back: Normal Inspection, No CVA Tenderness, No Vertebral Tenderness Extremity: Normal Capillary Refill, Normal Inspection, Normal Range of Motion, Non Tender, No Calf Tenderness, No Pedal Edema Neurologic/Psychiatric: Alert, Oriented x3, Normal Mood/Affect, print journalist II-XII Norm as Tested, Motor Weakness (3/5 all extremities) Skin: Normal Color, Warm/Dry Lymphatic: No Adenopathy Results/Procedures Lab Patient resulted labs reviewed. FIM Transfers Therapy Code Descriptions/Definitions Functional [place] Measure: 0=Not Assessed/NA 4=Minimal Assistance 1=Total Assistance 5=Supervision or Setup 2=Maximal Assistance 6=Modified [place] 3=Moderate Assistance 7=Complete [place] Therapy Quality Codes: 6 Independent with activity with or without an assistive device 5 Patient requires set up or clean up by helper. Patient completes activity by themselves 4 Supervision or touching assist (CGA). [place] provide cues , steadying assist 3 The helper provides less than half the effort to complete the activity 2 The helper provides more than half the effort to complete the activity 1 Dependent. The helper does all the effort to complete an activity 7 Patient refused to complete or attempt activity 9 The patient did not perform the activity before the current illness or injury 88 Not attempted due to Medical conditions or safety concerns Transfers (B, C, W/C) (FIM): 1 (scoot pivot ) Scootin Rollin Roll Left to Right (QC): 2 Supine to/from Sit: 2 Sit to/from Stand: 2 Sit to Lying (QC): 2 Sit to Stand (QC): 2 Chair/Fbq-dg-Vicbx Xfer(QC): 2 Bed to/from Chair: 2 Car Transfer (QC): 88 Gait Training Does the Patient Walk?: No and Walking Goal IS indicated Gait (FIM): 0 (unable to stand at this time. ) Distance (FIM): 0=does not occure Walk 10 feet (QC): 88 Walk 50 ft with 2 Turns(QC): 88 Walk 150 ft (QC): 88 Walking 10ft/uneven surface-QC: 88 Wheelchair Training Does the Pt Use a Wheelchair?: Yes Wheelchair (FIM): 1 Wheelchair Distance: 5=151-38 ft Distance: 25', 30' Wheelchair Level of Assist: 1 Type of Wheelchair: Manual Stair Training Stairs (FIM): 0 1 Step (curb) (QC): 88 4 Steps (QC): 88 12 Steps (QC): 88 Balance Picking up an Object (QC): 88 Mental Status/Objective Comprehension: 7 Expression: 7 Social Interaction: 7 Problem Solvin Memory: 7 ADL-Treatment Feedin Eating (QC): 4 Groomin (pt demo ability to wash face. pt required assist to wash hair and comb hair ) Oral Hygiene (QC): 2 Bathin Bathing Location: L Arm, R Arm, Chest, Abdomen Shower/Bathe Self (QC): 2 Upper Extremity Dressin (required TA to apply jacket. ) Upper Body Dressing (QC): 1 Lower Extremity Dressin (ayush sokc,s brief, and pants ) Lower Body Dressing (QC): 1 On/Off Footwear (QC): 1 Toiletin Toileting Hygiene (QC): 1 Toilet/Commode Transfer: 1 (SB X 2 person assist ) Toilet Transfer (QC): 1 (SB X 2 person assist ) Shower: 1 (SB X 2 person assist ) Assessment/Plan Assessment and Plan Assess & Plan/Chief Complaint Assessment: Myopathy (1) s/p Ventilator dependence Status: Acute (2) s/p Respiratory failure Status: Acute (3) Anemia due to acute blood loss Status: Acute (4) GERD (gastroesophageal reflux disease) Status: Chronic (5) Dementia Status: Chronic (6) s/p Acute GI bleeding Status: Acute (7) Weakness Status: Acute (8) s/p Transfusion of blood during current hospitalization Status: Acute (9) h/o Pyloric ulcer Status: Acute (10) Trach in place (11) PEG in place with TF at night Plan: Monitor closely TF DC Continue all meds as ordered Reviewed labs Appreciate Dr Lozada Full code at 's request Unsure of the recoverability of this patient may ultimately need NHP Patient slow to improve but appears to be motivated Stop daily labs (1) Myopathy (2) GERD (gastroesophageal reflux disease) (3) Ventilator dependence (4) Hyperkalemia (5) Dementia (6) Pyloric ulcer (7) Tracheostomy in place (8) Transfusion history BO SUÁREZ DO Jan 12, 2019 08:04
[2019-01-12] MEDS: LACTOBACILLUS ACIDOPHILUS (PROBIOTIC) CAPSULE PO SCH ×2 (08:30→20:16)
[2019-01-12] MEDS: MULTIVIT W/MINERALS TAB (THERAGRAN M) PO SCH (08:30)
--- NOTE | 2019-01-12 08:30 | NUR ---
Dr. Mcdonald here with orders to DC nocturnal tube feedings.
[2019-01-12] MEDS: meTOprolol TARTRATE 25 MG (LOPRESSOR) TABLET PO SCH ×2 (08:31→20:16)
[2019-01-12] MEDS: THIAMINE 100 MG (VITAMIN B-1) TAB PO SCH ×2 (08:31→20:16)
[2019-01-12] MEDS: ASCORBIC ACID (VIT C) 500 MG TABLET PO SCH (08:31)
[2019-01-12] MEDS: FOLIC ACID 1 MG TAB PO SCH (08:31)
[2019-01-12] MEDS: SENNA W/DOCUSATE (SENOKOT S) TABLET PO SCH ×2 (08:37→19:25)
[2019-01-12 08:41] VITALS: BP 110/60
[2019-01-12] MEDS: SILDENAFIL 20 MG (REVATIO) TAB NON-FORMULARY PO SCH ×3 (09:06→20:17)
[2019-01-12] MEDS: OMEGA 3 (FISH OIL) 1000 MG CAP PO SCH ×2 (09:06→20:16)
[2019-01-12] MEDS: LIDOCAINE 4% (SALONPAS) PATCH TOP SCH (09:09)
[2019-01-12] MEDS: SCOPOLAMINE 1.5 MG (TRANSDERM-SCOP) PATCH TOP SCH (09:11)
[2019-01-12] MEDS: SCOPOLAMINE PATCH REMOVAL TP SCH (09:12)
--- NOTE | 2019-01-12 09:51 | Speech Therapy Daily Note ---
Speech Daily Progress Note Subjective Date Seen by Provider: Jan 12, 2019 Time Seen by Provider: 00:30 The patient was resting in her bed after breakfast this am when I entered her room. Objective The patient completed oral intake of crushed meds in pudding without s/s of inspiration while utilizing compensatory strategies as trained at 90% with minimal cues. Assessment Assessment Current Status: Good Progress Communication Comprehension: 7 Expression: 7 Social Cognition Social Interaction: 7 Problem Solvin Memory: 7 Speech Short Term Goals Short Term Goals Short Term Goals 1) The patient will tolerate the least restrictive diet level without s/s of aspiration at 90% with minimal verbal cues. 2) The patient will utilize compensatory strategies as trained for safe oral intake at 90% or greater with minimal verbal cues. Speech Change Coordinator Goals Penitentiary Goals The patient will maintain adequate nutrition/hydration via safe effective swallow function with PEG tube as needed. Speech-Plan Patient/Family Goals Patient/Family Goals: The patient plans on returning home with her post rehab. Treatment Plan Speech Therapy Treatment Plan: Continue Plan of Care Patient has made good progress with meeting goals for safe oral intake. Treatment Duration: Jan 20, 2019 Frequency: 5 times per week Estimated Hrs Per Day: .5 hour per day Rehab Potential: Fair Barriers to Learning: Patient has a complex medical status. Pt/Family Agrees to Plan: Yes Safety Risks/Education Teaching Recipient: Patient Teaching Methods: Discussion Response to Teaching: Verbalize Understanding Education Topics Provided: Safety of oral intake. Time Speech Therapy Time In: 08:30 Speech Therapy Time Out: 09:00 Total Billed Time: 30 Billed Treatment Time 1LACHO SHIRLENE Gunn Jan 12, 2019 09:51
--- NOTE | 2019-01-12 10:04 | NUR ---
Switched to air mattress.
--- NOTE | 2019-01-12 11:15 | Occupational Ther Daily Note ---
OT Current Status-Daily Note Subjective pt agreed to OT/ PT TX session with focus on increase overall strength, bed mobility, and standing tolerance pr reports no pain this date. Mental Status/Objective Therapy Code Descriptions/Definitions Functional [place] Measure: 0=Not Assessed/NA 4=Minimal Assistance 1=Total Assistance 5=Supervision or Setup 2=Maximal Assistance 6=Modified [place] 3=Moderate Assistance 7=Complete [place] ADL-Treatment Therapy Code Descriptions/Definitions Functional [place] Measure: 0=Not Assessed/NA 4=Minimal Assistance 1=Total Assistance 5=Supervision or Setup 2=Maximal Assistance 6=Modified [place] 3=Moderate Assistance 7=Complete [place] Therapy Quality Codes: 6 Independent with activity with or without an assistive device 5 Patient requires set up or clean up by helper. Patient completes activity by themselves 4 Supervision or touching assist (CGA). [place] provide cues , steadying assist 3 The helper provides less than half the effort to complete the activity 2 The helper provides more than half the effort to complete the activity 1 Dependent. The helper does all the effort to complete an activity 7 Patient refused to complete or attempt activity 9 The patient did not perform the activity before the current illness or injury 88 Not attempted due to Medical conditions or safety concerns Lower Body Dressing (QC): 1 On/Off Footwear (QC): 1 Transfers (B, C, W/C) (FIM): 1 Other Treatment PT/OT co-treat completed due to complexity of pt deficits requiring skills of both disciplines for TX session and safety of pt due to lack of strength/ coordination and activity tolerance at this time that could not be fulfilled by a rehab liaison. PT focus on LE positioning, gross movement, while OT focus on UE placement/ sequencing. pt required TA for LB dressing (pants, mukund socks). pt required MAX A to perform rolling R<> L. OT provided 75% tactile cuing/ hand position. noted increase initiation this date . pt required MAX A to perform supine to sit with HOB elevated to approx 75 degrees. pt demo ability to move LLE toward EOB but required TA to advance RLE. pt required hand over hand placement of Mukund UE. noted TA for truck positioning. .transfer from bed to w/c completed TA. pt re- education on use of W/C/ proper hand placement. noted no carry through of trained techniques from day prior. OT provided hand over hand placement to increase UE strength for self propelling while PT focused on gross movement/ stirring of w/c. noted significant weakness on R side of body compared to Left side. pt demo ability to propel w/c 25 ft in 5 minutes 33 seconds. pt education on standing frame. noted 4 trails on standing frame .full stand limited by by fear and weakness. pt required MAX encouragement to continue with skilled task. pt then transferred back to recliner chair with TA. . pt transported back to room resting at end of tx with all needs met, call light in hand. Education OT Patient Education: Correct positioning, Energy conservation, Progress toward Goal/Update tx plan, Purpose of tx/functional activities, Reviewed precautions, Rehab process, Safety issues, Transfer techniques, Use of adapted equipment Teaching Recipient: Patient Teaching Methods: Demonstration, Discussion Response to Teaching: Verbalize Understanding, Return Demonstration OT Short Term Goals Short Term Goals Eating(FIM): 3 Grooming(FIM): 3 Bathing(FIM): 3 Upper Body Dressing(FIM): 3 Lower Body Dressing(FIM): 3 Toileting(FIM): 3 Transfers (B,C,W/C) (FIM): 3 Toilet/Commode Transfer(FIM): 3 Shower Transfer(FIM): 3 1=Demonstrate adherence to instructed precautions during ADL tasks. 2=Patient will verbalize/demonstrate understanding of assistive devices/modifications for ADL. 3=Patient will improve strength/tolerance for activity to enable patient to perform ADL's. OT Membership Sales Representative Goals Nursing Home Goals Eating (FIM): 6 Eating (QC): 6 Groomin Oral Hygiene (QC): 6 Bathing(FIM): 5 Bathing Location: L Arm, R Arm, L Upper Leg, R Upper Leg, L Lower Leg (including foot), R Lower Leg (including foot), Chest, Abdomen, Buttocks, Perineal Area Shower/Bathe Self (QC): 5 Upper Body Dressing(FIM): 5 Upper Body Dressing (QC): 5 Lower Body Dressing(FIM): 5 Lower Body Dressing (QC): 5 On/Off Footwear (QC): 5 Toileting(FIM): 5 Toileting Hygiene (QC): 5 Transfers (B,C,W/C) (FIM): 5 Toilet/Commode Transfer(FIM): 5 Toilet/Commode Transfer (QC): 5 Shower Transfer(FIM): 5 Additional Goals: 1-Demonstrate ADL Tasks, 2-Verbalize Understanding, 3- ImproveStrength/Ralph 1=Demonstrate adherence to instructed precautions during ADL tasks. 2=Patient will verbalize/demonstrate understanding of assistive devices/modifications for ADL. 3=Patient will improve strength/tolerance for activity to enable patient to perform ADL's. OT Education/Plan Problem List/Assessment Assessment: Decreased Activ Tolerance, Decreased Safety Aware, Decreased UE Strength, Dependent Transfers, Impaired Bed Mobility, Impaired Cognition, Impaired Coordination, Impaired Funct Balance, Impaired I ADL's, Impaired Self- Care Skills pt presents with functional limitations affecting areas of ADLs and functional transfers with the above mention. pt would benefit from skilled OT services to address above mention deficits and to increase independence with ADLs and functional transfers. Discharge Recommendations Plan/Recommendations: Continue POC Barriers to Progress self limiting fear Treatment Plan/Plan of Care Treatment,Training & Education: Yes Patient would benefit from OT for education, treatment and training to promote independence in ADL's, mobility, safety and/or upper extremity function for ADL's. Plan of Care: ADL Retraining, Caregiver Training, Cognitive Retraining, Concurrent Therapy, Functional Mobility, Group Exercise/Act as Ind, UE Funct Exercise/Act Treatment Duration: Feb 09, 2019 Frequency: At least 5 of 7 days/Wk (IRF) Estimated Hrs Per Day: 1 hour per day (60-90 minutes per day ) Agreement: Yes Rehab Potential: Fair Time/GCodes Start Time: 09:30 Stop Time: 10:45 Billed Treatment Time ADL 15 minutes, 1 unit FA 60 minutes, 4 units ANGELY CHOUDHURY OT Jan 12, 2019 11:15
--- NOTE | 2019-01-12 12:01 | Physical Therapy Daily Note ---
PT Daily Note-Current Subjective Pt laying Supine in bed upon arrival. Pt agrees to PT/OT co-treat. Pain Location: No Pain Reported Mental Status Patient Orientation: Person, Place Transfers Therapy Code Descriptions/Definitions Functional [place] Measure: 0=Not Assessed/NA 4=Minimal Assistance 1=Total Assistance 5=Supervision or Setup 2=Maximal Assistance 6=Modified [place] 3=Moderate Assistance 7=Complete [place] Therapy Quality Codes: 6 Independent with activity with or without an assistive device 5 Patient requires set up or clean up by helper. Patient completes activity by themselves 4 Supervision or touching assist (CGA). [place] provide cues , steadying assist 3 The helper provides less than half the effort to complete the activity 2 The helper provides more than half the effort to complete the activity 1 Dependent. The helper does all the effort to complete an activity 7 Patient refused to complete or attempt activity 9 The patient did not perform the activity before the current illness or injury 88 Not attempted due to Medical conditions or safety concerns Scootin Rollin Roll Left to Right (QC): 2 Supine to/from Sit: 2 Sit to/from Stand: 1 Sit to Lying (QC): 1 Sit to Stand (QC): 1 Chair/Ccm-xm-Kxfsi Xfer(QC): 1 Bed to/from Chair: 1 Weight Bearing Right Lower Extremity: Right Full Weight Bearing Left Lower Extremity: Left Full Weight Bearing Wheelchair Training Does the Pt Use a Wheelchair?: Yes Wheelchair (FIM): 1 Distance: 35' Wheelchair Level of Assist: 1 Type of Wheelchair: Manual Exercises Seated Therapy Exercises: Ankle pumps, Long arc quads, Hip flexion, Kicking activity Seated Reps: 15 Treatments PT/OT co-treat completed due to complexity of pt deficits requiring skills of both disciplines for TX session and safety of pt due to lack of strength/ coordination and activity tolerance at this time that could not be fulfilled by a rehab therapist. PT focus on LE positioning, gross movement, while OT focus on UE placement/ sequencing. Pt required TA for LB dressing (pants, mukund socks). Pt required MAX A to perform rolling R<> L. OT provided 75% tactile cuing/ hand position. noted increase initiation this date . Pt required MAX A to perform supine to sit with HOB elevated to approx 75 degrees. Pt demo ability to move LLE toward EOB but required TA to advance RLE. Pt required hand over hand placement of Mukund UE. noted TA for truck positioning. Pt transfers from bed to w/c completed TA. Pt re-education on use of W/C/ proper hand placement. noted no carry through of trained techniques from day prior. OT provided hand over hand placement to increase UE strength for self propelling while PT focused on gross movement/ stirring of w/c. noted significant weakness on R side of body compared to Left side. Pt demo ability to propel w/c 35 ft in 5 minutes 33 seconds. pt education on standing frame. noted 4 trails on standing frame. Pt's full stand limited by by fear and weakness. Pt required MAX encouragement to continue with skilled task. Pt then transferred back to recliner chair with TA. . Pt transported back to room resting at end of tx with all needs met, call light in hand. Assessment Current Status: Fair Progress Pt is limited by weakness and fear/anxiousness at this time. PT Short Term Goals Short Term Goals Time Frame: Jan 19, 2019 Transfers (B,C,W/C) (FIM): 3 Gait (FIM): 2 Distance (FIM): 7=141-62 ft Gait Assistive Device: FWW Wheelchair Distance: 25', 30' PT Alf Goals Alf Goals PT Alf Goals Time Frame: Feb 02, 2019 Transfers (B,C,W/C) (FIM): 6 Sit to Lying (QC): 6 Lying-Sitting on Side/Bed(QC): 6 Sit to Stand (QC): 6 Rollin Roll Left to Right (QC): 6 Chair/Aql-ad-Pozfj Xfer(QC): 6 Car Transfer (QC): 5 Does the Patient Walk: No and Walking Goal IS indicated Gait (FIM): 5 Gait distance (FIM): 0=625-71 ft Walk 10 feet (QC): 5 Walk 10ft-Uneven Surface(QC): 5 Walk 50ft with 2 Turns (QC): 5 Walk 150 ft (QC): 4 Gait Assistive Device: FWW Does the Pt use WC or Scooter?: No Stairs (FIM): 2 # of Steps: 4 1 Step (curb) (QC): 5 4 Steps (QC): 4 12 Steps (QC): 88 Picking up an Object (QC): 88 PT Plan Problem List Problem List: Activity Tolerance, Functional Strength, Safety, Balance, Transfer, Bed Mobility, ROM Treatment/Plan Treatment Plan: Continue Plan of Care Treatment Plan: Bed Mobility, Education, Functional Activity Ralph, Functional Strength, Group Therapy, Gait, Safety, Therapeutic Exercise, Transfers Treatment Duration: Feb 02, 2019 Frequency: At least 5 of 7 days/Wk (IRF) Estimated Hrs Per Day: 1.5 hours per day Patient and/or Family Agrees t: Yes Safety Risks/Education Patient Education: Transfer Techniques, Correct Positioning, W/C Management, Safety Issues Teaching Recipient: Patient Teaching Methods: Discussion Response to Teaching: Verbalize Understanding, Reinforcement Needed Time/GCodes Time In: 930 Time Out: 1045 Total Billed Treatment Time: 75 Total Billed Treatment 1, [facility]CH (15m) & FA x4 (60m) Co-treat w/OT for 75m G Codes Necessary: PIERRE Arboleda PTA Jan 12, 2019 12:01
[2019-01-12] MEDS: LOPERAMIDE 2 MG (IMODIUM) TABLET PO PRN ×2 (13:41→20:16)
[2019-01-12] MEDS: ROFLUMILAST 500 MCG TAB (DALIRESP) PO SCH (13:41)
[2019-01-12 16:20] VITALS: BP 101/60
--- NOTE | 2019-01-12 16:20 | NUR ---
PATTERN STORAGE CLERK met with spouse to review Team Conference Summary. As team expressed concerns with slow progression, PATTERN STORAGE CLERK inquired about her spouse's perception on what obstacles need to be overcame prior to returning home. Zac states patient will need to be able to navigate the five steps within the home and ambulate with a walker. PATTERN STORAGE CLERK inquired about the ability to place a ramp over steps, as patient will likely be at a wheelchair level at discharge, he does not believe a ramp will be possible. He then requests that if patient cannot ambulate with walker and complete stairs, that a referral be sent to [facility]. PATTERN STORAGE CLERK will continue to follow progress to determine need for referrals.
[2019-01-12] MEDS: ENOXAPARIN 40 MG/0.4 ML (LOVENOX) SYR SC SCH (17:37)
[2019-01-12] MEDS: HYDROcodone/APAP 7.5MG-325 MG/15 ML (LORTAB) UDC PO PRN (20:17)
[2019-01-12] MEDS: LIDOCAINE PATCH REMOVAL TP SCH (20:25)
[2019-01-13] MEDS: NIACIN 500 MG TABLET PO SCH ×2 (05:12→17:39)
[2019-01-13] MEDS: SUCRALFATE 1 GM (CARAFATE) TAB PO SCH ×3 (05:12→17:39)
[2019-01-13] MEDS: SODIUM BICARBONATE PO SCH ×3 (05:12)
[2019-01-13] MEDS: WATER PO SCH ×3 (05:12)
[2019-01-13] MEDS: STERILE FOR IRRIGATION PO SCH ×3 (05:12)
[2019-01-13] MEDS: [UNRECOGNIZED DRUG - OTHER] PO SCH ×3 (05:12)
[2019-01-13] MEDS: inSUlin ASPART (NovoLOG) 1 UNIT/0.01 ML (CHARGE PER UNIT) SC SCH ×4 (05:13→21:11)
[2019-01-13] MEDS: CATHETER FLUSH 10 ML SYR IV SCH ×3 (05:13→21:22)
[2019-01-13 05:35] VITALS: BP 115/60
[2019-01-13] MEDS: SENNA W/DOCUSATE (SENOKOT S) TABLET PO SCH ×2 (08:15→21:21)
[2019-01-13] MEDS: ASCORBIC ACID (VIT C) 500 MG TABLET PO SCH (08:37)
[2019-01-13] MEDS: LACTOBACILLUS ACIDOPHILUS (PROBIOTIC) CAPSULE PO SCH ×2 (08:37→21:20)
[2019-01-13] MEDS: FOLIC ACID 1 MG TAB PO SCH (08:37)
[2019-01-13] MEDS: OMEGA 3 (FISH OIL) 1000 MG CAP PO SCH ×2 (08:37→21:20)
[2019-01-13] MEDS: MULTIVIT W/MINERALS TAB (THERAGRAN M) PO SCH (08:37)
[2019-01-13] MEDS: meTOprolol TARTRATE 25 MG (LOPRESSOR) TABLET PO SCH ×2 (08:37→21:20)
[2019-01-13] MEDS: THIAMINE 100 MG (VITAMIN B-1) TAB PO SCH ×2 (08:37→21:20)
[2019-01-13] MEDS: SILDENAFIL 20 MG (REVATIO) TAB NON-FORMULARY PO SCH ×3 (09:10→21:20)
[2019-01-13] MEDS: LIDOCAINE 4% (SALONPAS) PATCH TOP SCH (09:10)
--- NOTE | 2019-01-13 09:13 | PM&R Progress Note ---
Subjective HPI/CC On Admission Date Seen by Provider: Jan 13, 2019 Time Seen by Provider: 09:00 Chief complaint: Critical illness myopathy HPI: This is a 78yoWF known to me from ICU 9 hospital stay after a massive GI bleed requiring surgery by Dr. Talamantes who was ultimately transferred to [place] on a ventilator, took three weeks to wean off, had trach placed peg tube for tube feedings and has resulted in severe weakness in need of inpatient rehab, she is doing very well, having a speaking valve on her trach and is not capped at this point because she is so fatigued. Dr. Ding is the marketing budget analyst who is working with her and is not comfortable capping the trach right now. She is eating 25-50% of the meals, she is receiving nocturnal tube feedings to supplement and overall she has severe weakness and will ultimately return home with her to continue recovery after inpatient rehab works on her strength. Subjective/Events-last exam We discontinued tube feedings last night which was a big step for her and she did well and ate 100% of her bfast today Feeding herself. Eating and drinking well. Pain is minimal. Bowels continue to be loose from the tube feedings so that should improve since TF dc. Denies any other significant SOB or chest pain. Dramatic improvement, slowly recovering. Reviewed therapy notes. Conferred with RN. Review of Systems General: Fatigue, Malaise Objective Exam Vital Signs Vital Signs Date Time Temp Pulse Resp B/P (MAP) Pulse Ox O2 Delivery O2 Flow Rate FiO2 01/13/19 09:00 Room Air 01/13/19 08:11 93 6.00 28 01/13/19 05:35 97.7 98 22 115/60 (78) Capillary Refill : Less Than 3 Seconds General Appearance: No Apparent Distress, WD/WN, Chronically ill, Thin HEENT: PERRL/EOMI, Normal ENT Inspection, Pharynx Normal, Moist Mucous Membranes, Other (trach in place) Neck: Full Range of Motion, Normal Inspection, Non Tender, Supple Respiratory: Chest Non Tender, Lungs Clear, No Accessory Muscle Use, No Respiratory Distress, Decreased Breath Sounds Cardiovascular: Regular Rate, Rhythm, No Edema, No Gallop, No JVD, No Murmur Gastrointestinal: Normal Bowel Sounds, No Organomegaly, No Pulsatile Mass, Non Tender, Soft, Other (PEG in place) Back: Normal Inspection, No CVA Tenderness, No Vertebral Tenderness Extremity: Normal Capillary Refill, Normal Inspection, Normal Range of Motion, Non Tender, No Calf Tenderness, No Pedal Edema Neurologic/Psychiatric: Alert, Oriented x3, Normal Mood/Affect, friend of the court II-XII Norm as Tested, Motor Weakness (3/5 all extremities) Skin: Normal Color, Warm/Dry Lymphatic: No Adenopathy Results/Procedures Lab Patient resulted labs reviewed. FIM Transfers Therapy Code Descriptions/Definitions Functional [place] Measure: 0=Not Assessed/NA 4=Minimal Assistance 1=Total Assistance 5=Supervision or Setup 2=Maximal Assistance 6=Modified [place] 3=Moderate Assistance 7=Complete [place] Therapy Quality Codes: 6 Independent with activity with or without an assistive device 5 Patient requires set up or clean up by helper. Patient completes activity by themselves 4 Supervision or touching assist (CGA). [place] provide cues , steadying assist 3 The helper provides less than half the effort to complete the activity 2 The helper provides more than half the effort to complete the activity 1 Dependent. The helper does all the effort to complete an activity 7 Patient refused to complete or attempt activity 9 The patient did not perform the activity before the current illness or injury 88 Not attempted due to Medical conditions or safety concerns Transfers (B, C, W/C) (FIM): 1 Scootin Rollin Roll Left to Right (QC): 2 Supine to/from Sit: 2 Sit to/from Stand: 1 Sit to Lying (QC): 1 Sit to Stand (QC): 1 Chair/Ijn-sv-Zwcha Xfer(QC): 1 Bed to/from Chair: 1 Car Transfer (QC): 88 Gait Training Does the Patient Walk?: No and Walking Goal IS indicated Gait (FIM): 0 (unable to stand at this time. ) Distance (FIM): 0=does not occure Walk 10 feet (QC): 88 Walk 50 ft with 2 Turns(QC): 88 Walk 150 ft (QC): 88 Walking 10ft/uneven surface-QC: 88 Wheelchair Training Does the Pt Use a Wheelchair?: Yes Wheelchair (FIM): 1 Wheelchair Distance: 9=694-47 ft Distance: 35' Wheelchair Level of Assist: 1 Type of Wheelchair: Manual Stair Training Stairs (FIM): 0 1 Step (curb) (QC): 88 4 Steps (QC): 88 12 Steps (QC): 88 Balance Picking up an Object (QC): 88 Mental Status/Objective Comprehension: 7 Expression: 7 Social Interaction: 7 Problem Solvin Memory: 7 ADL-Treatment Feedin Eating (QC): 4 Groomin (pt demo ability to wash face. pt required assist to wash hair and comb hair ) Oral Hygiene (QC): 2 Bathin Bathing Location: L Arm, R Arm, Chest, Abdomen Shower/Bathe Self (QC): 2 Upper Extremity Dressin (required TA to apply jacket. ) Upper Body Dressing (QC): 1 Lower Extremity Dressin (ayush sokc,s brief, and pants ) Lower Body Dressing (QC): 1 On/Off Footwear (QC): 1 Toiletin Toileting Hygiene (QC): 1 Toilet/Commode Transfer: 1 (SB X 2 person assist ) Toilet Transfer (QC): 1 (SB X 2 person assist ) Shower: 1 (SB X 2 person assist ) Assessment/Plan Assessment and Plan Assess & Plan/Chief Complaint Assessment: Myopathy (1) s/p Ventilator dependence Status: Acute (2) s/p Respiratory failure Status: Acute (3) Anemia due to acute blood loss Status: Acute (4) GERD (gastroesophageal reflux disease) Status: Chronic (5) Dementia Status: Chronic (6) s/p Acute GI bleeding Status: Acute (7) Weakness Status: Acute (8) s/p Transfusion of blood during current hospitalization Status: Acute (9) h/o Pyloric ulcer Status: Acute (10) Trach in place (11) PEG in place with TF at night Plan: Monitor closely TF DC Continue all meds as ordered Reviewed labs Appreciate Dr Lozada Full code at 's request Unsure of the recoverability of this patient may ultimately need NHP Patient slow to improve but appears to be motivated Stop daily labs (1) Myopathy (2) GERD (gastroesophageal reflux disease) (3) Ventilator dependence (4) Hyperkalemia (5) Dementia (6) Pyloric ulcer (7) Tracheostomy in place (8) Transfusion history BO SUÁREZ DO Jan 13, 2019 09:13
--- NOTE | 2019-01-13 10:37 | Physical Therapy Daily Note ---
PT Daily Note-Current Subjective Pt. in bed agrees to Rx, was happy to have her toenails trimmed. Spoke at length with pt. about her functional goals as well as DC goals Pain Location: No Pain Reported Appearance pt. expresses fear at all movements milla for sitting with forward weight shift and even more with attempts to stand and also with slide squat pivot TRF which is max assist, pt. often resisting,ie hangs on to the arm of the chair she is in or pushes self away from therapist TRFing her. Mental Status Patient Orientation: Person, Place Attachments: PEG Tube hard of hearing Transfers Therapy Code Descriptions/Definitions Functional [place] Measure: 0=Not Assessed/NA 4=Minimal Assistance 1=Total Assistance 5=Supervision or Setup 2=Maximal Assistance 6=Modified [place] 3=Moderate Assistance 7=Complete [place] Therapy Quality Codes: 6 Independent with activity with or without an assistive device 5 Patient requires set up or clean up by helper. Patient completes activity by themselves 4 Supervision or touching assist (CGA). [place] provide cues , steadying assist 3 The helper provides less than half the effort to complete the activity 2 The helper provides more than half the effort to complete the activity 1 Dependent. The helper does all the effort to complete an activity 7 Patient refused to complete or attempt activity 9 The patient did not perform the activity before the current illness or injury 88 Not attempted due to Medical conditions or safety concerns Transfers (B, C, W/C) (FIM): 1 Scootin Rollin Supine to/from Sit: 2 Sit to/from Stand: 1 Bed to/from Chair: 2 Weight Bearing Right Lower Extremity: Right Full Weight Bearing Left Lower Extremity: Left Full Weight Bearing Gait Training Does the Patient Walk?: No and Walking Goal NOT indicated Wheelchair Training Does the Pt Use a Wheelchair?: Yes Wheelchair (FIM): 1 Wheelchair Distance: 1=up to 49 ft (25ft) Wheelchair Level of Assist: 2 Type of Wheelchair: Manual needs max assist braking and mod to max steering w/c Exercises Supine Ex: Ankle pumps (HC stretches 4 x 20s ea), Quad Set, Rolling (mod to max assist), Heel Slides (assisted), Scooting (seated left and right on high low mod to max), Hip abd/add (assisted) Treatments attempted LIKO lift to offer pt. stance and nursing ability to TRF easily however pt. was unable to stand , did not use LEs and resists, fearful etc co Rx with OT secondary to pts low level function, highly dependent, PT for stability and balance during sitting while OT works on funct reach and crossing body etc. UE , as well as seated left to right scooting, SPTs continue max assist as pt. only briefly sloows weight on LEs and feet then completely "hangs" on therapist as they 1/4 turn squat pivot her. Assessment Current Status: Fair Progress progress noted in following ways: sitting balance in perch type position on high low with hands on table for stability , for and back side to side weight shifting, reaching with OT improved as pt. sat approx 10 min for activities, side scoots with mod assist left to right this COVERSTITCH ELASTIC ATTACHER assisting by pulling slightly on her slacks when she did allow wt bearing on LEs as she leaned forward and scooted PT Short Term Goals Short Term Goals Time Frame: Jan 19, 2019 Transfers (B,C,W/C) (FIM): 3 Gait (FIM): 2 Distance (FIM): 2=729-71 ft Gait Assistive Device: FWW Wheelchair Distance: 35' PT Mcfp Goals Mcfp Goals PT Mcfp Goals Time Frame: Feb 02, 2019 Transfers (B,C,W/C) (FIM): 6 Sit to Lying (QC): 6 Lying-Sitting on Side/Bed(QC): 6 Sit to Stand (QC): 6 Rollin Roll Left to Right (QC): 6 Chair/Nhw-eu-Uvovm Xfer(QC): 6 Car Transfer (QC): 5 Does the Patient Walk: No and Walking Goal IS indicated Gait (FIM): 5 Gait distance (FIM): 9=351-91 ft Walk 10 feet (QC): 5 Walk 10ft-Uneven Surface(QC): 5 Walk 50ft with 2 Turns (QC): 5 Walk 150 ft (QC): 4 Gait Assistive Device: FWW Does the Pt use WC or Scooter?: No Stairs (FIM): 2 # of Steps: 4 1 Step (curb) (QC): 5 4 Steps (QC): 4 12 Steps (QC): 88 Picking up an Object (QC): 88 PT Plan Treatment/Plan Treatment Plan: Continue Plan of Care Treatment Plan: Bed Mobility, Education, Functional Activity Ralph, Functional Strength, Group Therapy, Gait, Safety, Therapeutic Exercise, Transfers Treatment Duration: Feb 02, 2019 Frequency: At least 5 of 7 days/Wk (IRF) Estimated Hrs Per Day: 1.5 hours per day Patient and/or Family Agrees t: Yes Safety Risks/Education Patient Education: Transfer Techniques, Correct Positioning, W/C Management, Disease Process, Safety Issues Teaching Recipient: Patient Teaching Methods: Demonstration, Discussion Response to Teaching: Verbalize Understanding, Return Demonstration, Reinforcement Needed hard of hearing , needs demo and multiple instruction Time/GCodes Time In: 900 Time Out: 1030 Total Billed Treatment Time: 90 Total Billed Treatment 1,wch15m,EX15m,FA60m co Rx OT G Codes Necessary: No GARTH MALIN COVERSTITCH ELASTIC ATTACHER Jan 13, 2019 10:37
--- NOTE | 2019-01-13 10:52 | Pulmonary Progress Note ---
Subjective Time Seen by a Provider: 10:51 Subjective/Events-last exam No complications noted. Sepsis Event Evaluation Height, Weight, BMI Height: 5'2.00" Weight: 118lbs. 0.0oz. 53.428609gt; 20.9 BMI Method:Actual Exam Exam Vital Signs Date Time Temp Pulse Resp B/P (MAP) Pulse Ox O2 Delivery O2 Flow Rate FiO2 01/13/19 09:00 Room Air 01/13/19 08:11 93 Trach Collar 6.00 28 01/13/19 05:35 97.7 98 22 115/60 (78) 100 Room Air 01/12/19 21:18 93 Trach Collar 6.00 28 01/12/19 20:00 Room Air 01/12/19 18:02 Room Air 01/12/19 16:20 97.5 93 16 101/60 (74) 100 Room Air I & O 01/13/19 07:00 Intake Total 1420 ml Balance 1420 ml Height & Weight Height: 5'2.00" Weight: 118lbs. 0.0oz. 53.027823hk; 20.9 BMI Method:Actual General Appearance: No Apparent Distress, WD/WN, Chronically ill, Thin HEENT: PERRL/EOMI, Normal ENT Inspection, Pharynx Normal, Moist Mucous Membranes, Other Neck: Full Range of Motion, Normal Inspection, Non Tender, Supple Respiratory: Chest Non Tender, Lungs Clear, No Accessory Muscle Use, No Respiratory Distress, Decreased Breath Sounds Cardiovascular: Regular Rate, Rhythm, No Edema, No Gallop, No JVD, No Murmur Capillary Refill: Less Than 3 Seconds Gastrointestinal: normal bowel sounds, non tender, soft Extremity: Normal Capillary Refill, Normal Inspection, Normal Range of Motion, Non Tender, No Calf Tenderness, No Pedal Edema Neurologic/Psychiatric: Alert, Oriented x3, art editor II-XII Norm as Tested, Depressed Affect, Motor Weakness Skin: Normal Color, Warm/Dry Lymphatic: No Adenopathy Assessment/Plan Assessment/Plan Chronic respiratory failure s/p tracheostomy -SVNS -Monitor -No complications noted Anemia with hx of GIB -Monitor ARJUN MEADE DO Jan 13, 2019 10:52
--- NOTE | 2019-01-13 11:16 | Occupational Ther Daily Note ---
OT Current Status-Daily Note Subjective pt agreed to co-treat pt agreed to OT/ PT. pt reports no pain. pt reports she has a fear of falling Mental Status/Objective Patient Orientation: Person, Place, Time, Situation Therapy Code Descriptions/Definitions Functional [place] Measure: 0=Not Assessed/NA 4=Minimal Assistance 1=Total Assistance 5=Supervision or Setup 2=Maximal Assistance 6=Modified [place] 3=Moderate Assistance 7=Complete [place] ADL-Treatment Therapy Code Descriptions/Definitions Functional [place] Measure: 0=Not Assessed/NA 4=Minimal Assistance 1=Total Assistance 5=Supervision or Setup 2=Maximal Assistance 6=Modified [place] 3=Moderate Assistance 7=Complete [place] Therapy Quality Codes: 6 Independent with activity with or without an assistive device 5 Patient requires set up or clean up by helper. Patient completes activity by themselves 4 Supervision or touching assist (CGA). [place] provide cues , steadying assist 3 The helper provides less than half the effort to complete the activity 2 The helper provides more than half the effort to complete the activity 1 Dependent. The helper does all the effort to complete an activity 7 Patient refused to complete or attempt activity 9 The patient did not perform the activity before the current illness or injury 88 Not attempted due to Medical conditions or safety concerns Lower Body Dressing (FIM): 1 (pants) Lower Body Dressing (QC): 1 On/Off Footwear (QC): 1 (mukund shoes and socks ) Toileting (FIM): 1 Other Treatment PT/OT co-treat completed due to complexity of pt deficits requiring skills of both disciplines for TX session and safety of pt due to lack of strength/ coordination and activity tolerance at this time that could not be fulfilled by a regional rehabilitation director. PT focus on LE positioning, gross movement, and seated balance while OT focus on UE placement/ sequencing and AE education . pt perform bed mobility with MAX A requiring max tactile cuing. and transfer to w/c DEP X 2 person assist. PT/ OT attempted to use LIKO lift with pt.LIKO lift was unsuccessful secondary to decrease LE strength and fear. pt transferred to mat table OT works on funct reach and crossing body etc. UE , as well as seated left to right scooting, while OT focus on overall seated balance/ LE positioning. noted pt able to maintain static sitting with CGA for 15 minutes. pt education on use of touch up edger. pt demo ability to grain picker 9 items from floor with touch up edger requiring additional timing secondary to decrease grasp in Mukund hands. pt sitting in recliner chair post OT session.all needs met. Education OT Patient Education: Energy conservation, Modified ADL techniques, Reviewed precautions, Rehab process, Safety issues, Transfer techniques, Use of adapted equipment Teaching Recipient: Patient Teaching Methods: Demonstration, Discussion Response to Teaching: Verbalize Understanding, Return Demonstration OT Short Term Goals Short Term Goals Eating(FIM): 3 Grooming(FIM): 3 Bathing(FIM): 3 Upper Body Dressing(FIM): 3 Lower Body Dressing(FIM): 3 Toileting(FIM): 3 Transfers (B,C,W/C) (FIM): 3 Toilet/Commode Transfer(FIM): 3 Shower Transfer(FIM): 3 1=Demonstrate adherence to instructed precautions during ADL tasks. 2=Patient will verbalize/demonstrate understanding of assistive devices/modifications for ADL. 3=Patient will improve strength/tolerance for activity to enable patient to perform ADL's. OT Retirement Goals Department Mgr Goals Eating (FIM): 6 Eating (QC): 6 Groomin Oral Hygiene (QC): 6 Bathing(FIM): 5 Bathing Location: L Arm, R Arm, L Upper Leg, R Upper Leg, L Lower Leg (including foot), R Lower Leg (including foot), Chest, Abdomen, Buttocks, Perineal Area Shower/Bathe Self (QC): 5 Upper Body Dressing(FIM): 5 Upper Body Dressing (QC): 5 Lower Body Dressing(FIM): 5 Lower Body Dressing (QC): 5 On/Off Footwear (QC): 5 Toileting(FIM): 5 Toileting Hygiene (QC): 5 Transfers (B,C,W/C) (FIM): 5 Toilet/Commode Transfer(FIM): 5 Toilet/Commode Transfer (QC): 5 Shower Transfer(FIM): 5 Additional Goals: 1-Demonstrate ADL Tasks, 2-Verbalize Understanding, 3- ImproveStrength/Ralph 1=Demonstrate adherence to instructed precautions during ADL tasks. 2=Patient will verbalize/demonstrate understanding of assistive devices/modifications for ADL. 3=Patient will improve strength/tolerance for activity to enable patient to perform ADL's. OT Education/Plan Problem List/Assessment Assessment: Decreased Activ Tolerance, Decreased Safety Aware, Decreased UE Strength, Dependent Transfers, Impaired Bed Mobility, Impaired Cognition, Impaired Coordination, Impaired Funct Balance, Impaired I ADL's, Impaired Self- Care Skills, Restricted Funct UE ROM pt presents with functional limitations affecting areas of ADLs and functional transfers with the above mention. pt would benefit from skilled OT services to address above mention deficits and to increase independence with ADLs and functional transfers. Discharge Recommendations Plan/Recommendations: Continue POC Barriers to Progress self limiting fear Treatment Plan/Plan of Care Treatment,Training & Education: Yes Patient would benefit from OT for education, treatment and training to promote independence in ADL's, mobility, safety and/or upper extremity function for ADL's. Plan of Care: ADL Retraining, Caregiver Training, Cognitive Retraining, Concu rrent Therapy, Functional Mobility, Group Exercise/Act as Ind, UE Funct Exercise/Act Treatment Duration: Feb 09, 2019 Frequency: At least 5 of 7 days/Wk (IRF) Estimated Hrs Per Day: 1 hour per day (60-90 minutes per day ) Agreement: Yes Rehab Potential: Fair Time/GCodes Start Time: 09:15 Stop Time: 10:30 Billed Treatment Time ADL 15 minutes, 1 unit FA 60 minutes, 4 units ANGELY CHOUDHURY OT Jan 13, 2019 11:16
[2019-01-13] MEDS: ROFLUMILAST 500 MCG TAB (DALIRESP) PO SCH (14:16)
--- NOTE | 2019-01-13 15:45 | Speech Therapy Daily Note ---
Speech Daily Progress Note Subjective Date Seen by Provider: Jan 13, 2019 Time Seen by Provider: 00:30 The patient was sitting up in her recliner when I entered her room. Objective The patient continues to utilize compensatory strategies as trained with 80% accuracy given minimal verbal cues. Assessment Assessment Current Status: Good Progress Treatment Plan Continue Plan of Care Communication Comprehension: 7 Expression: 7 Social Cognition Social Interaction: 7 Problem Solvin Memory: 7 Speech Short Term Goals Short Term Goals Short Term Goals 1) The patient will tolerate the least restrictive diet level without s/s of aspiration at 90% with minimal verbal cues. 2) The patient will utilize compensatory strategies as trained for safe oral intake at 90% or greater with minimal verbal cues. Speech Underwater Roboticist Goals Underwater Roboticist Goals The patient will maintain adequate nutrition/hydration via safe effective swallo w function with PEG tube as needed. Speech-Plan Patient/Family Goals Patient/Family Goals: The patient plans on returning home with her post rehab. Treatment Plan Speech Therapy Treatment Plan: Continue Plan of Care The patient is being discontinued from night feedings with the PEG tube due to increasing her oral intake adequately. Treatment Duration: Jan 20, 2019 Frequency: 5 times per week Estimated Hrs Per Day: .5 hour per day Rehab Potential: Fair Barriers to Learning: The patient has a complex medical status. Pt/Family Agrees to Plan: Yes Safety Risks/Education Teaching Recipient: Patient Teaching Methods: Discussion Response to Teaching: Verbalize Understanding Education Topics Provided: Continued safety with oral intake. Time Speech Therapy Time In: 14:00 Speech Therapy Time Out: 14:30 Total Billed Time: 30 Billed Treatment Time 1, SHIRLENE Oconnor Jan 13, 2019 15:45
[2019-01-13 15:55] VITALS: BP 124/69
[2019-01-13] MEDS: ENOXAPARIN 40 MG/0.4 ML (LOVENOX) SYR SC SCH (17:39)
[2019-01-13 21:18] VITALS: BP 117/64
[2019-01-13] MEDS: LIDOCAINE PATCH REMOVAL TP SCH (21:22)
[2019-01-14] MEDS: SUCRALFATE 1 GM (CARAFATE) TAB PO SCH ×5 (00:08→23:44)
[2019-01-14 05:37] VITALS: BP 146/61
[2019-01-14] MEDS: inSUlin ASPART (NovoLOG) 1 UNIT/0.01 ML (CHARGE PER UNIT) SC SCH ×4 (06:20→21:28)
[2019-01-14] MEDS: NIACIN 500 MG TABLET PO SCH ×2 (06:20→16:57)
[2019-01-14] MEDS: SODIUM BICARBONATE PO SCH ×3 (06:20)
[2019-01-14] MEDS: STERILE FOR IRRIGATION PO SCH ×3 (06:20)
[2019-01-14] MEDS: [UNRECOGNIZED DRUG - OTHER] PO SCH ×3 (06:20)
[2019-01-14] MEDS: WATER PO SCH ×3 (06:20)
[2019-01-14] MEDS: CATHETER FLUSH 10 ML SYR IV SCH (06:29)
[2019-01-14] MEDS: SENNA W/DOCUSATE (SENOKOT S) TABLET PO SCH ×2 (08:06→21:29)
[2019-01-14] MEDS: SILDENAFIL 20 MG (REVATIO) TAB NON-FORMULARY PO SCH ×3 (08:39→21:29)
[2019-01-14] MEDS: LIDOCAINE 4% (SALONPAS) PATCH TOP SCH (08:39)
[2019-01-14] MEDS: THIAMINE 100 MG (VITAMIN B-1) TAB PO SCH ×2 (08:40→21:29)
[2019-01-14] MEDS: LACTOBACILLUS ACIDOPHILUS (PROBIOTIC) CAPSULE PO SCH ×2 (08:40→21:28)
[2019-01-14] MEDS: FOLIC ACID 1 MG TAB PO SCH (08:40)
[2019-01-14] MEDS: MULTIVIT W/MINERALS TAB (THERAGRAN M) PO SCH (08:40)
[2019-01-14] MEDS: meTOprolol TARTRATE 25 MG (LOPRESSOR) TABLET PO SCH ×2 (08:40→21:29)
[2019-01-14] MEDS: ASCORBIC ACID (VIT C) 500 MG TABLET PO SCH (08:40)
[2019-01-14] MEDS: OMEGA 3 (FISH OIL) 1000 MG CAP PO SCH ×2 (08:40→21:29)
--- NOTE | 2019-01-14 12:58 | PM&R Progress Note ---
Subjective HPI/CC On Admission Date Seen by Provider: Jan 14, 2019 Time Seen by Provider: 10:30 Chief complaint: Critical illness myopathy HPI: This is a 78yoWF known to me from ICU 9 hospital stay after a massive GI bleed requiring surgery by Dr. Talamantes who was ultimately transferred to [place] on a ventilator, took three weeks to wean off, had trach placed peg tube for tube feedings and has resulted in severe weakness in need of inpatient rehab, she is doing very well, having a speaking valve on her trach and is not capped at this point because she is so fatigued. Dr. Ding is the superintendent storage area who is working with her and is not comfortable capping the trach right now. She is eating 25-50% of the meals, she is receiving nocturnal tube feedings to supplement and overall she has severe weakness and will ultimately return home with her to continue recovery after inpatient rehab works on her strength. Subjective/Events-last exam Eating a 100% Doing very well since tube feeding was discontinued 2 nights ago Probiotic will be given to help diarrhea situation but hopefully since the tube feedings were discontinued that will occur naturally Overall much improved and weakness is improving every day Denies any pain No shortness of breath Speaking valve is working very well with her trach Checked meds and labs Conferred with RN and reviewed therapy notes Review of Systems General: Fatigue Objective Exam Vital Signs Vital Signs Date Time Temp Pulse Resp B/P (MAP) Pulse Ox O2 Delivery O2 Flow Rate FiO2 01/14/19 09:00 Room Air 01/14/19 07:21 6.00 28 01/14/19 05:37 97.9 90 20 146/61 (89) 95 Capillary Refill : Less Than 3 Seconds General Appearance: No Apparent Distress, WD/WN, Chronically ill, Thin HEENT: PERRL/EOMI, Normal ENT Inspection, Pharynx Normal, Moist Mucous Membranes, Other (trach in place) Neck: Full Range of Motion, Normal Inspection, Non Tender, Supple Respiratory: Chest Non Tender, Lungs Clear, No Accessory Muscle Use, No Respiratory Distress, Decreased Breath Sounds Cardiovascular: Regular Rate, Rhythm, No Edema, No Gallop, No JVD, No Murmur Gastrointestinal: Normal Bowel Sounds, No Organomegaly, No Pulsatile Mass, Non Tender, Soft, Other (PEG in place) Back: Normal Inspection, No CVA Tenderness, No Vertebral Tenderness Extremity: Normal Capillary Refill, Normal Inspection, Normal Range of Motion, Non Tender, No Calf Tenderness, No Pedal Edema Neurologic/Psychiatric: Alert, Oriented x3, Normal Mood/Affect, scrap dealer II-XII Norm as Tested, Motor Weakness (3/5 all extremities) Skin: Normal Color, Warm/Dry Lymphatic: No Adenopathy Results/Procedures Lab Patient resulted labs reviewed. FIM Transfers Therapy Code Descriptions/Definitions Functional [place] Measure: 0=Not Assessed/NA 4=Minimal Assistance 1=Total Assistance 5=Supervision or Setup 2=Maximal Assistance 6=Modified [place] 3=Moderate Assistance 7=Complete [place] Therapy Quality Codes: 6 Independent with activity with or without an assistive device 5 Patient requires set up or clean up by helper. Patient completes activity by themselves 4 Supervision or touching assist (CGA). [place] provide cues , steadying assist 3 The helper provides less than half the effort to complete the activity 2 The helper provides more than half the effort to complete the activity 1 Dependent. The helper does all the effort to complete an activity 7 Patient refused to complete or attempt activity 9 The patient did not perform the activity before the current illness or injury 88 Not attempted due to Medical conditions or safety concerns Transfers (B, C, W/C) (FIM): 1 Scootin Rollin Roll Left to Right (QC): 2 Supine to/from Sit: 2 Sit to/from Stand: 1 Sit to Lying (QC): 1 Sit to Stand (QC): 1 Chair/Unb-xc-Yyoef Xfer(QC): 1 Bed to/from Chair: 2 Car Transfer (QC): 88 Gait Training Does the Patient Walk?: No and Walking Goal NOT indicated Gait (FIM): 0 (unable to stand at this time. ) Distance (FIM): 0=does not occure Walk 10 feet (QC): 88 Walk 50 ft with 2 Turns(QC): 88 Walk 150 ft (QC): 88 Walking 10ft/uneven surface-QC: 88 Wheelchair Training Does the Pt Use a Wheelchair?: Yes Wheelchair (FIM): 1 Wheelchair Distance: 1=up to 49 ft (25ft) Wheelchair Level of Assist: 2 Type of Wheelchair: Manual Stair Training Stairs (FIM): 0 1 Step (curb) (QC): 88 4 Steps (QC): 88 12 Steps (QC): 88 Balance Picking up an Object (QC): 88 Mental Status/Objective Comprehension: 7 Expression: 7 Social Interaction: 7 Problem Solvin Memory: 7 ADL-Treatment Feedin Eating (QC): 4 Groomin (pt demo ability to wash face. pt required assist to wash hair and comb hair ) Oral Hygiene (QC): 2 Bathin Bathing Location: L Arm, R Arm, Chest, Abdomen Shower/Bathe Self (QC): 2 Upper Extremity Dressin (required TA to apply jacket. ) Upper Body Dressing (QC): 1 Lower Extremity Dressin (pants) Lower Body Dressing (QC): 1 On/Off Footwear (QC): 1 (ayush shoes and socks ) Toiletin Toileting Hygiene (QC): 1 Toilet/Commode Transfer: 1 (SB X 2 person assist ) Toilet Transfer (QC): 1 (SB X 2 person assist ) Shower: 1 (SB X 2 person assist ) Assessment/Plan Assessment and Plan Assess & Plan/Chief Complaint Assessment: Myopathy (1) s/p Ventilator dependence Status: Acute (2) s/p Respiratory failure Status: Acute (3) Anemia due to acute blood loss Status: Acute (4) GERD (gastroesophageal reflux disease) Status: Chronic (5) Dementia Status: Chronic (6) s/p Acute GI bleeding Status: Acute (7) Weakness Status: Acute (8) s/p Transfusion of blood during current hospitalization Status: Acute (9) h/o Pyloric ulcer Status: Acute (10) Trach in place (11) PEG in place with TF at night Plan: Monitor closely TF DC and now eating 100% Continue all meds as ordered Reviewed labs Appreciate Dr Lozada Full code at 's request Unsure of the recoverability of this patient may ultimately need NHP Patient slow to improve but appears to be motivated Stop daily labs (1) Myopathy (2) GERD (gastroesophageal reflux disease) (3) Ventilator dependence (4) Hyperkalemia (5) Dementia (6) Pyloric ulcer (7) Tracheostomy in place (8) Transfusion history BO SUÁREZ DO Jan 14, 2019 12:58
[2019-01-14] MEDS: ROFLUMILAST 500 MCG TAB (DALIRESP) PO SCH (14:53)
--- NOTE | 2019-01-14 14:53 | Physical Therapy Daily Note ---
PT Daily Note-Current Subjective Pt agreeable to PT session Pain Numeric Pain Scale: 0-No Pain Appearance 1st attempt, pt incontinent of BM, 2nd attempt pt with ns staff. 3rd attempt able to see pt for therapy session, pt in bed, R sidelying, easily aroused. At end of session, pt L sidelying with call light, bedside table and phone within reach Mental Status Patient Orientation: Person, Time, Eyes Open Attachments: PEG Tube Transfers Therapy Code Descriptions/Definitions Functional [place] Measure: 0=Not Assessed/NA 4=Minimal Assistance 1=Total Assistance 5=Supervision or Setup 2=Maximal Assistance 6=Modified [place] 3=Moderate Assistance 7=Complete [place] Therapy Quality Codes: 6 Independent with activity with or without an assistive device 5 Patient requires set up or clean up by helper. Patient completes activity by themselves 4 Supervision or touching assist (CGA). [place] provide cues , steadying assist 3 The helper provides less than half the effort to complete the activity 2 The helper provides more than half the effort to complete the activity 1 Dependent. The helper does all the effort to complete an activity 7 Patient refused to complete or attempt activity 9 The patient did not perform the activity before the current illness or injury 88 Not attempted due to Medical conditions or safety concerns Transfers (B, C, W/C) (FIM): 3 Scootin Rollin Supine to/from Sit: 3 (HOB elevated, use of bedrail. Mod A supine to sit, min A sit to supine with verb inst for technique) Weight Bearing Right Lower Extremity: Right Full Weight Bearing Left Lower Extremity: Left Full Weight Bearing Exercises Seated Therapy Exercises: Long arc quads, Hip flexion Seated Reps: 10 ((+) trunk flex/ext) balance, trunk and LE strengthening exercises sitting EOB (15 min) x10 reps each with CGA to min A for balance Assessment Current Status: Good Progress PT Short Term Goals Short Term Goals Time Frame: Jan 19, 2019 Transfers (B,C,W/C) (FIM): 3 Gait (FIM): 2 Distance (FIM): 9=222-81 ft Gait Assistive Device: FWW PT [facility] Goals Commercial Helicopter Pilot Goals PT Commercial Helicopter Pilot Goals Time Frame: Feb 02, 2019 Transfers (B,C,W/C) (FIM): 6 Sit to Lying (QC): 6 Lying-Sitting on Side/Bed(QC): 6 Sit to Stand (QC): 6 Rollin Roll Left to Right (QC): 6 Chair/Zgl-ue-Hsiqr Xfer(QC): 6 Car Transfer (QC): 5 Does the Patient Walk: No and Walking Goal IS indicated Gait (FIM): 5 Gait distance (FIM): 8=343-44 ft Walk 10 feet (QC): 5 Walk 10ft-Uneven Surface(QC): 5 Walk 50ft with 2 Turns (QC): 5 Walk 150 ft (QC): 4 Gait Assistive Device: FWW Does the Pt use WC or Scooter?: No Stairs (FIM): 2 # of Steps: 4 1 Step (curb) (QC): 5 4 Steps (QC): 4 12 Steps (QC): 88 Picking up an Object (QC): 88 PT Plan Treatment/Plan Treatment Plan: Continue Plan of Care Treatment Plan: Bed Mobility, Education, Functional Activity Ralph, Functional Strength, Group Therapy, Gait, Safety, Therapeutic Exercise, Transfers Treatment Duration: Feb 02, 2019 Frequency: At least 5 of 7 days/Wk (IRF) Estimated Hrs Per Day: 1.5 hours per day Patient and/or Family Agrees t: Yes Safety Risks/Education Patient Education: Transfer Techniques, Correct Positioning, Safety Issues Teaching Recipient: Patient Teaching Methods: Demonstration, Discussion Response to Teaching: Verbalize Understanding, Return Demonstration, Reinforcement Needed Time/GCodes Time In: 940 Time Out: 957 Total Billed Treatment Time: 17 Total Billed Treatment 1 visit, FA x1 unit ADOLFO MILLIGAN JUNIOR COPYWRITER Jan 14, 2019 14:52
[2019-01-14] MEDS: HYDROcodone/APAP 7.5MG-325 MG/15 ML (LORTAB) UDC PO PRN (16:57)
[2019-01-14] MEDS: ENOXAPARIN 40 MG/0.4 ML (LOVENOX) SYR SC SCH (16:57)
[2019-01-14 18:00] VITALS: BP 132/71
[2019-01-14] MEDS: LIDOCAINE PATCH REMOVAL TP SCH (21:29)
[2019-01-15 05:42] VITALS: BP 124/74
[2019-01-15] MEDS: STERILE FOR IRRIGATION PO SCH ×3 (05:43)
[2019-01-15] MEDS: SUCRALFATE 1 GM (CARAFATE) TAB PO SCH ×3 (05:43→16:52)
[2019-01-15] MEDS: [UNRECOGNIZED DRUG - OTHER] PO SCH ×3 (05:43)
[2019-01-15] MEDS: HYDROcodone/APAP 7.5MG-325 MG/15 ML (LORTAB) UDC PO PRN (05:43)
[2019-01-15] MEDS: WATER PO SCH ×3 (05:43)
[2019-01-15] MEDS: SODIUM BICARBONATE PO SCH ×3 (05:43)
[2019-01-15] MEDS: NIACIN 500 MG TABLET PO SCH ×2 (05:43→16:52)
[2019-01-15] MEDS: inSUlin ASPART (NovoLOG) 1 UNIT/0.01 ML (CHARGE PER UNIT) SC SCH ×4 (05:44→21:02)
[2019-01-15] MEDS: ASCORBIC ACID (VIT C) 500 MG TABLET PO SCH (09:50)
[2019-01-15] MEDS: LOPERAMIDE 2 MG (IMODIUM) TABLET PO PRN (09:50)
[2019-01-15] MEDS: MULTIVIT W/MINERALS TAB (THERAGRAN M) PO SCH (09:50)
[2019-01-15] MEDS: THIAMINE 100 MG (VITAMIN B-1) TAB PO SCH ×2 (09:50→21:03)
[2019-01-15] MEDS: meTOprolol TARTRATE 25 MG (LOPRESSOR) TABLET PO SCH ×2 (09:50→21:02)
[2019-01-15] MEDS: LACTOBACILLUS ACIDOPHILUS (PROBIOTIC) CAPSULE PO SCH ×2 (09:50→21:02)
[2019-01-15] MEDS: OMEGA 3 (FISH OIL) 1000 MG CAP PO SCH ×2 (09:51→21:02)
[2019-01-15] MEDS: SILDENAFIL 20 MG (REVATIO) TAB NON-FORMULARY PO SCH ×3 (09:51→21:03)
[2019-01-15] MEDS: LIDOCAINE 4% (SALONPAS) PATCH TOP SCH (09:51)
[2019-01-15] MEDS: FOLIC ACID 1 MG TAB PO SCH (09:51)
[2019-01-15] MEDS: SENNA W/DOCUSATE (SENOKOT S) TABLET PO SCH ×2 (09:51→21:00)
[2019-01-15] MEDS: SCOPOLAMINE PATCH REMOVAL TP SCH (09:51)
[2019-01-15] MEDS: SCOPOLAMINE 1.5 MG (TRANSDERM-SCOP) PATCH TOP SCH (10:51)
--- NOTE | 2019-01-15 11:47 | PM&R Progress Note ---
Subjective HPI/CC On Admission Date Seen by Provider: Jan 15, 2019 Time Seen by Provider: 11:15 Chief complaint: Critical illness myopathy HPI: This is a 78yoWF known to me from ICU 9 hospital stay after a massive GI bleed requiring surgery by Dr. Talamantes who was ultimately transferred to [place] on a ventilator, took three weeks to wean off, had trach placed peg tube for tube feedings and has resulted in severe weakness in need of inpatient rehab, she is doing very well, having a speaking valve on her trach and is not capped at this point because she is so fatigued. Dr. Ding is the hooker laster who is working with her and is not comfortable capping the trach right now. She is eating 25-50% of the meals, she is receiving nocturnal tube feedings to supplement and overall she has severe weakness and will ultimately return home with her to continue recovery after inpatient rehab works on her strength. Subjective/Events-last exam Eating a 100% and feeling really good about that Doing very well since tube feeding was discontinued 3 nights ago Probiotic will be given to help diarrhea situation but hopefully since the tube feedings were discontinued that will occur naturally and will give Imodium as needed also since that would be a safe option Overall much improved and weakness is improving every day Denies any pain No shortness of breath Speaking valve is working very well with her trach but I did tell her the goal will be to remove the trach in the very near future Checked meds and labs Conferred with RN and reviewed therapy notes Review of Systems General: Fatigue, Malaise Objective Exam Vital Signs Vital Signs Date Time Temp Pulse Resp B/P (MAP) Pulse Ox O2 Delivery O2 Flow Rate FiO2 01/15/19 09:00 Room Air 01/15/19 05:42 97.4 80 20 124/74 (91) 98 01/14/19 07:21 6.00 28 Capillary Refill : Less Than 3 Seconds General Appearance: No Apparent Distress, WD/WN, Chronically ill, Thin HEENT: PERRL/EOMI, Normal ENT Inspection, Pharynx Normal, Moist Mucous Membranes, Other (trach in place) Neck: Full Range of Motion, Normal Inspection, Non Tender, Supple Respiratory: Chest Non Tender, Lungs Clear, No Accessory Muscle Use, No Respiratory Distress, Decreased Breath Sounds Cardiovascular: Regular Rate, Rhythm, No Edema, No Gallop, No JVD, No Murmur Gastrointestinal: Normal Bowel Sounds, No Organomegaly, No Pulsatile Mass, Non Tender, Soft, Other (PEG in place) Back: Normal Inspection, No CVA Tenderness, No Vertebral Tenderness Extremity: Normal Capillary Refill, Normal Inspection, Normal Range of Motion, Non Tender, No Calf Tenderness, No Pedal Edema Neurologic/Psychiatric: Alert, Oriented x3, Normal Mood/Affect, youth advocate II-XII Norm as Tested, Motor Weakness (3/5 all extremities) Skin: Normal Color, Warm/Dry Lymphatic: No Adenopathy Results/Procedures Lab Patient resulted labs reviewed. FIM Transfers Therapy Code Descriptions/Definitions Functional [place] Measure: 0=Not Assessed/NA 4=Minimal Assistance 1=Total Assistance 5=Supervision or Setup 2=Maximal Assistance 6=Modified [place] 3=Moderate Assistance 7=Complete [place] Therapy Quality Codes: 6 Independent with activity with or without an assistive device 5 Patient requires set up or clean up by helper. Patient completes activity by themselves 4 Supervision or touching assist (CGA). [place] provide cues , steadying assist 3 The helper provides less than half the effort to complete the activity 2 The helper provides more than half the effort to complete the activity 1 Dependent. The helper does all the effort to complete an activity 7 Patient refused to complete or attempt activity 9 The patient did not perform the activity before the current illness or injury 88 Not attempted due to Medical conditions or safety concerns Transfers (B, C, W/C) (FIM): 3 Scootin Rollin Roll Left to Right (QC): 2 Supine to/from Sit: 3 (HOB elevated, use of bedrail. Mod A supine to sit, min A sit to supine with verb inst for technique) Sit to/from Stand: 1 Sit to Lying (QC): 1 Sit to Stand (QC): 1 Chair/Yvh-dz-Jmjim Xfer(QC): 1 Bed to/from Chair: 2 Car Transfer (QC): 88 Gait Training Does the Patient Walk?: No and Walking Goal NOT indicated Gait (FIM): 0 (unable to stand at this time. ) Distance (FIM): 0=does not occure Walk 10 feet (QC): 88 Walk 50 ft with 2 Turns(QC): 88 Walk 150 ft (QC): 88 Walking 10ft/uneven surface-QC: 88 Wheelchair Training Does the Pt Use a Wheelchair?: Yes Wheelchair (FIM): 1 Wheelchair Distance: 1=up to 49 ft (25ft) Wheelchair Level of Assist: 2 Type of Wheelchair: Manual Stair Training Stairs (FIM): 0 1 Step (curb) (QC): 88 4 Steps (QC): 88 12 Steps (QC): 88 Balance Picking up an Object (QC): 88 Mental Status/Objective Comprehension: 7 Expression: 7 Social Interaction: 7 Problem Solvin Memory: 7 ADL-Treatment Feedin Eating (QC): 4 Groomin (pt demo ability to wash face. pt required assist to wash hair and comb hair ) Oral Hygiene (QC): 2 Bathin Bathing Location: L Arm, R Arm, Chest, Abdomen Shower/Bathe Self (QC): 2 Upper Extremity Dressin (required TA to apply jacket. ) Upper Body Dressing (QC): 1 Lower Extremity Dressin (pants) Lower Body Dressing (QC): 1 On/Off Footwear (QC): 1 (ayush shoes and socks ) Toiletin Toileting Hygiene (QC): 1 Toilet/Commode Transfer: 1 (SB X 2 person assist ) Toilet Transfer (QC): 1 (SB X 2 person assist ) Shower: 1 (SB X 2 person assist ) Assessment/Plan Assessment and Plan Assess & Plan/Chief Complaint Assessment: Myopathy (1) s/p Ventilator dependence Status: Acute (2) s/p Respiratory failure Status: Acute (3) Anemia due to acute blood loss Status: Acute (4) GERD (gastroesophageal reflux disease) Status: Chronic (5) Dementia Status: Chronic (6) s/p Acute GI bleeding Status: Acute (7) Weakness Status: Acute (8) s/p Transfusion of blood during current hospitalization Status: Acute (9) h/o Pyloric ulcer Status: Acute (10) Trach in place (11) PEG in place with TF at night now discontinued and eating 100 percent oral Plan: Monitor closely TF DC and now eating 100% Continue all meds as ordered Reviewed labs Appreciate Dr Lozada and will request him to see if we can discontinue trach Full code at 's request Unsure of the recoverability of this patient may ultimately need NHP Patient slow to improve but appears to be motivated Check labs tomorrow (1) Myopathy (2) GERD (gastroesophageal reflux disease) (3) Ventilator dependence (4) Hyperkalemia (5) Dementia (6) Pyloric ulcer (7) Tracheostomy in place (8) Transfusion history BO SUÁREZ DO Jan 15, 2019 11:47
[2019-01-15] MEDS: ROFLUMILAST 500 MCG TAB (DALIRESP) PO SCH (12:55)
[2019-01-15] MEDS: ENOXAPARIN 40 MG/0.4 ML (LOVENOX) SYR SC SCH (16:51)
[2019-01-15 17:39] VITALS: BP 119/70
[2019-01-15] MEDS: LIDOCAINE PATCH REMOVAL TP SCH (21:03)
[2019-01-16] MEDS: SUCRALFATE 1 GM (CARAFATE) TAB PO SCH ×4 (00:38→18:05)
[2019-01-16 05:49] VITALS: BP 114/56
[2019-01-16] MEDS: NIACIN 500 MG TABLET PO SCH ×2 (06:00→17:55)
[2019-01-16] MEDS: SODIUM BICARBONATE PO SCH ×3 (06:01)
[2019-01-16] MEDS: [UNRECOGNIZED DRUG - OTHER] PO SCH ×3 (06:01)
[2019-01-16] MEDS: STERILE FOR IRRIGATION PO SCH ×3 (06:01)
[2019-01-16] MEDS: WATER PO SCH ×3 (06:01)
[2019-01-16 06:19] LABS: BASOPHILS % (AUTO) 1 % (0-10); EOSINOPHILS # (AUTO) 0.4 10^3/uL (0.0-0.3); EOSINOPHILS % (AUTO) 7 % (0-10); HEMATOCRIT 29 % (35-52); LYMPHOCYTES % (AUTO) 18 % (12-44); MEAN CORPUSCULAR HEMOGLOBIN 28 PG (25-34); MEAN CORPUSCULAR HGB CONC 31 G/DL (32-36); MEAN CORPUSCULAR VOLUME 91 FL (80-99); MEAN PLATELET VOLUME 8.8 FL (7.4-10.4); MONOCYTES # (AUTO) 0.8 X 10^3 (0.0-1.0); MONOCYTES % (AUTO) 14 % (0-12); NEUTROPHILS # (AUTO) 3.4 X 10^3 (1.8-7.8); NEUTROPHILS % (AUTO) 61 % (42-75); PLATELET COUNT 321 10^3/uL (130-400); RED CELL DISTRIBUTION WIDTH 17.5 % (10.0-14.5); WHITE BLOOD COUNT 5.5 10^3/uL (4.3-11.0)
[2019-01-16 06:40] LABS: ALANINE AMINOTRANSFERASE 22 U/L (0-55); ALBUMIN 3.1 GM/DL (3.2-4.5); ALKALINE PHOSPHATASE 67 U/L (40-136); BILIRUBIN,TOTAL 0.4 MG/DL (0.1-1.0); BUN/CREATININE RATIO 21; CALCIUM 9.4 MG/DL (8.5-10.1); CARBON DIOXIDE 26 MMOL/L (21-32); CHLORIDE 103 MMOL/L (98-107); CREATININE SERUM 0.63 MG/DL (0.60-1.30); GFR ESTIMATED > 60; GLUCOSE 126 MG/DL (70-105); POTASSIUM 3.6 MMOL/L (3.6-5.0); SODIUM 138 MMOL/L (135-145); TOTAL PROTEIN 6.6 GM/DL (6.4-8.2)
[2019-01-16 08:00] VITALS: BP 127/74
[2019-01-16] MEDS: meTOprolol TARTRATE 25 MG (LOPRESSOR) TABLET PO SCH ×2 (08:28→20:42)
[2019-01-16] MEDS: FOLIC ACID 1 MG TAB PO SCH (08:29)
[2019-01-16] MEDS: THIAMINE 100 MG (VITAMIN B-1) TAB PO SCH ×2 (08:30→20:43)
[2019-01-16] MEDS: LACTOBACILLUS ACIDOPHILUS (PROBIOTIC) CAPSULE PO SCH ×2 (08:30→20:42)
[2019-01-16] MEDS: MULTIVIT W/MINERALS TAB (THERAGRAN M) PO SCH (08:30)
[2019-01-16] MEDS: LIDOCAINE 4% (SALONPAS) PATCH TOP SCH (08:30)
[2019-01-16] MEDS: OMEGA 3 (FISH OIL) 1000 MG CAP PO SCH ×2 (08:30→20:45)
[2019-01-16] MEDS: SILDENAFIL 20 MG (REVATIO) TAB NON-FORMULARY PO SCH ×3 (08:31→20:45)
[2019-01-16] MEDS: SENNA W/DOCUSATE (SENOKOT S) TABLET PO SCH ×2 (08:31→21:01)
[2019-01-16] MEDS: ASCORBIC ACID (VIT C) 500 MG TABLET PO SCH (08:31)
[2019-01-16] MEDS: HYDROcodone/APAP 7.5MG-325 MG/15 ML (LORTAB) UDC PO PRN (08:43)
[2019-01-16] MEDS: inSUlin ASPART (NovoLOG) 1 UNIT/0.01 ML (CHARGE PER UNIT) SC SCH (08:46)
--- NOTE | 2019-01-16 09:06 | PM&R Progress Note ---
Subjective HPI/CC On Admission Date Seen by Provider: Jan 16, 2019 Time Seen by Provider: 09:00 Chief complaint: Critical illness myopathy HPI: This is a 78yoWF known to me from ICU 9 hospital stay after a massive GI bleed requiring surgery by Dr. Talamantes who was ultimately transferred to [place] on a ventilator, took three weeks to wean off, had trach placed peg tube for tube feedings and has resulted in severe weakness in need of inpatient rehab, she is doing very well, having a speaking valve on her trach and is not capped at this point because she is so fatigued. Dr. Ding is the bilingual teacher who is working with her and is not comfortable capping the trach right now. She is eating 25-50% of the meals, she is receiving nocturnal tube feedings to supplement and overall she has severe weakness and will ultimately return home with her to continue recovery after inpatient rehab works on her strength. Subjective/Events-last exam Blood sugar is 126 Sliding scale insulin regimen will be discontinued since she is no longer on tube feedings Changed Hydrocodone to pill form since she was on liquid when she was through PEG tube Will consult Dr. Lozada to evaluate when we can discontinue trach May need to discontinue PEG tube here very soon also Speaking valve is working very well with her trach but I did tell her the goal will be to remove the trach in the very near future Checked meds and labs Conferred with RN and reviewed therapy notes Review of Systems General: Fatigue, Malaise Objective Exam Vital Signs Vital Signs Date Time Temp Pulse Resp B/P (MAP) Pulse Ox O2 Delivery O2 Flow Rate FiO2 01/16/19 16:13 97.1 67 16 118/71 (87) 90 Room Air 01/14/19 07:21 6.00 28 Capillary Refill : Less Than 3 Seconds General Appearance: No Apparent Distress, WD/WN, Chronically ill, Thin HEENT: PERRL/EOMI, Normal ENT Inspection, Pharynx Normal, Moist Mucous Membranes, Other (trach in place) Neck: Full Range of Motion, Normal Inspection, Non Tender, Supple Respiratory: Chest Non Tender, Lungs Clear, No Accessory Muscle Use, No Respiratory Distress, Decreased Breath Sounds Cardiovascular: Regular Rate, Rhythm, No Edema, No Gallop, No JVD, No Murmur Gastrointestinal: Normal Bowel Sounds, No Organomegaly, No Pulsatile Mass, Non Tender, Soft, Other (PEG in place) Back: Normal Inspection, No CVA Tenderness, No Vertebral Tenderness Extremity: Normal Capillary Refill, Normal Inspection, Normal Range of Motion, Non Tender, No Calf Tenderness, No Pedal Edema Neurologic/Psychiatric: Alert, Oriented x3, Normal Mood/Affect, software development manager II-XII Norm as Tested, Motor Weakness (3/5 all extremities) Skin: Normal Color, Warm/Dry Lymphatic: No Adenopathy Results/Procedures Lab Laboratory Tests 01/16/19 05:55 Patient resulted labs reviewed. FIM Transfers Therapy Code Descriptions/Definitions Functional [place] Measure: 0=Not Assessed/NA 4=Minimal Assistance 1=Total Assistance 5=Supervision or Setup 2=Maximal Assistance 6=Modified [place] 3=Moderate Assistance 7=Complete [place] Therapy Quality Codes: 6 Independent with activity with or without an assistive device 5 Patient requires set up or clean up by helper. Patient completes activity by themselves 4 Supervision or touching assist (CGA). [place] provide cues , steadying assist 3 The helper provides less than half the effort to complete the activity 2 The helper provides more than half the effort to complete the activity 1 Dependent. The helper does all the effort to complete an activity 7 Patient refused to complete or attempt activity 9 The patient did not perform the activity before the current illness or injury 88 Not attempted due to Medical conditions or safety concerns Transfers (B, C, W/C) (FIM): 3 Scootin Rollin Roll Left to Right (QC): 2 Supine to/from Sit: 3 (HOB elevated, use of bedrail. Mod A supine to sit, min A sit to supine with verb inst for technique) Sit to/from Stand: 1 Sit to Lying (QC): 1 Sit to Stand (QC): 1 Chair/Rca-ih-Fwvwr Xfer(QC): 1 Bed to/from Chair: 2 Car Transfer (QC): 88 Gait Training Does the Patient Walk?: No and Walking Goal NOT indicated Gait (FIM): 0 (unable to stand at this time. ) Distance (FIM): 0=does not occure Walk 10 feet (QC): 88 Walk 50 ft with 2 Turns(QC): 88 Walk 150 ft (QC): 88 Walking 10ft/uneven surface-QC: 88 Wheelchair Training Does the Pt Use a Wheelchair?: Yes Wheelchair (FIM): 1 Wheelchair Distance: 1=up to 49 ft (25ft) Wheelchair Level of Assist: 2 Type of Wheelchair: Manual Stair Training Stairs (FIM): 0 1 Step (curb) (QC): 88 4 Steps (QC): 88 12 Steps (QC): 88 Balance Picking up an Object (QC): 88 Mental Status/Objective Comprehension: 7 Expression: 7 Social Interaction: 7 Problem Solvin Memory: 7 ADL-Treatment Feedin Eating (QC): 4 Groomin (pt demo ability to wash face. pt required assist to wash hair and comb hair ) Oral Hygiene (QC): 2 Bathin Bathing Location: L Arm, R Arm, Chest, Abdomen Shower/Bathe Self (QC): 2 Upper Extremity Dressin (required TA to apply jacket. ) Upper Body Dressing (QC): 1 Lower Extremity Dressin (pants) Lower Body Dressing (QC): 1 On/Off Footwear (QC): 1 (ayush shoes and socks ) Toiletin Toileting Hygiene (QC): 1 Toilet/Commode Transfer: 1 (SB X 2 person assist ) Toilet Transfer (QC): 1 (SB X 2 person assist ) Shower: 1 (SB X 2 person assist ) Assessment/Plan Assessment and Plan Assess & Plan/Chief Complaint Assessment: Myopathy (1) s/p Ventilator dependence Status: Acute (2) s/p Respiratory failure Status: Acute (3) Anemia due to acute blood loss Status: Acute (4) GERD (gastroesophageal reflux disease) Status: Chronic (5) Dementia Status: Chronic (6) s/p Acute GI bleeding Status: Acute (7) Weakness Status: Acute (8) s/p Transfusion of blood during current hospitalization Status: Acute (9) h/o Pyloric ulcer Status: Acute (10) Trach in place (11) PEG in place with TF at night now discontinued and eating 100 percent oral Plan: Monitor closely TF DC and now eating 100% Continue all meds as ordered Reviewed labs Appreciate Dr Lozada and will request him to see if we can discontinue trach Full code at 's request Unsure of the recoverability of this patient may ultimately need NHP Patient slow to improve but appears to be motivated Check labs prin (1) Myopathy (2) GERD (gastroesophageal reflux disease) (3) Ventilator dependence (4) Hyperkalemia (5) Dementia (6) Pyloric ulcer (7) Tracheostomy in place (8) Transfusion history BO SUÁREZ DO Jan 16, 2019 09:06
--- NOTE | 2019-01-16 09:43 | Physical Therapy Daily Note ---
PT Daily Note-Current Subjective Reports she has had 2 episodes of diarrhea this morning. Agrees to PT. Transfers Therapy Code Descriptions/Definitions Functional [place] Measure: 0=Not Assessed/NA 4=Minimal Assistance 1=Total Assistance 5=Supervision or Setup 2=Maximal Assistance 6=Modified [place] 3=Moderate Assistance 7=Complete [place] Therapy Quality Codes: 6 Independent with activity with or without an assistive device 5 Patient requires set up or clean up by helper. Patient completes activity by themselves 4 Supervision or touching assist (CGA). [place] provide cues , steadying assist 3 The helper provides less than half the effort to complete the activity 2 The helper provides more than half the effort to complete the activity 1 Dependent. The helper does all the effort to complete an activity 7 Patient refused to complete or attempt activity 9 The patient did not perform the activity before the current illness or injury 88 Not attempted due to Medical conditions or safety concerns Transfers (B, C, W/C) (FIM): 1 Scootin Rollin Supine to/from Sit: 2 (HOB elevated; heavy cues for UE and LE placement and movement; max assist to come to sit EOB and to scoot to EOB) Sit to/from Stand: 1 (dependent) Bed to/from Chair: 1 Pt requires heavy cues to sequence and complete supine to sit; max assist to sit EOB; sitting EOB, retropulsive and with diminished balance; requires mod assist for seated balacne EOB. As the transfer to stand to the chair was initiated, pt was very retropulsive, grabbing at the air with her arms and generally fearful throughout the entire transfer. Minimal WB through her feet. This therapist had provided heavy cues/instruction on the technique to transfer and pt verbalized understanding; however, once the transfer was initiated, she became fearful and seemed to forget the process. Pt in wheelchair post treatmeht. Weight Bearing Right Lower Extremity: Right Full Weight Bearing Left Lower Extremity: Left Full Weight Bearing Exercises Supine Ex: Ankle pumps, Quad Set, Heel Slides, Short Arc Quads, Hip abd/add Supine Reps: 10 (to promote LE functional mobility and strength to progress bed mobility and transfers as well as isolate movement to initiate tasks.) Assessment Current Status: Fair Progress Pt needs assist with ther ex and much assist with bed mobility and transfers. PT Short Term Goals Short Term Goals Time Frame: Jan 19, 2019 Transfers (B,C,W/C) (FIM): 3 Gait (FIM): 2 Distance (FIM): 8=700-53 ft Gait Assistive Device: FWW PT Group Home Goals Carbon Grinder Goals PT Group Home Goals Time Frame: Feb 02, 2019 Transfers (B,C,W/C) (FIM): 6 Sit to Lying (QC): 6 Lying-Sitting on Side/Bed(QC): 6 Sit to Stand (QC): 6 Rollin Roll Left to Right (QC): 6 Chair/Nqb-nr-Tjogs Xfer(QC): 6 Car Transfer (QC): 5 Does the Patient Walk: No and Walking Goal IS indicated Gait (FIM): 5 Gait distance (FIM): 5=197-71 ft Walk 10 feet (QC): 5 Walk 10ft-Uneven Surface(QC): 5 Walk 50ft with 2 Turns (QC): 5 Walk 150 ft (QC): 4 Gait Assistive Device: FWW Does the Pt use WC or Scooter?: No Stairs (FIM): 2 # of Steps: 4 1 Step (curb) (QC): 5 4 Steps (QC): 4 12 Steps (QC): 88 Picking up an Object (QC): 88 PT Plan Problem List Problem List: Activity Tolerance, Functional Strength, Safety, Balance, Gait, Transfer, Bed Mobility Treatment/Plan Treatment Plan: Continue Plan of Care Treatment Plan: Bed Mobility, Education, Functional Activity Ralph, Functional Strength, Group Therapy, Gait, Safety, Therapeutic Exercise, Transfers Treatment Duration: Feb 02, 2019 Frequency: At least 5 of 7 days/Wk (IRF) Estimated Hrs Per Day: 1.5 hours per day Patient and/or Family Agrees t: Yes Safety Risks/Education Patient Education: Transfer Techniques, Safety Issues Teaching Recipient: Patient Teaching Methods: Demonstration, Discussion Response to Teaching: Reinforcement Needed Time/GCodes Time In: 900 Time Out: 915 Total Billed Treatment Time: 15 Total Billed Treatment visit EX 15 SALLY CENTENO PT Jan 16, 2019 09:42
--- NOTE | 2019-01-16 10:04 | Physical Therapy Daily Note ---
PT Daily Note-Current Subjective Pt. agrees to Rx and states she realizes she needs to work hard here but has such fears. Pt. stats she hasnt been home since Mar and liked [facility] in [place] just fine. States she doesnt want to get rid of her trach "its too soon, im not ready to go home" Pain Numeric Pain Scale: 4 Location: Medial Location Body Site: Knee (bilat with stance) Pain Description: Pressure Appearance frail, weak, fearful when TRFd and moved in space Mental Status Patient Orientation: Person, Place Attachments: PEG Tube, Other-See Comments (trach) Transfers Therapy Code Descriptions/Definitions Functional [place] Measure: 0=Not Assessed/NA 4=Minimal Assistance 1=Total Assistance 5=Supervision or Setup 2=Maximal Assistance 6=Modified [place] 3=Moderate Assistance 7=Complete [place] Therapy Quality Codes: 6 Independent with activity with or without an assistive device 5 Patient requires set up or clean up by helper. Patient completes activity by themselves 4 Supervision or touching assist (CGA). [place] provide cues , steadying assist 3 The helper provides less than half the effort to complete the activity 2 The helper provides more than half the effort to complete the activity 1 Dependent. The helper does all the effort to complete an activity 7 Patient refused to complete or attempt activity 9 The patient did not perform the activity before the current illness or injury 88 Not attempted due to Medical conditions or safety concerns Transfers (B, C, W/C) (FIM): 1 Scootin Rollin Supine to/from Sit: 2 Sit to/from Stand: 1 Bed to/from Chair: 1 multiple stance trials this am , SPTs, bilateral assist arm to arm, pull ups at bar etc, all requiring max assist of 2 with pt, fearful, hanging on to therapists arms and or arm of chair, fearful and resistive,weak Weight Bearing Right Lower Extremity: Right Full Weight Bearing Left Lower Extremity: Left Full Weight Bearing Wheelchair Training Does the Pt Use a Wheelchair?: Yes Wheelchair (FIM): 1 Wheelchair Distance: 1=up to 49 ft (15ftx3) Wheelchair Level of Assist: 3 Type of Wheelchair: Manual pt. has difficulty propelling w/c and needs mod assist to advance forward and max assist to brake, steering w/c is a challenge and also requires assist Exercises Supine Ex: Ankle pumps (HC stretches bilat 3 x 20 sec ea) Supine Reps: 4 Seated Therapy Exercises: Long arc quads Seated Reps: 10 Treatments co Rx with OT secondary to low level of function , pts. frailty for TRFs and movement, coordinated Rx for stabilization during sit and stance trials while pt attempts funct activity Assessment Current Status: Fair Progress noted some progress in endurance and sitting balance PT Short Term Goals Short Term Goals Time Frame: Jan 19, 2019 Transfers (B,C,W/C) (FIM): 3 Gait (FIM): 2 Distance (FIM): 0=516-56 ft Gait Assistive Device: FWW PT Interior Design Program Chair Goals [facility] Goals PT Interior Design Program Chair Goals Time Frame: Feb 02, 2019 Transfers (B,C,W/C) (FIM): 6 Sit to Lying (QC): 6 Lying-Sitting on Side/Bed(QC): 6 Sit to Stand (QC): 6 Rollin Roll Left to Right (QC): 6 Chair/Nos-pb-Yvpnn Xfer(QC): 6 Car Transfer (QC): 5 Does the Patient Walk: No and Walking Goal IS indicated Gait (FIM): 5 Gait distance (FIM): 7=442-02 ft Walk 10 feet (QC): 5 Walk 10ft-Uneven Surface(QC): 5 Walk 50ft with 2 Turns (QC): 5 Walk 150 ft (QC): 4 Gait Assistive Device: FWW Does the Pt use WC or Scooter?: No Stairs (FIM): 2 # of Steps: 4 1 Step (curb) (QC): 5 4 Steps (QC): 4 12 Steps (QC): 88 Picking up an Object (QC): 88 PT Plan Treatment/Plan Treatment Plan: Continue Plan of Care Treatment Plan: Bed Mobility, Education, Functional Activity Ralph, Functional Strength, Group Therapy, Gait, Safety, Therapeutic Exercise, Transfers Treatment Duration: Feb 02, 2019 Frequency: At least 5 of 7 days/Wk (IRF) Estimated Hrs Per Day: 1.5 hours per day Patient and/or Family Agrees t: Yes Safety Risks/Education Patient Education: Transfer Techniques, Correct Positioning, W/C Management, Disease Process, Safety Issues Teaching Recipient: Patient Teaching Methods: Demonstration, Discussion Response to Teaching: Verbalize Understanding, Reinforcement Needed Time/GCodes Time In: 915 Time Out: 1000 Total Billed Treatment Time: 45 Total Billed Treatment 1,FA20m,WC15m,EX10m G Codes Necessary: GARTH Fonseca ASBESTOS WORKER Jan 16, 2019 10:04
--- NOTE | 2019-01-16 10:23 | Occupational Ther Daily Note ---
OT Current Status-Daily Note Subjective pt sitting in recliner chair upon OT arrival. pt agreed to OT/ PT tx session. pt reports no pain. pt stated last time she was home was March 2018. Mental Status/Objective Therapy Code Descriptions/Definitions Functional [place] Measure: 0=Not Assessed/NA 4=Minimal Assistance 1=Total Assistance 5=Supervision or Setup 2=Maximal Assistance 6=Modified [place] 3=Moderate Assistance 7=Complete [place] ADL-Treatment Therapy Code Descriptions/Definitions Functional [place] Measure: 0=Not Assessed/NA 4=Minimal Assistance 1=Total Assistance 5=Supervision or Setup 2=Maximal Assistance 6=Modified [place] 3=Moderate Assistance 7=Complete [place] Therapy Quality Codes: 6 Independent with activity with or without an assistive device 5 Patient requires set up or clean up by helper. Patient completes activity by themselves 4 Supervision or touching assist (CGA). [place] provide cues , steadying assist 3 The helper provides less than half the effort to complete the activity 2 The helper provides more than half the effort to complete the activity 1 Dependent. The helper does all the effort to complete an activity 7 Patient refused to complete or attempt activity 9 The patient did not perform the activity before the current illness or injury 88 Not attempted due to Medical conditions or safety concerns Grooming (FIM): 5 (set up of items and cuing to pull self forward in chair to reach items. ) Upper Body Dressing (QC): 4 (required assist to pull down shirt. pt demo ability to thread ayush arms and groover runner head with set up) Lower Body Dressing (FIM): 1 (pants, socks, and Ayush shoes ) Lower Body Dressing (QC): 1 On/Off Footwear (QC): 1 Transfers (B, C, W/C) (FIM): 1 (w/c to recliner chair. MO D X 2 person assist. ) Other Treatment PT/OT co-treat completed for 45 minutes due to complexity of pt deficits requiring skills of both disciplines for TX session and safety of pt due to lack of strength/ coordination and activity tolerance at this time that could not be fulfilled by a rehabilitation supervisor. pt required hand over hand assist for self p ropelling w/c as cuing. once in gym pt stood in front of parallel bars.pt education on pulling self forward. noted increase fear during task requiring lots of encouragement. pt required MOD- MAX A to perform 4 sit to stands. OT focus on UE placement/ tactile cuing while PT focus on standing and gross movement. OT TX ONLY: post Co- treatment pt with OT for 45 minutes individual time. pt education HEP to increase UE strength for functional transfers. noted dynamometer RUE 12# LUE 10#. pt perform Ayush UE 10X1 using 1# dummbell shoulder flexion/ EXT/ ADD/ ABD. noted compensation during ex. and 10X1 elbow flex/ ext. pt then given peg board to increase reaching, static seated balance, mc kay machine operator strength. pt sitting in recliner chair with back unsupported. increase timing secondary to decrease FMC. pt transported back to room. pt sitting in recliner chair, call light, tray and phone within reach, all needs met. Education OT Patient Education: Correct positioning, Energy conservation, Home exercise program, Modified ADL techniques, Progress toward Goal/Update tx plan, Purpose of tx/functional activities, Reviewed precautions, Rehab process, Safety issues, Transfer techniques Teaching Recipient: Patient Teaching Methods: Demonstration, Discussion OT Short Term Goals Short Term Goals Eating(FIM): 3 Grooming(FIM): 3 Bathing(FIM): 3 Upper Body Dressing(FIM): 3 Lower Body Dressing(FIM): 3 Toileting(FIM): 3 Transfers (B,C,W/C) (FIM): 3 Toilet/Commode Transfer(FIM): 3 Shower Transfer(FIM): 3 1=Demonstrate adherence to instructed precautions during ADL tasks. 2=Patient will verbalize/demonstrate understanding of assistive devices/modifications for ADL. 3=Patient will improve strength/tolerance for activity to enable patient to perform ADL's. OT Drill Doctor Goals Correction Goals Eating (FIM): 6 Eating (QC): 6 Groomin Oral Hygiene (QC): 6 Bathing(FIM): 5 Bathing Location: L Arm, R Arm, L Upper Leg, R Upper Leg, L Lower Leg (including foot), R Lower Leg (including foot), Chest, Abdomen, Buttocks, Perineal Area Shower/Bathe Self (QC): 5 Upper Body Dressing(FIM): 5 Upper Body Dressing (QC): 5 Lower Body Dressing(FIM): 5 Lower Body Dressing (QC): 5 On/Off Footwear (QC): 5 Toileting(FIM): 5 Toileting Hygiene (QC): 5 Transfers (B,C,W/C) (FIM): 5 Toilet/Commode Transfer(FIM): 5 Toilet/Commode Transfer (QC): 5 Shower Transfer(FIM): 5 Additional Goals: 1-Demonstrate ADL Tasks, 2-Verbalize Understanding, 3- ImproveStrength/Ralph 1=Demonstrate adherence to instructed precautions during ADL tasks. 2=Patient will verbalize/demonstrate understanding of assistive devices/rj fications for ADL. 3=Patient will improve strength/tolerance for activity to enable patient to perform ADL's. OT Education/Plan Problem List/Assessment Assessment: Decreased Activ Tolerance, Decreased Safety Aware, Decreased UE Strength, Dependent Transfers, Impaired Bed Mobility, Impaired Coordination, Impaired Funct Balance, Impaired I ADL's, Impaired Self-Care Skills pt presents with functional limitations affecting areas of ADLs and functional transfers with the above mention. pt would benefit from skilled OT services to address above mention deficits and to increase independence with ADLs and functional transfers. pt is making progress with OT services. pt demo ability to maintain static sitting for approx 25 minutes without requiring rest break this date. Discharge Recommendations Plan/Recommendations: Continue POC Treatment Plan/Plan of Care Treatment,Training & Education: Yes Patient would benefit from OT for education, treatment and training to promote independence in ADL's, mobility, safety and/or upper extremity function for ADL's. Plan of Care: ADL Retraining, Caregiver Training, Cognitive Retraining, Concurrent Therapy, Functional Mobility, Group Exercise/Act as Ind, UE Funct Exercise/Act Treatment Duration: Feb 09, 2019 Frequency: At least 5 of 7 days/Wk (IRF) Estimated Hrs Per Day: 1 hour per day (60-90 minutes per day ) Agreement: Yes Rehab Potential: Fair Time/GCodes Start Time: 09:15 Stop Time: 10:45 Billed Treatment Time co -treat with PT for 45 minutes individual 45 minutes ADL 15 minutes, 1 unit FA 75 minutes, 5 units ANGELY CHOUDHURY OT Jan 16, 2019 10:23
[2019-01-16 12:00] VITALS: BP 117/68
[2019-01-16] MEDS: ROFLUMILAST 500 MCG TAB (DALIRESP) PO SCH (13:39)
--- NOTE | 2019-01-16 14:22 | Speech Therapy Daily Note ---
Speech Daily Progress Note Subjective Date Seen by Provider: Jan 16, 2019 Time Seen by Provider: 00:30 The patient was sitting in the [facility] area for her lunch today. Objective The patient utilized compensatory strategies for oral intake of her lunch at 80% with minimal cues. Assessment Assessment Current Status: Good Progress Treatment Plan Continue Plan of Care Communication Comprehension: 7 Expression: 7 Social Cognition Social Interaction: 7 Problem Solvin Memory: 7 Speech Short Term Goals Short Term Goals Short Term Goals 1) The patient will tolerate the least restrictive diet level without s/s of aspiration at 90% with minimal verbal cues. 2) The patient will utilize compensatory strategies as trained for safe oral intake at 90% or greater with minimal verbal cues. Speech Retirement Goals Php Mysql Web Developer Goals The patient will maintain adequate nutrition/hydration via safe effective swallow function with PEG tube as needed. Speech-Plan Patient/Family Goals Patient/Family Goals: The patient plans on returning home post rehab. Treatment Plan Speech Therapy Treatment Plan: Continue Plan of Care The patient is making good progress as a result of skilled ST services. Treatment Duration: Jan 20, 2019 Frequency: 5 times per week Estimated Hrs Per Day: .5 hour per day Rehab Potential: Fair Barriers to Learning: The patient has a complex medical status, however some of her medical needs have improved. Pt/Family Agrees to Plan: Yes Safety Risks/Education Teaching Recipient: Patient Teaching Methods: Discussion Response to Teaching: Verbalize Understanding Education Topics Provided: Continued safety with oral intake. Time Speech Therapy Time In: 13:00 Speech Therapy Time Out: 13:30 Total Billed Time: 30 Billed Treatment Time 1, SHIRLENE Oconnor Jan 16, 2019 14:22
--- NOTE | 2019-01-16 16:09 | Pulmonary Progress Note ---
Subjective Time Seen by a Provider: 08:08 Subjective/Events-last exam PT is doing better Sepsis Event Evaluation Height, Weight, BMI Height: 5'2.00" Weight: 118lbs. 0.0oz. 53.659779rf; 20.9 BMI Method:Actual Exam Exam Vital Signs Date Time Temp Pulse Resp B/P (MAP) Pulse Ox O2 Delivery O2 Flow Rate FiO2 01/16/19 12:00 98.3 85 20 117/68 (84) 95 Room Air 01/16/19 08:10 Room Air 01/16/19 08:00 98.7 92 18 127/74 (91) 96 Room Air 01/16/19 05:49 98.2 89 22 114/56 (75) 99 Room Air 01/15/19 21:00 Room Air 01/15/19 17:39 98.6 93 24 119/70 (86) 97 Room Air I & O 01/16/19 07:00 Intake Total 1960 ml Balance 1960 ml Height & Weight Height: 5'2.00" Weight: 118lbs. 0.0oz. 53.977298wk; 20.9 BMI Method:Actual General Appearance: No Apparent Distress, WD/WN, Chronically ill, Thin HEENT: PERRL/EOMI, Normal ENT Inspection, Pharynx Normal, Moist Mucous Membranes, Other (trach in place) Neck: Full Range of Motion, Normal Inspection, Non Tender, Supple Respiratory: Chest Non Tender, Lungs Clear, No Accessory Muscle Use, No Respiratory Distress, Decreased Breath Sounds Cardiovascular: Regular Rate, Rhythm, No Edema, No Gallop, No JVD, No Murmur Capillary Refill: Less Than 3 Seconds Gastrointestinal: normal bowel sounds, non tender, soft Extremity: Normal Capillary Refill, Normal Inspection, Normal Range of Motion, Non Tender, No Calf Tenderness, No Pedal Edema Neurologic/Psychiatric: Alert, Oriented x3, Normal Mood/Affect, expanded function dental assistant II-XII Norm as Tested, Motor Weakness (3/5 all extremities) Skin: Normal Color, Warm/Dry Lymphatic: No Adenopathy Results Lab Laboratory Tests 01/16/19 05:55 Assessment/Plan Assessment/Plan Chronic respiratory failure s/p tracheostomy -SVNS -Monitor -No complications noted -Check CT of chest -Will Cap trach tube and evaluate for decannulation Anemia with hx of GIB -Monitor ARJUN MEADE DO Jan 16, 2019 16:09
[2019-01-16 16:13] VITALS: BP 118/71
--- NOTE | 2019-01-16 16:52 | Diagnostic Imaging Report ---
PROCEDURE: CT chest with contrast only. TECHNIQUE: Multiple contiguous axial images were obtained through the chest after administration of intravenous contrast. Auto Exposure Controls were utilized during the CT exam to meet ALARA standards for radiation dose reduction. INDICATION: Shortness of breath. FINDINGS: Tracheostomy tube is in place. There are several old left posterior rib fractures. There is scarring in both lung bases right greater than left. There is no pleural or pericardial fluid. There is no pneumothorax. Heart size is normal. The thoracic aorta is normal in caliber without evidence of dissection. There are no discrete pulmonary nodules or masses. There is a 9 mm nonobstructing stone in the right renal pelvis. There is also a right renal cyst. There is a 3 mm nonobstructing stone in the left kidney. There is moderate thoracic spondylosis. There are postsurgical changes in the cervical spine. IMPRESSION: Minimal scarring in the lung bases bilaterally right greater than left. Several old left posterior rib fractures. Bilateral nephrolithiasis as well as a right renal cyst. Dictated by: Dictated on workstation # [id number]
[2019-01-16 17:29] LABS: ABG BASE EXCESS 4.5 MMOL/L (-2.5-2.5); ABG OXYGEN SATURATION 96 % (94-100); ABG PCO2 39 MMHG (35-45); ABG PH 7.47 (7.37-7.43); ABG PO2 70 MMHG (79-93); ABG TCO2 29.4 MMOL/L (21.0-31.0)
[2019-01-16 17:30] LABS: ALLENS TEST YES-POS; INSPIRED O2 RA; PATIENT TEMP 98.1; VENTILATOR NO
[2019-01-16] MEDS: ENOXAPARIN 40 MG/0.4 ML (LOVENOX) SYR SC SCH (17:55)
[2019-01-16] MEDS: HYDROcodone/APAP 7.5 MG/325 MG (LORTAB, LORCET PLUS) TABLET PO PRN (17:55)
[2019-01-16] MEDS: LIDOCAINE PATCH REMOVAL TP SCH (21:02)
[2019-01-17] MEDS: SUCRALFATE 1 GM (CARAFATE) TAB PO SCH ×4 (00:25→17:30)
[2019-01-17 05:19] VITALS: BP 126/67
[2019-01-17] MEDS: NIACIN 500 MG TABLET PO SCH ×2 (06:04→17:30)
[2019-01-17] MEDS: [UNRECOGNIZED DRUG - OTHER] PO SCH ×3 (06:09)
[2019-01-17] MEDS: STERILE FOR IRRIGATION PO SCH ×3 (06:09)
[2019-01-17] MEDS: SODIUM BICARBONATE PO SCH ×3 (06:09)
[2019-01-17] MEDS: WATER PO SCH ×3 (06:09)
[2019-01-17] MEDS: LIDOCAINE 4% (SALONPAS) PATCH TOP SCH (09:29)
[2019-01-17] MEDS: ASCORBIC ACID (VIT C) 500 MG TABLET PO SCH (09:29)
[2019-01-17] MEDS: MULTIVIT W/MINERALS TAB (THERAGRAN M) PO SCH (09:29)
[2019-01-17] MEDS: THIAMINE 100 MG (VITAMIN B-1) TAB PO SCH ×2 (09:30→20:22)
[2019-01-17] MEDS: meTOprolol TARTRATE 25 MG (LOPRESSOR) TABLET PO SCH ×2 (09:30→20:22)
[2019-01-17] MEDS: FOLIC ACID 1 MG TAB PO SCH (09:30)
[2019-01-17] MEDS: LOPERAMIDE 2 MG (IMODIUM) TABLET PO PRN ×2 (09:30→20:24)
[2019-01-17] MEDS: LACTOBACILLUS ACIDOPHILUS (PROBIOTIC) CAPSULE PO SCH ×2 (09:30→20:22)
[2019-01-17] MEDS: OMEGA 3 (FISH OIL) 1000 MG CAP PO SCH ×2 (09:30→20:21)
[2019-01-17] MEDS: SILDENAFIL 20 MG (REVATIO) TAB NON-FORMULARY PO SCH ×3 (09:32→20:21)
[2019-01-17] MEDS: SENNA W/DOCUSATE (SENOKOT S) TABLET PO SCH (09:32)
--- NOTE | 2019-01-17 09:41 | PM&R Progress Note ---
Subjective HPI/CC On Admission Date Seen by Provider: Jan 17, 2019 Time Seen by Provider: 09:00 Chief complaint: Critical illness myopathy HPI: This is a 78yoWF known to me from ICU 9 hospital stay after a massive GI bleed requiring surgery by Dr. Talamantes who was ultimately transferred to [place] on a ventilator, took three weeks to wean off, had trach placed peg tube for tube feedings and has resulted in severe weakness in need of inpatient rehab, she is doing very well, having a speaking valve on her trach and is not capped at this point because she is so fatigued. Dr. Ding is the certified anesthesiologist assistant who is working with her and is not comfortable capping the trach right now. She is eating 25-50% of the meals, she is receiving nocturnal tube feedings to supplement and overall she has severe weakness and will ultimately return home with her to continue recovery after inpatient rehab works on her strength. Subjective/Events-last exam She had a bit of a fall in CT scan since she is fully dependent and can not be upright for very long without complete support CT chest was ordered by Dr. Lozada since we are working on removing the trach PEG tube will hopefully be discontinued next week as long as she continues to eat well Checked med and labs Reviewed therapy notes Conferred with campus coordinator of Systems General: Fatigue, Malaise Objective Exam Vital Signs Vital Signs Date Time Temp Pulse Resp B/P (MAP) Pulse Ox O2 Delivery O2 Flow Rate FiO2 01/17/19 16:05 98.3 90 16 104/60 (75) 97 Room Air 01/14/19 07:21 6.00 28 Capillary Refill : Less Than 3 Seconds General Appearance: No Apparent Distress, WD/WN, Chronically ill, Thin HEENT: PERRL/EOMI, Normal ENT Inspection, Pharynx Normal, Moist Mucous Membranes, Other (trach in place) Neck: Full Range of Motion, Normal Inspection, Non Tender, Supple Respiratory: Chest Non Tender, Lungs Clear, No Accessory Muscle Use, No Respiratory Distress, Decreased Breath Sounds Cardiovascular: Regular Rate, Rhythm, No Edema, No Gallop, No JVD, No Murmur Gastrointestinal: Normal Bowel Sounds, No Organomegaly, No Pulsatile Mass, Non Tender, Soft, Other (PEG in place) Back: Normal Inspection, No CVA Tenderness, No Vertebral Tenderness Extremity: Normal Capillary Refill, Normal Inspection, Normal Range of Motion, Non Tender, No Calf Tenderness, No Pedal Edema Neurologic/Psychiatric: Alert, Oriented x3, Normal Mood/Affect, campus executive director II-XII Norm as Tested, Motor Weakness (3/5 all extremities) Skin: Normal Color, Warm/Dry Lymphatic: No Adenopathy Results/Procedures Lab Patient resulted labs reviewed. FIM Transfers Therapy Code Descriptions/Definitions Functional [place] Measure: 0=Not Assessed/NA 4=Minimal Assistance 1=Total Assistance 5=Supervision or Setup 2=Maximal Assistance 6=Modified [place] 3=Moderate Assistance 7=Complete [place] Therapy Quality Codes: 6 Independent with activity with or without an assistive device 5 Patient requires set up or clean up by helper. Patient completes activity by themselves 4 Supervision or touching assist (CGA). [place] provide cues , steadying assist 3 The helper provides less than half the effort to complete the activity 2 The helper provides more than half the effort to complete the activity 1 Dependent. The helper does all the effort to complete an activity 7 Patient refused to complete or attempt activity 9 The patient did not perform the activity before the current illness or injury 88 Not attempted due to Medical conditions or safety concerns Transfers (B, C, W/C) (FIM): 1 (w/c to recliner chair. MO D X 2 person assist. ) Scootin Rollin Roll Left to Right (QC): 2 Supine to/from Sit: 2 Sit to/from Stand: 1 Sit to Lying (QC): 1 Sit to Stand (QC): 1 Chair/Efm-lo-Nmumc Xfer(QC): 1 Bed to/from Chair: 1 Car Transfer (QC): 88 Gait Training Does the Patient Walk?: No and Walking Goal NOT indicated Gait (FIM): 0 (unable to stand at this time. ) Distance (FIM): 0=does not occure Walk 10 feet (QC): 88 Walk 50 ft with 2 Turns(QC): 88 Walk 150 ft (QC): 88 Walking 10ft/uneven surface-QC: 88 Wheelchair Training Does the Pt Use a Wheelchair?: Yes Wheelchair (FIM): 1 Wheelchair Distance: 1=up to 49 ft (15ftx3) Wheelchair Level of Assist: 3 Type of Wheelchair: Manual Stair Training Stairs (FIM): 0 1 Step (curb) (QC): 88 4 Steps (QC): 88 12 Steps (QC): 88 Balance Picking up an Object (QC): 88 Mental Status/Objective Comprehension: 7 Expression: 7 Social Interaction: 7 Problem Solvin Memory: 7 ADL-Treatment Feedin Eating (QC): 4 Groomin (set up of items and cuing to pull self forward in chair to reach items. ) Oral Hygiene (QC): 2 Bathin Bathing Location: L Arm, R Arm, Chest, Abdomen Shower/Bathe Self (QC): 2 Upper Extremity Dressin (required TA to apply jacket. ) Upper Body Dressing (QC): 4 (required assist to pull down shirt. pt demo ability to thread mukund arms and cable puller head with set up) Lower Extremity Dressin (pants, socks, and Mukund shoes ) Lower Body Dressing (QC): 1 On/Off Footwear (QC): 1 Toiletin Toileting Hygiene (QC): 1 Toilet/Commode Transfer: 1 (SB X 2 person assist ) Toilet Transfer (QC): 1 (SB X 2 person assist ) Shower: 1 (SB X 2 person assist ) Assessment/Plan Assessment and Plan Assess & Plan/Chief Complaint Assessment: Myopathy (1) s/p Ventilator dependence Status: Acute (2) s/p Respiratory failure Status: Acute (3) Anemia due to acute blood loss Status: Acute (4) GERD (gastroesophageal reflux disease) Status: Chronic (5) Dementia Status: Chronic (6) s/p Acute GI bleeding Status: Acute (7) Weakness Status: Acute (8) s/p Transfusion of blood during current hospitalization Status: Acute (9) h/o Pyloric ulcer Status: Acute (10) Trach in place (11) PEG in place with TF at night now discontinued and eating 100 percent oral Plan: Monitor closely TF DC and now eating 100% Continue all meds as ordered Reviewed labs Appreciate Dr Lozada and will request him to see if we can discontinue trach Full code at 's request Unsure of the recoverability of this patient may ultimately need NHP Patient slow to improve but appears to be motivated Check labs prn Reviewed CT chest (1) Myopathy (2) GERD (gastroesophageal reflux disease) (3) Ventilator dependence (4) Hyperkalemia (5) Dementia (6) Pyloric ulcer (7) Tracheostomy in place (8) Transfusion history BO SUÁREZ DO Jan 17, 2019 09:41
--- NOTE | 2019-01-17 10:31 | Occupational Ther Daily Note ---
OT Current Status-Daily Note Subjective pt laying in bed upon OT arrival. pt agreed to OT TX session with focus on increasing independence with ADLs./ functional transfers. pt reports no pain. Co- treatment with PT for 60 minutes Mental Status/Objective Therapy Code Descriptions/Definitions Functional [place] Measure: 0=Not Assessed/NA 4=Minimal Assistance 1=Total Assistance 5=Supervision or Setup 2=Maximal Assistance 6=Modified [place] 3=Moderate Assistance 7=Complete [place] Attachments: PEG Tube ADL-Treatment Therapy Code Descriptions/Definitions Functional [place] Measure: 0=Not Assessed/NA 4=Minimal Assistance 1=Total Assistance 5=Supervision or Setup 2=Maximal Assistance 6=Modified [place] 3=Moderate Assistance 7=Complete [place] Therapy Quality Codes: 6 Independent with activity with or without an assistive device 5 Patient requires set up or clean up by helper. Patient completes activity by themselves 4 Supervision or touching assist (CGA). [place] provide cues , steadying assist 3 The helper provides less than half the effort to complete the activity 2 The helper provides more than half the effort to complete the activity 1 Dependent. The helper does all the effort to complete an activity 7 Patient refused to complete or attempt activity 9 The patient did not perform the activity before the current illness or injury 88 Not attempted due to Medical conditions or safety concerns Eating (FIM): 5 (requires set up secodanry to decrease FMC ) Eating (QC): 4 Grooming (FIM): 4 (washing face, brushing teeth, washing hands. pt required assist with positioning for performing task. required cuing to positioning and hand over hand assist ) Oral Hygiene (QC): 4 Bathing (FIM): 4 (required assist with buttock and fernando. pt education on use of LHS to increas independence. ) Bathing Location: L Arm, R Arm, L Upper Leg, R Upper Leg, L Lower Leg (including foot), R Lower Leg (including foot), Chest, Abdomen Shower/Bathe Self (QC): 4 Upper Body (FIM): 4 Upper Body Dressing (QC): 4 Lower Body Dressing (FIM): 1 (pants, Mukund socks. pt required TA for Mukund socks. pt education on use of body component engineer to perform LB dressing. pt demo ability to thread Mukund LE but required TA for pull up pants ) Lower Body Dressing (QC): 1 On/Off Footwear (QC): 1 Toileting (FIM): 1 Toileting Hygiene (QC): 1 Transfers (B, C, W/C) (FIM): 1 Toilet/Commode Transfer (FIM): 1 pt demo incontinence four times during tx session of bowel and bladder. Co- treatment with PT for 60 minutes. PT focus on functional transfers static seated balance while OT focus on increase independence with ADLS. pt reuqired MAX A to perform bed mobility, and TA to perform functional transfers. 30 minutes individual with OT. session focus on increasing independence with grooming. pt demo ability to comb hair, brush teeth with max cuing for positioning. pt laying in bed post OT session with NSG present in room. all n eeds met/ Education OT Patient Education: Correct positioning, Energy conservation, Modified ADL techniques, Progress toward Goal/Update tx plan, Purpose of tx/functional activities, Reviewed precautions, Rehab process, Safety issues, Transfer techniques, Use of adapted equipment Teaching Recipient: Patient Teaching Methods: Demonstration, Discussion Response to Teaching: Verbalize Understanding, Return Demonstration OT Short Term Goals Short Term Goals Eating(FIM): 3 Grooming(FIM): 3 Bathing(FIM): 3 Upper Body Dressing(FIM): 3 Lower Body Dressing(FIM): 3 Toileting(FIM): 3 Transfers (B,C,W/C) (FIM): 3 Toilet/Commode Transfer(FIM): 3 Shower Transfer(FIM): 3 1=Demonstrate adherence to instructed precautions during ADL tasks. 2=Patient will verbalize/demonstrate understanding of assistive devices/modifications for ADL. 3=Patient will improve strength/tolerance for activity to enable patient to perform ADL's. OT Retirement Goals Retirement Goals Time Frame: Feb 07, 2019 Eating (FIM): 6 Eating (QC): 6 Groomin Oral Hygiene (QC): 6 Bathing(FIM): 5 Bathing Location: L Arm, R Arm, L Upper Leg, R Upper Leg, L Lower Leg (including foot), R Lower Leg (including foot), Chest, Abdomen, Buttocks, Perineal Area Shower/Bathe Self (QC): 5 Upper Body Dressing(FIM): 5 Upper Body Dressing (QC): 5 Lower Body Dressing(FIM): 5 Lower Body Dressing (QC): 5 On/Off Footwear (QC): 5 Toileting(FIM): 5 Toileting Hygiene (QC): 5 Transfers (B,C,W/C) (FIM): 5 Toilet/Commode Transfer(FIM): 5 Toilet/Commode Transfer (QC): 5 Shower Transfer(FIM): 5 Additional Goals: 1-Demonstrate ADL Tasks, 2-Verbalize Understanding, 3- ImproveStrength/Ralph 1=Demonstrate adherence to instructed precautions during ADL tasks. 2=Patient will verbalize/demonstrate understanding of assistive devices/ modifications for ADL. 3=Patient will improve strength/tolerance for activity to enable patient to perform ADL's. OT Education/Plan Problem List/Assessment Assessment: Decreased Activ Tolerance, Decreased Safety Aware, Decreased UE Strength, Dependent Transfers, Impaired Bed Mobility, Impaired Cognition, Impaired Coordination, Impaired Funct Balance, Impaired I ADL's, Impaired Self- Care Skills pt presents with functional limitations affecting areas of ADLs and functional transfers with the above mention. pt would benefit from skilled OT services to address above mention deficits and to increase independence with ADLs and functional transfers. Discharge Recommendations Plan/Recommendations: Continue POC Treatment Plan/Plan of Care Treatment,Training & Education: Yes Patient would benefit from OT for education, treatment and training to promote independence in ADL's, mobility, safety and/or upper extremity function for ADL's. Plan of Care: ADL Retraining, Caregiver Training, Cognitive Retraining, Concur rent Therapy, Functional Mobility, Group Exercise/Act as Ind, UE Funct Exercise/Act Treatment Duration: Feb 09, 2019 Frequency: At least 5 of 7 days/Wk (IRF) Estimated Hrs Per Day: 1 hour per day (60-90 minutes per day ) Agreement: Yes Rehab Potential: Fair Time/GCodes Start Time: 09:00 Stop Time: 10:30 Billed Treatment Time co- treatment with PT 60 minutes individual 30 minutes ADL 6 units ANGELY CHOUDHURY OT Jan 17, 2019 10:31
--- NOTE | 2019-01-17 11:39 | Speech Therapy Daily Note ---
Speech Daily Progress Note Subjective Date Seen by Provider: Jan 17, 2019 Time Seen by Provider: 00:30 The patient was resting in bed after her shower with OT. Objective The patient completed compensatory strategies with 90% accuracy given minimal cues. Assessment Assessment Current Status: Good Progress Treatment Plan Continue Plan of Care Communication Comprehension: 7 Expression: 7 Social Cognition Social Interaction: 7 Problem Solvin Memory: 7 Speech Short Term Goals Short Term Goals Short Term Goals 1) The patient will tolerate the least restrictive diet level without s/s of aspiration at 90% with minimal verbal cues. 2) The patient will utilize compensatory strategies as trained for safe oral intake at 90% or greater with minimal verbal cues. Speech Mat Cutter Goals Half-Way Goals The patient will maintain adequate nutrition/hydration via safe effective swallow function with PEG tube as needed. Speech-Plan Patient/Family Goals Patient/Family Goals: The patient plans on returning home with her post rehab. Treatment Plan Speech Therapy Treatment Plan: Continue Plan of Care The patient is making good progress as a result of skilled ST. Treatment Duration: Jan 20, 2019 Frequency: 5 times per week Estimated Hrs Per Day: .5 hour per day Rehab Potential: Fair Barriers to Learning: The patient has a complex medical status. Pt/Family Agrees to Plan: Yes Safety Risks/Education Teaching Recipient: Patient Teaching Methods: Discussion Response to Teaching: Verbalize Understanding Education Topics Provided: Contined communication of her wants/needs, safe intake. Time Speech Therapy Time In: 10:30 Speech Therapy Time Out: 11:00 Total Billed Time: 30 Billed Treatment Time 1, SHIRLENE Oconnro Jan 17, 2019 11:38
--- NOTE | 2019-01-17 11:59 | Physical Therapy Daily Note ---
PT Daily Note-Current Subjective Pt laying Supine in bed upon arrival. Pt agrees to PT/OT co-treat. Pt reports feeling as though she has had a BM and urination to start tx. Mental Status Patient Orientation: Person, Place Transfers Therapy Code Descriptions/Definitions Functional [place] Measure: 0=Not Assessed/NA 4=Minimal Assistance 1=Total Assistance 5=Supervision or Setup 2=Maximal Assistance 6=Modified [place] 3=Moderate Assistance 7=Complete [place] Therapy Quality Codes: 6 Independent with activity with or without an assistive device 5 Patient requires set up or clean up by helper. Patient completes activity by themselves 4 Supervision or touching assist (CGA). [place] provide cues , steadying assist 3 The helper provides less than half the effort to complete the activity 2 The helper provides more than half the effort to complete the activity 1 Dependent. The helper does all the effort to complete an activity 7 Patient refused to complete or attempt activity 9 The patient did not perform the activity before the current illness or injury 88 Not attempted due to Medical conditions or safety concerns Scootin Rollin Roll Left to Right (QC): 1 Supine to/from Sit: 1 Sit to/from Stand: 1 Sit to Stand (QC): 1 Chair/Sym-da-Zpdqz Xfer(QC): 1 Bed to/from Chair: 1 Weight Bearing Right Lower Extremity: Right Full Weight Bearing Left Lower Extremity: Left Full Weight Bearing Exercises Supine Ex: Rolling, Scooting Standing: Sit to Stand (to don pants) Treatments pt demo incontinence four times during tx session of bowel and bladder. Co- treatment with PT for 60 minutes. PT focus on functional transfers static seated balance while OT focus on increase independence with ADLS. Pt required MAX A to perform bed mobility, and TA to perform functional transfers. Assessment Current Status: Fair Progress Pt continues to be limited by fear during transfers and mobility. Pt also demonstrates extreme weakness especially with sitting balance. Pt has difficulty remaining sitting up while bathing. PT Short Term Goals Short Term Goals Time Frame: Jan 19, 2019 Transfers (B,C,W/C) (FIM): 3 Gait (FIM): 2 Distance (FIM): 6=941-99 ft Gait Assistive Device: FWW PT [facility] Goals Auditing Specialist Goals PT Auditing Specialist Goals Time Frame: Feb 02, 2019 Transfers (B,C,W/C) (FIM): 6 Sit to Lying (QC): 6 Lying-Sitting on Side/Bed(QC): 6 Sit to Stand (QC): 6 Rollin Roll Left to Right (QC): 6 Chair/Gmv-kn-Ccdcx Xfer(QC): 6 Car Transfer (QC): 5 Does the Patient Walk: No and Walking Goal IS indicated Gait (FIM): 5 Gait distance (FIM): 4=924-97 ft Walk 10 feet (QC): 5 Walk 10ft-Uneven Surface(QC): 5 Walk 50ft with 2 Turns (QC): 5 Walk 150 ft (QC): 4 Gait Assistive Device: FWW Does the Pt use WC or Scooter?: No Stairs (FIM): 2 # of Steps: 4 1 Step (curb) (QC): 5 4 Steps (QC): 4 12 Steps (QC): 88 Picking up an Object (QC): 88 PT Plan Problem List Problem List: Activity Tolerance, Functional Strength, Safety, Balance, Transfer, Bed Mobility Treatment/Plan Treatment Plan: Continue Plan of Care Treatment Plan: Bed Mobility, Education, Functional Activity Ralph, Functional Strength, Group Therapy, Gait, Safety, Therapeutic Exercise, Transfers Treatment Duration: Feb 02, 2019 Frequency: At least 5 of 7 days/Wk (IRF) Estimated Hrs Per Day: 1.5 hours per day Patient and/or Family Agrees t: Yes Safety Risks/Education Patient Education: Transfer Techniques, Correct Positioning, Safety Issues Teaching Recipient: Patient Teaching Methods: Discussion Response to Teaching: Verbalize Understanding, Reinforcement Needed Time/GCodes Time In: 900 Time Out: 1000 Total Billed Treatment Time: 60 Total Billed Treatment 1, FA x4 (60m) Co-treat with OT for 60m G Codes Necessary: PIERRE Arboleda PTA Jan 17, 2019 11:59
[2019-01-17] MEDS: ROFLUMILAST 500 MCG TAB (DALIRESP) PO SCH (13:47)
--- NOTE | 2019-01-17 15:02 | Occupational Ther Daily Note ---
OT Current Status-Daily Note Mental Status/Objective Therapy Code Descriptions/Definitions Functional [place] Measure: 0=Not Assessed/NA 4=Minimal Assistance 1=Total Assistance 5=Supervision or Setup 2=Maximal Assistance 6=Modified [place] 3=Moderate Assistance 7=Complete [place] OT Short Term Goals Short Term Goals Eating(FIM): 3 Grooming(FIM): 3 Bathing(FIM): 3 Upper Body Dressing(FIM): 3 Lower Body Dressing(FIM): 3 Toileting(FIM): 3 Transfers (B,C,W/C) (FIM): 3 Toilet/Commode Transfer(FIM): 3 Shower Transfer(FIM): 3 1=Demonstrate adherence to instructed precautions during ADL tasks. 2=Patient will verbalize/demonstrate understanding of assistive devices/modifications for ADL. 3=Patient will improve strength/tolerance for activity to enable patient to perform ADL's. OT Television Program Director Goals Television Program Director Goals Time Frame: Feb 07, 2019 Eating (FIM): 6 Grooming(FIM): 6 Bathing(FIM): 5 Bathing Location: L Arm, R Arm, L Upper Leg, R Upper Leg, L Lower Leg (including foot), R Lower Leg (including foot), Chest, Abdomen, Buttocks, Perineal Area Upper Body Dressing(FIM): 5 Lower Body Dressing(FIM): 5 Toileting(FIM): 5 Transfers (B,C,W/C) (FIM): 5 Toilet/Commode Transfer(FIM): 5 Shower Transfer(FIM): 5 Additional Goals: 1-Demonstrate ADL Tasks, 2-Verbalize Understanding, 3-ImproveStrength/Ralph 1=Demonstrate adherence to instructed precautions during ADL tasks. 2=Patient will verbalize/demonstrate understanding of assistive devices/modifications for ADL. 3=Patient will improve strength/tolerance for activity to enable patient to perform ADL's. OT Education/Plan Problem List/Assessment pt presents with functional limitations affecting areas of ADLs and functional transfers with the above mention. pt would benefit from skilled OT services to address above mention deficits and to increase independence with ADLs and functional transfers. Treatment Plan/Plan of Care Patient would benefit from OT for education, treatment and training to promote independence in ADL's, mobility, safety and/or upper extremity function for ADL's. Plan of Care: ADL Retraining, Caregiver Training, Cognitive Retraining, C oncurrent Therapy, Functional Mobility, Group Exercise/Act as Ind, UE Funct Exercise/Act Treatment Duration: Feb 09, 2019 Frequency: At least 5 of 7 days/Wk (IRF) Estimated Hrs Per Day: 1 hour per day (60-90 minutes per day ) Agreement: Yes Rehab Potential: ANGELY Doan OT Jan 17, 2019 15:02
--- NOTE | 2019-01-17 15:25 | Pulmonary Progress Note ---
Subjective Time Seen by a Provider: 08:07 Subjective/Events-last exam Pt wants trach tube out. Sepsis Event Evaluation Height, Weight, BMI Height: 5'2.00" Weight: 118lbs. 0.0oz. 53.413149zo; 20.9 BMI Method:Actual Exam Exam Vital Signs Date Time Temp Pulse Resp B/P (MAP) Pulse Ox O2 Delivery O2 Flow Rate FiO2 01/17/19 11:06 Room Air 01/17/19 09:00 Room Air 01/17/19 05:19 97.9 86 20 126/67 (86) 100 01/16/19 21:00 98 Room Air 01/16/19 16:13 97.1 67 16 118/71 (87) 90 Room Air I & O 01/17/19 07:00 Intake Total 700 ml Balance 700 ml Height & Weight Height: 5'2.00" Weight: 118lbs. 0.0oz. 53.726347za; 20.9 BMI Method:Actual General Appearance: No Apparent Distress, WD/WN, Chronically ill, Thin HEENT: PERRL/EOMI, Normal ENT Inspection, Pharynx Normal, Moist Mucous Membranes, Other (trach in place) Neck: Full Range of Motion, Normal Inspection, Non Tender, Supple Respiratory: Chest Non Tender, Lungs Clear, No Accessory Muscle Use, No Respiratory Distress, Decreased Breath Sounds Cardiovascular: Regular Rate, Rhythm, No Edema, No Gallop, No JVD, No Murmur Capillary Refill: Less Than 3 Seconds Gastrointestinal: normal bowel sounds, non tender, soft Extremity: Normal Capillary Refill, Normal Inspection, Normal Range of Motion, Non Tender, No Calf Tenderness, No Pedal Edema Neurologic/Psychiatric: Alert, Oriented x3, Normal Mood/Affect, talent coordinator II-XII Norm as Tested, Motor Weakness (3/5 all extremities) Skin: Normal Color, Warm/Dry Lymphatic: No Adenopathy Results Lab Laboratory Tests 01/16/19 05:55 Assessment/Plan Assessment/Plan Chronic respiratory failure s/p tracheostomy -SVNS -Monitor -No complications noted -Check CT of chest -Cap trach tube and continue to evaluate for decannulation Anemia with hx of GIB -Monitor ARJUN MEADE DO Jan 17, 2019 15:25
[2019-01-17] MEDS: HYDROcodone/APAP 7.5 MG/325 MG (LORTAB, LORCET PLUS) TABLET PO PRN ×2 (15:26→20:24)
[2019-01-17 16:05] VITALS: BP 104/60
[2019-01-17] MEDS: ENOXAPARIN 40 MG/0.4 ML (LOVENOX) SYR SC SCH (17:30)
[2019-01-17] MEDS: LIDOCAINE PATCH REMOVAL TP SCH (20:27)
[2019-01-18] MEDS: SUCRALFATE 1 GM (CARAFATE) TAB PO SCH ×4 (00:12→18:20)
[2019-01-18 05:50] VITALS: BP 110/64
[2019-01-18] MEDS: NIACIN 500 MG TABLET PO SCH ×2 (06:15→18:20)
[2019-01-18] MEDS: [UNRECOGNIZED DRUG - OTHER] PO SCH ×3 (06:16)
[2019-01-18] MEDS: WATER PO SCH ×3 (06:16)
[2019-01-18] MEDS: STERILE FOR IRRIGATION PO SCH ×3 (06:16)
[2019-01-18] MEDS: SODIUM BICARBONATE PO SCH ×3 (06:16)
[2019-01-18] MEDS: SCOPOLAMINE 1.5 MG (TRANSDERM-SCOP) PATCH TOP SCH (08:36)
[2019-01-18] MEDS: LIDOCAINE 4% (SALONPAS) PATCH TOP SCH (08:36)
[2019-01-18] MEDS: SILDENAFIL 20 MG (REVATIO) TAB NON-FORMULARY PO SCH ×3 (08:37→19:35)
[2019-01-18] MEDS: meTOprolol TARTRATE 25 MG (LOPRESSOR) TABLET PO SCH ×2 (08:37→19:35)
[2019-01-18] MEDS: FOLIC ACID 1 MG TAB PO SCH (08:37)
[2019-01-18] MEDS: MULTIVIT W/MINERALS TAB (THERAGRAN M) PO SCH (08:37)
[2019-01-18] MEDS: LACTOBACILLUS ACIDOPHILUS (PROBIOTIC) CAPSULE PO SCH ×2 (08:37→19:35)
[2019-01-18] MEDS: OMEGA 3 (FISH OIL) 1000 MG CAP PO SCH ×2 (08:37→19:36)
[2019-01-18] MEDS: THIAMINE 100 MG (VITAMIN B-1) TAB PO SCH ×2 (08:37→19:35)
[2019-01-18] MEDS: SCOPOLAMINE PATCH REMOVAL TP SCH (08:38)
[2019-01-18] MEDS: ASCORBIC ACID (VIT C) 500 MG TABLET PO SCH (08:38)
[2019-01-18] MEDS: HYDROcodone/APAP 7.5 MG/325 MG (LORTAB, LORCET PLUS) TABLET PO PRN ×2 (08:38→19:35)
[2019-01-18] MEDS: ONDANSETRON 4 MG/2 ML (SDV) Z0FRAN IVP PRN (08:58)
--- NOTE | 2019-01-18 09:22 | Pulmonary Progress Note ---
Subjective Time Seen by a Provider: 09:22 Subjective/Events-last exam Pt appears much improved. Sepsis Event Evaluation Height, Weight, BMI Height: 5'2.00" Weight: 118lbs. 0.0oz. 53.834176fo; 20.9 BMI Method:Actual Exam Exam Vital Signs Date Time Temp Pulse Resp B/P (MAP) Pulse Ox O2 Delivery O2 Flow Rate FiO2 01/18/19 08:10 Room Air 01/18/19 07:00 Room Air 01/18/19 05:50 97.6 78 16 110/64 (79) 98 Room Air 01/17/19 20:30 Trach Collar 6.00 01/17/19 16:05 98.3 90 16 104/60 (75) 97 Room Air 01/17/19 11:06 Room Air I & O 01/18/19 07:00 Intake Total 650 ml Balance 650 ml Height & Weight Height: 5'2.00" Weight: 118lbs. 0.0oz. 53.196981sz; 20.9 BMI Method:Actual General Appearance: No Apparent Distress, WD/WN, Chronically ill, Thin HEENT: PERRL/EOMI, Normal ENT Inspection, Pharynx Normal, Moist Mucous Membranes, Other (trach in place) Neck: Full Range of Motion, Normal Inspection, Non Tender, Supple Respiratory: Chest Non Tender, Lungs Clear, No Accessory Muscle Use, No Respiratory Distress, Decreased Breath Sounds Cardiovascular: Regular Rate, Rhythm, No Edema, No Gallop, No JVD, No Murmur Capillary Refill: Less Than 3 Seconds Gastrointestinal: normal bowel sounds, non tender, soft Extremity: Normal Capillary Refill, Normal Inspection, Normal Range of Motion, Non Tender, No Calf Tenderness, No Pedal Edema Neurologic/Psychiatric: Alert, Oriented x3, Normal Mood/Affect, surgery consultant II-XII Norm as Tested, Motor Weakness (3/5 all extremities) Skin: Normal Color, Warm/Dry Lymphatic: No Adenopathy Assessment/Plan Assessment/Plan Chronic respiratory failure s/p tracheostomy -SVNS -Monitor -No complications noted -Check CT of chest -Trach tube has been capped and pt is still doing well -Will D/C tracheostomy tube. Anemia with hx of GIB -Monitor ARJUN MEADE DO Jan 18, 2019 09:22
--- NOTE | 2019-01-18 09:47 | PM&R Progress Note ---
Subjective HPI/CC On Admission Date Seen by Provider: Jan 18, 2019 Time Seen by Provider: 09:15 Chief complaint: Critical illness myopathy HPI: This is a 78yoWF known to me from ICU 9 hospital stay after a massive GI bleed requiring surgery by Dr. Talamantes who was ultimately transferred to [place] on a ventilator, took three weeks to wean off, had trach placed peg tube for tube feedings and has resulted in severe weakness in need of inpatient rehab, she is doing very well, having a speaking valve on her trach and is not capped at this point because she is so fatigued. Dr. Ding is the fisher pot who is working with her and is not comfortable capping the trach right now. She is eating 25-50% of the meals, she is receiving nocturnal tube feedings to supplement and overall she has severe weakness and will ultimately return home with her to continue recovery after inpatient rehab works on her strength. Subjective/Events-last exam Upon further evaluation she did not have a fall and CT scan and she was not even near falling Discharge planned for 01/25/2019 since she continues to be Dina lift and fully dependent Cognition precludes any significant progress being made and that area of therapy Bowel movements are loose but improving since tube feedings have been discontinued [facility] will be chosen for skilled facility Holding stool softener Changing proton pump inhibitor to p.o. since it is no longer an issue with swallowing Remove trach today at 1050 and she is swallowing well and speech therapy already saw her Removing PEG tube tomorrow by Dr. Acuña We will discontinue fish oil since it is hard for her to swallow Checked med and labs Reviewed therapy notes Conferred with coat room attendant of Systems General: Fatigue Objective Exam Vital Signs Vital Signs Date Time Temp Pulse Resp B/P (MAP) Pulse Ox O2 Delivery O2 Flow Rate FiO2 01/18/19 08:10 Room Air 01/18/19 05:50 97.6 78 16 110/64 (79) 98 01/17/19 20:30 6.00 01/14/19 07:21 28 Capillary Refill : Less Than 3 Seconds General Appearance: No Apparent Distress, WD/WN, Chronically ill, Thin HEENT: PERRL/EOMI, Normal ENT Inspection, Pharynx Normal, Moist Mucous Membranes, Other (trach in place) Neck: Full Range of Motion, Normal Inspection, Non Tender, Supple Respiratory: Chest Non Tender, Lungs Clear, No Accessory Muscle Use, No Respiratory Distress, Decreased Breath Sounds Cardiovascular: Regular Rate, Rhythm, No Edema, No Gallop, No JVD, No Murmur Gastrointestinal: Normal Bowel Sounds, No Organomegaly, No Pulsatile Mass, Non Tender, Soft, Other (PEG in place) Back: Normal Inspection, No CVA Tenderness, No Vertebral Tenderness Extremity: Normal Capillary Refill, Normal Inspection, Normal Range of Motion, Non Tender, No Calf Tenderness, No Pedal Edema Neurologic/Psychiatric: Alert, Oriented x3, Normal Mood/Affect, medical diagnostic radiographer II-XII Norm as Tested, Motor Weakness (3/5 all extremities) Skin: Normal Color, Warm/Dry Lymphatic: No Adenopathy Results/Procedures Lab Patient resulted labs reviewed. FIM Transfers Therapy Code Descriptions/Definitions Functional [place] Measure: 0=Not Assessed/NA 4=Minimal Assistance 1=Total Assistance 5=Supervision or Setup 2=Maximal Assistance 6=Modified [place] 3=Moderate Assistance 7=Complete [place] Therapy Quality Codes: 6 Independent with activity with or without an assistive device 5 Patient requires set up or clean up by helper. Patient completes activity by themselves 4 Supervision or touching assist (CGA). [place] provide cues , steadying assist 3 The helper provides less than half the effort to complete the activity 2 The helper provides more than half the effort to complete the activity 1 Dependent. The helper does all the effort to complete an activity 7 Patient refused to complete or attempt activity 9 The patient did not perform the activity before the current illness or injury 88 Not attempted due to Medical conditions or safety concerns Transfers (B, C, W/C) (FIM): 1 Scootin Rollin Roll Left to Right (QC): 1 Supine to/from Sit: 1 Sit to/from Stand: 1 Sit to Lying (QC): 1 Sit to Stand (QC): 1 Chair/[id number]-[id number] Xfer(QC): 1 Bed to/from Chair: 1 Car Transfer (QC): 88 Gait Training Does the Patient Walk?: No and Walking Goal NOT indicated Gait (FIM): 0 (unable to stand at this time. ) Distance (FIM): 0=does not occure Walk 10 feet (QC): 88 Walk 50 ft with 2 Turns(QC): 88 Walk 150 ft (QC): 88 Walking 10ft/uneven surface-QC: 88 Wheelchair Training Does the Pt Use a Wheelchair?: Yes Wheelchair (FIM): 1 Wheelchair Distance: 1=up to 49 ft (15ftx3) Wheelchair Level of Assist: 3 Type of Wheelchair: Manual Stair Training Stairs (FIM): 0 1 Step (curb) (QC): 88 4 Steps (QC): 88 12 Steps (QC): 88 Balance Picking up an Object (QC): 88 Mental Status/Objective Comprehension: 7 Expression: 7 Social Interaction: 7 Problem Solvin Memory: 7 ADL-Treatment Feedin (requires set up secodanry to decrease FMC ) Eating (QC): 4 Groomin (washing face, brushing teeth, washing hands. pt required assist with positioning for performing task. required cuing to positioning and hand over hand assist ) Oral Hygiene (QC): 4 Bathin (required assist with buttock and fernando. pt education on use of LHS to increas independence. ) Bathing Location: L Arm, R Arm, L Upper Leg, R Upper Leg, L Lower Leg (including foot), R Lower Leg (including foot), Chest, Abdomen Shower/Bathe Self (QC): 4 Upper Extremity Dressin Upper Body Dressing (QC): 4 Lower Extremity Dressin (pants, Mukund socks. pt required TA for Mukund socks. pt education on use of dipper clock and watch hands to perform LB dressing. pt demo ability to thread Mukund LE but required TA for pull up pants ) Lower Body Dressing (QC): 1 On/Off Footwear (QC): 1 Toiletin Toileting Hygiene (QC): 1 Toilet/Commode Transfer: 1 Toilet Transfer (QC): 1 (SB X 2 person assist ) Shower: 1 (SB X 2 person assist ) Assessment/Plan Assessment and Plan Assess & Plan/Chief Complaint Assessment: Myopathy (1) s/p Ventilator dependence Status: Acute (2) s/p Respiratory failure Status: Acute (3) Anemia due to acute blood loss Status: Acute (4) GERD (gastroesophageal reflux disease) Status: Chronic (5) Dementia Status: Chronic (6) s/p Acute GI bleeding Status: Acute (7) Weakness Status: Acute (8) s/p Transfusion of blood during current hospitalization Status: Acute (9) h/o Pyloric ulcer Status: Acute (10) Trach in place (11) PEG in place with TF at night now discontinued and eating 100 percent oral Plan: Monitor closely TF DC and now eating 100% so DC PEG tomorrow per Dr Acuña Continue all meds as ordered Reviewed labs Appreciate Dr Lozada and now we discontinued trach Full code at 's request Unsure of the recoverability of this patient may ultimately need NHP Patient slow to improve but appears to be motivated Check labs prn NHP at DC 01/25/19 (1) Myopathy (2) GERD (gastroesophageal reflux disease) (3) Ventilator dependence (4) Hyperkalemia (5) Dementia (6) Pyloric ulcer (7) Tracheostomy in place (8) Transfusion history BO SUÁREZ DO Jan 18, 2019 09:47
--- NOTE | 2019-01-18 10:14 | Physical Therapy Daily Note ---
PT Daily Note-Current Subjective Pt. in bed states she has had some nausea today, Also states she is needing changed referring to her brief. Pt. agrees to Rx Pain Numeric Pain Scale: 4 Location: Medial Location Body Site: Back Pain Description: Ache Mental Status Patient Orientation: Person Attachments: PEG Tube, Other-See Comments (trach) Transfers Therapy Code Descriptions/Definitions Functional [place] Measure: 0=Not Assessed/NA 4=Minimal Assistance 1=Total Assistance 5=Supervision or Setup 2=Maximal Assistance 6=Modified [place] 3=Moderate Assistance 7=Complete [place] Therapy Quality Codes: 6 Independent with activity with or without an assistive device 5 Patient requires set up or clean up by helper. Patient completes activity by themselves 4 Supervision or touching assist (CGA). [place] provide cues , steadying assist 3 The helper provides less than half the effort to complete the activity 2 The helper provides more than half the effort to complete the activity 1 Dependent. The helper does all the effort to complete an activity 7 Patient refused to complete or attempt activity 9 The patient did not perform the activity before the current illness or injury 88 Not attempted due to Medical conditions or safety concerns Transfers (B, C, W/C) (FIM): 1 Scootin Rollin Supine to/from Sit: 3 Bed to/from Chair: 1 Weight Bearing Right Lower Extremity: Right Full Weight Bearing Left Lower Extremity: Left Full Weight Bearing Gait Training Does the Patient Walk?: No and Walking Goal NOT indicated Wheelchair Training Does the Pt Use a Wheelchair?: Yes Wheelchair (FIM): 2 Wheelchair Distance: 6=155-01 ft (50,40) Wheelchair Level of Assist: 3 Type of Wheelchair: Manual needs assist for all braking, needs time piece repairer assist for instruction. pt. with bilat feet on the ground today did utilize LEs as well as hands on wheels to propel and guide wch. Pt. is very slow and needs skilled instruction as well as repeated guidance. this however may be a mode of exercise and likely her mode of mobility in future Exercises Supine Ex: Ankle pumps (HC stretches 4 x 20 s), Quad Set, Rolling (ssist), Glut sets, Heel Slides (assist right), Short Arc Quads (assist), Scooting (assist), Straight leg raise (ssist right), Hip abd/add (assist) Supine Reps: 15 Treatments pt. dependent and frail, utilizes radha for safest most realistic mode of TRF as pt. remains totally dependent Assessment Current Status: Fair Progress dependent for all mobility PT Short Term Goals Short Term Goals Time Frame: Jan 19, 2019 Transfers (B,C,W/C) (FIM): 3 Gait (FIM): 2 Distance (FIM): 0=201-41 ft Gait Assistive Device: FWW PT Bibliographic Services Specialist Goals Bibliographic Services Specialist Goals PT Chcf Goals Time Frame: Feb 02, 2019 Transfers (B,C,W/C) (FIM): 6 Sit to Lying (QC): 6 Lying-Sitting on Side/Bed(QC): 6 Sit to Stand (QC): 6 Rollin Roll Left to Right (QC): 6 Chair/[id number]-[id number] Xfer(QC): 6 Car Transfer (QC): 5 Does the Patient Walk: No and Walking Goal IS indicated Gait (FIM): 5 Gait distance (FIM): 7=926-74 ft Walk 10 feet (QC): 5 Walk 10ft-Uneven Surface(QC): 5 Walk 50ft with 2 Turns (QC): 5 Walk 150 ft (QC): 4 Gait Assistive Device: FWW Does the Pt use WC or Scooter?: No Stairs (FIM): 2 # of Steps: 4 1 Step (curb) (QC): 5 4 Steps (QC): 4 12 Steps (QC): 88 Picking up an Object (QC): 88 PT Plan Treatment/Plan Treatment Plan: Continue Plan of Care Treatment Plan: Bed Mobility, Education, Functional Activity Ralph, Functional Strength, Group Therapy, Gait, Safety, Therapeutic Exercise, Transfers Treatment Duration: Feb 02, 2019 Frequency: At least 5 of 7 days/Wk (IRF) Estimated Hrs Per Day: 1.5 hours per day Patient and/or Family Agrees t: Yes Safety Risks/Education Patient Education: Transfer Techniques (rolling ), Correct Positioning, Disease Process, Safety Issues Teaching Recipient: Patient Teaching Methods: Demonstration, Discussion Response to Teaching: Verbalize Understanding, Return Demonstration, Reinforcement Needed Time/GCodes Time In: 900 Time Out: 1000 Total Billed Treatment Time: 60 Total Billed Treatment 1,EX20m,FA30m,wch10m co Rx with OT G Codes Necessary: No GARTH MALIN COPING MACHINE OPERATOR Jan 18, 2019 10:14
--- NOTE | 2019-01-18 10:31 | Occupational Ther Daily Note ---
OT Current Status-Daily Note Mental Status/Objective Therapy Code Descriptions/Definitions Functional [place] Measure: 0=Not Assessed/NA 4=Minimal Assistance 1=Total Assistance 5=Supervision or Setup 2=Maximal Assistance 6=Modified [place] 3=Moderate Assistance 7=Complete [place] ADL-Treatment Therapy Code Descriptions/Definitions Functional [place] Measure: 0=Not Assessed/NA 4=Minimal Assistance 1=Total Assistance 5=Supervision or Setup 2=Maximal Assistance 6=Modified [place] 3=Moderate Assistance 7=Complete [place] Therapy Quality Codes: 6 Independent with activity with or without an assistive device 5 Patient requires set up or clean up by helper. Patient completes activity by themselves 4 Supervision or touching assist (CGA). [place] provide cues , steadying assist 3 The helper provides less than half the effort to complete the activity 2 The helper provides more than half the effort to complete the activity 1 Dependent. The helper does all the effort to complete an activity 7 Patient refused to complete or attempt activity 9 The patient did not perform the activity before the current illness or injury 88 Not attempted due to Medical conditions or safety concerns Transfers (B, C, W/C) (FIM): 2 Other Treatment PT/OT co-treat completed for 30 minutes due to complexity of pt deficits requiring skills of both disciplines for TX session and safety of pt due to lack of strength/ coordination and activity tolerance at this time that could not be fulfilled by a vein access technician. during co-treatment OT focus on UE sequencing/ positioning while OT focus on LE positioning and gross movement. pt perform bed mobility with HOB elevated to approx 60 degrees with MOD A from therapist. and transfers from bed to chair with MAX A. once in chair pt demo ability to self propelled w/c with MOD VC from OT for sequencing while PT focused on gross movement. OT individual treatment: 45 minutes: pt transported to TX gym and perform ROM ring flexion ayush shoulders for approx 110 degrees. pt moved 14 rings from R<> L X 2 to increase UE ROM and activity tolerance, pt then given peg board to increase FMC for task. noted increase car stereo installer strength this date. pt placed 20 pegs with R hand then 20 pegs with left hand. pt then perform UBE [id number] with no resistance. pt then transported to room and transfers to recliner chair stand pivot transfer with MAX A. pt expressed concerns about going home stating she does think she is ready to go home. pt education on rehab goals and personal goals. pt stated she think she might have to go to a fci but wants to sty in rehab another week since she has been approving. SW notified of pt request. Education OT Patient Education: Correct positioning, Energy conservation, Progress toward Goal/Update tx plan, Purpose of tx/functional activities, Reviewed precautions, Rehab process, Safety issues, Transfer techniques, Use of adapted equipment Teaching Recipient: Patient Teaching Methods: Demonstration, Discussion Response to Teaching: Verbalize Understanding, Return Demonstration OT Short Term Goals Short Term Goals Eating(FIM): 3 Grooming(FIM): 3 Bathing(FIM): 3 Upper Body Dressing(FIM): 3 Lower Body Dressing(FIM): 3 Toileting(FIM): 3 Transfers (B,C,W/C) (FIM): 3 Toilet/Commode Transfer(FIM): 3 Shower Transfer(FIM): 3 1=Demonstrate adherence to instructed precautions during ADL tasks. 2=Patient will verbalize/demonstrate understanding of assistive devices/modifica tions for ADL. 3=Patient will improve strength/tolerance for activity to enable patient to perform ADL's. OT Lift Driver Goals Lift Driver Goals Time Frame: Feb 07, 2019 Eating (FIM): 6 Eating (QC): 6 Groomin Oral Hygiene (QC): 6 Bathing(FIM): 5 Bathing Location: L Arm, R Arm, L Upper Leg, R Upper Leg, L Lower Leg (including foot), R Lower Leg (including foot), Chest, Abdomen, Buttocks, Perineal Area Shower/Bathe Self (QC): 5 Upper Body Dressing(FIM): 5 Upper Body Dressing (QC): 5 Lower Body Dressing(FIM): 5 Lower Body Dressing (QC): 5 On/Off Footwear (QC): 5 Toileting(FIM): 5 Toileting Hygiene (QC): 5 Transfers (B,C,W/C) (FIM): 5 Toilet/Commode Transfer(FIM): 5 Toilet/Commode Transfer (QC): 5 Shower Transfer(FIM): 5 Additional Goals: 1-Demonstrate ADL Tasks, 2-Verbalize Understanding, 3-ImproveStrength/Ralph 1=Demonstrate adherence to instructed precautions during ADL tasks. 2=Patient will verbalize/demonstrate understanding of assistive devices/modifications for ADL. 3=Patient will improve strength/tolerance for activity to enable patient to perform ADL's. OT Education/Plan Problem List/Assessment Assessment: Decreased Activ Tolerance, Decreased Safety Aware, Decreased UE Strength, Dependent Transfers, Impaired Bed Mobility, Impaired Coordination, Impaired Funct Balance, Impaired I ADL's, Impaired Self-Care Skills pt presents with functional limitations affecting areas of ADLs and functional transfers with the above mention. pt would benefit from skilled OT services to address above mention deficits and to increase independence with ADLs and functional transfers. pt is making progress each day while in therapy. Discharge Recommendations Plan/Recommendations: Continue POC Barriers to Progress self limiting fear, incontinence Treatment Plan/Plan of Care Treatment,Training & Education: Yes Patient would benefit from OT for education, treatment and training to promote independence in ADL's, mobility, safety and/or upper extremity function for ADL's. Plan of Care: ADL Retraining, Caregiver Training, Cognitive Retraining, Concurrent Therapy, Functional Mobility, Group Exercise/Act as Ind, UE Funct Exercise/Act Treatment Duration: Feb 09, 2019 Frequency: At least 5 of 7 days/Wk (IRF) Estimated Hrs Per Day: 1 hour per day (60-90 minutes per day ) Agreement: Yes Rehab Potential: Fair Time/GCodes Start Time: 09:30 Stop Time: 10:45 Billed Treatment Time 75 minutes, FA, 5 units ANGELY CHOUDHURY OT Jan 18, 2019 10:31
--- NOTE | 2019-01-18 10:50 | NUR ---
With permission from Dr. Lozada, this RN removed pt's trach. No sutures were in place and pt's stoma was cleaned and covered with gauze. Pt was educated how to talk by covering the stoma until it heals. Pt demonstrated this and was able to speak with her voice being heard. This RN also asked speech to perform another swallow eval to ensure pt eating was safe with the trach removed.
--- NOTE | 2019-01-18 12:48 | ST Dysphagia Evaluation ---
Speech Evaluation-General Medical Diagnosis critical illness myopathy Onset Date: Jan 05, 2019 Therapy Diagnosis Therapy Diagnosis: Oropharyngeal Dysphagia Precautions Precautions: Aspiration Precautions/Isolations: Fall Prevention, Standard Precautions Referral Referring Physician: Dr. Mcdonald Medical History Pertinent Medical History: Atrial Fib, DM, Dementia, GERD Reviewed History: Yes Social History Current Living Status: Spouse Speech PLF/Current-Dysphagia Prior Level of Function Patient has been on a mechanical soft diet with thin liquids since her arrival at the ARU due to complex medical status with trach placement. Patient also has a PEG tube which is no longer used for nutritional or medication intake. Subjective The patient was cooperative with the follow up dysphagia evaluation. Cognitive Status Patient Orientation: Person, Place, Time, Situation Oral Motor Skills Dentition: Natural Current Food Consistancy: Mechanical Soft, Thin Liquids Ability to Follow Directions: Good Oral Expression Ability: No Impairment Voice Voice Loudness: Mildly Soft/Quiet Face Facial Symmetry: Symmetrical Oral-Facial Assessment Oral-Facial Dentition: Normal Labial Seal Description: Normal Smile: Normal Lingual Protrusion: Normal Lingual ROM: Normal Lingual Strength: Normal Pharynx Velopharyngeal Move.: Normal Volitional Dry Swallow: Yes Dysphagia Evaluation Consistencies Presented: Regular, Thin Liquid, Mechanical Soft Oral phase is within normal limits. Pharyngeal phase is within normal limits. Dietary Recommendations: Regular Liquid Recommendations: Thin Swallowing Precautions: Alternate Liquids/Solids, Decreased Rate of Oral Intake, Liquids from Straw, Small Bites and Sips, Sitting Upright 90 Degrees, Sitting 90 Degrees 30 Post Intake Dysphagia Evaluation Summary The patient is a pleasant 78 year old female who was admitted to the ARU for strengthening and medical monitoring for a safe return home. Initially the patient was on mechanical soft diet level with thin due to trach. The patient's trach was removed today with a follow up BDE for least restrictive diet level determination. The patient will be placed on a regular diet which was relayed to her nurse, Talita. Her medications will also be presented whole. Her oral intake has significantly improved without needs being met via PEG. Patient will continue to receive skilled dysphagia therapy to insure she is meeting her hydration/nutrition needs. Barriers to Learning The patient has had a complex medical status for a few months. Speech Short Term Goals Short Term Goals Short Term Goals 1) The patient will tolerate the least restrictive diet level without s/s of aspiration at 90% with minimal verbal cues. 2) The patient will utilize compensatory strategies as trained for safe oral intake at 90% or greater with minimal verbal cues. Speech [facility] Goals Heel Seat Laster Goals The patient will maintain adequate nutrition/hydration via safe effective swallow function with PEG tube as needed. Speech-Plan Patient/Family Goals Patient/Family Goals: The patient plans on returning home with her post rehab. Treatment Plan Speech Therapy Treatment Plan: Continue Plan of Care Patient's level of intake is regular with thin. Treatment Duration: Jan 25, 2019 Frequency: 5 times per week Estimated Hrs Per Day: .5 hour per day Rehab Potential: Fair Barriers to Learning: The patient has a complex medical status. Pt/Family Agrees to Plan: Yes Safety Risks/Education Teaching Recipient: Patient Teaching Methods: Discussion Response to Teaching: Verbalize Understanding Education Topics Provided: Safety of oral intake strategies with regular diet level. Time Speech Therapy Time In: 11:30 Speech Therapy Time Out: 12:00 Total Billed Time: 30 Billed Treatment Time 1 SHIRLENE Isaacs Jan 18, 2019 12:47
--- NOTE | 2019-01-18 13:00 | Physical Therapy Daily Note ---
PT Daily Note-Current Subjective Pt. up in recliner and agrees to Rx. Pt. states she is happy about her trach being out after all. States she is speaking and eating a little bit Pain Location: No Pain Reported Transfers Therapy Code Descriptions/Definitions Functional [place] Measure: 0=Not Assessed/NA 4=Minimal Assistance 1=Total Assistance 5=Supervision or Setup 2=Maximal Assistance 6=Modified [place] 3=Moderate Assistance 7=Complete [place] Therapy Quality Codes: 6 Independent with activity with or without an assistive device 5 Patient requires set up or clean up by helper. Patient completes activity by themselves 4 Supervision or touching assist (CGA). [place] provide cues , steadying assist 3 The helper provides less than half the effort to complete the activity 2 The helper provides more than half the effort to complete the activity 1 Dependent. The helper does all the effort to complete an activity 7 Patient refused to complete or attempt activity 9 The patient did not perform the activity before the current illness or injury 88 Not attempted due to Medical conditions or safety concerns Weight Bearing Right Lower Extremity: Right Full Weight Bearing Left Lower Extremity: Left Full Weight Bearing Exercises Supine Ex: Ankle pumps, Quad Set, Glut sets, Heel Slides, Scooting (up in reclined recliner with assist), Hip abd/add Supine Reps: 15 Seated Therapy Exercises: Long arc quads, Hip flexion Seated Reps: 15 Assessment Current Status: Fair Progress PT Short Term Goals Short Term Goals Time Frame: Jan 19, 2019 Transfers (B,C,W/C) (FIM): 3 Gait (FIM): 2 Distance (FIM): 6=193-03 ft Gait Assistive Device: FWW PT Penitentiary Goals Penitentiary Goals PT Ammonia Refrigeration Technician Goals Time Frame: Feb 02, 2019 Transfers (B,C,W/C) (FIM): 6 Sit to Lying (QC): 6 Lying-Sitting on Side/Bed(QC): 6 Sit to Stand (QC): 6 Rollin Roll Left to Right (QC): 6 Chair/Hkc-xx-Vwkfa Xfer(QC): 6 Car Transfer (QC): 5 Does the Patient Walk: No and Walking Goal IS indicated Gait (FIM): 5 Gait distance (FIM): 3=445-31 ft Walk 10 feet (QC): 5 Walk 10ft-Uneven Surface(QC): 5 Walk 50ft with 2 Turns (QC): 5 Walk 150 ft (QC): 4 Gait Assistive Device: FWW Does the Pt use WC or Scooter?: No Stairs (FIM): 2 # of Steps: 4 1 Step (curb) (QC): 5 4 Steps (QC): 4 12 Steps (QC): 88 Picking up an Object (QC): 88 PT Plan Treatment/Plan Treatment Plan: Continue Plan of Care Treatment Plan: Bed Mobility, Education, Functional Activity Ralph, Functional Strength, Group Therapy, Gait, Safety, Therapeutic Exercise, Transfers Treatment Duration: Feb 02, 2019 Frequency: At least 5 of 7 days/Wk (IRF) Estimated Hrs Per Day: 1.5 hours per day Patient and/or Family Agrees t: Yes Safety Risks/Education Patient Education: Correct Positioning Time/GCodes Time In: 1345 Time Out: 1400 Total Billed Treatment Time: 15 Total Billed Treatment 1,EX15m G Codes Necessary: No GARTH MALIN PERSHING MISSILE CREWMEMBER Jan 18, 2019 13:00
[2019-01-18] MEDS: ROFLUMILAST 500 MCG TAB (DALIRESP) PO SCH (13:14)
--- NOTE | 2019-01-18 14:51 | NUR ---
HEAD OF HOUSEKEEPING met with patient to review team conference summary. As patient continues to be dependent with PT activities and has not made significant gains with OT, team has recommended patient proceed with SNF placement as spouse has indicated the need for patient to be able to transfer and ambulate with walker assistance before returning home. Spouse previously informed HEAD OF HOUSEKEEPING that patient completed a three-week stay at [facility] and would request referral be sent when necessary. OT is hopeful to improve some activities within the next several days; therefore team has recommended patient proceed with discharge on 710. HEAD OF HOUSEKEEPING sent referral to [facility] and awaiting response.
[2019-01-18 17:41] VITALS: BP 124/71
[2019-01-18] MEDS: ENOXAPARIN 40 MG/0.4 ML (LOVENOX) SYR SC SCH (18:20)
[2019-01-18] MEDS: LIDOCAINE PATCH REMOVAL TP SCH (19:36)
[2019-01-19] MEDS: SUCRALFATE 1 GM (CARAFATE) TAB PO SCH ×4 (00:10→17:21)
[2019-01-19 05:11] VITALS: BP 117/56
[2019-01-19] MEDS: WATER PO SCH ×3 (06:07)
[2019-01-19] MEDS: STERILE FOR IRRIGATION PO SCH ×3 (06:07)
[2019-01-19] MEDS: [UNRECOGNIZED DRUG - OTHER] PO SCH ×3 (06:07)
[2019-01-19] MEDS: SODIUM BICARBONATE PO SCH ×3 (06:07)
[2019-01-19] MEDS: NIACIN 500 MG TABLET PO SCH ×2 (06:08→16:16)
[2019-01-19 08:30] VITALS: BP 130/71
[2019-01-19] MEDS: meTOprolol TARTRATE 25 MG (LOPRESSOR) TABLET PO SCH ×2 (08:31→20:40)
[2019-01-19] MEDS: FOLIC ACID 1 MG TAB PO SCH (08:31)
[2019-01-19] MEDS: LACTOBACILLUS ACIDOPHILUS (PROBIOTIC) CAPSULE PO SCH ×2 (08:31→20:40)
[2019-01-19] MEDS: ASCORBIC ACID (VIT C) 500 MG TABLET PO SCH (08:31)
[2019-01-19] MEDS: THIAMINE 100 MG (VITAMIN B-1) TAB PO SCH ×2 (08:33→20:39)
[2019-01-19] MEDS: HYDROcodone/APAP 7.5 MG/325 MG (LORTAB, LORCET PLUS) TABLET PO PRN ×3 (08:33→20:40)
[2019-01-19] MEDS: SILDENAFIL 20 MG (REVATIO) TAB NON-FORMULARY PO SCH ×3 (08:34→20:40)
[2019-01-19] MEDS: LIDOCAINE 4% (SALONPAS) PATCH TOP SCH (08:35)
[2019-01-19] MEDS: OMEGA 3 (FISH OIL) 1000 MG CAP PO SCH (08:36)
[2019-01-19] MEDS: MULTIVIT W/MINERALS TAB (THERAGRAN M) PO SCH (08:41)
[2019-01-19] MEDS: ONDANSETRON 4 MG/2 ML (SDV) Z0FRAN IVP PRN (08:43)
--- NOTE | 2019-01-19 08:50 | NUR ---
IV Zofran given for C/O nausea. See eMAR for details.
--- NOTE | 2019-01-19 10:21 | Occupational Ther Daily Note ---
OT Current Status-Daily Note Subjective pt laying in bed upon OT/ PT arrival. pt reports no pain at this time. pt agreed to TX session with focus on increase seated balance, functional mobility, and overall activity tolerance. Mental Status/Objective Therapy Code Descriptions/Definitions Functional [place] Measure: 0=Not Assessed/NA 4=Minimal Assistance 1=Total Assistance 5=Supervision or Setup 2=Maximal Assistance 6=Modified [place] 3=Moderate Assistance 7=Complete [place] Attachments: PEG Tube ADL-Treatment Therapy Code Descriptions/Definitions Functional [place] Measure: 0=Not Assessed/NA 4=Minimal Assistance 1=Total Assistance 5=Supervision or Setup 2=Maximal Assistance 6=Modified [place] 3=Moderate Assistance 7=Complete [place] Therapy Quality Codes: 6 Independent with activity with or without an assistive device 5 Patient requires set up or clean up by helper. Patient completes activity by themselves 4 Supervision or touching assist (CGA). [place] provide cues , steadying assist 3 The helper provides less than half the effort to complete the activity 2 The helper provides more than half the effort to complete the activity 1 Dependent. The helper does all the effort to complete an activity 7 Patient refused to complete or attempt activity 9 The patient did not perform the activity before the current illness or injury 88 Not attempted due to Medical conditions or safety concerns Grooming (FIM): 5 (seated in chair to comb hair. ) Upper Body (FIM): 5 (setup of shirt and VC to pull down in back. pt required ad ditional timing to complete task. ) Transfers (B, C, W/C) (FIM): 2 Other Treatment pt perform bed mobility with assist for truck and HOB elevated to 60 degrees. pt demo ability to advance ayush. LE toward EOB with skilled cuing. pt stand pivot transfer to chair with MAX A. pt self propelled w/c with cuing from OT for sequencing while OT focus on gross movement an distance. pt then transfer onto mat table. and perform lateral lean/ anterior/ posterior leaning with skilled cuing from safety and positioning by PT while OT focus on proper hand placement and sequencing. pt education on forward leans in prep for standing with "nose over toes" noted pt has fear of falling. pt increase participate with this task this date and noted less fair this date. pt perform 10X1 of all skilled leaning. pt required rest breaks secondary to activity tolerance. pt then transported back to room seated in recliner chair, call light within reach, all needs met. PT/OT co-treat completed due to complexity of pt deficits requiring skills of both disciplines for TX session and safety of pt due to lack of strength/ service coordinator elderly facility rdination and activity tolerance at this time that could not be fulfilled by a rehabilitation caseworker. PT focus on LE positioning, gross movement, while OT focus on UE placement/ sequencing. Education OT Patient Education: Correct positioning, Energy conservation, Progress toward Goal/Update tx plan, Purpose of tx/functional activities, Reviewed precautions, Rehab process, Safety issues, Transfer techniques Teaching Recipient: Patient Teaching Methods: Demonstration, Discussion OT Short Term Goals Short Term Goals Eating(FIM): 3 Grooming(FIM): 3 Bathing(FIM): 3 Upper Body Dressing(FIM): 3 Lower Body Dressing(FIM): 3 Toileting(FIM): 3 Transfers (B,C,W/C) (FIM): 3 Toilet/Commode Transfer(FIM): 3 Shower Transfer(FIM): 3 1=Demonstrate adherence to instructed precautions during ADL tasks. 2=Patient will verbalize/demonstrate understanding of assistive d evices/modifications for ADL. 3=Patient will improve strength/tolerance for activity to enable patient to perform ADL's. OT Skilled Nursing Goals Skilled Nursing Goals Time Frame: Feb 07, 2019 Eating (FIM): 6 Eating (QC): 6 Groomin Oral Hygiene (QC): 6 Bathing(FIM): 5 Bathing Location: L Arm, R Arm, L Upper Leg, R Upper Leg, L Lower Leg (in cluding foot), R Lower Leg (including foot), Chest, Abdomen, Buttocks, Perineal Area Shower/Bathe Self (QC): 5 Upper Body Dressing(FIM): 5 Upper Body Dressing (QC): 5 Lower Body Dressing(FIM): 5 Lower Body Dressing (QC): 5 On/Off Footwear (QC): 5 Toileting(FIM): 5 Toileting Hygiene (QC): 5 Transfers (B,C,W/C) (FIM): 5 Toilet/Commode Transfer(FIM): 5 Toilet/Commode Transfer (QC): 5 Shower Transfer(FIM): 5 Additional Goals: 1-Demonstrate ADL Tasks, 2-Verbalize Understanding, 3-Im proveStrength/Ralph 1=Demonstrate adherence to instructed precautions during ADL tasks. 2=Patient will verbalize/demonstrate understanding of assistive devices/modifications for ADL. 3=Patient will improve strength/tolerance for activity to enable patient to perform ADL's. OT Education/Plan Problem List/Assessment Assessment: Decreased Activ Tolerance, Decreased Safety Aware, Decreased UE Strength, Dependent Transfers, Impaired Bed Mobility, Impaired Coordination, Impaired Funct Balance, Impaired I ADL's, Impaired Self-Care Skills pt presents with functional limitations affecting areas of ADLs and functional transfers with the above mention. pt would benefit from skilled OT services to address above mention deficits and to increase independence with ADLs and functional transfers. pt is making progress each day while in therapy. pt increase UE dressing to SBA and Grooming to SBA this date. Discharge Recommendations Plan/Recommendations: Continue POC Barriers to Progress incontinence, ENTERPRISE Patient/Family Goals "to get stronger" Treatment Plan/Plan of Care Treatment,Training & Education: Yes Patient would benefit from OT for education, treatment and training to promote independence in ADL's, mobility, safety and/or upper extremity function for ADL's. Plan of Care: ADL Retraining, Caregiver Training, Cognitive Retraining, Concurrent Therapy, Functional Mobility, Group Exercise/Act as Ind, UE Funct Exercise/Act, W/C Management Training Treatment Duration: Feb 09, 2019 Frequency: At least 5 of 7 days/Wk (IRF) Estimated Hrs Per Day: 1 hour per day (60-90 minutes per day ) Agreement: Yes Rehab Potential: Fair Time/GCodes Start Time: 09:00 Stop Time: 10:00 Billed Treatment Time ADL 15 minutes, 1 unit FA 45 minutes, 3 units Co-treatment with PT (60 minutes) ANGELY CHOUDHURY OT Jan 19, 2019 10:21
[2019-01-19] MEDS: PANTOPRAZOLE 40 MG (PROTONIX) TAB PO SCH (10:50)
--- NOTE | 2019-01-19 10:52 | NUR ---
Per Dr. Mcdonald, DC Fish oil and change Protonix from liquid to pill.
--- NOTE | 2019-01-19 11:13 | Physical Therapy Daily Note ---
PT Daily Note-Current Subjective Pt laying in bed upon OT/ PT arrival. Pt reports no pain at this time. Pt agreed to TX session with focus on increase seated balance, functional mobility, and overall activity tolerance. Pain Location: No Pain Reported Mental Status Patient Orientation: Person, Place Attachments: PEG Tube Trach. removed yesterday after tx. Transfers Therapy Code Descriptions/Definitions Functional [place] Measure: 0=Not Assessed/NA 4=Minimal Assistance 1=Total Assistance 5=Supervision or Setup 2=Maximal Assistance 6=Modified [place] 3=Moderate Assistance 7=Complete [place] Therapy Quality Codes: 6 Independent with activity with or without an assistive device 5 Patient requires set up or clean up by helper. Patient completes activity by themselves 4 Supervision or touching assist (CGA). [place] provide cues , steadying assist 3 The helper provides less than half the effort to complete the activity 2 The helper provides more than half the effort to complete the activity 1 Dependent. The helper does all the effort to complete an activity 7 Patient refused to complete or attempt activity 9 The patient did not perform the activity before the current illness or injury 88 Not attempted due to Medical conditions or safety concerns Scootin Rollin Supine to/from Sit: 2 Sit to/from Stand: 2 Sit to Stand (QC): 2 Chair/Mwa-pc-Mtwqv Xfer(QC): 2 Bed to/from Chair: 2 Weight Bearing Right Lower Extremity: Right Full Weight Bearing Left Lower Extremity: Left Full Weight Bearing Wheelchair Training Does the Pt Use a Wheelchair?: Yes Wheelchair (FIM): 2 Wheelchair Distance: 3=957-12 ft Distance: 50' Wheelchair Level of Assist: 4 Wheel 50 ft with 2 turns (QC): 4 Type of Wheelchair: Manual Treatments Pt perform bed mobility with assist for truck and HOB elevated to 60 degrees. Pt demo ability to advance B LE toward EOB with skilled cuing. Pt stand pivot transfer to chair with MAX A. Pt self propelled w/c with cuing from OT for sequencing while OT focus on gross movement an distance. Pt then transfer onto mat table and perform lateral lean/ anterior/ posterior leaning with skilled cuing from safety and positioning by PT while OT focus on proper hand placement and sequencing. Pt education on forward leans in prep for standing with "nose over toes" noted pt has fear of falling. Pt increase participate with this task this date and noted less fair this date. Pt perform 10X1 of all skilled leaning. Pt required rest breaks secondary to activity tolerance. Pt then transported back to room seated in recliner chair, call light within reach, all needs met. PT/OT co-treat completed due to complexity of pt deficits requiring skills of both disciplines for TX session and safety of pt due to lack of strength/ coordination and activity tolerance at this time that could not be fulfilled by a occupational rehabilitation aide. PT focus on LE positioning, gross movement, while OT focus on UE placement/ sequencing. Assessment Current Status: Good Progress Pt presents with functional limitations affecting areas of ADLs and functional transfers with the above mention. Pt would benefit from skilled OT & PT services to address above mention deficits and to increase independence with ADLs and functional transfers. Pt is making progress each day while in therapy. Pt increase UE dressing to SBA and Grooming to SBA this date as well as sitting dynamic balance. PT Short Term Goals Short Term Goals Time Frame: Jan 19, 2019 Transfers (B,C,W/C) (FIM): 3 Gait (FIM): 2 Distance (FIM): 1=781-00 ft Gait Assistive Device: FWW PT Group Home Goals Group Home Goals PT Purchasing Contracting Clerk Goals Time Frame: Feb 02, 2019 Transfers (B,C,W/C) (FIM): 6 Sit to Lying (QC): 6 Lying-Sitting on Side/Bed(QC): 6 Sit to Stand (QC): 6 Rollin Roll Left to Right (QC): 6 Chair/Xuo-ri-Zapwk Xfer(QC): 6 Car Transfer (QC): 5 Does the Patient Walk: No and Walking Goal IS indicated Gait (FIM): 5 Gait distance (FIM): 3=305-90 ft Walk 10 feet (QC): 5 Walk 10ft-Uneven Surface(QC): 5 Walk 50ft with 2 Turns (QC): 5 Walk 150 ft (QC): 4 Gait Assistive Device: FWW Does the Pt use WC or Scooter?: No Stairs (FIM): 2 # of Steps: 4 1 Step (curb) (QC): 5 4 Steps (QC): 4 12 Steps (QC): 88 Picking up an Object (QC): 88 PT Plan Problem List Problem List: Activity Tolerance, Functional Strength, Safety, Balance, Transfer, Bed Mobility Treatment/Plan Treatment Plan: Continue Plan of Care Treatment Plan: Bed Mobility, Education, Functional Activity Ralph, Functional Strength, Group Therapy, Gait, Safety, Therapeutic Exercise, Transfers Treatment Duration: Feb 02, 2019 Frequency: At least 5 of 7 days/Wk (IRF) Estimated Hrs Per Day: 1.5 hours per day Patient and/or Family Agrees t: Yes Safety Risks/Education Patient Education: Transfer Techniques, Correct Positioning, W/C Management, Safety Issues Teaching Recipient: Patient Teaching Methods: Discussion Response to Teaching: Verbalize Understanding Time/GCodes Time In: 900 Time Out: 1000 Total Billed Treatment Time: 60 Total Billed Treatment 1, FA x3 (45m) & WCH (15m) Co-treat w/OT 60m G Codes Necessary: PIERRE Arboleda PTA Jan 19, 2019 11:13
--- NOTE | 2019-01-19 11:34 | Speech Therapy Daily Note ---
Speech Daily Progress Note Subjective Date Seen by Provider: Jan 19, 2019 Time Seen by Provider: 00:30 The patient was waiting on her lunch when I entered her room. Objective The patient completed compensatory strategies at 90% with minimal verbal cues. Assessment Assessment Current Status: Good Progress Communication Comprehension: 7 Expression: 7 Social Cognition Social Interaction: 7 Problem Solvin Memory: 7 Speech Short Term Goals Short Term Goals Short Term Goals 1) The patient will tolerate the least restrictive diet level without s/s of aspiration at 90% with minimal verbal cues. 2) The patient will utilize compensatory strategies as trained for safe oral intake at 90% or greater with minimal verbal cues. Speech Shelter Goals Shelter Goals The patient will maintain adequate nutrition/hydration via safe effective swallow function with PEG tube as needed. Speech-Plan Patient/Family Goals Patient/Family Goals: The patient is tentatively scheduled to be discharged on the . Treatment Plan Speech Therapy Treatment Plan: Continue Plan of Care The patient is progressing well with the regular diet upgrade. Treatment Duration: Jan 25, 2019 Frequency: 5 times per week Estimated Hrs Per Day: .5 hour per day Rehab Potential: Fair Barriers to Learning: The patient is medically complex. Pt/Family Agrees to Plan: Yes Safety Risks/Education Teaching Recipient: Patient Teaching Methods: Discussion Response to Teaching: Verbalize Understanding Education Topics Provided: The patient is educated for safe oral intake of regular diet level. Time Speech Therapy Time In: 11:00 Speech Therapy Time Out: 11:30 Total Billed Time: 30 Billed Treatment Time LACHO Jarvis SHIRLENE Gunn Jan 19, 2019 11:34
--- NOTE | 2019-01-19 11:52 | PM&R Progress Note ---
Subjective HPI/CC On Admission Date Seen by Provider: Jan 19, 2019 Time Seen by Provider: 10:00 Chief complaint: Critical illness myopathy HPI: This is a 78yoWF known to me from ICU 9 hospital stay after a massive GI bleed requiring surgery by Dr. Talamantes who was ultimately transferred to [place] on a ventilator, took three weeks to wean off, had trach placed peg tube for tube feedings and has resulted in severe weakness in need of inpatient rehab, she is doing very well, having a speaking valve on her trach and is not capped at this point because she is so fatigued. Dr. Ding is the investigator welfare who is working with her and is not comfortable capping the trach right now. She is eating 25-50% of the meals, she is receiving nocturnal tube feedings to supplement and overall she has severe weakness and will ultimately return home with her to continue recovery after inpatient rehab works on her strength. Subjective/Events-last exam Nausea noted today Zofran given with good results but did have some dry heaving prior to pills. Given Change proton pump inhibitor to pill form PEG discussed Trach discontinuation is working very well Patient now up in a chair and looking really good and strong Removing PEG tube soon by Dr. Acuña Checked med and labs Reviewed therapy notes Conferred with smart energy specialist of Systems General: Fatigue Objective Exam Vital Signs Vital Signs Date Time Temp Pulse Resp B/P (MAP) Pulse Ox O2 Delivery O2 Flow Rate FiO2 01/19/19 09:59 Room Air 01/19/19 08:30 105 130/71 (90) 01/19/19 05:11 97.8 17 98 01/17/19 20:30 6.00 01/14/19 07:21 28 Capillary Refill : Less Than 3 Seconds General Appearance: No Apparent Distress, WD/WN, Chronically ill, Thin HEENT: PERRL/EOMI, Normal ENT Inspection, Pharynx Normal, Moist Mucous Membranes, Other (trach in place) Neck: Full Range of Motion, Normal Inspection, Non Tender, Supple Respiratory: Chest Non Tender, Lungs Clear, No Accessory Muscle Use, No Respiratory Distress, Decreased Breath Sounds Cardiovascular: Regular Rate, Rhythm, No Edema, No Gallop, No JVD, No Murmur Gastrointestinal: Normal Bowel Sounds, No Organomegaly, No Pulsatile Mass, Non Tender, Soft, Other (PEG in place) Back: Normal Inspection, No CVA Tenderness, No Vertebral Tenderness Extremity: Normal Capillary Refill, Normal Inspection, Normal Range of Motion, Non Tender, No Calf Tenderness, No Pedal Edema Neurologic/Psychiatric: Alert, Oriented x3, Normal Mood/Affect, button sewer hand II-XII Norm as Tested, Motor Weakness (3/5 all extremities) Skin: Normal Color, Warm/Dry Lymphatic: No Adenopathy Results/Procedures Lab Patient resulted labs reviewed. FIM Transfers Therapy Code Descriptions/Definitions Functional [place] Measure: 0=Not Assessed/NA 4=Minimal Assistance 1=Total Assistance 5=Supervision or Setup 2=Maximal Assistance 6=Modified [place] 3=Moderate Assistance 7=Complete [place] Therapy Quality Codes: 6 Independent with activity with or without an assistive device 5 Patient requires set up or clean up by helper. Patient completes activity by themselves 4 Supervision or touching assist (CGA). [place] provide cues , steadying assist 3 The helper provides less than half the effort to complete the activity 2 The helper provides more than half the effort to complete the activity 1 Dependent. The helper does all the effort to complete an activity 7 Patient refused to complete or attempt activity 9 The patient did not perform the activity before the current illness or injury 88 Not attempted due to Medical conditions or safety concerns Transfers (B, C, W/C) (FIM): 2 Scootin Rollin Roll Left to Right (QC): 1 Supine to/from Sit: 2 Sit to/from Stand: 2 Sit to Lying (QC): 1 Sit to Stand (QC): 2 Chair/Dtj-qc-Ozpaz Xfer(QC): 2 Bed to/from Chair: 2 Car Transfer (QC): 88 Gait Training Does the Patient Walk?: No and Walking Goal NOT indicated Gait (FIM): 0 (unable to stand at this time. ) Distance (FIM): 0=does not occure Walk 10 feet (QC): 88 Walk 50 ft with 2 Turns(QC): 88 Walk 150 ft (QC): 88 Walking 10ft/uneven surface-QC: 88 Wheelchair Training Does the Pt Use a Wheelchair?: Yes Wheelchair (FIM): 2 Wheelchair Distance: 1=096-40 ft Distance: 50' Wheelchair Level of Assist: 4 Wheel 50 ft with 2 turns (QC): 4 Type of Wheelchair: Manual Stair Training Stairs (FIM): 0 1 Step (curb) (QC): 88 4 Steps (QC): 88 12 Steps (QC): 88 Balance Picking up an Object (QC): 88 Mental Status/Objective Comprehension: 7 Expression: 7 Social Interaction: 7 Problem Solvin Memory: 7 ADL-Treatment Feedin (requires set up secodanry to decrease FMC ) Eating (QC): 4 Groomin (seated in chair to comb hair. ) Oral Hygiene (QC): 4 Bathin (required assist with buttock and fernando. pt education on use of LHS to increas independence. ) Bathing Location: L Arm, R Arm, L Upper Leg, R Upper Leg, L Lower Leg (including foot), R Lower Leg (including foot), Chest, Abdomen Shower/Bathe Self (QC): 4 Upper Extremity Dressin (setup of shirt and VC to pull down in back. pt required additional timing to complete task. ) Upper Body Dressing (QC): 4 Lower Extremity Dressin (pants, Mukund socks. pt required TA for Mukund socks. pt education on use of assignment desk editor to perform LB dressing. pt demo ability to thread Mukund LE but required TA for pull up pants ) Lower Body Dressing (QC): 1 On/Off Footwear (QC): 1 Toiletin Toileting Hygiene (QC): 1 Toilet/Commode Transfer: 1 Toilet Transfer (QC): 1 (SB X 2 person assist ) Shower: 1 (SB X 2 person assist ) Assessment/Plan Assessment and Plan Assess & Plan/Chief Complaint Assessment: Myopathy (1) s/p Ventilator dependence Status: Acute (2) s/p Respiratory failure Status: Acute (3) Anemia due to acute blood loss Status: Acute (4) GERD (gastroesophageal reflux disease) Status: Chronic (5) Dementia Status: Chronic (6) s/p Acute GI bleeding Status: Acute (7) Weakness Status: Acute (8) s/p Transfusion of blood during current hospitalization Status: Acute (9) h/o Pyloric ulcer Status: Acute (10) Trach in place (11) PEG in place with TF at night now discontinued and eating 100 percent oral Plan: Monitor closely TF DC and now eating 100% so DC PEG soon per Dr Acuña Continue all meds as ordered Reviewed labs Appreciate Dr Lozada and now we discontinued trach Full code at 's request Unsure of the recoverability of this patient may ultimately need NHP Patient slow to improve but appears to be motivated Check labs prn NHP at [place] 01/25/19 (1) Myopathy (2) GERD (gastroesophageal reflux disease) (3) Ventilator dependence (4) Hyperkalemia (5) Dementia (6) Pyloric ulcer (7) Tracheostomy in place (8) Transfusion history BO SUÁREZ DO Jan 19, 2019 11:51
--- NOTE | 2019-01-19 12:30 | Consultation (Surgery) ---
History of Present Illness History of Present Illness Patient Consulted On(tan/time) 01/19/19 12:28 Time Seen by Provider: 12:19 History of Present Illness Surgery asked to consult regarding Gastrostomy tube Status. HPI per IM: This is a 78yoWF known to me from ICU 9 hospital stay after a massive GI bleed requiring surgery by Dr. Talamantes who was ultimately transferred to [place] on a ventilator, took three weeks to wean off, had trach placed peg tube for tube feedings and has resulted in severe weakness in need of inpatient rehab, she is doing very well, having a speaking valve on her trach and is not capped at this point because she is so fatigued. Dr. Ding is the gospel worker who is working with her and is not comfortable capping the trach right now. She is eating 25-50% of the meals, she is receiving nocturnal tube feedings to supplement and overall she has severe weakness and will ultimately return home with her to continue recovery after inpatient rehab works on her strength. Source: patient, family, RN/MD, old records When I saw pt she was sitting in chair had just eaten and appeared comfortable. She denied abdominal pain. She is now eating 90% of food and they are not using PEG. Allergies and Home Medications Allergies Uncoded Allergies: UNKNOWN BLADDER MED (Allergy, Unknown, 10/03/18) none (Adverse Reaction, Unknown, 08/20/14) Home Medications Acetaminophen 650 Mg Tablet.er, 650 MG PO Q6H PRN for PAIN-MILD, (Reported) Atenolol 25 Mg Tablet, 25 MG PO HS, (Reported) Calcium Carbonate/Vitamin D3 1 Each Tablet, 2 TAB PO DAILY, (Reported) Cholecalciferol (Vitamin D3) 1,000 Unit Capsule, 2,000 UNIT PO DAILY, (Reported) Folic Acid 1 Mg Tablet, 1 MG PO DAILY, (Reported) Methotrexate Sodium 2.5 Mg Tablet, 15 MG PO Fr, (Reported) TAKES 6 (2.5MG) TABLETS Multivitamin 1 Each Tablet, 1 TAB PO DAILY, (Reported) Ranitidine HCl 150 Mg Tablet, 150 MG PO BID, (Reported) Tramadol HCl 50 Mg Tablet, 100 MG PO Q6H PRN for PAIN-MODERATE, (Reported) Patient Home Medication List Home Medication List Reviewed: Yes Past Mevfazg-Hjskdd-Kahebo Hx Patient Social History Alcohol Use: Denies Use Recreational Drug Use: No Smoking Status: Never a Smoker 2nd Hand Smoke Exposure: No Recent Foreign Travel: No Contact w/Someone Who Travel: No Recent Infectious Disease Expo: No Recent Hopitalizations: No Physical Abuse Screen: No Sexual Abuse: No Immunizations Up To Date Tetanus Booster (TDap): More than 5yrs PED Vaccines UTD: No Date of Pneumonia Vaccine: Aug 20, 2013 Date of Influenza Vaccine: Apr 19, 2014 Seasonal Allergies Seasonal Allergies: No Surgeries History of Surgeries: Yes (RIGHT HIP REPLACEMENT, NECK SURGERY, EXPLORATORY ABD SURGERY) Surgeries: Joint Replacement Respiratory History of Respiratory Disorde: Yes (RESPIRATORY DISTRESS WITH CURRENT TRACH) Respiratory Disorders: Pneumonia Cardiovascular History of Cardiac Disorders: Yes Neurological History of Neurological Disord: No Neurological Disorders: Dementia Reproductive System Hx Reproductive Disorders: No Sexually Transmitted Disease: No HIV/AIDS: No Female Reproductive Disorders: Denies Genitourinary History of Genitourinary Disor: Yes Genitourinary Disorders: UTI-Chronic Gastrointestinal History of Gastrointestinal Di: Yes Gastrointestinal Disorders: Gastroesophageal Reflux, Gastrointestinal Bleed Musculoskeletal History of Musculoskeletal Dis: Yes Musculoskeletal Disorders: Degenerate Disk Disease, Rheumatoid Arthritis Endocrine History of Endocrine Disorders: Yes Endocrine Disorders: Diabetes, Non-Insulin dep HEENT History of HEENT Disorders: Yes HEENT Disorders: Cataract Loss of Vision: Denies Hearing Impairment: Denies Cancer History of Cancer: No Psychosocial History of Psychiatric Problem: No Integumentary History of Skin or Integumenta: No Blood Transfusions History of Blood Disorders: No Adverse Reaction to a Blood Tr: No Family Medical History Significant Family History: Other Conditions/Hx (Pt denies any HTN, DM or cancer in her family members) Family Medial History: Patient reports no known family medical history. Review of Systems-General Constitutional: malaise, weakness EENTM: vision loss, hoarseness, other (healing tracheostomy site); No epistaxis, No throat pain, No throat swelling Respiratory: No cough; dyspnea on exertion; No hemoptysis Cardiovascular: No chest pain, No edema Gastrointestinal: No abdominal pain, No nausea, No vomiting Genitourinary: No dysuria, No frequency, No hematuria Musculoskeletal: joint pain, muscle pain, muscle stiffness Skin: No change in color, No change in hair/nails Psychiatric/Neurological: Depressed; Denies Seizure, Denies Tremors Other no history of abnormal bruising or bleeding, no heat or cold intolerance Physical Exam-General Problems Physical Exam Vital Signs Vital Signs - First Documented 01/13/19 01/13/19 05:35 08:11 Temp 97.7 Pulse 98 Resp 22 B/P (MAP) 115/60 (78) Pulse Ox 100 O2 Delivery Room Air O2 Flow Rate 6.00 FiO2 28 Capillary Refill : Less Than 3 Seconds General Appearance: WD/WN, no apparent distress, other (chronically ill) Eyes: Bilateral Eye PERRL, Bilateral Eye EOMI HEENT: No scleral icterus (R), No scleral icterus (L); other (healing trach site) Respiratory: chest non-tender, lungs clear, no respiratory distress, no accessory muscle use, decreased breath sounds (at bases, possibly just due to poor effort) Cardiovascular: regular rate, rhythm, no murmur Gastrointestinal: soft, no organomegaly, no pulsatile mass, other (PEG in place looks good) Neurologic/Psychiatric: moss picker II-XII nml as tested, alert, depressed affect Skin: normal color, warm/dry Lymphatic: no adenopathy (neck, axilla or groin) Assessment/Plan Assessment/Plan Assessment/Plan Gastrostomy Status Anemia Weakness Dementia Pt is doing well with PO feedings and no longer needs her PEG tube; however, it must mature in order to be pulled out. WIll have to wait 12 weeks from the date it was placed; (December 09 at [facility]). This can be done in the office. If pt is sent to SNF, she can follow up from there or home. Pt is anemic but doesn't appear to be bleeding; monitor H/H and continue PPI. Clinical Quality Measures DVT/VTE Risk/Contraindication: Risk Factor Score Per Nursin RFS Level Per Nursing on Admit: 4+=Very High TERRY LLAMAS DO Jan 19, 2019 12:30
--- NOTE | 2019-01-19 12:35 | NUR ---
Dr. Acuña here to see patient regarding PEG tube removal. Per Dr. Acuña, PEG tube has to be in for 12 weeks post insertion. Call to [facility] to verify insertion date. [place] states that PEG tube was placed on December 09, 2018 and General Surgeon Progress note faxed over. Dr. Acuña notified. Addendum: 01/19/19 at 1243 by VENECIA CORONADO RN Per [facility] Progress note... PEG tube was actually placed on December 08, 2018.
[2019-01-19] MEDS: ROFLUMILAST 500 MCG TAB (DALIRESP) PO SCH (14:29)
--- NOTE | 2019-01-19 14:36 | Therapy Group Daily Note ---
Therapy Daily Group Note Patient Education Topic Other List Below (Memory Strategies) Session Ratio (pt:therapist): 4:1 Goal of Session: Memory Strategies Goal Met for this Session: Yes Pt Benefit of Group: Contributions to Others, F/U Use of Strategies @Home, Increased Functional Safety, Improved Cognition, Recognition of Peers, Socialization Other/Notes Pt is wheeled to PT/OT Group in her recliner for comfort. Group consisted of Introductions (Name, Where you are from & Favorite 19 of January or Firework Memory), Socialization, Memory Strategies and Activity. Pt actively participated in Group by listening to peers, giving personal Memory Strategies as well guesses during game. Pt returns to room at end of Group to rest with all needs met. Start Time: 12:30 Stop Time: 13:30 Total Billed Treatment Time: 60 Total Billed Treatment 1, GRP PIERRE MOYER ABSORBER OPERATOR Jan 19, 2019 14:36
[2019-01-19] MEDS: ENOXAPARIN 40 MG/0.4 ML (LOVENOX) SYR SC SCH (16:16)
[2019-01-19 16:17] VITALS: BP 109/55
[2019-01-19] MEDS: LIDOCAINE PATCH REMOVAL TP SCH (20:41)
[2019-01-20] MEDS: SUCRALFATE 1 GM (CARAFATE) TAB PO SCH ×5 (00:37→23:45)
[2019-01-20] MEDS: RT-ALBUTEROL/IPRATROPIUM 3 ML (DUONEB) VIAL IH PRN (05:12)
[2019-01-20] MEDS: NIACIN 500 MG TABLET PO SCH ×2 (06:05→17:29)
[2019-01-20 06:20] VITALS: BP 114/53
[2019-01-20] MEDS: LIDOCAINE 4% (SALONPAS) PATCH TOP SCH (08:02)
[2019-01-20] MEDS: LACTOBACILLUS ACIDOPHILUS (PROBIOTIC) CAPSULE PO SCH ×2 (08:02→21:10)
[2019-01-20] MEDS: FOLIC ACID 1 MG TAB PO SCH (08:02)
[2019-01-20] MEDS: ASCORBIC ACID (VIT C) 500 MG TABLET PO SCH (08:02)
[2019-01-20] MEDS: meTOprolol TARTRATE 25 MG (LOPRESSOR) TABLET PO SCH ×2 (08:03→21:09)
[2019-01-20] MEDS: PANTOPRAZOLE 40 MG (PROTONIX) TAB PO SCH (08:03)
[2019-01-20] MEDS: THIAMINE 100 MG (VITAMIN B-1) TAB PO SCH ×2 (08:03→21:09)
[2019-01-20] MEDS: MULTIVIT W/MINERALS TAB (THERAGRAN M) PO SCH (08:03)
[2019-01-20 08:05] VITALS: BP 132/76
[2019-01-20] MEDS: SILDENAFIL 20 MG (REVATIO) TAB NON-FORMULARY PO SCH ×3 (08:06→21:10)
--- NOTE | 2019-01-20 08:07 | Pulmonary Progress Note ---
Subjective Time Seen by a Provider: 08:06 Subjective/Events-last exam PT feels much improved milla with trach tube out. Sepsis Event Evaluation Height, Weight, BMI Height: 5'2.00" Weight: 117lbs. 3.2oz. 53.006635ox; 20.9 BMI Method:Actual Exam Exam Vital Signs Date Time Temp Pulse Resp B/P (MAP) Pulse Ox O2 Delivery O2 Flow Rate FiO2 01/20/19 08:05 101 132/76 (94) 01/20/19 06:20 98.7 94 18 114/53 (73) 92 Room Air 01/20/19 05:13 93 Room Air 01/19/19 20:30 Room Air 01/19/19 19:51 95 Room Air 01/19/19 18:19 Room Air 01/19/19 16:17 97.9 86 14 109/55 (73) 95 Room Air 01/19/19 09:59 Room Air 01/19/19 08:30 105 130/71 (90) I & O 01/20/19 07:00 Intake Total 1850 ml Balance 1850 ml Height & Weight Height: 5'2.00" Weight: 117lbs. 3.2oz. 53.951385pl; 20.9 BMI Method:Actual General Appearance: No Apparent Distress, WD/WN, Chronically ill, Thin HEENT: PERRL/EOMI, Normal ENT Inspection, Pharynx Normal, Moist Mucous Membranes, Other (trach in place) Neck: Full Range of Motion, Normal Inspection, Non Tender, Supple Respiratory: Chest Non Tender, Lungs Clear, No Accessory Muscle Use, No Respiratory Distress, Decreased Breath Sounds Cardiovascular: Regular Rate, Rhythm, No Edema, No Gallop, No JVD, No Murmur Capillary Refill: Less Than 3 Seconds Gastrointestinal: soft, no organomegaly, no pulsatile mass, other (PEG in place looks good) Extremity: Normal Capillary Refill, Normal Inspection, Normal Range of Motion, Non Tender, No Calf Tenderness, No Pedal Edema Neurologic/Psychiatric: Alert, Oriented x3, Normal Mood/Affect, friction welding machine operator II-XII Norm as Tested, Motor Weakness (3/5 all extremities) Skin: Normal Color, Warm/Dry Lymphatic: No Adenopathy Assessment/Plan Assessment/Plan Chronic respiratory failure s/p tracheostomy -SVNS -Monitor -No complications noted -Trach tube has been capped and pt is still doing well -Will D/C tracheostomy tube. Anemia with hx of GIB -Monitor ARJUN MEADE DO Jan 20, 2019 08:07
--- NOTE | 2019-01-20 09:05 | Physical Therapy Daily Note ---
PT Daily Note-Current Subjective Pt. in bed, agrees to Rx. States she would like to be dressed to go out of room. States she actually went to the bathroom on a bed amin at some point last night. Pain Location: No Pain Reported Appearance skin on bottom improved however incont conts Mental Status Patient Orientation: Normal For Age Attachments: PEG Tube very [place] Transfers Therapy Code Descriptions/Definitions Functional [place] Measure: 0=Not Assessed/NA 4=Minimal Assistance 1=Total Assistance 5=Supervision or Setup 2=Maximal Assistance 6=Modified [place] 3=Moderate Assistance 7=Complete [place] Therapy Quality Codes: 6 Independent with activity with or without an assistive device 5 Patient requires set up or clean up by helper. Patient completes activity by themselves 4 Supervision or touching assist (CGA). [place] provide cues , steadying assist 3 The helper provides less than half the effort to complete the activity 2 The helper provides more than half the effort to complete the activity 1 Dependent. The helper does all the effort to complete an activity 7 Patient refused to complete or attempt activity 9 The patient did not perform the activity before the current illness or inj ury 88 Not attempted due to Medical conditions or safety concerns Transfers (B, C, W/C) (FIM): 1 Scootin Rollin Supine to/from Sit: 3 sup to side to sit EOB min assist with rails used Weight Bearing Right Lower Extremity: Right Full Weight Bearing Left Lower Extremity: Left Full Weight Bearing Gait Training Does the Patient Walk?: No and Walking Goal NOT indicated Wheelchair Training Does the Pt Use a Wheelchair?: Yes Wheelchair (FIM): 1 Wheelchair Distance: 1=up to 49 ft (25ftx2) Wheelchair Level of Assist: 3 Type of Wheelchair: Manual needs full assist for braking, and mod assist for guiding and steering wc Exercises Supine Ex: Ankle pumps (HC stretches), Rolling (mod to max assist), Heel Slides (assist), Scooting (max assist), Straight leg raise (assist), Hip abd/add (assist) Supine Reps: 15 NuStep Minutes: 9 NuStep Workload: 1 Treatments rolling many times in bed with mod to max assist for brief change and dressing pulling brief up and pants up Assessment Current Status: Fair Progress dependent for all mobility. PT Short Term Goals Short Term Goals Time Frame: Jan 19, 2019 Transfers (B,C,W/C) (FIM): 3 Gait (FIM): 2 Distance (FIM): 1=975-96 ft Gait Assistive Device: FWW Wheelchair Distance: 50' PT Assistant Customer Service Manager Goals Senior Living Goals PT Assistant Customer Service Manager Goals Time Frame: Feb 02, 2019 Transfers (B,C,W/C) (FIM): 6 Sit to Lying (QC): 6 Lying-Sitting on Side/Bed(QC): 6 Sit to Stand (QC): 6 Rollin Roll Left to Right (QC): 6 Chair/[id number]-[id number]-Vigpv Xfer(QC): 6 Car Transfer (QC): 5 Does the Patient Walk: No and Walking Goal IS indicated Gait (FIM): 5 Gait distance (FIM): 0=943-97 ft Walk 10 feet (QC): 5 Walk 10ft-Uneven Surface(QC): 5 Walk 50ft with 2 Turns (QC): 5 Walk 150 ft (QC): 4 Gait Assistive Device: FWW Does the Pt use WC or Scooter?: No Stairs (FIM): 2 # of Steps: 4 1 Step (curb) (QC): 5 4 Steps (QC): 4 12 Steps (QC): 88 Picking up an Object (QC): 88 PT Plan Treatment/Plan Treatment Plan: Continue Plan of Care Treatment Plan: Bed Mobility, Education, Functional Activity Ralph, Functional Strength, Group Therapy, Gait, Safety, Therapeutic Exercise, Transfers Treatment Duration: Feb 02, 2019 Frequency: At least 5 of 7 days/Wk (IRF) Estimated Hrs Per Day: 1.5 hours per day Patient and/or Family Agrees t: Yes Safety Risks/Education Patient Education: Transfer Techniques (rolling), Correct Positioning, Disease Process, Safety Issues Teaching Recipient: Patient Teaching Methods: Demonstration, Discussion Response to Teaching: Verbalize Understanding, Reinforcement Needed Time/GCodes Time In: 800 Time Out: 900 Total Billed Treatment Time: 60 Total Billed Treatment 1, FA25m,wch15, EX20 G Codes Necessary: No GARTH MLAIN ORGANIC EXTRACTIONS TECHNICIAN Jan 20, 2019 09:05
[2019-01-20] MEDS: HYDROcodone/APAP 7.5 MG/325 MG (LORTAB, LORCET PLUS) TABLET PO PRN ×2 (09:52→20:25)
--- NOTE | 2019-01-20 10:22 | Speech Therapy Daily Note ---
Speech Daily Progress Note Subjective Date Seen by Provider: Jan 20, 2019 Time Seen by Provider: 00:30 The patient was resting in her room after completing her PT session. Objective Patient utilized compensatory strategies training for safe oral intake at 90% with minimal verbal cues. Assessment Assessment Current Status: Good Progress Treatment Plan Continue Plan of Care Communication Comprehension: 7 Expression: 7 Social Cognition Social Interaction: 7 Problem Solvin Memory: 7 Speech Short Term Goals Short Term Goals Short Term Goals 1) The patient will tolerate the least restrictive diet level without s/s of aspiration at 90% with minimal verbal cues. 2) The patient will utilize compensatory strategies as trained for safe oral intake at 90% or greater with minimal verbal cues. Speech Mold Closer Helper Goals Mold Closer Helper Goals The patient will maintain adequate nutrition/hydration via safe effective swallow function with PEG tube as needed. Speech-Plan Patient/Family Goals Patient/Family Goals: The patient is scheduled to discharge on 01/25/19. Treatment Plan Speech Therapy Treatment Plan: Continue Plan of Care The patient has made good progress with regular diet level. Treatment Duration: Jan 25, 2019 Frequency: 5 times per week Estimated Hrs Per Day: .5 hour per day Rehab Potential: Fair Barriers to Learning: Patient has a medically complex status. Pt/Family Agrees to Plan: Yes Safety Risks/Education Teaching Recipient: Patient Teaching Methods: Discussion Response to Teaching: Verbalize Understanding Education Topics Provided: Continued safety of oral intake. Time Speech Therapy Time In: 09:30 Speech Therapy Time Out: 10:00 Total Billed Time: 30 Billed Treatment Time 1LACHO SHIRLENE Gunn Jan 20, 2019 10:22
--- NOTE | 2019-01-20 10:57 | Occupational Ther Daily Note ---
OT Current Status-Daily Note Subjective pt agreed to OT TX session with focus on increasing independence with ADLs and FMC for daily activities. pt reports no pain. Mental Status/Objective Therapy Code Descriptions/Definitions Functional [place] Measure: 0=Not Assessed/NA 4=Minimal Assistance 1=Total Assistance 5=Supervision or Setup 2=Maximal Assistance 6=Modified [place] 3=Moderate Assistance 7=Complete [place] ADL-Treatment Therapy Code Descriptions/Definitions Functional [place] Measure: 0=Not Assessed/NA 4=Minimal Assistance 1=Total Assistance 5=Supervision or Setup 2=Maximal Assistance 6=Modified [place] 3=Moderate Assistance 7=Complete [place] Therapy Quality Codes: 6 Independent with activity with or without an assistive device 5 Patient requires set up or clean up by helper. Patient completes activity by themselves 4 Supervision or touching assist (CGA). [place] provide cues , steadying assist 3 The helper provides less than half the effort to complete the activity 2 The helper provides more than half the effort to complete the activity 1 Dependent. The helper does all the effort to complete an activity 7 Patient refused to complete or attempt activity 9 The patient did not perform the activity before the current illness or injury 88 Not attempted due to Medical conditions or safety concerns Eating (FIM): 6 (increase timing to open containers secodnary to decrease FMC ) Grooming (FIM): 5 (education on proper seated positioning to increase balance while perofrming grooming pt demo correctly and oerform grooming with SBA ) Oral Hygiene (QC): 4 Upper Body (FIM): 5 (order puller shirt, increased timing ) Upper Body Dressing (QC): 4 Lower Body Dressing (FIM): 5 (pt educaiton on LB dressing (ayush socks) using AE (wellness assistant, dressing stick, and sock aid.) pt demo ability to neli/ doff ayush socks using equipemtn X2 with increase timing. ) Lower Body Dressing (QC): 4 On/Off Footwear (QC): 4 noted pt face fill with enjoyment when she complete neli/ doff of Ayush sock with MOD VC for skilled techniques. Other Treatment pt transported to TX gym and perform ability to place 10 pegs on board X2 using R andL hand. noted decrease FMC (more on R compared to L) and increase frustration with technique. pt then transported back to room sitting in recliner chair, calll light within reach, all needs met. Education OT Patient Education: Modified ADL techniques, Progress toward Goal/Update tx plan, Purpose of tx/functional activities, Reviewed precautions, Rehab process, Safety issues, Use of adapted equipment Teaching Recipient: Patient Teaching Methods: Discussion Response to Teaching: Verbalize Understanding, Return Demonstration, Reinforcement Needed OT Short Term Goals Short Term Goals Eating(FIM): 3 Grooming(FIM): 3 Bathing(FIM): 3 Upper Body Dressing(FIM): 3 Lower Body Dressing(FIM): 3 Toileting(FIM): 3 Transfers (B,C,W/C) (FIM): 3 Toilet/Commode Transfer(FIM): 3 Shower Transfer(FIM): 3 1=Demonstrate adherence to instructed precautions during ADL tasks. 2=Patient will verbalize/demonstrate understanding of assistive devices/modifications for ADL. 3=Patient will improve strength/tolerance for activity to enable patient to perform ADL's. OT Educational Adviser Goals Fpc Goals Time Frame: Feb 07, 2019 Eating (FIM): 6 Eating (QC): 6 Groomin Oral Hygiene (QC): 6 Bathing(FIM): 5 Bathing Location: L Arm, R Arm, L Upper Leg, R Upper Leg, L Lower Leg (including foot), R Lower Leg (including foot), Chest, Abdomen, Buttocks, Perin eal Area Shower/Bathe Self (QC): 5 Upper Body Dressing(FIM): 5 Upper Body Dressing (QC): 5 Lower Body Dressing(FIM): 5 Lower Body Dressing (QC): 5 On/Off Footwear (QC): 5 Toileting(FIM): 5 Toileting Hygiene (QC): 5 Transfers (B,C,W/C) (FIM): 5 Toilet/Commode Transfer(FIM): 5 Toilet/Commode Transfer (QC): 5 Shower Transfer(FIM): 5 Additional Goals: 1-Demonstrate ADL Tasks, 2-Verbalize Understanding, 3- ImproveStrength/Ralph 1=Demonstrate adherence to instructed precautions during ADL tasks. 2=Patient will verbalize/demonstrate understanding of assistive devices/modifications for ADL. 3=Patient will improve strength/tolerance for activity to enable patient to perform ADL's. OT Education/Plan Problem List/Assessment Assessment: Decreased Activ Tolerance, Decreased Safety Aware, Decreased UE Strength, Dependent Transfers, Impaired Bed Mobility, Impaired Coordination, Impaired Funct Balance, Impaired I ADL's, Impaired Self-Care Skills pt presents with functional limitations affecting areas of ADLs and functional transfers with the above mention. pt would benefit from skilled OT services to address above mention deficits and to increase independence with ADLs and functional transfers. pt is making progress each day while in therapy. pt increase UE dressing to SBA and Grooming to SBA this date. Discharge Recommendations Plan/Recommendations: Continue POC Therapy D/C Recommendations: [facility]ent[facility] (TCU/[facility]) Barriers to Progress [facility] Treatment Plan/Plan of Care Treatment,Training & Education: Yes Patient would benefit from OT for education, treatment and training to promote independence in ADL's, mobility, safety and/or upper extremity function for ADL's. Plan of Care: ADL Retraining, Caregiver Training, Cognitive Retraining, Concurrent Therapy, Functional Mobility, Group Exercise/Act as Ind, UE Funct Exercise/Act, W/C Management Training Treatment Duration: Feb 09, 2019 Frequency: At least 5 of 7 days/Wk (IRF) Estimated Hrs Per Day: 1 hour per day (60-90 minutes per day ) Agreement: Yes Rehab Potential: Fair Time/GCodes Start Time: 10:00 Stop Time: 11:00 Billed Treatment Time ADL 45 minutes, 3 units FA, 15 minutes, 1 unit ANGELY CHOUDHURY OT Jan 20, 2019 10:57
--- NOTE | 2019-01-20 11:35 | PM&R Progress Note ---
Subjective HPI/CC On Admission Date Seen by Provider: Jan 20, 2019 Time Seen by Provider: 09:00 Chief complaint: Critical illness myopathy HPI: This is a 78yoWF known to me from ICU 9 hospital stay after a massive GI bleed requiring surgery by Dr. Talamantes who was ultimately transferred to [place] on a ventilator, took three weeks to wean off, had trach placed peg tube for tube feedings and has resulted in severe weakness in need of inpatient rehab, she is doing very well, having a speaking valve on her trach and is not capped at this point because she is so fatigued. Dr. Ding is the tongsman who is working with her and is not comfortable capping the trach right now. She is eating 25-50% of the meals, she is receiving nocturnal tube feedings to supplement and overall she has severe weakness and will ultimately return home with her to continue recovery after inpatient rehab works on her strength. Subjective/Events-last exam Nausea resolved today PPI PO now PEG discussed Trach discontinuation is working very well Patient now up in a chair and looking really good and strong Removing PEG tube soon by Dr. Acuña after 03/02/19 since it must be healed before it can be DC Loose stools are improved overall Checked med and labs Reviewed therapy notes Conferred with director of regulatory affairs of Systems General: Fatigue Objective Exam Vital Signs Vital Signs Date Time Temp Pulse Resp B/P (MAP) Pulse Ox O2 Delivery O2 Flow Rate FiO2 01/20/19 08:06 94 Room Air 01/20/19 08:05 101 132/76 (94) 01/20/19 06:20 98.7 18 01/17/19 20:30 6.00 01/14/19 07:21 28 Capillary Refill : Less Than 3 Seconds General Appearance: No Apparent Distress, WD/WN, Chronically ill, Thin HEENT: PERRL/EOMI, Normal ENT Inspection, Pharynx Normal, Moist Mucous Membranes Neck: Full Range of Motion, Normal Inspection, Non Tender, Supple Respiratory: Chest Non Tender, Lungs Clear, No Accessory Muscle Use, No Respiratory Distress, Decreased Breath Sounds Cardiovascular: Regular Rate, Rhythm, No Edema, No Gallop, No JVD, No Murmur Gastrointestinal: Normal Bowel Sounds, No Organomegaly, No Pulsatile Mass, Non Tender, Soft, Other (PEG in place) Back: Normal Inspection, No CVA Tenderness, No Vertebral Tenderness Extremity: Normal Capillary Refill, Normal Inspection, Normal Range of Motion, Non Tender, No Calf Tenderness, No Pedal Edema Neurologic/Psychiatric: Alert, Oriented x3, Normal Mood/Affect, louver door assembler II-XII Norm as Tested, Motor Weakness (3/5 all extremities) Skin: Normal Color, Warm/Dry Lymphatic: No Adenopathy Results/Procedures Lab Patient resulted labs reviewed. FIM Transfers Therapy Code Descriptions/Definitions Functional [place] Measure: 0=Not Assessed/NA 4=Minimal Assistance 1=Total Assistance 5=Supervision or Setup 2=Maximal Assistance 6=Modified [place] 3=Moderate Assistance 7=Complete [place] Therapy Quality Codes: 6 Independent with activity with or without an assistive device 5 Patient requires set up or clean up by helper. Patient completes activity by themselves 4 Supervision or touching assist (CGA). [place] provide cues , steadying assist 3 The helper provides less than half the effort to complete the activity 2 The helper provides more than half the effort to complete the activity 1 Dependent. The helper does all the effort to complete an activity 7 Patient refused to complete or attempt activity 9 The patient did not perform the activity before the current illness or injury 88 Not attempted due to Medical conditions or safety concerns Transfers (B, C, W/C) (FIM): 1 Scootin Rollin Roll Left to Right (QC): 1 Supine to/from Sit: 3 Sit to/from Stand: 2 Sit to Lying (QC): 1 Sit to Stand (QC): 2 Chair/Cwu-vh-Qrkro Xfer(QC): 2 Bed to/from Chair: 2 Car Transfer (QC): 88 Gait Training Does the Patient Walk?: No and Walking Goal NOT indicated Gait (FIM): 0 (unable to stand at this time. ) Distance (FIM): 0=does not occure Walk 10 feet (QC): 88 Walk 50 ft with 2 Turns(QC): 88 Walk 150 ft (QC): 88 Walking 10ft/uneven surface-QC: 88 Wheelchair Training Does the Pt Use a Wheelchair?: Yes Wheelchair (FIM): 1 Wheelchair Distance: 1=up to 49 ft (25ftx2) Distance: 50' Wheelchair Level of Assist: 3 Wheel 50 ft with 2 turns (QC): 4 Type of Wheelchair: Manual Stair Training Stairs (FIM): 0 1 Step (curb) (QC): 88 4 Steps (QC): 88 12 Steps (QC): 88 Balance Picking up an Object (QC): 88 Mental Status/Objective Comprehension: 7 Expression: 7 Social Interaction: 7 Problem Solvin Memory: 7 ADL-Treatment Feedin (increase timing to open containers secodnary to decrease FMC ) Eating (QC): 4 Groomin (education on proper seated positioning to increase balance while perofrming grooming pt demo correctly and oerform grooming with SBA ) Oral Hygiene (QC): 4 Bathin (required assist with buttock and fernando. pt education on use of LHS to increas independence. ) Bathing Location: L Arm, R Arm, L Upper Leg, R Upper Leg, L Lower Leg (including foot), R Lower Leg (including foot), Chest, Abdomen Shower/Bathe Self (QC): 4 Upper Extremity Dressin (toe puller shirt, increased timing ) Upper Body Dressing (QC): 4 Lower Extremity Dressin (pt educaiton on LB dressing (ayush socks) using AE (office support, dressing stick, and sock aid.) pt demo ability to neli/ doff ayush socks using equipemtn X2 with increase timing. ) Lower Body Dressing (QC): 4 On/Off Footwear (QC): 4 Toiletin Toileting Hygiene (QC): 1 Toilet/Commode Transfer: 1 Toilet Transfer (QC): 1 (SB X 2 person assist ) Shower: 1 (SB X 2 person assist ) Assessment/Plan Assessment and Plan Assess & Plan/Chief Complaint Assessment: Myopathy (1) s/p Ventilator dependence Status: Acute (2) s/p Respiratory failure Status: Acute (3) Anemia due to acute blood loss Status: Acute (4) GERD (gastroesophageal reflux disease) Status: Chronic (5) Dementia Status: Chronic (6) s/p Acute GI bleeding Status: Acute (7) Weakness Status: Acute (8) s/p Transfusion of blood during current hospitalization Status: Acute (9) h/o Pyloric ulcer Status: Acute (10) Trach in place (11) PEG in place with TF at night now discontinued and eating 100 percent oral Plan: Monitor closely TF DC and now eating 100% so DC PEG soon per Dr Acuña Continue all meds as ordered Reviewed labs Appreciate Dr Lozada and now we discontinued trach Full code at 's request Unsure of the recoverability of this patient may ultimately need NHP Patient slow to improve but appears to be motivated Check labs prn NHP at DC 01/25/19 (1) Myopathy (2) GERD (gastroesophageal reflux disease) (3) Ventilator dependence (4) Hyperkalemia (5) Dementia (6) Pyloric ulcer (7) Tracheostomy in place (8) Transfusion history BO SUÁREZ DO Jan 20, 2019 11:35
[2019-01-20] MEDS: ROFLUMILAST 500 MCG TAB (DALIRESP) PO SCH (14:12)
--- NOTE | 2019-01-20 14:41 | Therapy Group Daily Note ---
Therapy Daily Group Note Exercises Fine Motor, UE Exercise Session Ratio (pt:therapist): 4:1 Goal of Session: Memory Strategies, UE/LE Strengthing Goal Met for this Session: Yes Pt Benefit of Group: Contributions to Others, Improved Cognition, Recognition of Peers, Socialization Other/Notes Pt transported in recliner to OT/PT group in [facility]. Group consisted of introductions, remembering 5 words from previous group, activities that incorporated cognition, socialization, UE AROM and fine motor dexterity. Pt was quiet and shy in beginning then interaction with peers increased. Pt demonstrated good UE ROM and fine motor dexterity during activities. Pt was able to sequence and show good cognitive skills during activities. After therapy, pt lying in bed with call light/phone in reach. All needs met in room. Start Time: 13:00 Stop Time: 14:10 Total Billed Treatment Time: 70 Total Billed Treatment 1-GRP SALLY CHRISTINE Jan 20, 2019 14:41
--- NOTE | 2019-01-20 15:27 | Progress Note ---
Subjective Time Seen by a Provider: 14:49 Subjective/Events-last exam Pt seen and examined, no changes and denies pain. Review of Systems Cardiovascular: No: Chest Pain, Palpitations Gastrointestinal: No: Nausea, Vomiting Objective Exam Vital Signs Date Time Temp Pulse Resp B/P (MAP) Pulse Ox O2 Delivery O2 Flow Rate FiO2 01/20/19 08:06 94 Room Air 01/20/19 08:05 101 132/76 (94) 01/20/19 08:00 Room Air 01/20/19 06:20 98.7 94 18 114/53 (73) 92 Room Air 01/20/19 05:13 93 Room Air 01/19/19 20:30 Room Air 01/19/19 19:51 95 Room Air 01/19/19 18:19 Room Air 01/19/19 16:17 97.9 86 14 109/55 (73) 95 Room Air I & O 01/20/19 07:00 Intake Total 1850 ml Balance 1850 ml Capillary Refill : Less Than 3 Seconds General Appearance: No Apparent Distress, WD/WN, Chronically ill, Thin HEENT: PERRL/EOMI, Moist Mucous Membranes, Other (trach in place) Respiratory: Chest Non Tender, Lungs Clear, No Accessory Muscle Use, No Respiratory Distress, Decreased Breath Sounds Cardiovascular: Regular Rate, Rhythm, No Murmur Gastrointestinal: normal bowel sounds, non tender, soft, other (PEG tube in place) Extremity: No Calf Tenderness Neurologic/Psychiatric: Alert, Motor Weakness (3/5 all extremities) Assessment/Plan Assessment/Plan Assessment/Plan Gastrostomy Status Anemia Weakness Dementia Plan is D/C PEG tube anytime after March 11. I will sign off and can reconsult if anything changes. Clinical Quality Measures DVT/VTE Risk/Contraindication: Risk Factor Score Per Nursin RFS Level Per Nursing on Admit: 4+=Very High TERRY LLAMAS DO Jan 20, 2019 15:26
[2019-01-20] MEDS: ENOXAPARIN 40 MG/0.4 ML (LOVENOX) SYR SC SCH (17:29)
[2019-01-20 18:00] VITALS: BP 135/64
[2019-01-20] MEDS: LIDOCAINE PATCH REMOVAL TP SCH (21:24)
[2019-01-21] MEDS: HYDROcodone/APAP 7.5 MG/325 MG (LORTAB, LORCET PLUS) TABLET PO PRN ×3 (02:18→20:35)
[2019-01-21 05:50] VITALS: BP 132/72
[2019-01-21] MEDS: NIACIN 500 MG TABLET PO SCH ×2 (06:21→17:25)
[2019-01-21] MEDS: SUCRALFATE 1 GM (CARAFATE) TAB PO SCH ×3 (06:21→17:25)
[2019-01-21] MEDS: FOLIC ACID 1 MG TAB PO SCH (08:52)
[2019-01-21] MEDS: PANTOPRAZOLE 40 MG (PROTONIX) TAB PO SCH (08:52)
[2019-01-21] MEDS: LACTOBACILLUS ACIDOPHILUS (PROBIOTIC) CAPSULE PO SCH ×2 (08:52→20:21)
[2019-01-21] MEDS: SILDENAFIL 20 MG (REVATIO) TAB NON-FORMULARY PO SCH ×3 (08:53→20:21)
[2019-01-21] MEDS: MULTIVIT W/MINERALS TAB (THERAGRAN M) PO SCH (08:53)
[2019-01-21] MEDS: meTOprolol TARTRATE 25 MG (LOPRESSOR) TABLET PO SCH ×2 (08:53→20:21)
[2019-01-21] MEDS: ASCORBIC ACID (VIT C) 500 MG TABLET PO SCH (08:53)
[2019-01-21] MEDS: THIAMINE 100 MG (VITAMIN B-1) TAB PO SCH (08:53)
[2019-01-21] MEDS: LIDOCAINE 4% (SALONPAS) PATCH TOP SCH (08:54)
[2019-01-21] MEDS: SCOPOLAMINE PATCH REMOVAL TP SCH (08:57)
[2019-01-21] MEDS: SCOPOLAMINE 1.5 MG (TRANSDERM-SCOP) PATCH TOP SCH (08:57)
[2019-01-21] MEDS: ONDANSETRON 4 MG/2 ML (SDV) Z0FRAN IVP PRN (09:16)
--- NOTE | 2019-01-21 09:44 | Physical Therapy Daily Note ---
PT Daily Note-Current Subjective Pt. in bed and would like to be up in recliner. States she is on bed amin and needs cleaned. Pain Location: No Pain Reported Mental Status Patient Orientation: Person, Place Attachments: PEG Tube Transfers Therapy Code Descriptions/Definitions Functional [place] Measure: 0=Not Assessed/NA 4=Minimal Assistance 1=Total Assistance 5=Supervision or Setup 2=Maximal Assistance 6=Modified [place] 3=Moderate Assistance 7=Complete [place] Therapy Quality Codes: 6 Independent with activity with or without an assistive device 5 Patient requires set up or clean up by helper. Patient completes activity by themselves 4 Supervision or touching assist (CGA). [place] provide cues , steadying assist 3 The helper provides less than half the effort to complete the activity 2 The helper provides more than half the effort to complete the activity 1 Dependent. The helper does all the effort to complete an activity 7 Patient refused to complete or attempt activity 9 The patient did not perform the activity before the current illness or injury 88 Not attempted due to Medical conditions or safety concerns Transfers (B, C, W/C) (FIM): 1 Scootin Rollin Supine to/from Sit: 2 (HOB up) Bed to/from Chair: 1 radha TRFs Weight Bearing Right Lower Extremity: Right Full Weight Bearing Left Lower Extremity: Left Full Weight Bearing Exercises Supine Ex: Ankle pumps, Rolling (assist), Heel Slides, Straight leg raise, Hip abd/add Supine Reps: 12 Treatments . radha to recliner with pillows for positioniing pt. partially dressed, pt. rolled with instruction, dressed partially with rolling left and right Assessment Current Status: Fair Progress dependent for all PT Short Term Goals Short Term Goals Time Frame: Jan 19, 2019 Transfers (B,C,W/C) (FIM): 3 Gait (FIM): 2 Distance (FIM): 5=568-73 ft Gait Assistive Device: FWW Wheelchair Distance: 50' PT Jail Goals Jail Goals PT Jail Goals Time Frame: Feb 02, 2019 Transfers (B,C,W/C) (FIM): 6 Sit to Lying (QC): 6 Lying-Sitting on Side/Bed(QC): 6 Sit to Stand (QC): 6 Rollin Roll Left to Right (QC): 6 Chair/Scf-pz-Cjdce Xfer(QC): 6 Car Transfer (QC): 5 Does the Patient Walk: No and Walking Goal IS indicated Gait (FIM): 5 Gait distance (FIM): 0=927-93 ft Walk 10 feet (QC): 5 Walk 10ft-Uneven Surface(QC): 5 Walk 50ft with 2 Turns (QC): 5 Walk 150 ft (QC): 4 Gait Assistive Device: FWW Does the Pt use WC or Scooter?: No Stairs (FIM): 2 # of Steps: 4 1 Step (curb) (QC): 5 4 Steps (QC): 4 12 Steps (QC): 88 Picking up an Object (QC): 88 PT Plan Treatment/Plan Treatment Plan: Continue Plan of Care Treatment Plan: Bed Mobility, Education, Functional Activity Ralph, Functional Strength, Group Therapy, Gait, Safety, Therapeutic Exercise, Transfers Treatment Duration: Feb 02, 2019 Frequency: At least 5 of 7 days/Wk (IRF) Estimated Hrs Per Day: 1.5 hours per day Patient and/or Family Agrees t: Yes Safety Risks/Education Patient Education: Transfer Techniques (rolling) Time/GCodes Time In: 815 Time Out: 845 Total Billed Treatment Time: 30 Total Billed Treatment 1,EX10m,FA20m G Codes Necessary: No GARTH MALIN DEGREASING SOLUTION MIXER Jan 21, 2019 09:44
--- NOTE | 2019-01-21 11:26 | NUR ---
Dr. Mcdonald to floor. Informed of nausea this AM after taking morning meds. Orders to place all vitamins on hold.
--- NOTE | 2019-01-21 13:00 | PM&R Progress Note ---
Subjective HPI/CC On Admission Date Seen by Provider: Jan 21, 2019 Time Seen by Provider: 11:30 Chief complaint: Critical illness myopathy HPI: This is a 78yoWF known to me from ICU 9 hospital stay after a massive GI bleed requiring surgery by Dr. Talamantes who was ultimately transferred to [place] on a ventilator, took three weeks to wean off, had trach placed peg tube for tube feedings and has resulted in severe weakness in need of inpatient rehab, she is doing very well, having a speaking valve on her trach and is not capped at this point because she is so fatigued. Dr. Ding is the coordinate measuring equipment operator who is working with her and is not comfortable capping the trach right now. She is eating 25-50% of the meals, she is receiving nocturnal tube feedings to supplement and overall she has severe weakness and will ultimately return home with her to continue recovery after inpatient rehab works on her strength. Subjective/Events-last exam Nausea an issue today and we will hold all vitamins since that seems to be the source PPI PO now along with Carafate PEG maintained until 03/02/19 Trach discontinuation is working very well Patient now up in a chair and looking really good and strong and she likes to be out of bed Removing PEG tube soon by Dr. Acuña after 03/02/19 since it must be healed before it can be DC Loose stools are improved overall Checked med and labs Reviewed therapy notes Conferred with children's nursery assistant of Systems Gastrointestinal: Nausea Objective Exam Vital Signs Vital Signs Date Time Temp Pulse Resp B/P (MAP) Pulse Ox O2 Delivery O2 Flow Rate FiO2 01/21/19 18:24 Room Air 01/21/19 16:33 98.6 84 14 114/68 (83) 95 01/17/19 20:30 6.00 Capillary Refill : Less Than 3 Seconds General Appearance: No Apparent Distress, WD/WN, Chronically ill, Thin HEENT: PERRL/EOMI, Normal ENT Inspection, Pharynx Normal, Moist Mucous Membranes Neck: Full Range of Motion, Normal Inspection, Non Tender, Supple Respiratory: Chest Non Tender, Lungs Clear, No Accessory Muscle Use, No Respiratory Distress, Decreased Breath Sounds Cardiovascular: Regular Rate, Rhythm, No Edema, No Gallop, No JVD, No Murmur Gastrointestinal: Normal Bowel Sounds, No Organomegaly, No Pulsatile Mass, Non Tender, Soft, Other (PEG in place) Back: Normal Inspection, No CVA Tenderness, No Vertebral Tenderness Extremity: Normal Capillary Refill, Normal Inspection, Normal Range of Motion, Non Tender, No Calf Tenderness, No Pedal Edema Neurologic/Psychiatric: Alert, Oriented x3, Normal Mood/Affect, homemaker companion II-XII Norm as Tested, Motor Weakness (3/5 all extremities) Skin: Normal Color, Warm/Dry Lymphatic: No Adenopathy Results/Procedures Lab Patient resulted labs reviewed. FIM Transfers Therapy Code Descriptions/Definitions Functional [place] Measure: 0=Not Assessed/NA 4=Minimal Assistance 1=Total Assistance 5=Supervision or Setup 2=Maximal Assistance 6=Modified [place] 3=Moderate Assistance 7=Complete [place] Therapy Quality Codes: 6 Independent with activity with or without an assistive device 5 Patient requires set up or clean up by helper. Patient completes activity by themselves 4 Supervision or touching assist (CGA). [place] provide cues , steadying assist 3 The helper provides less than half the effort to complete the activity 2 The helper provides more than half the effort to complete the activity 1 Dependent. The helper does all the effort to complete an activity 7 Patient refused to complete or attempt activity 9 The patient did not perform the activity before the current illness or injury 88 Not attempted due to Medical conditions or safety concerns Transfers (B, C, W/C) (FIM): 1 Scootin Rollin Roll Left to Right (QC): 1 Supine to/from Sit: 2 (HOB up) Sit to/from Stand: 2 Sit to Lying (QC): 1 Sit to Stand (QC): 2 Chair/Lnj-vo-Esorv Xfer(QC): 2 Bed to/from Chair: 1 Car Transfer (QC): 88 Gait Training Does the Patient Walk?: No and Walking Goal NOT indicated Gait (FIM): 0 (unable to stand at this time. ) Distance (FIM): 0=does not occure Walk 10 feet (QC): 88 Walk 50 ft with 2 Turns(QC): 88 Walk 150 ft (QC): 88 Walking 10ft/uneven surface-QC: 88 Wheelchair Training Does the Pt Use a Wheelchair?: Yes Wheelchair (FIM): 1 Wheelchair Distance: 1=up to 49 ft (25ftx2) Distance: 50' Wheelchair Level of Assist: 3 Wheel 50 ft with 2 turns (QC): 4 Type of Wheelchair: Manual Stair Training Stairs (FIM): 0 1 Step (curb) (QC): 88 4 Steps (QC): 88 12 Steps (QC): 88 Balance Picking up an Object (QC): 88 Mental Status/Objective Comprehension: 7 Expression: 7 Social Interaction: 7 Problem Solvin Memory: 7 ADL-Treatment Feedin (increase timing to open containers secodnary to decrease FMC ) Eating (QC): 4 Groomin (education on proper seated positioning to increase balance while perofrming grooming pt demo correctly and oerform grooming with SBA ) Oral Hygiene (QC): 4 Bathin (required assist with buttock and fernando. pt education on use of LHS to increas independence. ) Bathing Location: L Arm, R Arm, L Upper Leg, R Upper Leg, L Lower Leg (including foot), R Lower Leg (including foot), Chest, Abdomen Shower/Bathe Self (QC): 4 Upper Extremity Dressin (pull through hooker shirt, increased timing ) Upper Body Dressing (QC): 4 Lower Extremity Dressin (pt educaiton on LB dressing (ayush socks) using AE (clerical support specialist, dressing stick, and sock aid.) pt demo ability to neli/ doff ayush socks using equipemtn X2 with increase timing. ) Lower Body Dressing (QC): 4 On/Off Footwear (QC): 4 Toiletin Toileting Hygiene (QC): 1 Toilet/Commode Transfer: 1 Toilet Transfer (QC): 1 (SB X 2 person assist ) Shower: 1 (SB X 2 person assist ) Assessment/Plan Assessment and Plan Assess & Plan/Chief Complaint Assessment: Myopathy (1) s/p Ventilator dependence Status: Acute (2) s/p Respiratory failure Status: Acute (3) Anemia due to acute blood loss Status: Acute (4) GERD (gastroesophageal reflux disease) Status: Chronic (5) Dementia Status: Chronic (6) s/p Acute GI bleeding Status: Acute (7) Weakness Status: Acute (8) s/p Transfusion of blood during current hospitalization Status: Acute (9) h/o Pyloric ulcer Status: Acute (10) Trach in place (11) PEG in place with TF at night now discontinued and eating 100 percent oral Plan: Monitor closely TF DC and now eating 100% so DC PEG soon per Dr Acuña Continue all meds as ordered Reviewed labs Appreciate Dr Lozada and now we discontinued trach Full code at 's request Unsure of the recoverability of this patient may ultimately need NHP Patient slow to improve but appears to be motivated Check labs prn NHP at [place] 01/25/19 Hold vitamins (1) Myopathy (2) GERD (gastroesophageal reflux disease) (3) Ventilator dependence (4) Hyperkalemia (5) Dementia (6) Pyloric ulcer (7) Tracheostomy in place (8) Transfusion history BO SUÁREZ DO Jan 21, 2019 13:00
[2019-01-21] MEDS ORDERED: ONDANSETRON 4 MG (ZOFRAN) ORAL DISSOLVE TAB PO PRN (13:30)
[2019-01-21] MEDS: ROFLUMILAST 500 MCG TAB (DALIRESP) PO SCH (14:25)
[2019-01-21 16:33] VITALS: BP 114/68
[2019-01-21] MEDS: ENOXAPARIN 40 MG/0.4 ML (LOVENOX) SYR SC SCH (17:26)
[2019-01-21] MEDS: LIDOCAINE PATCH REMOVAL TP SCH (20:21)
[2019-01-22] MEDS: SUCRALFATE 1 GM (CARAFATE) TAB PO SCH ×5 (00:11→23:16)
[2019-01-22 05:50] VITALS: BP 119/62
[2019-01-22] MEDS: HYDROcodone/APAP 7.5 MG/325 MG (LORTAB, LORCET PLUS) TABLET PO PRN ×3 (06:17→20:41)
[2019-01-22] MEDS: NIACIN 500 MG TABLET PO SCH ×2 (06:17→17:39)
[2019-01-22 08:23] VITALS: BP 116/64
[2019-01-22] MEDS: PANTOPRAZOLE 40 MG (PROTONIX) TAB PO SCH (08:24)
[2019-01-22] MEDS: LACTOBACILLUS ACIDOPHILUS (PROBIOTIC) CAPSULE PO SCH ×2 (08:24→20:41)
[2019-01-22] MEDS: meTOprolol TARTRATE 25 MG (LOPRESSOR) TABLET PO SCH ×2 (08:25→20:42)
[2019-01-22] MEDS: SILDENAFIL 20 MG (REVATIO) TAB NON-FORMULARY PO SCH ×3 (08:26→20:42)
[2019-01-22] MEDS: LIDOCAINE 4% (SALONPAS) PATCH TOP SCH (08:26)
[2019-01-22] MEDS: ROFLUMILAST 500 MCG TAB (DALIRESP) PO SCH (13:23)
--- NOTE | 2019-01-22 13:46 | PM&R Progress Note ---
Subjective HPI/CC On Admission Date Seen by Provider: Jan 22, 2019 Time Seen by Provider: 13:00 Chief complaint: Critical illness myopathy HPI: This is a 78yoWF known to me from ICU 9 hospital stay after a massive GI bleed requiring surgery by Dr. Talamantes who was ultimately transferred to [place] on a ventilator, took three weeks to wean off, had trach placed peg tube for tube feedings and has resulted in severe weakness in need of inpatient rehab, she is doing very well, having a speaking valve on her trach and is not capped at this point because she is so fatigued. Dr. Ding is the art therapist who is working with her and is not comfortable capping the trach right now. She is eating 25-50% of the meals, she is receiving nocturnal tube feedings to supplement and overall she has severe weakness and will ultimately return home with her to continue recovery after inpatient rehab works on her strength. Subjective/Events-last exam Nausea no longer an issue since holding all vitamins PPI PO now along with Carafate is maintained due to ulcer bleeds PEG maintained until 03/02/19 Trach discontinuation is working very well Patient now up in a chair and looking really good and strong and she likes to be out of bed Removing PEG tube soon by Dr. Acuña after 03/02/19 since it must be healed before it can be DC Loose stools are improved overall Checked med and labs Reviewed therapy notes Conferred with probate clerk of Systems General: Malaise Objective Exam Vital Signs Vital Signs Date Time Temp Pulse Resp B/P (MAP) Pulse Ox O2 Delivery O2 Flow Rate FiO2 01/22/19 19:25 95 Room Air 01/22/19 16:29 97.4 86 16 121/77 (92) 01/17/19 20:30 6.00 Capillary Refill : Less Than 3 Seconds General Appearance: No Apparent Distress, WD/WN, Chronically ill, Thin HEENT: PERRL/EOMI, Normal ENT Inspection, Pharynx Normal, Moist Mucous Membranes Neck: Full Range of Motion, Normal Inspection, Non Tender, Supple Respiratory: Chest Non Tender, Lungs Clear, No Accessory Muscle Use, No Respiratory Distress, Decreased Breath Sounds Cardiovascular: Regular Rate, Rhythm, No Edema, No Gallop, No JVD, No Murmur Gastrointestinal: Normal Bowel Sounds, No Organomegaly, No Pulsatile Mass, Non Tender, Soft, Other (PEG in place) Back: Normal Inspection, No CVA Tenderness, No Vertebral Tenderness Extremity: Normal Capillary Refill, Normal Inspection, Normal Range of Motion, Non Tender, No Calf Tenderness, No Pedal Edema Neurologic/Psychiatric: Alert, Oriented x3, Normal Mood/Affect, orthotic fitter II-XII Norm as Tested, Motor Weakness (3/5 all extremities) Skin: Normal Color, Warm/Dry Lymphatic: No Adenopathy Results/Procedures Lab Patient resulted labs reviewed. FIM Transfers Therapy Code Descriptions/Definitions Functional [place] Measure: 0=Not Assessed/NA 4=Minimal Assistance 1=Total Assistance 5=Supervision or Setup 2=Maximal Assistance 6=Modified [place] 3=Moderate Assistance 7=Complete [place] Therapy Quality Codes: 6 Independent with activity with or without an assistive device 5 Patient requires set up or clean up by helper. Patient completes activity by themselves 4 Supervision or touching assist (CGA). Oral provide cues , steadying assist 3 The helper provides less than half the effort to complete the activity 2 The helper provides more than half the effort to complete the activity 1 Dependent. The helper does all the effort to complete an activity 7 Patient refused to complete or attempt activity 9 The patient did not perform the activity before the current illness or injury 88 Not attempted due to Medical conditions or safety concerns Transfers (B, C, W/C) (FIM): 1 Scootin Rollin Roll Left to Right (QC): 1 Supine to/from Sit: 2 (HOB up) Sit to/from Stand: 2 Sit to Lying (QC): 1 Sit to Stand (QC): 2 Chair/Dge-tb-Pavog Xfer(QC): 2 Bed to/from Chair: 1 Car Transfer (QC): 88 Gait Training Does the Patient Walk?: No and Walking Goal NOT indicated Gait (FIM): 0 (unable to stand at this time. ) Distance (FIM): 0=does not occure Walk 10 feet (QC): 88 Walk 50 ft with 2 Turns(QC): 88 Walk 150 ft (QC): 88 Walking 10ft/uneven surface-QC: 88 Wheelchair Training Does the Pt Use a Wheelchair?: Yes Wheelchair (FIM): 1 Wheelchair Distance: 1=up to 49 ft (25ftx2) Distance: 50' Wheelchair Level of Assist: 3 Wheel 50 ft with 2 turns (QC): 4 Type of Wheelchair: Manual Stair Training Stairs (FIM): 0 1 Step (curb) (QC): 88 4 Steps (QC): 88 12 Steps (QC): 88 Balance Picking up an Object (QC): 88 Mental Status/Objective Comprehension: 7 Expression: 7 Social Interaction: 7 Problem Solvin Memory: 7 ADL-Treatment Feedin (increase timing to open containers secodnary to decrease FMC ) Eating (QC): 4 Groomin (education on proper seated positioning to increase balance while perofrming grooming pt demo correctly and oerform grooming with SBA ) Oral Hygiene (QC): 4 Bathin (required assist with buttock and fernando. pt education on use of LHS to increas independence. ) Bathing Location: L Arm, R Arm, L Upper Leg, R Upper Leg, L Lower Leg (including foot), R Lower Leg (including foot), Chest, Abdomen Shower/Bathe Self (QC): 4 Upper Extremity Dressin (pick pulling machine tender shirt, increased timing ) Upper Body Dressing (QC): 4 Lower Extremity Dressin (pt educaiton on LB dressing (ayush socks) using AE (duct layer, dressing stick, and sock aid.) pt demo ability to neli/ doff ayush socks using equipemtn X2 with increase timing. ) Lower Body Dressing (QC): 4 On/Off Footwear (QC): 4 Toiletin Toileting Hygiene (QC): 1 Toilet/Commode Transfer: 1 Toilet Transfer (QC): 1 (SB X 2 person assist ) Shower: 1 (SB X 2 person assist ) Assessment/Plan Assessment and Plan Assess & Plan/Chief Complaint Assessment: Myopathy (1) s/p Ventilator dependence Status: Acute (2) s/p Respiratory failure Status: Acute (3) Anemia due to acute blood loss Status: Acute (4) GERD (gastroesophageal reflux disease) Status: Chronic (5) Dementia Status: Chronic (6) s/p Acute GI bleeding Status: Acute (7) Weakness Status: Acute (8) s/p Transfusion of blood during current hospitalization Status: Acute (9) h/o Pyloric ulcer Status: Acute (10) Trach in place (11) PEG in place with TF at night now discontinued and eating 100 percent oral Plan: Monitor closely TF DC and now eating 100% so DC PEG soon per Dr Acuña Continue all meds as ordered Reviewed labs Appreciate Dr Lozada and now we discontinued trach Full code at 's request Unsure of the recoverability of this patient may ultimately need NHP Patient slow to improve but appears to be motivated Check labs prn NHP at [place] 01/25/19 Hold vitamins (1) Myopathy (2) GERD (gastroesophageal reflux disease) (3) Ventilator dependence (4) Hyperkalemia (5) Dementia (6) Pyloric ulcer (7) Tracheostomy in place (8) Transfusion history BO SUÁREZ DO Jan 22, 2019 13:46
[2019-01-22 16:29] VITALS: BP 121/77
[2019-01-22] MEDS: ENOXAPARIN 40 MG/0.4 ML (LOVENOX) SYR SC SCH (17:39)
[2019-01-22 20:40] VITALS: BP 131/75
[2019-01-22] MEDS: LIDOCAINE PATCH REMOVAL TP SCH (20:42)
[2019-01-23] MEDS: HYDROcodone/APAP 7.5 MG/325 MG (LORTAB, LORCET PLUS) TABLET PO PRN ×2 (02:51→12:15)
[2019-01-23 05:35] VITALS: BP 148/76
[2019-01-23] MEDS: NIACIN 500 MG TABLET PO SCH ×2 (05:44→17:27)
[2019-01-23] MEDS: SUCRALFATE 1 GM (CARAFATE) TAB PO SCH ×3 (05:44→17:27)
[2019-01-23 06:50] LABS: BASOPHILS % (AUTO) 0 % (0-10); EOSINOPHILS # (AUTO) 0.4 10^3/uL (0.0-0.3); EOSINOPHILS % (AUTO) 7 % (0-10); HEMATOCRIT 32 % (35-52); HEMOGLOBIN 9.9 G/DL (11.5-16.0); LYMPHOCYTES # (AUTO) 1.3 X 10^3 (1.0-4.0); LYMPHOCYTES % (AUTO) 24 % (12-44); MEAN CORPUSCULAR HEMOGLOBIN 29 PG (25-34); MEAN CORPUSCULAR HGB CONC 31 G/DL (32-36); MEAN CORPUSCULAR VOLUME 91 FL (80-99); MEAN PLATELET VOLUME 8.5 FL (7.4-10.4); MONOCYTES # (AUTO) 0.6 X 10^3 (0.0-1.0); MONOCYTES % (AUTO) 11 % (0-12); NEUTROPHILS % (AUTO) 57 % (42-75); PLATELET COUNT 293 10^3/uL (130-400); RED CELL DISTRIBUTION WIDTH 17.4 % (10.0-14.5); WHITE BLOOD COUNT 5.3 10^3/uL (4.3-11.0)
[2019-01-23 07:18] LABS: ALANINE AMINOTRANSFERASE 22 U/L (0-55); ALBUMIN 3.1 GM/DL (3.2-4.5); ALKALINE PHOSPHATASE 65 U/L (40-136); BILIRUBIN,TOTAL 0.3 MG/DL (0.1-1.0); BUN/CREATININE RATIO 15; CALCIUM 9.1 MG/DL (8.5-10.1); CARBON DIOXIDE 27 MMOL/L (21-32); CHLORIDE 102 MMOL/L (98-107); CREATININE SERUM 0.59 MG/DL (0.60-1.30); GFR ESTIMATED > 60; GLUCOSE 146 MG/DL (70-105); POTASSIUM 2.9 MMOL/L (3.6-5.0); SODIUM 138 MMOL/L (135-145); TOTAL PROTEIN 6.7 GM/DL (6.4-8.2)
--- NOTE | 2019-01-23 09:07 | PM&R Progress Note ---
Subjective HPI/CC On Admission Date Seen by Provider: Jan 23, 2019 Time Seen by Provider: 09:00 Chief complaint: Critical illness myopathy HPI: This is a 78yoWF known to me from ICU 9 hospital stay after a massive GI bleed requiring surgery by Dr. Talamantes who was ultimately transferred to [place] on a ventilator, took three weeks to wean off, had trach placed peg tube for tube feedings and has resulted in severe weakness in need of inpatient rehab, she is doing very well, having a speaking valve on her trach and is not capped at this point because she is so fatigued. Dr. Ding is the lucerne farmer who is working with her and is not comfortable capping the trach right now. She is eating 25-50% of the meals, she is receiving nocturnal tube feedings to supplement and overall she has severe weakness and will ultimately return home with her to continue recovery after inpatient rehab works on her strength. Subjective/Events-last exam She is going to be going to skilled on Wednesday but that is not confirmed yet. No nausea since stopped vitamins. Hgb 9.9, Potassium 2.9 I did start Potassium supplement 10 mEq twice daily. No pain is reported. Overall has a good appetite. Profound weakness continues. Reviewed therapy notes. Conferred with RN. Checked meds and labs. Review of Systems General: Fatigue Objective Exam Vital Signs Vital Signs Date Time Temp Pulse Resp B/P (MAP) Pulse Ox O2 Delivery O2 Flow Rate FiO2 01/23/19 17:25 98.8 89 24 157/73 (101) 95 Room Air 01/17/19 20:30 6.00 Capillary Refill : Less Than 3 Seconds General Appearance: No Apparent Distress, WD/WN, Chronically ill, Thin HEENT: PERRL/EOMI, Normal ENT Inspection, Pharynx Normal, Moist Mucous Membranes Neck: Full Range of Motion, Normal Inspection, Non Tender, Supple Respiratory: Chest Non Tender, Lungs Clear, No Accessory Muscle Use, No Respiratory Distress, Decreased Breath Sounds Cardiovascular: Regular Rate, Rhythm, No Edema, No Gallop, No JVD, No Murmur Gastrointestinal: Normal Bowel Sounds, No Organomegaly, No Pulsatile Mass, Non Tender, Soft, Other (PEG in place) Back: Normal Inspection, No CVA Tenderness, No Vertebral Tenderness Extremity: Normal Capillary Refill, Normal Inspection, Normal Range of Motion, Non Tender, No Calf Tenderness, No Pedal Edema Neurologic/Psychiatric: Alert, Oriented x3, Normal Mood/Affect, water plant maintenance mechanic II-XII Norm as Tested, Motor Weakness (3/5 all extremities) Skin: Normal Color, Warm/Dry Lymphatic: No Adenopathy Results/Procedures Lab Laboratory Tests 01/23/19 06:10 Patient resulted labs reviewed. FIM Transfers Therapy Code Descriptions/Definitions Functional [place] Measure: 0=Not Assessed/NA 4=Minimal Assistance 1=Total Assistance 5=Supervision or Setup 2=Maximal Assistance 6=Modified [place] 3=Moderate Assistance 7=Complete [place] Therapy Quality Codes: 6 Independent with activity with or without an assistive device 5 Patient requires set up or clean up by helper. Patient completes activity by themselves 4 Supervision or touching assist (CGA). [place] provide cues , steadying assist 3 The helper provides less than half the effort to complete the activity 2 The helper provides more than half the effort to complete the activity 1 Dependent. The helper does all the effort to complete an activity 7 Patient refused to complete or attempt activity 9 The patient did not perform the activity before the current illness or injury 88 Not attempted due to Medical conditions or safety concerns Transfers (B, C, W/C) (FIM): 1 Scootin Rollin Roll Left to Right (QC): 1 Supine to/from Sit: 2 (HOB up) Sit to/from Stand: 2 Sit to Lying (QC): 1 Sit to Stand (QC): 2 Chair/Ray-jd-Loavx Xfer(QC): 2 Bed to/from Chair: 1 Car Transfer (QC): 88 Gait Training Does the Patient Walk?: No and Walking Goal NOT indicated Gait (FIM): 0 (unable to stand at this time. ) Distance (FIM): 0=does not occure Walk 10 feet (QC): 88 Walk 50 ft with 2 Turns(QC): 88 Walk 150 ft (QC): 88 Walking 10ft/uneven surface-QC: 88 Wheelchair Training Does the Pt Use a Wheelchair?: Yes Wheelchair (FIM): 1 Wheelchair Distance: 1=up to 49 ft (25ftx2) Distance: 50' Wheelchair Level of Assist: 3 Wheel 50 ft with 2 turns (QC): 4 Type of Wheelchair: Manual Stair Training Stairs (FIM): 0 1 Step (curb) (QC): 88 4 Steps (QC): 88 12 Steps (QC): 88 Balance Picking up an Object (QC): 88 Mental Status/Objective Comprehension: 7 Expression: 7 Social Interaction: 7 Problem Solvin Memory: 7 ADL-Treatment Feedin (increase timing to open containers secodnary to decrease FMC ) Eating (QC): 4 Groomin (education on proper seated positioning to increase balance while perofrming grooming pt demo correctly and oerform grooming with SBA ) Oral Hygiene (QC): 4 Bathin (required assist with buttock and fernando. pt education on use of LHS to increas independence. ) Bathing Location: L Arm, R Arm, L Upper Leg, R Upper Leg, L Lower Leg (including foot), R Lower Leg (including foot), Chest, Abdomen Shower/Bathe Self (QC): 4 Upper Extremity Dressin (ear pull machine operator shirt, increased timing ) Upper Body Dressing (QC): 4 Lower Extremity Dressin (pt educaiton on LB dressing (ayush socks) using AE (overlay operator, dressing stick, and sock aid.) pt demo ability to neli/ doff ayush socks using equipemtn X2 with increase timing. ) Lower Body Dressing (QC): 4 On/Off Footwear (QC): 4 Toiletin Toileting Hygiene (QC): 1 Toilet/Commode Transfer: 1 Toilet Transfer (QC): 1 (SB X 2 person assist ) Shower: 1 (SB X 2 person assist ) Assessment/Plan Assessment and Plan Assess & Plan/Chief Complaint Assessment: Myopathy (1) s/p Ventilator dependence Status: Acute (2) s/p Respiratory failure Status: Acute (3) Anemia due to acute blood loss Status: Acute (4) GERD (gastroesophageal reflux disease) Status: Chronic (5) Dementia Status: Chronic (6) s/p Acute GI bleeding Status: Acute (7) Weakness Status: Acute (8) s/p Transfusion of blood during current hospitalization Status: Acute (9) h/o Pyloric ulcer Status: Acute (10) Trach in place (11) PEG in place with TF at night now discontinued and eating 100 percent oral Plan: Monitor closely TF DC and now eating 100% so DC PEG soon per Dr Acuña after 03/02/19 Continue all meds as ordered Reviewed labs and replacing potassium Appreciate Dr Kierra and now we discontinued trach Full code at 's request Unsure of the recoverability of this patient may ultimately need NHP Patient slow to improve but appears to be motivated Check labs prn NHP at [place] 01/25/19 Hold vitamins (1) Myopathy (2) GERD (gastroesophageal reflux disease) (3) Ventilator dependence (4) Hyperkalemia (5) Dementia (6) Pyloric ulcer (7) Tracheostomy in place (8) Transfusion history BO SUÁREZ DO Jan 23, 2019 09:07
[2019-01-23] MEDS: PANTOPRAZOLE 40 MG (PROTONIX) TAB PO SCH (10:23)
[2019-01-23] MEDS: KCL 10 MEQ TAB (MICRO K) PO SCH ×2 (10:23→17:27)
[2019-01-23] MEDS: meTOprolol TARTRATE 25 MG (LOPRESSOR) TABLET PO SCH ×2 (10:24→20:38)
[2019-01-23] MEDS: SILDENAFIL 20 MG (REVATIO) TAB NON-FORMULARY PO SCH ×3 (10:24→20:38)
[2019-01-23] MEDS: LACTOBACILLUS ACIDOPHILUS (PROBIOTIC) CAPSULE PO SCH ×2 (10:24→20:38)
[2019-01-23] MEDS: LIDOCAINE 4% (SALONPAS) PATCH TOP SCH (10:25)
--- NOTE | 2019-01-23 10:41 | Occupational Ther Daily Note ---
OT Current Status-Daily Note Subjective PT LAYING IN BED UPON ot ARRIVAL INNO APPARENT DISTRESS. PT AGREED TO ot tx SESSION WITH FOCUS ON iNCREASING INDEPENDENCE WITH adlS AND FUNCTIONALS Mental Status/Objective Therapy Code Descriptions/Definitions Functional [place] Measure: 0=Not Assessed/NA 4=Minimal Assistance 1=Total Assistance 5=Supervision or Setup 2=Maximal Assistance 6=Modified [place] 3=Moderate Assistance 7=Complete [place] Attachments: PEG Tube ADL-Treatment Therapy Code Descriptions/Definitions Functional [place] Measure: 0=Not Assessed/NA 4=Minimal Assistance 1=Total Assistance 5=Supervision or Setup 2=Maximal Assistance 6=Modified [place] 3=Moderate Assistance 7=Complete [place] Therapy Quality Codes: 6 Independent with activity with or without an assistive device 5 Patient requires set up or clean up by helper. Patient completes activity by themselves 4 Supervision or touching assist (CGA). [place] provide cues , steadying assist 3 The helper provides less than half the effort to complete the activity 2 The helper provides more than half the effort to complete the activity 1 Dependent. The helper does all the effort to complete an activity 7 Patient refused to complete or attempt activity 9 The patient did not perform the activity before the current illness or injury 88 Not attempted due to Medical conditions or safety concerns Grooming (FIM): 5 (brush teeth, apply deodorant, apply lotion, wash face and hands. noted pt maintinatin static seated balance while sitting in recliner chair. ) Oral Hygiene (QC): 4 Bathing (FIM): 4 (noted use of LHS. required assist with buttock and fernando area) Bathing Location: L Arm, R Arm, L Upper Leg, R Upper Leg, L Lower Leg (including foot), R Lower Leg (including foot), Chest, Abdomen Shower/Bathe Self (QC): 4 Upper Body (FIM): 5 (SBA requiring VC to pull down in back. tier over shirt. ) Upper Body Dressing (QC): 4 Toileting (FIM): 1 Toileting Hygiene (QC): 1 Transfers (B, C, W/C) (FIM): 1 pt incontinent upon OT arrival of urine. pt required assist for cleanup. noted pt demo ability to roll R<> L with MIN A. pt TA for toileting. pt then transfe rred to recliner chair TA. pt transported into bathroom where she completed ADLS. noted increase timing to perform tasks secondary to decrease ayush training program manager strength/ decrease FMC. post OT Session pt sitting in recliner chair., call light within reach, all needs met. Other Treatment pt stated she did not get out of bed yesterday at all. pt education on importance of getting out of bed. pt verbalized understanding. this OT instructed pt and NSG pt must be OOB for all meals Education OT Patient Education: Modified ADL techniques, Progress toward Goal/Update tx plan, Purpose of tx/functional activities, Reviewed precautions, Rehab process, Safety issues, Use of adapted equipment Teaching Recipient: Patient Teaching Methods: Demonstration, Discussion Response to Teaching: Verbalize Understanding, Return Demonstration OT Short Term Goals Short Term Goals Eating(FIM): 3 Grooming(FIM): 3 Bathing(FIM): 3 Upper Body Dressing(FIM): 3 Lower Body Dressing(FIM): 3 Toileting(FIM): 3 Transfers (B,C,W/C) (FIM): 3 Toilet/Commode Transfer(FIM): 3 Shower Transfer(FIM): 3 1=Demonstrate adherence to instructed precautions during ADL tasks. 2=Patient will verbalize/demonstrate understanding of assistive devices/modifications for ADL. 3=Patient will improve strength/tolerance for activity to enable patient to perform ADL's. OT Fpc Goals Glass Products Inspector Goals Time Frame: Feb 07, 2019 Eating (FIM): 6 Eating (QC): 6 Groomin Oral Hygiene (QC): 6 Bathing(FIM): 5 Bathing Location: L Arm, R Arm, L Upper Leg, R Upper Leg, L Lower Leg (including foot), R Lower Leg (including foot), Chest, Abdomen, Buttocks, Perineal Area Shower/Bathe Self (QC): 5 Upper Body Dressing(FIM): 5 Upper Body Dressing (QC): 5 Lower Body Dressing(FIM): 5 Lower Body Dressing (QC): 5 On/Off Footwear (QC): 5 Toileting(FIM): 5 Toileting Hygiene (QC): 5 Transfers (B,C,W/C) (FIM): 5 Toilet/Commode Transfer(FIM): 5 Toilet/Commode Transfer (QC): 5 Shower Transfer(FIM): 5 Additional Goals: 1-Demonstrate ADL Tasks, 2-Verbalize Understanding, 3- ImproveStrength/Ralph 1=Demonstrate adherence to instructed precautions during ADL tasks. 2=Patient will verbalize/demonstrate understanding of assistive devices/modifications for ADL. 3=Patient will improve strength/tolerance for activity to enable patient to perform ADL's. OT Education/Plan Problem List/Assessment Assessment: Decreased Activ Tolerance, Decreased Safety Aware, Decreased UE Strength, Dependent Transfers, Impaired Bed Mobility, Impaired Coordination, Impaired Funct Balance, Impaired I ADL's, Impaired Self-Care Skills pt presents with functional limitations affecting areas of ADLs and functional transfers with the above mention. pt would benefit from skilled OT services to address above mention deficits and to increase independence with ADLs and functional transfers. pt is making progress each day while in therapy. pt i ncrease UE dressing to SBA and Grooming to SBA this date. Discharge Recommendations Plan/Recommendations: Continue POC Treatment Plan/Plan of Care Treatment,Training & Education: Yes Patient would benefit from OT for education, treatment and training to promote independence in ADL's, mobility, safety and/or upper extremity function for ADL's. Plan of Care: ADL Retraining, Caregiver Training, Cognitive Retraining, Concu rrent Therapy, Functional Mobility, Group Exercise/Act as Ind, UE Funct Exercise/Act, W/C Management Training Treatment Duration: Feb 09, 2019 Frequency: At least 5 of 7 days/Wk (IRF) Estimated Hrs Per Day: 1 hour per day (60-90 minutes per day ) Agreement: Yes Rehab Potential: Fair Time/GCodes Start Time: 09:30 Stop Time: 10:15 Billed Treatment Time ADL 45 minutes, 3 units ANGELY CHOUDHURY OT Jan 23, 2019 10:41
--- NOTE | 2019-01-23 11:57 | Physical Therapy Daily Note ---
PT Daily Note-Current Subjective Pt is agreeable to PT session, but declining working on standing this morning stating she is too weak. Pain Numeric Pain Scale: 9 Comment: all over, req pain med from nsg Appearance Pt sitting up chair awake and alert upon arrival Pt requesting pain med from nsg during visit Pt requesting and was assisted in ordering lunch At end of session, pt sitting up in recliner, LE's elevated, call light, phone and bedside table within reach Mental Status Patient Orientation: Person, Place, Time, Eyes Open, Situation Transfers Therapy Code Descriptions/Definitions Functional [place] Measure: 0=Not Assessed/NA 4=Minimal Assistance 1=Total Assistance 5=Supervision or Setup 2=Maximal Assistance 6=Modified [place] 3=Moderate Assistance 7=Complete [place] Therapy Quality Codes: 6 Independent with activity with or without an assistive device 5 Patient requires set up or clean up by helper. Patient completes activity by themselves 4 Supervision or touching assist (CGA). [place] provide cues , steadying assist 3 The helper provides less than half the effort to complete the activity 2 The helper provides more than half the effort to complete the activity 1 Dependent. The helper does all the effort to complete an activity 7 Patient refused to complete or attempt activity 9 The patient did not perform the activity before the current illness or injury 88 Not attempted due to Medical conditions or safety concerns Weight Bearing Right Lower Extremity: Right Full Weight Bearing Left Lower Extremity: Left Full Weight Bearing Exercises Supine Ex: Ankle pumps ((+) toe curls), Quad Set, Glut sets, Heel Slides, Short Arc Quads, Straight leg raise, Hip abd/add Supine Reps: 20 Seated Therapy Exercises: Ankle pumps, Shoulder Flex, Long arc quads, Chair press-ups, Hip flexion, Reaching activity, Hip abd/add Seated Reps: 20 ((+) for strengthening and balance: trunk flex/ext:reaching toward feet and up in air, trunk totation, abdominal curls) AAROM and decreased AROM RLE at times, fatigues with all ex's Treatments chair mobility, strengthening, ROM, strength, balance, activity tolerance, education, instruction, redirection Assessment Pt tolerated with mod fatigue, working on trunk/core strengthening and sitting balance this treatment PT Short Term Goals Short Term Goals Time Frame: Jan 19, 2019 Transfers (B,C,W/C) (FIM): 3 Gait (FIM): 2 Distance (FIM): 7=484-05 ft Gait Assistive Device: FWW Wheelchair Distance: 50' PT Electro Mechanical Technologist Goals Usp Goals PT Usp Goals Time Frame: Feb 02, 2019 Transfers (B,C,W/C) (FIM): 6 Sit to Lying (QC): 6 Lying-Sitting on Side/Bed(QC): 6 Sit to Stand (QC): 6 Rollin Roll Left to Right (QC): 6 Chair/Jal-gk-Fistu Xfer(QC): 6 Car Transfer (QC): 5 Does the Patient Walk: No and Walking Goal IS indicated Gait (FIM): 5 Gait distance (FIM): 4=496-73 ft Walk 10 feet (QC): 5 Walk 10ft-Uneven Surface(QC): 5 Walk 50ft with 2 Turns (QC): 5 Walk 150 ft (QC): 4 Gait Assistive Device: FWW Does the Pt use WC or Scooter?: No Stairs (FIM): 2 # of Steps: 4 1 Step (curb) (QC): 5 4 Steps (QC): 4 12 Steps (QC): 88 Picking up an Object (QC): 88 PT Plan Treatment/Plan Treatment Plan: Continue Plan of Care Treatment Plan: Bed Mobility, Education, Functional Activity Ralph, Functional Strength, Group Therapy, Gait, Safety, Therapeutic Exercise, Transfers Treatment Duration: Feb 02, 2019 Frequency: At least 5 of 7 days/Wk (IRF) Estimated Hrs Per Day: 1.5 hours per day Patient and/or Family Agrees t: Yes Safety Risks/Education Patient Education: Correct Positioning, Safety Issues Teaching Recipient: Patient Teaching Methods: Demonstration, Discussion Response to Teaching: Verbalize Understanding, Return Demonstration, Reinforcement Needed Time/GCodes Time In: 1130 Time Out: 1215 Total Billed Treatment Time: 45 Total Billed Treatment 1, visit, EX x3 units ADOLFO MILLIGAN PTA Jan 23, 2019 11:56
--- NOTE | 2019-01-23 14:00 | NUR ---
NOTICEABLE DETERIORATION IN HEARING SINCE THIS NURSE LAST CARED FOR PATIENT. PATIENT STATES NOT HEARING MUCH FROM LEFT EAR AT ALL. AT BEDSIDE STATES IT HAS BEEN THIS WAY FOR A WEEK. DR. SUÁREZ NOTIFIED AND RECOMMENDED THAT SHE F/U WITH DR. RAMIREZ AFTER DC ON WEDNESDAY FOR HEARING TEST.
[2019-01-23] MEDS: ROFLUMILAST 500 MCG TAB (DALIRESP) PO SCH (14:04)
--- NOTE | 2019-01-23 14:46 | Therapy Group Daily Note ---
Therapy Daily Group Note Patient Education Topic Fall Prevention, Energy Cons, Exercises Exercises LE Seated Exercise, LE Standing Exercise, Sit to/from Stand, ROM, Stretching, Gross Motor, UE Exercise Session Ratio (pt:therapist): 3:1 Goal of Session: Education on ARU Expectations, Energy Conservation Tech., UE/LE Strengthing, Safety with Transfers Goal Met for this Session: Yes Pt Benefit of Group: Contributions to Others, Increased Functional Safety, Increased Functional Strength, Recognition of Peers, Socialization Other/Notes Pt interacted well with group members and participated with group activities to full advantage. pt was motivate to participate in TX session. pt given large dice to roll for reps and lead exercises. UE and LE ther ex performed for gross muscle groups ROM and functional strength for daily activities. pt education on purpose of each ex. ex consist of shoulder flex/ ext/ ABD/ ABB, hip flex/ ADD/ ABD and to promote lung expansion through scapula squeeze, deep breathing, and overhead reach. education provided on deep breathing to reduce the risk of pneumonia. pt also perform 5 X1 sit to stands using RW to increase independence with functional transfer. pt transported back to room. call light within reach, all needs met. Start Time: 12:50 Stop Time: 14:00 Total Billed Treatment GRP 70 MINUTES ANGELY CHOUDHURY OT Jan 23, 2019 14:46
--- NOTE | 2019-01-23 16:10 | Speech Therapy Daily Note ---
Speech Daily Progress Note Subjective Date Seen by Provider: Jan 23, 2019 Time Seen by Provider: 00:30 The patient was resting in her recliner when I entered her room. Objective The patient completed utilization of compensatory strategies as trained at 90% with minimal cues. Assessment Assessment Current Status: Good Progress Treatment Plan Continue Plan of Care Communication Comprehension: 7 Expression: 7 Social Cognition Social Interaction: 7 Problem Solvin Memory: 7 Speech Short Term Goals Short Term Goals Short Term Goals 1) The patient will tolerate the least restrictive diet level without s/s of aspiration at 90% with minimal verbal cues. 2) The patient will utilize compensatory strategies as trained for safe oral intake at 90% or greater with minimal verbal cues. Speech Alf Goals Ornamenter Goals The patient will maintain adequate nutrition/hydration via safe effective swallow function with PEG tube as needed. Speech-Plan Patient/Family Goals Patient/Family Goals: The patient is schduled to discharge to SNF on 01/25/19. Treatment Plan Speech Therapy Treatment Plan: Continue Plan of Care The patient has made good progress as a result of skilled ST services. Treatment Duration: Jan 25, 2019 Frequency: 5 times per week Estimated Hrs Per Day: .5 hour per day Rehab Potential: Fair Barriers to Learning: Patient has had a complex medical status since admission. Pt/Family Agrees to Plan: Yes Safety Risks/Education Teaching Recipient: Patient Teaching Methods: Demonstration, Discussion Response to Teaching: Verbalize Understanding, Return Demonstration Education Topics Provided: Continued safety with oral intake. Time Speech Therapy Time In: 15:30 Speech Therapy Time Out: 16:00 Total Billed Time: 30 Billed Treatment Time 1, SHIRLENE Oconnor Jan 23, 2019 16:10
--- NOTE | 2019-01-23 16:32 | NUR ---
[employer] [facility] received acceptance from [facility] for scheduled discharge on 01/25. The facility does not have a kaci chair for transportation and patient likely will not tolerated a seated position for the duration of the trip. [employer] [facility] [facility] will arrange EMS non- emergent stretcher transport vs. [facility] kaci chair transport.
[2019-01-23 17:25] VITALS: BP 157/73
[2019-01-23] MEDS: ENOXAPARIN 40 MG/0.4 ML (LOVENOX) SYR SC SCH (17:29)
[2019-01-23] MEDS: LIDOCAINE PATCH REMOVAL TP SCH (20:39)
[2019-01-24] MEDS: SUCRALFATE 1 GM (CARAFATE) TAB PO SCH ×5 (00:06→23:36)
[2019-01-24] MEDS: HYDROcodone/APAP 7.5 MG/325 MG (LORTAB, LORCET PLUS) TABLET PO PRN ×4 (02:57→21:10)
[2019-01-24 05:41] VITALS: BP 143/77
[2019-01-24] MEDS: NIACIN 500 MG TABLET PO SCH ×2 (06:01→17:55)
[2019-01-24] MEDS: KCL 10 MEQ TAB (MICRO K) PO SCH ×2 (06:03→17:55)
[2019-01-24] MEDS: PANTOPRAZOLE 40 MG (PROTONIX) TAB PO SCH (07:51)
[2019-01-24] MEDS: SCOPOLAMINE PATCH REMOVAL TP SCH (07:51)
[2019-01-24] MEDS: meTOprolol TARTRATE 25 MG (LOPRESSOR) TABLET PO SCH ×2 (07:52→21:10)
[2019-01-24] MEDS: LACTOBACILLUS ACIDOPHILUS (PROBIOTIC) CAPSULE PO SCH ×2 (07:53→21:09)
[2019-01-24] MEDS: SILDENAFIL 20 MG (REVATIO) TAB NON-FORMULARY PO SCH ×3 (07:54→21:15)
[2019-01-24] MEDS: LIDOCAINE 4% (SALONPAS) PATCH TOP SCH (07:54)
[2019-01-24] MEDS: SCOPOLAMINE 1.5 MG (TRANSDERM-SCOP) PATCH TOP SCH (07:54)
--- NOTE | 2019-01-24 09:53 | PM&R Progress Note ---
Subjective HPI/CC On Admission Date Seen by Provider: Jan 24, 2019 Time Seen by Provider: 09:15 Chief complaint: Critical illness myopathy HPI: This is a 78yoWF known to me from ICU 9 hospital stay after a massive GI bleed requiring surgery by Dr. Talamantes who was ultimately transferred to [place] on a ventilator, took three weeks to wean off, had trach placed peg tube for tube feedings and has resulted in severe weakness in need of inpatient rehab, she is doing very well, having a speaking valve on her trach and is not capped at this point because she is so fatigued. Dr. Ding is the packer dried beef who is working with her and is not comfortable capping the trach right now. She is eating 25-50% of the meals, she is receiving nocturnal tube feedings to supplement and overall she has severe weakness and will ultimately return home with her to continue recovery after inpatient rehab works on her strength. Subjective/Events-last exam Secured placement at [facility] tomorrow. Had a good BM not loose but formed since off tube feedings. No issues or pain is reported. Checked meds and labs. Conferred with RN. Reviewed therapy notes. Review of Systems General: Fatigue, Malaise Objective Exam Vital Signs Vital Signs Date Time Temp Pulse Resp B/P (MAP) Pulse Ox O2 Delivery O2 Flow Rate FiO2 01/24/19 16:41 97.3 95 18 121/72 (88) 97 Room Air Capillary Refill : Less Than 3 Seconds General Appearance: No Apparent Distress, WD/WN, Chronically ill, Thin HEENT: PERRL/EOMI, Normal ENT Inspection, Pharynx Normal, Moist Mucous Membranes Neck: Full Range of Motion, Normal Inspection, Non Tender, Supple Respiratory: Chest Non Tender, Lungs Clear, No Accessory Muscle Use, No Respiratory Distress, Decreased Breath Sounds Cardiovascular: Regular Rate, Rhythm, No Edema, No Gallop, No JVD, No Murmur Gastrointestinal: Normal Bowel Sounds, No Organomegaly, No Pulsatile Mass, Non Tender, Soft, Other (PEG in place) Back: Normal Inspection, No CVA Tenderness, No Vertebral Tenderness Extremity: Normal Capillary Refill, Normal Inspection, Normal Range of Motion, Non Tender, No Calf Tenderness, No Pedal Edema Neurologic/Psychiatric: Alert, Oriented x3, Normal Mood/Affect, aperture mask etcher II-XII Norm as Tested, Motor Weakness (3/5 all extremities) Skin: Normal Color, Warm/Dry Lymphatic: No Adenopathy Results/Procedures Lab Patient resulted labs reviewed. FIM Transfers Therapy Code Descriptions/Definitions Functional [place] Measure: 0=Not Assessed/NA 4=Minimal Assistance 1=Total Assistance 5=Supervision or Setup 2=Maximal Assistance 6=Modified [place] 3=Moderate Assistance 7=Complete [place] Therapy Quality Codes: 6 Independent with activity with or without an assistive device 5 Patient requires set up or clean up by helper. Patient completes activity by themselves 4 Supervision or touching assist (CGA). [place] provide cues , steadying assist 3 The helper provides less than half the effort to complete the activity 2 The helper provides more than half the effort to complete the activity 1 Dependent. The helper does all the effort to complete an activity 7 Patient refused to complete or attempt activity 9 The patient did not perform the activity before the current illness or injury 88 Not attempted due to Medical conditions or safety concerns Transfers (B, C, W/C) (FIM): 1 Scootin Rollin Roll Left to Right (QC): 1 Supine to/from Sit: 2 (HOB up) Sit to/from Stand: 2 Sit to Lying (QC): 1 Sit to Stand (QC): 2 Chair/Dau-ke-Gbamy Xfer(QC): 2 Bed to/from Chair: 1 Car Transfer (QC): 88 Gait Training Does the Patient Walk?: No and Walking Goal NOT indicated Gait (FIM): 0 (unable to stand at this time. ) Distance (FIM): 0=does not occure Walk 10 feet (QC): 88 Walk 50 ft with 2 Turns(QC): 88 Walk 150 ft (QC): 88 Walking 10ft/uneven surface-QC: 88 Wheelchair Training Does the Pt Use a Wheelchair?: Yes Wheelchair (FIM): 1 Wheelchair Distance: 1=up to 49 ft (25ftx2) Distance: 50' Wheelchair Level of Assist: 3 Wheel 50 ft with 2 turns (QC): 4 Type of Wheelchair: Manual Stair Training Stairs (FIM): 0 1 Step (curb) (QC): 88 4 Steps (QC): 88 12 Steps (QC): 88 Balance Picking up an Object (QC): 88 Mental Status/Objective Comprehension: 7 Expression: 7 Social Interaction: 7 Problem Solvin Memory: 7 ADL-Treatment Feedin (increase timing to open containers secodnary to decrease FMC ) Eating (QC): 4 Groomin (brush teeth, apply deodorant, apply lotion, wash face and hands. noted pt maintinatin static seated balance while sitting in recliner chair. ) Oral Hygiene (QC): 4 Bathin (noted use of LHS. required assist with buttock and fernando area) Bathing Location: L Arm, R Arm, L Upper Leg, R Upper Leg, L Lower Leg (including foot), R Lower Leg (including foot), Chest, Abdomen Shower/Bathe Self (QC): 4 Upper Extremity Dressin (SBA requiring VC to pull down in back. lead man over all dies in pattern shop shirt. ) Upper Body Dressing (QC): 4 Lower Extremity Dressin (pt educaiton on LB dressing (ayush socks) using AE (patient care assistant, dressing stick, and sock aid.) pt demo ability to neli/ doff ayush socks using equipemtn X2 with increase timing. ) Lower Body Dressing (QC): 4 On/Off Footwear (QC): 4 Toiletin Toileting Hygiene (QC): 1 Toilet/Commode Transfer: 1 Toilet Transfer (QC): 1 (SB X 2 person assist ) Shower: 1 (SB X 2 person assist ) Assessment/Plan Assessment and Plan Assess & Plan/Chief Complaint Assessment: Myopathy (1) s/p Ventilator dependence Status: Acute (2) s/p Respiratory failure Status: Acute (3) Anemia due to acute blood loss Status: Acute (4) GERD (gastroesophageal reflux disease) Status: Chronic (5) Dementia Status: Chronic (6) s/p Acute GI bleeding Status: Acute (7) Weakness Status: Acute (8) s/p Transfusion of blood during current hospitalization Status: Acute (9) h/o Pyloric ulcer Status: Acute (10) Trach in place (11) PEG in place with TF at night now discontinued and eating 100 percent oral Plan: Monitor closely TF DC and now eating 100% so DC PEG soon per Dr Acuña after 03/02/19 Continue all meds as ordered Reviewed labs and replacing potassium Appreciate Dr Lozada and now we discontinued trach Full code at 's request Unsure of the recoverability of this patient but needs NHP Patient slow to improve but appears to be motivated NHP at DC 01/25/19 Hold vitamins (1) Myopathy (2) GERD (gastroesophageal reflux disease) (3) Ventilator dependence (4) Hyperkalemia (5) Dementia (6) Pyloric ulcer (7) Tracheostomy in place (8) Transfusion history BO SUÁREZ DO Jan 24, 2019 09:53
--- NOTE | 2019-01-24 10:29 | Occupational Ther Daily Note ---
OT Current Status-Daily Note Subjective pt laying in bed upon OT arrival. pt c/o no pain. pt agreed to OT TX session with focus on increasing independence with ADLS. Pain Numeric Pain Scale: 0-No Pain Mental Status/Objective Patient Orientation: Normal For Age Therapy Code Descriptions/Definitions Functional [place] Measure: 0=Not Assessed/NA 4=Minimal Assistance 1=Total Assistance 5=Supervision or Setup 2=Maximal Assistance 6=Modified [place] 3=Moderate Assistance 7=Complete [place] Attachments: PEG Tube ADL-Treatment Therapy Code Descriptions/Definitions Functional [place] Measure: 0=Not Assessed/NA 4=Minimal Assistance 1=Total Assistance 5=Supervision or Setup 2=Maximal Assistance 6=Modified [place] 3=Moderate Assistance 7=Complete [place] Therapy Quality Codes: 6 Independent with activity with or without an assistive device 5 Patient requires set up or clean up by helper. Patient completes activity by themselves 4 Supervision or touching assist (CGA). [place] provide cues , steadying assist 3 The helper provides less than half the effort to complete the activity 2 The helper provides more than half the effort to complete the activity 1 Dependent. The helper does all the effort to complete an activity 7 Patient refused to complete or attempt activity 9 The patient did not perform the activity before the current illness or injury 88 Not attempted due to Medical conditions or safety concerns Eating (FIM): 6 (pr requies increase timin tto open containers. ) Eating (QC): 6 Grooming (FIM): 5 (pt requies set up of items. pt perform: washing face and h amds, washing hair, combin ghhair, and applying deodorant with increased timing secondary to decrease FMC) Oral Hygiene (QC): 5 Bathing (FIM): 4 (use of LHS. pt reuqired cuing to wash all body parts. pt seated sduring bathing and required assist to was buttock) Bathing Location: L Arm, R Arm, L Upper Leg, R Upper Leg, L Lower Leg (including foot), R Lower Leg (including foot), Chest, Abdomen, Perineal Area Shower/Bathe Self (QC): 3 Upper Body (FIM): 5 (set up of shirt and cuing to pull down dress. ) Upper Body Dressing (QC): 4 Lower Body Dressing (FIM): 4 (pt able to thread ayush LE in pants, pu t requires assist to pull up. pt demo ability to neli and doff ayush socks with SBA requiing VC for use of AE (warehouse insulation worker, sock aid, dressing stick) ) Lower Body Dressing (QC): 3 On/Off Footwear (QC): 5 Toileting (FIM): 1 (requires assist with all task. pt is incontinant) Toileting Hygiene (QC): 1 Transfers (B, C, W/C) (FIM): 1 (radha lift ) Toilet/Commode Transfer (FIM): 1 (radha lift ) Toilet Transfer (QC): 1 (radha lift ) Tub Transfer(FIM): 0 (NT secodnary to safety ) Shower Transfer(FIM): 1 (radha lift ) pt required heavy cuing throughout session for use of A/ utilizing skilled techniques. barriers to ADLS: decrease activity tolerance, decrease FMC, and cesspool cleaner strength. Other Treatment dynamometer: RUE av# LUE av# Education OT Patient Education: Correct positioning, Energy conservation, Modified ADL techniques, Progress toward Goal/Update tx plan, Purpose of tx/functional activities, Reviewed precautions, Rehab process, Safety issues, Transfer techniques, Use of adapted equipment Teaching Recipient: Patient Teaching Methods: Demonstration, Discussion Response to Teaching: Verbalize Understanding, Return Demonstration OT Short Term Goals Short Term Goals Eating(FIM): 3 Grooming(FIM): 3 Bathing(FIM): 3 Upper Body Dressing(FIM): 3 Lower Body Dressing(FIM): 3 Toileting(FIM): 3 Transfers (B,C,W/C) (FIM): 3 Toilet/Commode Transfer(FIM): 3 Shower Transfer(FIM): 3 1=Demonstrate adherence to instructed precautions during ADL tasks. 2=Patient will verbalize/demonstrate understanding of assistive devices/modifications for ADL. 3=Patient will improve strength/tolerance for activity to enable patient to perform ADL's. OT Egg Candler Goals Assisted Goals Time Frame: Feb 07, 2019 Eating (FIM): 6 (MET) Eating (QC): 6 (MET ) Groomin (NOT MET ) Oral Hygiene (QC): 6 (NOT MET ) Bathing(FIM): 5 (NOT MET ) Bathing Location: L Arm, R Arm, L Upper Leg, R Upper Leg, L Lower Leg (including foot), R Lower Leg (including foot), Chest, Abdomen, Buttocks, Per ineal Area Shower/Bathe Self (QC): 5 (NOT MET ) Upper Body Dressing(FIM): 5 (MET) Upper Body Dressing (QC): 5 (NOT MET ) Lower Body Dressing(FIM): 5 (NOT MET ) Lower Body Dressing (QC): 5 (NOT MET ) On/Off Footwear (QC): 5 (NOT MET ) Toileting(FIM): 5 (NOT MET ) Toileting Hygiene (QC): 5 (NOT MET ) Transfers (B,C,W/C) (FIM): 5 (NOT MET ) Toilet/Commode Transfer(FIM): 5 (NOT MET ) Toilet/Commode Transfer (QC): 5 (NOT MET ) Shower Transfer(FIM): 5 (NOT MET ) Additional Goals: 1-Demonstrate ADL Tasks, 2-Verbalize Understanding, 3- ImproveStrength/Ralph 1=Demonstrate adherence to instructed precautions during ADL tasks. 2=Patient will verbalize/demonstrate understanding of assistive devices/modifications for ADL. 3=Patient will improve strength/tolerance for activity to enable patient to perform ADL's. OT Education/Plan Problem List/Assessment Assessment: Decreased Activ Tolerance, Decreased Safety Aware, Decreased UE Strength, Dependent Transfers, Impaired Bed Mobility, Impaired Cognition, Impaired Coordination, Impaired Funct Balance, Impaired I ADL's, Impaired Self- Care Skills pt presents with functional limitations affecting areas of ADLs and functional transfers with the above mention. pt would benefit from skilled OT services to address above mention deficits and to increase independence with ADLs and functional transfers. noted increase cesspool cleaner strength with dynamometer. LUE 16# RUE 15# Discharge Recommendations Plan/Recommendations: Continue POC Therapy D/C Recommendations: 24 hr Supervision, Long-Term (TCU/NH) Treatment Plan/Plan of Care Treatment,Training & Education: Yes Patient would benefit from OT for education, treatment and training to promote independence in ADL's, mobility, safety and/or upper extremity function for ADL's. Plan of Care: ADL Retraining, Caregiver Training, Cognitive Retraining, Concurrent Therapy, Functional Mobility, Group Exercise/Act as Ind, UE Funct Exercise/Act, W/C Management Training Treatment Duration: Feb 09, 2019 Frequency: At least 5 of 7 days/Wk (IRF) Estimated Hrs Per Day: 1 hour per day (60-90 minutes per day ) Agreement: Yes Rehab Potential: Fair Time/GCodes Start Time: 09:30 Stop Time: 10:45 Billed Treatment Time ADL 5 units, 75 minutes ANGELY CHOUDHURY OT Jan 24, 2019 10:29
--- NOTE | 2019-01-24 12:15 | Physical Therapy Daily Note ---
PT Daily Note-Current Subjective Pt agreeable to PT session. States she is feeling very weak and can't do much. States she is too weak to stand. Pain Numeric Pain Scale: 9 Comment: "all over", requested pain med from nsg Appearance Pt sitting up in recliner awake and alert upon arrival At end of session, pt in recliner with LE's elevated, call light and bedside table within reach Mental Status Patient Orientation: Person, Place, Time, Eyes Open, Situation Transfers Therapy Code Descriptions/Definitions Functional [place] Measure: 0=Not Assessed/NA 4=Minimal Assistance 1=Total Assistance 5=Supervision or Setup 2=Maximal Assistance 6=Modified [place] 3=Moderate Assistance 7=Complete [place] Therapy Quality Codes: 6 Independent with activity with or without an assistive device 5 Patient requires set up or clean up by helper. Patient completes activity by themselves 4 Supervision or touching assist (CGA). [place] provide cues , steadying assist 3 The helper provides less than half the effort to complete the activity 2 The helper provides more than half the effort to complete the activity 1 Dependent. The helper does all the effort to complete an activity 7 Patient refused to complete or attempt activity 9 The patient did not perform the activity before the current illness or injury 88 Not attempted due to Medical conditions or safety concerns Transfers (B, C, W/C) (FIM): 1 Scootin Rollin Roll Left to Right (QC): 3 Supine to/from Sit: 3 Sit to/from Stand: 1 (Dependent when attempted, otherwise using radha lift) Sit to Lying (QC): 3 Sit to Stand (QC): 1 (dependent when attempted, otherwise use of radha lift) Chair/Dzx-ts-Pjeuj Xfer(QC): 1 Bed to/from Chair: 1 Car Transfer (QC): 1 pt is dependent with sit to and from stand transfers from chair, EOB, commode and car, therefor radha is used Weight Bearing Right Lower Extremity: Right Full Weight Bearing Left Lower Extremity: Left Full Weight Bearing Wheelchair Training Does the Pt Use a Wheelchair?: Yes Wheelchair (FIM): 2 Wheelchair Distance: 3=120-62 ft Distance: 60 Wheelchair Level of Assist: 4 Wheel 50 ft with 2 turns (QC): 4 Type of Wheelchair: Manual fatigues easily, min A with turns at times and after fatigue Balance Picking up an Object (QC): 4 (Pt able to pick object up off floor beside each foot while sitting in chair with CGA for safety, without LOB) Exercises Supine Ex: Ankle pumps, Quad Set, Rolling, Glut sets, Lower trunk rotation, Heel Slides, Short Arc Quads, Scooting, Straight leg raise, Hip abd/add Supine Reps: 20 (decreased ROM, occasional AAROM required) Seated Therapy Exercises: Ankle pumps, Long arc quads, Chair press-ups, Hip flexion, Reaching activity, Hip abd/add Seated Reps: 20 (decreased ROM, occasional AAROM required) Treatments strengthening, sitting balance ROM, activity tolerance, FIM scoring Assessment Max encouragement to attempt to perform activities except for sitting ex's with pt stating she is just too weak to be able to do it. PT Short Term Goals Short Term Goals Time Frame: Jan 19, 2019 Transfers (B,C,W/C) (FIM): 3 Gait (FIM): 2 Distance (FIM): 4=335-39 ft Gait Assistive Device: FWW Wheelchair Distance: 50' PT Skilled Nursing Goals Data Typist Goals PT Data Typist Goals Time Frame: Feb 02, 2019 Transfers (B,C,W/C) (FIM): 6 Sit to Lying (QC): 6 Lying-Sitting on Side/Bed(QC): 6 Sit to Stand (QC): 6 Rollin Roll Left to Right (QC): 6 Chair/Hce-zm-Ogend Xfer(QC): 6 Car Transfer (QC): 5 Does the Patient Walk: No and Walking Goal IS indicated Gait (FIM): 5 Gait distance (FIM): 5=023-31 ft Walk 10 feet (QC): 5 Walk 10ft-Uneven Surface(QC): 5 Walk 50ft with 2 Turns (QC): 5 Walk 150 ft (QC): 4 Gait Assistive Device: FWW Does the Pt use WC or Scooter?: No Stairs (FIM): 2 # of Steps: 4 1 Step (curb) (QC): 5 4 Steps (QC): 4 12 Steps (QC): 88 Picking up an Object (QC): 88 PT Plan Treatment/Plan Treatment Plan: Continue Plan of Care Treatment Plan: Bed Mobility, Education, Functional Activity Ralph, Functional Strength, Group Therapy, Gait, Safety, Therapeutic Exercise, Transfers Treatment Duration: Feb 02, 2019 Frequency: At least 5 of 7 days/Wk (IRF) Estimated Hrs Per Day: 1.5 hours per day Patient and/or Family Agrees t: Yes Safety Risks/Education Patient Education: Transfer Techniques, W/C Management, Safety Issues Teaching Recipient: Patient Teaching Methods: Demonstration, Discussion Response to Teaching: Verbalize Understanding, Unable to Return Demonstration, Reinforcement Needed Time/GCodes Time In: 1200 Time Out: 1245 Total Billed Treatment Time: 45 Total Billed Treatment 1 visit, FA x2 units, EX x1 unit ADOLFO MILLIGAN APPARATUS OPERATOR Jan 24, 2019 12:15
--- NOTE | 2019-01-24 15:00 | Occupational Ther Daily Note ---
OT Current Status-Daily Note Subjective pt sitting in recliner chair upon OT arrival. pt agreed to OT TX session with focus in increasing activity tolerance and FMC. Pain Numeric Pain Scale: 0-No Pain Mental Status/Objective Therapy Code Descriptions/Definitions Functional [place] Measure: 0=Not Assessed/NA 4=Minimal Assistance 1=Total Assistance 5=Supervision or Setup 2=Maximal Assistance 6=Modified [place] 3=Moderate Assistance 7=Complete [place] ADL-Treatment Therapy Code Descriptions/Definitions Functional [place] Measure: 0=Not Assessed/NA 4=Minimal Assistance 1=Total Assistance 5=Supervision or Setup 2=Maximal Assistance 6=Modified [place] 3=Moderate Assistance 7=Complete [place] Therapy Quality Codes: 6 Independent with activity with or without an assistive device 5 Patient requires set up or clean up by helper. Patient completes activity by themselves 4 Supervision or touching assist (CGA). [place] provide cues , steadying assist 3 The helper provides less than half the effort to complete the activity 2 The helper provides more than half the effort to complete the activity 1 Dependent. The helper does all the effort to complete an activity 7 Patient refused to complete or attempt activity 9 The patient did not perform the activity before the current illness or injury 88 Not attempted due to Medical conditions or safety concerns Other Treatment pt transported to TX gym and perform UBE 15 minutes forward with rest breaks throughout secondary to activity tolerance. pt then given yellow and red close pins to increase FMC/ FM grasp. pt demo ability to place 5 close pins on tool bar with increase timing secondary to decrease pinch grasp. pt then transported back to room. pt sitting in recliner chair post session. call light within reach, all needs met. Education OT Patient Education: Progress toward Goal/Update tx plan, Purpose of tx/functional activities Teaching Recipient: Patient Teaching Methods: Demonstration, Discussion Response to Teaching: Verbalize Understanding, Return Demonstration OT Short Term Goals Short Term Goals Eating(FIM): 3 Grooming(FIM): 3 Bathing(FIM): 3 Upper Body Dressing(FIM): 3 Lower Body Dressing(FIM): 3 Toileting(FIM): 3 Transfers (B,C,W/C) (FIM): 3 Toilet/Commode Transfer(FIM): 3 Shower Transfer(FIM): 3 1=Demonstrate adherence to instructed precautions during ADL tasks. 2=Patient will verbalize/demonstrate understanding of assistive devices/modifications for ADL. 3=Patient will improve strength/tolerance for activity to enable patient to perform ADL's. OT Waiter/Waitress Tavern Goals Waiter/Waitress Tavern Goals Time Frame: Feb 07, 2019 Eating (FIM): 6 (MET) Eating (QC): 6 (MET ) Groomin (NOT MET ) Oral Hygiene (QC): 6 (NOT MET ) Bathing(FIM): 5 (NOT MET ) Bathing Location: L Arm, R Arm, L Upper Leg, R Upper Leg, L Lower Leg (including foot), R Lower Leg (including foot), Chest, Abdomen, Buttocks, Perineal Area Shower/Bathe Self (QC): 5 (NOT MET ) Upper Body Dressing(FIM): 5 (MET) Upper Body Dressing (QC): 5 (NOT MET ) Lower Body Dressing(FIM): 5 (NOT MET ) Lower Body Dressing (QC): 5 (NOT MET ) On/Off Footwear (QC): 5 (NOT MET ) Toileting(FIM): 5 (NOT MET ) Toileting Hygiene (QC): 5 (NOT MET ) Transfers (B,C,W/C) (FIM): 5 (NOT MET ) Toilet/Commode Transfer(FIM): 5 (NOT MET ) Toilet/Commode Transfer (QC): 5 (NOT MET ) Shower Transfer(FIM): 5 (NOT MET ) Additional Goals: 1-Demonstrate ADL Tasks, 2-Verbalize Understanding, 3- ImproveStrength/Ralph 1=Demonstrate adherence to instructed precautions during ADL tasks. 2=Patient will verbalize/demonstrate understanding of assistive devices/modifica tions for ADL. 3=Patient will improve strength/tolerance for activity to enable patient to perform ADL's. OT Education/Plan Problem List/Assessment Assessment: Decreased Activ Tolerance, Decreased Safety Aware, Decreased UE Strength, Dependent Transfers, Impaired Bed Mobility, Impaired Coordination, Impaired Funct Balance, Impaired I ADL's, Impaired Self-Care Skills pt presents with functional limitations affecting areas of ADLs and functional transfers with the above mention. pt would benefit from skilled OT services to address above mention deficits and to increase independence with ADLs and functional transfers. noted increase calliope player strength with dynamometer. LUE 16# RUE 15# Discharge Recommendations Plan/Recommendations: Continue POC Therapy D/C Recommendations: Fdc (TCU/NH) Treatment Plan/Plan of Care Treatment,Training & Education: Yes Patient would benefit from OT for education, treatment and training to promote independence in ADL's, mobility, safety and/or upper extremity function for ADL's. Plan of Care: ADL Retraining, Caregiver Training, Cognitive Retraining, Concurrent Therapy, Functional Mobility, Group Exercise/Act as Ind, UE Funct Exercise/Act, W/C Management Training Treatment Duration: Feb 09, 2019 Frequency: At least 5 of 7 days/Wk (IRF) Estimated Hrs Per Day: 1 hour per day (60-90 minutes per day ) Agreement: Yes Rehab Potential: Fair Time/GCodes Start Time: 14:15 Stop Time: 14:45 Billed Treatment Time FA, 30 minutes, 2 units ANGELY CHOUDHURY OT Jan 24, 2019 15:00
[2019-01-24] MEDS: ROFLUMILAST 500 MCG TAB (DALIRESP) PO SCH (15:37)
--- NOTE | 2019-01-24 15:40 | Speech Therapy Daily Note ---
Speech Daily Progress Note Subjective Date Seen by Provider: Jan 24, 2019 Time Seen by Provider: 00:30 The patient was resting in her recliner after just finishing working with OT. Objective The patient is utilizing compensatory strategies as trained with 90% accuracy and no verbal cues. Assessment Assessment Current Status: Good Progress Communication Comprehension: 7 Expression: 7 Social Cognition Social Interaction: 7 Problem Solvin Memory: 7 Speech Short Term Goals Short Term Goals Short Term Goals 1) The patient will tolerate the least restrictive diet level without s/s of aspiration at 90% with minimal verbal cues. 2) The patient will utilize compensatory strategies as trained for safe oral intake at 90% or greater with minimal verbal cues. Speech Mcc Goals Mcc Goals The patient will maintain adequate nutrition/hydration via safe effective swallow function with PEG tube as needed. Speech-Plan Patient/Family Goals Patient/Family Goals: The patient will be discharged to the SNF on 01/25/2019 for continued therapy. Treatment Plan Speech Therapy Treatment Plan: Discontinue ST, Goals Met The patient has made good progress as a result of skilled ST services. Treatment Duration: Jan 26, 2019 Frequency: 5 times per week Estimated Hrs Per Day: .5 hour per day Rehab Potential: Fair Barriers to Learning: The patient has had a complex medical status for quite some time. Pt/Family Agrees to Plan: Yes Safety Risks/Education Teaching Recipient: Patient Teaching Methods: Discussion Response to Teaching: Verbalize Understanding Education Topics Provided: Continued safety with oral intake upon discharge. Time Speech Therapy Time In: 15:00 Speech Therapy Time Out: 15:30 Total Billed Time: 30 Billed Treatment Time 1, DYST SHIRLENE Gunn Jan 24, 2019 15:40
[2019-01-24 16:41] VITALS: BP 121/72
[2019-01-24] MEDS: ENOXAPARIN 40 MG/0.4 ML (LOVENOX) SYR SC SCH (17:55)
[2019-01-24] MEDS: LIDOCAINE PATCH REMOVAL TP SCH (21:10)
[2019-01-25] MEDS: HYDROcodone/APAP 7.5 MG/325 MG (LORTAB, LORCET PLUS) TABLET PO PRN (05:02)
[2019-01-25] MEDS: SUCRALFATE 1 GM (CARAFATE) TAB PO SCH ×2 (05:02→11:49)
[2019-01-25 05:55] VITALS: BP 128/68
[2019-01-25] MEDS: NIACIN 500 MG TABLET PO SCH (06:33)
[2019-01-25] MEDS: KCL 10 MEQ TAB (MICRO K) PO SCH (06:34)
[2019-01-25] MEDS: PANTOPRAZOLE 40 MG (PROTONIX) TAB PO SCH (08:45)
[2019-01-25] MEDS: LACTOBACILLUS ACIDOPHILUS (PROBIOTIC) CAPSULE PO SCH (08:45)
[2019-01-25] MEDS: meTOprolol TARTRATE 25 MG (LOPRESSOR) TABLET PO SCH (08:46)
[2019-01-25] MEDS: LIDOCAINE 4% (SALONPAS) PATCH TOP SCH (08:46)
[2019-01-25] MEDS: SILDENAFIL 20 MG (REVATIO) TAB NON-FORMULARY PO SCH ×2 (08:46→12:08)
[2019-01-25 08:47] VITALS: BP 125/75
[2019-01-25] MEDS ORDERED: SILD20TA14 PO (09:33)
[2019-01-25] MEDS ORDERED: ONDA4TAB11 PO (09:33)
[2019-01-25] MEDS ORDERED: IPRA3AMP31 IH (09:33)
[2019-01-25] MEDS ORDERED: SUCR1TAB PO (09:33)
[2019-01-25] MEDS ORDERED: ENOX40DI8 SC (09:33)
[2019-01-25] MEDS ORDERED: LACT1CAP7 PO (09:33)
[2019-01-25] MEDS ORDERED: HYDR-34 PO (09:33)
[2019-01-25] MEDS ORDERED: Lidocaine 4% Patch TOP (09:33)
[2019-01-25] MEDS ORDERED: METO-333 PO (09:33)
[2019-01-25] MEDS ORDERED: SODI650T PEG (09:33)
[2019-01-25] MEDS ORDERED: ROFL500T PO (09:33)
[2019-01-25] MEDS ORDERED: PANT40TA3 PO (09:33)
--- NOTE | 2019-01-25 09:35 | Discharge Inst-Skilled Nursing ---
Discharge Inst-Skilled NF Patient Instructions Patient Problems: Severe weakness Trach PEG Goal: Independent living Consult/Follow Up/Orders Follow Up Appt.: Dr Ruggiero in 1 week Skilled NF Admit to: Certification (SNF) I certify that SNF services are required to be given on an inpatient basis because of the above named patient's need for custodial care on a continuing basis for the conditions(s) for which he/she was receiving inpatient hospital services prior to his/her transfer to the SNF. Snf Facility Order: Nursing Services, Assistant Hall Director-Evaluate & Treat, Physical Therapy-Evaluate & Treat, Speech Language-Evaluate & Treat Oxygen Delivery Method: Room Air Discharge Diet: No Restrictions Daily Activity as Tolerated: Yes New & Resume Previous Orders Charito Mcdonald Jan 25, 2019 09:34 CHARITO MCDONALD DO Jan 25, 2019 09:35
--- NOTE | 2019-01-25 09:36 | Discharge Summary ---
Diagnosis/Chief Complaint Date of Admission Jan 05, 2019 at 10:35 Date of Discharge Discharge Date: Jan 25, 2019 Discharge Diagnosis Assessment: Myopathy (1) s/p Ventilator dependence Status: Acute (2) s/p Respiratory failure Status: Acute (3) Anemia due to acute blood loss Status: Acute (4) GERD (gastroesophageal reflux disease) Status: Chronic (5) Dementia Status: Chronic (6) s/p Acute GI bleeding Status: Acute (7) Weakness Status: Acute (8) s/p Transfusion of blood during current hospitalization Status: Acute (9) h/o Pyloric ulcer Status: Acute (10) Trach in place (11) PEG in place with TF at night now discontinued and eating 100 percent oral Plan: Monitor closely TF DC and now eating 100% so DC PEG soon per Dr Acuña after 03/02/19 Continue all meds as ordered Reviewed labs and replacing potassium Appreciate Dr Lozada and now we discontinued trach Full code at 's request Unsure of the recoverability of this patient but needs NHP Patient slow to improve but appears to be motivated NHP at DC 01/25/19 Hold vitamins Discharge Summary Discharge Physical Examination Allergies: Uncoded Allergies: UNKNOWN BLADDER MED (Allergy, Unknown, 10/03/18) none (Adverse Reaction, Unknown, 08/20/14) Vitals & I&Os Vital Signs Date Time Temp Pulse Resp B/P (MAP) Pulse Ox O2 Delivery O2 Flow Rate FiO2 01/25/19 12:15 83 18 140/70 98 Room Air 01/25/19 11:53 98.0 General Appearance: Alert, Oriented X3, Cooperative, No Acute Distress Respiratory: Clear to Auscultation, Normal Air Movement Cardiovascular: Regular Rate, Normal S1, Normal S2 Skin: No Rashes Neuro: Strength at 5/5 X4 Ext, Normal Tone, Cranial Nerves 3-12 NL Psych/Mental Status: Mental Status NL, Mood NL Hospital Course Was the Problem List Reviewed?: Yes Hospital course: Pt had a lengthy hospital course for 20 days in inpatient rehab, she did require going to skilled therapy because she is a maximum assist with Dina lift, but she did make progress while she was in inpatient rehab. Dr. Mitchell will be consulted for hearing loss noted the last few days of hospital stay and PCP Dr. Ruggiero will be notified of admission into [facility] in [place]. Dr. Javier did assist on the right calf decubitis ulcer and Dr. Lozada facilitated removal of the trach and Dr. Acuña will be in the process of removing the peg tube that she is no longer using but has to wait for 12 weeks before removal to decrease the amount of infection that could be at risk in occurring. Overall she was able to become stronger, less of a burden to [facility] staff and was eating and drinking and will be able to discontinue the peg tube within a few more weeks. Labs (last 24 hrs) Laboratory Tests 01/05/19 11:30: Glucometer 153H 01/05/19 13:32: White Blood Count 8.5, Red Blood Count 3.27L, Hemoglobin 9.0L, Hematocrit 30L, Mean Corpuscular Volume 91, Mean Corpuscular Hemoglobin 28, Mean Corpuscular Hemoglobin Concent 30L, Red Cell Distribution Width 16.4H, Platelet Count 334, Mean Platelet Volume 8.5, Sodium Level 138, Potassium Level 5.2H, Chloride Level 101, Carbon Dioxide Level 28, Anion Gap 9, Blood Urea Nitrogen 23H, Creatinine 0.70, Estimat Glomerular Filtration Rate > 60, BUN/Creatinine Ratio 33, Glucose Level 204H, Calcium Level 9.9, Phosphorus Level 2.6, Magnesium Level 1.6L, B- Type Natriuretic Peptide 43.9 01/05/19 15:37: Glucometer 156H 01/05/19 21:17: Glucometer 193H 01/06/19 05:31: White Blood Count 7.8, Red Blood Count 3.25L, Hemoglobin 9.1L, Hematocrit 30L, Mean Corpuscular Volume 91, Mean Corpuscular Hemoglobin 28, Mean Corpuscular Hemoglobin Concent 31L, Red Cell Distribution Width 16.5H, Platelet Count 330, Mean Platelet Volume 8.6, Sodium Level 137, Potassium Level 4.3, Chloride Level 100, Carbon Dioxide Level 25, Anion Gap 12, Blood Urea Nitrogen 22H, Creatinine 0.65, Estimat Glomerular Filtration Rate > 60, BUN/Creatinine Ratio 34, Glucose Level 177H, Calcium Level 9.5, Phosphorus Level 3.5, Magnesium Level 2.1 01/06/19 06:23: Glucometer 190H 01/06/19 11:49: Glucometer 160H 01/06/19 16:25: Glucometer 111H 01/06/19 21:16: Glucometer 164H 01/07/19 05:27: Glucometer 217H 01/07/19 05:37: White Blood Count 7.7, Red Blood Count 3.20L, Hemoglobin 9.0L, Hematocrit 29L, Mean Corpuscular Volume 90, Mean Corpuscular Hemoglobin 28, Mean Corpuscular Hemoglobin Concent 31L, Red Cell Distribution Width 16.7H, Platelet Count 358, Mean Platelet Volume 8.9, Phosphorus Level 3.7, Magnesium Level 1.8 01/07/19 11:08: Glucometer 136H 01/07/19 16:26: Glucometer 204H 01/07/19 20:18: Glucometer 176H 01/08/19 05:20: Glucometer 203H 01/08/19 06:10: White Blood Count 5.7, Red Blood Count 3.17L, Hemoglobin 8.9L, Hematocrit 29L, Mean Corpuscular Volume 91, Mean Corpuscular Hemoglobin 28, Mean Corpuscular Hemoglobin Concent 31L, Red Cell Distribution Width 16.7H, Platelet Count 326, Mean Platelet Volume 8.7, Phosphorus Level 3.3, Magnesium Level 1.8 01/08/19 11:20: Glucometer 141H 01/08/19 15:25: Glucometer 219H 01/08/19 20:12: Glucometer 136H 01/09/19 05:32: Glucometer 186H 01/09/19 10:55: Glucometer 100 01/09/19 16:11: Glucometer 136H 01/09/19 20:58: Glucometer 211H 01/10/19 05:40: Glucometer 197H 01/10/19 10:58: Glucometer 171H 01/10/19 16:34: Glucometer 135H 01/10/19 20:13: Glucometer 189H 01/11/19 05:43: Glucometer 170H 01/11/19 10:58: Glucometer 194H 01/11/19 15:52: Glucometer 135H 01/11/19 20:35: Glucometer 173H 01/12/19 05:18: Glucometer 193H 01/12/19 11:04: Glucometer 176H 01/12/19 16:18: Glucometer 133H 01/12/19 20:36: Glucometer 210H 01/13/19 05:13: Glucometer 133H 01/13/19 11:51: Glucometer 242H 01/13/19 15:53: Glucometer 147H 01/13/19 20:45: Glucometer 129H 01/14/19 05:16: Glucometer 156H 01/14/19 10:59: Glucometer 169H 01/14/19 16:46: Glucometer 140H 01/14/19 20:49: Glucometer 204H 01/15/19 05:26: Glucometer 142H 01/15/19 11:08: Glucometer 168H 01/15/19 15:31: Glucometer 155H 01/15/19 20:33: Glucometer 176H 01/16/19 05:55: White Blood Count 5.5, Red Blood Count 3.20L, Hemoglobin 9.0L, Hematocrit 29L, Mean Corpuscular Volume 91, Mean Corpuscular Hemoglobin 28, Mean Corpuscular Hemoglobin Concent 31L, Red Cell Distribution Width 17.5H, Platelet Count 321, Mean Platelet Volume 8.8, Neutrophils (%) (Auto) 61, Lymphocytes (%) (Auto) 18, Monocytes (%) (Auto) 14H, Eosinophils (%) (Auto) 7, Basophils (%) (Auto) 1, Neutrophils # (Auto) 3.4, Lymphocytes # (Auto) 1.0, Monocytes # (Auto) 0.8, Eosinophils # (Auto) 0.4H, Basophils # (Auto) 0.0, Sodium Level 138, Potassium Level 3.6, Chloride Level 103, Carbon Dioxide Level 26, Anion Gap 9, Blood Urea Nitrogen 13, Creatinine 0.63, Estimat Glomerular Filtration Rate > 60, BUN/Creatinine Ratio 21, Glucose Level 126H, Calcium Level 9.4, Corrected Calcium 10.1, Total Bilirubin 0.4, Aspartate Amino Transf (AST/SGOT) 13, Alanine Aminotransferase (ALT/SGPT) 22, Alkaline Phosphatase 67, Total Protein 6.6, Albumin 3.1L 01/16/19 17:10: Blood Gas Puncture Site L RAD, Blood Gas Patient Temperature 98.1, Arterial Blood pH 7.47H, Arterial Blood Partial Pressure CO2 39, Arterial Blood Partial Pressure O2 70L, Arterial Blood HCO3 28H, Arterial Blood Total CO2 29.4, Sophia rial Blood Oxygen Saturation 96, Arterial Blood Base Excess 4.5H, Jackson Test YES-POS, Blood Gas Ventilator Setting NO, Blood Gas Inspired Oxygen RA 01/23/19 06:10: White Blood Count 5.3, Red Blood Count 3.47L, Hemoglobin 9.9L, Hematocrit 32L, Mean Corpuscular Volume 91, Mean Corpuscular Hemoglobin 29, Mean Corpuscular Hemoglobin Concent 31L, Red Cell Distribution Width 17.4H, Platelet Count 293, Mean Platelet Volume 8.5, Neutrophils (%) (Auto) 57, Lymphocytes (%) (Auto) 24, Monocytes (%) (Auto) 11, Eosinophils (%) (Auto) 7, Basophils (%) (Auto) 0, Neutrophils # (Auto) 3.0, Lymphocytes # (Auto) 1.3, Monocytes # (Auto) 0.6, Eosinophils # (Auto) 0.4H, Basophils # (Auto) 0.0, Sodium Level 138, Potassium Level 2.9L, Chloride Level 102, Carbon Dioxide Level 27, Anion Gap 9, Blood Urea Nitrogen 9, Creatinine 0.59L, Estimat Glomerular Filtration Rate > 60, BUN/Creatinine Ratio 15, Glucose Level 146H, Calcium Level 9.1, Corrected Calcium 9.8, Total Bilirubin 0.3, Aspartate Amino Transf (AST/SGOT) 15, Alanine Aminotransferase (ALT/SGPT) 22, Alkaline Phosphatase 65, Total Protein 6.7, Albumin 3.1L Pending Labs Laboratory Tests 01/05/19 11:30: Glucometer 153 01/05/19 13:32: White Blood Count 8.5, Red Blood Count 3.27, Hemoglobin 9.0, Hematocrit 30, Mean Corpuscular Volume 91, Mean Corpuscular Hemoglobin 28, Mean Corpuscular Hemoglobin Concent 30, Red Cell Distribution Width 16.4, Platelet Count 334, Mean Platelet Volume 8.5, Sodium Level 138, Potassium Level 5.2, Chloride Level 101, Carbon Dioxide Level 28, Anion Gap 9, Blood Urea Nitrogen 23, Creatinine 0.70, Estimat Glomerular Filtration Rate > 60, BUN/Creatinine Ratio 33, Glucose Level 204, Calcium Level 9.9, Phosphorus Level 2.6, Magnesium Level 1.6, B-Type Natriuretic Peptide 43.9 01/05/19 15:37: Glucometer 156 01/05/19 21:17: Glucometer 193 01/06/19 05:31: White Blood Count 7.8, Red Blood Count 3.25, Hemoglobin 9.1, Hematocrit 30, Mean Corpuscular Volume 91, Mean Corpuscular Hemoglobin 28, Mean Corpuscular Hemoglobin Concent 31, Red Cell Distribution Width 16.5, Platelet Count 330, Mean Platelet Volume 8.6, Sodium Level 137, Potassium Level 4.3, Chloride Level 100, Carbon Dioxide Level 25, Anion Gap 12, Blood Urea Nitrogen 22, Creatinine 0.65, Estimat Glomerular Filtration Rate > 60, BUN/Creatinine Ratio 34, Glucose Level 177, Calcium Level 9.5, Phosphorus Level 3.5, Magnesium Level 2.1 01/06/19 06:23: Glucometer 190 01/06/19 11:49: Glucometer 160 01/06/19 16:25: Glucometer 111 01/06/19 21:16: Glucometer 164 01/07/19 05:27: Glucometer 217 01/07/19 05:37: White Blood Count 7.7, Red Blood Count 3.20, Hemoglobin 9.0, Hematocrit 29, Mean Corpuscular Volume 90, Mean Corpuscular Hemoglobin 28, Mean Corpuscular Hemoglo bin Concent 31, Red Cell Distribution Width 16.7, Platelet Count 358, Mean Platelet Volume 8.9, Phosphorus Level 3.7, Magnesium Level 1.8 01/07/19 11:08: Glucometer 136 01/07/19 16:26: Glucometer 204 01/07/19 20:18: Glucometer 176 01/08/19 05:20: Glucometer 203 01/08/19 06:10: White Blood Count 5.7, Red Blood Count 3.17, Hemoglobin 8.9, Hematocrit 29, Mean Corpuscular Volume 91, Mean Corpuscular Hemoglobin 28, Mean Corpuscular Hemoglobin Concent 31, Red Cell Distribution Width 16.7, Platelet Count 326, Mean Platelet Volume 8.7, Phosphorus Level 3.3, Magnesium Level 1.8 01/08/19 11:20: Glucometer 141 01/08/19 15:25: Glucometer 219 01/08/19 20:12: Glucometer 136 01/09/19 05:32: Glucometer 186 01/09/19 10:55: Glucometer 100 01/09/19 16:11: Glucometer 136 01/09/19 20:58: Glucometer 211 01/10/19 05:40: Glucometer 197 01/10/19 10:58: Glucometer 171 01/10/19 16:34: Glucometer 135 01/10/19 20:13: Glucometer 189 01/11/19 05:43: Glucometer 170 01/11/19 10:58: Glucometer 194 01/11/19 15:52: Glucometer 135 01/11/19 20:35: Glucometer 173 01/12/19 05:18: Glucometer 193 01/12/19 11:04: Glucometer 176 01/12/19 16:18: Glucometer 133 01/12/19 20:36: Glucometer 210 01/13/19 05:13: Glucometer 133 01/13/19 11:51: Glucometer 242 01/13/19 15:53: Glucometer 147 01/13/19 20:45: Glucometer 129 01/14/19 05:16: Glucometer 156 01/14/19 10:59: Glucometer 169 01/14/19 16:46: Glucometer 140 01/14/19 20:49: Glucometer 204 01/15/19 05:26: Glucometer 142 01/15/19 11:08: Glucometer 168 01/15/19 15:31: Glucometer 155 01/15/19 20:33: Glucometer 176 01/16/19 05:55: White Blood Count 5.5, Red Blood Count 3.20, Hemoglobin 9.0, Hematocrit 29, Mean Corpuscular Volume 91, Mean Corpuscular Hemoglobin 28, Mean Corpuscular Hemoglobin Concent 31, Red Cell Distribution Width 17.5, Platelet Count 321, Mean Platelet Volume 8.8, Neutrophils (%) (Auto) 61, Lymphocytes (%) (Auto) 18, Monocytes (%) (Auto) 14, Eosinophils (%) (Auto) 7, Basophils (%) (Auto) 1, Neutrophils # (Auto) 3.4, Lymphocytes # (Auto) 1.0, Monocytes # (Auto) 0.8, Eosinophils # (Auto) 0.4, Basophils # (Auto) 0.0, Sodium Level 138, Potassium Level 3.6, Chloride Level 103, Carbon Dioxide Level 26, Anion Gap 9, Blood Urea Nitrogen 13, Creatinine 0.63, Estimat Glomerular Filtration Rate > 60, BUN/Creatinine Ratio 21, Glucose Level 126, Calcium Level 9.4, Corrected Calcium 10.1, Total Bilirubin 0.4, Aspartate Amino Transf (AST/SGOT) 13, Alanine Aminotransferase (ALT/SGPT) 22, Alkaline Phosphatase 67, Total Protein 6.6, Albumin 3.1 01/16/19 17:10: Blood Gas Puncture Site L RAD, Blood Gas Patient Temperature 98.1, Arterial Blood pH 7.47, Arterial Blood Partial Pressure CO2 39, Arterial Blood Partial Pressure O2 70, Arterial Blood HCO3 28, Arterial Blood Total CO2 29.4, Arterial Blood Oxygen Saturation 96, Arterial Blood Base Excess 4.5, Jackson Test YES-POS, Blood Gas Ventilator Setting NO, Blood Gas Inspired Oxygen RA 01/23/19 06:10: White Blood Count 5.3, Red Blood Count 3.47, Hemoglobin 9.9, Hematocrit 32, Mean Corpuscular Volume 91, Mean Corpuscular Hemoglobin 29, Mean Corpuscular Hemoglobin Concent 31, Red Cell Distribution Width 17.4, Platelet Count 293, Mean Platelet Volume 8.5, Neutrophils (%) (Auto) 57, Lymphocytes (%) (Auto) 24, Monocytes (%) (Auto) 11, Eosinophils (%) (Auto) 7, Basophils (%) (Auto) 0, Neutrophils # (Auto) 3.0, Lymphocytes # (Auto) 1.3, Monocytes # (Auto) 0.6, Eosinophils # (Auto) 0.4, Basophils # (Auto) 0.0, Sodium Level 138, Potassium Level 2.9, Chloride Level 102, Carbon Dioxide Level 27, Anion Gap 9, Blood Urea Nitrogen 9, Creatinine 0.59, Estimat Glomerular Filtration Rate > 60, BUN/Creatinine Ratio 15, Glucose Level 146, Calcium Level 9.1, Corrected Calcium 9.8, Total Bilirubin 0.3, Aspartate Amino Transf (AST/SGOT) 15, Alanine Aminotransferase (ALT/SGPT) 22, Alkaline Phosphatase 65, Total Protein 6.7, Albumin 3.1 Discharge Home Medications: Active Scripts Active Sodium Bicarbonate 650 Mg Tablet 325 Mg PEG UD PRN 30 Days [Lidocaine 4% Patch] 1 EA Patch 1 Ea TOP DAILY 30 Days Acidophilus-Pectin Capsule (Lactobacillus Acidophilus/Pect) 1 Each Capsule 1 Each PO BID 30 Days Pantoprazole Sodium 40 Mg Tablet.dr 40 Mg PO DAILY 30 Days Sucralfate 1 Gm Tablet 1 Gm PO Q6HR 30 Days Ondansetron Odt (Ondansetron) 4 Mg Tab.rapdis 4 Mg PO Q4HR PRN 30 Days Daliresp (Roflumilast) 500 Mcg Tablet 500 Mcg PO 1400 30 Days Lortab 7.5 Mg Tablet (Acetaminophen/Hydrocodone Bitart) 1 Ea Tablet 1 Ea PO Q4H PRN Metoprolol Tartrate 25 Mg Tablet 12.5 Mg PO BID 30 Days Sildenafil (Sildenafil Citrate) 20 Mg Tablet 20 Mg PO TID 30 Days Enoxaparin Sodium 40 Mg/0.4 Ml Syringe 40 Mg SC 1700 14 Days Iprat-Albut 0.5-3(2.5) mg/3 ml (Ipratropium/Albuterol Sulfate) 3 Ml Ampul.neb 3 Ml IH Q6H PRN 30 Days Reported Vitamin D3 (Cholecalciferol (Vitamin D3)) 1,000 Unit Capsule 2,000 Unit PO DAILY Tylenol Arthritis (Acetaminophen) 650 Mg Tablet.er 650 Mg PO Q6H PRN Multivitamins (Multivitamin) 1 Each Tablet 1 Tab PO DAILY Folic Acid 1 Mg Tablet 1 Mg PO DAILY Instructions to patient/family Please see electronic discharge instructions given to patient. Diagnosis/Problems Diagnosis/Problems (1) Myopathy (2) GERD (gastroesophageal reflux disease) Status: Chronic (3) Ventilator dependence Status: Acute (4) Hyperkalemia (5) Dementia Status: Chronic (6) Pyloric ulcer Status: Acute (7) Tracheostomy in place (8) Transfusion history Clinical Quality Measures DVT/VTE Risk/Contraindication: Risk Factor Score Per Nursin RFS Level Per Nursing on Admit: 4+=Very High BO SUÁREZ DO Jan 25, 2019 09:36
--- NOTE | 2019-01-25 10:20 | NUR ---
Call to Dr. Javier for DC wound care orders, right posterior calf. Orders to DC dressing change (Xeroform and Kerlix) and leave [facility] [employer]PERATOR. [facility] assess and treat as needed. Follow up with Dr. Javier as needed.
--- NOTE | 2019-01-25 10:27 | Therapy Team Discharge Summary ---
Therapy Discharge Summary Discharge Recommendations Date of Discharge Therapy D/C Recommendations: Longterm (TCU/NH) Occupational Therapy Decreased Activ Tolerance, Decreased Safety Aware, Decreased UE Strength, Dependent Transfers, Impaired Bed Mobility, Impaired Coordination, Impaired Funct Balance, Impaired I ADL's, Impaired Self-Care Skills Speech-Language Pathology The patient was admitted to the ARU with a very complex medical issues. She received therapy for swallowing due to admission with a Dysphagia II diet level. The patient made excellent progress. When the trach was removed she was able to advance to a regular diet with thin liquids. She was trained in compensatory strategies for safe oral intake which she used consistently given minimal cues. She was discharged today to SNF as well as discharge from with goals met. PT Financial Planning Adviser Goals Skilled Nursing Goals PT Financial Planning Adviser Goals Time Frame: Feb 02, 2019 Transfers (B,C,W/C) (FIM): 6 Roll Left to Right (QC): 6 Sit to Lying (QC): 6 Lying-Sitting on Side/Bed(QC): 6 Sit to Stand (QC): 6 Chair/Eyh-au-Vhjbf Xfer(QC): 6 Car Transfer (QC): 5 Does the Patient Walk: No and Walking Goal IS indicated Gait (FIM): 5 Gait distance (FIM): 3=910-10 ft Walk 10 feet (QC): 5 Walk 10ft-Uneven Surface(QC): 5 Walk 50ft with 2 Turns (QC): 5 Walk 150 ft (QC): 4 Gait Assistive Device: FWW Does the Pt use WC or Scooter?: No Stairs (FIM): 2 # of Steps: 4 1 Step (curb) (QC): 5 4 Steps (QC): 4 12 Steps (QC): 88 Picking up an Object (QC): 88 OT Financial Planning Adviser Goals Financial Planning Adviser Goals Time Frame: Feb 07, 2019 Eating (FIM): 6 (MET) Eating (QC): 6 (MET ) Oral Hygiene (QC): 6 (NOT MET ) Grooming(FIM): 6 (NOT MET ) Bathing(FIM): 5 (NOT MET ) Bathing Location: L Arm, R Arm, L Upper Leg, R Upper Leg, L Lower Leg (including foot), R Lower Leg (including foot), Chest, Abdomen, Buttocks, Perineal Area Shower/Bathe Self (QC): 5 (NOT MET ) Upper Body Dressing(FIM): 5 (MET) Upper Body Dressing (QC): 5 (NOT MET ) Lower Body Dressing(FIM): 5 (NOT MET ) Lower Body Dressing (QC): 5 (NOT MET ) On/Off Footwear (QC): 5 (NOT MET ) Toileting(FIM): 5 (NOT MET ) Toileting Hygiene (QC): 5 (NOT MET ) Transfers (B,C,W/C) (FIM): 5 (NOT MET ) Toilet/Commode Transfer(FIM): 5 (NOT MET ) Toilet/Commode Transfer (QC): 5 (NOT MET ) Shower Transfer(FIM): 5 (NOT MET ) Additional Goals: 1-Demonstrate ADL Tasks, 2-Verbalize Understanding, 3- ImproveStrength/Ralph 1=Demonstrate adherence to instructed precautions during ADL tasks. 2=Patient will verbalize/demonstrate understanding of assistive devices/modifications for ADL. 3=Patient will improve strength/tolerance for activity to enable patient to perform ADL's. Speech Financial Planning Adviser Goals Financial Planning Adviser Goals The patient will maintain adequate nutrition/hydration via safe effective swallow function with PEG tube as needed. Met SHIRLENE HAMPTON Jan 25, 2019 10:27
--- NOTE | 2019-01-25 11:28 | NUR ---
Report to RN at [facility]
--- NOTE | 2019-01-25 11:37 | Therapy Team Discharge Summary ---
Therapy Discharge Summary Discharge Recommendations Date of Discharge Therapy D/C Recommendations: [facility] (TCU/NH) Occupational Therapy not all OT goals were met secondary to pt overall debility/ deficits, and pt huge fear of falling/ self limiting fears. OT has focused on increasing independence with ADLS, functional transfers, use of AE/ DME, UE ROM/ strength, increasing F/GMC, increasing activity tolerance/ endurance, increasing static/ dyn seated balance,and overall safety with functional tasks in seated. pt biggest barrier is [place], incontinence, limited activity tolerance. pt increase UE anvil seating press operator strength with LUE 16# and RUE 15#. Currently, pt is able to perform UB dressing with SBA, LB dressing with MIN A to pull up pants, grooming and eating with SBA/ setup, bathing with MIN A, and total assist for toileting and functional transfers. currently pt requires radha lift. pt is to d/c to [facility] home this date. recommend continued OT Services to increase independence with ADLS/ functional transfers and to address barriers. Decreased Activ Tolerance, Decreased Safety Aware, Decreased UE Strength, Dependent Transfers, Impaired Bed Mobility, Impaired Coordination, Impaired Funct Balance, Impaired I ADL's, Impaired Self-Care Skills PT Granite Countertop Installer Goals Shelter Goals PT Granite Countertop Installer Goals Time Frame: Feb 02, 2019 Transfers (B,C,W/C) (FIM): 6 Roll Left to Right (QC): 6 Sit to Lying (QC): 6 Lying-Sitting on Side/Bed(QC): 6 Sit to Stand (QC): 6 Chair/Kus-pc-Gfzvl Xfer(QC): 6 Car Transfer (QC): 5 Does the Patient Walk: No and Walking Goal IS indicated Gait (FIM): 5 Gait distance (FIM): 6=935-24 ft Walk 10 feet (QC): 5 Walk 10ft-Uneven Surface(QC): 5 Walk 50ft with 2 Turns (QC): 5 Walk 150 ft (QC): 4 Gait Assistive Device: FWW Does the Pt use WC or Scooter?: No Stairs (FIM): 2 # of Steps: 4 1 Step (curb) (QC): 5 4 Steps (QC): 4 12 Steps (QC): 88 Picking up an Object (QC): 88 OT Shelter Goals Granite Countertop Installer Goals Time Frame: Feb 07, 2019 Eating (FIM): 6 (MET) Eating (QC): 6 (MET ) Oral Hygiene (QC): 6 (NOT MET ) Grooming(FIM): 6 (NOT MET ) Bathing(FIM): 5 (NOT MET ) Bathing Location: L Arm, R Arm, L Upper Leg, R Upper Leg, L Lower Leg (including foot), R Lower Leg (including foot), Chest, Abdomen, Buttocks, Perineal Area Shower/Bathe Self (QC): 5 (NOT MET ) Upper Body Dressing(FIM): 5 (MET) Upper Body Dressing (QC): 5 (NOT MET ) Lower Body Dressing(FIM): 5 (NOT MET ) Lower Body Dressing (QC): 5 (NOT MET ) On/Off Footwear (QC): 5 (NOT MET ) Toileting(FIM): 5 (NOT MET ) Toileting Hygiene (QC): 5 (NOT MET ) Transfers (B,C,W/C) (FIM): 5 (NOT MET ) Toilet/Commode Transfer(FIM): 5 (NOT MET ) Toilet/Commode Transfer (QC): 5 (NOT MET ) Shower Transfer(FIM): 5 (NOT MET ) Additional Goals: 1-Demonstrate ADL Tasks, 2-Verbalize Understanding, 3- ImproveStrength/Ralph 1=Demonstrate adherence to instructed precautions during ADL tasks. 2=Patient will verbalize/demonstrate understanding of assistive devices/modifications for ADL. 3=Patient will improve strength/tolerance for activity to enable patient to perform ADL's. Speech Shelter Goals Granite Countertop Installer Goals The patient will maintain adequate nutrition/hydration via safe effective swallow function with PEG tube as needed. Met ANGELY CHOUDHURY OT Jan 25, 2019 11:36
--- NOTE | 2019-01-25 11:37 | Therapy Team Discharge Summary ---
Therapy Discharge Summary Discharge Recommendations Date of Discharge 01/25/2019 Therapy D/C Recommendations: Halfway (TCU/NH) Physical Therapy This patient was transferred to this facility with dx of critical illness myopathy. She had a lengthy hospital course prior to her admission to this facility. Upon admission, she was dependent for all transfers requiring a radha lift. She was able to participate with bed mobiltiy but still max assist to dep. Treatment has consisted of funcitonal strength training, transfer training and mobility. Her progress has been limited due to gross functional weakness and length of acute hospital stay and she remains at a dep to max assist for mobility and reliant on a radha for transfers. However, she does have potential to make gains, just feel it will take additional time; therefore recommend continued skilled therapy serivices upon discharge to address mobitliy for optimal participation in her environment. No goals met and will DC PT from this unit at this time Occupational Therapy Decreased Activ Tolerance, Decreased Safety Aware, Decreased UE Strength, Dependent Transfers, Impaired Bed Mobility, Impaired Coordination, Impaired Funct Balance, Impaired I ADL's, Impaired Self-Care Skills PT Alf Goals Flight Test Shop Mechanic Goals PT Flight Test Shop Mechanic Goals Time Frame: Feb 02, 2019 Transfers (B,C,W/C) (FIM): 6 Roll Left to Right (QC): 6 Sit to Lying (QC): 6 Lying-Sitting on Side/Bed(QC): 6 Sit to Stand (QC): 6 Chair/Ish-ma-Mkcnw Xfer(QC): 6 Car Transfer (QC): 5 Does the Patient Walk: No and Walking Goal IS indicated Gait (FIM): 5 Gait distance (FIM): 4=535-88 ft Walk 10 feet (QC): 5 Walk 10ft-Uneven Surface(QC): 5 Walk 50ft with 2 Turns (QC): 5 Walk 150 ft (QC): 4 Gait Assistive Device: FWW Does the Pt use WC or Scooter?: No Stairs (FIM): 2 # of Steps: 4 1 Step (curb) (QC): 5 4 Steps (QC): 4 12 Steps (QC): 88 Picking up an Object (QC): 88 no goals met OT Alf Goals Alf Goals Time Frame: Feb 07, 2019 Eating (FIM): 6 (MET) Eating (QC): 6 (MET ) Oral Hygiene (QC): 6 (NOT MET ) Grooming(FIM): 6 (NOT MET ) Bathing(FIM): 5 (NOT MET ) Bathing Location: L Arm, R Arm, L Upper Leg, R Upper Leg, L Lower Leg (including foot), R Lower Leg (including foot), Chest, Abdomen, Buttocks, Per ineal Area Shower/Bathe Self (QC): 5 (NOT MET ) Upper Body Dressing(FIM): 5 (MET) Upper Body Dressing (QC): 5 (NOT MET ) Lower Body Dressing(FIM): 5 (NOT MET ) Lower Body Dressing (QC): 5 (NOT MET ) On/Off Footwear (QC): 5 (NOT MET ) Toileting(FIM): 5 (NOT MET ) Toileting Hygiene (QC): 5 (NOT MET ) Transfers (B,C,W/C) (FIM): 5 (NOT MET ) Toilet/Commode Transfer(FIM): 5 (NOT MET ) Toilet/Commode Transfer (QC): 5 (NOT MET ) Shower Transfer(FIM): 5 (NOT MET ) Additional Goals: 1-Demonstrate ADL Tasks, 2-Verbalize Understanding, 3- ImproveStrength/Ralph 1=Demonstrate adherence to instructed precautions during ADL tasks. 2=Patient will verbalize/demonstrate understanding of assistive devices/modifications for ADL. 3=Patient will improve strength/tolerance for activity to enable patient to perform ADL's. Speech Flight Test Shop Mechanic Goals Flight Test Shop Mechanic Goals The patient will maintain adequate nutrition/hydration via safe effective swallow function with PEG tube as needed. Met SALLY CENTENO PT Jan 25, 2019 11:37
[2019-01-25 11:53] VITALS: BP 140/70
[2019-01-25 12:15] VITALS: BP 140/70
== END 2019-01-25 12:15 | DRG 92 ==
PROVIDERS: ADMIT Internal Medicine; ATTEND Internal Medicine
DX: G72.81 Critical illness myopathy (principal); Z93.0 Tracheostomy status; Z93.1 Gastrostomy status; J96.10 Chronic respiratory failure, unspecified whether with hypoxia or hypercapnia; D62 Acute posthemorrhagic anemia; K25.3 Acute gastric ulcer without hemorrhage or perforation; L89.229 Pressure ulcer of left hip, unspecified stage; L89.899 Pressure ulcer of other site, unspecified stage; F03.90 Unspecified dementia, unspecified severity, without behavioral disturbance, psychotic disturbance, mood disturbance, and anxiety; K21.9 Gastro-esophageal reflux disease without esophagitis; M19.90 Unspecified osteoarthritis, unspecified site; M06.9 Rheumatoid arthritis, unspecified; E11.9 Type 2 diabetes mellitus without complications; E87.5 Hyperkalemia; R19.7 Diarrhea, unspecified; G60.9 Hereditary and idiopathic neuropathy, unspecified; B35.1 Tinea unguium; M20.11 Hallux valgus (acquired), right foot; M20.12 Hallux valgus (acquired), left foot; M20.41 Other hammer toe(s) (acquired), right foot; M20.42 Other hammer toe(s) (acquired), left foot; M21.371 Foot drop, right foot; M21.372 Foot drop, left foot
CPT/HCPCS: 36415; 71045; 71260; 80048; 80053; 82805; 82962; 83735; 83880; 84100; 85025; 85027; 94640; 94760

== ENCOUNTER 2019-02-26 05:31 | Inpatient (IN) | payer MEDICARE, OTHER ==
[~2019-02-26] VITALS: Ht 157.5 cm; Wt 54.0 kg
[~2019-02-26 05:31] MED LIST changes: +ACET325T38 PEG; +ALBU2.5V4 NEB; +ASCO500T6 PEG; +ASPI325T32 PO; +DEXT50IV12 IV; +ENOX40DI13 SQ; +ENOX40DI8 SC; +FERR300L PEG; +HYDR-3816 PEG; +INSU100V SQ; +IPRA3AMP31 IH; +IPRA3AMP31 NEB; +LACT1CAP7 PO; +LACT1CAP8 PEG; +LANS30CA43 PEG; +LIDO1ADH41 TP; +LIPA1CAP26 PEG; +Lidocaine 4% Patch TOP; +METO-333 PEG; +METO-333 PO; +MIDO10TA PEG; +MULT-166 PEG; +NIAC250T8 PEG; +NUT.237L23 PEG; +OMEG1CAP PEG; +ONDA4TAB11 PO; +PANT40TA3 PO; +PHEN30SP8 MM; +POTA40LI11 PEG; +ROFL250T PEG; +ROFL500T PO; +SCOP1PAT11 TD; +SILD20TA PEG; +SILD20TA14 PO; +SODI325T PEG; +SODI650T PEG; +SUCR1ORA5 PEG; +SUCR1TAB PO; +THEO100T16 PEG; +THIA100T66 PEG
[2019-02-26] MEDS ORDERED: PIPERACILLIN SODIUM/TAZOBACTAM 4.5 GM in NS (IVPB) 100 ML IV ONE (06:00)
[2019-02-26] MEDS ORDERED: NS IV ONE (06:00)
[2019-02-26] MEDS ORDERED: VANCOMYCIN INJECTION 1,000 MG in NS (IVPB) 250 ML IV ONE (06:00)
--- NOTE | 2019-02-26 06:00 | NUR ---
PT. DOES HAVE A PEG TUBE.
[2019-02-26 06:01] LABS: BASOPHILS % (AUTO) 0 % (0-10); EOSINOPHILS % (AUTO) 0 % (0-10); HEMATOCRIT 37 % (35-52); HEMOGLOBIN 11.7 G/DL (11.5-16.0); LYMPHOCYTES # (AUTO) 0.5 X 10^3 (1.0-4.0); LYMPHOCYTES % (AUTO) 4 % (12-44); MEAN CORPUSCULAR HEMOGLOBIN 29 PG (25-34); MEAN CORPUSCULAR HGB CONC 32 G/DL (32-36); MEAN CORPUSCULAR VOLUME 90 FL (80-99); MEAN PLATELET VOLUME 9.9 FL (7.4-10.4); MONOCYTES # (AUTO) 0.7 X 10^3 (0.0-1.0); MONOCYTES % (AUTO) 6 % (0-12); NEUTROPHILS # (AUTO) 10.8 X 10^3 (1.8-7.8); NEUTROPHILS % (AUTO) 90 % (42-75); PLATELET COUNT 195 10^3/uL (130-400); RED CELL DISTRIBUTION WIDTH 14.5 % (10.0-14.5); WHITE BLOOD COUNT 12.1 10^3/uL (4.3-11.0)
[2019-02-26 06:17] LABS: INR 1.4 (0.8-1.4); PROTHROMBIN TIME PATIENT 17.3 SEC (12.2-14.7)
[2019-02-26 06:20] LABS: BUN/CREATININE RATIO 23; CARBON DIOXIDE 28 MMOL/L (21-32); CHLORIDE 98 MMOL/L (98-107); CREATININE SERUM 0.48 MG/DL (0.60-1.30); GFR ESTIMATED > 60; GLUCOSE 302 MG/DL (70-105); SODIUM 142 MMOL/L (135-145)
[2019-02-26 06:21] LABS: ALANINE AMINOTRANSFERASE 12 U/L (0-55); ALBUMIN 3.3 GM/DL (3.2-4.5); ALKALINE PHOSPHATASE 92 U/L (40-136); BILIRUBIN,TOTAL 1.1 MG/DL (0.1-1.0); POTASSIUM 2.3 MMOL/L (3.6-5.0); TOTAL PROTEIN 7.4 GM/DL (6.4-8.2)
[2019-02-26 06:27] LABS: ANISOCYTOSIS SLIGHT; LYMPHOCYTES % (MANUAL) 4 %; MONOCYTES % (MANUAL) 2 %; NEUTROPHILS % (MANUAL) 94 %
[2019-02-26] MEDS ORDERED: KCL 20 MEQ TAB (K-DUR) PO ONE ×2 (06:30→20:45)
--- NOTE | 2019-02-26 06:34 | ED General ---
General Chief Complaint: Respiratory Problems Stated Complaint: SOB Nursing Triage Note: PT. LIVES AT [facility] AND WAS BROUGHT TO THE ER BY EMS WITH THE C/O BEING SOB. PT. IS A/O, HAS A PEG TUBE, AND AN OLD TRACH THAT IS COVERED WITH A DRESSING. Nursing Sepsis Screen: Possible Sepsis Risk History of Present Illness Date Seen by Provider: Feb 26, 2019 Time Seen by Provider: 06:00 Initial Comments 79 yo female sent from [facility] c/o SOB has fever T -104 initial sepsis orders placed by prior shift cultures, fluids, Vanc Zosyn etc. pt denies feeling ill says [facility] called 5 AM notifying him Ptc/o SOB and "quivering" complex hx in last 6 months fall with rib fx's GI bleed prolonged ICU stay with trach (now covered with dressing) myopathy immobile requiring radha lift rehab stay with PEG tube placed (not being used now, scheduled for removal) has been back at [facility] for about 1 month Allergies and Home Medications Allergies Uncoded Allergies: UNKNOWN BLADDER MED (Allergy, Unknown, 10/03/18) none (Adverse Reaction, Unknown, 08/20/14) Home Medications Acetaminophen 650 Mg Tablet.er, 650 MG PO Q6H PRN for PAIN-MILD, (Reported) Cholecalciferol (Vitamin D3) 1,000 Unit Capsule, 2,000 UNIT PO DAILY, (Reported) Enoxaparin Sodium 40 Mg/0.4 Ml Syringe, 40 MG SC 1700 Prescribed by: BO SUÁREZ on 01/25/19932 Folic Acid 1 Mg Tablet, 1 MG PO DAILY, (Reported) Hydrocodone Bit/Acetaminophen 1 Ea Tablet, 1 EA PO Q4H PRN for PAIN-MODERATE Prescribed by: BO SUÁREZ on 01/25/19932 Ipratropium/Albuterol Sulfate 3 Ml Ampul.neb, 3 ML IH Q6H PRN for SHORTNESS OF BREATH Prescribed by: BO SUÁREZ on 01/25/19932 Lactobacillus Acidophilus/Pect 1 Each Capsule, 1 EACH PO BID Prescribed by: BO SUÁREZ on 01/25/19932 Metoprolol Tartrate 25 Mg Tablet, 12.5 MG PO BID Prescribed by: BO SUÁREZ on 01/25/19932 Multivitamin 1 Each Tablet, 1 TAB PO DAILY, (Reported) Ondansetron 4 Mg Tab.rapdis, 4 MG PO Q4HR PRN for NAUSEA/VOMITING-1ST LINE Prescribed by: BO SUÁREZ on 01/25/19932 Pantoprazole Sodium 40 Mg Tablet.dr, 40 MG PO DAILY Prescribed by: BO SUÁREZ on 01/25/19932 Roflumilast 500 Mcg Tablet, 500 MCG PO 1400 Prescribed by: BO SUÁREZ on 01/25/19932 Sildenafil Citrate 20 Mg Tablet, 20 MG PO TID Prescribed by: BO SUÁREZ on 01/25/19932 Sodium Bicarbonate 650 Mg Tablet, 325 MG PEG UD PRN for TUBE CLOG Prescribed by: BO SUÁREZ on 01/25/19932 Sucralfate 1 Gm Tablet, 1 GM PO Q6HR Prescribed by: BO SUÁREZ on 01/25/19932 [Lidocaine 4% Patch] 1 EA PATCH, 1 EA TOP DAILY Prescribed by: BO SUÁREZ on 01/25/19932 Patient Home Medication List Home Medication List Reviewed: Yes Review of Systems Review of Systems Constitutional: fever EENTM: no symptoms reported Respiratory: short of breath Cardiovascular: No chest pain; edema (edema L>R reports is actually better/resolving); No palpitations, No syncope Gastrointestinal: no symptoms reported Genitourinary: no symptoms reported Past Pilzoej-Htltwz-Gtdiag Hx Patient Social History 2nd Hand Smoke Exposure: No Recent Foreign Travel: No Contact w/Someone Who Travel: No Recent Infectious Disease Expo: No Recent Hopitalizations: No Physical Abuse: No Sexual Abuse: No Mistreated: No Fear: No Immunizations Up To Date Tetanus Booster (TDap): More than 5yrs PED Vaccines UTD: No Date of Pneumonia Vaccine: Aug 20, 2013 Date of Influenza Vaccine: Apr 19, 2014 Seasonal Allergies Seasonal Allergies: No Past Medical History Surgeries: Yes (RIGHT HIP REPLACEMENT, NECK SURGERY, EXPLORATORY ABD SURGERY) Joint Replacement Respiratory: Yes (RESPIRATORY DISTRESS WITH CURRENT TRACH) Pneumonia Currently Using CPAP: No Currently Using BIPAP: No Cardiac: Yes Neurological: No Dementia Reproductive Disorders: No Female Reproductive Disorders: Denies Sexually Transmitted Disease: No HIV/AIDS: No Genitourinary: Yes UTI-Chronic Gastrointestinal: Yes Gastroesophageal Reflux, Gastrointestinal Bleed Musculoskeletal: Yes Degenerate Disk Disease, Rheumatoid Arthritis Endocrine: Yes Diabetes, Non-Insulin dep HEENT: Yes Cataract Loss of Vision: Denies Hearing Impairment: Denies Cancer: No Psychosocial: No Integumentary: No Blood Disorders: No Adverse Reaction/Blood Tranf: No Family Medical History Patient reports no known family medical history. Other Conditions/Hx Physical Exam Vital Signs Vital Signs - First Documented 02/26/19 02/26/19 05:40 05:46 Temp 104.4 Pulse 130 Resp 30 B/P (MAP) 159/63 (95) Pulse Ox 92 O2 Delivery Nasal Cannula O2 Flow Rate 2.00 FiO2 96 Capillary Refill : Less Than 3 Seconds Height, Weight, BMI Height: 5'2.00" Weight: 117lbs. 3.2oz. [id number]; 20.9 BMI Method:Stated General Appearance: No Apparent Distress, Chronically ill Eyes: Bilateral Eye PERRL, Bilateral Eye EOMI HEENT: Moist Mucous Membranes Neck: Supple Respiratory: Accessory Muscle Use (mild), Rhonci Cardiovascular: Regular Rate, Rhythm (tachy 118 occ PAC PVC) Gastrointestinal: Normal Bowel Sounds, Non Tender, Soft Extremity: Other (leg edema R>L) Neurologic/Psychiatric: Alert, Oriented x3 Skin: Warm/Dry Focused Exam Sepsis Stage: Sepsis Possible Source: Genitouriary Lactate Level 02/26/19 05:40: Lactic Acid Level 1.05 Time of Focused Exam: 07:15 Respiratory: Accessory Muscle Use (mild), Rhonci Cardiovascular: Regular Rate, Rhythm Capillary Refill: Less Than 3 Seconds Skin: warm/dry Lactic Acid Level Laboratory Tests Test 02/26/19 05:40 Lactic Acid Level 1.05 MMOL/L (0.50-2.00) Procedures/Interventions Date of ETT Placement: Nov 05, 2018 Time of ETT Placement: 1230 Progress/Results/Core Measures Suspected Sepsis Recent Fever Within 48 Hours: Yes Infection Criteria Present: Suspected New Infection New/Unexplained Altered Menta: No Sepsis Screen: Possible Sepsis Risk SIRS Temperature:104.4 Pulse: 130 Respiratory Rate: 30 Laboratory Tests 02/26/19 05:40: White Blood Count 12.1H Blood Pressure 159 /63 Mean: 95 02/26/19 05:40: Lactic Acid Level 1.05 Laboratory Tests 02/26/19 05:40: Creatinine 0.48L, INR Comment 1.4, Platelet Count 195, Total Bilirubin 1.1H Results/Orders Lab Results Laboratory Tests Test 02/26/19 05:40 02/26/19 06:35 Range/Units White Blood Count 12.1 H 4.3-11.0 10^3/uL Red Blood Count 4.05 L 4.35-5.85 10^6/uL Hemoglobin 11.7 11.5-16.0 G/DL Hematocrit 37 35-52 % Mean Corpuscular Volume 90 80-99 FL Mean Corpuscular Hemoglobin 29 25-34 PG Mean Corpuscular Hemoglobin Concent 32 32-36 G/DL Red Cell Distribution Width 14.5 10.0-14.5 % Platelet Count 195 130-400 10^3/uL Mean Platelet Volume 9.9 7.4-10.4 FL Neutrophils (%) (Auto) 90 H 42-75 % Lymphocytes (%) (Auto) 4 L 12-44 % Monocytes (%) (Auto) 6 0-12 % Eosinophils (%) (Auto) 0 0-10 % Basophils (%) (Auto) 0 0-10 % Neutrophils # (Auto) 10.8 H 1.8-7.8 X 10^3 Lymphocytes # (Auto) 0.5 L 1.0-4.0 X 10^3 Monocytes # (Auto) 0.7 0.0-1.0 X 10^3 Eosinophils # (Auto) 0.0 0.0-0.3 10^3/uL Basophils # (Auto) 0.0 0.0-0.1 10^3/uL Neutrophils % (Manual) 94 % Lymphocytes % (Manual) 4 % Monocytes % (Manual) 2 % Anisocytosis SLIGHT Prothrombin Time 17.3 H 12.2-14.7 SEC INR Comment 1.4 0.8-1.4 Activated Partial Thromboplast Time 32 24-35 SEC Sodium Level 142 135-145 MMOL/L Potassium Level 2.3 *L 3.6-5.0 MMOL/L Chloride Level 98 98-107 MMOL/L Carbon Dioxide Level 28 21-32 MMOL/L Anion Gap 16 H 5-14 MMOL/L Blood Urea Nitrogen 11 7-18 MG/DL Creatinine 0.48 L 0.60-1.30 MG/DL Estimat Glomerular Filtration Rate > 60 BUN/Creatinine Ratio 23 Glucose Level 302 H 70-105 MG/DL Lactic Acid Level 1.05 0.50-2.00 MMOL/L Calcium Level 9.0 8.5-10.1 MG/DL Corrected Calcium 9.6 8.5-10.1 MG/DL Total Bilirubin 1.1 H 0.1-1.0 MG/DL Aspartate Amino Transf (AST/SGOT) 12 5-34 U/L Alanine Aminotransferase (ALT/SGPT) 12 0-55 U/L Alkaline Phosphatase 92 40-136 U/L Troponin I < 0.30 <0.30 NG/ML Total Protein 7.4 6.4-8.2 GM/DL Albumin 3.3 3.2-4.5 GM/DL Urine Color YELLOW Urine Clarity CLOUDY H Urine pH 6.5 5-9 Urine Specific [place] 1.015 L 1.016-1.022 Urine Protein 2+ H NEGATIVE Urine Glucose (UA) 2+ H NEGATIVE Urine Ketones 3+ H NEGATIVE Urine Nitrite NEGATIVE NEGATIVE Urine Bilirubin NEGATIVE NEGATIVE Urine Urobilinogen 1 NORMAL MG/DL Urine Leukocyte Esterase 2+ H NEGATIVE Urine RBC (Auto) 3+ H NEGATIVE Urine RBC 50-100 H /HPF Urine WBC TNTC H /HPF Urine Crystals NONE /LPF Urine Bacteria LARGE H /HPF Urine Casts NONE /LPF Urine Mucus SMALL H /LPF Urine Culture Indicated CULTURE PENDING My Orders Orders - KERRI DELGADO MD Potassium Chloride (Tablet) (K Dur Table (02/26/19 06:30) Medications Given in ED Current Medications Medications Dose Ordered Sig/Shae Route Start Time Stop Time Status Last Admin Dose Admin Piperacillin Sod/ Tazobactam Sod 4.5 gm/Sodium Chloride 100 ml @ 200 mls/hr ONCE ONCE IV 02/26/19 06:00 02/26/19 06:30 DC 02/26/19 06:12 200 MLS/HR Potassium Chloride 40 meq ONCE ONCE PO 02/26/19 06:30 02/26/19 06:31 DC 02/26/19 06:46 40 MEQ Sodium Chloride 1,594.83 ml @ 1,594.83 mls/hr ONCE ONCE IV 02/26/19 06:00 02/26/19 06:59 DC 02/26/19 06:11 1,594.83 MLS/HR Vancomycin HCl 1000 mg/Sodium Chloride 250 ml @ 250 mls/hr ONCE ONCE IV 02/26/19 06:00 02/26/19 06:59 DC 8/11/19 06:11 250 MLS/HR Vital Signs/I&O 02/26/19 02/26/19 05:40 05:46 Temp 104.4 Pulse 130 Resp 30 B/P (MAP) 159/63 (95) Pulse Ox 92 O2 Delivery Nasal Cannula Nasal Cannula O2 Flow Rate 2.00 2.00 FiO2 96 Capillary Refill : Less Than 3 Seconds Blood Pressure Mean: 95 ECG Initial ECG Rhythm: S.Tach Diagnostic Imaging Diagonstic Imaging: Xray (The appearance of the chest has improved since the prior exam as) Critical Care Note Critical Care Start Time: 06:00 Stop Time: 07:30 Total Time (minutes) 1:30 Date of : Feb 26, 2019 Departure Communication (Admissions) Time/Spoke to Consulting Phy: 07:15 Dr. Prabhakar accepts Impression Primary Impression: Sepsis due to urinary tract infection Additional Impressions: Hyperglycemia Hypokalemia Disposition: ADMITTED INPATIENT Condition: Improved Admissions Decision to Admit Reason: Admit from ER (General) Decision to Admit/Date: Feb 26, 2019 Time/Decision to Admit Time: 07:22 Transfer Time Spoke to Accepting Phy: 07:22 Transfer Facility: [facility] Method of Transfer: EMS Departure-Patient Inst. Referrals: ELIER REYNOLDS MD (PCP/Family) Primary Care Physician KERRI DELGADO MD Feb 26, 2019 06:34
[2019-02-26 06:44] LABS: BACTERIA,URINE LARGE /HPF; BILIRUBIN,URINE NEGATIVE (NEGATIVE); CLARITY,URINE CLOUDY; COLOR,URINE YELLOW; GLUCOSE, URINE (UA) 2+ (NEGATIVE); KETONES,URINE 3+ (NEGATIVE); LEUKOCYTE ESTERASE ,URINE 2+ (NEGATIVE); NITRITE,URINE NEGATIVE (NEGATIVE); PH,URINE 6.5 (5-9); PROTEIN,URINE 2+ (NEGATIVE); RBC,URINE 50-100 /HPF; UROBILINOGEN,URINE 1 MG/DL (NORMAL); WBC,URINE TNTC /HPF
--- NOTE | 2019-02-26 06:57 | Diagnostic Imaging Report ---
EXAMINATION: Portable erect AP chest at 556h. INDICATION: Shortness of breath The borderline cardiomegaly noted on the prior exam of 01/05/2019 is again evident and not significantly changed. There may be a small amount of atelectasis/infiltrate in the right lung base but the right lung base actually appears better aerated than on the prior study. The right upper lung and left lung are generally clear. The mediastinum is not widened. The osseous structures are intact. Multiple healed rib fractures are again seen on the left. The orthopedic hardware overlying the cervical spine seen previously is again visualized. IMPRESSION: The appearance of the chest has improved since the prior exam as the right lung base does seem better aerated. There is still a small amount of residual atelectasis/infiltrate in this area however. A followup exam should be considered for further evaluation if clinically indicated. Dictated by: Dictated on workstation # [id number]
[2019-02-26 07:20] VITALS: BP 131/55
--- NOTE | 2019-02-26 07:55 | NUR ---
Called dispatch to page out ambulance transfer at this time.
--- NOTE | 2019-02-26 08:13 | NUR ---
Patient transferred at this time to [facility] via [facility].
[2019-02-26 08:50] VITALS: BP 122/71
--- NOTE | 2019-02-26 09:10 | NUR ---
PRASANNA BAUER admitted to room 410-1, with an admitting diagnosis of urosepsis, on 02/26/19 from [facility] ED via [facility], accompanied by EMS. PRASANNA BAUER introduced to surroundings, call light, bed controls, phone, TV, temperature control, lights, meal times, smoking policy, visitor policy, side rail policy, bathrooms and showers. Patient Rights given to patient in the handbook. PRASANNA BAUER verbalizes understanding that [facility] is not responsible for the loss or damage to any personal effects or valuables that are kept in the patients possession during their hospitalization. The following Patient Care Plans were discussed with the patient: Discharge Planning, pain management, dehydration, and medications. PRASANNA BAUER verbalizes understanding of Interdisciplinary Patient Education. Patient and/or family were informed about the Rapid Response Team and its purpose.
[2019-02-26] MEDS: 1/2 NS W/KCL 20 MEQ/L 1,000 ML IV SCH ×2 (09:46→20:33)
[2019-02-26] MEDS: cefTRIAXone FOR IV USE 1,000 MG in WATER (STERILE) FOR INJECTION 10 ML IV SCH (09:48)
[2019-02-26] MEDS: POTASSIUM CL 10MEQ/50ML IVPB 50 ML IV SCH ×6 (09:48→22:57)
[2019-02-26] MEDS: inSUlin ASPART (NovoLOG) 1 UNIT/0.01 ML (CHARGE PER UNIT) SC SCH ×3 (11:45→21:21)
[2019-02-26 12:00] VITALS: BP 201/107
[2019-02-26] MEDS ORDERED: MELATONIN 3 MG TABLET PO PRN (12:15)
[2019-02-26] MEDS ORDERED: ONDANSETRON 4 MG (ZOFRAN) ORAL DISSOLVE TAB PO PRN (12:15)
[2019-02-26] MEDS: ACETAMINOPHEN 325 MG TABLET PO PRN ×2 (12:29→23:55)
[2019-02-26] MEDS ORDERED: NS IV 500 ML 500 ML ONE (12:49)
[2019-02-26] MEDS ORDERED: NS (IVPB) 500 ML IV ONE (13:00)
--- NOTE | 2019-02-26 13:18 | History & Physical-Hospitalist ---
History of Present Illness HPI/Chief Complaint Yu Anand is an 79yoF who presented from [facility] in [place] with fever and found to have sepsis due to urinary tract infection. She reports dysuria, frequency, and urgency. She has occasional functional incontinence which has been more frequent lately. She reports fevers and chills. She denies dyspnea and cough. She denies abdominal pain, nausea, and, vomiting. She reports diarrhea for which she has been treated with Imodium and has improved. She denies any skin rash. She denies headache, vision changes, chest pain, and palpitations. She had a prolonged hospitalization earlier this year due to a bleeding ulcer which required multiple endoscopies. 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 She had a PEG placed due to malnutrition which is still in place but not currently being used. Source: patient Exam Limitations: no limitations Date Seen 02/26/19 Time Seen by a Provider: 10:00 Attending Physician Elisabeth Naqvi MD PCP Jw Ruggiero MD Referring Physician Date of Admission Feb 26, 2019 at 07:43 Home Medications & Allergies Home Medications Reviewed patient Home Medication Reconciliation performed by pharmacy medication reconciliations cost recovery technician and/or nursing. Patients Allergies have been reviewed. Allergies Allergies Uncoded Allergies UNKNOWN BLADDER MED ( Allergy, Unknown, 10/03/18) none ( Adverse Reaction, Unknown, 08/20/14) Past Wvbsxwx-Dnduro-Ojzpui Hx Past Med/Social Hx: Reviewed Nursing Past Med/Soc Hx Patient Social History 2nd Hand Smoke Exposure: No Recent Foreign Travel: No Contact w/other who traveled: No Recent Hopitalizations: No Recent Infectious Disease Expo: No Immunizations Up To Date Tetanus Booster (TDap): More than 5yrs Pediatric: No Date of Pneumonia Vaccine: Aug 20, 2013 Date of Influenza Vaccine: Apr 19, 2014 Seasonal Allergies Seasonal Allergies: No Past Medical History Surgeries: Joint Replacement Currently Using CPAP: No Currently Using BIPAP: No Neurological: Dementia Reproductive: No Sexually Transmitted Disease: No HIV/AIDS: No Female Reproductive Disorders: Denies Genitourinary: UTI-Chronic Gastrointestinal: Gastroesophageal Reflux, Gastrointestinal Bleed Musculoskeletal: Degenerate Disk Disease, Rheumatoid Arthritis Endocrine: Diabetes, Non-Insulin dep HEENT: Cataract Loss of Vision: Denies Hearing Impairment: Denies History of Blood Disorders: No Adverse Reaction to Blood Ware: No Family History Patient reports no known family medical history. Other Conditions/Hx Review of Systems Constitutional: chills; No diaphoresis; fever, malaise, weakness EENTM: see HPI Respiratory: see HPI Cardiovascular: see HPI Gastrointestinal: see HPI Genitourinary: dysuria, frequency, incontinence Musculoskeletal: no symptoms reported Skin: no symptoms reported Psychiatric/Neurological: No Symptoms Reported Physical Exam Physical Exam Vital Signs Vital Signs - First Documented 02/26/19 02/26/19 05:40 05:46 Temp 104.4 Pulse 130 Resp 30 B/P (MAP) 159/63 (95) Pulse Ox 92 O2 Delivery Nasal Cannula O2 Flow Rate 2.00 FiO2 96 Capillary Refill : Less Than 3 Seconds Height, Weight, BMI Height: 5'2.00" Weight: 119lbs. 1.0oz. 54.407569al; 21.8 BMI Method:Stated General Appearance: No Apparent Distress, WD/WN HEENT: PERRL/EOMI, Pharynx Normal Neck: Normal Inspection, Supple Respiratory: Lungs Clear, Normal Breath Sounds, No Respiratory Distress; No Crackles; Decreased Breath Sounds; No Respiratory Distress, No Wheezing Cardiovascular: No Edema, No Murmur, Tachycardia Gastrointestinal: Normal Bowel Sounds, Non Tender, Soft Extremity: Normal Inspection, Non Tender, No Pedal Edema Neurologic/Psychiatric: Alert, Oriented x3, No Motor/Sensory Deficits Skin: Normal Color, Warm/Dry Lymphatic: No Adenopathy Results Results/Procedures Labs Laboratory Tests 02/26/19 05:40 Patient resulted labs reviewed. Imaging: Reviewed Imaging Films, Reviewed Imaging Report Assessment/Plan Admission Diagnosis Sepsis due to pyelonephritis Admission Status: Inpatient Order (span 2 midnights) Reason for Inpatient Admission: Hypokalemia Hyperglycemia Myopathy Assessment and Plan Sepsis due to urinary tract infection Pyelonephritis -SIRS+ with leukocytosis, tachycardia, and tachypnea -Septic source identified as UTI -UA indicative of UTI -Lactic acid negative -Troponin negative -Chest xray unremarkable, right lower lobe atelectasis -Blood cultures drawn -Urine culture pending -Started on Vanc/Zosyn initially -Transition to Rocephin with urinary source identified -IV fluids ordered Severe hypokalemia -K 2.3 on arrival -Received KCl 40 mEq in ER -KCl 40 mEq IV ordered -1/2 NS with 20 mEq at 100 ml/hr -Monitor on telemetry -Add on magnesium level -Repeat BMP at 1600 Hyperglycemia -BS >300 on arrival -No history of diabetes -Add on A1C -Sliding scale ordered 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
[2019-02-26] MEDS ORDERED: hydrALAZINE (APESOLINE) 20 MG/ML VIAL IV PRN (14:00)
[2019-02-26] MEDS ORDERED: RT-ALBUTEROL/IPRATROPIUM 3 ML (DUONEB) VIAL IH PRN (15:45)
[2019-02-26 16:05] VITALS: BP 135/77
[2019-02-26 16:32] LABS: BUN/CREATININE RATIO 13; CALCIUM 8.3 MG/DL (8.5-10.1); CARBON DIOXIDE 22 MMOL/L (21-32); CHLORIDE 110 MMOL/L (98-107); CREATININE SERUM 0.68 MG/DL (0.60-1.30); GFR ESTIMATED > 60; GLUCOSE 270 MG/DL (70-105); POTASSIUM 3.2 MMOL/L (3.6-5.0); SODIUM 143 MMOL/L (135-145)
[2019-02-26 19:15] VITALS: BP 134/67
[2019-02-26] MEDS: SILDENAFIL 20 MG (REVATIO) TAB NON-FORMULARY PO SCH (20:34)
[2019-02-26] MEDS: meTOprolol TARTRATE 25 MG (LOPRESSOR) TABLET PO SCH (20:34)
[2019-02-26] MEDS: POLYETHYLENE GLYCOL 17 GM (MIRALAX) PACK PO SCH (21:52)
[2019-02-26] MEDS: MAGNESIUM 1 GM/100 ML IVPB 100 ML IV SCH ×2 (21:52→22:57)
[2019-02-27] VITALS (8 sets, daily range): BP systolic 118–160; BP diastolic 60–90
[2019-02-27] MEDS: MAGNESIUM 1 GM/100 ML IVPB 100 ML IV SCH ×2 (00:03→01:04)
[2019-02-27] MEDS: POTASSIUM CL 10MEQ/50ML IVPB 50 ML IV SCH ×2 (00:04→01:04)
[2019-02-27 05:50] LABS: BASOPHILS % (AUTO) 0 % (0-10); EOSINOPHILS % (AUTO) 0 % (0-10); HEMATOCRIT 34 % (35-52); HEMOGLOBIN 10.5 G/DL (11.5-16.0); LYMPHOCYTES # (AUTO) 0.8 X 10^3 (1.0-4.0); LYMPHOCYTES % (AUTO) 8 % (12-44); MEAN CORPUSCULAR HEMOGLOBIN 29 PG (25-34); MEAN CORPUSCULAR HGB CONC 31 G/DL (32-36); MEAN CORPUSCULAR VOLUME 94 FL (80-99); MEAN PLATELET VOLUME 10.2 FL (7.4-10.4); MONOCYTES # (AUTO) 0.7 X 10^3 (0.0-1.0); MONOCYTES % (AUTO) 7 % (0-12); NEUTROPHILS # (AUTO) 8.4 X 10^3 (1.8-7.8); NEUTROPHILS % (AUTO) 85 % (42-75); PLATELET COUNT 145 10^3/uL (130-400); WHITE BLOOD COUNT 9.9 10^3/uL (4.3-11.0)
[2019-02-27 06:09] LABS: BUN/CREATININE RATIO 14; CALCIUM 8.5 MG/DL (8.5-10.1); CARBON DIOXIDE 21 MMOL/L (21-32); CHLORIDE 110 MMOL/L (98-107); CREATININE SERUM 0.64 MG/DL (0.60-1.30); GFR ESTIMATED > 60; GLUCOSE 195 MG/DL (70-105); MAGNESIUM 2.6 MG/DL (1.8-2.4); POTASSIUM 4.3 MMOL/L (3.6-5.0); SODIUM 140 MMOL/L (135-145)
[2019-02-27] MEDS: 1/2 NS W/KCL 20 MEQ/L 1,000 ML IV SCH ×2 (06:26→15:00)
[2019-02-27] MEDS: inSUlin ASPART (NovoLOG) 1 UNIT/0.01 ML (CHARGE PER UNIT) SC SCH ×4 (06:26→21:03)
[2019-02-27] MEDS: SILDENAFIL 20 MG (REVATIO) TAB NON-FORMULARY PO SCH ×3 (09:26→21:02)
[2019-02-27] MEDS: PANTOPRAZOLE 40 MG (PROTONIX) TAB PO SCH (09:26)
[2019-02-27] MEDS: meTOprolol TARTRATE 25 MG (LOPRESSOR) TABLET PO SCH ×2 (09:26→21:03)
[2019-02-27] MEDS: cefTRIAXone FOR IV USE 1,000 MG in WATER (STERILE) FOR INJECTION 10 ML IV SCH (09:26)
[2019-02-27] MEDS ORDERED: LIDO1ADH41 TP (09:30)
[2019-02-27] MEDS ORDERED: SILD20TA14 PO (09:30)
[2019-02-27] MEDS ORDERED: BUSP5TAB59 PO (09:30)
[2019-02-27] MEDS ORDERED: LOPE-134 PO (09:30)
[2019-02-27] MEDS ORDERED: IPRA3AMP31 NEB (09:30)
[2019-02-27] MEDS ORDERED: ONDA4TAB11 PO (09:30)
[2019-02-27] MEDS ORDERED: HYDR-34 PO (09:30)
[2019-02-27] MEDS ORDERED: METO-333 PO (09:30)
[2019-02-27] MEDS ORDERED: ROFL500T PO (09:30)
[2019-02-27] MEDS ORDERED: PANT40TA2 PO (09:30)
[2019-02-27] MEDS ORDERED: LACT1CAP76 PO (09:30)
[2019-02-27] MEDS ORDERED: SODI325T PEG (09:33)
[2019-02-27] MEDS ORDERED: SUCR1TAB PO (09:33)
--- NOTE | 2019-02-27 09:35 | NUR ---
UPDATED MED REC WITH [facility] THE MED REC HAD ALREADY BEEN COMPLETED OVER THE WEEKEND PRIOR TO MED REC TECH AVAILABILITY. I ADDED BUSPIRONE 5MG TID AND REMOVED THE LOVENOX, WHICH WAS HELD. GAVE CORRECTIONS TO PHARMACIST PORFIRIO FOR CLARIFICATION.
--- NOTE | 2019-02-27 10:01 | Physical Therapy Evaluation ---
PT Evaluation-General Medical Diagnosis Admission Date Feb 26, 2019 at 07:43 Medical Diagnosis: SOB/sepsis/UTI Onset Date: Feb 26, 2019 Therapy Diagnosis Therapy Diagnosis: debility/weakness Height/Weight Height (Feet): 5 Height (Inches): 2.00 Weight (Pounds): 119 Weight (Ounces): 1.0 Precautions Precautions/Isolations: Standard Precautions Weight Bear Status Right Lower Extremity: Right Weight Bearing/Tolerated Left Lower Extremity: Left Weight Bearing/Tolerated Referral Physician: Vanna Reason for Referral: Evaluation/Treatment Medical History Pertinent Medical History: Atrial Fib, DM, Dementia, GERD, Rheumatoid Arthritis Current History EMS to [facility] secondary to SOB and fever Reviewed History: Yes Social History Home: Group Home Prior/Core FIM Prior Level of Function Therapy Code Descriptions/Definitions Functional [place] Measure: 0=Not Assessed/NA 4=Minimal Assistance 1=Total Assistance 5=Supervision or Setup 2=Maximal Assistance 6=Modified [place] 3=Moderate Assistance 7=Complete [place] Therapy Quality Codes: 6 Independent with activity with or without an assistive device 5 Patient requires set up or clean up by helper. Patient completes activity by themselves 4 Supervision or touching assist (CGA). [place] provide cues , steadying assist 3 The helper provides less than half the effort to complete the activity 2 The helper provides more than half the effort to complete the activity 1 Dependent. The helper does all the effort to complete an activity 7 Patient refused to complete or attempt activity 9 The patient did not perform the activity before the current illness or injury 88 Not attempted due to Medical conditions or safety concerns Functional Abilities and Goals: Independent: Patient completed the activities by him/herself, with or without an assistive device, with no assistance from a helper. Needed Some Help: Patient needed partial assistance from another person to complete activities. Dependent: A helper completed the activities for the patient. Unknown: Not Applicable: Bed Mobility: 1 Transfers (B,C,W/C) (FIM): 1 Indoor Mobility (Ambulation): Dependent Prior Devices Use: Manual wheelchair, Mechanical lift PT Evaluation-Current Subjective Patient agrees to PT. Objective Patient Orientation: Confused Problem Solving: Poor Attachments: IV ROM/Strength ROM Lower Extremities bilateral LE WFL Strength Lower Extremities 2-/5 grossly bilateral LE Integumentary/Posture Integumentary refer to nursing notes Bowel Incontinence: Yes Bladder Incontinence: Yes Posture flexed trunk due to dependency Neuromuscular (Tone, Coordination, Reflexes) extension tone, severely diminished coordination Sensory Vision: Functional Hearing: Functional Sensation Right Lower Extremit: Impaired Sensation Left Lower Extremity: Impaired Transfers Therapy Code Descriptions/Definitions Functional [place] Measure: 0=Not Assessed/NA 4=Minimal Assistance 1=Total Assistance 5=Supervision or Setup 2=Maximal Assistance 6=Modified [place] 3=Moderate Assistance 7=Complete [place] Transfers (B, C, W/C) (FIM): 1 Scootin Rollin Supine to/from Sit: 1 Sit to/from Stand: 1 bed t/f WC(FIM only if WC use): 1 PT performed SPT dependent assist x 2, however, a dina lift is more appropriate and is utilized at NH/patient incontinent BM requiring dependent assist to cleanse and change patient. Gait Mode of Locomotion: Wheelchair Anticipated Mode of Locomotion: Wheelchair Balance Sitting Static: Poor Sitting Dynamic: Poor Standing Static: Poor Standing Dynamic: Poor Assessment/Needs 79 y.o. female, will be seen short term by skilled PT to address functional strength to improve current LOF. Patient is dependent PLOF with requires Dina lift for safety with mobility. Rehab Potential: Guarded PT Short Term Goals Short Term Goals Time Frame: Mar 03, 2019 Transfers (B,C,W/C) (FIM): 1 PT Plan Problem List Problem List: Activity Tolerance, Functional Strength, Safety, Balance, Transfer, Bed Mobility Treatment/Plan Treatment Plan: Continue Plan of Care Treatment Plan: Bed Mobility, Education, Functional Activity Ralph, Functional Strength, Safety, Therapeutic Exercise Treatment Duration: Mar 03, 2019 Frequency: 5 times per week Estimated Hrs Per Day: .25 hour per day Patient and/or Family Agrees t: Yes Discharge Recommendations Therapy D/C Recommendations: Group Home Placement, [facility] (TCU/NH) Time/GCodes Time In: 907 Time Out: 931 Total Billed Treatment Time: 24 Total Billed Treatment 1 visit EVModC 13 min FA 11 min MOISE SIMEON PT Feb 27, 2019 10:01
--- NOTE | 2019-02-27 11:35 | Progress Note - Hospitalist ---
Subjective HPI/CC On Admission Date Seen by Provider: Feb 27, 2019 Time Seen by Provider: 11:35 Yu Anand is an 79yoF who presented from [facility] in [place] with fever and found to have sepsis due to urinary tract infection. She reports dysuria, frequency, and urgency. She has occasional functional incontinence which has been more frequent lately. She reports fevers and chills. She denies dyspnea and cough. She denies abdominal pain, nausea, and, vomiting. She reports diarrhea for which she has been treated with Imodium and has improved. She denies any skin rash. She denies headache, vision changes, chest pain, and palpitations. She had a prolonged hospitalization earlier this year due to a bleeding ulcer which required multiple endoscopies. 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 She had a PEG placed due to malnutrition which is still in place but not currently being used. Subjective/Events-last exam Pt reports not feeling well still. Recalls history of poor health this year and significant debility from critical illness. States trach out x3 weeks and PEG to be out soon. Focused Exam Lactate Level 02/26/19 05:40: Lactic Acid Level 1.05 02/26/19 09:40: Lactic Acid Level 0.95 Time of Focused Exam: 07:15 Objective Exam Vital Signs Vital Signs Date Time Temp Pulse Resp B/P (MAP) Pulse Ox O2 Delivery O2 Flow Rate FiO2 02/27/19 12:00 100.2 86 20 137/73 (94) 96 Room Air 02/26/19 16:53 2.00 02/26/19 05:40 96 Capillary Refill : Less Than 3 Seconds General Appearance: No Apparent Distress, Chronically ill, Cachetic Neck: Other (trach site covered in bandage) Respiratory: Lungs Clear, No Respiratory Distress Cardiovascular: Regular Rate, Rhythm, No Murmur Neurologic/Psychiatric: Alert, Oriented x3, Normal Mood/Affect Results/Procedures Lab Laboratory Tests 02/26/19 15:55 02/27/19 05:30 Patient resulted labs reviewed. Imaging: Reviewed Imaging Films, Reviewed Imaging Report Assessment/Plan Assessment and Plan Assess & Plan/Chief Complaint Sepsis due to urinary tract infection Pyelonephritis Leukocytosis resolving, fever curve trending down -Blood cultures pending, urine culture GNR -Continue Rocephin Start probiotic Hypokalemia- resolved Hyperglycemia -BS remain elevated -No history of diabetes -A1c pending -Sliding scale Critical Illness Myopathy -From [facility] [place] -PT/OT Atelectasis -IS ordered Chronic Respiratory Failure - Trach out x 3 weeks, tolerating well Dysphagia - PEG in place, Dr Talamantes consulted - Speech Consulted History of severe GI bleed - Avoid Lovenox Anemia - Drop from yesterday likely dilutional - Trend FEN/GI/PPX - SCDs - PPI per home meds - CLD until Speech has seen - 1/2 NS +20KCL at 50ml/hr Diagnosis/Problems Diagnosis/Problems (1) Sepsis due to urinary tract infection Status: Acute (2) Myopathy Status: Chronic (3) Hyperglycemia Status: Acute (4) Hypokalemia Status: Acute (5) GERD (gastroesophageal reflux disease) Status: Chronic (6) Transfusion history (7) Anemia due to acute blood loss Status: Acute (8) PEG (percutaneous endoscopic gastrostomy) status Clinical Quality Measures DVT/VTE Risk/Contraindication: Risk Factor Score Per Nursin RFS Level Per Nursing on Admit: 4+=Very High GLENN SUN MD Feb 27, 2019 11:35 am
--- NOTE | 2019-02-27 12:31 | Consultation - Surgery ---
PIERRE ALEXIS,MED STUDENT 02/27/19 1230: History of Present Illness History of Present Illness Patient Consulted On(tan/time) 02/27/19 11:40 Date Seen by Provider: Feb 27, 2019 Time Seen by Provider: 11:40 History of Present Illness Consultation as requested by Dr. Lutz to discuss PEG tube removal. Patient seen and evaluated in med/surg. [facility] [place] [facility] due to UTI. 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 She had a PEG tube placed due to malnutrition which is not currently being used. She would like to know when this can be removed. No other concerns or complaints at this time. No family at bedside. Allergies and Home Medications Allergies Uncoded Allergies: UNKNOWN BLADDER MED (Allergy, Unknown, 10/03/18) none (Adverse Reaction, Unknown, 08/20/14) Home Medications Acetaminophen 650 Mg Tablet.er, 650 MG PO Q6H PRN for PAIN-MILD, (Reported) Buspirone HCl 5 Mg Tablet, 5 MG PO TID, (Reported) Cholecalciferol (Vitamin D3) 1,000 Unit Capsule, 2,000 UNIT PO DAILY, (Reported) Folic Acid 1 Mg Tablet, 1 MG PO DAILY, (Reported) Hydrocodone Bit/Acetaminophen 1 Ea Tablet, 1 TAB PO Q4H PRN for PAIN-MODERATE, (Reported) Ipratropium/Albuterol Sulfate 3 Ml Ampul.neb, 3 ML NEB Q6H PRN for SHORTNESS OF BREATH, (Reported) Lactobacillus Acidophilus/Pect 1 Each Capsule, 1 CAP PO BID, (Reported) Lidocaine 1 Each Adh..patch, 1 PATCH TP DAILY, (Reported) 4% PATCH - APPLY TO LEFT SHOULDER Loperamide HCl 2 Mg Tablet, PO UD PRN for DIARRHEA, (Reported) TAKE 2 TABLETS AFTER FIRST LOOSE STOOL, THEN 1 NEEDED MAX OF 4 DOSES Metoprolol Tartrate 25 Mg Tablet, 12.5 MG PO BID, (Reported) HOLD IF SBP <100 OR PULSE <60 Multivitamin 1 Each Tablet, 1 TAB PO DAILY, (Reported) Ondansetron 4 Mg Tab.rapdis, 4 MG PO Q4H PRN for NAUSEA/VOMITING-1ST LINE, (Reported) Pantoprazole Sodium 40 Mg Tablet.dr, 40 MG PO DAILY, (Reported) Roflumilast 500 Mcg Tablet, 500 MCG PO DAILY, (Reported) Sildenafil Citrate 20 Mg Tablet, 20 MG PO TID, (Reported) Sodium Bicarbonate 325 Mg Tablet, 325 MG PEG UD PRN for PEG TUBE CLOG, (Reported) Sucralfate 1 Gm Tablet, 1 GM PO Q6H, (Reported) Patient Home Medication List Home Medication List Reviewed: Yes Past Mvlgnht-Oceobb-Tjerok Hx Patient Social History 2nd Hand Smoke Exposure: No Recent Foreign Travel: No Contact w/Someone Who Travel: No Recent Infectious Disease Expo: No Recent Hopitalizations: No Immunizations Up To Date Tetanus Booster (TDap): More than 5yrs PED Vaccines UTD: No Date of Pneumonia Vaccine: Aug 20, 2013 Date of Influenza Vaccine: Apr 19, 2014 Seasonal Allergies Seasonal Allergies: No Surgeries History of Surgeries: Yes (RIGHT HIP REPLACEMENT, NECK SURGERY, EXPLORATORY ABD SURGERY) Surgeries: Joint Replacement Respiratory History of Respiratory Disorde: Yes (RESPIRATORY DISTRESS WITH CURRENT TRACH) Respiratory Disorders: Pneumonia Cardiovascular History of Cardiac Disorders: Yes Neurological History of Neurological Disord: Yes Neurological Disorders: Dementia Reproductive System Hx Reproductive Disorders: No Sexually Transmitted Disease: No HIV/AIDS: No Female Reproductive Disorders: Denies Genitourinary History of Genitourinary Disor: Yes Genitourinary Disorders: UTI-Chronic Gastrointestinal History of Gastrointestinal Di: Yes Gastrointestinal Disorders: Gastroesophageal Reflux, Gastrointestinal Bleed Musculoskeletal History of Musculoskeletal Dis: Yes Musculoskeletal Disorders: Degenerate Disk Disease, Rheumatoid Arthritis Endocrine History of Endocrine Disorders: Yes Endocrine Disorders: Diabetes, Non-Insulin dep HEENT History of HEENT Disorders: Yes HEENT Disorders: Cataract Loss of Vision: Denies Hearing Impairment: Denies Cancer History of Cancer: No Psychosocial History of Psychiatric Problem: No Integumentary History of Skin or Integumenta: No Blood Transfusions History of Blood Disorders: No Adverse Reaction to a Blood Tr: No Family Medical History Significant Family History: Other Conditions/Hx Family Medial History: Patient reports no known family medical history. Review of Systems-General Constitutional: no symptoms reported EENTM: no symptoms reported Respiratory: no symptoms reported Cardiovascular: no symptoms reported Gastrointestinal: see HPI Genitourinary: see HPI Musculoskeletal: no symptoms reported Skin: no symptoms reported Psychiatric/Neurological: No Symptoms Reported Physical Exam-General Problems Physical Exam Vital Signs Vital Signs - First Documented 02/26/19 02/26/19 05:40 05:46 Temp 104.4 Pulse 130 Resp 30 B/P (MAP) 159/63 (95) Pulse Ox 92 O2 Delivery Nasal Cannula O2 Flow Rate 2.00 FiO2 96 Capillary Refill : Less Than 3 Seconds General Appearance: WD/WN, no apparent distress HEENT: PERRL/EOMI Neck: non-tender, full range of motion, supple, normal inspection Respiratory: chest non-tender, no respiratory distress, no accessory muscle use Cardiovascular: normal peripheral pulses, regular rate, rhythm Gastrointestinal: non tender, soft, other (PEG tube in place) Rectal: deferred Back: normal inspection, no CVA tenderness Extremities: non-tender, normal inspection Neurologic/Psychiatric: no motor/sensory deficits, alert, normal mood/affect, oriented x 3 Skin: normal color, warm/dry Lymphatic: no adenopathy Data Review Labs Laboratory Tests 02/26/19 15:55: Sodium Level 143, Potassium Level 3.2L, Chloride Level 110#H, Carbon Dioxide Level 22, Anion Gap 11, Blood Urea Nitrogen 9, Creatinine 0.68, Estimat Glomerular Filtration Rate > 60, BUN/Creatinine Ratio 13, Glucose Level 270H, Calcium Level 8.3L, Magnesium Level 1.4L 02/26/19 16:07: Glucometer 253H 02/26/19 21:06: Glucometer 189H 02/27/19 05:30: Sodium Level 140, Potassium Level 4.3, Chloride Level 110H, Carbon Dioxide Level 21, Anion Gap 9, Blood Urea Nitrogen 9, Creatinine 0.64, Estimat Glomerular Filtration Rate > 60, BUN/Creatinine Ratio 14, Glucose Level 195H, Calcium Level 8.5, Magnesium Level 2.6H, White Blood Count 9.9, Red Blood Count 3.67L, Hemoglobin 10.5L, Hematocrit 34L, Mean Corpuscular Volume 94, Mean Corpuscular Hemoglobin 29, Mean Corpuscular Hemoglobin Concent 31L, Red Cell Distribution Width 15.0H, Platelet Count 145, Mean Platelet Volume 10.2, Neutrophils (%) (Auto) 85H, Lymphocytes (%) (Auto) 8L, Monocytes (%) (Auto) 7, Eosinophils (%) (Auto) 0, Basophils (%) (Auto) 0, Neutrophils # (Auto) 8.4H, Lymphocytes # (Auto) 0.8L, Monocytes # (Auto) 0.7, Eosinophils # (Auto) 0.0, Basophils # (Auto) 0.0 02/27/19 05:46: Glucometer 186H 02/27/19 11:02: Glucometer 330H Microbiology 02/26/19 Urine Culture - Preliminary, Resulted Gram Negative [place] Assessment/Plan Assessment/Plan Assessment/Plan Sepsis due to UTI PEG tube in place Continue ceftriaxone and conservative management. Advised patient that PEG tubes are typically left in place for 3 months. I will follow up with her outpatient in 3 weeks for PEG tube removal. Clinical Quality Measures DVT/VTE Risk/Contraindication: Risk Factor Score Per Nursin RFS Level Per Nursing on Admit: 4+=Very High ROBERT TALAMANTES DO 02/27/19 1140: History of Present Illness History of Present Illness History of Present Illness Patient with sepsis pyelonephritis. Patient family is requesting that gastrostomy tube be removed. She has had significant medical issues secondary to upper gi bleed, requiring endoscopies and surgical intervention. She was vent dependent and had tracheostomy and gastrostomy tube placed. Patient family is wanting to have gastrostomy tube removed. No family at bedside. Patient is not using gastrostomy tube currently. She states it is not bothering her. She currently is feeling better and sitting in chair. No other complaints. Denies n/v fever sweats chills shortness of breath or chest pain at this time. Allergies and Home Medications Allergies Uncoded Allergies: UNKNOWN BLADDER MED (Allergy, Unknown, 10/03/18) none (Adverse Reaction, Unknown, 08/20/14) Home Medications Acetaminophen 650 Mg Tablet.er, 650 MG PO Q6H PRN for PAIN-MILD, (Reported) Buspirone HCl 5 Mg Tablet, 5 MG PO TID, (Reported) Cholecalciferol (Vitamin D3) 1,000 Unit Capsule, 2,000 UNIT PO DAILY, (Reported) Folic Acid 1 Mg Tablet, 1 MG PO DAILY, (Reported) Hydrocodone Bit/Acetaminophen 1 Ea Tablet, 1 TAB PO Q4H PRN for PAIN-MODERATE, (Reported) Ipratropium/Albuterol Sulfate 3 Ml Ampul.neb, 3 ML NEB Q6H PRN for SHORTNESS OF BREATH, (Reported) Lactobacillus Acidophilus/Pect 1 Each Capsule, 1 CAP PO BID, (Reported) Lidocaine 1 Each Adh..patch, 1 PATCH TP DAILY, (Reported) 4% PATCH - APPLY TO LEFT SHOULDER Loperamide HCl 2 Mg Tablet, PO UD PRN for DIARRHEA, (Reported) TAKE 2 TABLETS AFTER FIRST LOOSE STOOL, THEN 1 NEEDED MAX OF 4 DOSES Metoprolol Tartrate 25 Mg Tablet, 12.5 MG PO BID, (Reported) HOLD IF SBP <100 OR PULSE <60 Multivitamin 1 Each Tablet, 1 TAB PO DAILY, (Reported) Ondansetron 4 Mg Tab.rapdis, 4 MG PO Q4H PRN for NAUSEA/VOMITING-1ST LINE, (Reported) Pantoprazole Sodium 40 Mg Tablet.dr, 40 MG PO DAILY, (Reported) Roflumilast 500 Mcg Tablet, 500 MCG PO DAILY, (Reported) Sildenafil Citrate 20 Mg Tablet, 20 MG PO TID, (Reported) Sodium Bicarbonate 325 Mg Tablet, 325 MG PEG UD PRN for PEG TUBE CLOG, (Reported ) Sucralfate 1 Gm Tablet, 1 GM PO Q6H, (Reported) Patient Home Medication List Home Medication List Reviewed: Yes Past Xlqjkwh-Hwtknj-Cdpxec Hx Surgeries History of Surgeries: Yes (pyloromyotomy c control bleed GDA/ulcer) Genitourinary Genitourinary Disorders: UTI-Chronic Family Medical History Significant Family History: No Pertinent Family Hx Family Medial History: Patient reports no known family medical history. Review of Systems-General Constitutional: no symptoms reported EENTM: no symptoms reported Respiratory: no symptoms reported Cardiovascular: no symptoms reported Gastrointestinal: see HPI Genitourinary: see HPI Musculoskeletal: no symptoms reported Skin: no symptoms reported Psychiatric/Neurological: No Symptoms Reported Physical Exam-General Problems Physical Exam General Appearance: WD/WN, no apparent distress HEENT: PERRL/EOMI Neck: non-tender, full range of motion, supple, normal inspection (trach hx) Respiratory: chest non-tender, no respiratory distress, no accessory muscle use Cardiovascular: regular rate, rhythm Gastrointestinal: non tender, soft, other (PEG tube in place) Rectal: deferred Back: normal inspection, no CVA tenderness Extremities: non-tender, normal inspection Neurologic/Psychiatric: no motor/sensory deficits, alert, normal mood/affect Skin: normal color, warm/dry Lymphatic: no adenopathy Assessment/Plan Assessment/Plan Assessment/Plan sepsis due to UTI gastrostomy due to malnutrition history of GI bleed family wanting gastrostomy tube removed with patient with sepsis and other comorbities would hold off at the time. optimally gastrostomy tube would be in for 3 months and patient in good nutritional status vs being sick/septic will have patient follow up in about 3 weeks and will likely pull gastrostomy tube at that time or in near future. Supervisory-Addendum Brief Verification & Attestation Time: Verification & Attestat.: 18:45 Participated in pt care: history, MDM, physical Personally performed: exam, history, MDM, supervision of care Care discussed with: Medical Student Procedures: n/a Results interpretation: Verified all documentation Verification and Attestation of Medical Student E/M Service A medical student performed and documented this service in my presence. I reviewed and verified all information documented by the medical student and made modifications to such information, when appropriate. I personally performed the physical exam and medical decision making. Robert Talamantes, Feb 27, 2019,18:45 PIERRE ALEXIS,MED STUDENT Feb 27, 2019 12:30 ROBERT TALAMANTES DO Feb 27, 2019 18:40
--- NOTE | 2019-02-27 13:55 | Occupational Therapy Eval ---
OT Evaluation-General/PLF Medical Diagnosis Admission Date Feb 26, 2019 at 07:43 Medical Diagnosis: SOB/sepsis/UTI Onset Date: Feb 26, 2019 Therapy Diagnosis Therapy Diagnosis: imapired ADLs and mobility Height/Weight Height (Feet): 5 Height (Inches): 2.00 Weight (Pounds): 119 Weight (Ounces): 1.0 Precautions Precautions/Isolations: Fall Prevention, Standard Precautions Safety Interventions: None Weight Bear Status Weight Bearing Restriction: Weight Bearing/Tolerated Referral Physician: Vanna Referral Reason: Activity Tolerance, Self Care, Evaluation/Treatment, Strengthening/ROM Medical History Pertinent Medical History: Atrial Fib, DM, Dementia, GERD, Rheumatoid Arthritis Current History per H&P: "Yu Anand is an 79yoF who presented from [facility] in [place] with fever and found to have sepsis due to urinary tract infection. She reports dysuria, frequency, and urgency. She has occasional functional incontinence which has been more frequent lately. She reports fevers and chills. She denies dyspnea and cough. She denies abdominal pain, nausea, and, vomiting. She reports diarrhea for which she has been treated with Imodium and has improved. She denies any skin rash. She denies headache, vision changes, chest pain, and palpitations. She had a prolonged hospitalization earlier this year due to a bleeding ulcer which required multiple endoscopies. 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 She had a PEG placed due to malnutrition which is still in place but not currently being used." Reviewed History: Yes Social History Home: [facility] ADL-Prior Level of Function Therapy Code Descriptions/Definitions Functional [place] Measure: 0=Not Assessed/NA 4=Minimal Assistance 1=Total Assistance 5=Supervision or Setup 2=Maximal Assistance 6=Modified [place] 3=Moderate Assistance 7=Complete [place] Therapy Quality Codes: 6 Independent with activity with or without an assistive device 5 Patient requires set up or clean up by helper. Patient completes activity by themselves 4 Supervision or touching assist (CGA). [place] provide cues , steadying assist 3 The helper provides less than half the effort to complete the activity 2 The helper provides more than half the effort to complete the activity 1 Dependent. The helper does all the effort to complete an activity 7 Patient refused to complete or attempt activity 9 The patient did not perform the activity before the current illness or injury 88 Not attempted due to Medical conditions or safety concerns Functional Abilities and Goals: Independent: Patient completed the activities by him/herself, with or without an assistive device, with no assistance from a helper. Needed Some Help: Patient needed partial assistance from another person to complete activities. Dependent: A helper completed the activities for the patient. Unknown: Not Applicable: ADL PLOF Comments while in inpt rehab pt was able to neli shirt, thread ayush LE, groom seated in chair, and feed self. post rehab pt d/c to SNF. pt reports at SNF nursing staff completes all ADLS for pt and she assist with grooming and eating. Self Care: Needed Some Help Functional Cognition: Dependent Drive Self: No OT Current Status Subjective pt sitting in recliner chair. pt reports no pain. pt agreed to OT evaluation session. Pain Numeric Pain Scale: 0-No Pain Mental Status/Objective Patient Orientation: Person Attachments: IV Current Glasses/Contacts: Yes Hearing Aids: No Dentures/Partials: No Hand Dominance: Left Upper Extremity ROM WFL Upper Extremity Coordination decrease ayush opposition, decrease ayush finger to nose test Upper Extremity Sensation light touch: WFL Upper Extremity Strength 3/5 MMT Edema: noted edema in ayush hands ADL-Treatment Therapy Code Descriptions/Definitions Functional [place] Measure: 0=Not Assessed/NA 4=Minimal Assistance 1=Total Assistance 5=Supervision or Setup 2=Maximal Assistance 6=Modified [place] 3=Moderate Assistance 7=Complete [place] Therapy Quality Codes: 6 Independent with activity with or without an assistive device 5 Patient requires set up or clean up by helper. Patient completes activity by themselves 4 Supervision or touching assist (CGA). [place] provide cues , steadying assist 3 The helper provides less than half the effort to complete the activity 2 The helper provides more than half the effort to complete the activity 1 Dependent. The helper does all the effort to complete an activity 7 Patient refused to complete or attempt activity 9 The patient did not perform the activity before the current illness or injury 88 Not attempted due to Medical conditions or safety concerns Eating (FIM): 3 Grooming (FIM): 3 Toileting (FIM): 1 Transfers (B, C, W/C) (FIM): 1 (radha lift ) pt dep for dressing, toileting, bathing and functional transfers. pt requires radha lift at [facility] home. Education OT Patient Education: Progress toward Goal/Update tx plan, Purpose of tx/functional activities Teaching Recipient: Patient Teaching Methods: Discussion Response to Teaching: Verbalize Understanding OT Short Term Goals Short Term Goals Eating(FIM): 5 Grooming(FIM): 5 Bathing(FIM): 4 (UB only ) Bathing Location: L Arm, R Arm, Chest, Abdomen 1=Demonstrate adherence to instructed precautions during ADL tasks. 2=Patient will verbalize/demonstrate understanding of assistive devices/modifications for ADL. 3=Patient will improve strength/tolerance for activity to enable patient to perform ADL's. OT Greige Goods Marker Goals [facility] Goals Time Frame: Mar 13, 2019 Eating (FIM): 6 Grooming(FIM): 6 (seated) Bathing(FIM): 5 (UB only) Bathing Location: L Upper Leg, R Upper Leg, Chest, Abdomen Additional Goals: 1-Demonstrate ADL Tasks, 2-Verbalize Understanding, 3- ImproveStrength/Ralph 1=Demonstrate adherence to instructed precautions during ADL tasks. 2=Patient will verbalize/demonstrate understanding of assistive devices/modifications for ADL. 3=Patient will improve strength/tolerance for activity to enable patient to perform ADL's. OT Education/Plan Problem List/Assessment Assessment: Decreased Activ Tolerance, Decreased Safety Aware, Decreased UE Strength, Dependent Transfers, Edema, Impaired Bed Mobility, Impaired Cognition, Impaired Coordination, Impaired Funct Balance, Impaired I ADL's, Impaired Self- Care Skills, Restricted Funct UE ROM Discharge Recommendations Plan/Recommendations: Continue POC Therapy D/C Recommendations: 24 hr Supervision, [facility] (TCU/NH) Treatment Plan/Plan of Care Treatment,Training & Education: Yes Patient would benefit from OT for education, treatment and training to promote independence in ADL's, mobility, safety and/or upper extremity function for ADL's. Plan of Care: ADL Retraining, Functional Mobility, Group Exercise/Act as Ind, UE Funct Exercise/Act Treatment Duration: Mar 13, 2019 Frequency: 5 times per week Estimated Hrs Per Day: .25 hour per day Agreement: Yes Rehab Potential: Guarded Time/GCodes Start Time: 13:35 Stop Time: 13:55 Billed Treatment Time [facility] 20 minutes, ANGELY CHOUDHURY OT Feb 27, 2019 13:55
[2019-02-27] MEDS: ROFLUMILAST 500 MCG TAB (DALIRESP) PO SCH (14:00)
--- NOTE | 2019-02-27 14:18 | NUR ---
TOMAS/PER Payton with [facility] called for an update. Provided her with what information could and that patient was not discharging this day. Facility is holding a bed at the facility for the patient.
--- NOTE | 2019-02-27 15:29 | NUR ---
Pastoral care visit, Pts was at bedside, known to me from prior visit, he updated me on pts journey. I provided support and encouragement.
[2019-02-27] MEDS: LACTOBACILLUS ACIDOPHILUS (PROBIOTIC) CAPSULE PO SCH (17:50)
[2019-02-27] MEDS: SUCRALFATE 1 GM (CARAFATE) TAB PO SCH ×2 (17:50→23:07)
[2019-02-27] MEDS ORDERED: NON-FORMULARY MEDICATION 1 EA EA (Buspirone HCl 5 MG) PO SCH (21:00)
[2019-02-27] MEDS: POLYETHYLENE GLYCOL 17 GM (MIRALAX) PACK PO SCH (21:02)
[2019-02-27] MEDS: busPIRone 5 MG (BUSPAR) TAB PO SCH (21:03)
[2019-02-28] VITALS (7 sets, daily range): BP systolic 114–158; BP diastolic 62–82
[2019-02-28] MEDS: HYDROcodone/APAP 7.5 MG/325 MG (LORTAB, LORCET PLUS) TABLET PO PRN ×2 (00:33→21:45)
[2019-02-28] MEDS: inSUlin ASPART (NovoLOG) 1 UNIT/0.01 ML (CHARGE PER UNIT) SC SCH ×4 (06:01→21:46)
[2019-02-28] MEDS: SUCRALFATE 1 GM (CARAFATE) TAB PO SCH ×4 (06:27→23:59)
[2019-02-28] MEDS: LACTOBACILLUS ACIDOPHILUS (PROBIOTIC) CAPSULE PO SCH ×3 (06:27→17:18)
[2019-02-28 07:13] LABS: BASOPHILS % (AUTO) 0 % (0-10); EOSINOPHILS # (AUTO) 0.2 10^3/uL (0.0-0.3); EOSINOPHILS % (AUTO) 3 % (0-10); HEMATOCRIT 31 % (35-52); HEMOGLOBIN 9.4 G/DL (11.5-16.0); LYMPHOCYTES % (AUTO) 15 % (12-44); MEAN CORPUSCULAR HEMOGLOBIN 28 PG (25-34); MEAN CORPUSCULAR HGB CONC 30 G/DL (32-36); MEAN CORPUSCULAR VOLUME 93 FL (80-99); MEAN PLATELET VOLUME 10.2 FL (7.4-10.4); MONOCYTES # (AUTO) 0.7 X 10^3 (0.0-1.0); MONOCYTES % (AUTO) 10 % (0-12); NEUTROPHILS # (AUTO) 5.1 X 10^3 (1.8-7.8); NEUTROPHILS % (AUTO) 73 % (42-75); PLATELET COUNT 167 10^3/uL (130-400); RED CELL DISTRIBUTION WIDTH 14.9 % (10.0-14.5)
[2019-02-28 07:29] LABS: BUN/CREATININE RATIO 12; CALCIUM 8.5 MG/DL (8.5-10.1); CARBON DIOXIDE 21 MMOL/L (21-32); CHLORIDE 109 MMOL/L (98-107); GFR ESTIMATED > 60; GLUCOSE 152 MG/DL (70-105); POTASSIUM 3.7 MMOL/L (3.6-5.0); SODIUM 139 MMOL/L (135-145)
--- NOTE | 2019-02-28 10:04 | Progress Note - Hospitalist ---
Subjective HPI/CC On Admission Date Seen by Provider: Feb 28, 2019 Time Seen by Provider: 08:30 Yu Anand is an 79yoF who presented from [facility] in [place] with fever and found to have sepsis due to urinary tract infection. She reports dysuria, frequency, and urgency. She has occasional functional incontinence which has been more frequent lately. She reports fevers and chills. She denies dyspnea and cough. She denies abdominal pain, nausea, and, vomiting. She reports diarrhea for which she has been treated with Imodium and has improved. She denies any skin rash. She denies headache, vision changes, chest pain, and palpitations. She had a prolonged hospitalization earlier this year due to a bleeding ulcer which required multiple endoscopies. 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 She had a PEG placed due to malnutrition which is still in place but not currently being used. Subjective/Events-last exam Pt reports feeling better. No complaints. Discussed urine culture results and plan to await sensitivity. Focused Exam Lactate Level 02/26/19 05:40: Lactic Acid Level 1.05 02/26/19 09:40: Lactic Acid Level 0.95 Time of Focused Exam: 07:15 Objective Exam Vital Signs Vital Signs Date Time Temp Pulse Resp B/P (MAP) Pulse Ox O2 Delivery O2 Flow Rate FiO2 02/28/19 08:00 98.4 91 20 138/82 (100) 97 Room Air 02/26/19 16:53 2.00 02/26/19 05:40 96 Capillary Refill : Less Than 3 Seconds General Appearance: No Apparent Distress, WD/WN Neck: Other Respiratory: Lungs Clear, No Respiratory Distress Cardiovascular: Regular Rate, Rhythm, No Murmur Neurologic/Psychiatric: Alert, Oriented x3 Results/Procedures Lab Laboratory Tests 02/28/19 05:47 Patient resulted labs reviewed. Imaging: Reviewed Imaging Films, Reviewed Imaging Report Assessment/Plan Assessment and Plan Assess & Plan/Chief Complaint Sepsis due to urinary tract infection Pyelonephritis -Leukocytosis resolving, fever curve trending down -Blood cultures NGTD urine culture- klebsiella pna -Continue Rocephin - Probiotic Hypokalemia- resolved Hyperglycemia -BS remain improving -A1c 6.3 -Sliding scale Critical Illness Myopathy -From [facility] -PT/OT Atelectasis -IS ordered Chronic Respiratory Failure - Trach out x 3 weeks, tolerating well Dysphagia - PEG in place, Dr Talamantes consulted - Speech Consulted History of severe GI bleed - Avoid Lovenox Anemia- normocytic - Trending down, but above transfusion threshold FEN/GI/PPX - SCDs - PPI per home meds - CLD until Speech has seen - Hep lock Diagnosis/Problems Diagnosis/Problems (1) Sepsis due to urinary tract infection Status: Acute (2) Myopathy Status: Chronic (3) Hyperglycemia Status: Acute (4) Hypokalemia Status: Acute (5) GERD (gastroesophageal reflux disease) Status: Chronic (6) Transfusion history (7) Anemia due to acute blood loss Status: Acute (8) PEG (percutaneous endoscopic gastrostomy) status Clinical Quality Measures DVT/VTE Risk/Contraindication: Risk Factor Score Per Nursin RFS Level Per Nursing on Admit: 4+=Very High GLENN SUN MD Feb 28, 2019 10:04 am
--- NOTE | 2019-02-28 10:26 | Physical Therapy Daily Note ---
PT Daily Note-Current Subjective Patient agrees to exercises. No c/o. Mental Status Patient Orientation: Person, Time Attachments: IV Transfers Therapy Code Descriptions/Definitions Functional [place] Measure: 0=Not Assessed/NA 4=Minimal Assistance 1=Total Assistance 5=Supervision or Setup 2=Maximal Assistance 6=Modified [place] 3=Moderate Assistance 7=Complete [place] Therapy Quality Codes: 6 Independent with activity with or without an assistive device 5 Patient requires set up or clean up by helper. Patient completes activity by themselves 4 Supervision or touching assist (CGA). [place] provide cues , steadying assist 3 The helper provides less than half the effort to complete the activity 2 The helper provides more than half the effort to complete the activity 1 Dependent. The helper does all the effort to complete an activity 7 Patient refused to complete or attempt activity 9 The patient did not perform the activity before the current illness or injury 88 Not attempted due to Medical conditions or safety concerns Transfers (B, C, W/C) (FIM): 1 Scootin Rollin repositioned to side lying right with pillow placement after exercises. Weight Bearing Right Lower Extremity: Right Weight Bearing/Tolerated Left Lower Extremity: Left Weight Bearing/Tolerated Exercises Supine Ex: Ankle pumps, Heel Slides, Straight leg raise, Hip abd/add Supine Reps: 30 (AAROM bilaterally in supine) Assessment Patient tolerated treatment and remained in bed positioned to side lying right with pillow placement for comfort. PT Short Term Goals Short Term Goals Time Frame: Mar 03, 2019 PT Plan Treatment/Plan Treatment Plan: Continue Plan of Care Treatment Plan: Bed Mobility, Education, Functional Activity Ralph, Functional Strength, Safety, Therapeutic Exercise Treatment Duration: Mar 03, 2019 Frequency: 5 times per week Estimated Hrs Per Day: .25 hour per day Patient and/or Family Agrees t: Yes Time/GCodes Time In: 1000 Time Out: 1012 Total Billed Treatment Time: 12 Total Billed Treatment 1 visit EX 12 min MOISE SIMEON PT Feb 28, 2019 10:26
[2019-02-28] MEDS: FOLIC ACID 1 MG TAB PO SCH (10:31)
[2019-02-28] MEDS: busPIRone 5 MG (BUSPAR) TAB PO SCH ×3 (10:31→21:45)
[2019-02-28] MEDS: PANTOPRAZOLE 40 MG (PROTONIX) TAB PO SCH (10:31)
[2019-02-28] MEDS: cefTRIAXone FOR IV USE 1,000 MG in WATER (STERILE) FOR INJECTION 10 ML IV SCH (10:31)
[2019-02-28] MEDS: meTOprolol TARTRATE 25 MG (LOPRESSOR) TABLET PO SCH ×2 (10:31→21:44)
[2019-02-28] MEDS: SILDENAFIL 20 MG (REVATIO) TAB NON-FORMULARY PO SCH ×3 (10:32→21:47)
--- NOTE | 2019-02-28 10:56 | ST Dysphagia Evaluation ---
Speech Evaluation-General Medical Diagnosis SOB/sepsis/UTI Onset Date: Feb 26, 2019 Therapy Diagnosis Therapy Diagnosis: Oropharyngeal Dysphagia Precautions Precautions: Aspiration Precautions/Isolations: Aspiration, Standard Precautions Referral Referring Physician: Dr. Lutz Reason for Referral: Evaluation/Treatment Medical History Pertinent Medical History: Atrial Fib, DM, Dementia, GERD, Rheumatoid Arthritis Dysphagia, PEG tube for nutrition/hydration/meds Current History UTI, sepsis Reviewed History: Yes Social History Home: Snf Current Living Status: Speech PLF/Current-Dysphagia Prior Level of Function The patient was in a SNF s/p hospitalization for quite some time due to a complicated medical status. At the time of discharge she was on a regular diet with thin liquids, no aspiration at that time. Subjective The patient was cooperative and pleasant with the Bedside Dysphagia Evaluation Cognitive Status Patient is oriented to all concepts. Oral Motor Skills Dentition: Natural Ability to Follow Directions: Good Patient was NPO pending BDE. Oral Expression Ability: No Impairment Face Facial Symmetry: Symmetrical Oral-Facial Assessment Oral-Facial Dentition: Normal Labial Seal Description: Normal Smile: Normal Puff Cheeks: Normal Lingual Protrusion: Normal Lingual ROM: Normal Lingual Strength: Normal Pharynx Velopharyngeal Move.: Normal Volitional Dry Swallow: Yes Voluntary Cough: Yes Can Clear Throat Volitionally: Yes Dysphagia Evaluation Consistencies Presented: Regular, Thin Liquid, Mechanical Soft, Pureed Oral phase is within normal limits Pharyngeal phase is within normal limits Swallowing Precautions: Alternate Liquids/Solids, Liquids from Straw, Small Bites and Sips, Sitting Upright 90 Degrees, Sitting 90 Degrees 30 Post Intake Dysphagia Evaluation Summary The patient was evaluated for swallow function per physician order. She was presented thin liquids via straw, small sips without difficulty. The patient was presented puree, mechanical soft and regular textures without difficulty. Patient demonstrates effective swallow and oral clear for all consistencies. Patient will be placed on a regular diet with thin liquids. No further dysphagia therapy is recommended at this time. Barriers to Learning None identified Speech-Plan Patient/Family Goals Patient/Family Goals: The patient will return to the SNF upon discharge. Treatment Plan Speech Therapy Treatment Plan: Discontinue ST The patient is on the same diet level as when previously discharged. Treatment Duration: Feb 28, 2019 Frequency: 1 time per week Estimated Hrs Per Day: .25 hour per day Rehab Potential: Guarded Barriers to Learning: None identified Pt/Family Agrees to Plan: Yes Safety Risks/Education Teaching Recipient: Patient Teaching Methods: Demonstration, Discussion Response to Teaching: Verbalize Understanding, Return Demonstration Education Topics Provided: Safety of oral intake. Time Speech Therapy Time In: 08:15 Speech Therapy Time Out: 08:30 Total Billed Time: 15 Billed Treatment Time MatheusDEBRA BETHANIA ST Feb 28, 2019 10:56
--- NOTE | 2019-02-28 11:35 | Progress Note - Surgery ---
PIERRE ALEXIS,MED STUDENT 02/28/19 1135: Subjective Date Seen by a Provider: Feb 28, 2019 Time Seen by a Provider: 07:10 Subjective/Events-last exam Patient with sepsis pyelonephritis. She is feeling better today. She states she is still having some diarrhea but that has improved with imodium. No new complaints or concerns. Denies nausea, vomiting, fever, sweats, chills, SOB, or chest pain. States appointment was made in 3 weeks for outpatient PEG tube removal. No family at bedside. Focused Exam Lactate Level 02/26/19 05:40: Lactic Acid Level 1.05 02/26/19 09:40: Lactic Acid Level 0.95 Time of Focused Exam: 07:15 Objective Exam Vital Signs Date Time Temp Pulse Resp B/P (MAP) Pulse Ox O2 Delivery O2 Flow Rate FiO2 02/28/19 08:00 98.4 91 20 138/82 (100) 97 Room Air 02/28/19 07:00 85 02/28/19 03:35 99.6 99 20 114/67 (83) 95 Room Air 02/28/19 01:00 97 02/27/19 23:40 98.8 98 17 124/63 (83) 95 Room Air 02/27/19 20:59 109 160/80 (106) 02/27/19 20:00 Room Air 02/27/19 19:30 99.4 108 18 150/90 (110) 96 Room Air 02/27/19 19:00 106 02/27/19 18:51 Room Air 02/27/19 15:35 98.0 92 18 118/74 (89) 96 Room Air 02/27/19 13:00 114 02/27/19 12:00 100.2 86 20 137/73 (94) 96 Room Air I & O 02/28/19 07:00 Intake Total 1305 ml Balance 1305 ml Capillary Refill : Less Than 3 Seconds General Appearance: No Apparent Distress, WD/WN HEENT: PERRL/EOMI, Pharynx Normal Neck: Full Range of Motion, Normal Inspection, Non Tender, Supple Respiratory: Chest Non Tender, No Accessory Muscle Use, No Respiratory Distress Cardiovascular: Regular Rate, Rhythm, Normal Peripheral Pulses Gastrointestinal: non tender, soft, other (PEG tube in place) Extremity: Normal Inspection, Non Tender Neurologic/Psychiatric: Alert, Oriented x3, No Motor/Sensory Deficits, Normal Mood/Affect Skin: Normal Color, Warm/Dry Lymphatic: No Adenopathy Results Lab Laboratory Tests 02/27/19 16:38: Glucometer 196H 02/27/19 20:39: Glucometer 326H 02/28/19 05:25: Glucometer 174H 02/28/19 05:47: White Blood Count 7.0, Red Blood Count 3.32L, Hemoglobin 9.4L, Hematocrit 31L, Mean Corpuscular Volume 93, Mean Corpuscular Hemoglobin 28, Mean Corpuscular Hemoglobin Concent 30L, Red Cell Distribution Width 14.9H, Platelet Count 167, Mean Platelet Volume 10.2, Neutrophils (%) (Auto) 73, Lymphocytes (%) (Auto) 15, Monocytes (%) (Auto) 10, Eosinophils (%) (Auto) 3, Basophils (%) (Auto) 0, Neutrophils # (Auto) 5.1, Lymphocytes # (Auto) 1.0, Monocytes # (Auto) 0.7, Eosinophils # (Auto) 0.2, Basophils # (Auto) 0.0, Sodium Level 139, Potassium Level 3.7, Chloride Level 109H, Carbon Dioxide Level 21, Anion Gap 9, Blood Urea Nitrogen 7, Creatinine 0.60, Estimat Glomerular Filtration Rate > 60, BUN/Creatinine Ratio 12, Glucose Level 152H, Calcium Level 8.5 Microbiology 02/26/19 Blood Culture - Preliminary, Resulted No growth 02/26/19 Urine Culture - Preliminary, Resulted Klebsiella pneumoniae Assessment/Plan Assessment/Plan Assessment/Plan sepsis due to UTI gastrostomy due to malnutrition history of GI bleed with patient with sepsis and other comorbities would hold off gastrostomy tube removal optimally gastrostomy tube would be in for 3 months and patient in good nu tritional status vs being sick/septic Patient has appointment outpatient in 3 weeks, and will likely pull gastrostomy tube at that time or in near future. Clinical Quality Measures DVT/VTE Risk/Contraindication: Risk Factor Score Per Nursin RFS Level Per Nursing on Admit: 4+=Very High ROBERT TALAMANTES DO 02/28/19 1142: Subjective Subjective/Events-last exam Doing well. No new complaints. Dysphagia eval done today, okay for reg diet. No abdominal pain. Denies n/v fever sweats chills shortness of breath or chest pain at this time. Objective Exam General Appearance: No Apparent Distress HEENT: PERRL/EOMI Neck: Full Range of Motion, Normal Inspection, Non Tender, Supple Respiratory: Chest Non Tender, No Accessory Muscle Use, No Respiratory Distress Cardiovascular: Regular Rate, Rhythm Gastrointestinal: non tender, soft, other (Gastrostomy tube in place) Extremity: Normal Inspection, Non Tender Neurologic/Psychiatric: Alert, Oriented x3, No Motor/Sensory Deficits, Normal Mood/Affect Skin: Normal Color, Warm/Dry Lymphatic: No Adenopathy Assessment/Plan Assessment/Plan Assessment/Plan uti, gastrostomy tube for hx malnutrition, hx gi bleed will plan for outpatient removal of gastrostomy tube will sign off, call if needed. Supervisory-Addendum Brief Verification & Attestation Time: Verification & Attestat.: 11:41 Participated in pt care: history, MDM, physical Personally performed: exam, history, MDM, supervision of care Care discussed with: Medical Student Procedures: n/a Results interpretation: Verified all documentation Verification and Attestation of Medical Student E/M Service A medical student performed and documented this service in my presence. I reviewed and verified all information documented by the medical student and made modifications to such information, when appropriate. I personally performed the physical exam and medical decision making. Robert Talamantes, Feb 28, 2019,11:41 PIERRE ALEXIS,MED STUDENT Feb 28, 2019 11:35 ROBERT TALAMANTES DO Feb 28, 2019 11:42
--- NOTE | 2019-02-28 13:20 | Occupational Ther Daily Note ---
OT Current Status-Daily Note Subjective No pain reported. Appearance pt. in bed. Agrees to work with OT. Mental Status/Objective Patient Orientation: Person, Place Therapy Code Descriptions/Definitions Functional [place] Measure: 0=Not Assessed/NA 4=Minimal Assistance 1=Total Assistance 5=Supervision or Setup 2=Maximal Assistance 6=Modified [place] 3=Moderate Assistance 7=Complete [place] ADL-Treatment Eating (FIM): 4 (Pt. is able to finish eating her peaches and some applesauce, with encouragement from OT. Pt. utilizes built up handles and OT positions containers in front of her on table. Assist at times for positioning.) Grooming (FIM): 4 (Min assist to wash face with warm washcloth.) Toileting (FIM): 1 (Pt. incontinent of BM in bed. Required dependent assist to cleanse [place] area.) Transfers (B, C, W/C) (FIM): 1 (Dependent assist to roll back and forth in bed. Pt. does attempt to assist by holding bedrails, but requires assist to actually roll and position self.) Other Treatment Pt. positioned on side to comfort level, with call light and water in place. Education OT Patient Education: Correct positioning, Modified ADL techniques, Progress toward Goal/Update tx plan, Purpose of tx/functional activities, Reviewed precautions, Rehab process, Transfer techniques Teaching Recipient: Patient Teaching Methods: Demonstration, Discussion Response to Teaching: Verbalize Understanding, Return Demonstration OT Short Term Goals Short Term Goals Eating(FIM): 5 Grooming(FIM): 5 Bathing(FIM): 4 (UB only ) Bathing Location: L Arm, R Arm, Chest, Abdomen 1=Demonstrate adherence to instructed precautions during ADL tasks. 2=Patient will verbalize/demonstrate understanding of assistive devices/modifications for ADL. 3=Patient will improve strength/tolerance for activity to enable patient to perform ADL's. OT Retirement Goals Rail Doweling Machine Operator Goals Time Frame: Mar 13, 2019 Eating (FIM): 6 Grooming(FIM): 6 (seated) Bathing(FIM): 5 (UB only) Bathing Location: L Upper Leg, R Upper Leg, Chest, Abdomen Additional Goals: 1-Demonstrate ADL Tasks, 2-Verbalize Understanding, 3- ImproveStrength/Ralph 1=Demonstrate adherence to instructed precautions during ADL tasks. 2=Patient will verbalize/demonstrate understanding of assistive devices/modifications for ADL. 3=Patient will improve strength/tolerance for activity to enable patient to perform ADL's. OT Education/Plan Problem List/Assessment Assessment: Decreased Activ Tolerance, Decreased UE Strength, Dependent Transfers, Impaired Bed Mobility, Impaired I ADL's, Impaired Self-Care Skills Discharge Recommendations Plan/Recommendations: Continue POC Therapy D/C Recommendations: 24 hr Supervision Treatment Plan/Plan of Care Treatment,Training & Education: Yes Patient would benefit from OT for education, treatment and training to promote independence in ADL's, mobility, safety and/or upper extremity function for ADL's. Plan of Care: ADL Retraining, Functional Mobility, Group Exercise/Act as Ind, UE Funct Exercise/Act Treatment Duration: Mar 13, 2019 Frequency: 5 times per week Estimated Hrs Per Day: .25 hour per day Agreement: Yes Rehab Potential: Guarded Time/GCodes Start Time: 09:15 Stop Time: 09:45 Total Time Billed (hr/min): 30 Billed Treatment Time 1, ADL x 2 MYNOR GUPTA OT Feb 28, 2019 13:20
[2019-02-28] MEDS: ROFLUMILAST 500 MCG TAB (DALIRESP) PO SCH (14:05)
--- NOTE | 2019-02-28 15:05 | NUR ---
Pastoral care visit.
[2019-02-28] MEDS: POLYETHYLENE GLYCOL 17 GM (MIRALAX) PACK PO SCH (21:46)
[2019-03-01 04:18] VITALS: BP 156/87
[2019-03-01] MEDS: inSUlin ASPART (NovoLOG) 1 UNIT/0.01 ML (CHARGE PER UNIT) SC SCH (05:21)
[2019-03-01 05:42] LABS: BASOPHILS % (AUTO) 0 % (0-10); EOSINOPHILS # (AUTO) 0.4 10^3/uL (0.0-0.3); EOSINOPHILS % (AUTO) 7 % (0-10); HEMATOCRIT 32 % (35-52); HEMOGLOBIN 10.2 G/DL (11.5-16.0); LYMPHOCYTES # (AUTO) 1.1 X 10^3 (1.0-4.0); LYMPHOCYTES % (AUTO) 18 % (12-44); MEAN CORPUSCULAR HEMOGLOBIN 29 PG (25-34); MEAN CORPUSCULAR HGB CONC 32 G/DL (32-36); MEAN CORPUSCULAR VOLUME 91 FL (80-99); MEAN PLATELET VOLUME 10.6 FL (7.4-10.4); MONOCYTES # (AUTO) 0.6 X 10^3 (0.0-1.0); MONOCYTES % (AUTO) 10 % (0-12); NEUTROPHILS # (AUTO) 3.8 X 10^3 (1.8-7.8); NEUTROPHILS % (AUTO) 65 % (42-75); PLATELET COUNT 174 10^3/uL (130-400); RED CELL DISTRIBUTION WIDTH 14.6 % (10.0-14.5); WHITE BLOOD COUNT 5.8 10^3/uL (4.3-11.0)
[2019-03-01] MEDS: SUCRALFATE 1 GM (CARAFATE) TAB PO SCH (05:45)
[2019-03-01] MEDS: HYDROcodone/APAP 7.5 MG/325 MG (LORTAB, LORCET PLUS) TABLET PO PRN (05:46)
[2019-03-01] MEDS: LACTOBACILLUS ACIDOPHILUS (PROBIOTIC) CAPSULE PO SCH (05:46)
[2019-03-01 06:01] LABS: CARBON DIOXIDE 23 MMOL/L (21-32); CHLORIDE 105 MMOL/L (98-107); SODIUM 137 MMOL/L (135-145)
[2019-03-01 06:02] LABS: BUN/CREATININE RATIO 11; CALCIUM 8.2 MG/DL (8.5-10.1); CREATININE SERUM 0.53 MG/DL (0.60-1.30); GFR ESTIMATED > 60; GLUCOSE 142 MG/DL (70-105)
--- NOTE | 2019-03-01 07:08 | NUR ---
patient is on RA and doing good; no needs at this time
[2019-03-01 08:00] VITALS: BP 159/94
[2019-03-01] MEDS: FOLIC ACID 1 MG TAB PO SCH (08:44)
[2019-03-01] MEDS: busPIRone 5 MG (BUSPAR) TAB PO SCH (08:44)
[2019-03-01] MEDS: PANTOPRAZOLE 40 MG (PROTONIX) TAB PO SCH (08:44)
[2019-03-01] MEDS: meTOprolol TARTRATE 25 MG (LOPRESSOR) TABLET PO SCH (08:44)
[2019-03-01] MEDS: SILDENAFIL 20 MG (REVATIO) TAB NON-FORMULARY PO SCH (08:44)
[2019-03-01] MEDS: cefTRIAXone FOR IV USE 1,000 MG in WATER (STERILE) FOR INJECTION 10 ML IV SCH (08:44)
--- NOTE | 2019-03-01 10:24 | Discharge Summary ---
Diagnosis/Chief Complaint Date of Admission Feb 26, 2019 at 07:43 Date of Discharge Admission Diagnosis Sepsis due to pyelonephritis Discharge Diagnosis (1) Sepsis due to urinary tract infection Status: Acute (2) Myopathy Status: Chronic (3) Hyperglycemia Status: Acute (4) Hypokalemia Status: Acute (5) GERD (gastroesophageal reflux disease) Status: Chronic (6) Transfusion history (7) Anemia due to acute blood loss Status: Acute (8) PEG (percutaneous endoscopic gastrostomy) status Discharge Summary Discharge Physical Exam Allergies: Uncoded Allergies: UNKNOWN BLADDER MED (Allergy, Unknown, 10/03/18) none (Adverse Reaction, Unknown, 08/20/14) Vitals & I&Os Vital Signs Date Time Temp Pulse Resp B/P (MAP) Pulse Ox O2 Delivery O2 Flow Rate FiO2 03/01/19 08:00 97.6 92 32 159/94 (115) 98 Room Air 02/26/19 16:53 2.00 02/26/19 05:40 96 Hospital Course Labs (last 24 hrs) Laboratory Tests 02/28/19 11:25: Glucometer 184H 02/28/19 16:09: Glucometer 265H 02/28/19 20:56: Glucometer 236H 03/01/19 05:10: White Blood Count 5.8, Red Blood Count 3.57L, Hemoglobin 10.2L, Hematocrit 32L, Mean Corpuscular Volume 91, Mean Corpuscular Hemoglobin 29, Mean Corpuscular Hemoglobin Concent 32, Red Cell Distribution Width 14.6H, Platelet Count 174, Mean Platelet Volume 10.6H, Neutrophils (%) (Auto) 65, Lymphocytes (%) (Auto) 18, Monocytes (%) (Auto) 10, Eosinophils (%) (Auto) 7, Basophils (%) (Auto) 0, Neutrophils # (Auto) 3.8, Lymphocytes # (Auto) 1.1, Monocytes # (Auto) 0.6, Eosinophils # (Auto) 0.4H, Basophils # (Auto) 0.0, Sodium Level 137, Potassium Level 3.0L, Chloride Level 105, Carbon Dioxide Level 23, Anion Gap 9, Blood Urea Nitrogen 6L, Creatinine 0.53L, Estimat Glomerular Filtration Rate > 60, BUN/Creatinine Ratio 11, Glucose Level 142H, Calcium Level 8.2L 03/01/19 05:19: Glucometer 164H Microbiology 02/26/19 Blood Culture - Preliminary, Resulted No growth 02/26/19 Urine Culture - Preliminary, Resulted Klebsiella pneumoniae Patient resulted labs reviewed. Pending Labs Laboratory Tests 03/01/19 05:10: White Blood Count 5.8, Red Blood Count 3.57, Hemoglobin 10.2, Hematocrit 32, Mean Corpuscular Volume 91, Mean Corpuscular Hemoglobin 29, Mean Corpuscular Hemoglobin Concent 32, Red Cell Distribution Width 14.6, Platelet Count 174, Mean Platelet Volume 10.6, Neutrophils (%) (Auto) 65, Lymphocytes (%) (Auto) 18, Monocytes (%) (Auto) 10, Eosinophils (%) (Auto) 7, Basophils (%) (Auto) 0, Neutrophils # (Auto) 3.8, Lymphocytes # (Auto) 1.1, Monocytes # (Auto) 0.6, Eosinophils # (Auto) 0.4, Basophils # (Auto) 0.0, Sodium Level 137, Potassium Level 3.0, Chloride Level 105, Carbon Dioxide Level 23, Anion Gap 9, Blood Urea Nitrogen 6, Creatinine 0.53, Estimat Glomerular Filtration Rate > 60, BUN/Creatinine Ratio 11, Glucose Level 142, Calcium Level 8.2 03/01/19 05:19: Glucometer 164 Imaging: Reviewed Imaging Films, Reviewed Imaging Report Discharge Home Medications: Active Scripts Active Reported Sucralfate 1 Gm Tablet 1 Gm PO Q6H Sodium Bicarbonate 325 Mg Tablet 325 Mg PEG UD PRN Sildenafil (Sildenafil Citrate) 20 Mg Tablet 20 Mg PO TID Daliresp (Roflumilast) 500 Mcg Tablet 500 Mcg PO DAILY Protonix (Pantoprazole Sodium) 40 Mg Tablet.dr 40 Mg PO DAILY Ondansetron Odt (Ondansetron) 4 Mg Tab.rapdis 4 Mg PO Q4H PRN Metoprolol Tartrate 25 Mg Tablet 12.5 Mg PO BID HOLD IF SBP <100 OR PULSE <60 Lortab 7.5 Mg Tablet (Acetaminophen/Hydrocodone Bitart) 1 Ea Tablet 1 Tab PO Q4H PRN Lidocare (Lidocaine) 1 Each Adh..patch 1 Patch TP DAILY 4% PATCH - APPLY TO LEFT SHOULDER Iprat-Albut 0.5-3(2.5) mg/3 ml (Ipratropium/Albuterol Sulfate) 3 Ml Ampul.neb 3 Ml NEB Q6H PRN Imodium A-D (Loperamide HCl) 2 Mg Tablet PO UD PRN TAKE 2 TABLETS AFTER FIRST LOOSE STOOL, THEN 1 NEEDED MAX OF 4 DOSES Buspirone HCl 5 Mg Tablet 5 Mg PO TID Acidophilus-Pectin Capsule (Lactobacillus Acidophilus/Pect) 1 Each Capsule 1 Cap PO BID Vitamin D3 (Cholecalciferol (Vitamin D3)) 1,000 Unit Capsule 2,000 Unit PO DAILY Tylenol Arthritis (Acetaminophen) 650 Mg Tablet.er 650 Mg PO Q6H PRN Multivitamins (Multivitamin) 1 Each Tablet 1 Tab PO DAILY Folic Acid 1 Mg Tablet 1 Mg PO DAILY Instructions to patient/family Please see electronic discharge instructions given to patient. Clinical Quality Measures DVT/VTE Risk/Contraindication: Risk Factor Score Per Nursin RFS Level Per Nursing on Admit: 4+=Very High GLENN SUN MD Mar 01, 2019 10:24
[2019-03-01] MEDS ORDERED: KCL 20 MEQ TAB (K-DUR) PO ONE (10:30)
[2019-03-01] MEDS ORDERED: CEPH-507 PO (10:39)
--- NOTE | 2019-03-01 10:40 | Discharge Inst-Skilled Nursing ---
Discharge Inst-Skilled NF Chief Complaint Yu Anand is an 79yoF who presented from [facility] in [place] with fever and found to have sepsis due to urinary tract infection. She reports dysuria, frequency, and urgency. She has occasional functional incontinence which has been more frequent lately. She reports fevers and chills. She denies dyspnea and cough. She denies abdominal pain, nausea, and, vomiting. She reports diarrhea for which she has been treated with Imodium and has improved. She denies any skin rash. She denies headache, vision changes, chest pain, and palpitations. She had a prolonged hospitalization earlier this year due to a bleeding ulcer which required multiple endoscopies. 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 She had a PEG placed due to malnutrition which is still in place but not currently being used. Consult/Follow Up/Orders Follow Up Appt.: Dr Ruggiero in 1 week Skilled NF Admit to: [facility] Certification (SNF) I certify that SNF services are required to be given on an inpatient basis because of the above named patient's need for chcf care on a continuing basis for the conditions(s) for which he/she was receiving inpatient hospital services prior to his/her transfer to the SNF. Assisted Facility Order: Nursing Services, [employer] Drill Operator-Evaluate & Treat, Physical Therapy-Evaluate & Treat, Speech Language-Evaluate & Treat Oxygen Delivery Method: Room Air Discharge Diet: No Restrictions New & Resume Previous Orders Glenn Lutz Mar 01, 2019 10:39 GLENN LUTZ MD Mar 01, 2019 10:40 am
--- NOTE | 2019-03-01 11:27 | NUR ---
CM/SS. Patient discharged back to established placement with [facility] [employer] skilled status via their transportation scheduled this p.m. Facility understands to bring wheelchair and clothing. Patient indicates she will call her spouse, Zac Mao. Faxed orders to SNF, prepared packet to accompany patient. Unit RN fully updated.
[2019-03-01 12:00] VITALS: BP 133/71
== END 2019-03-01 13:15 | DRG 872 ==
LOC: EDUNIT# 05:31 → ER FS 05:32 → 4TH 07:43
PROVIDERS: ADMIT Internal Medicine; ATTEND Family Medicine
DX: A41.9 Sepsis, unspecified organism (principal); N12 Tubulo-interstitial nephritis, not specified as acute or chronic; J98.11 Atelectasis; D62 Acute posthemorrhagic anemia; J96.10 Chronic respiratory failure, unspecified whether with hypoxia or hypercapnia; E11.65 Type 2 diabetes mellitus with hyperglycemia; G72.9 Myopathy, unspecified; E87.6 Hypokalemia; K21.9 Gastro-esophageal reflux disease without esophagitis; M06.9 Rheumatoid arthritis, unspecified; F03.90 Unspecified dementia, unspecified severity, without behavioral disturbance, psychotic disturbance, mood disturbance, and anxiety; R13.10 Dysphagia, unspecified; Z87.11 Personal history of peptic ulcer disease; Z93.1 Gastrostomy status; Z96.641 Presence of right artificial hip joint
CPT/HCPCS: 36415; 71045; 80048; 80053; 81000; 82962; 83036; 83605; 83735; 84484; 85007; 85025; 85027; 85610; 85730; 87040; 87077; 87088; 87186; 93005; 94664; 94760

== ENCOUNTER → 2019-03-16 | Outpatient (CLI) | payer MEDICARE, OTHER ==
[~2019-03-16] MED LIST changes: +BUSP5TAB59 PO; +CEPH-507 PO; +LACT1CAP76 PO; +LOPE-134 PO; +PANT40TA2 PO
[2019-03-16 11:15] LABS: ALANINE AMINOTRANSFERASE 8 U/L (0-55); ALBUMIN 3.5 GM/DL (3.2-4.5); ALKALINE PHOSPHATASE 92 U/L (40-136); BILIRUBIN,TOTAL 0.4 MG/DL (0.1-1.0); BUN/CREATININE RATIO 11; CALCIUM 9.4 MG/DL (8.5-10.1); CARBON DIOXIDE 31 MMOL/L (21-32); CHLORIDE 97 MMOL/L (98-107); CREATININE SERUM 0.66 MG/DL (0.60-1.30); GFR ESTIMATED > 60; GLUCOSE 222 MG/DL (70-105); POTASSIUM 2.6 MMOL/L (3.6-5.0); SODIUM 143 MMOL/L (135-145); TOTAL PROTEIN 7.9 GM/DL (6.4-8.2)
== END ==
LOC: LAB FS 10:45
PROVIDERS: ATTEND Pediatrics
DX: E87.6 Hypokalemia (principal)
CPT/HCPCS: 36415; 80053

== ENCOUNTER → 2019-03-30 | Outpatient (CLI) | payer MEDICARE, OTHER ==
[2019-03-30 11:33] LABS: BUN/CREATININE RATIO 17; CALCIUM 9.5 MG/DL (8.5-10.1); CARBON DIOXIDE 23 MMOL/L (21-32); CHLORIDE 95 MMOL/L (98-107); CREATININE SERUM 0.66 MG/DL (0.60-1.30); GFR ESTIMATED > 60; GLUCOSE 224 MG/DL (70-105); POTASSIUM 3.8 MMOL/L (3.6-5.0); SODIUM 136 MMOL/L (135-145)
== END ==
LOC: LAB FS 10:46
PROVIDERS: ATTEND Internal Medicine Nephrology
DX: E87.6 Hypokalemia (principal)
CPT/HCPCS: 36415; 80048

== ENCOUNTER → 2019-04-13 | Outpatient (CLI) | payer MEDICARE, OTHER ==
[2019-04-13 10:22] LABS: BUN/CREATININE RATIO 28; CARBON DIOXIDE 29 MMOL/L (21-32); CHLORIDE 99 MMOL/L (98-107); CREATININE SERUM 0.58 MG/DL (0.60-1.30); GFR ESTIMATED > 60; GLUCOSE 215 MG/DL (70-105); POTASSIUM 4.3 MMOL/L (3.6-5.0); SODIUM 138 MMOL/L (135-145)
== END ==
LOC: LAB FS 09:12
PROVIDERS: ATTEND Pediatrics
DX: E87.6 Hypokalemia (principal)
CPT/HCPCS: 36415; 80048

== ENCOUNTER 2019-05-15 18:44 | Inpatient (IN) | payer MEDICARE, OTHER ==
[~2019-05-15] VITALS: Ht 160 cm; Wt 52.1 kg
[~2019-05-15 18:44] MED LIST changes: -DEXT50IV12 IV; -POTA40LI11 PEG; +POTA40LI3 PEG; -TRAM50TA2 PO; +TRM50T PO; +[UNRECOGNIZED DRUG - CODE] IV
--- NOTE | 2019-05-15 19:09 | ED General ---
General Chief Complaint: Altered Mental Status Stated Complaint: ALTERED MENTAL STATUS Source of Information: Patient, EMS, Spouse History of Present Illness Date Seen by Provider: May 15, 2019 Time Seen by Provider: 18:44 Initial Comments 79-year-old female presenting with altered mental status and fever. She has a history of UTI and sepsis most recently in February. She is currently living at home but recently was medical lodge. She does have some dementia. She has some incontinence and wears an adult brief. She has been weaker and more confused than normal today. EMS was activated to evaluate for her change in mental status. According to her she has had similar symptoms in the past when she had a UTI. Allergies and Home Medications Allergies Uncoded Allergies: UNKNOWN BLADDER MED (Allergy, Unknown, 10/03/18) none (Adverse Reaction, Unknown, 08/20/14) Home Medications Acetaminophen 650 Mg Tablet.er, 650 MG PO Q6H PRN for PAIN-MILD, (Reported) Buspirone HCl 5 Mg Tablet, 5 MG PO TID, (Reported) Cephalexin 500 Mg Capsule, 500 MG PO BID Prescribed by: GLENN SUN on 03/01/19 1039 Cholecalciferol (Vitamin D3) 1,000 Unit Capsule, 2,000 UNIT PO DAILY, (Reported) Folic Acid 1 Mg Tablet, 1 MG PO DAILY, (Reported) Hydrocodone Bit/Acetaminophen 1 Ea Tablet, 1 TAB PO Q4H PRN for PAIN-MODERATE, (Reported) Ipratropium/Albuterol Sulfate 3 Ml Ampul.neb, 3 ML NEB Q6H PRN for SHORTNESS OF BREATH, (Reported) Lactobacillus Acidophilus/Pect 1 Each Capsule, 1 CAP PO BID, (Reported) Lidocaine 1 Each Adh..patch, 1 PATCH TP DAILY, (Reported) 4% PATCH - APPLY TO LEFT SHOULDER Loperamide HCl 2 Mg Tablet, PO UD PRN for DIARRHEA, (Reported) TAKE 2 TABLETS AFTER FIRST LOOSE STOOL, THEN 1 NEEDED MAX OF 4 DOSES Metoprolol Tartrate 25 Mg Tablet, 12.5 MG PO BID, (Reported) HOLD IF SBP <100 OR PULSE <60 Multivitamin 1 Each Tablet, 1 TAB PO DAILY, (Reported) Ondansetron 4 Mg Tab.rapdis, 4 MG PO Q4H PRN for NAUSEA/VOMITING-1ST LINE, (Reported) Pantoprazole Sodium 40 Mg Tablet.dr, 40 MG PO DAILY, (Reported) Roflumilast 500 Mcg Tablet, 500 MCG PO DAILY, (Reported) Sildenafil Citrate 20 Mg Tablet, 20 MG PO TID, (Reported) Sodium Bicarbonate 325 Mg Tablet, 325 MG PEG UD PRN for PEG TUBE CLOG, (Reported) Sucralfate 1 Gm Tablet, 1 GM PO Q6H, (Reported) Patient Home Medication List Home Medication List Reviewed: Yes Review of Systems Review of Systems Constitutional: chills, fever, malaise, weakness (generalized) EENTM: no symptoms reported Respiratory: cough (occasional) Cardiovascular: palpitations Gastrointestinal: No abdominal pain Genitourinary: dysuria (when asked if she has pain with urination she says yes), incontinence Musculoskeletal: no symptoms reported Skin: no symptoms reported Psychiatric/Neurological: Weakness (generalized), Other (increased confusion) Hematologic/Lymphatic: No Symptoms Reported Past Prqltld-Rsbehj-Hatssm Hx Past Med/Social Hx: Reviewed Nursing Past Med/Soc Hx Patient Social History 2nd Hand Smoke Exposure: No Recent Foreign Travel: No Contact w/Someone Who Travel: No Recent Hopitalizations: No Immunizations Up To Date Tetanus Booster (TDap): More than 5yrs PED Vaccines UTD: No Date of Pneumonia Vaccine: Aug 20, 2013 Date of Influenza Vaccine: Apr 19, 2014 Seasonal Allergies Seasonal Allergies: No Past Medical History Surgeries: Yes (pyloromyotomy c control bleed GDA/ulcer) Joint Replacement Respiratory: Yes (RESPIRATORY DISTRESS WITH CURRENT TRACH) Pneumonia Currently Using CPAP: No Currently Using BIPAP: No Cardiac: Yes Neurological: Yes Dementia Reproductive Disorders: No Female Reproductive Disorders: Denies Sexually Transmitted Disease: No HIV/AIDS: No Genitourinary: Yes UTI-Chronic Gastrointestinal: Yes Gastroesophageal Reflux, Gastrointestinal Bleed Musculoskeletal: Yes Degenerate Disk Disease, Rheumatoid Arthritis Endocrine: Yes Diabetes, Non-Insulin dep HEENT: Yes Cataract Loss of Vision: Denies Hearing Impairment: Denies Cancer: No Psychosocial: No Integumentary: No Blood Disorders: No Adverse Reaction/Blood Tranf: No Family Medical History Patient reports no known family medical history. No Pertinent Family Hx Physical Exam-Suspected Sepsis Physical Exam Vital Signs Vital Signs - First Documented 05/15/19 05/15/19 18:47 20:35 Temp 36.7 Pulse 127 Resp 20 B/P (MAP) 167/105 (125) Pulse Ox 98 O2 Delivery Room Air O2 Flow Rate 2.00 Capillary Refill : Height, Weight, BMI Height: 5'2.00" Weight: 119lbs. 1.0oz. 54.428474yr; 21.8 BMI Method:Stated General Appearance: No Apparent Distress, WD/WN, Chronically ill HEENT: PERRL/EOMI; No Moist Mucous Membranes (slightly dry mucous membranes) Neck: Supple Respiratory: Chest Non Tender, Lungs Clear, Normal Breath Sounds, No Accessory Muscle Use, No Respiratory Distress Cardiovascular: Normal Peripheral Pulses, Tachycardia Gastrointestinal: No Pulsatile Mass, Non Tender, Soft Extremity: Non Tender, No Calf Tenderness, No Pedal Edema Neurologic/Psychiatric: Alert, frame feeder II-XII Norm as Tested, Disoriented (oriented to self only) Skin: warm/dry; No diaphoresis; pallor Focused Exam Sepsis Stage: Sepsis Possible Source: Genitouriary Lactate Level 05/15/19 18:50: Lactic Acid Level 2.07*H Time of Focused Exam: 19:15 Respiratory: Chest Non Tender, Lungs Clear, Normal Breath Sounds, No Accessory Muscle Use, No Respiratory Distress Cardiovascular: Normal Peripheral Pulses, Tachycardia Capillary Refill: Less Than 3 Seconds Peripheral Pulses: 2+ Carotid (R), 2+ Carotid (L), 2+ Radial Pulses (R), 2+ Radial Pulses (L) Skin: normal color, warm/dry Lactic Acid Level Laboratory Tests Test 05/15/19 18:50 Lactic Acid Level 2.07 MMOL/L (0.50-2.00) *H Within 3hrs of presentation: Admin fluids, Admin ABX, Blood cultures prior to ABX's, Focus exam, Lactate level Procedures/Interventions Date of ETT Placement: Nov 05, 2018 Time of ETT Placement: 1230 Progress/Results/Core Measures Suspected Sepsis Recent Fever Within 48 Hours: Yes Infection Criteria Present: Suspected New Infection New/Unexplained Altered Menta: Yes Within 3hrs of presentation: Admin fluids, Admin ABX, Blood cultures prior to ABX's, Focus exam, Lactate level Sepsis Diagnosis: (1) Sepsis Qualifiers: Qualified Codes: A41.9 - Sepsis, unspecified organism (2) Hyperglycemia (3) Cystitis without hematuria SIRS Temperature: Pulse: Respiratory Rate: Laboratory Tests 05/15/19 18:50: White Blood Count 11.9H Blood Pressure / Mean: 05/15/19 18:50: Lactic Acid Level 2.07*H Laboratory Tests 05/15/19 18:50: Creatinine 0.61, Platelet Count 404H, Total Bilirubin 0.7 Results/Orders Lab Results Laboratory Tests Test 05/15/19 18:50 05/15/19 19:07 Range/Units White Blood Count 11.9 H 4.3-11.0 10^3/uL Red Blood Count 4.62 4.35-5.85 10^6/uL Hemoglobin 13.3 11.5-16.0 G/DL Hematocrit 40 35-52 % Mean Corpuscular Volume 87 80-99 FL Mean Corpuscular Hemoglobin 29 25-34 PG Mean Corpuscular Hemoglobin Concent 33 32-36 G/DL Red Cell Distribution Width 14.4 10.0-14.5 % Platelet Count 404 H 130-400 10^3/uL Mean Platelet Volume 9.0 7.4-10.4 FL Neutrophils (%) (Auto) 86 H 42-75 % Lymphocytes (%) (Auto) 8 L 12-44 % Monocytes (%) (Auto) 5 0-12 % Eosinophils (%) (Auto) 0 0-10 % Basophils (%) (Auto) 0 0-10 % Neutrophils # (Auto) 10.2 H 1.8-7.8 X 10^3 Lymphocytes # (Auto) 1.0 1.0-4.0 X 10^3 Monocytes # (Auto) 0.6 0.0-1.0 X 10^3 Eosinophils # (Auto) 0.1 0.0-0.3 10^3/uL Basophils # (Auto) 0.0 0.0-0.1 10^3/uL Sodium Level 130 L 135-145 MMOL/L Potassium Level 5.2 H 3.6-5.0 MMOL/L Chloride Level 91 L 98-107 MMOL/L Carbon Dioxide Level 27 21-32 MMOL/L Anion Gap 12 5-14 MMOL/L Blood Urea Nitrogen 10 7-18 MG/DL Creatinine 0.61 0.60-1.30 MG/DL Estimat Glomerular Filtration Rate > 60 BUN/Creatinine Ratio 16 Glucose Level 260 H 70-105 MG/DL Lactic Acid Level 2.07 *H 0.50-2.00 MMOL/L Calcium Level 9.9 8.5-10.1 MG/DL Corrected Calcium 9.8 8.5-10.1 MG/DL Total Bilirubin 0.7 0.1-1.0 MG/DL Aspartate Amino Transf (AST/SGOT) 17 5-34 U/L Alanine Aminotransferase (ALT/SGPT) 14 0-55 U/L Alkaline Phosphatase 256 H 40-136 U/L Total Protein 8.7 H 6.4-8.2 GM/DL Albumin 4.1 3.2-4.5 GM/DL Urine Color YELLOW Urine Clarity CLEAR Urine pH 7.5 5-9 Urine Specific Hudson 1.015 L 1.016-1.022 Urine Protein TRACE NEGATIVE Urine Glucose (UA) 1+ H NEGATIVE Urine Ketones NEGATIVE NEGATIVE Urine Nitrite NEGATIVE NEGATIVE Urine Bilirubin NEGATIVE NEGATIVE Urine Urobilinogen 0.2 NORMAL MG/DL Urine Leukocyte Esterase 1+ H NEGATIVE Urine RBC (Auto) 1+ H NEGATIVE Urine RBC 2-5 H /HPF Urine WBC 25-50 H /HPF Urine Crystals NONE /LPF Urine Bacteria FEW H /HPF Urine Casts NONE /LPF Urine Mucus NEGATIVE /LPF Urine Culture Indicated YES My Orders Orders - RICH ESTEVEZ MD Cbc With Automated Diff (05/15/19 18:54) Comprehensive Metabolic Panel (05/15/19 18:54) Blood Culture (05/15/19 18:54) Ua Culture If Indicated (05/15/19 18:54) Chest 1 View Ap/Pa Only (05/15/19 18:54) Ed Iv/Invasive Line Start (05/15/19 18:54) Straight Cath For Spec.-Adult (05/15/19 18:54) Ct Head Wo (05/15/19 18:54) Continuous Ekg Monitoring (05/15/19 18:54) Ekg Tracing (05/15/19 18:54) Lactic Acid Analyzer (05/15/19 18:54) Continuous Ekg Monitoring (05/15/19 19:01) Ns Iv 1000 Ml (Sodium Chloride 0.9%) (05/15/19 19:12) Urine Culture (05/15/19 19:07) Ondansetron Injection (Zofran Injectio (05/15/19 19:29) Ceftriaxone For Iv Use (Rocephin For I (05/15/19 19:29) Ondansetron Injection (Zofran Injectio (05/15/19 19:28) Griffith Cath (05/15/19 19:48) Vital Signs/I&O 05/15/19 05/15/19 18:47 20:35 Temp 36.7 Pulse 127 102 Resp 20 23 B/P (MAP) 167/105 (125) 170/93 Pulse Ox 98 92 O2 Delivery Room Air Nasal Cannula O2 Flow Rate 2.00 Capillary Refill : Progress Note #1: Progress Note obtain labs with blood cultures and a quick cath urine specimen. ECG for her tachycardia and will give IVF bolus for her tachycardia and possible sepsis. Progress Note #2: Progress Note Labs show mild elevation of white blood cell count with left shift. She does have UTI on her urinalysis. There is mild elevation of her lactic acid to 2.07. Her glucose is elevated as well. This is similar to when she was admitted for UTI with sepsis in February. Will treat with Rocephin based off of her most recent cultures. Will discuss with the hospitalist since the patient follows with Dr. Reynolds. Administer 1 L bolus of normal saline and then based off of the sepsis pathway give normal saline at 150 ml/hr ECG Initial ECG Impression Date: May 15, 2019 Initial ECG Impression Time: 19:01 Initial ECG Rate: 117 Initial ECG Rhythm: S.Tach Initial ECG Intervals: Normal Initial ECG Comparisson: Unchanged Comment Sinus tachycardia with a heart rate of 117 bpm. OK interval 173 ms. QT interval 333 ms with a QT corrected interval 465 ms. She has no acute ST elevation. She does have occasional premature atrial complexes. She has apparent left ventricular hypertrophy with secondary repolarization abnormality. This appears similar to prior tracings. Diagnostic Imaging Diagonstic Imaging: Xray Plain Films/CT/US/NM/MRI: chest Comments NAME: PRASANNA BAUER [facility] REC#: [id number] PT STATUS: REG ER : 1940 PHYSICIAN: RICH ESTEVEZ MD ADMIT DATE: 05/15/19/ER FS Signed POSDate of Exam:05/15/19 CHEST 1 VIEW AP/PA ONLY INDICATION: Altered mental status. Frontal chest obtained at 07:08 p.m. and compared to 02/26/2019. There is cardiomegaly. There is central vascular congestion. There are chronic changes in the left ribs. There is no definite consolidation, pneumothorax, or pleural fluid. IMPRESSION: Cardiomegaly and central vascular congestion. No definite consolidation, pneumothorax, or pleural fluid. There are chronic changes in left ribs. Dictated by: Dictated on workstation # [id number] Dict: 05/15/191939 Trans: 05/15/191944 [id number] Interpreted by: JOSE RAFAEL LEIGH MD Electronically signed by: JOSE RAFAEL LEIGH MD 05/15/191944 Diagonstic Imaging: CT Plain Films/CT/US/NM/MRI: head Comments NAME: PRASANNA BAUER [facility] REC#: [id number] PT STATUS: REG ER : 1940 PHYSICIAN: RICH ESTEVEZ MD ADMIT DATE: 05/15/19/ER FS Draft POSDate of Exam:05/15/19 CT HEAD WO PROCEDURE: CT head without contrast. TECHNIQUE: Multiple contiguous axial images were obtained through the brain without the use of intravenous contrast. Auto Exposure Controls were utilized during the CT exam to meet ALARA standards for radiation dose reduction. INDICATION: Altered mental status. Patient is unable to answer questions. FINDINGS: There is cortical atrophy. The ventricles are not dilated. Periventricular white matter changes are present. There is no intracranial hemorrhage. No extra-axial fluid collections. The basal cisterns are clear. Pituitary is not enlarged. CP angles are normal. Mastoid air cells are well aerated and clear. No calvarial fractures. IMPRESSION: Cortical atrophy with white matter changes consistent with chronic small vessel disease. No acute abnormalities. Dictated on workstation # [id number] Dict: 05/15/191942 Trans: 05/15/191944 [id number] Interpreted by: TERRY MEDINA MD Electronically signed by: Departure Communication (Admissions) Time/Spoke to Admitting Phy: 19:[address] León for the Hospitalist service since the patient follows with Dr. Reynolds. he accepted the pt for admit with her having UTI, mild elevation of lactic acid and increased mental status change on top of baseline dementia. She is living at home with her and unable to care for herself there with his assistance while dealing with this current infection and early sepsis. With recent infection she had Klebsiella Pneumonia on culture of UTI sensitive to cephalosporins so will start on Rocephin. Impression Primary Impression: Cystitis without hematuria Additional Impressions: Sepsis Qualified Codes: A41.9 - Sepsis, unspecified organism Altered mental status Qualified Codes: R41.0 - Disorientation, unspecified Hyperglycemia Disposition: ADMITTED INPATIENT Condition: Stable Admissions Decision to Admit Reason: Admit from ER (General) Decision to Admit/Date: May 15, 2019 Time/Decision to Admit Time: 19:31 Departure-Patient Inst. Referrals: ELIER REYNOLDS MD (PCP/Family) Primary Care Physician RICH ESTEVEZ MD May 15, 2019 19:09 POS
[2019-05-15 19:10] LABS: HEMATOCRIT 40 % (35-52); HEMOGLOBIN 13.3 G/DL (11.5-16.0); MEAN CORPUSCULAR HEMOGLOBIN 29 PG (25-34); MEAN CORPUSCULAR HGB CONC 33 G/DL (32-36); MEAN CORPUSCULAR VOLUME 87 FL (80-99); WHITE BLOOD COUNT 11.9 10^3/uL (4.3-11.0)
[2019-05-15 19:11] LABS: BASOPHILS % (AUTO) 0 % (0-10); EOSINOPHILS # (AUTO) 0.1 10^3/uL (0.0-0.3); EOSINOPHILS % (AUTO) 0 % (0-10); LYMPHOCYTES % (AUTO) 8 % (12-44); MONOCYTES # (AUTO) 0.6 X 10^3 (0.0-1.0); MONOCYTES % (AUTO) 5 % (0-12); NEUTROPHILS # (AUTO) 10.2 X 10^3 (1.8-7.8); NEUTROPHILS % (AUTO) 86 % (42-75); PLATELET COUNT 404 10^3/uL (130-400); RED CELL DISTRIBUTION WIDTH 14.4 % (10.0-14.5)
[2019-05-15] MEDS ORDERED: NS IV 1000 ML 1,000 ML IV STA (19:12)
[2019-05-15 19:20] LABS: BACTERIA,URINE FEW /HPF; BILIRUBIN,URINE NEGATIVE (NEGATIVE); CLARITY,URINE CLEAR; COLOR,URINE YELLOW; GLUCOSE, URINE (UA) 1+ (NEGATIVE); KETONES,URINE NEGATIVE (NEGATIVE); LEUKOCYTE ESTERASE ,URINE 1+ (NEGATIVE); NITRITE,URINE NEGATIVE (NEGATIVE); PH,URINE 7.5 (5-9); PROTEIN,URINE TRACE (NEGATIVE); WBC,URINE 25-50 /HPF
[2019-05-15] MEDS ORDERED: ONDANSETRON 4 MG/2 ML (SDV) Z0FRAN ONE (19:28)
[2019-05-15 19:29] LABS: ALANINE AMINOTRANSFERASE 14 U/L (0-55); ALKALINE PHOSPHATASE 256 U/L (40-136); BILIRUBIN,TOTAL 0.7 MG/DL (0.1-1.0); BUN/CREATININE RATIO 16; CALCIUM 9.9 MG/DL (8.5-10.1); CARBON DIOXIDE 27 MMOL/L (21-32); CHLORIDE 91 MMOL/L (98-107); CREATININE SERUM 0.61 MG/DL (0.60-1.30); GFR ESTIMATED > 60; GLUCOSE 260 MG/DL (70-105); POTASSIUM 5.2 MMOL/L (3.6-5.0); SODIUM 130 MMOL/L (135-145)
[2019-05-15] MEDS ORDERED: ONDANSETRON 4 MG/2 ML (SDV) Z0FRAN IVP STA (19:29)
[2019-05-15] MEDS ORDERED: cefTRIAXone FOR IV USE 1,000 MG in WATER (STERILE) FOR INJECTION 10 ML IV STA (19:29)
[2019-05-15 19:30] LABS: ALBUMIN 4.1 GM/DL (3.2-4.5); TOTAL PROTEIN 8.7 GM/DL (6.4-8.2)
--- NOTE | 2019-05-15 19:44 | Diagnostic Imaging Report ---
INDICATION: Altered mental status. Frontal chest obtained at 07:08 p.m. and compared to 02/26/2019. There is cardiomegaly. There is central vascular congestion. There are chronic changes in the left ribs. There is no definite consolidation, pneumothorax, or pleural fluid. IMPRESSION: Cardiomegaly and central vascular congestion. No definite consolidation, pneumothorax, or pleural fluid. There are chronic changes in left ribs. Dictated by: Dictated on workstation # [id number]
--- NOTE | 2019-05-15 19:45 | Diagnostic Imaging Report ---
PROCEDURE: CT head without contrast. TECHNIQUE: Multiple contiguous axial images were obtained through the brain without the use of intravenous contrast. Auto Exposure Controls were utilized during the CT exam to meet ALARA standards for radiation dose reduction. INDICATION: Altered mental status. Patient is unable to answer questions. FINDINGS: There is cortical atrophy. The ventricles are not dilated. Periventricular white matter changes are present. There is no intracranial hemorrhage. No extra-axial fluid collections. The basal cisterns are clear. Pituitary is not enlarged. CP angles are normal. Mastoid air cells are well aerated and clear. No calvarial fractures. IMPRESSION: Cortical atrophy with white matter changes consistent with chronic small vessel disease. No acute abnormalities. Dictated by: Dictated on workstation # [id number]
[2019-05-15 21:25] VITALS: BP 184/79
--- NOTE | 2019-05-15 21:25 | NUR ---
PRASANNA BAUER admitted to room 410-1, with an admitting diagnosis of Cystitis without Hematuria, Sepsis, on 05/15/19 from [facility] via EMS. PRASANNA BAUER introduced to surroundings, call light, bed controls, phone, TV, temperature control, lights, meal times, smoking policy, visitor policy, side rail policy, bathrooms and showers. Patient Rights given to patient in the handbook. PRASANNA BAUER was told that [facility] is not responsible for the loss or damage to any personal effects or valuables that are kept in the patients posession during their hospitalization. The following Patient Care Plans were discussed with the pt: Discharge Planning, pain control, and medication. pt non-verbal at this time and EMs states that this is the way she was presenting all the time they have pt Patient was informed about the Rapid Response Team and its purpose. pt mumbles at interval and then answers clearky at ither, pt alert to self only.
--- NOTE | 2019-05-15 21:40 | NUR ---
pt unable to answer questions due to dementia,
[2019-05-15] MEDS ORDERED: ACETAMINOPHEN 325 MG TABLET PO PRN (21:45)
[2019-05-15] MEDS ORDERED: ONDANSETRON 4 MG/2 ML (SDV) Z0FRAN IV PRN (21:45)
[2019-05-15] MEDS ORDERED: CATHETER FLUSH 10 ML SYR IV PRN (21:45)
[2019-05-15] MEDS: CATHETER FLUSH 10 ML SYR IV SCH (23:24)
[2019-05-15] MEDS: NS IV 1000 ML 1,000 ML IV SCH (23:24)
[2019-05-16] VITALS (9 sets, daily range): BP systolic 150–210; BP diastolic 79–100
--- NOTE | 2019-05-16 01:30 | NUR ---
Dr León notified of increase in body temperature and unable to get pt to take oral medication, Orders received.
[2019-05-16] MEDS ORDERED: ACETAMINOPHEN 650 MG SUPP (TYLENOL) ONE (01:57)
[2019-05-16] MEDS: ACETAMINOPHEN 650 MG SUPP (TYLENOL) PR PRN ×3 (02:11→21:34)
[2019-05-16] MEDS: CATHETER FLUSH 10 ML SYR IV SCH ×3 (06:00→20:57)
[2019-05-16] MEDS: NS IV 1000 ML 1,000 ML IV SCH ×3 (06:24→20:56)
[2019-05-16 06:25] LABS: BASOPHILS % (AUTO) 0 % (0-10); EOSINOPHILS % (AUTO) 0 % (0-10); HEMATOCRIT 38 % (35-52); HEMOGLOBIN 12.1 G/DL (11.5-16.0); LYMPHOCYTES # (AUTO) 1.5 X 10^3 (1.0-4.0); LYMPHOCYTES % (AUTO) 16 % (12-44); MEAN CORPUSCULAR HEMOGLOBIN 28 PG (25-34); MEAN CORPUSCULAR HGB CONC 32 G/DL (32-36); MEAN CORPUSCULAR VOLUME 87 FL (80-99); MEAN PLATELET VOLUME 9.3 FL (7.4-10.4); MONOCYTES # (AUTO) 0.8 X 10^3 (0.0-1.0); MONOCYTES % (AUTO) 9 % (0-12); NEUTROPHILS # (AUTO) 6.7 X 10^3 (1.8-7.8); NEUTROPHILS % (AUTO) 74 % (42-75); PLATELET COUNT 334 10^3/uL (130-400); RED CELL DISTRIBUTION WIDTH 14.9 % (10.0-14.5)
[2019-05-16 06:54] LABS: ALANINE AMINOTRANSFERASE 12 U/L (0-55); ALBUMIN 3.4 GM/DL (3.2-4.5); ALKALINE PHOSPHATASE 203 U/L (40-136); BILIRUBIN,TOTAL 0.8 MG/DL (0.1-1.0); BUN/CREATININE RATIO 9; CALCIUM 8.9 MG/DL (8.5-10.1); CARBON DIOXIDE 23 MMOL/L (21-32); CHLORIDE 97 MMOL/L (98-107); CREATININE SERUM 0.76 MG/DL (0.60-1.30); GFR ESTIMATED > 60; GLUCOSE 221 MG/DL (70-105); POTASSIUM 4.7 MMOL/L (3.6-5.0); SODIUM 131 MMOL/L (135-145); TOTAL PROTEIN 7.3 GM/DL (6.4-8.2)
--- NOTE | 2019-05-16 09:35 | NUR ---
Code stroke activated. Nursing protocol followed, patient to MRI per physician orders.
[2019-05-16] MEDS ORDERED: PANT40TA3 PO (09:41)
[2019-05-16] MEDS ORDERED: TRM50T PO (09:41)
[2019-05-16] MEDS ORDERED: POTA20TA15 PO (09:41)
--- NOTE | 2019-05-16 09:42 | NUR ---
CALLED AND SPOKE WITH THE PATIENTS . HE LISTED TO ME THE MEDICATIONS HE HAS BEEN GIVING HER FOR THE PAST TWO WEEKS AT HOME SINCE SHE CAME HOME FROM [facility].
[2019-05-16] MEDS ORDERED: GADOBUTROL 7.5 MMOL/7.5 ML (GADAVIST) VIAL IV ONE (10:30)
--- NOTE | 2019-05-16 11:03 | Diagnostic Imaging Report ---
PROCEDURE: MR angiography of the brain without the use of contrast. TECHNIQUE: 3D [id number] non contrast enhanced MR angiography of the head was performed. A source data was reformatted into rotating MIP projections. INDICATION: Stroke. COMPARISON: CT head without contrast 05/15/2019. FINDINGS: Bilateral origin posterior cerebral arteries. This results in a diminutive basilar artery. The bilateral internal carotid, anterior cerebral, middle cerebral and posterior cerebral arteries are widely patent. Patent anterior communicating artery. 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 No other findings suspicious for an aneurysm are identified. IMPRESSION: 1. No high-grade intracranial arterial narrowing. 2. Bilateral origin posterior cerebral arteries resulting in a diminutive basilar. 3. 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 This could be further evaluated with CTA if clinically warranted. Dictated by: Dictated on workstation # [id number]
--- NOTE | 2019-05-16 11:05 | Diagnostic Imaging Report ---
PROCEDURE: MR imaging of the brain with and without contrast. TECHNIQUE: Multiplanar, multisequence MR imaging of the brain was performed with and without contrast. INDICATION: Stroke. COMPARISON: CT head without contrast 05/15/2019. FINDINGS: There are patchy regions of restricted water diffusion in the posterior left temporal occipital region and left anterior frontal lobe bordering the anterior and middle cerebral artery distributions. No abnormal intracranial enhancement or evidence of intracranial hemorrhage. Moderate generalized cerebral and cerebellar parenchymal volume loss. Advanced leukoaraiosis. Normal morphology including the major midline structures, sella, posterior fossa and cerebellar pontine angle. Postoperative changes in the globes. Normal intracranial flow voids. No hydrocephalus or extra-axial fluid collections. The paranasal sinuses are clear. Large bilateral mastoid effusions. Normal bone marrow signal. IMPRESSION: 1. Acute to subacute infarcts bordering the left anterior cerebral and middle cerebral artery distributions and left middle cerebral and posterior cerebral artery distributions suspicious for a watershed infarction. 2. Age-appropriate generalized parenchymal volume loss. Advanced leukoaraiosis. 3. Large bilateral mastoid effusions. Dictated by: Dictated on workstation # [id number]
--- NOTE | 2019-05-16 13:10 | NUR ---
PALLIATIVE CARE RN accompanied Dr. Prabhakar when he met with patient's Zac to discuss the CVA findings. I stayed after doctor was finished and explained the reason for my involvement in her care. We will do PT/OT/ST evaluations to determine her ability. She may continue to decline over the next few days but that is uncertain. Palliative Care RN will continue to follow and felp where needed.
[2019-05-16] MEDS ORDERED: ASPIRIN 325 MG (5 GR) TABLET PO ONE (13:15)
[2019-05-16] MEDS ORDERED: hydrALAZINE (APESOLINE) 20 MG/ML VIAL IV PRN (13:15)
--- NOTE | 2019-05-16 13:29 | History & Physical-Hospitalist ---
History of Present Illness HPI/Chief Complaint Yu Mao is an 79yoF with PMH HTN, GERD, who presented with weakness and altered mental status. Her reports that she had been feeling weak at home and had a fever yesterday. She was getting progressively more weak and he called an ambulance to bring her in to the ER. She had a prolonged hospitalization earlier this year due to a bleeding ulcer which was complicated by hypoxic respiratory failure requiring tracheostomy and PEG for tube feeding, both of which have since been removed. She was recently admitted in February with sepsis due to UTI and discharged to [facility], but had been at home for the past two weeks. Her says she had been doing well and making progress every day until yesterday. He says that her speech was garbled at home but she was still using her right hand when he called the ambulance. This morning she is not able to move her right arm or leg. He thought her symptoms were similar to when she had a urinary tract infection. Source: patient, family Exam Limitations: clinical condition Date Seen 05/16/19 Time Seen by a Provider: 09:30 Attending Physician Ady León MD PCP Jw Ruggiero MD Referring Physician Date of Admission May 15, 2019 at 19:31 Home Medications & Allergies Home Medications Reviewed patient Home Medication Reconciliation performed by pharmacy medication reconciliations breeder hen service technician and/or nursing. Patients Allergies have been reviewed. Allergies Allergies Uncoded Allergies UNKNOWN BLADDER MED ( Allergy, Unknown, 10/03/18) none ( Adverse Reaction, Unknown, 08/20/14) Past Abphqcc-Pnsalm-Bxgcuh Hx Past Med/Social Hx: Reviewed Nursing Past Med/Soc Hx Patient Social History Alcohol Use: Denies Use Recreational Drug Use: No Smoking Status: Never a Smoker 2nd Hand Smoke Exposure: No Recent Foreign Travel: No Contact w/other who traveled: No Recent Hopitalizations: No Recent Infectious Disease Expo: No Immunizations Up To Date Tetanus Booster (TDap): More than 5yrs Pediatric: No Date of Pneumonia Vaccine: Aug 20, 2013 Date of Influenza Vaccine: Apr 19, 2014 Seasonal Allergies Seasonal Allergies: No Past Medical History Surgeries: Joint Replacement Currently Using CPAP: No Currently Using BIPAP: No Neurological: Dementia Reproductive: No Sexually Transmitted Disease: No HIV/AIDS: No Female Reproductive Disorders: Denies Genitourinary: UTI-Chronic Gastrointestinal: Gastroesophageal Reflux, Gastrointestinal Bleed Musculoskeletal: Degenerate Disk Disease, Rheumatoid Arthritis Endocrine: Diabetes, Non-Insulin dep HEENT: Cataract Loss of Vision: Denies Hearing Impairment: Denies History of Blood Disorders: No Adverse Reaction to Blood Ware: No Family History Patient reports no known family medical history. No Pertinent Family Hx Review of Systems Constitutional: fever, weakness EENTM: no symptoms reported Respiratory: phlegm Cardiovascular: no symptoms reported Gastrointestinal: no symptoms reported Genitourinary: no symptoms reported Musculoskeletal: muscle weakness Skin: no symptoms reported Psychiatric/Neurological: Weakness, Other (dysphasia) Physical Exam Physical Exam Vital Signs Vital Signs - First Documented 05/15/19 05/15/19 18:47 20:30 Temp 36.7 Pulse 127 Resp 20 B/P (MAP) 167/105 (125) Pulse Ox 98 O2 Delivery Room Air O2 Flow Rate 2.00 Capillary Refill : Less Than 3 Seconds Height, Weight, BMI Height: 5'2.00" Weight: 119lbs. 1.0oz. 54.972060eo; 20.42 BMI Method:Stated General Appearance: No Apparent Distress, Chronically ill HEENT: Other (eyes deviated to the left, right pupil 3mm and left pupil 2 mm, both pupils reactive to light) Neck: Normal Inspection, Supple Respiratory: No Accessory Muscle Use, No Respiratory Distress, Rhonci Cardiovascular: Regular Rate, Rhythm, No Edema, No Murmur Gastrointestinal: Normal Bowel Sounds, Non Tender, Soft Extremity: Normal Inspection, Non Tender, No Pedal Edema Neurologic/Psychiatric: Facial Droop (right), Motor Weakness (right sided hemiparesis, left side strength 4/5), Other (lethargic) Skin: Normal Color, Warm/Dry Lymphatic: No Adenopathy Results Results/Procedures Labs Laboratory Tests 05/15/19 18:50 05/16/19 05:41 Patient resulted labs reviewed. Imaging: Reviewed Imaging Films, Reviewed Imaging Report, Discussed Imaging with Radiologist Imaging CT Head 05/15: IMPRESSION: Cortical atrophy with white matter changes consistent with chronic small vessel disease. No acute abnormalities. MRI Brain 05/16: IMPRESSION: 1. Acute to subacute infarcts bordering the left anterior cerebral and middle cerebral artery distributions and left middle cerebral and posterior cerebral artery distributions suspicious for a watershed infarction. 2. Age-appropriate generalized parenchymal volume loss. Advanced leukoaraiosis. 3. Large bilateral mastoid effusions. Assessment/Plan Admission Diagnosis Altered mental status Admission Status: Inpatient Order (span 2 midnights) Reason for Inpatient Admission: Stroke requiring further evaluation and therapy Assessment and Plan Acute ischemic stroke -CT Head without acute abnormality on admission -MRI Brain 05/16 showed acute watershed infarcts -Discussed imaging with radiology, Dr. Gonzalez -Begin ASA 325 mg daily -Begin Lipitor 40 mg daily -Hydralazine ordered as needed for BP -EKG with sinus rhythm on arrival, currently on telemetry -Carotid ultrasound ordered -PT/OT/ST -Palliative care consulted Severe sepsis due to UTI -UA consistent with UTI -Urine culture pending -Continue Rocephin Lactic acidosis -Resolved this morning -Continue maintenance fluids Hyponatremia -Mild, continue to monitor Hyperkalemia, resolved Hypertension -Continue metoprolol -Hydralazine as needed GERD -Continue PPI DVT Prophylaxis: Lovenox Diagnosis/Problems Diagnosis/Problems (1) Acute ischemic stroke Status: Acute (2) Severe sepsis Status: Acute (3) UTI (urinary tract infection) Status: Acute (4) Lactic acidosis Status: Resolved Resolution Date/Time: 05/16/19 @ 13:48 (5) Hyponatremia Status: Acute (6) GERD (gastroesophageal reflux disease) Status: Chronic (7) Hyperkalemia Status: Resolved Resolution Date/Time: 05/16/19 @ 13:48 Clinical Quality Measures DVT/VTE Risk/Contraindication: Risk Factor Score Per Nursin RFS Level Per Nursing on Admit: 4+=Very High ELISABETH NAQVI MD May 16, 2019 13:29 POS
[2019-05-16] MEDS ORDERED: ENOXAPARIN 40 MG/0.4 ML (LOVENOX) SYR SC SCH (13:30)
[2019-05-16 13:43] LABS: CHOLESTEROL 151 MG/DL (< 200); HDL CHOLESTEROL 47 MG/DL (40-60); TRIGLYCERIDES 66 MG/DL (<150); VLDL CHOLESTEROL 13 MG/DL (5-40)
--- NOTE | 2019-05-16 15:22 | Diagnostic Imaging Report ---
PROCEDURE: US carotid duplex, bilateral. TECHNIQUE: Multiple real-time grayscale images were obtained over the carotid arteries in various projections, bilaterally. Additional spectral analysis and color Doppler duplex images were also obtained. INDICATION: Stroke. FINDINGS: No significant plaquing is seen in either carotid system. Velocities appear to be fairly normal bilaterally. No high-grade stenosis or occlusion. Both vertebral arteries show antegrade flow. IMPRESSION: No evidence of a hemodynamically significant stenosis. Parameters based on the consensus panel Tang-Scale and Doppler ultrasound criteria published May 2003, Radiology, Volume 229. DOPPLER (peak systolic velocity M/S Right Left CCA .50 .67 ICA Proximal .55 .67 ICA Mid .79 .73 ICA Distal 1.26 .73 RATIO 2.48 1.09 ECA .55 .63 VERT .60 .82 Dictated by: Dictated on workstation # [id number]
--- NOTE | 2019-05-16 15:26 | Occupational Therapy Eval ---
OT Evaluation-General/PLF Medical Diagnosis Admission Date May 15, 2019 at 19:31 Medical Diagnosis: cystitis without hematuria Onset Date: May 15, 2019 Therapy Diagnosis Therapy Diagnosis: weakness, impaired self care skills Height/Weight Height (Feet): 5 Height (Inches): 2.00 Weight (Pounds): 119 Weight (Ounces): 1.0 Precautions Precautions/Isolations: Fall Prevention, Standard Precautions Safety Interventions: None Referral Physician: Vanna Medical History Pertinent Medical History: Atrial Fib, DM, Dementia, GERD, HTN, Rheumatoid Arthritis Additional Medical History bleeding ulcer complicated by hypoxic respiratory failure requiring trach and PEG Current History Pt presented with weakness and AMS. Reviewed History: Yes ADL-Prior Level of Function SCALE: Activities may be completed with or without assistive devices. 4-Cxhqvceian-fbbzsjy completes the activity by him/herself with no assistance from a helper. 5-Set-up or Clean-up Assistance-helper sets up or cleans up; patient completes activity. [place] assists only prior to or following the activity. 4-Supervision or Touching Assistance-helper provides verbal cues and/or touching/steadying and/or contact guard assistance as patient completes ac tivity. Assistance may be provided throughout the activity or intermittently. 3-Partial/Moderate Assistance-helper does LESS THAN HALF the effort. [place] lifts, holds or supports trunk or limbs, but provides less than half the effort. 2-Substantial/Maximal Assistance-helper does MORE THAN HALF the effort. [place] lifts or holds trunk or limbs and provides more than half the effort. 2-Qoywewbem-gnmylv does ALL the effort. Patient does none of the effort to complete the activity. Or, the assistance of 2 or more helpers is required for the patient to complete the activity. If activity was not attempted, code reason: 7-Patient Refused. 9-Not Applicable-not attempted and the patient did not perform the activity before the current illness, exacerbation or injury. 10-Not Attempted due to Environmental Limitations-(lack of equipment, weather restraints, etc.). 88-Not Attempted due to Medical Conditions or Safety Concerns. ADL PLOF Comments Per chart, pt had been at home with spouse for past two weeks. Prior to that, pt was at a NH. Pt nonverbal, unable to provide any information regarding PLOF. No family present. Self Care: Unknown Functional Cognition: Unknown OT Current Status Subjective Pt in bed, nonverbal. Opens eyes occasionally, but does not respond to questions or commands Mental Status/Objective Patient Orientation: Unable to Assess Attachments: Griffith Catheter Current Upper Extremity ROM Pt does not demonstrate any active movement of right UE. PROM grossly WFL Pt does not follow commands for ROM testing of left UE. Upper Extremity Coordination impaired Upper Extremity Sensation unable to assess ADL-Treatment ADL-Current Pt dependent (assist x2 for supine to sit). Pt unable to maintain sitting balance at EOB. Dependent for sit to supine, bed mobility, and to reposition in bed. Pt does not attend to right side during session. Pt in bed with needs met after session. Co-treat with PT secondary to level of complexity and need for skilled therapists. OT Short Term Goals Short Term Goals 1=Demonstrate adherence to instructed precautions during ADL tasks. 2=Patient will verbalize/demonstrate understanding of assistive devices/modifications for ADL. 3=Patient will improve strength/tolerance for activity to enable patient to perform ADL's. OT Cuff Runner Goals Halfway Goals Time Frame: May 30, 2019 Oral Hygiene (QC): 3 Upper Body Dressing (QC): 3 Toilet/Commode Transfer (QC): 3 1=Demonstrate adherence to instructed precautions during ADL tasks. 2=Patient will verbalize/demonstrate understanding of assistive devices/modifications for ADL. 3=Patient will improve strength/tolerance for activity to enable patient to perform ADL's. OT Education/Plan Problem List/Assessment Assessment: Decreased Activ Tolerance, Decreased Safety Aware, Decreased UE Strength, Dependent Transfers, Impaired Bed Mobility, Impaired Coordination, Impaired Funct Balance, Impaired I ADL's, Impaired Self-Care Skills, Visual- Perceptual Deficit Discharge Recommendations Plan/Recommendations: Continue POC Treatment Plan/Plan of Care Treatment,Training & Education: Yes Patient would benefit from OT for education, treatment and training to promote independence in ADL's, mobility, safety and/or upper extremity function for ADL's. Plan of Care: ADL Retraining, Functional Mobility, UE Funct Exercise/Act, UE Neuromus Re-Ed/Coord, Visual/Perceptual Retrain Treatment Duration: May 30, 2019 Frequency: 5 times per week Estimated Hrs Per Day: .25 hour per day Rehab Potential: Guarded Time/GCodes Start Time: 14:59 Stop Time: 15:12 Total Time Billed (hr/min): 13 Billed Treatment Time 1 visit, CARLOZ(13minutes) SANGEETHA PAUL OT May 16, 2019 15:26 POS
--- NOTE | 2019-05-16 15:31 | Physical Therapy Evaluation ---
PT Evaluation-General Medical Diagnosis Admission Date May 15, 2019 at 19:31 Medical Diagnosis: sepsis, cystitis without hematuria Onset Date: May 15, 2019 Therapy Diagnosis Therapy Diagnosis: generalized weakness/debility Height/Weight Height (Feet): 5 Height (Inches): 2.00 Weight (Pounds): 119 Weight (Ounces): 1.0 Precautions Precautions/Isolations: Fall Prevention, Standard Precautions Weight Bear Status Right Lower Extremity: Right Weight Bearing/Tolerated Left Lower Extremity: Left Weight Bearing/Tolerated Referral Physician: Vanna Reason for Referral: Evaluation/Treatment Medical History Pertinent Medical History: Atrial Fib, DM, Dementia, GERD, Rheumatoid Arthritis Current History EMS from home after noticed weakness, altered mental state, and "word jumble." Stated symptoms were the same as UTI which patient had previously been hospitalized for. Reviewed History: Yes Social History Home: Single Level Current Living Status: Spouse Prior Prior Level of Function SCALE: Activities may be completed with or without assistive devices. 8-Iepyhkrqps-uzljsni completes the activity by him/herself with no assistance from a helper. 5-Set-up or Clean-up Assistance-helper sets up or cleans up; patient completes activity. [place] assists only prior to or following the activity. 4-Supervision or Touching Assistance-helper provides verbal cues and/or touching/steadying and/or contact guard assistance as patient completes activity. Assistance may be provided throughout the activity or intermittently. 3-Partial/Moderate Assistance-helper does LESS THAN HALF the effort. [place] lifts, holds or supports trunk or limbs, but provides less than half the effort. 2-Substantial/Maximal Assistance-helper does MORE THAN HALF the effort. [place] lifts or holds trunk or limbs and provides more than half the effort. 5-Vftunjmsj-tfbsfi does ALL the effort. Patient does none of the effort to complete the activity. Or, the assistance of 2 or more helpers is required for the patient to complete the activity. If activity was not attempted, code reason: 7-Patient Refused. 9-Not Applicable-not attempted and the patient did not perform the activity before the current illness, exacerbation or injury. 10-Not Attempted due to Environmental Limitations-(lack of equipment, weather restraints, etc.). 88-Not Attempted due to Medical Conditions or Safety Concerns. Prior to hospitalization, patient has been at home with spouse for 2 weeks and at [facility] prior to that, per chart information. No family present and patient non-verbal. Unable to assess PLOF. PT Evaluation-Current Subjective Patient is in bed and only responds with occasionally opening eyes. Patient demonstrated R side neglect. Patient does not respond to questions or movement. Pain Numeric Pain Scale: 0-No Pain Location: No Pain Reported Comment: Unable to assess Objective Patient Orientation: Unable to Assess, Non-Verbal/Aphasic Problem Solving: Poor Attachments: Griffith Catheter ROM/Strength ROM Lower Extremities PROM WFL. Unable to assess AROM. Strength Lower Extremities Unable to assess strength. Integumentary/Posture Integumentary See nursing notes Bowel Incontinence: Yes Bladder Incontinence: Griffith Cath Posture Unable to maintain seated posture Neuromuscular (Tone, Coordination, Reflexes) Increased tone with movement of R extremities. Sensory Vision: Functional Hearing: Functional Transfers Roll Left to Right (QC): 1 Sit to Lying (QC): 1 Lying to Sitting/Side of Bed(Q: 1 Gait Does the Patient Walk?: No and Walking Goal IS indicated Balance Sitting Static: Poor Sitting Dynamic: Poor Assessment/Needs Patient responds to therapy only with opening eyes occasionally and is non- verbal. Patient does not look to person standing on R side. Patient required assist of 2 for bed mobility and sit to EOB. Patient unable to remain seated on EOB without support and does not correct posture when tested. Rolled patient to R side for re-positioning and placed pillows under R arm and LEs. Rehab Potential: Guarded PT Catering Coordinator Goals Detention Goals PT Detention Goals Time Frame: May 26, 2019 Sit to Lying (QC): 3 Lying-Sitting on Side/Bed(QC): 3 Sit to Stand (QC): 3 Roll Left to Right (QC): 3 Chair/Lld-vx-Xizla Xfer(QC): 3 Car Transfer (QC): 3 PT Plan Problem List Problem List: Activity Tolerance, Functional Strength, Safety, Balance, Gait, Transfer, Bed Mobility Treatment/Plan Treatment Plan: Continue Plan of Care Treatment Plan: Bed Mobility, Education, Functional Activity Ralph, Functional Strength, Gait, Safety, Therapeutic Exercise, Transfers Treatment Duration: May 26, 2019 Frequency: 6 times per week Estimated Hrs Per Day: .25 hour per day Patient and/or Family Agrees t: Yes Discharge Recommendations Therapy Discharge Recommendati: Other, See Comments (retirement facility secondary to severity of symptoms) Time/GCodes Time In: 1459 Time Out: 1510 Total Billed Treatment Time: 11 Total Billed Treatment 1 visit EVModC 11min MOISE SIMEON PT May 16, 2019 15:31 POS
[2019-05-16] MEDS ORDERED: cefTRIAXone 1,000 MG/SWFI 10 ML IV PUSH IV SCH ×2 (19:30)
[2019-05-16] MEDS ORDERED: LABETALOL HCL 20 MG/4 ML VIAL IV PRN (20:45)
[2019-05-16] MEDS ORDERED: LABETALOL HCL 20 MG/4 ML VIAL ONE (20:52)
[2019-05-16] MEDS: meTOprolol TARTRATE 25 MG (LOPRESSOR) TABLET PO SCH (20:57)
--- NOTE | 2019-05-16 21:00 | NUR ---
2029-CAME TO PTS ROOM TO DISCOVER PT WAS IN RESPIRATORY DISTRESS WITH INTERCOSTAL AND ABDOMINAL RETRACTIONS. PCT WAS TAKING PTS VITAL SIGNS :TEMP-38.4, HR-128, RESP-38, BP-210/100 MANUAL, O2-93%ON 2L NC. 2044-SPOKE WITH DR. NAQVI AND INFORMED HIM OF ABOVE FINDINGS. TELEPHONE ORDERS RECEIVED TO INCREASE FLUIDS TO 125ML/HR, MAKE PT NPO, STAT CHEST XRAY, START UNASYN 1.5GM Q8HRS, LABETALOL 10MG Q1HR IV SBP>200, SWITCH HYDRALAZINE PARAMETERS TO SBP>180, PLACE PT ON MAT PROTOCOL AND OKAY TO PLACE PT ON VAPOTHERM. WILL CARRY OUT ORDERS AND CONTINUE TO MONITOR PT.
[2019-05-16] MEDS: AMPICILLIN/SULBACTAM INJECTION 1.5 GM in NS (IVPB) 100 ML IV SCH (21:24)
--- NOTE | 2019-05-16 21:48 | Diagnostic Imaging Report ---
INDICATION: Respiratory distress. Comparison with 05/15/2019. FINDINGS: There has been slight decrease in cardiac size. There has been decrease in pulmonary venous congestion with decreasing interstitial infiltrate. The costophrenic angles are sharp with no evidence of pleural effusion. IMPRESSION: 1. There has been some improvement. Continued cardiomegaly with decreasing pulmonary venous congestive changes. Dictated by: Dictated on workstation # [id number]
[2019-05-16] MEDS: RT-ALBUTEROL SULF 2.5 MG/3 ML PRE-MIX VIAL INH SCH (21:56)
[2019-05-17] VITALS: BP 188/79
[2019-05-17] MEDS: RT-ALBUTEROL SULF 2.5 MG/3 ML PRE-MIX VIAL INH SCH ×2 (01:28→06:34)
[2019-05-17 04:58] VITALS: BP 149/76
[2019-05-17] MEDS: AMPICILLIN/SULBACTAM INJECTION 1.5 GM in NS (IVPB) 100 ML IV SCH (05:38)
[2019-05-17] MEDS: NS IV 1000 ML 1,000 ML IV SCH (05:39)
[2019-05-17] MEDS: CATHETER FLUSH 10 ML SYR IV SCH (05:40)
[2019-05-17 05:52] LABS: BASOPHILS % (AUTO) 0 % (0-10); EOSINOPHILS % (AUTO) 0 % (0-10); HEMATOCRIT 36 % (35-52); HEMOGLOBIN 11.4 G/DL (11.5-16.0); LYMPHOCYTES # (AUTO) 1.1 X 10^3 (1.0-4.0); LYMPHOCYTES % (AUTO) 9 % (12-44); MEAN CORPUSCULAR HEMOGLOBIN 28 PG (25-34); MEAN CORPUSCULAR HGB CONC 32 G/DL (32-36); MEAN CORPUSCULAR VOLUME 88 FL (80-99); MEAN PLATELET VOLUME 9.3 FL (7.4-10.4); MONOCYTES # (AUTO) 1.2 X 10^3 (0.0-1.0); MONOCYTES % (AUTO) 11 % (0-12); NEUTROPHILS # (AUTO) 8.9 X 10^3 (1.8-7.8); NEUTROPHILS % (AUTO) 80 % (42-75); PLATELET COUNT 240 10^3/uL (130-400); RED CELL DISTRIBUTION WIDTH 14.6 % (10.0-14.5); WHITE BLOOD COUNT 11.2 10^3/uL (4.3-11.0)
[2019-05-17 06:12] LABS: ALANINE AMINOTRANSFERASE 11 U/L (0-55); ALBUMIN 3.1 GM/DL (3.2-4.5); ALKALINE PHOSPHATASE 194 U/L (40-136); BILIRUBIN,TOTAL 0.7 MG/DL (0.1-1.0); BUN/CREATININE RATIO 11; CALCIUM 8.3 MG/DL (8.5-10.1); CARBON DIOXIDE 19 MMOL/L (21-32); CHLORIDE 100 MMOL/L (98-107); GFR ESTIMATED > 60; GLUCOSE 276 MG/DL (70-105); POTASSIUM 4.1 MMOL/L (3.6-5.0); SODIUM 130 MMOL/L (135-145); TOTAL PROTEIN 6.6 GM/DL (6.4-8.2)
[2019-05-17] MEDS ORDERED: PIPERACILLIN/TAZO 4.5 GM/NS 100 ML IV NR ×2 (07:30)
[2019-05-17 08:00] VITALS: BP 194/91
[2019-05-17] MEDS: meTOprolol TARTRATE 25 MG (LOPRESSOR) TABLET PO SCH (08:29)
[2019-05-17] MEDS ORDERED: ASPIRIN 325 MG (5 GR) TABLET PO SCH (09:00)
[2019-05-17] MEDS ORDERED: PANTOPRAZOLE 40 MG (PROTONIX) TAB PO SCH (09:00)
--- NOTE | 2019-05-17 10:21 | NUR ---
1013 THIS RT ENTERED ROOM, PT FOUND WITH HFNC HANGING OFF FACE. SPO2 57% ON ROOM AIR HR 123. NC PLACED BACK IN PT NOSE SPO2 58%. 1015 SPO2 REMAINS IN 50'S DR NAQVI NOTIFIED OF PT SPO2, DOES NOT WANT PT ON BIPAP AT THIS TIME. RT BACK TO ROOM SPO2 IN 40'S HR 50'S BREATHING AGONAL. RN NOTIFIED TO TRY TO NOTIFY FAMILY. 1019 PRICSILLA BOATENG NOTIFIED AND CAME TO ROOM TO ASSESS PT. BREATHING AGONAL HR NOW 50'S. PRISCILLA BOATENG UNABLE TO REACH FAMILY AT THIS TIME 1023: TOD CONFIRMED BY PRISCILLA BOATENG AND THIS RT AT THIS TIME. 1025: DR NAQVI TO BEDSIDE.
--- NOTE | 2019-05-17 12:20 | NUR ---
here spoke with palative nurse cally palacios, alleene supposed to call me back, body to be released to [facility] [place]
[2019-05-17] MEDS ORDERED: PIPERACILLIN/TAZOBACTAM (BULK) 4.5 GM in NS (IVPB) 100 ML IV SCH (14:00)
--- NOTE | 2019-05-17 14:01 | Discharge Summary ---
Discharge Summary Hospital Course Problems/Dx: (1) Acute ischemic stroke Status: Acute (2) Severe sepsis Status: Acute (3) UTI (urinary tract infection) Status: Acute (4) Lactic acidosis Status: Resolved (5) Hyponatremia Status: Acute (6) GERD (gastroesophageal reflux disease) Status: Chronic (7) Hyperkalemia Status: Resolved Hospital Course Date of Admission: May 15, 2019 at 19:31 Admission Diagnosis : Altered mental status Family Physician/Provider: Jw Ruggiero MD Date of Discharge: 05/17/19 Discharge Diagnosis: Acute ischemic stroke Hospital Course: Yu Mao was an 79yoF who presented with altered mental status and was admitted with sepsis due to UTI. Her initial CT scan showed no abnormalities. The following morning her symptoms were very concerning for stroke, so MRI was performed which revealed acute ischemic stroke. She had severe right-sided hemiparesis. She was also dysphasic and had dysphagia. Palliative care was consulted. Discussion with her led to a transition to DNR status. There was also discussion that if her status deteriorated that we would likely transition to comfort measures only. There was likely ongoing aspiration since her stroke which led to respiratory distress and hypoxia which led to cardiac arrest. Time of was 1023. Labs and Pending Lab Test: Laboratory Tests 05/17/19 05:30: White Blood Count 11.2H, Red Blood Count 4.09L, Hemoglobin 11.4L, Hematocrit 36, Mean Corpuscular Volume 88, Mean Corpuscular Hemoglobin 28, Mean Corpuscular Hemoglobin Concent 32, Red Cell Distribution Width 14.6H, Platelet Count 240, Mean Platelet Volume 9.3, Neutrophils (%) (Auto) 80H, Lymphocytes (%) (Auto) 9L, Monocytes (%) (Auto) 11, Eosinophils (%) (Auto) 0, Basophils (%) (Auto) 0, Neutrophils # (Auto) 8.9H, Lymphocytes # (Auto) 1.1, Monocytes # (Auto) 1.2H, Eosinophils # (Auto) 0.0, Basophils # (Auto) 0.0, Sodium Level 130L, Potassium Level 4.1, Chloride Level 100, Carbon Dioxide Level 19L, Anion Gap 11, Blood Urea Nitrogen 8, Creatinine 0.70, Estimat Glomerular Filtration Rate > 60, BUN/Creatinine Ratio 11, Glucose Level 276H, Calcium Level 8.3L, Corrected Calcium 9.0, Total Bilirubin 0.7, Aspartate Amino Transf (AST/SGOT) 13, Alanine Aminotransferase (ALT/SGPT) 11, Alkaline Phosphatase 194H, Total Protein 6.6, A lbumin 3.1L Microbiology 05/15/19 Urine Culture - Preliminary, Resulted Gram Negative [place] Home Meds Active Reported Tramadol HCl 50 Mg Tablet 100 Mg PO TID PRN Potassium Chloride 20 Meq Tab.er.prt 20 Meq PO DAILY Pantoprazole Sodium 40 Mg Tablet.dr 40 Mg PO DAILY Ondansetron Odt (Ondansetron) 4 Mg Tab.rapdis 4 Mg PO Q4H PRN Metoprolol Tartrate 25 Mg Tablet 12.5 Mg PO BID HOLD IF SBP <100 OR PULSE <60 Buspirone HCl 5 Mg Tablet 5 Mg PO TID Vitamin D3 (Cholecalciferol (Vitamin D3)) 1,000 Unit Capsule 2,000 Unit PO DAILY Tylenol Arthritis (Acetaminophen) 650 Mg Tablet.er 650 Mg PO Q6H PRN Multivitamins (Multivitamin) 1 Each Tablet 1 Tab PO DAILY Folic Acid 1 Mg Tablet 1 Mg PO DAILY Assessment/Pt Instructions Patient . Discharge Planning: <30 minutes discharge planning Discharge Instructions Discharge Diet: No Restrictions Activity as Tolerated: Yes Discharge Physical Examination Vital Signs Vital Signs Date Time Temp Pulse Resp B/P (MAP) Pulse Ox O2 Delivery O2 Flow Rate FiO2 05/17/19 08:00 Vapotherm 40.00 50 05/17/19 08:00 37.4 117 22 194/91 (125) 22 General Appearance: No Apparent Distress HEENT: Other (pupils fixed and dilated without reaction to light) Respiratory: No Respiratory Distress, Other (absent breath sounds) Cardiovascular: Other (asystole, no palpable pulses) Skin: Cool, Cyanosis, Mottled Neurologic/Psychiatric: Other (unresponsive) Allergies: Uncoded Allergies: UNKNOWN BLADDER MED (Allergy, Unknown, 10/03/18) none (Adverse Reaction, Unknown, 08/20/14) Discharge Summary Date of Admission May 15, 2019 at 19:31 Date of Discharge Discharge Date: May 17, 2019 Discharge Time: 10:23 Admission Diagnosis Altered mental status Comfort Measures/ End of Life Care: Pallative Care Advance Care discuss with: family member (s) () Plan: initiate discussion, identified end-of-life goals Time spent on discussion (min): 30 Cardiopulmonary Arrest: Cardiorespiratory Arrest Date of : May 17, 2019 Time of : 10:23 Discharge Diagnosis Acute ischemic stroke (1) Acute ischemic stroke Status: Acute (2) Severe sepsis Status: Acute (3) UTI (urinary tract infection) Status: Acute (4) Lactic acidosis Status: Resolved (5) Hyponatremia Status: Acute (6) GERD (gastroesophageal reflux disease) Status: Chronic (7) Hyperkalemia Status: Resolved Clinical Quality Measures DVT/VTE Risk/Contraindication: Risk Factor Score Per Nursin RFS Level Per Nursing on Admit: 4+=Very High ELISABETH NAQVI MD May 17, 2019 13:54 POS
--- NOTE | 2019-05-17 14:12 | NUR ---
body released to [facility]
--- NOTE | 2019-05-18 16:43 | Physician Query Clarification ---
PQ-Present on Admission Admission/Discharge Admission Date: May 15, 2019 at 19:31 Discharge Date: May 17, 2019 at 14:14 Question: Acute ischemic stroke was documented in H&P on 05/16/19. Can you specify if this condition was present on admission? Please document a response in Progress Note or Discharge Summary. 1. Yes - Condition was present at the time of inpatient admission. 2. No - Condition was not present at the time of inpatient admission and it developed during the inpatient stay. 3. W - Provider is unable to clinically determine whether condition was present on admission or not. 4. Other [please specify] PHYSICIAN RESPONSE Condition was Present on Admit: Yes Explanation of clincal finding Acute ischemic stroke present on admission although not visualized on initial CT imaging but was later identified on MRI Please remember a lack of response to the above will prompt a phone page by [facility]/Coding staff. In responding to this query, please exercise your independent professional judgment. The purpose of this communication is to more accurately reflect the complexity of your patients condition. The fact that a question is asked does not imply that any particular answer is desired or expected. Thank you for your timely response to this clarification. Requestors name: Sonya Bailey Phone # [phone] THIS PHYSICIAN QUERY FORM IS A PERMANENT PART OF THE MEDICAL RECORD SONYA CHAVEZ May 18, 2019 16:43 ELISABETH GAY MD May 19, 2019 14:27 POS
--- NOTE | 2019-07-08 00:06 | Physician Query Clarification ---
SONYA CHAVEZ 07/08/19 0006: PQD17 Principal Diagnosis Principal Diagnosis Document Diagnosis QUESTION: Please specify the condition(s) that was chiefly responsible for occasioning the admission to the hospital after study/evaluation based on your medical judgment. 1. Sepsis due to UTI 2. Ischemic stroke Vehicle Calibration Engineer Note Vehicle Calibration Engineer Note Please remember a lack of response to the above will prompt a phone page by CDI/coding staff. In responding to this query, please exercise your independent professional judgment. The purpose of this communication is to more accurately reflect the complexity of your patients condition. The fact that a question is asked does not imply that any particular answer is desired or expected. Thank you for your timely response to this clarification. Requestors name: Sonya Bailey THIS PHYSICIAN QUERY FORM IS A PERMANENT PART OF THE MEDICAL RECORD ELISABETH NAQVI MD 07/10/19 1731: PQD17 Principal Diagnosis Question Chief Reason for Admission Aft: Sepsis due to UTI (ischemic stroke identified after admission) SONYA CHAVEZ Jul 08, 2019 00:06 ELISABETH NAQVI MD Jul 10, 2019 17:31
== END 2019-05-17 14:14 | disposition expired | DRG 871 ==
LOC: EDUNIT# 18:44 → ER FS 18:46 → 4TH 19:31
PROVIDERS: ADMIT Internal Medicine; ATTEND Internal Medicine
DX: A41.9 Sepsis, unspecified organism (principal); R65.20 Severe sepsis without septic shock; I63.9 Cerebral infarction, unspecified; N30.00 Acute cystitis without hematuria; E11.65 Type 2 diabetes mellitus with hyperglycemia; E87.2 Acidosis; E87.1 Hypo-osmolality and hyponatremia; G81.91 Hemiplegia, unspecified affecting right dominant side; Z66 Do not resuscitate; R47.02 Dysphasia; R13.10 Dysphagia, unspecified; R32 Unspecified urinary incontinence; K21.9 Gastro-esophageal reflux disease without esophagitis; M06.9 Rheumatoid arthritis, unspecified; F03.90 Unspecified dementia, unspecified severity, without behavioral disturbance, psychotic disturbance, mood disturbance, and anxiety; H26.9 Unspecified cataract; E87.5 Hyperkalemia; I10 Essential (primary) hypertension; Z96.60 Presence of unspecified orthopedic joint implant; Z87.19 Personal history of other diseases of the digestive system
CPT/HCPCS: 36415; 51702; 70450; 70544; 70553; 71045; 80053; 80061; 81000; 82962; 83605; 85025; 87040; 87088; 87186; 93005; 93880; 94640; 94760; 96361; 96374; 96375